=== PATIENT | male | born 1980 | race African-American/Black ===

== ENCOUNTER 2017-11-22 01:35 | Inpatient (IN) | payer MEDICARE, MEDICAID ==
[2017-11-22 02:39] LABS: #Eosinphils 0.1 thou/uL (0.0-0.7); #Lymphocytes 1.6 thou/uL (1.20-3.40); #Monocytes 0.9 thou/uL (0.11-0.59); %Basophils 0.6 % (0.0-1.0); %Eosinophils 1.8 % (0.0-10.0); %Lymphocytes 20.3 % (21.0-51.0); %Monocytes 12.2 % (0.0-10.0); %Neutrophils 65.1 % (42.0-75.0); Hemoglobin 10.1 g/dL (14.0-18.0); Mean Corpuscular HGB CONC 32.7 g/dL (32.0-36.0); Mean Corpuscular Hemoglobin 30.8 pg (27.0-31.0); Mean Corpuscular Volume 94.2 fl (80.0-94.0); Mean Platelet Volume 11.1 fL (7.4-10.4); Platelet Count 127 thou/uL (130-400); RBC Distribution Width 14.6 % (11.5-14.5); Red Blood Cell (RBC) Count 3.29 mill/uL (4.70-6.10); White Blood Cell (WBC) Count 7.7 thou/uL (4.8-10.8)
[2017-11-22] MEDS ORDERED: Calcium Gluc 4.6 MEQ/10 ML (100 MG/ML) ONE (02:39)
[2017-11-22 03:00] LABS: ALT (SGPT) 17 U/L (8-55); AST (SGOT) 19 U/L (5-34); Alkaline Phosphatase 169 U/L (40-150); Anion Gap 19 mmol/L (10-20); BUN (Urea Nitrogen) 108 mg/dL (8.9-20.6); Bilirubin, Total 0.7 mg/dL (0.2-1.2); Calc. Creatinine Clearance 0 mL/min (70-130); Calcium 8.1 mg/dL (7.8-10.44); Carbon Dioxide 21 mmol/L (22-29); Chloride 102 mmol/L (98-107); Estimated GFR-MDRD 5; Globulin 2.9 g/dL (2.4-3.5); Glucose 483 mg/dL (70-105); Protein, Total 6.9 g/dL (6.0-8.3); Sodium 134 mmol/L (136-145)
[2017-11-22 03:03] LABS: CKMB 4.1 ng/mL (0-6.6); Troponin I Less than 0.010 ng/mL (< 0.028)
[2017-11-22 03:04] LABS: Potassium 8.1 mmol/L (3.5-5.1)
[2017-11-22] MEDS ORDERED: Insulin Regular 300 UNITS/3 ML VIAL ONE (03:25)
[2017-11-22] MEDS ORDERED: Dextrose 50% Abboject 50 ML SYRINGE ONE (03:25)
[2017-11-22] MEDS ORDERED: Sodium Bicarb 50 MEQ/50 ML Abboject 8.4% SYRINGE ONE (03:25)
[2017-11-22] MEDS ORDERED: Albuterol Sulfate 2.5 mg/3 ml Neb ONE (03:27)
[2017-11-22] MEDS ORDERED: Acetaminophen 325 MG TAB PO PRN (05:05)
[2017-11-22] MEDS ORDERED: Ondansetron HCl/PF 4 MG/2 ML Vial IVP PRN ×2 (05:05→06:04)
[2017-11-22] MEDS ORDERED: Ondansetron ODT 4 MG TAB SL PRN (05:05)
[2017-11-22] MEDS ORDERED: cloNIDine 0.1 MG TAB PO PRN (06:04)
[2017-11-22] MEDS ORDERED: Acetaminophen 500 MG TAB PO PRN (06:04)
[2017-11-22] MEDS ORDERED: hydrALAZINE 20 MG/ML VIAL SLOW IVP PRN (06:04)
[2017-11-22] MEDS ORDERED: Ondansetron ODT 4 MG TAB PO PRN (06:04)
[2017-11-22] MEDS ORDERED: HumaLOG 300 UNITS/3 ML VIAL SC PRN ×2 (06:04)
[2017-11-22] MEDS ORDERED: Dextrose 5% in Water 1,000 ML IV PRN (06:04)
[2017-11-22] MEDS ORDERED: Dextrose 50% Abboject 50 ML SYRINGE SLOW IVP PRN (06:04)
[2017-11-22 06:23] VITALS: BMI 23.9
--- NOTE | 2017-11-22 07:00 | HP ---
DATE OF ADMISSION: 11/22/2017 PRIMARY CARE PHYSICIAN: Dr. Haydee Guidry. PRIMARY CHIEF SCIENCE OFFICER: Dr. Gonzalez. CHIEF COMPLAINT: High blood sugar. HISTORY OF PRESENT ILLNESS: This is a 37-year-old -Mexican male who presents to [facility] in transport by EMS personnel after patient alerted EMS that he felt dizzy and had high glucose readings. The patient with longstanding history of diabetes mellitus type 1, poorly controlled, on home insulin. The patient states he took his insulin approximately 20 minutes prior to EMS arrival at which point EMS noted an initial glucose at around 600 and 411 in the emergency dep artment. The patient with a longstanding history of noncompliance, missing his regular hemodialysis session in the last 3-5 days. The patient also admits to the use of marijuana and PCP as well as smo des up to a half a pack of cigarettes daily. The patient with longstanding history of multiple admi ssions to [facility] dating back to 2012. The patient does state that he has some abdominal pain and dizziness, but no fever or chills. Some generalized weakness and loose stool s. The patient did not take any specific home remedies or alleviating medications. In the emergency room, the patient underwent general evaluation with metabolic screening showing potassium of 8.1, he moglobin of 13.11 and glucose ranging between 411 to 483. The patient was treated with 10 units of N ovolin R insulin IV push as well as sodium bicarbonate x1 amp, albuterol sulfate 10 mg nebulized and calcium gluconate 1 amp. The patient was also evaluated by the Nephrology Service, undergoing curren t urgent hemodialysis. PAST MEDICAL HISTORY: 1. Diabetes mellitus type 1, insulin requiring, poorly controlled. 2. Noncompliance. 3. Polysubstance abuse. 4. End-stage renal disease on hemodialysis. 5. Hypertension. 6. Peripheral vascular disease. 7. Tobacco abuse. 8. Chronic normocytic anemia secondary to chronic kidney disease. PAST SURGICAL HISTORY: 1. Status post AV fistula placement. 2. 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 CURRENT MEDICATIONS: 1. Amlodipine 10 mg 1 tab p.o. daily. 2. Sensipar 60 mg p.o. daily. 3. Hydralazine 25 mg p.o. t.i.d. 4. Humalog 5 units subcutaneously t.i.d. with meals. 5. Glargine insulin 20 units subcutaneously b.i.d. 6. Sertraline 25 mg p.o. daily. 7. Renvela 800 mg 3 tabs p.o. t.i.d. with meals. ALLERGIES: PENICILLIN. FAMILY HISTORY: Positive for diabetes mellitus. SOCIAL HISTORY: Patient lives with his mother in [facility]. Smokes up to half a pack of cig arettes daily. Current use of marijuana and PCP. REVIEW OF SYSTEMS: The following complete review of systems was negative, unless otherwise mentioned in the HPI or below: Constitutional: Weight loss or gain, ability to conduct usual activities. Skin: Rash, itching. Eyes: Double vision, pain. ENT/Mouth: Nose bleeding, neck stiffness, pain, tenderness. Cardiovascular: Palpitations, dyspnea on exertion, orthopnea. Respiratory: Shortness of breath, wheezing, cough, hemoptysis, fever or night sweats. Gastrointestinal: Poor appetite, abdominal pain, heartburn, nausea, vomiting, constipation, or diarr hea. Genitourinary: Urgency, frequency, dysuria, nocturia. Musculoskeletal: Pain, swelling. Neurologic/Psychiatric: Anxiety, depression. Allergy/Immunologic: Skin rash, bleeding tendency. PHYSICAL EXAMINATION: VITAL SIGNS: On admission, blood pressure 148/73, pulse 87, respiratory rate 18, temperature 97.5 de grees Fahrenheit, O2 saturation 95% on room air. GENERAL APPEARANCE: This is a 37-year-old -Mexican male lying on the hospital bed with a tow el over his face, in no acute distress. HEENT: Pupils are equal, round, and reactive to light and accommodation. Extraocular muscles are in tact. No scleral icterus, no conjunctival injection. Nares patent. OP is clear. NECK: Supple, no cervical adenopathy, no thyromegaly, no carotid bruits, no JVD appreciated. Cervic al spine with full active and passive range of motion. No meningeal signs appreciated. CHEST: Scattered coarse sounds in the bases, otherwise clear. CARDIOVASCULAR: S1, S2 with tachycardia. ABDOMEN: Flat, soft, nontender, nondistended. Bowel sounds are positive in all four quadrants. The re is no hepatosplenomegaly, no abdominal bruits, no rebound or guarding appreciated. EXTREMITIES: Warm and dry with fair turgor. Right zjoxy-azp-jpcf amputation noted. Pulses palpable distally on the left lower extremity at the dorsalis pedis, posterior tibial, and popliteal artery. Left upper extremity with AV fistula in place. NEUROLOGIC: Cranial nerves II through XII are grossly intact. No focal or lateralizing signs apprec iated. PERTINENT LABORATORY DATA AND X-RAY FINDINGS: Sodium 134, potassium 8.1, chloride 102, CO2 of 21, BU N 108, creatinine 13.11. Estimated GFR 5, glucose 483, lactic acid level 0.7. LFTs within normal li mits. Troponin I negative x1. Albumin 4.0. CBC showed a white blood cell count of 7.7, hemoglobin 10, hematocrit 31, MCV 94, platelet count 127 with 65% neutrophils. Beta hydroxybutyrate level 0.07. EKG dated 11/22/2017 by my interpretation shows sinus tachycardia with heart rates in the low 100s. Normal R-wave progression noted in the precordial leads. Left axis deviation. Incomplete right bu ndle miranda block pattern noted. Mild widening of the QRS complex. No acute ST-T wave changes noted . ASSESSMENT AND PLAN: 1. Severe hyperkalemia secondarily to end-stage renal disease and missed hemodialysis. Patient to [facility] urgent hemodialysis at the direction of the Nephrology Service. Continue serial potassium mon itoring. Continue telemetry monitoring in the ICU. The patient initially received insulin, calcium gluconate, and sodium bicarbonate in the emergency room. 2. End-stage renal disease with hemodialysis and noncompliance. The patient will undergo urgent hem odialysis at the direction of Nephrology Service. Case management consult to assist with coordinatio n of outpatient hemodialysis. 3. Diabetes mellitus type 1, insulin requiring, uncontrolled. We will resume home regimen to includ e Levemir 20 units subcutaneously b.i.d. Insulin sliding scale for reflexive coverage. ADA diet. 4. Polysubstance use. We will offer resources for drug abstinence prior to discharge. 5. Chronic anemia secondary to chronic kidney disease. Stable currently. Repeat CBC and monitor tr end. 6. Prophylaxis. Sequential compression devices while in bed. Pepcid 20 mg p.o. b.i.d. 7. Code status is full. Surrogate medical decision maker is the patient's mother.
[2017-11-22 07:08] LABS: HBSAg Index 0.31 S/CO (0-0.99); Hep B Surf Ag Non-Reactive S/CO (NonReactive)
[2017-11-22] MEDS ORDERED: Famotidine 20 MG TAB PO SCH (09:00)
[2017-11-22] MEDS ORDERED: Non-Formulary Item 1 EACH (Insulin Glargine,Hum.Rec.Anlog 20 UNIT) SQ SCH (09:00)
[2017-11-22] MEDS ORDERED: Insulin Detemir 100 UNITS/ML 20 UNITS in Pre-Filled Syringe 1 EACH SC SCH (09:00)
[2017-11-22] MEDS ORDERED: Cinacalcet HCl 30 MG TAB PO SCH (09:00)
[2017-11-22] MEDS: Sevelamer Carbonate 800 MG TAB PO SCH ×2 (10:10→14:05)
[2017-11-22] MEDS: hydrALAZINE 25 MG TAB PO SCH ×3 (10:12→14:36)
[2017-11-22] MEDS: Amlodipine 10 MG TAB PO SCH ×2 (10:12→11:50)
--- NOTE | 2017-11-22 10:15 | CON ---
DATE OF CONSULTATION: 11/22/2017 NEPHROLOGY CONSULTATION REASON FOR CONSULTATION: Hyperkalemia. HISTORY OF PRESENT ILLNESS: A 37-year-old gentleman who presented to the hospital after missing dial ysis for 2 treatments with potassium of 8. The patient denies any nausea, vomiting or chest pain. PAST MEDICAL HISTORY: Significant for hypertension, anemia, end-stage renal disease, history of ampu tation, history of noncompliance, history of drug use, history of psychosocial disorder, history of p eripheral vascular disease, tobacco abuse, history of AV fistula placement, history of tunneled dialy sis catheter. HOME MEDICATIONS: List reviewed. HOSPITAL MEDICATIONS: List reviewed. ALLERGIES: Reviewed. REVIEW OF SYSTEMS: A 15 point review of systems was performed and was negative except for positives noted above. GENERAL: Weakness- HEAD: Headache- NECK: No swelling or lumps. NOSE: No epistaxis or discharge. EYES: No diplopia or pain. RESPIRATORY: Dyspnea- CARDIOVASCULAR: Chest pain- GASTROINTESTINAL: Nausea- /DIRECTOR OF GOLF: Hematuria- MUSCULOSKELETAL: No joint pain. NEUROPSYCHIATIC SYSTEMS: No suicidal ideation. No ideation. SKIN: Denies any rash or ulcer. CONSTITUTIONAL: No fever or chills. FAMILY HISTORY: Negative for ESRD. ALLERGIES: Reviewed. PHYSICAL EXAMINATION: GENERAL: On examination, patient is awake, alert. VITAL SIGNS: Afebrile, pulse 87, breathing at 16, blood pressure 140/73. HEAD/NECK: Normocephalic. Atraumatic. EYES: EOMI. No deformity. EARS: Clear. No ulcers. NOSE: Intact. No lesions. MOUTH: Clear. No discharge. THROAT: Clear. No exudate. LUNGS: Clear. No crackles. CARDIAC: S1, S2. No rub. ABDOMEN: Benign. BS+. GENITALIA/RECTUM: [place] absent. BACK/EXTREMITIES: Edema 0+ Ulcer- NEUROLOGICAL: Alert and motor intact. SKIN: Rash- Bruise- LYMPHATICS: Edema- Ulcer- LABORATORY DATA: Show potassium 8. ASSESSMENT AND PLAN: 1. Stage 6 chronic kidney disease. We will plan hemodialysis. 2. Hypertension, plan ultrafiltration. 3. Anemia, stable. 4. Medications based on glomerular filtration rate are appropriate. Noncompliance is a major issue.
[2017-11-22 10:21] VITALS: TEMP 98.3
--- NOTE | 2017-11-22 11:57 | PDOC.PN ---
- Subjective Encounter Start Date: 11/22/17 Encounter Start Time: 10:45 Subjective: awake, getting HD now -: no sob or palp - Objective Resuscitation Status: Resuscitation Status FULL:Full Resuscitation MAR Reviewed: Yes Vital Signs & Weight: Vital Signs (12 hours) Temp Pulse Resp Pulse Ox 11/22/17 11:50 102 H 11/22/17 10:21 98.3 F 11/22/17 10:12 102 H 11/22/17 08:00 97.8 F 102 H 20 11/22/17 05:00 96.5 F L 100 20 100 Most Recent Monitor Data Heart Rate from ECG 105 NIBP 165/53 NIBP BP-Mean 106 Respiration from ECG 14 SpO2 100 I&O: 11/21/17 11/22/17 11/23/17 06:59 06:59 06:59 Intake Total 0 200 Balance 0 200 Result Diagrams: 11/22/17 02:18 11/22/17 02:18 Additional Labs: Accuchecks 11/22/17 11/22/17 08:17 05:03 POC Glucose 141 H 265 H Phys Exam - Physical Examination HEENT: PERRLA, moist MMs Neck: no JVD, supple Respiratory: no wheezing, no rales Cardiovascular: RRR, no significant murmur Gastrointestinal: soft, non-tender, positive bowel sounds Musculoskeletal: no edema, pulses present Neurological: non-focal, moves all 4 limbs Psychiatric: A&O x 3 Dx/Plan (1) Non-compliance with renal dialysis Code(s): Z91.15 - PATIENT'S NONCOMPLIANCE WITH RENAL DIALYSIS Status: Acute (2) Hyperkalemia Code(s): E87.5 - HYPERKALEMIA Status: Acute (3) Anemia of renal disease Code(s): D63.1 - ANEMIA IN CHRONIC KIDNEY DISEASE Status: Chronic (4) Anxiety and depression Code(s): F41.9 - ANXIETY DISORDER, UNSPECIFIED; F32.9 - MAJOR DEPRESSIVE DISORDER, SINGLE EPISODE, UNSPECIFIED Status: Chronic (5) Diabetes mellitus type 1 Code(s): E10.9 - TYPE 1 DIABETES MELLITUS WITHOUT COMPLICATIONS Status: Chronic (6) Diastolic CHF Code(s): I50.30 - UNSPECIFIED DIASTOLIC (CONGESTIVE) HEART FAILURE Status: Chronic Qualifiers: Congestive heart failure chronicity: chronic (7) Hypertension Code(s): I10 - ESSENTIAL (PRIMARY) HYPERTENSION Status: Chronic Qualifiers: Hypertension type: essential hypertension Qualified Code(s): I10 - Essential (primary) hypertension - Plan is getting emergent HD now -: may tx to telemetry after HD if her bmp is stable -: counselled reg compliance with med and HD -: is on levemir 20u bid, norvasc and hydralazine -: might need repeat HD in am prior to dc * . Review of Systems - Medications/Allergies Allergies/Adverse Reactions: Allergies Allergy/AdvReac Type Severity Reaction Status Date / Time Penicillins Allergy Unknown Verified 03/03/17 13:22 Medications: Current Medications Acetaminophen (Tylenol) 1,000 mg PO Q6H PRN PRN Reason: Headache/Fever or Mild Pain Amlodipine Besylate (Norvasc) 10 mg PO DAILY [facility] Last Admin: 11/22/17 11:50 Dose: 10 mg Cinacalcet (Sensipar) 60 mg PO DAILY [facility] Last Admin: 11/22/17 10:11 Dose: 60 mg Clonidine (Catapres) 0.1 mg PO Q4H PRN PRN Reason: Systolic BP > 180 Dextrose/Water (Dextrose 50%) 25 gm SLOW IVP PRN PRN PRN Reason: Hypoglycemia Famotidine (Pepcid) 20 mg PO DAILY [facility] Last Admin: 11/22/17 10:11 Dose: 20 mg Glucagon (Glucagon) 1 mg IM PRN PRN PRN Reason: Hypoglycemia Hydralazine HCl (Apresoline) 20 mg SLOW IVP Q4H PRN PRN Reason: Systolic BP > 180 Hydralazine HCl (Apresoline) 25 mg PO TID [facility] Last Admin: 11/22/17 11:50 Dose: 25 mg Dextrose/Water (D5w) 1,000 mls @ 0 mls/hr IV .Q0M PRN; As Directed PRN Reason: Hypoglycemia Insulin Detemir 20 units/ (Miscellaneous Medication) 0.2 mls @ 0 mls/hr SC BID [facility] PRN Reason: As Directed Last Admin: 11/22/17 10:10 Dose: 0.2 mls Influenza Virus Vaccine (Fluzone Quad [id number] Syringe) 0.5 ml IM .ONCE ONE Stop: 11/22/17 21:01 Insulin Human Lispro (Humalog) 0 units SC .MODERATE SLIDING SC PRN PRN Reason: Moderate Correctional Scale Insulin Human Lispro (Humalog) 0 units SC .BEDTIME SLIDING SC PRN PRN Reason: Bedtime Correctional Scale Ondansetron HCl (Zofran Odt) 4 mg PO Q6H PRN PRN Reason: Nausea/Vomiting Ondansetron HCl (Zofran) 4 mg IVP Q6H PRN PRN Reason: Nausea/Vomiting Sertraline HCl (Zoloft) 25 mg PO DAILY [facility] Last Admin: 11/22/17 10:11 Dose: 25 mg Sevelamer Carbonate (Renvela) 2,400 mg PO TID-WM [facility] Last Admin: 11/22/17 10:10 Dose: 2,400 mg Sodium Chloride (Flush - Normal Saline) 10 ml IVF Q12HR [facility] Last Admin: 11/22/17 10:12 Dose: 10 ml Sodium Chloride (Flush - Normal Saline) 10 ml IVF PRN PRN PRN Reason: Saline Flush
[2017-11-22 14:27] LABS: Anion Gap 15 mmol/L (10-20); BUN (Urea Nitrogen) 29 mg/dL (8.9-20.6); Calc. Creatinine Clearance 21 mL/min (70-130); Calcium 8.3 mg/dL (7.8-10.44); Carbon Dioxide 28 mmol/L (22-29); Chloride 99 mmol/L (98-107); Estimated GFR-MDRD 15; Glucose 221 mg/dL (70-105); Potassium 5.2 mmol/L (3.5-5.1); Sodium 137 mmol/L (136-145)
--- NOTE | 2017-11-22 14:47 | DIS ---
DATE OF ADMISSION: 11/22/2017 DATE OF DISCHARGE: 11/22/2017 DISCHARGE DISPOSITION: To home. PRIMARY DISCHARGE DIAGNOSES: End-stage renal disease, noncompliant with hemodialysis with hyperkalemia and volume overload, resolved. SECONDARY DISCHARGE DIAGNOSES: Chronic anemia, anxiety, depression, noncompliance with dialysis and medication, diastolic congestive heart failure, diabetes mellitus type 1, hypertension. PROCEDURES DONE DURING HOSPITALIZATION: The patient has had an emergent dialysis done this morning. H&H is 10 and 31. Initial potassium of 8.1 with a BUN of 108 and creatinine of 13. Discharge potassium was 5.2 with a BUN and creatinine of 29 and 5.1. Cardiac enzymes x1 is negative. DISCHARGE MEDICATIONS: Patient to continue all his home medications as before including Norvasc 10 mg daily, Sensipar 60 mg daily, Humalog 5 units subcutaneous 3 times daily based on sliding scale, hydralazine 25 mg 3 times daily, Lantus 20 units subcu twice daily, sertraline 25 mg daily, sevelamer 2400 mg p.o. 3 times daily. ALLERGIES: Allergic to PENICILLIN. DISCHARGE PLAN: Patient to follow up with primary care physician in one week and Dr. Gonzalez as advised. BRIEF COURSE DURING HOSPITALIZATION: Patient initially came to ER with complaints of feeling dizzy and high glucose readings at home. He had also mentioned that he missed his regular dialysis. On arrival, his potassium was 8.1 with a creatinine of nearly 13. The patient was scheduled for emergent hemodialysis. He has had 4-hour session and a repeat potassium level after dialysis is 5.2. His BUN and creatinine at the time of discharge is 29 and 5.1. He needs to have his scheduled HD per prior regimen. He is hemodynamically stable and will be shortly discharged home. He has been cleared by Dr. Gonzalez and Dr. Moreno for critical care. Please see a [id number] documentation on [facility] for the day of discharge. [facility]OSPITALAngelia
[2017-11-22] MEDS ORDERED: FLU VACC QS2017-18 36 mo. & older 0.5 ML SYRINGE IM ONE (21:00)
--- NOTE | 2017-11-23 01:14 | CON ---
DATE OF CONSULTATION: 11/22/2017 HISTORY OF PRESENT ILLNESS: Mr. Swartz is a 37-year-old gentleman I have known him for many yea rs, his mom works with the hospital. Unfortunately, Mr. Swratz is a dialysis patient now. I di d not see him for quite sometime, but his family tell me he was incarcerated for a period of time. Maximo martell missed dialysis early in the week and then yesterday started getting short of breath. He is not co mpliant with fluid restriction or management of his diabetes. He subsequently was admitted and has b een dialyzed and says he feels like he is back to his baseline. He has absolutely no complaints. PAST MEDICAL HISTORY: 1. Remarkable for diabetes. 2. History of substance abuse. 3. End-stage renal disease on dialysis. 4. Hypertension. 5. Peripheral vascular disease. 6. Anemia of chronic disease. 7. History of vascular access procedures. 8. History of right [id number] amputation secondary to infectious process in his foot. MEDICATIONS: He is on amlodipine, Sensipar, hydralazine, insulin, sertraline, and Renvela prior to a dmission. SOCIAL HISTORY: Still smoking. He admits to using marijuana and PCP. He is not a daily drinker. FAMILY HISTORY: Positive for diabetes. Negative for lung disease at an early age. REVIEW OF SYSTEMS: Ten points otherwise completely negative. He says he feels like that he was here just simply because he skipped dialysis. He did not give me a reason why he skipped dialysis. PHYSICAL EXAMINATION: VITAL SIGNS: Blood pressure 167/70, heart rate is 102, respiratory rate was in the teens. No distre ss. HEENT: Pupils are equal. Sclerae is anicteric. NECK: Supple. LUNGS: Clear. HEART: Regular rhythm. ABDOMEN: Soft and nontender. EXTREMITIES: His lower extremities are warm. LABORATORY DATA: White count 7.7, hemoglobin 10.1, platelets 127. Sodium 134, potassium 8.1, chlori de 102, bicarbonate 21, BUN 108, creatinine 13. Today this afternoon, his sodium is 137, potassium 5 .2, chloride 99, bicarbonate 28, BUN 29, creatinine 5.14, glucose 221. Beta hydroxybutyrate was done . Drug screen was done. IMPRESSION: Noncompliance both with medications and dialysis. He appears to be clinically stable, e nough to discharge. He can be seen in dialysis clinic. Fridays is his dialysis day. Dr. Gonzalez will decide on whether or not he needs dialysis tomorrow, but we all agree that he is a cand idate for discharge and is medically stable at this point in time. So 50-minute consult greater than 50% of the time was spent coordinating in the care unit discussing care with physicians. There is no family available.
--- NOTE | 2017-11-25 13:47 | EKG ---
Test Reason : Blood Pressure : / mmHG Vent. Rate : 085 BPM Atrial Rate : 085 BPM P-R Int : 172 ms QRS Dur : 108 ms QT Int : 362 ms P-R-T Axes : 057 -37 066 degrees QTc Int : 430 ms Normal sinus rhythm Left axis deviation Incomplete right bundle branch block Anteroseptal infarct , age undetermined Abnormal ECG Confirmed by PAUL ROJAS ([id number]), assistant film editor ABRIL VAZQUEZ ([id number]) on 11/25/2017 1:47:15 PM Referred By: Confirmed By:PAUL ROJAS
== END 2017-11-22 15:30 | disposition home or self-care (01) | DRG 640 ==
LOC: ERS 01:35 → CCU 04:54
PROVIDERS: ADMIT Family Medicine; ATTEND Family Medicine
PROC: 5A1D70Z Performance of Urinary Filtration, Intermittent, Less than 6 Hours Per Day (ICD-10-PCS; principal; 2017-11-22)
DX: E87.5 Hyperkalemia (principal); N18.6 End stage renal disease; I13.2 Hypertensive heart and chronic kidney disease with heart failure and with stage 5 chronic kidney disease, or end stage renal disease; E10.22 Type 1 diabetes mellitus with diabetic chronic kidney disease; E10.51 Type 1 diabetes mellitus with diabetic peripheral angiopathy without gangrene; I50.32 Chronic diastolic (congestive) heart failure; E10.65 Type 1 diabetes mellitus with hyperglycemia; Z99.2 Dependence on renal dialysis; Z91.15 Patient's noncompliance with renal dialysis; Z79.4 Long term (current) use of insulin; F17.210 Nicotine dependence, cigarettes, uncomplicated; Z83.3 Family history of diabetes mellitus; F19.90 Other psychoactive substance use, unspecified, uncomplicated; D63.1 Anemia in chronic kidney disease; F41.9 Anxiety disorder, unspecified; F32.9 Major depressive disorder, single episode, unspecified; Z89.511 Acquired absence of right leg below knee; Z91.14 Patient's other noncompliance with medication regimen
CPT/HCPCS: 36415; 36416; 80053; 82010; 82553; 83605; 84484; 85025; 87340; 90935; 93005; 94644; 96374; 96375; G0257; J1815; J7611

== ENCOUNTER 2017-12-08 08:05 | Emergency (ER) | payer MEDICARE, MEDICAID ==
--- NOTE | 2017-12-08 09:10 | RAD ---
PA AND LATERAL VIEWS CHEST: HISTORY: Fall, right-sided chest pain, rib pain. FINDINGS/IMPRESSION: Comparison is made with the exam of 06/02/17. The heart size is borderline. Vascular stents in the left upper extremity and subclavian region are again seen. There is mild pulmonary vascular congestion. No lobar consolidation, pneumothoraces, or pleural effusions are seen. POS: [facility]
--- NOTE | 2017-12-08 09:12 | RAD ---
RIGHT RIB SERIES: HISTORY: Right-sided rib pain, fell in the shower 2 days ago. FINDINGS/IMPRESSION: No right-sided rib fracture is seen. POS: [facility]
--- NOTE | 2017-12-16 18:03 | EKG ---
Test Reason : Blood Pressure : / mmHG Vent. Rate : 080 BPM Atrial Rate : 080 BPM P-R Int : 140 ms QRS Dur : 086 ms QT Int : 348 ms P-R-T Axes : 051 025 060 degrees QTc Int : 401 ms Normal sinus rhythm Normal ECG Confirmed by JASSI DUMONT, HEIDY ([id number]), magazine editor VINI DE LA CRUZ ([id number]) on 12/16/2017 6:03:10 PM Referred By: JASSI Confirmed By:HEIDY KEENE MD
== END 2017-12-08 09:29 | disposition home or self-care (01) ==
LOC: ERS 08:05
DX: S23.41XA Sprain of ribs, initial encounter (principal); E78.5 Hyperlipidemia, unspecified; I13.2 Hypertensive heart and chronic kidney disease with heart failure and with stage 5 chronic kidney disease, or end stage renal disease; N18.5 Chronic kidney disease, stage 5; I50.9 Heart failure, unspecified; Z99.2 Dependence on renal dialysis; Z86.73 Personal history of transient ischemic attack (TIA), and cerebral infarction without residual deficits; F17.210 Nicotine dependence, cigarettes, uncomplicated; Z79.899 Other long term (current) drug therapy; Z79.4 Long term (current) use of insulin; W01.0XXA Fall on same level from slipping, tripping and stumbling without subsequent striking against object, initial encounter; Y93.E1 Activity, personal bathing and showering
CPT/HCPCS: 71046; 93005

== ENCOUNTER 2017-12-27 09:00 | Emergency (ER) | payer MEDICARE, MEDICAID ==
--- NOTE | 2017-12-27 09:55 | RAD ---
PORTABLE CHEST: History: Weakness, trauma. Comparison: 12-08-17 FINDINGS: Lungs are clear. No infiltrate. Heart and mediastinum unremarkable. Stent material is seen overlying the region of the left subclavian vein, left axillary vein, and venous structures in the mid to dista l humerus region of the left upper extremity. IMPRESSION: No acute lung process. POS: [facility]
[2017-12-27 10:53] LABS: Band 4 % (5-11); Hemoglobin 12.5 g/dL (14.0-18.0); Lymphocytes 24 % (21-51); MDiff Complete? YES; Mean Corpuscular HGB CONC 32.6 g/dL (32.0-36.0); Mean Corpuscular Volume 92.2 fl (80.0-94.0); Mean Platelet Volume 11.1 fL (7.4-10.4); Monocytes 14 % (0-10); Neutrophil 58 % (42-75); PLT Morphology Comment Appears Decreased; Platelet Count 104 thou/uL (130-400); RBC Distribution Width 14.6 % (11.5-14.5); Red Blood Cell (RBC) Count 4.15 mill/uL (4.70-6.10); White Blood Cell (WBC) Count 5.9 thou/uL (4.8-10.8)
[2017-12-27 11:00] LABS: ALT (SGPT) 8 U/L (8-55); AST (SGOT) 15 U/L (5-34); Alkaline Phosphatase 125 U/L (40-150); Anion Gap 29 mmol/L (10-20); BUN (Urea Nitrogen) 55 mg/dL (8.9-20.6); Bilirubin, Total 0.6 mg/dL (0.2-1.2); Calc. Creatinine Clearance 0 mL/min (70-130); Calcium 8.7 mg/dL (7.8-10.44); Carbon Dioxide 21 mmol/L (22-29); Chloride 89 mmol/L (98-107); Estimated GFR-MDRD 8; Globulin 3.5 g/dL (2.4-3.5); Glucose 483 mg/dL (70-105); Potassium 5.2 mmol/L (3.5-5.1); Protein, Total 7.5 g/dL (6.0-8.3); Sodium 134 mmol/L (136-145)
[2017-12-27 11:10] LABS: CKMB 1.5 ng/mL (0-6.6); Troponin I Less than 0.010 ng/mL (< 0.028)
[2017-12-27] MEDS ORDERED: Insulin Regular 300 UNITS/3 ML VIAL ONE (13:17)
== END 2017-12-27 14:31 | disposition home or self-care (01) ==
LOC: ERS 09:00
DX: R53.1 Weakness (principal); I13.2 Hypertensive heart and chronic kidney disease with heart failure and with stage 5 chronic kidney disease, or end stage renal disease; N18.5 Chronic kidney disease, stage 5; I50.9 Heart failure, unspecified; E11.22 Type 2 diabetes mellitus with diabetic chronic kidney disease; E78.5 Hyperlipidemia, unspecified; F17.210 Nicotine dependence, cigarettes, uncomplicated; Z99.2 Dependence on renal dialysis; Z86.73 Personal history of transient ischemic attack (TIA), and cerebral infarction without residual deficits; Z79.4 Long term (current) use of insulin; Z79.899 Other long term (current) drug therapy
CPT/HCPCS: 36416; 71045; 80053; 82553; 83880; 84484; 85025; 93005; J1815

== ENCOUNTER 2018-01-05 01:38 | Emergency (ER) | payer MEDICARE, MEDICAID | END 2018-01-05 02:06 | disposition left against medical advice (07) | LOC: ERS 01:38 | DX: Z53.21 Procedure and treatment not carried out due to patient leaving prior to being seen by health care provider (principal) ==

== ENCOUNTER 2018-01-09 13:59 | Inpatient (IN) | payer MEDICARE, MEDICAID ==
[2018-01-09 15:31] LABS: Base Excess-Venous -16.4 mmol/L (0 (+/- 2.5)); Bicarbonate (HCO3v) 10.7 mmol/L (1.0-85.0); CO2 Tension (PvCO2) 29.6 mmHg (41.0-51.0); Calcium, Ionized 0.92 mmol/L (1.12-1.32); Hemoglobin - Calc 15.6 g/dL (12.0-18.0); O2 Tension (PvO2) 40.9 mmHg (35.0-45.0); Potassium 7.6 mmol/L (3.4-4.7); T. Carbon Dioxide 11.6 mmol/L (1.0-85.0); pH (Venous) 7.168 (7.35-7.45); vO2 Saturation-calc 63.6 % (94-98)
[2018-01-09 15:39] LABS: Hemoglobin 12.9 g/dL (14.0-18.0); Mean Corpuscular HGB CONC 31.7 g/dL (32.0-36.0); Mean Corpuscular Hemoglobin 29.3 pg (27.0-31.0); Mean Corpuscular Volume 92.6 fl (80.0-94.0); Mean Platelet Volume 11.7 fL (7.4-10.4); Platelet Count 203 thou/uL (130-400); RBC Distribution Width 14.6 % (11.5-14.5); Red Blood Cell (RBC) Count 4.41 mill/uL (4.70-6.10); White Blood Cell (WBC) Count 23.9 thou/uL (4.8-10.8)
[2018-01-09] MEDS ORDERED: Calcium Gluconate 4.6 MEQ in Sodium Chloride 0.9% 100 ML IVPB ONE (15:45)
[2018-01-09 16:07] LABS: Anisocytosis SLIGHT = 6-15 cells (100X) (0-5/hpf); Band 24 % (5-11); Hypochromia SLIGHT = 6-15 cells (100X) (0-5/hpf); Lymphocytes 5 % (21-51); MDiff Complete? YES; Monocytes 7 % (0-10); Neutrophil 64 % (42-75); PLT Morphology Comment Appears Adequate
[2018-01-09 16:09] LABS: ALT (SGPT) Less than 7 U/L (8-55); AST (SGOT) 7 U/L (5-34); Albumin 3.6 g/dL (3.5-5.0); Alkaline Phosphatase 151 U/L (40-150); Anion Gap 44 mmol/L (10-20); BUN (Urea Nitrogen) 115 mg/dL (8.9-20.6); Bilirubin, Total 0.6 mg/dL (0.2-1.2); Calc. Creatinine Clearance 0 mL/min (70-130); Calcium 10.4 mg/dL (7.8-10.44); Carbon Dioxide 10 mmol/L (22-29); Chloride 79 mmol/L (98-107); Estimated GFR-MDRD 3; Globulin 4.8 g/dL (2.4-3.5); Magnesium 2.9 mg/dL (1.6-2.6); Potassium 8.4 mmol/L (3.5-5.1); Protein, Total 8.4 g/dL (6.0-8.3); Sodium 125 mmol/L (136-145)
[2018-01-09 16:10] LABS: Glucose 895 mg/dL (70-105)
[2018-01-09] MEDS ORDERED: Insulin Regular 300 UNITS/3 ML VIAL ONE (16:14)
[2018-01-09] MEDS ORDERED: Albuterol Sulfate 2.5 mg/3 ml Neb ONE (16:19)
[2018-01-09] MEDS ORDERED: Albuterol Sulfate 2.5 mg/0.5 ml Neb ONE (16:19)
[2018-01-09] MEDS ORDERED: Insulin Regular 100 units/100 ml in NS IVPB SCH (17:00)
[2018-01-09 18:04] LABS: HBSAg Index 0.17 S/CO (0-0.99); Hep B Surf Ag Non-Reactive S/CO (NonReactive)
--- NOTE | 2018-01-09 18:33 | RAD ---
RADIOGRAPH CHEST 1 VIEW: Date: 01/09/18 Time: 5:25 p.m. HISTORY: 37-year-old male with cough. COMPARISON: 12/27/17. FINDINGS: There is a new finding of air space density in the right lower lobe. There is a milder new right uppe r lobe infiltrate. There is unilateral diffuse prominence of the right interstitial markings througho ut the right lung zones. The left lung remains clear. The cardiomediastinal silhouette is normal. Lat eral costophrenic angles are sharp. Again noted are the multiple metallic left sided vascular stents. IMPRESSION: 1. Right lower lobe pneumonia. 2. Probable right upper lobe pneumonia also. 3. Left subclavian and left axillary vascular stents. ZEB [] POS: [facility]
--- NOTE | 2018-01-09 19:08 | HP ---
PRIMARY CARE PHYSICIAN: The patient does not have a primary care physician. CHIEF COMPLAINT: Not feeling well. HISTORY OF PRESENT ILLNESS: Mr. Brush is a 37-year-old gentleman who has a history of end-stag e renal disease on hemodialysis. He is well known to the [facility] as he has had [facility] over the past few years. The patient says that he was encouraged to come t o the hospital after he talked with his parents and told him that he was not feeling well. He says paz martell basically has just been giving up, he has not gone to dialysis in over a week and has barely been e ating, and when he arrived to the hospital, he was found to be hyperkalemic with a potassium of 8.4. His blood glucose was 895 and he is acidotic with a carbon dioxide level of 10. He also says that h jayshree has been coughing, it has been relatively nonproductive and as well as feeling a bit short of breat h, but no nausea, no vomiting. The patient appears very depressed. He is tearful and is unable to g fiona me any additional history. When asked if he has sought any care or counseling with regard to his depression as I had recently seen him about 6 months ago and had recommended this, he states no. REVIEW OF SYSTEMS: CONSTITUTIONAL: There has been no fevers, no chills, no night sweats. He has had poor appetite. HEENT: No headache, no dizziness, no visual changes, no sore throat, no rhinorrhea, neck pain, no ad enopathy. PULMONARY: He complains of some cough which has been primarily dry, no hemoptysis. CARDIOVASCULAR: He says he has had some pains in his chest, but no PND, no orthopnea, no palpitation s. GASTROINTESTINAL: No abdominal pain, no nausea, no vomiting, no change in bowels. GENITOURINARY: No hematuria, no dysuria. MUSCULOSKELETAL: He denies any joint pains or rash. SKIN AND INTEGUMENT: No skin changes. No rash. PSYCHIATRIC: The patient has been extremely depressed and does not want to go on, but does not have any active plan to hurt himself other than not going to dialysis. PAST MEDICAL HISTORY: Taken from my previous history and physical and includes a history of end-stag e renal disease on hemodialysis, diabetes mellitus type 1 and hypertension, also history of polysubst ance abuse. PAST SURGICAL HISTORY: He has had a right rekan-prf-gltm amputation and a dialysis catheter placed. ALLERGIES: PENICILLIN. SOCIAL HISTORY: He is a nonsmoker, nondrinker. He lives with his mother. FAMILY HISTORY: Significant for diabetes mellitus. MEDICATIONS: These will need to be reconciled with the patient to determine what he is actually curr ently taking. PHYSICAL EXAMINATION: GENERAL: He is alert and oriented. He appears to be in no acute distress. He is a bit cachectic in appearance. VITAL SIGNS: Blood pressure was 123/79, heart rate 107, respiratory rate of 22, and he is afebrile. HEENT: Pupils are equal, round, and reactive. Extraocular muscles are intact. His sclerae are anic teric. Throat: He has extremely dry mucous membranes, actually cracking of the skin on the lips. NECK: There is no adenopathy, no bruits. LUNGS: He has got bilateral rhonchi as well as some rales. There was no wheezing. CARDIOVASCULAR: Heart rate is tachycardic, it is regular. There are no murmurs, clicks, no rubs. ABDOMEN: Soft, nontender, nondistended. Positive for bowel sounds. No rebound, no guarding. EXTREMITIES: There is no edema. He has a left qxhlw-zkl-anin amputation. The right leg, there is n o edema. His dorsalis pedis pulses are palpable, but diminished. NEUROLOGICALLY: The exam is nonfocal. LABORATORY RESULTS: Sodium was 125, potassium 8.4, chloride 79, CO2 is 10, BUN of 115, creatinine 21 , glucose is 895. Beta hydroxybutyrate is 11. 27. White blood cell count is 23.9, hemoglobin 12.9, hematocrit is 40.8, platelet count is 203. Chest x-ray has been ordered. ASSESSMENT AND PLAN: 1. This is a 37-year-old gentleman that has missed over a week's worth of dialysis. He has been fou nd to be hyperkalemic and acidotic. He also has an elevated blood glucose and an elevated anion gap and elevated beta hydroxybutyrate. He also has a significant leukocytosis as well. Therefore likely , the patient has diabetic ketoacidosis as well as uremia from missed dialysis with hyperkalemia and possibly could have a superimposed sepsis as well. He will be admitted to the ICU. His casting molder , Dr. Hurd has already been contacted and the plan is for emergent dialysis. He has been given ca lcium carbonate in the emergency room and EKG which was reviewed by myself did not show any peaked T waves, only some nonspecific ST wave changes with some sinus tachycardia. 2. With regard to the diabetic ketoacidosis, this will be treated with an IV insulin infusion given his history of end-stage renal disease. We will hold off on maintenance IV fluids. He has been give n a liter of normal saline in the ER. Electrolyte abnormalities will need to be adjusted by his neph rologist. 3. Leukocytosis and cough. I suspect he could possibly have a bronchitis or even an early pneumonia . This will be covered with Levaquin renally dosed. 4. Severe depression. He will be placed on an antidepressant. We will continue Zoloft and consult [facility] prior to discharge to get him hooked up with the mental health system, which will hopefully faci litate him getting treatment for depression.
[2018-01-09 20:04] LABS: Lactic Acid 4.9 mmol/L (0.5-2.2)
[2018-01-09] MEDS ORDERED: D5 1/2 NS w/20 mEq KCL 1,000 ML IV PRN (20:33)
[2018-01-09] MEDS ORDERED: NS 0.9% w/ 20 MEQ KCL 1,000 ML/1,000 ML BAG IV PRN ×2 (20:33)
[2018-01-09] MEDS ORDERED: Sodium Chloride 0.9% 1,000 ML IV PRN ×4 (20:33)
[2018-01-09] MEDS ORDERED: Dextrose 5% in Water 1,000 ML IV PRN (20:33)
[2018-01-09] MEDS ORDERED: Dextrose 5 %-0.45 % NaCl 1,000 ML IV PRN (20:33)
[2018-01-09] MEDS ORDERED: Dextrose 50% Abboject 50 ML SYRINGE SLOW IVP PRN (20:36)
[2018-01-09] MEDS ORDERED: ADD ELECTROLYTE REPLACEMENT SET TO PROFILE FS SCH ×2 (20:45)
[2018-01-09] MEDS: Sodium Chloride 0.9% 1,000 ML IV SCH (21:00)
[2018-01-09] MEDS ORDERED: Sodium Chloride 0.9% 1,000 ML IV SCH (21:15)
[2018-01-09 22:54] LABS: Glucose 875 mg/dL (70-105)
[2018-01-09] MEDS ORDERED: Ziprasidone 20 MG VIAL IM SCH (23:45)
[2018-01-10 00:42] VITALS: BMI 19.1
[2018-01-10] MEDS ORDERED: Lorazepam 1 MG TAB PO PRN (07:36)
[2018-01-10] MEDS ORDERED: Benzonatate 100 MG CAP PO PRN (07:36)
[2018-01-10] MEDS ORDERED: Ondansetron HCl/PF 4 MG/2 ML Vial IVP PRN (07:36)
[2018-01-10] MEDS ORDERED: Acetaminophen 325 MG TAB PO PRN ×2 (07:36)
[2018-01-10] MEDS ORDERED: hydrALAZINE 20 MG/ML VIAL SLOW IVP PRN (07:36)
[2018-01-10] MEDS ORDERED: Ondansetron ODT 4 MG TAB PO PRN (07:36)
[2018-01-10] MEDS ORDERED: Metoclopramide HCl 10 MG/2 ML VIAL IVP PRN (07:36)
[2018-01-10] MEDS ORDERED: Heparin 5,000 UNITS/ML VIAL SC SCH ×2 (07:36→08:30)
[2018-01-10] MEDS: Sodium Chloride 0.9% 1,000 ML IV SCH (08:33)
[2018-01-10 08:58] LABS: Anion Gap 19 mmol/L (10-20); BUN (Urea Nitrogen) 47 mg/dL (8.9-20.6); Calc. Creatinine Clearance 9 mL/min (70-130); Calcium 10.2 mg/dL (7.8-10.44); Carbon Dioxide 26 mmol/L (22-29); Chloride 98 mmol/L (98-107); Estimated GFR-MDRD 7; Glucose 88 mg/dL (70-105); Potassium 4.5 mmol/L (3.5-5.1); Sodium 138 mmol/L (136-145)
[2018-01-10] MEDS ORDERED: FLU VACC QS2017-18 36 mo. & older 0.5 ML SYRINGE IM ONE (09:00)
[2018-01-10] MEDS ORDERED: Famotidine 40 MG/4 ML VIAL SLOW IVP SCH (09:00)
[2018-01-10] MEDS ORDERED: Dextrose 50% Abboject 50 ML SYRINGE SLOW IVP PRN (09:33)
[2018-01-10] MEDS ORDERED: Dextrose 5% in Water 1,000 ML IV PRN (09:33)
--- NOTE | 2018-01-10 09:40 | PDOC.PN ---
- Subjective Encounter Start Date: 01/10/18 Encounter Start Time: 09:37 Mr. Brush was seen today in follow-up. He still appears extremely depressed. He does not have any physical complaints. - Objective Resuscitation Status: Resuscitation Status FULL:Full Resuscitation MAR Reviewed: Yes Vital Signs & Weight: Vital Signs (12 hours) Temp Pulse Ox 01/10/18 07:00 98.1 F 01/10/18 01:40 98.7 F 01/10/18 01:30 95 Weight Weight 144 lb 9.972 oz Most Recent Monitor Data Heart Rate from ECG 108 NIBP 98/55 NIBP BP-Mean 68 Respiration from ECG 23 SpO2 97 I&O: 01/09/18 01/10/18 01/11/18 06:59 06:59 06:59 Intake Total 2438.7 50 Balance 2438.7 50 Result Diagrams: 01/09/18 15:17 01/10/18 07:43 Additional Labs: Accuchecks 01/10/18 01/10/18 01/10/18 07:38 06:30 05:19 POC Glucose 88 101 126 H 01/10/18 01/10/18 01/10/18 04:40 03:14 01:55 POC Glucose 173 H 234 H 293 H Phys Exam - Physical Examination HEENT: PERRLA Respiratory: no rhonchi + rales at the right upper lobe, no wheezing Cardiovascular: RRR, no significant murmur, no rub Gastrointestinal: soft, non-tender, positive bowel sounds Musculoskeletal: no edema Dx/Plan (1) Depression Code(s): F32.9 - MAJOR DEPRESSIVE DISORDER, SINGLE EPISODE, UNSPECIFIED Status : Acute (2) Pneumonia Code(s): J18.9 - PNEUMONIA, UNSPECIFIED ORGANISM Status: Acute (3) ESRD (end stage renal disease) on dialysis Code(s): N18.6 - END STAGE RENAL DISEASE; Z99.2 - DEPENDENCE ON RENAL DIALYSIS Status: Acute (4) Hyperkalemia Code(s): E87.5 - HYPERKALEMIA Status: Acute (5) Non-compliance with renal dialysis Code(s): Z91.15 - PATIENT'S NONCOMPLIANCE WITH RENAL DIALYSIS Status: Acute (6) Hypertension Code(s): I10 - ESSENTIAL (PRIMARY) HYPERTENSION Status: Chronic Qualifiers: (7) DKA (diabetic ketoacidoses) Code(s): E13.10 - [facility] DIABETES MELLITUS WITH KETOACIDOSIS WITHOUT COMA Status : Resolved - Plan * Hyperkalemia- resolved after Emergent dialysis * DKA- resolved- will discontinue insulin drip, and blade changer to scheduled Levemis, and a SSI * Pneumonia- CAP vs. HAP ( recent hospitalization and dialysis)- will continue Levaquin for now * HTN- blood pressure is currently low, will hold on re-starting his antihypertensives until his blood pressure raises * Depression- continue Zoloft, and short brief couseling- MR consult when he is medically stable for discharge * Will transfer him out of the ICU.
--- NOTE | 2018-01-10 09:48 | CON ---
DATE OF CONSULTATION: 01/09/2018 CONSULTING PHYSICIAN: Rudy Marie M.D. REASON FOR CONSULTATION: Evaluation and care. REASON FOR ADMISSION: Not feeling well. HISTORY OF PRESENT ILLNESS: This is a 37-year-old -[place] male with history of end-stage re nal disease, hypertension, type 2 diabetes, who came to the hospital after missing dialysis for a wee k and was not feeling well and was found to have hyperkalemic and acidotic and Nephrology is consulte d for maintenance hemodialysis. No fever or chills reported. No nausea or vomiting. PAST MEDICAL HISTORY: Positive for type 2 diabetes, hypertension, end-stage renal disease. PAST SURGICAL HISTORY: Right rgsjr-kxn-vdrw knee amputation, dialysis catheter placement. HOME MEDICATIONS: List is not available now. ALLERGIES: PENICILLIN. SOCIAL HISTORY: No smoking, alcohol or illicit drugs abuse. History of substance abuse in the past. FAMILY HISTORY: Positive for diabetes. REVIEW OF SYSTEMS: The following complete review of systems was negative, unless otherwise mentioned in the HPI or below: Constitutional: Weight loss or gain, ability to conduct usual activities. Skin: Rash, itching. Eyes: Double vision, pain. ENT/Mouth: Nose bleeding, neck stiffness, pain, tenderness. Cardiovascular: Palpitations, dyspnea on exertion, orthopnea. Respiratory: Shortness of breath, whee zing, cough, hemoptysis, fever or night sweats. Gastrointestinal: Poor appetite, abdominal pain, hea rtburn, nausea, vomiting, constipation, or diarrhea. Genitourinary: Urgency, frequency, dysuria, noc turia. Musculoskeletal: Pain, swelling. Neurologic/Psychiatric: Anxiety, depression. Allergy/Immun ologic: Skin rash, bleeding tendency. PHYSICAL EXAMINATION: GENERAL: Well-built male in no apparent distress. VITAL SIGNS: Temperature afebrile, pulse 107, respiratory rate 22, and blood pressure 123/79. HEENT: Atraumatic, normocephalic. Oral mucosa is very dry. NECK: Supple. CARDIOVASCULAR: S1 and S2 heard. Rate and rhythm regular. RESPIRATORY: Clear. GASTROINTESTINAL: Abdomen is soft. MUSCULOSKELETAL: No tenderness. No edema. DERMATOLOGIC: No skin rash. NEUROLOGIC: Alert and awake. PSYCHIATRIC: Mood and affect normal. LABORATORY AND X-RAY FINDINGS: Sodium 125, potassium 3.4, glucose 895, bicarbonate is 10. AST 7, ALT less than 7. Hemoglobin is 12.9. ASSESSMENT AND PLAN: 1. End-stage renal disease. Plan is to have emergent dialysis. 2. Hyperkalemia, most likely from diabetic ketoacidosis. We will have dialysis. 3. Hyponatremia. 4. Hyperglycemia. 5. Metabolic acidosis. 6. Hypoalbuminemia. 7. Hypertension and noncompliance. 8. Overall, prognosis is poor. Plan is to have emergent dialysis. Dialysis nurse notified.
[2018-01-10] MEDS: Sevelamer Carbonate 800 MG TAB PO SCH ×2 (12:05→17:07)
[2018-01-10] MEDS: HYDROcodone/Acetaminophen 5/325 mg Tablet PO PRN (13:21)
[2018-01-10 13:51] LABS: Anion Gap 20 mmol/L (10-20); BUN (Urea Nitrogen) 50 mg/dL (8.9-20.6); Calc. Creatinine Clearance 9 mL/min (70-130); Carbon Dioxide 23 mmol/L (22-29); Chloride 97 mmol/L (98-107); Estimated GFR-MDRD 7; Glucose 218 mg/dL (70-105); Potassium 4.7 mmol/L (3.5-5.1); Sodium 135 mmol/L (136-145)
--- NOTE | 2018-01-10 14:17 | CON ---
DATE OF CONSULTATION: 01/10/2018 HISTORY OF PRESENT ILLNESS: A 37-year-old gentleman with end-stage renal disease. He sees Dr. Moreno and comes to the hospital with marked weakness, tired, not feeling well, generalized overall letharg y. He has not been on dialysis for over a week at least. Admitting potassium level was 8.4. He underwent emergency dialysis. This morning, he says he is feeling weak. Denies any chest pain, chills or sweats. Extensive histor y, multiple admissions here. He was last here in October. PAST MEDICAL HISTORY: Pertinent for diabetes, end-stage renal disease, hypertension, high cholestero l. PAST SURGICAL HISTORY: Right BKA. SOCIAL HISTORY: Apparently, he is still using marijuana. He continues to smoke half pack a day, unc lear alcohol abuse. ALLERGIES: PENICILLIN. MEDICATIONS: Previous medication from home include hydralazine 25 three times a day, Renvela, Zoloft 25, insulin 20 units twice a day, Humalog 5 units, Sensipar, and amlodipine 10. SOCIAL AND FAMILY HISTORY: Disabled. REVIEW OF SYSTEMS: Otherwise, 10-point negative. Please note, I reviewed all his x-rays and reports personally. PHYSICAL EXAMINATION: GENERAL: In ICU, he is awake, alert, responsive. VITAL SIGNS: Blood pressure of 103/68, pulse 78, sats 94%, respirations 18. CHEST: No wheezing, no crackles. CARDIAC: Normal S1, S2. No gallops. ABDOMEN: Soft. No masses. LABORATORY AND X-RAY FINDINGS: Creatinine is 10.8, BUN is 47. His x-ray shows no acute infiltrates. IMPRESSION: 1. End-stage renal disease with noncompliance with dialysis. 2. Diabetes. 3. Hypertension. 4. Possibly right lower pneumonia. PLAN: Continue dialysis. I may empirically put him on an antibiotic. Neb treatment, supportive care. I will follow while in the ICU. This is a consultation note, 70 minutes of which 50% of time spent in direct patient care at the beds [facility].
[2018-01-10] MEDS: Heparin 5,000 UNITS/ML VIAL SC SCH ×2 (15:24→21:33)
--- NOTE | 2018-01-10 16:49 | PRG ---
NEPHROLOGY PROGRESS NOTE DATE OF SERVICE: 01/10/2018 SUBJECTIVE: Patient was seen and examined at bedside and overnight events noted. Patient denies any shortness of breath or chest pain or palpitation. No history of nausea or vomiting or diarrhea or f ever or chills or cramps. OBJECTIVE: GENERAL: This is a well-built male in no apparent distress. VITAL SIGNS: Temperature 98.3, pulse 96, respiratory rate 22 and blood pressure 146/69. HEENT: Atraumatic, normocephalic. Oral mucosa is moist. NECK: Supple. CARDIOVASCULAR: S1, S2 heard. Rate and rhythm regular. RESPIRATORY: Clear to auscultation. GASTROINTESTINAL: Abdomen is soft. MUSCULOSKELETAL: No tenderness. No edema. DERMATOLOGIC: No skin rash. NEUROLOGIC: Alert and awake and oriented x3. No focal neurologic deficits. Moving all the extremit ies. PSYCHIATRIC: Mood and affect normal. LABORATORY DATA: Potassium is 4.7, BUN is 50 and creatinine is 10.6. ASSESSMENT AND PLAN: 1. End-stage renal disease, on hemodialysis. We will continue on dialysis Monday, Monday and Mon day as tolerated. 2. Hyponatremia, better. 3. Hyperglycemia. 4. Metabolic acidosis. 5. Hypertension. Overall, prognosis is poor. We will continue on dialysis as tolerated.
[2018-01-10] MEDS: HumaLOG 300 UNITS/3 ML VIAL SC PRN ×2 (17:09→21:29)
[2018-01-10 18:00] LABS: Anion Gap 20 mmol/L (10-20); BUN (Urea Nitrogen) 51 mg/dL (8.9-20.6); Calc. Creatinine Clearance 9 mL/min (70-130); Calcium 10.6 mg/dL (7.8-10.44); Carbon Dioxide 24 mmol/L (22-29); Chloride 97 mmol/L (98-107); Estimated GFR-MDRD 7; Glucose 263 mg/dL (70-105); Potassium 4.9 mmol/L (3.5-5.1); Sodium 136 mmol/L (136-145)
[2018-01-10] MEDS ORDERED: Non-Formulary Item 1 EACH (Insulin Glargine,Hum.Rec.Anlog 20 UNIT) SQ SCH (21:00)
[2018-01-10] MEDS: Insulin Detemir 100 UNITS/ML 20 UNITS in Pre-Filled Syringe 1 EACH SC SCH (21:29)
[2018-01-11 04:47] LABS: ALT (SGPT) Less than 7 U/L (8-55); AST (SGOT) 22 U/L (5-34); Albumin 2.7 g/dL (3.5-5.0); Alkaline Phosphatase 120 U/L (40-150); Anion Gap 21 mmol/L (10-20); BUN (Urea Nitrogen) 56 mg/dL (8.9-20.6); Bilirubin, Total 0.4 mg/dL (0.2-1.2); Calc. Creatinine Clearance 8 mL/min (70-130); Calcium 10.9 mg/dL (7.8-10.44); Carbon Dioxide 23 mmol/L (22-29); Chloride 100 mmol/L (98-107); Estimated GFR-MDRD 6; Globulin 3.7 g/dL (2.4-3.5); Phosphorus 5.9 mg/dL (2.3-4.7); Potassium 4.7 mmol/L (3.5-5.1); Protein, Total 6.4 g/dL (6.0-8.3); Sodium 139 mmol/L (136-145)
[2018-01-11 04:52] LABS: Glucose 50 mg/dL (70-105)
[2018-01-11 05:20] LABS: Band 32 % (5-11); Hemoglobin 10.6 g/dL (14.0-18.0); Lymphocytes 1 % (21-51); MDiff Complete? YES; Mean Corpuscular HGB CONC 32.7 g/dL (32.0-36.0); Mean Corpuscular Hemoglobin 29.2 pg (27.0-31.0); Mean Corpuscular Volume 89.3 fl (80.0-94.0); Mean Platelet Volume 11.3 fL (7.4-10.4); Metamyelocyte 9 % (0-0); Monocytes 7 % (0-10); Myelocyte 2 % (0-0); Neutrophil 49 % (42-75); PLT Morphology Comment Appears Adequate; Platelet Count 142 thou/uL (130-400); RBC Distribution Width 14.5 % (11.5-14.5); RBC Morphology Normal; Red Blood Cell (RBC) Count 3.62 mill/uL (4.70-6.10); White Blood Cell (WBC) Count 30.9 thou/uL (4.8-10.8)
[2018-01-11] MEDS ORDERED: Vancomycin HCl 1 GM in Premix Bag 1 BAG IVPB SCH (07:00)
[2018-01-11] MEDS: Sevelamer Carbonate 800 MG TAB PO SCH ×4 (08:46→16:06)
[2018-01-11] MEDS: Cinacalcet HCl 30 MG TAB PO SCH ×2 (08:47→10:08)
[2018-01-11] MEDS: Insulin Detemir 100 UNITS/ML 20 UNITS in Pre-Filled Syringe 1 EACH SC SCH ×2 (08:47→21:23)
--- NOTE | 2018-01-11 09:36 | PQF ---
CLINICAL DOCUMENTATION IMPROVEMENT CLARIFICATION FORM: ICD-10 Updated PLEASE DO AN ADDENDUM TO THE PROGRESS NOTE WITH ANY DOCUMENTATION UPDATES OR ADDITIONS AND CARRY THROUGH TO DC SUMMARY. THANK YOU. DATE: 01/11 & ATTN: DR. Toby DESAI / DR. LEXIE BONILLA Please exercise your independent, professional judgment in responding to the clarification form. Clinical indicators are provided on the bottom of this form for your review. Please check appropriate box(es): [ ] Sepsis due to: (Pna, UTI, gangrenous gall bladder, etc.) [ ] Localized infection without sepsis [ ] Other diagnosis [ ] Unable to determine For continuity of documentation, please document condition throughout progress notes and discharge summary. Thank You. CLINICAL INDICATORS - SIGNS / SYMPTOMS / LABS ER PRESENTATION 01/09: WBC 23.9 HR: 116 RR: 22 LACTIC ACID: 2.4 - 4.9 CXR 01/09: IMPRESSION: 1) RLL PNEUMONIA, 2) PROBABLE RUL PNEUMONIA ALSO ATTENDING H&P DOCUMENTATION 01/09: ASSESSMENT & PLAN: 1). HE ALSO HAS A SIGNIFICANT LEUKOCYTOSIS WELL. THEREFORE LIKELY, THE PATIENT HAS DKA WELL UREMIA & POSSIBLY COULD HAVE A SUPERIMPOSED SEPSIS WELL. PULMONOLOGY CONSULT DOCUMENTATION 01/10: IMPRESSION: 4) POSSIBLE RL PNEUMONIA ATTENDING PN 01/10: DX/PLAN: 2) PNEUMONIA, UNSPECIFIED ORGANISM, ACUTE BLOOD CULTURES 2 OF 2: POSITIVE MSSA RISK FACTORS: PNEUMONIA ESRD ON DIALYSIS TOBACCO ABUSE POSITIVE BLOOD CULTURE TREATMENTS: PULMONOLOGY CONSULT IV ANTIBIOTICS (LEVOFLOXACIN & VANCOMYCIN 01/09 - PRESENT) THANK YOU! Joana (This form is maintained as a part of the permanent medical record) 2014 [employer]. All Rights Reserved Joana Miller RN, BSN [email or web address] Office: [phone] [facility]
[2018-01-11] MEDS: Heparin 5,000 UNITS/ML VIAL SC SCH ×3 (10:09→21:20)
--- NOTE | 2018-01-11 14:20 | PRG ---
DATE OF SERVICE: 01/11/2018 OBJECTIVE: VITAL SIGNS: Blood pressure is 182/97, sats 92% on 2 liters, pulse 102, temperature 97. CHEST: Decreased breath sounds, no wheezing. CARDIAC: Normal S1, S2. No gallops. ABDOMEN: Soft. No masses. LABORATORY DATA AND IMAGING DATA: Blood culture is growing Staph aureus. X-ray shows right-sided in filtrate. IMPRESSION: Renal failure, right-sided pneumonia. Vancomycin was started for positive blood culture . Await results of sensitivities and deescalate. On hemodialysis, continue aggressive PT. We will follow.
--- NOTE | 2018-01-11 15:32 | PDOC.PN ---
- Subjective Encounter Start Date: 01/11/18 Encounter Start Time: 15:30 Subjective: seen and examined no new complaint - Objective Resuscitation Status: Resuscitation Status FULL:Full Resuscitation Vital Signs & Weight: Vital Signs (12 hours) Temp Pulse Resp BP Pulse Ox 01/11/18 11:59 97.5 F L 101 H 20 165/83 H 98 01/11/18 08:11 97.6 F 102 H 18 182/97 H 99 01/11/18 08:00 97.6 F 102 H 18 99 01/11/18 04:00 98.5 F 94 18 166/84 H 93 L Weight Weight 145 lb 2 oz Most Recent Monitor Data Heart Rate from ECG 96 NIBP 167/87 NIBP BP-Mean 116 Respiration from ECG 16 SpO2 91 I&O: 01/10/18 01/11/18 01/12/18 06:59 06:59 06:59 Intake Total 2438.7 2002 360 Output Total 0 Balance 2438.7 2002 360 Result Diagrams: 01/11/18 04:07 01/11/18 04:07 Additional Labs: Accuchecks 01/11/18 01/11/18 01/11/18 12:00 07:53 06:32 POC Glucose 127 H 121 H 77 01/11/18 01/11/18 01/11/18 05:34 05:10 04:52 POC Glucose 113 H 67 L 37 L* 01/11/18 01/10/18 01/10/18 04:35 21:30 17:02 POC Glucose 38 L* 198 H 253 H 01/09/18 20:18 POC Glucose Greater than 550 H* Phys Exam - Physical Examination Constitutional: NAD HEENT: PERRLA, moist MMs, sclera anicteric Neck: no nodes, no JVD, supple, full ROM Respiratory: no wheezing, no rales, no rhonchi, clear to auscultation bilateral Cardiovascular: RRR, no significant murmur, no rub Gastrointestinal: soft, non-tender, no distention, positive bowel sounds Dx/Plan (1) Bacteremia Code(s): R78.81 - BACTEREMIA Status: Acute (2) Depression Code(s): F32.9 - MAJOR DEPRESSIVE DISORDER, SINGLE EPISODE, UNSPECIFIED Status : Acute (3) ESRD (end stage renal disease) on dialysis Code(s): N18.6 - END STAGE RENAL DISEASE; Z99.2 - DEPENDENCE ON RENAL DIALYSIS Status: Acute (4) Hyperkalemia Code(s): E87.5 - HYPERKALEMIA Status: Acute (5) Non-compliance with renal dialysis Code(s): Z91.15 - PATIENT'S NONCOMPLIANCE WITH RENAL DIALYSIS Status: Acute (6) Anemia of renal disease Code(s): D63.1 - ANEMIA IN CHRONIC KIDNEY DISEASE Status: Chronic - Plan continue antibiotics, PT/OT, social work nurse Hopefully the graft is not seeded * .
--- NOTE | 2018-01-11 22:14 | PRG ---
DATE OF SERVICE: 01/11/2018 SUBJECTIVE: Gonsalo says he is feeling better. His events were reviewed. OBJECTIVE: VITAL SIGNS: He is afebrile, heart rate is 96, respiratory 20, oximetry is 100% on 2 liters, and blo od pressure 145/75. LUNGS: Clear. HEART: Regular rhythm. ABDOMEN: Soft. LABORATORY DATA: Blood culture shows 1/2 positive for Staph aureus. White count 30.9, hemoglobin 10 .6, platelets are 142, 000. He has 32% bands on his peripheral smear. IMPRESSION: 1. Bacteremia. I suspect this is a true positive. 2. Pneumonia, clinically stable. His left shift is concern, but clinically he says he is feeling better and he looks to be in no distr ess. His compliance issues have been present as long as I have known him, which dates back many, many year s. He has a family member that works in the hospital. She has kept me updated on how he is doing on ce he was in the, I believe the [place] [employer]. Now, he continues to be noncomplian t. I will continue the antibiotics. I would be concerning that he has a graft issue now that he has Sta ph aureus growing from his blood.
[2018-01-12] MEDS: HumaLOG 300 UNITS/3 ML VIAL SC PRN ×2 (06:20→12:57)
--- NOTE | 2018-01-12 08:45 | PRG ---
DATE OF SERVICE: 01/11/2018 SUBJECTIVE: Patient was seen and examined at bedside and overnight events noted. Patient denies any shortness of breath or chest pain or palpitation. No history of nausea or vomiting or diarrhea or f ever or chills or cramps. OBJECTIVE: GENERAL: This is a well-built male in no apparent distress. VITAL SIGNS: Temperature is 98.3, pulse 93, respiratory rate 18 and blood pressure 145/75. HEENT: Atraumatic, normocephalic. Oral mucosa is moist. NECK: Supple. CARDIOVASCULAR: S1, S2 heard. Rate and rhythm regular. RESPIRATORY: Clear to auscultation. GASTROINTESTINAL: Abdomen is soft. MUSCULOSKELETAL: No tenderness. No edema. DERMATOLOGIC: No skin rash. NEUROLOGIC: Alert and awake and oriented x3. No focal neurologic deficits. Moving all the extremit ies. PSYCHIATRIC: Mood and affect normal. LABORATORY DATA: Today, potassium is 4.7, BUN is 56, creatinine is 11.4 and glucose 140. One out of two blood cultures showing Staphylococcus aureus. Follow up. We will recommend to repeat blood cultures. ASSESSMENT AND PLAN: 1. End-stage renal disease, on hemodialysis. Continue on dialysis as tolerated. 2. Hyponatremia, . 3. Metabolic acidosis. 4. Hypertension 5. Edema, controlled. Plan is to continue on dialysis as tolerated.
[2018-01-12] MEDS: Insulin Detemir 100 UNITS/ML 20 UNITS in Pre-Filled Syringe 1 EACH SC SCH ×2 (10:08→22:16)
[2018-01-12] MEDS: Cinacalcet HCl 30 MG TAB PO SCH (10:08)
[2018-01-12] MEDS: Sevelamer Carbonate 800 MG TAB PO SCH ×3 (10:08→18:44)
[2018-01-12] MEDS: Heparin 5,000 UNITS/ML VIAL SC SCH ×2 (10:08→21:28)
--- NOTE | 2018-01-12 14:30 | PDOC.PN ---
- Subjective Encounter Start Date: 01/12/18 Encounter Start Time: 14:28 Subjective: seen and examined with swollen access arm - Objective Resuscitation Status: Resuscitation Status FULL:Full Resuscitation Vital Signs & Weight: Vital Signs (12 hours) Temp Pulse Resp BP Pulse Ox 01/12/18 08:00 98.6 F 100 16 98 01/12/18 07:20 98.6 F 100 16 117/59 L 98 Weight Weight 154 lb 6 oz Most Recent Monitor Data Heart Rate from ECG 96 NIBP 167/87 NIBP BP-Mean 116 Respiration from ECG 16 SpO2 91 I&O: 01/11/18 01/12/18 01/13/18 06:59 06:59 06:59 Intake Total 2002 360 Output Total 0 Balance 2002 360 Result Diagrams: 01/17/18 10:30 01/17/18 10:30 Additional Labs: Accuchecks 01/12/18 01/12/18 01/11/18 12:56 04:06 16:34 POC Glucose 243 H 347 H 114 H Phys Exam - Physical Examination Constitutional: NAD HEENT: PERRLA, moist MMs, sclera anicteric, TM's clear Dx/Plan (1) Bacteremia Code(s): R78.81 - BACTEREMIA Status: Acute (2) Depression Code(s): F32.9 - MAJOR DEPRESSIVE DISORDER, SINGLE EPISODE, UNSPECIFIED Status : Acute (3) ESRD (end stage renal disease) on dialysis Code(s): N18.6 - END STAGE RENAL DISEASE; Z99.2 - DEPENDENCE ON RENAL DIALYSIS Status: Chronic (4) Hyperkalemia Code(s): E87.5 - HYPERKALEMIA Status: Acute (5) Non-compliance with renal dialysis Code(s): Z91.15 - PATIENT'S NONCOMPLIANCE WITH RENAL DIALYSIS Status: Acute (6) Anemia of renal disease Code(s): D63.1 - ANEMIA IN CHRONIC KIDNEY DISEASE Status: Chronic - Plan continue antibiotics, healthcare social worker Dialysis per renal * .
--- NOTE | 2018-01-12 14:55 | PRG ---
DATE OF SERVICE: 01/12/2018 SUBJECTIVE: Mr. Brush has no new problems. PHYSICAL EXAMINATION: VITAL SIGNS: He remains afebrile, heart rate 100, respiratory rate 16, oximetry is 98% on room air. LUNGS: Unchanged and clear. LABORATORY DATA: He has got 2/2 blood cultures positive now. IMPRESSION: Staphylococcus aureus bacteremia. Consultation with Infectious Disease should be entert ained. We will probably need long-term IV antibiotic therapy depending on sensitivities. This at [facility] early on appears to be an oxacillin-sensitive Staphylococcus aureus. He does have pneumonia, but this is very mild. I suspect that this is the same pathogen. No further intervention is required from pulmonary standpoint. We will sign off.
--- NOTE | 2018-01-12 19:21 | PRG ---
DATE OF SERVICE: 01/12/2018 SUBJECTIVE: Patient was seen and examined at bedside and overnight events noted. Patient denies any shortness of breath or chest pain or palpitation. No history of nausea or vomitin g or diarrhea or fever or chills or cramps. OBJECTIVE: GENERAL: This is a well-built male, in no apparent distress. VITAL SIGNS: Temperature 98.6, pulse 100, respiratory rate 18, blood pressure 117/59. HEENT: Atraumatic, normocephalic. Oral mucosa is moist NECK: Supple. CARDIOVASCULAR: S1 and S2 heard. Rate and rhythm regular. RESPIRATORY: Clear to auscultation. GASTROINTESTINAL: Abdomen is soft. MUSCULOSKELETAL: No tenderness. No edema. DERMATOLOGIC: No skin rash. NEUROLOGIC: Alert and awake and oriented X3, No focal neurologic deficits. Moving all the extremitie s. PSYCHIATRIC: Mood and affect normal. LABORATORY DATA: Not done today. ASSESSMENT AND PLAN: 1. End-stage renal disease, currently on hemodialysis, tolerated. 2. Hyponatremia. 3. Metabolic acidosis. 4. Hypertension. 5. Edema. 6. Anemia. Plan is to continue on dialysis as tolerated.
[2018-01-13] MEDS: HumaLOG 300 UNITS/3 ML VIAL SC PRN (00:42)
[2018-01-13] MEDS: Sevelamer Carbonate 800 MG TAB PO SCH ×4 (08:56→17:59)
[2018-01-13] MEDS: Cinacalcet HCl 30 MG TAB PO SCH (08:56)
[2018-01-13] MEDS: Heparin 5,000 UNITS/ML VIAL SC SCH ×2 (08:57→21:15)
[2018-01-13] MEDS: Insulin Detemir 100 UNITS/ML 20 UNITS in Pre-Filled Syringe 1 EACH SC SCH (08:58)
[2018-01-13 09:48] LABS: Anion Gap 14 mmol/L (10-20); BUN (Urea Nitrogen) 36 mg/dL (8.9-20.6); Calc. Creatinine Clearance 16 mL/min (70-130); Calcium 9.4 mg/dL (7.8-10.44); Carbon Dioxide 28 mmol/L (22-29); Chloride 94 mmol/L (98-107); Estimated GFR-MDRD 12; Glucose 102 mg/dL (70-105); Potassium 4.2 mmol/L (3.5-5.1); Sodium 132 mmol/L (136-145)
[2018-01-13 14:45] LABS: Hemoglobin 9.9 g/dL (14.0-18.0); Mean Corpuscular HGB CONC 31.1 g/dL (32.0-36.0); Mean Corpuscular Hemoglobin 28.7 pg (27.0-31.0); Mean Corpuscular Volume 92.3 fl (80.0-94.0); Platelet Count 120 thou/uL (130-400); RBC Distribution Width 14.7 % (11.5-14.5); Red Blood Cell (RBC) Count 3.44 mill/uL (4.70-6.10); White Blood Cell (WBC) Count 21.9 thou/uL (4.8-10.8)
[2018-01-13 14:56] LABS: Band 16 % (5-11); Lymphocytes 5 % (21-51); MDiff Complete? YES; Metamyelocyte 2 % (0-0); Monocytes 7 % (0-10); Neutrophil 70 % (42-75); PLT Morphology Comment Appears Decreased; Polychromasia SLIGHT = 2-3 cells (100X) (0-2/hpf); Target Cells SLIGHT = 2-5 cells (100X) (0-1/hpf)
--- NOTE | 2018-01-13 16:03 | PDOC.PN ---
- Subjective Encounter Start Date: 01/13/18 Encounter Start Time: 16:00 Mr. Brush was seen today in follow-up. He is feeling a bit weak , and believes his blood sugar is low. He also has a poor appetite. He is still feeling depressed off and on. - Objective Resuscitation Status: Resuscitation Status FULL:Full Resuscitation MAR Reviewed: Yes Vital Signs & Weight: Vital Signs (12 hours) Temp Pulse Resp BP Pulse Ox 01/13/18 08:00 99.6 F 95 18 147/84 H 94 L Weight Weight 154 lb 6 oz Most Recent Monitor Data Heart Rate from ECG 96 NIBP 167/87 NIBP BP-Mean 116 Respiration from ECG 16 SpO2 91 I&O: 01/12/18 01/13/18 01/14/18 06:59 06:59 06:59 Intake Total 360 100 480 Balance 360 100 480 Result Diagrams: 01/13/18 14:35 01/13/18 09:19 Additional Labs: Accuchecks 01/13/18 01/13/18 01/13/18 15:49 11:07 04:18 POC Glucose 39 L* 90 157 H 01/13/18 01/12/18 01/12/18 00:00 21:51 17:41 POC Glucose 425 H 375 H 248 H 01/12/18 15:44 POC Glucose 171 H Phys Exam - Physical Examination HEENT: PERRLA Respiratory: no wheezing, no rales, no rhonchi, clear to auscultation bilateral Cardiovascular: RRR, no significant murmur, no rub Gastrointestinal: soft, non-tender, positive bowel sounds Musculoskeletal: no edema Dx/Plan (1) Depression Code(s): F32.9 - MAJOR DEPRESSIVE DISORDER, SINGLE EPISODE, UNSPECIFIED Status : Acute (2) Pneumonia Code(s): J18.9 - PNEUMONIA, UNSPECIFIED ORGANISM Status: Acute (3) ESRD (end stage renal disease) on dialysis Code(s): N18.6 - END STAGE RENAL DISEASE; Z99.2 - DEPENDENCE ON RENAL DIALYSIS Status: Acute (4) Hyperkalemia Code(s): E87.5 - HYPERKALEMIA Status: Acute (5) Non-compliance with renal dialysis Code(s): Z91.15 - PATIENT'S NONCOMPLIANCE WITH RENAL DIALYSIS Status: Acute (6) Hypertension Code(s): I10 - ESSENTIAL (PRIMARY) HYPERTENSION Status: Chronic Qualifiers: (7) DKA (diabetic ketoacidoses) Code(s): E13.10 - OTH DIABETES MELLITUS WITH KETOACIDOSIS WITHOUT COMA Status : Resolved - Plan * Pneumonia- continue Levaquin * MSSA bacteremia- He has quite a bit of swelling around the A-V graft site- will consult ID for further recommendation * Depression- continue Zoloft * DM- will decrease his insulin dose * HTN- blood pressure is stable
--- NOTE | 2018-01-13 16:39 | PRG ---
DATE OF SERVICE: 01/13/2018 SUBJECTIVE: Patient was seen and examined at bedside and overnight events noted. Patient denies any shortness of breath or chest pain or palpitation. No history of nausea or vomiting or diarrhea or fev er or chills or cramps. OBJECTIVE: General: This is a well-built male in no apparent distress. VITAL SIGNS: Temperature 99.6, pulse 74, respiratory rate 18, and blood pressure 147/84. HEENT: Atraumatic, normocephalic, Oral mucosa is moist. Neck: Supple. Cardiovascular: S1 and S2 heard. Rate and rhythm regular. Respiratory: Clear to auscultation. Gastrointestinal: Abdomen is soft. Musculoskeletal: No tenderness. No edema. Dermatologic: No skin rash. Neurologic: Alert and awake and oriented X3. No focal neurologic deficits. Moving all the extremities . Psychiatric: Mood and affect normal. LABORATORY DATA: Potassium is 4.2, BUN is 36, and creatinine 6.4. ASSESSMENT AND PLAN: 1. End-stage renal disease on hemodialysis, tolerated. 2. Acidosis. 3. Hypertension. 4. Hyperkalemia, better. 5. Edema. 6. Anemia. 7. Continue dialysis on Monday, Monday, and Monday.
[2018-01-13] MEDS: Insulin Detemir 100 UNITS/ML 10 UNITS in Pre-Filled Syringe 1 EACH SC SCH (21:15)
[2018-01-14] MEDS: Insulin Detemir 100 UNITS/ML 10 UNITS in Pre-Filled Syringe 1 EACH SC SCH ×2 (01:39→22:40)
[2018-01-14 05:28] LABS: Anion Gap 14 mmol/L (10-20); BUN (Urea Nitrogen) 45 mg/dL (8.9-20.6); Calc. Creatinine Clearance 14 mL/min (70-130); Calcium 8.8 mg/dL (7.8-10.44); Carbon Dioxide 27 mmol/L (22-29); Chloride 93 mmol/L (98-107); Estimated GFR-MDRD 10; Glucose 262 mg/dL (70-105); Potassium 4.2 mmol/L (3.5-5.1); Sodium 130 mmol/L (136-145)
[2018-01-14 05:49] LABS: Band 3 % (5-11); Hemoglobin 9.6 g/dL (14.0-18.0); Lymphocytes 9 % (21-51); MDiff Complete? YES; Mean Corpuscular HGB CONC 32.1 g/dL (32.0-36.0); Mean Corpuscular Hemoglobin 29.1 pg (27.0-31.0); Mean Corpuscular Volume 90.5 fl (80.0-94.0); Mean Platelet Volume 10.5 fL (7.4-10.4); Microcytosis SLIGHT = 6-15 cells (100X) (0-5/hpf); Monocytes 16 % (0-10); Neutrophil 72 % (42-75); Nucleated RBC 1 % (0); PLT Morphology Comment Appears Decreased; Platelet Count 99 thou/uL (130-400); RBC Distribution Width 14.8 % (11.5-14.5); White Blood Cell (WBC) Count 15.6 thou/uL (4.8-10.8)
[2018-01-14] MEDS: Cinacalcet HCl 30 MG TAB PO SCH (08:02)
[2018-01-14] MEDS: Sevelamer Carbonate 800 MG TAB PO SCH ×4 (08:02→17:36)
[2018-01-14] MEDS: Heparin 5,000 UNITS/ML VIAL SC SCH ×2 (08:05→20:42)
[2018-01-14] MEDS: Insulin Detemir 100 UNITS/ML 15 UNITS in Pre-Filled Syringe 1 EACH SC SCH (09:34)
--- NOTE | 2018-01-14 14:24 | PRG ---
DATE OF SERVICE: 01/14/2018 SUBJECTIVE: Patient was seen and examined at bedside and overnight events noted. Patient denies any shortness of breath or chest pain or palpitation. No history of nausea or vomiting or diarrhea or f ever or chills or cramps. OBJECTIVE: GENERAL: This is a well-built male in no apparent distress. VITAL SIGNS: Temperature 98.7, pulse 94, respiratory rate 18, blood pressure 157/83. HEENT: Atraumatic, normocephalic. Oral mucosa is moist. NECK: Supple. CARDIOVASCULAR: S1, S2 heard. Rate and rhythm regular. RESPIRATORY: Clear to auscultation. GASTROINTESTINAL: Abdomen is soft. MUSCULOSKELETAL: No tenderness, no edema. DERMATOLOGIC: No skin rash. NEUROLOGIC: Alert and awake and oriented x3. No focal neurologic deficits. Moving all the extremit ies. PSYCHIATRIC: Mood and affect normal. LABORATORY DATA: Potassium is 4.2, BUN is 45, creatinine 7.4. ASSESSMENT AND PLAN: 1. End-stage renal disease. Continue on hemodialysis. 2. Edema, controlled. 3. Hypertension. 4. Anemia. 5. Hyperkalemia, better. 6. Continue dialysis as tolerated. Follow up culture results.
--- NOTE | 2018-01-14 14:49 | PDOC.PN ---
- Subjective Encounter Start Date: 01/14/18 Encounter Start Time: 14:48 Mr. Brush was seen today in follow-up. He says he is feeling overall better. He is less tired. With regards to depression, he says the feeling come and go. He is receptive to getting counseling, and would like information from [facility]. - Objective Resuscitation Status: Resuscitation Status FULL:Full Resuscitation MAR Reviewed: Yes Vital Signs & Weight: Vital Signs (12 hours) Temp Pulse Resp BP Pulse Ox 01/14/18 08:00 99.5 F 93 16 157/83 H 93 L Weight Weight 154 lb 6 oz Most Recent Monitor Data Heart Rate from ECG 96 NIBP 167/87 NIBP BP-Mean 116 Respiration from ECG 16 SpO2 91 I&O: 01/13/18 01/14/18 01/15/18 06:59 06:59 06:59 Intake Total 100 1110 360 Balance 100 1110 360 Result Diagrams: 01/14/18 04:56 01/14/18 04:56 Additional Labs: Accuchecks 01/14/18 01/14/18 01/14/18 11:13 09:26 04:46 POC Glucose 139 H 189 H 263 H 01/14/18 01/13/18 01/13/18 01:27 19:41 16:31 POC Glucose 421 H 228 H 210 H 01/13/18 15:49 POC Glucose 39 L* Phys Exam - Physical Examination HEENT: PERRLA Respiratory: wheezing present + occasional wheeze, no rhonchi Cardiovascular: RRR, no significant murmur, no rub Gastrointestinal: soft, non-tender, positive bowel sounds Musculoskeletal: edema present + swelling in the left upper extremity, mild warmth Dx/Plan (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 Code(s): E10.8 - TYPE 1 DIABETES MELLITUS WITH UNSPECIFIED COMPLICATIONS Status: Chronic (2) Depression Code(s): F32.9 - MAJOR DEPRESSIVE DISORDER, SINGLE EPISODE, UNSPECIFIED Status : Acute (3) Pneumonia Code(s): J18.9 - PNEUMONIA, UNSPECIFIED ORGANISM Status: Acute (4) ESRD (end stage renal disease) on dialysis Code(s): N18.6 - END STAGE RENAL DISEASE; Z99.2 - DEPENDENCE ON RENAL DIALYSIS Status: Acute (5) Hyperkalemia Code(s): E87.5 - HYPERKALEMIA Status: Acute (6) Non-compliance with renal dialysis Code(s): Z91.15 - PATIENT'S NONCOMPLIANCE WITH RENAL DIALYSIS Status: Acute (7) Hypertension Code(s): I10 - ESSENTIAL (PRIMARY) HYPERTENSION Status: Chronic Qualifiers: (8) Bacteremia due to Staphylococcus aureus Code(s): R78.81 - BACTEREMIA Status: Acute - Plan * Staph Bacteremia- Continue Levaquin, await further recommendation from ID * DM type I- blood glucose is better * Depression- continue Zoloft, and will consult [facility] in the AM * ESRD- continue dialysis as per Nephrology.
[2018-01-14] MEDS ORDERED: Metoclopramide HCl 10 MG TAB PO PRN (16:21)
--- NOTE | 2018-01-14 17:46 | CT ---
CT THORAX WITHOUT IV CONTRAST: Date: 01/14/18 HISTORY: Fall, right-sided chest pain for 1 week. Bacteremia/pneumonia. Shortness of breath. FINDINGS: There are reticulonodular opacities seen throughout the right lung. There are a few minimal reticulon odular densities within the left lower lobe. There are cavitary lesions seen in the right perihilar l ocation, largest in the right middle lobe measuring 4.2 cm x 4.2 cm. There are several smaller rounde d cavitary lesions seen in the right upper lobe with a few also seen in the right lower lobe. There i s a pleural based mass-like density seen at the medial aspect of the posterolateral right lung base w hich measures 3.6 cm x 2.3 cm. There is no cavitation in this structure. There are a few punctate renata cifications within this mass. The esophagus is distended with gas, and there is particulate matter seen within the distal esophagus . Findings may be related to gastroesophageal reflux. Lack of intravenous contrast limits evaluation of the mediastinal structures. No definite enlarged ly mph nodes are seen by CT size criteria. Vascular stents are seen in the region of the left subclavian vein, as well as in a vein within the medial left arm incompletely imaged. Small varices are seen within the subcutaneous soft tissues left chest. The upper abdomen demonstrates a grossly normal nonenhanced CT appearance. There is mild subcutaneous edema seen. A very tiny pericardial effusion is seen. IMPRESSION: 1. Evidence for atypical infectious process with reticulonodular opacities bilaterally, much greater throughout the right lung, with multiple cavitary lesions seen throughout the right upper, right mid dle, and right lower lobes, with largest cavitary lesion right middle lobe measuring 4.2 cm. 2. Increased density pleural based mass at the posteromedial right lower lobe. The exact etiology fo r this mass is uncertain. There is no cavitation seen within this structure. Neoplastic process could not be entirely excluded. 3. Gaseous distention of the esophagus with particulate matter in the esophagus, which may be relate d to gastroesophageal reflux. 4. Vascular stents on the left in the left subclavian vein and probably in the left axillary vein. V aricosities are seen overlying the left chest anteriorly. 5. No right-sided rib fracture is seen, and there is no evidence of a pneumothorax. POS: [facility]
--- NOTE | 2018-01-14 18:44 | CON ---
DATE OF CONSULTATION: 01/14/2018 REASON FOR CONSULTATION: Bacteremia. HISTORY OF PRESENT ILLNESS: A 37-year-old patient, who has history of end-stage renal disease on hem odialysis through left upper extremity AV graft, who was admitted after having developed recrudescenc e of his depression and then having presented for his weekly hemodialysis treatments, decreased oral intake. He presented to the emergency room eventually with hyperkalemia and hyperglycemia and metabo lic acidosis. He had some cough with no sputum production. The patient was quite tearful on arrival . No headaches. No back pain or neck pain. A little bit of tenderness in the left arm, but not muc h at the site of the AV graft. No abdominal pain or diarrhea. No genitourinary symptoms, no joint s ymptoms. PAST MEDICAL HISTORY: Type 1 diabetes mellitus, hemodialysis, AV graft left upper extremity, hyperte nsion, history of polysubstance use, but not IV drug use. PAST SURGICAL HISTORY: Right BKA, dialysis access catheters placement. ALLERGIES: PENICILLIN. SOCIAL HISTORY: Nonsmoker, lives with mother in [facility]. FAMILY HISTORY: Diabetes type 2. CURRENT MEDICATIONS: Include, Tylenol, [place], DuoNeb, Tessalon, Sensipar, dextrose, heparin, insulin , levofloxacin, and ondansetron. PHYSICAL EXAMINATION: VITAL SIGNS: Includes temperature max 99.6, blood pressure 150/83, pulse 93, respirations 16, and O2 sat 92%. SKIN: Still a little bit tearful but better than before, left arm AV fistula with no inflammatory ch anges or drainage. Little tenderness. No lymphadenopathy. HEENT: Ocular movements conjugate. Oral cavity with numerous missing teeth. NECK: Supple. BACK: No back tenderness. LUNGS: With scattered inspiratory crackles, no wheezing. HEART: S1, S2, without murmurs. ABDOMEN: Soft, not tender or distended. EXTREMITIES: No joint inflammatory activity. The BKA stump site appears normal. Left foot with no edema. Pulses are diminished dorsalis pedis, but he is able to move extremities. NEUROLOGIC: Cognitive function appears to be intact. LABORATORY DATA: White cell count of 23.9 and now is 15.6, hemoglobin 12.9, platelets 203 and now 99 , bands are 24 down to 3% now. Chemistry with a creatinine that is 7.41. Transaminase is normal, al bumin 2.7. Beta hydroxybutyrate 11.27. Microbiology with methicillin-sensitive Staphylococcus aureu s in 2/2 sets of blood cultures. The imaging studies include a chest x-ray from admission with right lower lobe pneumonia, probably right upper lobe pneumonia. ASSESSMENT: 1. End-stage renal disease secondary to type 1 diabetes mellitus. 2. AV graft left upper extremity with a little bit of tenderness. 3. Methicillin-resistant Staphylococcus aureus bacteremia of uncertain primary site. 4. Pneumonia. DISCUSSION: Differential diagnosis includes endocarditis, right or left-sided versus colonization of the vascular structures in the neck associated with stents versus a primary community-acquired Staph ylococcus aureus pneumonia. No evidence of involvement of the spine were all other osteomuscular str uctures. No intraabdominal inflammatory process noted. Check echocardiogram and CT chest without co ntrast. We will follow up blood cultures, switch him to cefazolin at dialysis plus oral quinolone do se adjusted for renal function. We will need treatment at least for 4 weeks if not longer depending on findings, may need LUIS depending on findings.
[2018-01-14] MEDS: HYDROcodone/Acetaminophen 5/325 mg Tablet PO PRN (20:47)
[2018-01-15] MEDS: Sevelamer Carbonate 800 MG TAB PO SCH ×3 (08:00→17:08)
[2018-01-15] MEDS: Heparin 5,000 UNITS/ML VIAL SC SCH ×2 (11:12→20:39)
[2018-01-15] MEDS: Cinacalcet HCl 30 MG TAB PO SCH (12:08)
--- NOTE | 2018-01-15 12:58 | PRG ---
DATE OF SERVICE: 01/15/2018 SUBJECTIVE: A 37-year-old gentleman who was seen for end-stage renal disease. The patient denies any nausea, vomiting, or chest pain. OBJECTIVE: See above. GENERAL: Patient is awake, alert. VITAL SIGNS: Pulse 75, breathing at 16, blood pressure 164/76. GENERAL APPEARANCE AND MENTAL STATUS: Fair. HEAD/NECK: Normocephalic. Atraumatic. EYES: EOMI. No deformity. EARS: Clear. No ulcers. NOSE: Intact. No lesions. MOUTH: Clear. No discharge. THROAT: Clear. No exudate. LUNGS: Clear. No crackles. CARDIAC: S1, S2. No rub. ABDOMEN: Benign. BS+. GENITALIA/RECTUM: [place] absent. BACK/EXTREMITIES: Edema 0+ ulcer. NEUROLOGICAL: Alert and motor intact. SKIN: Rash- Bruise. LYMPHATICS: Edema - ulcer. LABORATORY DATA: Labs show hemoglobin is 9.6. ASSESSMENT AND PLAN: 1. Stage 6 chronic renal disease, on hemodialysis. 2. Hypertension, stable. 3. Anemia, stable. 4. Medications based on glomerular filtration rate are appropriate. MTDD
[2018-01-15] MEDS ORDERED: Cefepime 1 GM, Admixture Fee 1 EACH in Sodium Chloride 0.9% 10 ML SLOW IVP SCH (13:00)
[2018-01-15] MEDS: CEFAZOLIN 1 GM, Syringe 2.5 ML in Sterile Water 7.5 ML SLOW IVP SCH (13:23)
[2018-01-15] MEDS: HYDROcodone/Acetaminophen 5/325 mg Tablet PO PRN ×2 (13:23→23:18)
[2018-01-15] MEDS: Insulin Detemir 100 UNITS/ML 15 UNITS in Pre-Filled Syringe 1 EACH SC SCH (14:03)
--- NOTE | 2018-01-15 14:43 | PRG ---
DATE OF SERVICE: 01/15/2018 Mr. Brush remains afebrile with stable vital signs. CT was done over the weekend. I reviewed this and nodular cavitary lesions seen in both lungs are consistent with Staphylococcal bacteremia. No biopsies or fiberoptic bronchoscopy is indicated in my opinion at this time. We will need to cont inue his antimicrobial therapy. It is unclear whether or not this is right heart. Endocarditis to g raft-induced bacteremia, but either would lead to a CAT scan that looks like this.
--- NOTE | 2018-01-15 16:20 | PDOC.PN ---
- Subjective Encounter Start Date: 01/15/18 Encounter Start Time: 16:18 Mr. Brush was seen today in follow-up. He says he is beginning to feel a little better. His appetite has improved. - Objective Resuscitation Status: Resuscitation Status FULL:Full Resuscitation MAR Reviewed: Yes Vital Signs & Weight: Vital Signs (12 hours) Temp Pulse Resp BP Pulse Ox 01/15/18 14:09 98.2 F 108 H 18 93 L 01/15/18 12:20 98.2 F 108 H 18 129/85 94 L Weight Weight 154 lb 6 oz Most Recent Monitor Data Heart Rate from ECG 96 NIBP 167/87 NIBP BP-Mean 116 Respiration from ECG 16 SpO2 91 I&O: 01/14/18 01/15/18 01/16/18 06:59 06:59 06:59 Intake Total 1110 610 120 Balance 1110 610 120 Result Diagrams: 01/14/18 04:56 01/14/18 04:56 Additional Labs: Accuchecks 01/15/18 01/15/18 01/15/18 13:35 12:05 03:38 POC Glucose 111 H 112 H 256 H 01/15/18 01/14/18 01/14/18 00:30 21:03 16:26 POC Glucose 218 H 179 H 142 H Phys Exam - Physical Examination HEENT: PERRLA Respiratory: wheezing present + rhonchi bilaterally R>L Cardiovascular: RRR, no significant murmur, no rub Gastrointestinal: soft, non-tender, no distention, positive bowel sounds Musculoskeletal: no edema Dx/Plan (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 Code(s): E10.8 - TYPE 1 DIABETES MELLITUS WITH UNSPECIFIED COMPLICATIONS Status: Chronic (2) Depression Code(s): F32.9 - MAJOR DEPRESSIVE DISORDER, SINGLE EPISODE, UNSPECIFIED Status : Acute (3) Pneumonia Code(s): J18.9 - PNEUMONIA, UNSPECIFIED ORGANISM Status: Acute (4) ESRD (end stage renal disease) on dialysis Code(s): N18.6 - END STAGE RENAL DISEASE; Z99.2 - DEPENDENCE ON RENAL DIALYSIS Status: Acute (5) Hyperkalemia Code(s): E87.5 - HYPERKALEMIA Status: Acute (6) Non-compliance with renal dialysis Code(s): Z91.15 - PATIENT'S NONCOMPLIANCE WITH RENAL DIALYSIS Status: Acute (7) Hypertension Code(s): I10 - ESSENTIAL (PRIMARY) HYPERTENSION Status: Chronic Qualifiers: (8) Bacteremia due to Staphylococcus aureus Code(s): R78.81 - BACTEREMIA Status: Acute - Plan * Staph sepsis and Cavitary Pneumonia due to Staph ( MSSA)- ID input appreciated * He has been changed to Cefazolin, and will require at minimum 4 weeks of treatment * DM- blood glucose has been labile- so will continue with the current insulin dose * ESRD- continue Dialysis as per Nephrology. * HTN- blood pressure is stable
[2018-01-15] MEDS: Insulin Detemir 100 UNITS/ML 10 UNITS in Pre-Filled Syringe 1 EACH SC SCH (20:40)
[2018-01-16] MEDS: HumaLOG 300 UNITS/3 ML VIAL SC PRN ×2 (05:58→21:25)
[2018-01-16] MEDS: HYDROcodone/Acetaminophen 5/325 mg Tablet PO PRN ×3 (06:01→21:25)
[2018-01-16] MEDS: Cinacalcet HCl 30 MG TAB PO SCH (08:52)
[2018-01-16] MEDS: Sevelamer Carbonate 800 MG TAB PO SCH ×3 (08:54→17:25)
[2018-01-16] MEDS: Heparin 5,000 UNITS/ML VIAL SC SCH ×2 (08:56→21:26)
[2018-01-16] MEDS ORDERED: CEFAZOLIN 1 GM in Sodium Chloride 0.9% 100 ML IVPB SCH (09:00)
[2018-01-16] MEDS: Insulin Detemir 100 UNITS/ML 15 UNITS in Pre-Filled Syringe 1 EACH SC SCH (09:41)
--- NOTE | 2018-01-16 11:34 | PRG ---
DATE OF SERVICE: 01/16/2018 SUBJECTIVE: A 37-year-old gentleman being seen for end-stage renal disease. The patient denies any nausea, vomiting or chest pain. PHYSICAL EXAMINATION: GENERAL: Patient is awake, alert. VITAL SIGNS: Afebrile, pulse 65, breathing 16, blood pressure 144/84. HEAD/NECK: Normocephalic. Atraumatic. EYES: EOMI. No deformity. EARS: Clear. No ulcers. NOSE: Intact. No lesions. MOUTH: Clear. No discharge. THROAT: Clear. No exudate. LUNGS: Clear. No crackles. CARDIAC: S1, S2. No rub. ABDOMEN: Benign. BS+. GENITALIA/RECTUM: [place] absent. BACK/EXTREMITIES: Edema 0+ Ulcer- NEUROLOGICAL: Alert and motor intact. SKIN: Rash- Bruise- LYMPHATICS: Edema- Ulcer- LABORATORY DATA: Show hemoglobin 9.6. ASSESSMENT AND RECOMMENDATIONS: 1. Stage 6 chronic kidney disease, continue hemodialysis. 2. Hypertension, stable. 3. Anemia, stable. 4. Medications based on glomerular filtration rate are appropriate.
[2018-01-16] MEDS: CEFAZOLIN 1 GM, Syringe 2.5 ML in Sterile Water 7.5 ML SLOW IVP SCH (13:06)
--- NOTE | 2018-01-16 13:45 | PDOC.PN ---
- Subjective Encounter Start Date: 01/16/18 Encounter Start Time: 13:44 Subjective: cough, mild sob - Objective Resuscitation Status: Resuscitation Status FULL:Full Resuscitation MAR Reviewed: Yes Vital Signs & Weight: Vital Signs (12 hours) Temp Pulse Resp BP Pulse Ox 01/16/18 11:00 98.3 F 88 16 138/82 94 L 01/16/18 08:00 98.2 F 85 16 95 01/16/18 07:30 98.2 F 85 16 144/84 H 95 Weight Weight 154 lb 6 oz Most Recent Monitor Data Heart Rate from ECG 96 NIBP 167/87 NIBP BP-Mean 116 Respiration from ECG 16 SpO2 91 I&O: 01/15/18 01/16/18 01/17/18 06:59 06:59 06:59 Intake Total 610 640 Balance 610 640 Result Diagrams: 01/14/18 04:56 01/14/18 04:56 Additional Labs: Accuchecks 01/16/18 01/16/18 01/15/18 05:40 00:28 19:35 POC Glucose 387 H 397 H 361 H 01/15/18 16:41 POC Glucose 204 H Phys Exam - Physical Examination Neck: no JVD clear excpt scattered rhonchi Cardiovascular: RRR, no significant murmur Musculoskeletal: no edema Dx/Plan (1) Bacteremia due to Staphylococcus aureus Code(s): R78.81 - BACTEREMIA Status: Acute (2) Pneumonia Code(s): J18.9 - PNEUMONIA, UNSPECIFIED ORGANISM Status: Acute Qualifiers: Pneumonia type: due to methicillin-sensitive Staphylococcus aureus (MSSA) Laterality: bilateral Lung location: unspecified part of lung Qualified Code (s): J15.211 - Pneumonia due to Methicillin susceptible Staphylococcus aureus (3) Diabetes mellitus type 1 with complications Code(s): E10.8 - TYPE 1 DIABETES MELLITUS WITH UNSPECIFIED COMPLICATIONS Status: Chronic (4) ESRD (end stage renal disease) on dialysis Code(s): N18.6 - END STAGE RENAL DISEASE; Z99.2 - DEPENDENCE ON RENAL DIALYSIS Status: Chronic (5) Hypertension Code(s): I10 - ESSENTIAL (PRIMARY) HYPERTENSION Status: Chronic Qualifiers: Hypertension type: essential hypertension - Plan cont iv ancef, cipro -: HD per renal -: accu/ss/detemir -: discuss LUIS with ID * .
--- NOTE | 2018-01-16 16:27 | PRG ---
DATE OF SERVICE: 01/16/2018 SUBJECTIVE: Mr. Brush is afebrile. OBJECTIVE: VITAL SIGNS: Rates in the 80s, respiratory rate 16, oximetry is 94% to 95% on room air. GENERAL: He is in no distress. LUNGS: Clear. HEART: Regular rhythm. ABDOMEN: Soft. LABORATORY DATA: No lab other than glucoses. His glucose has actually been trending upward today avilez s been managed by the Hospitalist. IMPRESSION AND PLAN: Staph aureus bacteremia, presumably endocarditis versus a graft infection. I t hink he has to be treated as though he has a graft infection. He does continue to be medically stabl e. He remains on Ancef. He is still on Levaquin as well. We will continue to follow intermittently .
[2018-01-16] MEDS: Insulin Detemir 100 UNITS/ML 10 UNITS in Pre-Filled Syringe 1 EACH SC SCH (21:25)
[2018-01-17] MEDS: Sevelamer Carbonate 800 MG TAB PO SCH ×3 (09:20→16:45)
[2018-01-17] MEDS: Cinacalcet HCl 30 MG TAB PO SCH (09:21)
[2018-01-17] MEDS: Heparin 5,000 UNITS/ML VIAL SC SCH ×2 (09:22→20:02)
[2018-01-17] MEDS: Insulin Detemir 100 UNITS/ML 15 UNITS in Pre-Filled Syringe 1 EACH SC SCH (09:22)
--- NOTE | 2018-01-17 09:50 | PDOC.PN ---
- Subjective Encounter Start Date: 01/17/18 Encounter Start Time: 09:49 Subjective: feels well - Objective Resuscitation Status: Resuscitation Status FULL:Full Resuscitation MAR Reviewed: Yes Vital Signs & Weight: Vital Signs (12 hours) Temp Pulse Resp BP Pulse Ox 01/17/18 07:23 98.2 F 92 16 164/79 H 97 01/17/18 06:35 98.5 F 90 16 154/75 H 99 01/17/18 03:05 92 L Weight Weight 154 lb 6 oz Most Recent Monitor Data Heart Rate from ECG 96 NIBP 167/87 NIBP BP-Mean 116 Respiration from ECG 16 SpO2 91 I&O: 01/16/18 01/17/18 01/18/18 06:59 06:59 06:59 Intake Total 640 Balance 640 Result Diagrams: 01/14/18 04:56 01/14/18 04:56 Additional Labs: Accuchecks 01/17/18 01/16/18 01/16/18 05:18 19:16 16:02 POC Glucose 261 H 231 H 137 H 01/16/18 10:56 POC Glucose 163 H Radiology Reviewed by me: No (echo- normal LVEF, no vegetations) Phys Exam - Physical Examination Neck: no JVD Respiratory: clear to auscultation bilateral Cardiovascular: RRR, no significant murmur Gastrointestinal: soft, positive bowel sounds Musculoskeletal: no edema Dx/Plan (1) Bacteremia due to Staphylococcus aureus Code(s): R78.81 - BACTEREMIA Status: Acute (2) Pneumonia Code(s): J18.9 - PNEUMONIA, UNSPECIFIED ORGANISM Status: Acute Qualifiers: Pneumonia type: due to methicillin-sensitive Staphylococcus aureus (MSSA) Laterality: bilateral Lung location: unspecified part of lung Qualified Code (s): J15.211 - Pneumonia due to Methicillin susceptible Staphylococcus aureus (3) Diabetes mellitus type 1 with complications Code(s): E10.8 - TYPE 1 DIABETES MELLITUS WITH UNSPECIFIED COMPLICATIONS Status: Chronic (4) ESRD (end stage renal disease) on dialysis Code(s): N18.6 - END STAGE RENAL DISEASE; Z99.2 - DEPENDENCE ON RENAL DIALYSIS Status: Chronic (5) Hypertension Code(s): I10 - ESSENTIAL (PRIMARY) HYPERTENSION Status: Chronic Qualifiers: Hypertension type: essential hypertension - Plan cont current antibx -: cont HD -: cbc, bmp today -: discuss DC planning with ID, Renal * .
[2018-01-17 11:16] LABS: #Eosinphils 0.1 thou/uL (0.0-0.7); #Lymphocytes 1.2 thou/uL (1.20-3.40); #Monocytes 1.3 thou/uL (0.11-0.59); #Neutrophils 10.5 thou/uL (1.40-6.50); %Basophils 0.2 % (0.0-1.0); %Eosinophils 0.4 % (0.0-10.0); %Neutrophils 80.4 % (42.0-75.0); Hemoglobin 9.6 g/dL (14.0-18.0); Mean Corpuscular HGB CONC 31.5 g/dL (32.0-36.0); Mean Corpuscular Hemoglobin 29.1 pg (27.0-31.0); Mean Corpuscular Volume 92.4 fl (80.0-94.0); Mean Platelet Volume 10.6 fL (7.4-10.4); Platelet Count 151 thou/uL (130-400); RBC Distribution Width 14.7 % (11.5-14.5); Red Blood Cell (RBC) Count 3.28 mill/uL (4.70-6.10); White Blood Cell (WBC) Count 13.1 thou/uL (4.8-10.8)
[2018-01-17 11:53] LABS: Anion Gap 11 mmol/L (10-20); BUN (Urea Nitrogen) 43 mg/dL (8.9-20.6); Calc. Creatinine Clearance 14 mL/min (70-130); Calcium 8.2 mg/dL (7.8-10.44); Carbon Dioxide 29 mmol/L (22-29); Chloride 92 mmol/L (98-107); Estimated GFR-MDRD 11; Glucose 331 mg/dL (70-105); Potassium 4.4 mmol/L (3.5-5.1); Sodium 128 mmol/L (136-145)
--- NOTE | 2018-01-17 13:29 | PRG ---
DATE OF SERVICE: 01/17/2018 SUBJECTIVE: This is a 37-year-old gentleman being seen for end-stage renal disease. The patient den ies any nausea, vomiting or chest pain. PHYSICAL EXAMINATION: GENERAL: Patient is awake, alert. VITAL SIGNS: Afebrile, pulse 72, breathing at 16, blood pressure 154/75. GENERAL APPEARANCE AND MENTAL STATUS: Fair. HEAD/NECK: Normocephalic. Atraumatic. EYES: EOMI. No deformity. EARS: Clear. No ulcers. NOSE: Intact. No lesions. MOUTH: Clear. No discharge. THROAT: Clear. No exudate. LUNGS: Clear. No crackles. CARDIAC: S1, S2. No rub. ABDOMEN: Benign. BS+. GENITALIA/RECTUM: Clifton absent. BACK/EXTREMITIES: Edema 0+ Ulcer-. NEUROLOGICAL: Alert and motor intact. SKIN: Rash- Bruise- LYMPHATICS: Edema- Ulcer- LABORATORY DATA: Show hemoglobin 9.6. ASSESSMENT AND RECOMMENDATIONS: 1. Stage 6 chronic kidney disease. Continue hemodialysis. 2. Hypertension, stable. 3. Anemia, stable. 4. Medication based on glomerular filtration rate are appropriate.
[2018-01-17] MEDS: CEFAZOLIN 1 GM, Syringe 2.5 ML in Sterile Water 7.5 ML SLOW IVP SCH (16:46)
--- NOTE | 2018-01-17 16:52 | PDOC.EVN ---
Event Note - Event Note Event Note: WBC 36692, cont current antibx
[2018-01-17] MEDS: Insulin Detemir 100 UNITS/ML 10 UNITS in Pre-Filled Syringe 1 EACH SC SCH (20:01)
[2018-01-17] MEDS: HYDROcodone/Acetaminophen 5/325 mg Tablet PO PRN (20:02)
[2018-01-18] MEDS: HumaLOG 300 UNITS/3 ML VIAL SC PRN ×3 (05:48→20:02)
[2018-01-18] MEDS: Sevelamer Carbonate 800 MG TAB PO SCH ×3 (08:47→16:33)
[2018-01-18] MEDS: Insulin Detemir 100 UNITS/ML 15 UNITS in Pre-Filled Syringe 1 EACH SC SCH (08:48)
[2018-01-18] MEDS: Heparin 5,000 UNITS/ML VIAL SC SCH ×2 (08:48→20:01)
[2018-01-18] MEDS: Cinacalcet HCl 30 MG TAB PO SCH (08:48)
--- NOTE | 2018-01-18 09:57 | PRG ---
DATE OF SERVICE: 01/18/2018 SUBJECTIVE: This is a 37-year-old gentleman being seen for end-stage renal disease. The patient den ies any nausea, vomiting or chest pain. PHYSICAL EXAMINATION: GENERAL: Patient is awake, alert. VITAL SIGNS: Afebrile, pulse 89, breathing 16, blood pressure 144/77. OBJECTIVE: See above. Awake, alert, in no acute distress. GENERAL APPEARANCE AND MENTAL STATUS: Fair. HEAD/NECK: Normocephalic. Atraumatic. EYES: EOMI. No deformity. EARS: Clear. No ulcers. NOSE: Intact. No lesions. MOUTH: Clear. No discharge. THROAT: Clear. No exudate. LUNGS: Clear. No crackles. CARDIAC: S1, S2. No rub. ABDOMEN: Benign. BS+. GENITALIA/RECTUM: Clifton absent. BACK/EXTREMITIES: Edema 0+ Ulcer- NEUROLOGICAL: Alert and motor intact. SKIN: Rash- Bruise- LYMPHATICS: Edema- Ulcer- LABORATORY: Hemoglobin 9.6. ASSESSMENT AND RECOMMENDATIONS: 1. Stage 6 chronic kidney disease, continue hemodialysis. 2. Hypertension, stable. 3. Anemia, stable. 4. Medication based on glomerular filtration rate are appropriate.
[2018-01-18] MEDS: CEFAZOLIN 1 GM, Syringe 2.5 ML in Sterile Water 7.5 ML SLOW IVP SCH (12:18)
--- NOTE | 2018-01-18 15:47 | PDOC.PN ---
- Subjective Encounter Start Date: 01/18/18 Encounter Start Time: 15:44 Mr. Brush was seen today in follow-up. He does not have any complaints today. - Objective Resuscitation Status: Resuscitation Status FULL:Full Resuscitation MAR Reviewed: Yes Vital Signs & Weight: Vital Signs (12 hours) Temp Pulse Resp BP Pulse Ox 01/18/18 08:00 98.3 F 89 16 144/77 H 97 Weight Weight 154 lb 6 oz Most Recent Monitor Data Heart Rate from ECG 96 NIBP 167/87 NIBP BP-Mean 116 Respiration from ECG 16 SpO2 91 Result Diagrams: 01/17/18 10:30 01/17/18 10:30 Additional Labs: Accuchecks 01/18/18 01/18/18 01/17/18 11:35 05:33 19:58 POC Glucose 304 H 229 H 173 H 01/17/18 16:23 POC Glucose 142 H Phys Exam - Physical Examination HEENT: PERRLA Respiratory: no wheezing, no rales, no rhonchi, clear to auscultation bilateral Cardiovascular: RRR, no significant murmur Gastrointestinal: soft, non-tender, positive bowel sounds Musculoskeletal: no edema Dx/Plan (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 Code(s): E10.8 - TYPE 1 DIABETES MELLITUS WITH UNSPECIFIED COMPLICATIONS Status: Chronic (2) Depression Code(s): F32.9 - MAJOR DEPRESSIVE DISORDER, SINGLE EPISODE, UNSPECIFIED Status : Acute (3) Pneumonia Code(s): J18.9 - PNEUMONIA, UNSPECIFIED ORGANISM Status: Acute Qualifiers: Pneumonia type: due to methicillin-sensitive Staphylococcus aureus (MSSA) Laterality: bilateral Lung location: unspecified part of lung Qualified Code (s): J15.211 - Pneumonia due to Methicillin susceptible Staphylococcus aureus (4) ESRD (end stage renal disease) on dialysis Code(s): N18.6 - END STAGE RENAL DISEASE; Z99.2 - DEPENDENCE ON RENAL DIALYSIS Status: Chronic (5) Hyperkalemia Code(s): E87.5 - HYPERKALEMIA Status: Acute (6) Non-compliance with renal dialysis Code(s): Z91.15 - PATIENT'S NONCOMPLIANCE WITH RENAL DIALYSIS Status: Acute (7) Hypertension Code(s): I10 - ESSENTIAL (PRIMARY) HYPERTENSION Status: Chronic Qualifiers: Hypertension type: essential hypertension (8) Bacteremia due to Staphylococcus aureus Code(s): R78.81 - BACTEREMIA Status: Acute - Plan * MSSA sepsis- recommendations from Dr Lopez include continuing Ancef with Dialysis until 02/12, along with [id number] every other day. * DM- blood glucose is stable * Stable for discharge home.
[2018-01-18] MEDS: HYDROcodone/Acetaminophen 5/325 mg Tablet PO PRN (20:01)
[2018-01-18] MEDS: Insulin Detemir 100 UNITS/ML 10 UNITS in Pre-Filled Syringe 1 EACH SC SCH (20:41)
[2018-01-18] MEDS ORDERED: Loperamide HCl 2 MG CAP PO PRN (23:12)
[2018-01-19] MEDS: HumaLOG 300 UNITS/3 ML VIAL SC PRN (05:13)
--- NOTE | 2018-01-19 08:49 | PDOC.PN ---
- Subjective Encounter Start Date: 01/19/18 Encounter Start Time: 08:48 Mr. Brush was seen today in follow-up. He does not have any complaints. He feel better today. - Objective Resuscitation Status: Resuscitation Status FULL:Full Resuscitation MAR Reviewed: Yes Vital Signs & Weight: Weight Weight 154 lb 6 oz Most Recent Monitor Data Heart Rate from ECG 96 NIBP 167/87 NIBP BP-Mean 116 Respiration from ECG 16 SpO2 91 Result Diagrams: 01/17/18 10:30 01/17/18 10:30 Additional Labs: Accuchecks 01/19/18 01/18/18 01/18/18 04:53 19:56 16:25 POC Glucose 254 H 270 H 193 H 01/18/18 11:35 POC Glucose 304 H Phys Exam - Physical Examination HEENT: PERRLA Respiratory: no wheezing, no rales, no rhonchi, clear to auscultation bilateral Cardiovascular: RRR, no significant murmur, no rub Gastrointestinal: soft, non-tender, positive bowel sounds Musculoskeletal: no edema Dx/Plan (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 Code(s): E10.8 - TYPE 1 DIABETES MELLITUS WITH UNSPECIFIED COMPLICATIONS Status: Chronic (2) Depression Code(s): F32.9 - MAJOR DEPRESSIVE DISORDER, SINGLE EPISODE, UNSPECIFIED Status : Acute (3) Pneumonia Code(s): J18.9 - PNEUMONIA, UNSPECIFIED ORGANISM Status: Acute Qualifiers: Pneumonia type: due to methicillin-sensitive Staphylococcus aureus (MSSA) Laterality: bilateral Lung location: unspecified part of lung Qualified Code (s): J15.211 - Pneumonia due to Methicillin susceptible Staphylococcus aureus (4) ESRD (end stage renal disease) on dialysis Code(s): N18.6 - END STAGE RENAL DISEASE; Z99.2 - DEPENDENCE ON RENAL DIALYSIS Status: Chronic (5) Hyperkalemia Code(s): E87.5 - HYPERKALEMIA Status: Acute (6) Non-compliance with renal dialysis Code(s): Z91.15 - PATIENT'S NONCOMPLIANCE WITH RENAL DIALYSIS Status: Acute (7) Hypertension Code(s): I10 - ESSENTIAL (PRIMARY) HYPERTENSION Status: Chronic Qualifiers: Hypertension type: essential hypertension (8) Bacteremia due to Staphylococcus aureus Code(s): R78.81 - BACTEREMIA Status: Acute - Plan * Staph bacteremia- improved. * Stable for discharge home
[2018-01-19] MEDS: Heparin 5,000 UNITS/ML VIAL SC SCH (09:13)
[2018-01-19] MEDS: Sevelamer Carbonate 800 MG TAB PO SCH ×2 (09:13→12:28)
[2018-01-19] MEDS: Cinacalcet HCl 30 MG TAB PO SCH (09:13)
[2018-01-19] MEDS: Insulin Detemir 100 UNITS/ML 15 UNITS in Pre-Filled Syringe 1 EACH SC SCH (09:13)
[2018-01-19 09:36] VITALS: BP 141/76; TEMP 98.2
--- NOTE | 2018-01-19 10:44 | DIS ---
DATE OF ADMISSION: 01/09/2018 DATE OF DISCHARGE: 01/19/2018 DISCHARGE DISPOSITION: Home. Patient currently does not have a primary care physician. DISCHARGE DIAGNOSES: 1. Diabetic ketoacidosis, type 1, resolved. 2. Methicillin sensitive Staph sepsis. 3. Major depression. 4. End-stage renal disease on hemodialysis. 5. Peripheral vascular disease. 6. Hypertension. 7. Community-acquired pneumonia with sepsis. DISCHARGE MEDICATIONS: Include cefazolin 1 gram IV after dialysis until 02/12/2017, Levaquin 500 mg every other day until 02/12/2017, Renvela 800 mg 3 tabs 3 times a day, Zoloft 20 mg daily, Levemir 15 units subcu q.a.m., Apresoline 25 mg t.i.d., Sensipar 60 mg daily, amlodipine 10 mg daily, and Humal og 5 units t.i.d. with meals. PROCEDURES DONE DURING ADMISSION: The patient had a CT scan of the chest which demonstrated evidence for atypical infectious process which were reticular nodular opacities bilaterally and there is cavi tary lesions seen throughout the right lung. The patient had an echocardiogram showing moderate conc entric left ventricular hypertrophy. The ejection fraction was estimated at 50%-55%. There was no e vidence of mass or vegetation noted. CODE STATUS: FULL CODE. ALLERGIES: PENICILLIN. HOSPITAL COURSE: Mr. Brush is a pleasant 37-year-old gentleman who presented to the emergency room with complaints of not feeling well. He also had not been eating and not taking his medications and had said that he just wanted to "give up." His family urged him and finally convinced him to co me to the hospital where he was found to be in DKA. He was admitted to the ICU and this was treated and working up the DKA he had blood cultures done which grew Staph aureus. He was initially placed o n vancomycin for this. Infectious Disease consultation was obtained and it was found that he had cav itary lesions by CT, likely as a result of hematogenous spread of the Staph bacteria. He was evaluat ed for endocarditis and this was ruled out by echocardiogram. He was also seen by Pulmonology with monalisa davis to that the infectious process in the lungs and it was recommended that he undergo at least 4 weeks of IV vancomycin along with Levaquin with an end date of 02/12/2017. Also, since he was severe ly depressed on admission. He was seen by [facility] at the time of discharge and Referrals were made for him to obtain counseling in the outpatient setting. He would be able to go to [facility] well a [facility] and these phone numbers were given to the patient prior to discharge.
--- NOTE | 2018-01-19 12:00 | PRG ---
DATE OF SERVICE: 01/19/2018 SUBJECTIVE: This 37-year-old gentleman being seen for end-stage renal disease. The patient denies a ny nausea, vomiting or chest pain. PHYSICAL EXAMINATION: GENERAL: Patient is awake, alert. VITAL SIGNS: Afebrile, pulse 75, breathing 16, blood pressure 141/76. OBJECTIVE: See above. Awake, alert, in no acute distress. GENERAL APPEARANCE AND MENTAL STATUS: Fair. HEAD/NECK: Normocephalic. Atraumatic. EYES: EOMI. No deformity. EARS: Clear. No ulcers. NOSE: Intact. No lesions. MOUTH: Clear. No discharge. THROAT: Clear. No exudate. LUNGS: Clear. No crackles. CARDIAC: S1, S2. No rub. ABDOMEN: Benign. BS+. GENITALIA/RECTUM: Clifton absent. BACK/EXTREMITIES: Edema 0+ Ulcer- NEUROLOGICAL: Alert and motor intact. SKIN: Rash- Bruise- LYMPHATICS: Edema- Ulcer- LABORATORY: Hemoglobin 9.6. ASSESSMENT AND RECOMMENDATIONS: 1. Stage 6 chronic kidney disease, continue hemodialysis. 2. Hypertension. 3. Anemia, stable. 4. Medication based on glomerular filtration rate are appropriate. The patient should be discharged to the outpatient clinic.
[2018-01-19] MEDS ORDERED: CEFAZOLIN 1 GM, Syringe 2.5 ML in Sterile Water 7.5 ML SLOW IVP SCH (18:00)
--- NOTE | 2018-01-28 01:26 | EKG ---
Test Reason : Blood Pressure : / mmHG Vent. Rate : 106 BPM Atrial Rate : 106 BPM P-R Int : 158 ms QRS Dur : 122 ms QT Int : 356 ms P-R-T Axes : 069 -61 064 degrees QTc Int : 472 ms Sinus tachycardia Left axis deviation Non-specific intra-ventricular conduction delay Abnormal ECG Confirmed by JASSI DUMONT, HEIDY ([id number]), graphics editor VINI DE LA CRUZ ([id number]) on 01/28/2018 1:25:43 AM Referred By: Confirmed By:HEIDY KEENE MD
== END 2018-01-19 13:29 | disposition home or self-care (01) | DRG 871 ==
LOC: ERS 13:59 → CCU 20:13 → T4-A 01-10 23:00
PROVIDERS: ADMIT Internal Medicine; ATTEND Internal Medicine
PROC: 5A1D70Z Performance of Urinary Filtration, Intermittent, Less than 6 Hours Per Day (ICD-10-PCS; principal; 2018-01-09)
PROC: 5A1D70Z Performance of Urinary Filtration, Intermittent, Less than 6 Hours Per Day (ICD-10-PCS; 2018-01-12)
PROC: 5A1D70Z Performance of Urinary Filtration, Intermittent, Less than 6 Hours Per Day (ICD-10-PCS; 2018-01-15)
PROC: 5A1D70Z Performance of Urinary Filtration, Intermittent, Less than 6 Hours Per Day (ICD-10-PCS; 2018-01-17)
DX: A41.01 Sepsis due to Methicillin susceptible Staphylococcus aureus (principal); J15.211 Pneumonia due to Methicillin susceptible Staphylococcus aureus; E10.10 Type 1 diabetes mellitus with ketoacidosis without coma; R64 Cachexia; I12.0 Hypertensive chronic kidney disease with stage 5 chronic kidney disease or end stage renal disease; E10.22 Type 1 diabetes mellitus with diabetic chronic kidney disease; N18.6 End stage renal disease; E87.1 Hypo-osmolality and hyponatremia; E10.51 Type 1 diabetes mellitus with diabetic peripheral angiopathy without gangrene; E86.0 Dehydration; F32.9 Major depressive disorder, single episode, unspecified; E87.5 Hyperkalemia; Z91.15 Patient's noncompliance with renal dialysis; D63.1 Anemia in chronic kidney disease; Z89.511 Acquired absence of right leg below knee; F17.210 Nicotine dependence, cigarettes, uncomplicated; R60.9 Edema, unspecified; E88.09 Other disorders of plasma-protein metabolism, not elsewhere classified; Z99.2 Dependence on renal dialysis; Z68.21 Body mass index [BMI] 21.0-21.9, adult
CPT/HCPCS: 36415; 36416; 71045; 71250; 80048; 80053; 82010; 82330; 82803; 83605; 83735; 84100; 85007; 85025; 85027; 87040; 87077; 87149; 87186; 87340; 90935; 93005; 93306; 94640; 96361; 96365; 96366; 96375; 96376; 99406; A4216; G0257; J0690; J0692; J1644; J1815; J1956; J2405; J2765; J3370; J3486; J7050; J7611; J7620

== ENCOUNTER 2018-01-29 07:47 | Emergency (ER) | payer MEDICARE, MEDICAID ==
--- NOTE | 2018-01-29 08:17 | RAD ---
SINGLE VIEW CHEST: Date: 01/29/18 COMPARISON: 01/09/18. HISTORY: Aching chest pain. FINDINGS: Single view of the chest shows normal sized cardiomediastinal silhouette. There is an infiltrate in t he mid portion of the right lung. No pleural effusion is seen. Vascular stents are seen in the left a rm. IMPRESSION: Small right lung infiltrate. POS: [facility]
[2018-01-29 08:37] LABS: Hemoglobin 8.5 g/dL (14.0-18.0); Mean Corpuscular HGB CONC 32.3 g/dL (32.0-36.0); Mean Corpuscular Hemoglobin 29.7 pg (27.0-31.0); Mean Corpuscular Volume 91.8 fl (80.0-94.0); Mean Platelet Volume 9.9 fL (7.4-10.4); Platelet Count 216 thou/uL (130-400); RBC Distribution Width 14.8 % (11.5-14.5); Red Blood Cell (RBC) Count 2.86 mill/uL (4.70-6.10); White Blood Cell (WBC) Count 7.2 thou/uL (4.8-10.8)
[2018-01-29 08:55] LABS: Anion Gap 16 mmol/L (10-20); BUN (Urea Nitrogen) 31 mg/dL (8.9-20.6); Calc. Creatinine Clearance 0 mL/min (70-130); Calcium 9.4 mg/dL (7.8-10.44); Carbon Dioxide 26 mmol/L (22-29); Chloride 105 mmol/L (98-107); Estimated GFR-MDRD 11; Glucose 177 mg/dL (70-105); Potassium 3.9 mmol/L (3.5-5.1); Sodium 143 mmol/L (136-145)
[2018-01-29 09:01] LABS: Band 3 % (5-11); Lymphocytes 31 % (21-51); MDiff Complete? YES; Metamyelocyte 2 % (0-0); Monocytes 7 % (0-10); Neutrophil 57 % (42-75); PLT Morphology Comment Appears Adequate; Polychromasia SLIGHT = 2-3 cells (100X) (0-2/hpf)
== END 2018-01-29 08:36 | disposition home or self-care (01) ==
LOC: ERS 07:47
DX: J18.9 Pneumonia, unspecified organism (principal); E11.22 Type 2 diabetes mellitus with diabetic chronic kidney disease; I12.0 Hypertensive chronic kidney disease with stage 5 chronic kidney disease or end stage renal disease; N18.6 End stage renal disease; Z99.2 Dependence on renal dialysis; F17.210 Nicotine dependence, cigarettes, uncomplicated
CPT/HCPCS: 71045; 80048; 85025; J1956

== ENCOUNTER 2018-02-26 05:29 | Emergency (ER) | payer MEDICARE, MEDICAID ==
[2018-02-26] MEDS ORDERED: Acetaminophen 500 MG TAB ONE (05:52)
--- NOTE | 2018-02-26 08:27 | RAD ---
3 VIEWS SACRUM AND COCCYX: Date: 02/26/18 HISTORY: Fall. Trauma. Pain. FINDINGS: Sacral ala are preserved. No obvious fracture. Visualized bony pelvis is also intact. IMPRESSION: No fracture. POS: [facility]
== END 2018-02-26 07:40 | disposition home or self-care (01) ==
LOC: ERS 05:29
DX: S30.0XXA Contusion of lower back and pelvis, initial encounter (principal); E11.22 Type 2 diabetes mellitus with diabetic chronic kidney disease; I12.0 Hypertensive chronic kidney disease with stage 5 chronic kidney disease or end stage renal disease; N18.6 End stage renal disease; E78.00 Pure hypercholesterolemia, unspecified; F17.210 Nicotine dependence, cigarettes, uncomplicated; Z79.899 Other long term (current) drug therapy; Z99.2 Dependence on renal dialysis; Z71.6 Tobacco abuse counseling; Z79.4 Long term (current) use of insulin; V00.811A Fall from moving wheelchair (powered), initial encounter
CPT/HCPCS: 72220; 99406

== ENCOUNTER 2018-03-27 11:25 | Inpatient (IN) | payer MEDICARE, MEDICAID ==
[~2018-03-27 11:25] MED LIST: Heparin 10,000 UNITS/ 10 ML VIAL ONE
[2018-03-27 12:24] LABS: ALT (SGPT) 17 U/L (8-55); AST (SGOT) 27 U/L (5-34); Albumin 3.8 g/dL (3.5-5.0); Alkaline Phosphatase 180 U/L (40-150); Anion Gap 24 mmol/L (10-20); BUN (Urea Nitrogen) 100 mg/dL (8.9-20.6); Bilirubin, Total 0.8 mg/dL (0.2-1.2); Calc. Creatinine Clearance 0 mL/min (70-130); Calcium 8.6 mg/dL (7.8-10.44); Carbon Dioxide 17 mmol/L (22-29); Chloride 87 mmol/L (98-107); Estimated GFR-MDRD 6; Globulin 3.7 g/dL (2.4-3.5); Protein, Total 7.5 g/dL (6.0-8.3); Sodium 120 mmol/L (136-145)
[2018-03-27 12:31] LABS: Glucose 1150 mg/dL (70-105); Potassium 7.6 mmol/L (3.5-5.1)
[2018-03-27] MEDS ORDERED: Insulin Regular 300 UNITS/3 ML VIAL ONE (12:59)
[2018-03-27] MEDS ORDERED: Sodium Bicarb 50 MEQ/50 ML Abboject 8.4% SYRINGE ONE ×2 (13:00→13:13)
[2018-03-27] MEDS ORDERED: Calcium Chloride 1 GM/10 ML Abboject SYRINGE ONE (13:01)
--- NOTE | 2018-03-27 13:13 | CON ---
DATE OF CONSULTATION: 03/27/2018 REASON FOR CONSULTATION: Hyperkalemia. HISTORY OF PRESENT ILLNESS: This is a very pleasant 37-year-old gentleman who missed dialysis yester day, presented to the emergency room with weakness. The patient was noted to have a potassium of mor e than 7, so I was consulted. The patient has a history of noncompliance and has a habit of missing dialysis periodically. The patient did not call the dialysis center to be rescheduled. The patient denies any nausea, vomiting, chest pain or headache, numbness, tingling. The patient does complain o f weakness. PAST MEDICAL HISTORY: Diabetes mellitus, history of peripheral vascular disease, history of multiple amputations, tunneled dialysis catheter, right below knee amputation, history of noncompliance, hist ory of depression. HOME MEDICATIONS: List reviewed. HOSPITAL MEDICATIONS: Reviewed. ALLERGIES: Reviewed. REVIEW OF SYSTEMS: Fifteen point review of systems performed and negative, except all noted. GENERAL: Weakness- HEAD: Headache- NECK: No swelling or lumps. NOSE: No epistaxis or discharge. EYES: No diplopia or pain. 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 NEUROPSYCHIATIC SYSTEMS: No suicidal ideation. No ideation. SKIN: Denies any rash or ulcer. CONSTITUTIONAL: No fever or chills. FAMILY HISTORY: Negative for ESRD. PHYSICAL EXAMINATION: GENERAL: Patient is awake, alert. VITAL SIGNS: Afebrile, pulse 75, breathing 16, blood pressure 160/75. OBJECTIVE: See above. Awake, alert, in no acute distress. GENERAL APPEARANCE AND MENTAL STATUS: Fair. HEAD/NECK: Normocephalic. Atraumatic. EYES: EOMI. No deformity. EARS: Clear. No ulcers. NOSE: Intact. No lesions. MOUTH: Clear. No discharge. THROAT: Clear. No exudate. LUNGS: Clear. No crackles. CARDIAC: S1, S2. No rub. ABDOMEN: Benign. BS+. GENITALIA/RECTUM: Clifton absent. BACK/EXTREMITIES: Edema 0+ Ulcer- NEUROLOGICAL: Alert and motor intact. SKIN: Rash- Bruise- LYMPHATICS: Edema- Ulcer- LABORATORY: Potassium 7.6, creatinine 10.8. ASSESSMENT AND RECOMMENDATIONS: 1. End-stage renal disease. We will plan urgent dialysis. 2. Hyperkalemia, plan dialysis. 3. Metabolic acidosis. Plan dialysis. 4. Anemia, stable. 5. Medication based on glomerular filtration rate are appropriate. 6. Uncontrolled diabetes, management per primary team. Overall, prognosis is extremely poor.
[2018-03-27 13:17] LABS: #Lymphocytes 1.4 thou/uL (1.20-3.40); #Monocytes 0.4 thou/uL (0.11-0.59); #Neutrophils 2.5 thou/uL (1.40-6.50); %Basophils 0.4 % (0.0-1.0); %Lymphocytes 32.2 % (21.0-51.0); %Monocytes 9.2 % (0.0-10.0); %Neutrophils 57.1 % (42.0-75.0); Hemoglobin 13.6 g/dL (14.0-18.0); Mean Corpuscular HGB CONC 32.1 g/dL (32.0-36.0); Mean Corpuscular Hemoglobin 28.8 pg (27.0-31.0); Mean Corpuscular Volume 89.7 fl (80.0-94.0); Mean Platelet Volume 11.2 fL (7.4-10.4); Platelet Count 105 thou/uL (130-400); RBC Distribution Width 15.8 % (11.5-14.5); Red Blood Cell (RBC) Count 4.72 mill/uL (4.70-6.10); White Blood Cell (WBC) Count 4.3 thou/uL (4.8-10.8)
[2018-03-27 13:26] LABS: PLT Morphology Comment Appears Decreased
[2018-03-27 13:39] LABS: Magnesium 2.7 mg/dL (1.6-2.6); Phosphorus 7.8 mg/dL (2.3-4.7)
--- NOTE | 2018-03-27 13:39 | RAD ---
PORTABLE CHEST ONE VIEW: 03/27/2018 12:02 p.m. HISTORY: Weakness. COMPARISON: 01/29/2018 FINDINGS: The heart size is normal. The left lung is clear. There are residual patchy infiltrates in the righ t mid lung. No pneumothoraces or pleural effusions are seen. Vascular stents in the left arm are ag ain noted. IMPRESSION: Interval improvement in right sided lung infiltrates since 01/29/2018 with minimal residual density. Clinical correlation and follow-up chest radiographs are recommended. POS: [facility]
--- NOTE | 2018-03-27 15:11 | PDOC.FPRHP ---
Addendum entered and electronically signed by Facundo Sanderson MD 03/27/18 16:43: Vital sign at ER: 163/98, Pulse 93, Resp 18, Temp 98, O2 98% on RA Social Hx: Endorse tobacco use 1/2 pack a day, PCP and marijuana use Surgery: Right BKA, left AV fistula in arm PMH: Type 1 diabetes, HLD not currently treated with last LDL 106, HTN, ESRD Fhx: Deny heart issues. Original Note: - History of Present Illness Chief Complaint: Dizziness History of Present Illness: 37M presents for dizziness of 1 day. He has PMH of ESRD, DM1 uncontrolled, HTN, and depression. His issue started today. He stated that he missed dialysis yesterday. He endorse taking his insulin appropriately, but does not know how much his dosage is. His mother administer the medication. He says that his glucose read "High" on his glucometer. He states he had been in his usual state of health with exception of using PCP in the past several day and having loose stools. ED Course: In ED, he received 2 amp of bicarb, 100 mg CaCl, 10 U of novolin. Nephro was consulted from ED and agreed to urgent dialysis. - Allergies/Adverse Reactions Allergies Allergy/AdvReac Type Severity Reaction Status Date / Time Penicillins Allergy Unknown Verified 03/03/17 13:22 - Home Medications Medication Instructions Recorded Confirmed Type Sevelamer Carbonate [Renvela] 3 tab PO TID-WM 09/08/15 03/27/18 History HumaLOG [HumaLOG Vial] 5 unit SC TID- PRN 09/25/15 03/27/18 History Amlodipine Besylate [amLODIPine 10 mg PO DAILY 09/02/16 03/27/18 History Besylate] Cinacalcet HCl [Sensipar] 60 mg PO DAILY 09/02/16 03/27/18 History hydrALAZINE [Apresoline] 25 mg PO TID 09/02/16 03/27/18 History Sertraline HCl 25 mg PO DAILY 03/03/17 03/27/18 History Insulin Detemir 100 UNITS/ML 15 units SC QAM #0 vial 01/18/18 03/27/18 Rx [Levemir] Comments: Review of PCP records shows additional medications - Hydralazine HCL 25 mg once daily (Entered 2014, no RX since) - Enalapril 25 mg BID (Entered 2014, no RX since) - Lantus 20 U BID - Amlodipine 10 mg QD - History PMHx: PSHx: FHx: Social: - Review of Systems General: reports: fatigue, other (Dizziness, somnolence). denies: fever/chills , weight/appetite/sleep changes Eyes: denies: vision changes ENT: denies: nasal congestion Respiratory: denies: shortness of breath Cardiovascular: denies: chest pain Gastrointestinal: reports: diarrhea. denies: vomiting, abdominal pain Skin: denies: rashes Musculoskeletal: denies: pain Neurological: reports: other (Somnolence, dizziness) Psychological: reports: depression - Vital signs BP: [] HR: [] RR: [] Tmax: [] Pox: []% on [] Wt: [] - Physical Exam Constitutional: other (Somnolent but arousable, grossl oriented) HEENT: normocephalic and atraumatic, conjunctiva clear, no scleral icterus, grossly normal hearing, MMM Heart: RRR, normal S1/S2, no murmurs/rubs/gallops Lungs: CTAB, no respiratory distress Abdomen: soft, non-tender -Musculoskeletal: Right BKA Neurological: no focal deficit Skin: no jaundice Heme/Lymphatic: no unusual bruising or bleeding Psychiatric: intact recent and remote memory FMR H&P: Results - Labs Result Diagrams: 03/28/18 03:39 03/28/18 06:29 Lab results: WBC 4.3 thou/uL (4.8-10.8) L 03/27/18 13:03 Hgb 13.6 g/dL (14.0-18.0) L 03/27/18 13:03 Hct 42.4 % (42.0-52.0) 03/27/18 13:03 MCV 89.7 fl (80.0-94.0) 03/27/18 13:03 Plt Count 105 thou/uL (130-400) L 03/27/18 13:03 Neutrophils % 57.1 % (42.0-75.0) 03/27/18 13:03 Sodium 120 mmol/L (136-145) L 03/27/18 11:40 Potassium 7.6 mmol/L (3.5-5.1) H* 03/27/18 11:40 Chloride 87 mmol/L (98-107) L 03/27/18 11:40 Carbon Dioxide 17 mmol/L (22-29) L 03/27/18 11:40 BUN 100 mg/dL (8.9-20.6) H 03/27/18 11:40 Creatinine 10.88 mg/dL (0.6-1.3) H 03/27/18 11:40 Glucose 1150 mg/dL (70-105) H* 03/27/18 11:40 Calcium 8.6 mg/dL (7.8-10.44) 03/27/18 11:40 Total Bilirubin 0.8 mg/dL (0.2-1.2) 03/27/18 11:40 AST 27 U/L (5-34) 03/27/18 11:40 ALT 17 U/L (8-55) 03/27/18 11:40 Alkaline Phosphatase 180 U/L (40-150) H 03/27/18 11:40 B-Natriuretic Peptide 477.3 pg/mL (0-100) H 03/27/18 11:40 Serum Total Protein 7.5 g/dL (6.0-8.3) 03/27/18 11:40 Albumin 3.8 g/dL (3.5-5.0) 03/27/18 11:40 Lipase 80 U/L (8-78) H 03/27/18 13:03 Additional comment: Anion gap of 16 - EKG Interpretation EKG: Reviewed by me. Possible peak t wave. No obvious acute ST chagnes. FMR H&P: A/P - Problem List (1) Type 1 diabetes mellitus with hyperosmolarity without nonketotic hyperglycemic hyperosmolar coma Current Visit: Yes Status: Acute Priority: High Code(s): E10.69 - TYPE 1 DIABETES MELLITUS WITH OTHER SPECIFIED COMPLICATION; E10.65 - TYPE 1 DIABETES MELLITUS WITH HYPERGLYCEMIA Assessment and Plan: Lab value and history likely represent HHS with elevated glucose over 1000, no gap and minimally elevated b-hydroxy. Plan, start dialysis, remeasure glucose, and then start patient on insulin drip base on glucose. Will add K+ as needed, though potassium is elevated at this time. Start home lantus. (2) Elevated brain natriuretic peptide (BNP) level Current Visit: Yes Status: Acute Code(s): R79.89 - OTHER SPECIFIED ABNORMAL FINDINGS OF BLOOD CHEMISTRY Assessment and Plan: Hx of CHF in chart, but echo this year showed preserved EF and did not comment on diastolic dysfunction. Did note left sided hypertrophy. BNP likely reflect missed dialysis. Will monitor patient's clinical status for overload. Patient going to dialysis. (3) Pulmonary infiltrate in right lung on chest x-ray Current Visit: Yes Status: Acute Code(s): R91.8 - OTHER NONSPECIFIC ABNORMAL FINDING OF LUNG FIELD Assessment and Plan: This appear to be a stable issue from 2 months prior. Not symptomatic at this time. After dialysis, consider a repeat cxr after patient gets off excess fluid. (4) Diarrhea Current Visit: Yes Status: Acute Code(s): R19.7 - DIARRHEA, UNSPECIFIED Assessment and Plan: Patient goes to dialysis center, higher risk for c. diff. Plan, obtain c. diff culture. (5) Hyperkalemia Current Visit: Yes Status: Acute Priority: High Code(s): E87.5 - HYPERKALEMIA Assessment and Plan: Elevated K+. Patient going for urgent dialysis. Has received CaCL When patient returns, recheck potassium, correct as needed. (6) Diabetes mellitus type 1 with complications Current Visit: Yes Status: Chronic Priority: High Code(s): E10.8 - TYPE 1 DIABETES MELLITUS WITH UNSPECIFIED COMPLICATIONS Assessment and Plan: Will start on home dosage along with insulin drip as needed. (7) ESRD (end stage renal disease) on dialysis Current Visit: Yes Status: Chronic Code(s): N18.6 - END STAGE RENAL DISEASE ; Z99.2 - DEPENDENCE ON RENAL DIALYSIS Assessment and Plan: ESRD patient who missed dialysis. Nephro consulted. Plan for urgent dialysis secondary to elevated K+ (8) Hypertension Current Visit: Yes Status: Chronic Code(s): I10 - ESSENTIAL (PRIMARY) HYPERTENSION Qualifiers: Hypertension type: essential hypertension Qualified Code(s): I10 - Essential (primary) hypertension Assessment and Plan: Hypertensive urgency with dizziness. At this time, elevated BP may be due to missed dialysis. Will recheck after dialysis. Does not appear patient took HTN medication recently. Will likely start patient on chronic HTN meds when condition stable. (9) Normocytic anemia, not due to blood loss Current Visit: Yes Status: Acute Priority: Low Code(s): D64.9 - ANEMIA, UNSPECIFIED Assessment and Plan: Chronic issue and actually above his usual baseline. Will monitor. Etiology likely from ESRD. (10) Polysubstance abuse Current Visit: Yes Status: Suspected Priority: Low Code(s): F19.10 - OTHER PSYCHOACTIVE SUBSTANCE ABUSE, UNCOMPLICATED Assessment and Plan: Patient was somnolent in room. Consider drug use in patient with known hx of polysubstance abuse Obtain drug screen if possible. Due to dialysis, may not be feasible. (11) Depression Current Visit: No Status: Chronic Priority: Low Code(s): F32.9 - MAJOR DEPRESSIVE DISORDER, SINGLE EPISODE, UNSPECIFIED Qualifiers: Depression Type: major depressive disorder Active/Remission status: currently active Psychotic features: without psychotic features Assessment and Plan: Continue patient sertraline. Did not express suicidal ideation. (12) Elevated alkaline phosphatase level Current Visit: Yes Status: Acute Priority: Low Assessment and Plan: Noted to have isolated elevated alk phos. At this time, not having abd pain, or other elevated liver enzyme. Plan, at this time, recommend outpatient follow up, but may consider getting GGT or US to help rule out liver abnormaliteis. FMR H&P: Upper Level - Plan Date/Time: 03/27/18 1501 I, [], have evaluated this patient and agree with findings/plan as outlined by director internal control resident. Pertinent changes/additions are listed here. Attending Addendum - Attending Addendum Date/Time: 03/27/18 1700 I personally evaluated the patient and discussed the management with Dr. Sanderson I agree with the History, Examination, Assessment and Plan documented above with any addition or exceptions noted below. Sent for emergent HD. Patient with evidence of progressive DKA. Sq insulin bolus given with q 2 hour accuchecks. Repeat labs after HD including ketones. Restart home insulin if corrected. Monitor in IMCU overnight. Simone
[2018-03-27 16:03] LABS: HBSAg Index 0.25 S/CO (0-0.99); Hep B Surf Ag Non-Reactive S/CO (NonReactive)
[2018-03-27] MEDS ORDERED: HumaLOG 300 UNITS/3 ML VIAL SC PRN (16:30)
[2018-03-27] MEDS ORDERED: Dextrose 5% in Water 1,000 ML IV PRN ×2 (16:30→21:45)
[2018-03-27] MEDS ORDERED: Dextrose 50% Abboject 50 ML SYRINGE SLOW IVP PRN ×2 (16:30→21:45)
[2018-03-27] MEDS ORDERED: Ondansetron ODT 4 MG TAB PO PRN (16:34)
[2018-03-27] MEDS ORDERED: HumaLOG 300 UNITS/3 ML VIAL SC SCH (17:00)
[2018-03-27] MEDS ORDERED: Sevelamer Carbonate 800 MG TAB PO SCH (17:00)
[2018-03-27] MEDS ORDERED: Acetaminophen 325 MG TAB PO PRN (18:26)
[2018-03-27] MEDS ORDERED: Ondansetron PF 4 MG/2 ML Vial IVP PRN (18:26)
[2018-03-27] MEDS ORDERED: Ondansetron ODT 4 MG TAB SL PRN (18:26)
[2018-03-27 18:54] LABS: HIV (1/2) Antibody/Antigen Non-Reactive (NonReactive); HIV 1/2 INDEX 0.14 S/CO (<1.00); Hep C IgG Ab Non-Reactive (NonReactive); Hep C Index 0.08 S/CO (0-0.79)
[2018-03-27] MEDS ORDERED: Insulin Glargine 20 UNITS in Pre-Filled Syringe 1 EACH SC SCH ×2 (21:00→22:00)
[2018-03-27] MEDS ORDERED: Heparin 5,000 UNITS/ML VIAL SC SCH (21:00)
[2018-03-27 21:30] LABS: ALT (SGPT) 15 U/L (8-55); AST (SGOT) 20 U/L (5-34); Albumin 4.1 g/dL (3.5-5.0); Alkaline Phosphatase 190 U/L (40-150); Anion Gap 15 mmol/L (10-20); BUN (Urea Nitrogen) 22 mg/dL (8.9-20.6); Bilirubin, Total 1.2 mg/dL (0.2-1.2); Calc. Creatinine Clearance 0 mL/min (70-130); Calcium 9.5 mg/dL (7.8-10.44); Carbon Dioxide 27 mmol/L (22-29); Chloride 96 mmol/L (98-107); Estimated GFR-MDRD 22; Globulin 4.2 g/dL (2.4-3.5); Glucose 215 mg/dL (70-105); Potassium 3.4 mmol/L (3.5-5.1); Protein, Total 8.3 g/dL (6.0-8.3); Sodium 135 mmol/L (136-145)
[2018-03-27] MEDS: HumaLOG 300 UNITS/3 ML VIAL SC PRN (22:05)
[2018-03-27 22:29] VITALS: BMI 19.7
[2018-03-28] MEDS: HumaLOG 300 UNITS/3 ML VIAL SC PRN ×2 (00:13→10:21)
[2018-03-28 02:39] LABS: Anion Gap 19 mmol/L (10-20); BUN (Urea Nitrogen) 34 mg/dL (8.9-20.6); Calc. Creatinine Clearance 16 mL/min (70-130); Calcium 9.6 mg/dL (7.8-10.44); Carbon Dioxide 26 mmol/L (22-29); Chloride 96 mmol/L (98-107); Estimated GFR-MDRD 13; Glucose 308 mg/dL (70-105); Potassium 4.4 mmol/L (3.5-5.1); Sodium 137 mmol/L (136-145)
[2018-03-28 03:56] LABS: #Basophils 0.1 thou/uL (0.0-0.2); #Eosinphils 0.2 thou/uL (0.0-0.7); #Lymphocytes 1.5 thou/uL (1.20-3.40); #Monocytes 0.5 thou/uL (0.11-0.59); #Neutrophils 1.8 thou/uL (1.40-6.50); %Basophils 2.6 % (0.0-1.0); %Eosinophils 4.9 % (0.0-10.0); %Lymphocytes 36.2 % (21.0-51.0); %Monocytes 12.7 % (0.0-10.0); %Neutrophils 43.6 % (42.0-75.0); Hemoglobin 13.4 g/dL (14.0-18.0); Mean Corpuscular HGB CONC 34.4 g/dL (32.0-36.0); Mean Corpuscular Hemoglobin 29.3 pg (27.0-31.0); Mean Corpuscular Volume 85.3 fl (80.0-94.0); Mean Platelet Volume 10.5 fL (7.4-10.4); Platelet Count 104 thou/uL (130-400); RBC Distribution Width 15.9 % (11.5-14.5); Red Blood Cell (RBC) Count 4.58 mill/uL (4.70-6.10); White Blood Cell (WBC) Count 4.1 thou/uL (4.8-10.8)
[2018-03-28 04:18] LABS: ALT (SGPT) 12 U/L (8-55); AST (SGOT) 18 U/L (5-34); Albumin 3.5 g/dL (3.5-5.0); Alkaline Phosphatase 145 U/L (40-150); Anion Gap 16 mmol/L (10-20); BUN (Urea Nitrogen) 35 mg/dL (8.9-20.6); Bilirubin, Total 0.9 mg/dL (0.2-1.2); Calc. Creatinine Clearance 15 mL/min (70-130); Calcium 9.4 mg/dL (7.8-10.44); Carbon Dioxide 26 mmol/L (22-29); Chloride 98 mmol/L (98-107); Estimated GFR-MDRD 13; Globulin 3.5 g/dL (2.4-3.5); Glucose 250 mg/dL (70-105); Potassium 4.4 mmol/L (3.5-5.1); Sodium 136 mmol/L (136-145)
[2018-03-28 06:59] LABS: Anion Gap 15 mmol/L (10-20); BUN (Urea Nitrogen) 36 mg/dL (8.9-20.6); Calc. Creatinine Clearance 15 mL/min (70-130); Calcium 9.5 mg/dL (7.8-10.44); Carbon Dioxide 27 mmol/L (22-29); Chloride 100 mmol/L (98-107); Estimated GFR-MDRD 12; Glucose 158 mg/dL (70-105); Potassium 4.3 mmol/L (3.5-5.1); Sodium 138 mmol/L (136-145)
--- NOTE | 2018-03-28 07:56 | RAD ---
PORTABLE CHEST ONE VIEW: 03/28/2018 4:52 a.m. HISTORY: Right lung infiltrate followup. COMPARISON: Exam from the previous day. FINDINGS: Mild residual infiltrate in the right lower lung is again seen since 01/29/2018. Increased density i s noted in the left mid lung, which is new since the previous day's exam. It cannot be said with cer tainty if this is due to an artifact or pathology. Dedicated PA and lateral views of the chest shoul d be obtained. POS: URIAH
[2018-03-28] MEDS ORDERED: HumaLOG 300 UNITS/3 ML VIAL SC SCH ×3 (08:00→17:00)
[2018-03-28] MEDS ORDERED: Cinacalcet HCl 30 MG TAB PO SCH ×2 (09:00→17:00)
[2018-03-28] MEDS ORDERED: Insulin Glargine 20 UNITS in Pre-Filled Syringe 1 EACH SC SCH ×2 (09:00→21:00)
--- NOTE | 2018-03-28 09:52 | CON ---
DATE OF CONSULTATION: 03/28/2018 SERVICE: Pulmonary Medicine REASON FOR CONSULTATION: ICU patient. HISTORY OF PRESENT ILLNESS: The patient is a 37-year-old male with past medical history significant for end-stage renal disease secondary to type 1 diabetes mellitus. He was in his usual state of health until he started having some dizziness. This prompted him to miss some dialysis. He came in with a potassium of 8 and his blood sugars were quite elevated. He did not have a significant anion gap metabolic acidosis. Overnight, he was initiated on insulin. His blood sugar is under better control. His potassium is now much improved. He denies any current chest pain, nausea, vomiting, fevers or chills. PAST MEDICAL HISTORY: 1. Type 1 diabetes mellitus. 2. End-stage renal disease. 3. Hypertension. 4. Major depressive disorder. PAST SURGICAL HISTORY: Left AV fistula in the arm, right below-knee amputation. SOCIAL HISTORY: He uses half pack of cigarettes on a daily basis. He uses PCP and marijuana occasionally. He does endorse a significant alcohol use. He has no exposure to chemicals, dust, asbestos or tuberculosis. FAMILY HISTORY: Noncontributory. ALLERGIES: PENICILLIN. MEDICATIONS: List of his inpatient medications were reviewed and modified. REVIEW OF SYSTEMS: General, head, ears, eyes, nose, throat, cardiovascular, respiratory, musculoskeletal, neurologic, and skin is negative except as mentioned in the HPI. PHYSICAL EXAMINATION: VITAL SIGNS: Afebrile, pulse is 96, blood pressure 146/83, respirations 18, saturation 96% on room air. GENERAL: The patient is awake, alert, in no apparent distress. LUNGS: Excellent air entry. There is no prolonged expiratory phase, wheezing, rhonchi, or crackles present. HEART: Normal rate, regular. ABDOMEN: Soft, nontender, nondistended. Bowel sounds are positive. MUSCULOSKELETAL: No cyanosis or clubbing. There is no pitting in the bilateral lower extremities. NEUROLOGIC: Grossly nonfocal. LABORATORY DATA: WBC 4.1, hemoglobin 13.4, platelets 104,000. Glucose was originally above 1100, creatinine 6.22, improved with dialysis overnight, potassium 4.3, down from 7.6. Liver function studies are essentially unremarkable. Beta hydroxybutyric acid is minimally elevated. HIV, hepatitis C are nonreactive. IMAGING: Chest x-ray demonstrates no acute cardiopulmonary abnormality. ASSESSMENT: 1. Diabetes mellitus, type 1. 2. End-stage renal disease. 3. Hyperkalemia. 4. Pulmonary infiltrate. PLAN: The patient is stable for transition out of the IMCU. He can go to the medical unit. Outside of this area, he has no further requirements for inpatient Pulmonary or Critical Care opinion and I will sign off. Please call with additional questions or concerns moving forward. 70 minutes have been devoted to this patient in various activities. I personally reviewed all imaging studies and laboratory data noted within this document. For fifty percent of this time, I was interacting with the patient at the bedside or coordinating care with the care team. For the remainder of the time I was immediately available to the patient in the hospital unit. CHESTER
[2018-03-28 10:35] LABS: Base Excess-Venous -5.2 mmol/L (0 (+/- 2.5)); Bicarbonate (HCO3v) 22.2 mmol/L (1.0-85.0); CO2 Tension (PvCO2) 49.2 mmHg (41.0-51.0); O2 Tension (PvO2) 53.3 mmHg (35.0-45.0); pH (Venous) 7.263 (7.35-7.45); vO2 Saturation-calc 81.9 % (94-98)
[2018-03-28 10:36] LABS: Calcium, Ionized 1.02 mmol/L (1.12-1.32); Potassium 7.2 mmol/L (3.4-4.7); T. Carbon Dioxide 23.8 mmol/L (1.0-85.0)
--- NOTE | 2018-03-28 11:33 | PDOC.FM ---
- Subjective Subjective: Patient found in bed. He denies dizziness, pain, fever. - Objective MAR Reviewed: Yes Vital Signs & Weight: Vital Signs (12 hours) Temp Pulse Resp BP Pulse Ox 03/28/18 07:55 98.6 F 96 18 98 03/28/18 07:22 98.6 F 96 18 146/83 H 96 03/28/18 06:16 83 18 152/90 H 96 03/28/18 03:56 97.3 F L 79 17 146/85 H 97 03/28/18 02:01 83 18 148/69 H 97 03/28/18 00:03 97.5 F L 87 18 139/81 97 Weight Weight 63.163 kg I&O: 03/27/18 03/28/18 03/29/18 06:59 06:59 06:59 Intake Total 230 Output Total 3000 Balance -2770 Result Diagrams: 03/28/18 03:39 03/28/18 06:29 <Facundo Sanderson M - Last Filed: 03/28/18 11:31> - Objective Vital Signs & Weight: Vital Signs (12 hours) Temp Pulse Resp BP Pulse Ox 03/28/18 07:55 98.6 F 96 18 98 03/28/18 07:22 98.6 F 96 18 146/83 H 96 03/28/18 06:16 83 18 152/90 H 96 03/28/18 03:56 97.3 F L 79 17 146/85 H 97 Weight Weight 63.163 kg I&O: 03/27/18 03/28/18 03/29/18 06:59 06:59 06:59 Intake Total 230 Output Total 3000 Balance -2770 Result Diagrams: 03/28/18 03:39 03/28/18 06:29 <Efraín Mckinley R - Last Filed: 03/28/18 14:34> Phys Exam - Physical Examination Constitutional: NAD HEENT: moist MMs Neck: no nodes, supple, full ROM Respiratory: no wheezing, no rales, no rhonchi Cardiovascular: RRR, no significant murmur Gastrointestinal: soft Musculoskeletal: no edema Neurological: moves all 4 limbs Right BKA Psychiatric: normal affect Skin: no rash <Facundo Sanderson M - Last Filed: 03/28/18 11:31> Dx/Plan (1) Type 1 diabetes mellitus with hyperosmolarity without nonketotic hyperglycemic hyperosmolar coma Code(s): E10.69 - TYPE 1 DIABETES MELLITUS WITH OTHER SPECIFIED COMPLICATION; E10.65 - TYPE 1 DIABETES MELLITUS WITH HYPERGLYCEMIA Status: Acute Plan: Resolved issue, glucose back in appropriate range, plan to continue with home insulin at this time. (2) Elevated brain natriuretic peptide (BNP) level Code(s): R79.89 - OTHER SPECIFIED ABNORMAL FINDINGS OF BLOOD CHEMISTRY Status : Acute Plan: Likely was from missed dialysis. Consider resolved at this time. (3) Pulmonary infiltrate in right lung on chest x-ray Code(s): R91.8 - OTHER NONSPECIFIC ABNORMAL FINDING OF LUNG FIELD Status: Acute (4) Diarrhea Code(s): R19.7 - DIARRHEA, UNSPECIFIED Status: Acute Plan: Diarrhea has resolved. Unable to collect stool sample so far. (5) Hyperkalemia Code(s): E87.5 - HYPERKALEMIA Status: Acute Plan: Resolved issue after dialysis. (6) Diabetes mellitus type 1 with complications Code(s): E10.8 - TYPE 1 DIABETES MELLITUS WITH UNSPECIFIED COMPLICATIONS Status: Chronic Plan: Counseling provided to patient on appropriate dosage of insulin at home and he is to follow up with pcp. (7) ESRD (end stage renal disease) on dialysis Code(s): N18.6 - END STAGE RENAL DISEASE; Z99.2 - DEPENDENCE ON RENAL DIALYSIS Status: Chronic Plan: Follow up with nephro recs on dialysis. Otherwise patient to resume dialysis as outpatient. (8) Hypertension Code(s): I10 - ESSENTIAL (PRIMARY) HYPERTENSION Status: Chronic QualifierTitle: Hypertension type: essential hypertension Qualified Code( s): I10 - Essential (primary) hypertension Plan: No issue with HTN at this time. Patient had HTN med 2 years ago but has not taken it since. Will start those meds if he becomes hypertensive. (9) Normocytic anemia, not due to blood loss Code(s): D64.9 - ANEMIA, UNSPECIFIED Status: Acute Plan: Resolved. Likely dilution due to missed dialysis. (10) Depression Code(s): F32.9 - MAJOR DEPRESSIVE DISORDER, SINGLE EPISODE, UNSPECIFIED Status : Chronic QualifierTitle: Depression Type: major depressive disorder Active/ Remission status: currently active Psychotic features: without psychotic features Plan: Continue with sertraline. (11) Elevated alkaline phosphatase level Status: Acute Plan: Back to normal level. May have been elevated due to stress from HHS and missed dialysis. <Facundo Sanderson - Last Filed: 03/28/18 11:31> Attending Addendum - Attending Addendum Date/Time: 03/28/18 1431 I personally evaluated the patient and discussed the management with Dr. Sanderson. I agree with the History, Examination, Assessment and Plan documented above with any addition or exceptions noted below. Patient condition improved. He denies complaints. Blood sugar and blood pressure more normal today. Will restart home insulin regimen and adjust as necessary. He can be transferred out of [facility] today. Continue HD per Nephro. Anticipate discharge home in next 1-2 days. <Efraín Mckinley - Last Filed: 03/28/18 14:34>
--- NOTE | 2018-03-28 11:40 | PRG ---
DATE OF SERVICE: 03/28/2018 SUBJECTIVE: A 37-year-old gentleman being seen for end-stage renal disease. Patient denies any naus ea, vomiting or chest pain. PHYSICAL EXAMINATION: GENERAL: Patient is awake, alert. VITAL SIGNS: Afebrile, pulse 75, breathing 16, blood pressure was 146/83. HEAD/NECK: Normocephalic. Atraumatic. EYES: EOMI. No deformity. EARS: Clear. No ulcers. NOSE: Intact. No lesions. MOUTH: Clear. No discharge. THROAT: Clear. No exudate. LUNGS: Clear. No crackles. CARDIAC: S1, S2. No rub. ABDOMEN: Benign. BS+. GENITALIA/RECTUM: [place] absent. BACK/EXTREMITIES: Edema 0+ Ulcer- NEUROLOGICAL: Alert and motor intact. SKIN: Rash- Bruise- LYMPHATICS: Edema- Ulcer- LABORATORY DATA: Show potassium is 4.3. ASSESSMENT AND RECOMMENDATIONS: 1. Stage 6 chronic kidney disease. We will plan dialysis. 2. Hypertension, stable. 3. Anemia, stable. 4. Uremia, stable. Noncompliance was discussed with the patient.
[2018-03-28] MEDS: HumaLOG 300 UNITS/3 ML VIAL SC SCH ×2 (12:00→18:01)
[2018-03-28] MEDS: Sevelamer Carbonate 800 MG TAB PO SCH ×2 (12:14→18:01)
[2018-03-28 17:57] VITALS: TEMP 97.6
[2018-03-28 19:40] VITALS: BP 115/76
--- NOTE | 2018-03-28 20:17 | PDOC.EVN ---
Event Note - Event Note Event Note: Patient tells nursing staff he is going to leave AMA MD visits patient to discuss, he says he is just ready to go Discussed staying to check labs in the morning but patient is not willing States he will f/u with Dr. Gonzalez, States he has dialysis setup for Monday and will not miss it
[2018-03-29] MEDS ORDERED: Amlodipine 10 MG TAB PO SCH (09:00)
--- NOTE | 2018-03-29 15:15 | DIS-2 ---
DATE OF ADMISSION: 03/27/2018 DATE OF DISCHARGE: 03/28/2018 RESIDENT: Dr. Fcaundo Sanderson. ADMITTING ATTENDING: Dr. Chela Contreras. DISCHARGE ATTENDING: Dr. Efraín Mckinley. CONSULTATIONS: 1. Dr. Gonzalez, Nephrology. 2. Dr. Carrasquillo, Pulmonology. PROCEDURES: Emergent dialysis for hyperkalemia. PRIMARY DIAGNOSES: 1. Hyperosmolar hyperglycemic state. 2. Type 1 diabetes. 3. End-stage renal dialysis patient, requiring dialysis. 4. Hyperkalemia. SECONDARY DIAGNOSES: 1. Diarrhea. 2. Elevated BNP. 3. Hypertensive urgency. 4. Normocytic anemia. 5. Depression. 6. Elevated alkaline phosphatase. DISCHARGE MEDICATIONS: The patient left AMA and did not receive any discharge instruction on his medications, as he left before this could be done. HISTORY OF PRESENT ILLNESS AND HOSPITAL COURSE: This is a 37-year-old male, who presented for 1 day of dizziness. He has a past medical history of end- stage renal disease; type 1 diabetes, uncontrolled; hypertension; and depression. His issues started on the day of admission after he missed dialysis the day prior. He endorses taking his insulin appropriately, but does not know what his dosage is and admits that his glucometer read high at home. When he came into the ER, he received 2 amps of bicarb, 1100 mg of calcium chloride, 10 units of Novolin and Nephrology was consulted from the ED and who agreed to urgent dialysis. This was secondary to various metabolic derangement that was discovered, which was glucose over 1000 with no anion gap acidosis. He was developing HSS, and receive insulin for this. He was found to have hyperkalemia with potassium 7.4, likely secondary to missed dialysis. For this , patient received calcium chloride for cardiac protection and Nephrology was consulted for emergent dialysis. He was also noted to be complaining about diarrhea, and as the patient goes to health care facility for dialysis is at high risk for C. difficile and had a C. difficile screen done at that time. He was found to be in hypertensive urgency; however, was asymptomatic. This was likely secondary to his missed dialysis. Secondary diagnosis include normocytic anemia that may be somewhat dilutional due to fluid overload from missing dialysis. He was noted to have a pulmonary infiltrate on his right lung on chest x-ray, which is stable from 2 months prior. At this time, he did not have any shortness of breath, coughing, or fever that would suggest an infection. A repeat chest x-ray was done, which still demonstrates it. I will continue x-ray, but as the patient was also fluid overload, it was considered perhaps that was just fluid on the lung, and while patient recently asymptomatic, was to continue monitoring that as an outpatient. As for elevated BNP was elevated over 300, he had a recent echo done, 2 months ago, that was found to be normal, so this elevated BNP is likely due to missed dialysis. After he had dialysis, his blood sugar dropped down into the 300s. He then received his usual home dose of 20 units of Lantus and was started on 5 units of Humalog for his mealtime dosing his blood sugar responded in the previous day his sugars staying between 120-150 on average. It was then felt that his HSS had resolved at that time as well as his hyperkalemia, which went down to below 5 after dialysis. His hypertension resolved as well with blood pressure under 140/90; however, why his primary issue was resolved, it was felt to be in his best medical interest to stay and then this should not no day for titration of his glucose for him to go home with ; however, patient left AMA at 2000 hours on 03/28/2018 against medical advice after the risk of this was discussed with him by the resident physician conveyor tender. The patient acknowledged to risks and signed AMA paperwork and then left. CEHSTER
--- NOTE | 2018-04-14 18:23 | EKG ---
Test Reason : Blood Pressure : / mmHG Vent. Rate : 085 BPM Atrial Rate : 085 BPM P-R Int : 174 ms QRS Dur : 104 ms QT Int : 362 ms P-R-T Axes : 071 193 045 degrees QTc Int : 430 ms Normal sinus rhythm Right superior axis deviation Pulmonary disease pattern Septal infarct , age undetermined Abnormal ECG Confirmed by LANEY DONATO D.O. ([id number]), telegraph editor VINI DE LA CRUZ ([id number]) on 04/14/2018 6:22:35 PM Referred By: Confirmed By:LANEY DONATO D.O.
== END 2018-03-28 20:22 | disposition left against medical advice (07) | DRG 638 ==
LOC: ERS 11:25 → IMCU/EMU 14:00 → ERS 15:41 → T4-B 03-28 11:00
PROVIDERS: ADMIT Family Medicine; ATTEND Family Medicine
DX: E10.69 Type 1 diabetes mellitus with other specified complication (principal); E87.2 Acidosis; I12.0 Hypertensive chronic kidney disease with stage 5 chronic kidney disease or end stage renal disease; N18.6 End stage renal disease; E11.22 Type 2 diabetes mellitus with diabetic chronic kidney disease; E87.5 Hyperkalemia; I16.0 Hypertensive urgency; D64.9 Anemia, unspecified; F32.9 Major depressive disorder, single episode, unspecified; Z99.2 Dependence on renal dialysis; Z89.511 Acquired absence of right leg below knee
CPT/HCPCS: 36415; 36416; 71045; 80053; 82010; 82330; 82803; 83690; 83735; 83880; 84100; 85025; 86803; 87324; 87340; 87350; 87389; 87449; 87493; 90935; 93005; 96374; 96375; 99406; G0257; J1644; J1815

== ENCOUNTER 2018-05-21 11:51 | Inpatient (IN) | payer MEDICARE, MEDICAID ==
[2018-05-21 13:35] LABS: Calc. Creatinine Clearance 0 mL/min (70-130); Calcium 9.5 mg/dL (7.8-10.44); Chloride 101 mmol/L (98-107); Estimated GFR-MDRD 4; Glucose 283 mg/dL (70-105); Sodium 133 mmol/L (136-145)
[2018-05-21 13:41] LABS: Carbon Dioxide Less than 8 mmol/L (22-29); Potassium 8.9 mmol/L (3.5-5.1)
[2018-05-21 13:46] LABS: BUN (Urea Nitrogen) 129 mg/dL (8.9-20.6)
--- NOTE | 2018-05-21 13:50 | CT ---
HEAD CT WITHOUT CONTRAST: Date: 05-21-18 Comparison: 03-04-16 History: Dizziness, malaise, shortness of breath. Technique: Serial axial CT imaging at 5 mm intervals from vertex through the skull base without contr ast. FINDINGS: Imaged paranasal sinuses/mastoid air cells well aerated. No displaced calvarial fracture. No intracranial hemorrhage, midline shift, mass effect, or ventricular enlargement. IMPRESSION: No acute findings. POS: URIAH
--- NOTE | 2018-05-21 14:48 | PDOC.FPRHP ---
Addendum entered and electronically signed by Tuan Hardwick MD 05/21/18 16:20: Spoke to both Dr. Gonzalez and Dr. Moreno. Both agree that because this patient will be ok to go home after completing Dialysis, they would like to d/c him from the ED Long talk was had with patient emphasizing that he will if he keeps skipping dialysis He says he will f/u with both Dr. Gonzalez and at [facility] Original Note: - History of Present Illness Chief Complaint: dizziness History of Present Illness: Mr Brush is a 37 yo male with pmh of insulin dependent DM, ESRD on hemodialysis (MWF), right BKA, HLD, HTN brought in by EMS presents with dizziness and "not feeling well." He reports missing 2 days of dialysis due to diarrhea. Diarrhea 3-4 times per day for the last year. Denies fevers, chills, blood in stools or nausea, vomiting. Does not make urine. Reports living with his mother and she manages most of his healthcare. Unsure of how much insulin he takes, reports taking Lantus and short acting BID. ED Course: calcium gluconate bicarb insulin urgent dialysis - Allergies/Adverse Reactions Allergies Allergy/AdvReac Type Severity Reaction Status Date / Time Penicillins Allergy Unknown Verified 05/21/18 15:11 - Home Medications Medication Instructions Recorded Confirmed Type Sevelamer Carbonate [Renvela] 3 tab PO TID-WM 09/08/15 05/21/18 History HumaLOG [HumaLOG Vial] 5 unit SC TID- PRN 09/25/15 05/21/18 History Amlodipine Besylate [amLODIPine 10 mg PO DAILY 09/02/16 05/21/18 History Besylate] Cinacalcet HCl [Sensipar] 60 mg PO DAILY 09/02/16 05/21/18 History hydrALAZINE [Apresoline] 25 mg PO TID 09/02/16 05/21/18 History Sertraline HCl 25 mg PO DAILY 03/03/17 05/21/18 History Insulin Detemir 100 UNITS/ML 15 units SC QAM #0 vial 01/18/18 05/21/18 Rx [Levemir] - History PMHx: Type 1 DM, ESRD, HTN, 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 denies: fever/chills Eyes: denies: vision changes ENT: denies: rhinorrhea Respiratory: denies: cough, congestion, shortness of breath Cardiovascular: reports: edema (trace leg swelling). denies: chest pain, palpitation Gastrointestinal: reports: diarrhea. denies: nausea, vomiting, abdominal pain, GI bleeding Genitourinary: reports: other (does not make urine) Skin: denies: rashes, lesions Musculoskeletal: denies: pain, arthritis/arthralgias Neurological: denies: numbness, seizure, weakness - Vital signs BP: 156/91 HR: 99 RR: 18 Tmax: 97.6 Pox: 98% on RA Wt: 81.5 - Physical Exam Constitutional: NAD, awake, alert and oriented, well developed HEENT: normocephalic and atraumatic, PERRLA, EOMI Neck: supple Heart: RRR, normal S1/S2, other (2/6 systolic murmur) Lungs: CTAB, no respiratory distress, good air movement Abdomen: soft, non-tender, bowel sounds present Musculoskeletal: other (right BKA) Neurological: no focal deficit, normal sensation Skin: no rash/lesions, capillary refill <2 seconds FMR H&P: Results - Labs Result Diagrams: 05/21/18 14:24 05/21/18 19:00 Lab results: Sodium 133 mmol/L (136-145) L 05/21/18 13:13 Potassium 8.9 mmol/L (3.5-5.1) H* 05/21/18 13:13 Chloride 101 mmol/L (98-107) 05/21/18 13:13 Carbon Dioxide Less than 8 mmol/L (22-29) L* 05/21/18 13:13 BUN 129 mg/dL (8.9-20.6) H 05/21/18 13:13 Creatinine 16.63 mg/dL (0.6-1.3) H 05/21/18 13:13 Glucose 283 mg/dL (70-105) H 05/21/18 13:13 Calcium 9.5 mg/dL (7.8-10.44) 05/21/18 13:13 FMR H&P: A/P - Problem List (1) Hyperkalemia Current Visit: No Status: Acute Priority: High Code(s): E87.5 - HYPERKALEMIA (2) Diarrhea Current Visit: No Status: Acute Code(s): R19.7 - DIARRHEA, UNSPECIFIED (3) Elevated brain natriuretic peptide (BNP) level Current Visit: No Status: Acute Code(s): R79.89 - OTHER SPECIFIED ABNORMAL FINDINGS OF BLOOD CHEMISTRY (4) Non-compliance with renal dialysis Current Visit: No Status: Chronic Code(s): Z91.15 - PATIENT'S NONCOMPLIANCE WITH RENAL DIALYSIS (5) Polysubstance abuse Current Visit: No Status: Chronic Priority: Low Code(s): F19.10 - OTHER PSYCHOACTIVE SUBSTANCE ABUSE, UNCOMPLICATED (6) Anxiety and depression Current Visit: No Status: Chronic Code(s): F41.9 - ANXIETY DISORDER, UNSPECIFIED; F32.9 - MAJOR DEPRESSIVE DISORDER, SINGLE EPISODE, UNSPECIFIED (7) Diabetes mellitus type 1 with complications Current Visit: No Status: Chronic Priority: High Code(s): E10.8 - TYPE 1 DIABETES MELLITUS WITH UNSPECIFIED COMPLICATIONS (8) ESRD (end stage renal disease) on dialysis Current Visit: No Status: Chronic Code(s): N18.6 - END STAGE RENAL DISEASE; Z99.2 - DEPENDENCE ON RENAL DIALYSIS (9) Hypertension Current Visit: No Status: Chronic Code(s): I10 - ESSENTIAL (PRIMARY) HYPERTENSION Qualifiers: Hypertension type: essential hypertension Qualified Code(s): I10 - Essential (primary) hypertension (10) HLD (hyperlipidemia) Current Visit: Yes Status: Chronic Code(s): E78.5 - HYPERLIPIDEMIA, UNSPECIFIED - Plan Disposition/LOS: Mr Brush is a 37 yo male with pmh of insulin dependent DM, ESRD on hemodialysis (MWF), right BKA, HLD, HTN brought in by EMS presents with dizziness and "not feeling well" found to have hyperkalemia 2/2 to missing dialysis 1. Hyperkalemia - K: 7.9 - Urgent dialysis in ED - Missed 2-3 dialysis appointments - Left arm fistula - Consulted Dr. Gonzalez - EKG shows peaked t-waves - Re-check BMP after dialysis 2. ESRD - Dialysis MWF - Urgent dialysis in ED - Manage as above 3. Type 1 DM - Right BKA - Patient unsure of home regimen - Records show 15U levemir q AM, 5U rapid acting with meals - Will start lantus 15U - SSI & Accuchecks - Beta-hydroxybutyrate pending 4. HTN - Continue Amlodipine 10mg - Continue Hydralazine 25mg 5. Polysubstance abuse - last time using PCP & marijuana was a few days ago - Serum drug screen pending 6. Tobacco Abuse - Nicotine patch PRN 7. Elevated BNP in prior admissions - Could be 2/2 to renal failure - Murmur heard on exam - Recheck BNP 8. Depression - Continue Zoloft Code status: FULL DVT PPx: heparin GI ppx: None FMR H&P: Upper Level - Pertinent history 37 yo M w/ PMH including T1DM, ESRD, Rt BKA, HTN comes in complaining of dizziness and SOB, "not feeling himself." He has missed dialysis for a "couple days" because he was having diarrhea. He thinks he missed 2-3 days of dialysis. Diarrhea 3-4 times a day for a year of so. Denies fevers, chills, or sweats. Denies N/V. Does not make urine. Not sure of his home diabetets regimen, says his mother usually manages it for him. - Plan Date/Time: 05/21/18 2888 I, Tuan Hardwick, have evaluated this patient and agree with findings/plan as outlined by regulatory affairs intern resident. Pertinent changes/additions are listed here. # Hyperkalemia - urgent dialysis - consulted Dr. Gonzalez - EKG shows peaked t-waves - missed 2-3 dialysis appointments - re-check BMP after dialysis # ESRD - on Dialysis MWF - has missed # Type 1 DM - patient unsure of home regimen - historic records shows 15U levemir q AM, 5U rapid acting with meals - will start lantus 15U - SSI moderate - check b-hydroxybutyrate # HTN - home meds # Drug abuse - check serum drug screen - last time using PCP was a few days ago # Code status - full code #PPx -heparin Attending Addendum - Attending Addendum Date/Time: 05/21/18 2603 I personally evaluated the patient and discussed the management with Dr. Núñez and Dr. Hardwick I agree with the History, Examination, Assessment and Plan documented above with any addition or exceptions noted below. 37 yo male with multiple medical conditions and difficulty with compliance presents for evaluation of dizziness/not feeling well. He was noted to have significantly elevated K+ and extremely low bicarb. Patient reports missing HD for over a week due to not wanting to go/not feeling well. Denies palpitations, SOB, CP Dr. Gonzalez consulted from ER. Emergent HD in ER in process. Peaked T waves on EMS rhythm strip. Lead V3 peaked T on 12 lead EKG. Will repeat BMP after HD to see if ok to be d/c per Dr. Gonzalez. Simone
[2018-05-21 14:51] LABS: #Lymphocytes 1.6 thou/uL (1.20-3.40); #Monocytes 0.4 thou/uL (0.11-0.59); #Neutrophils 3.5 thou/uL (1.40-6.50); %Basophils 0.1 % (0.0-1.0); %Eosinophils 0.9 % (0.0-10.0); %Lymphocytes 28.9 % (21.0-51.0); %Monocytes 6.5 % (0.0-10.0); %Neutrophils 63.6 % (42.0-75.0); Hemoglobin 13.1 g/dL (14.0-18.0); Mean Corpuscular HGB CONC 31.8 g/dL (32.0-36.0); Mean Corpuscular Hemoglobin 27.9 pg (27.0-31.0); Mean Corpuscular Volume 87.8 fL (78.0-98.0); Mean Platelet Volume 11.7 fL (7.4-10.4); Platelet Count 100 thou/uL (130-400); RBC Distribution Width 15.8 % (11.5-14.5); Red Blood Cell (RBC) Count 4.69 mill/uL (4.70-6.10); White Blood Cell (WBC) Count 5.5 thou/uL (4.8-10.8)
[2018-05-21] MEDS ORDERED: Dextrose 50% Abboject 50 ML SYRINGE SLOW IVP PRN (15:19)
[2018-05-21] MEDS ORDERED: Dextrose 5% in Water 1,000 ML IV PRN (15:19)
[2018-05-21] MEDS ORDERED: HumaLOG 300 UNITS/3 ML VIAL SC PRN (15:19)
[2018-05-21 19:39] LABS: Anion Gap 22 mmol/L (10-20); BUN (Urea Nitrogen) 30 mg/dL (8.9-20.6); Calc. Creatinine Clearance 0 mL/min (70-130); Calcium 9.4 mg/dL (7.8-10.44); Carbon Dioxide 23 mmol/L (22-29); Chloride 97 mmol/L (98-107); Estimated GFR-MDRD 17; Glucose 120 mg/dL (70-105); Potassium 3.5 mmol/L (3.5-5.1); Sodium 138 mmol/L (136-145)
--- NOTE | 2018-05-21 20:37 | PDOC.FM ---
- Subjective Subjective: Pt doing well after HD. - Objective Result Diagrams: 05/21/18 14:24 05/21/18 19:00 <Jagjit Salazar - Last Filed: 05/21/18 20:38> - Objective Result Diagrams: 05/21/18 14:24 05/21/18 19:00 <Chela Contreras - Last Filed: 05/21/18 21:18> Dx/Plan - Plan Plan: Spoke with Dr Gonzalez. Agrees with discharge. AG of 22 noted with improved electrolytes. Recommended f/u BMP tomorrow outpatient. <Jagjit Salazar - Last Filed: 05/21/18 20:38> (1) Hyperkalemia Code(s): E87.5 - HYPERKALEMIA Status: Acute (2) Diarrhea Code(s): R19.7 - DIARRHEA, UNSPECIFIED Status: Acute (3) Elevated brain natriuretic peptide (BNP) level Code(s): R79.89 - OTHER SPECIFIED ABNORMAL FINDINGS OF BLOOD CHEMISTRY Status : Acute (4) Non-compliance with renal dialysis Code(s): Z91.15 - PATIENT'S NONCOMPLIANCE WITH RENAL DIALYSIS Status: Chronic (5) Polysubstance abuse Code(s): F19.10 - OTHER PSYCHOACTIVE SUBSTANCE ABUSE, UNCOMPLICATED Status: Chronic (6) Anxiety and depression Code(s): F41.9 - ANXIETY DISORDER, UNSPECIFIED; F32.9 - MAJOR DEPRESSIVE DISORDER, SINGLE EPISODE, UNSPECIFIED Status: Chronic (7) Diabetes mellitus type 1 with complications Code(s): E10.8 - TYPE 1 DIABETES MELLITUS WITH UNSPECIFIED COMPLICATIONS Status: Chronic (8) ESRD (end stage renal disease) on dialysis Code(s): N18.6 - END STAGE RENAL DISEASE; Z99.2 - DEPENDENCE ON RENAL DIALYSIS Status: Chronic (9) Hypertension Code(s): I10 - ESSENTIAL (PRIMARY) HYPERTENSION Status: Chronic Qualifiers: Hypertension type: essential hypertension Qualified Code(s): I10 - Essential (primary) hypertension (10) HLD (hyperlipidemia) Code(s): E78.5 - HYPERLIPIDEMIA, UNSPECIFIED Status: Chronic <Chela Contreras - Last Filed: 05/21/18 21:18> Attending Addendum - Attending Addendum Date/Time: 05/21/18 5764 I personally evaluated the patient and discussed the management with Dr. Danielson I agree with the History, Examination, Assessment and Plan documented above with any addition or exceptions noted below. Ok with d/c. Dr. Gonzalez notified of repeat labs. Patient to follow up with repeat BMP and HD on Monday. Simone <Chela Contreras - Last Filed: 05/21/18 21:18>
--- NOTE | 2018-05-22 00:25 | CON ---
DATE OF CONSULTATION: 05/21/2018 NEPHROLOGY CONSULTATION REASON FOR CONSULTATION: Hyperkalemia. HISTORY OF PRESENT ILLNESS: This is a very pleasant 37-year-old gentleman who missed dialysis for a whole week who presented to the hospital with a potassium of 8.9. The patient can give no further hi story. Denies any nausea, vomiting or chest pain. PAST MEDICAL HISTORY: Negative for diabetes mellitus, amputation, hypertension, anemia, end-stage re nal disease on dialysis catheter, AV fistula. SOCIAL HISTORY: No alcohol or drug use. Denies tobacco. FAMILY HISTORY: Negative for ESRD. ALLERGIES: Reviewed. HOME MEDICATIONS: List reviewed. PHYSICAL EXAMINATION: GENERAL: The patient was awake, but somnolent. VITAL SIGNS: Afebrile, pulse 75, breathing at 16, blood pressure was 130/74. HEAD/NECK: Normocephalic. Atraumatic. EYES: EOMI. No deformity. EARS: Clear. No ulcers. NOSE: Intact. No lesions. MOUTH: Clear. No discharge. THROAT: Clear. No exudate. LUNGS: Clear. No crackles. CARDIAC: S1, S2. No rub. ABDOMEN: Benign. BS+. GENITALIA/RECTUM: Clifton absent. BACK/EXTREMITIES: Edema 0+ Ulcer- NEUROLOGICAL: Somnolent. SKIN: Rash- Bruise- LYMPHATICS: Edema- Ulcer- REVIEW OF SYSTEMS: Unobtainable. LABORATORY: Hemoglobin 13.1, potassium 8.9, bicarbonate less than 8. ASSESSMENT AND RECOMMENDATIONS: 1. Stage 6 chronic kidney disease. Plan, dialysis. 2. Uremia, plan dialysis. 3. Hyperkalemia, plan dialysis. 4. Metabolic acidosis, plan dialysis. Prognosis is poor. There is a possibility. Risks versus com pliance was discussed with the patient and Adult Protective Services has been ordered multiple times.
--- NOTE | 2018-05-22 06:03 | DIS-2 ---
DATE OF ADMISSION: 05/21/2018 DATE OF DISCHARGE: 05/21/2018 RESIDENT: Dr. Tuan Hardwick. ADMITTING ATTENDING: Dr. Chela Contreras. DISCHARGE ATTENDING: Dr. Chela Contreras. CONSULTATIONS: Nephrology, Dr. Gonzalez. PROCEDURE: Urgent dialysis. PRIMARY DIAGNOSIS: Hyperkalemia. SECONDARY DIAGNOSES: Type 1 diabetes, end-stage renal disease, hypertension, hyperlipidemia, and dep ression. DISCHARGE MEDICATIONS: Lantus, Humalog, sertraline, hydralazine, sevelamer, cinacalcet, amlodipine. DISCONTINUED MEDICATIONS: None. HISTORY OF PRESENT ILLNESS: This is a 37-year-old male who presented to the ED with chief complaint of "dizziness" he states that he had been feeling off for a couple of days or so. He stated that he had missed 2-3 days of dialysis. He did not exactly remember. He states that he did not go to [facility] because he had some diarrhea. He stated this diarrhea had been going on for at least a year, he stated that the diarrhea was 3 or 4 times a day and it was soft, but not full liquid. He denied bloo d in the stool. He denied fevers, chills, or sweats. He was found to have a potassium of 8.9 and a creatinine of 16.8. Dr. Gonzalez was consulted and ordered an urgent dialysis for the patient. After di alysis, the patient's potassium came down to 3.5 and his BMP was acceptable. Patient felt better aft er this and was discharged home. The case was discussed with Dr. Gonzalez and Dr. Moreno, both of who dec ided that it was better for the patient to be discharged to home and follow up with dialysis on . A long discussion was had with the patient, stating that he needs to follow up with his dialys is where he will eventually from these electrolyte abnormalities. The patient was given discharg e information to follow up at [facility]. DISPOSITION: Stable. DISCHARGE INSTRUCTIONS: 1. Location: Home. 2. Diet: Regular. 3. Activity: As tolerated. 4. Followup: Follow up in 1-2 days at [facility], dialysis on Monday, Monday, and ay schedule with Dr. Gonzalze.
[2018-05-22] MEDS ORDERED: Insulin Glargine 15 UNITS in Pre-Filled Syringe 1 EACH SC SCH (09:00)
[2018-05-22] MEDS ORDERED: Dextrose 5 %-0.45 % NaCl 1,000 ML IV PRN (15:27)
[2018-05-22] MEDS ORDERED: CCU Electrolyte Replacement 1 EACH IVPB ONE (15:27)
[2018-05-22] MEDS ORDERED: Sodium Chloride 0.9% 1,000 ML IV PRN ×4 (15:27)
[2018-05-22] MEDS ORDERED: D5 1/2 NS w/20 mEq KCL 1,000 ML IV PRN (15:27)
[2018-05-22] MEDS ORDERED: NS 0.9% w/ 20 MEQ KCL 1,000 ML IV PRN ×2 (15:27)
[2018-05-22] MEDS ORDERED: Potassium Phosphate 9 MMOL in Sodium Chloride 0.9% 100 ML IVPB PRN (17:10)
[2018-05-22] MEDS ORDERED: Magnesium Oxide 400 MG TAB PO PRN ×2 (17:10)
[2018-05-22] MEDS ORDERED: Potassium Chloride 40 MEQ in Sodium Chloride 0.9% 250 ML 250 ML IVPB PRN (17:10)
[2018-05-22] MEDS ORDERED: Potassium Chloride 20 MEQ TAB PO PRN (17:10)
[2018-05-22] MEDS ORDERED: Potassium Phosphate 12 MMOL in Sodium Chloride 0.9% 250 ML 250 ML IV PRN (17:10)
[2018-05-22] MEDS ORDERED: Potassium Phosphate 15 MMOL in Sodium Chloride 0.9% 250 ML 250 ML IV PRN (17:10)
[2018-05-22] MEDS ORDERED: Potassium Chloride 40 MEQ in Premix Bag 1 BAG IVPB PRN (17:10)
[2018-05-22] MEDS ORDERED: Magnesium 2 GM/NS 0.9% 100 ML 2 GM in Premix Bag 1 BAG IVPB PRN (17:10)
[2018-05-22] MEDS ORDERED: CCU ELECTROLYTE REPLACEMENT PROTOCOL FS PRN (17:10)
[2018-05-22 17:51] LABS: Anion Gap 26 mmol/L (10-20); BUN (Urea Nitrogen) 50 mg/dL (8.9-20.6); Calc. Creatinine Clearance 0 mL/min (70-130); Carbon Dioxide 15 mmol/L (22-29); Chloride 102 mmol/L (98-107); Estimated GFR-MDRD 8; Glucose 206 mg/dL (70-105); Potassium 4.8 mmol/L (3.5-5.1); Sodium 138 mmol/L (136-145)
[2018-05-22] MEDS ORDERED: Heparin 5,000 UNITS/ML VIAL SC SCH (21:00)
== END 2018-05-21 22:27 | disposition home or self-care (01) | DRG 640 ==
LOC: ERS 11:51 → ERHOLD 15:25
PROVIDERS: ADMIT Family Medicine; ATTEND Family Medicine
PROC: 5A1D70Z Performance of Urinary Filtration, Intermittent, Less than 6 Hours Per Day (ICD-10-PCS; principal; 2018-05-21)
DX: E87.5 Hyperkalemia (principal); N18.6 End stage renal disease; I12.0 Hypertensive chronic kidney disease with stage 5 chronic kidney disease or end stage renal disease; E10.22 Type 1 diabetes mellitus with diabetic chronic kidney disease; Z99.2 Dependence on renal dialysis; Z91.15 Patient's noncompliance with renal dialysis; Z79.4 Long term (current) use of insulin; E78.5 Hyperlipidemia, unspecified; F32.9 Major depressive disorder, single episode, unspecified; F19.10 Other psychoactive substance abuse, uncomplicated; F41.9 Anxiety disorder, unspecified; E87.2 Acidosis
CPT/HCPCS: 36415; 36416; 70450; 80048; 82010; 85025; 93005; J1815; J7050

== ENCOUNTER 2018-05-22 10:58 | Inpatient (IN) | payer MEDICARE, MEDICAID ==
[2018-05-22 11:34] LABS: #Lymphocytes 1.3 thou/uL (1.20-3.40); #Monocytes 0.5 thou/uL (0.11-0.59); %Basophils 0.4 % (0.0-1.0); %Eosinophils 0.8 % (0.0-10.0); %Lymphocytes 26.3 % (21.0-51.0); %Monocytes 10.4 % (0.0-10.0); %Neutrophils 62.1 % (42.0-75.0); Hemoglobin 13.9 g/dL (14.0-18.0); Mean Corpuscular HGB CONC 33.6 g/dL (32.0-36.0); Mean Corpuscular Hemoglobin 29.1 pg (27.0-31.0); Mean Corpuscular Volume 86.6 fL (78.0-98.0); Mean Platelet Volume 11.4 fL (7.4-10.4); Platelet Count 85 thou/uL (130-400); RBC Distribution Width 15.7 % (11.5-14.5); Red Blood Cell (RBC) Count 4.76 mill/uL (4.70-6.10); White Blood Cell (WBC) Count 4.9 thou/uL (4.8-10.8)
[2018-05-22 12:04] LABS: ALT (SGPT) 12 U/L (8-55); AST (SGOT) 14 U/L (5-34); Albumin 3.9 g/dL (3.5-5.0); Alkaline Phosphatase 130 U/L (40-150); Anion Gap 24 mmol/L (10-20); BUN (Urea Nitrogen) 48 mg/dL (8.9-20.6); Bilirubin, Total 0.7 mg/dL (0.2-1.2); Calc. Creatinine Clearance 0 mL/min (70-130); Calcium 9.2 mg/dL (7.8-10.44); Carbon Dioxide 18 mmol/L (22-29); Chloride 99 mmol/L (98-107); Estimated GFR-MDRD 8; Globulin 3.7 g/dL (2.4-3.5); Glucose 304 mg/dL (70-105); Potassium 5.2 mmol/L (3.5-5.1); Protein, Total 7.6 g/dL (6.0-8.3); Sodium 136 mmol/L (136-145)
--- NOTE | 2018-05-22 12:20 | CT ---
CT BRAIN NONCONTRAST: HISTORY: 37-year-old male with headache and dizziness. FINDINGS: There is no midline shift or any other mass effect. There is no evidence of acute intracranial hemor rhage, large cortical infarct, obstructive hydrocephalus, or extraaxial fluid collection. The calvar ium is intact. IMPRESSION: No acute intracranial findings. roberto carlos [] POS: [facility]
[2018-05-22 13:37] LABS: CKMB 5.6 ng/mL (0-6.6); Troponin I Less than 0.010 ng/mL (< 0.028)
[2018-05-22 13:41] LABS: Magnesium 2.4 mg/dL (1.6-2.6); Phosphorus 6.5 mg/dL (2.3-4.7)
[2018-05-22 13:59] LABS: Base Excess-Venous -3.8 mmol/L (0 (+/- 2.5)); Bicarbonate (HCO3v) 22.1 mmol/L (1.0-85.0); CO2 Tension (PvCO2) 41.8 mmHg (41.0-51.0); Calcium, Ionized 1.07 mmol/L (1.12-1.32); Hemoglobin - Calc 15.2 g/dL (12.0-18.0); T. Carbon Dioxide 23.3 mmol/L (1.0-85.0); pH (Venous) 7.331 (7.35-7.45); vO2 Saturation-calc 95.8 % (94-98)
--- NOTE | 2018-05-22 14:12 | RAD ---
PORTABLE CHEST: Comparison: 03-28-18 History: Dizziness. FINDINGS: Mild pulmonary vascular prominence. No pneumothorax, pleural fluid, lobar consolidation or alveolar e brittney. Heart and mediastinal contours are stable. Vascular stent material overlies the left axillary r egion and left lung apex, stable. IMPRESSION: No focal consolidation or evidence of pulmonary edema. POS: [facility]
[2018-05-22 14:44] LABS: Anion Gap 28 mmol/L (10-20); BUN (Urea Nitrogen) 50 mg/dL (8.9-20.6); Calc. Creatinine Clearance 0 mL/min (70-130); Calcium 9.3 mg/dL (7.8-10.44); Carbon Dioxide 15 mmol/L (22-29); Chloride 98 mmol/L (98-107); Estimated GFR-MDRD 8; Glucose 301 mg/dL (70-105); Potassium 5.6 mmol/L (3.5-5.1); Sodium 135 mmol/L (136-145)
--- NOTE | 2018-05-22 15:38 | PDOC.FPRHP ---
- History of Present Illness Chief Complaint: "not feeling right" History of Present Illness: 37 yo M with history of drug abuse on uncontrolled diabetes comes in after having emergency dialysis last night. He states that he is "not feeling right." Has a hard time describing what he means. He states he is feeling dizzy at times saying the room is spinning and it comes and goes. There is nothing that makes it better or worse. After having emergent dialysis in the ER yesterday he had david nunes on the way home. He denies N/V/D or pain at this time. He states he is feeling hungry. He did not take any of his insulin since going home. ED Course: Started on insulin drip NS 1L Consulted Dr. Gonzalez - Allergies/Adverse Reactions Allergies Allergy/AdvReac Type Severity Reaction Status Date / Time Penicillins Allergy Unknown Verified 05/21/18 15:11 - Home Medications Medication Instructions Recorded Confirmed Type Sevelamer Carbonate [Renvela] 3 tab PO TID-WM 09/08/15 05/21/18 History HumaLOG [HumaLOG Vial] 5 unit SC TID-WM PRN 09/25/15 05/21/18 History Amlodipine Besylate [amLODIPine 10 mg PO DAILY 09/02/16 05/21/18 History Besylate] Cinacalcet HCl [Sensipar] 60 mg PO DAILY 09/02/16 05/21/18 History hydrALAZINE [Apresoline] 25 mg PO TID 09/02/16 05/21/18 History Sertraline HCl 25 mg PO DAILY 03/03/17 05/21/18 History Insulin Detemir 100 UNITS/ML 15 units SC QAM #0 vial 01/18/18 05/21/18 Rx [Levemir] - History PMHx: PSHx: FHx: Social: - Review of Systems General: denies: fever/chills, fatigue Eyes: denies: eye pain, vision changes ENT: denies: nasal congestion Respiratory: denies: cough, shortness of breath Cardiovascular: denies: chest pain, palpitation, edema Gastrointestinal: denies: nausea, vomiting, diarrhea, GI bleeding Genitourinary: denies: incontinence Skin: denies: rashes, itching Musculoskeletal: denies: pain, arthritis/arthralgias Neurological: denies: numbness, weakness - Vital signs BP: 163/103 HR: 100 RR: 20 Tmax: 98.3 Pox: 95% on RA Wt: 58.97kg - Physical Exam Constitutional: NAD, awake, alert and oriented HEENT: normocephalic and atraumatic, PERRLA, EOMI Neck: supple Heart: RRR, normal S1/S2, no murmurs/rubs/gallops, pulses present Lungs: CTAB, no respiratory distress, good air movement Abdomen: soft, non-tender, bowel sounds present Musculoskeletal: ROM grossly normal -Musculoskeletal: Right BKA Neurological: no focal deficit, CN II-XII intact Skin: no rash/lesions, capillary refill <2 seconds FMR H&P: Results - Labs Result Diagrams: 05/22/18 11:23 05/22/18 14:21 Lab results: WBC 5.5 thou/uL (4.8-10.8) 05/21/18 14:24 Hgb 13.1 g/dL (14.0-18.0) L 05/21/18 14:24 Hct 41.2 % (42.0-52.0) L 05/21/18 14:24 MCV 87.8 fL (78.0-98.0) 05/21/18 14:24 Plt Count 100 thou/uL (130-400) L 05/21/18 14:24 Neutrophils % 63.6 % (42.0-75.0) 05/21/18 14:24 Sodium 138 mmol/L (136-145) 05/21/18 19:00 Potassium 3.5 mmol/L (3.5-5.1) 05/21/18 19:00 Chloride 97 mmol/L (98-107) L 05/21/18 19:00 Carbon Dioxide 23 mmol/L (22-29) 05/21/18 19:00 BUN 30 mg/dL (8.9-20.6) H 05/21/18 19:00 Creatinine 4.83 mg/dL (0.6-1.3) H 05/21/18 19:00 Glucose 120 mg/dL (70-105) H 05/21/18 19:00 Calcium 9.4 mg/dL (7.8-10.44) 05/21/18 19:00 FMR H&P: A/P - Problem List (1) DKA (diabetic ketoacidoses) Current Visit: No Status: Resolved Code(s): E13.10 - OTH DIABETES MELLITUS WITH KETOACIDOSIS WITHOUT COMA (2) Hyperkalemia Current Visit: No Status: Acute Priority: High Code(s): E87.5 - HYPERKALEMIA (3) Polysubstance abuse Current Visit: No Status: Chronic Priority: Low Code(s): F19.10 - OTHER PSYCHOACTIVE SUBSTANCE ABUSE, UNCOMPLICATED (4) Diarrhea Current Visit: No Status: Acute Code(s): R19.7 - DIARRHEA, UNSPECIFIED (5) Diabetes mellitus type 1 Current Visit: No Status: Chronic Code(s): E10.9 - TYPE 1 DIABETES MELLITUS WITHOUT COMPLICATIONS - Plan # DKA - b-hydroybutyrate 4.8, Gap 19 - insulin drip, check BMP q1 hr - pH 7.33 - mag 2.4, phos 6.5 - anticipate switching to IM insulin soon Hyperkalemia - urgent dialysis last night - 5 today - will monitor with frequent BMPs # ESRD - on Dialysis MWF - has missed frequently - Dr. Gonzalez consulted # Type 1 DM - historic records shows 15U levemir q AM, 5U rapid acting with meals - will start lantus 15U # HTN - home meds # Drug abuse - check serum drug screen - last time using PCP was a few days ago # Code status - full code #PPx -heparin FMR H&P: Upper Level - Plan Date/Time: 05/22/18 1536 I, [], have evaluated this patient and agree with findings/plan as outlined by international recruiter resident. Pertinent changes/additions are listed here. Attending Addendum - Attending Addendum Date/Time: 05/22/18 9882 I personally evaluated the patient and discussed the management with Dr. Hardwick I agree with the History, Examination, Assessment and Plan documented above with any addition or exceptions noted below. 37 yo male with multiple medical conditions presents with mild DKA due to medication noncompliance. Will admit ON. Start insulin drip. Convert once gap closed. AG = 22. Elevated ketones with borderline pH on VBG. Trend labs. Give Calciumbicarb. HD in AM. Simone
[2018-05-22] MEDS ORDERED: Ondansetron ODT 4 MG TAB PO PRN (18:29)
[2018-05-22] MEDS ORDERED: HumaLOG 300 UNITS/3 ML VIAL SC PRN (18:29)
[2018-05-22] MEDS ORDERED: Dextrose 5% in Water 1,000 ML IV PRN (18:29)
[2018-05-22] MEDS ORDERED: Sodium Chloride 0.9% 1,000 ML IV PRN ×4 (18:29)
[2018-05-22] MEDS ORDERED: NS 0.9% w/ 20 MEQ KCL 1,000 ML IV PRN ×2 (18:29)
[2018-05-22] MEDS ORDERED: hydrALAZINE 20 MG/ML VIAL SLOW IVP PRN (18:29)
[2018-05-22] MEDS ORDERED: CCU Electrolyte Replacement 1 EACH IVPB SCH (18:29)
[2018-05-22] MEDS ORDERED: Dextrose 50% Abboject 50 ML SYRINGE SLOW IVP PRN ×2 (18:29)
[2018-05-22] MEDS ORDERED: CCU ELECTROLYTE REPLACEMENT PROTOCOL FS PRN (18:32)
[2018-05-22] MEDS ORDERED: Potassium Chloride 20 MEQ TAB PO PRN (18:32)
[2018-05-22] MEDS ORDERED: Magnesium 2 GM/NS 0.9% 100 ML 2 GM in Premix Bag 1 BAG IVPB PRN (18:32)
[2018-05-22] MEDS ORDERED: Potassium Phosphate 15 MMOL in Sodium Chloride 0.9% 250 ML 250 ML IV PRN (18:32)
[2018-05-22] MEDS ORDERED: Potassium Phosphate 9 MMOL in Sodium Chloride 0.9% 100 ML IVPB PRN (18:32)
[2018-05-22] MEDS ORDERED: Potassium Phosphate 12 MMOL in Sodium Chloride 0.9% 250 ML 250 ML IV PRN (18:32)
[2018-05-22] MEDS ORDERED: Potassium Chloride 40 MEQ in Sodium Chloride 0.9% 250 ML 250 ML IVPB PRN (18:32)
[2018-05-22] MEDS ORDERED: Magnesium Oxide 400 MG TAB PO PRN ×2 (18:32)
[2018-05-22] MEDS ORDERED: Potassium Chloride 40 MEQ in Premix Bag 1 BAG IVPB PRN (18:32)
[2018-05-22 21:12] LABS: Anion Gap 27 mmol/L (10-20); BUN (Urea Nitrogen) 50 mg/dL (8.9-20.6); Calc. Creatinine Clearance 0 mL/min (70-130); Calcium 9.3 mg/dL (7.8-10.44); Carbon Dioxide 15 mmol/L (22-29); Chloride 101 mmol/L (98-107); Estimated GFR-MDRD 8; Glucose 181 mg/dL (70-105); Sodium 138 mmol/L (136-145)
[2018-05-22 23:40] LABS: Anion Gap 24 mmol/L (10-20); BUN (Urea Nitrogen) 19 mg/dL (8.9-20.6); Calc. Creatinine Clearance 0 mL/min (70-130); Calcium 9.2 mg/dL (7.8-10.44); Carbon Dioxide 20 mmol/L (22-29); Chloride 99 mmol/L (98-107); Estimated GFR-MDRD 17; Glucose 136 mg/dL (70-105); Potassium 3.8 mmol/L (3.5-5.1); Sodium 139 mmol/L (136-145)
[2018-05-23] MEDS: Heparin 5,000 UNITS/ML VIAL SC SCH ×4 (01:21→21:00)
[2018-05-23] MEDS: hydrALAZINE 25 MG TAB PO SCH ×4 (01:24→23:27)
[2018-05-23 01:44] LABS: Anion Gap 24 mmol/L (10-20); BUN (Urea Nitrogen) 22 mg/dL (8.9-20.6); Calc. Creatinine Clearance 0 mL/min (70-130); Calcium 9.3 mg/dL (7.8-10.44); Carbon Dioxide 20 mmol/L (22-29); Chloride 100 mmol/L (98-107); Estimated GFR-MDRD 15; Glucose 199 mg/dL (70-105); Potassium 4.3 mmol/L (3.5-5.1); Sodium 140 mmol/L (136-145)
[2018-05-23] MEDS ORDERED: D5 1/2 NS w/20 mEq KCL 1,000 ML IV PRN (05:40)
[2018-05-23] MEDS ORDERED: CCU Electrolyte Replacement 1 EACH IVPB ONE (05:40)
[2018-05-23] MEDS ORDERED: Dextrose 5 %-0.45 % NaCl 1,000 ML IV PRN (05:40)
[2018-05-23] MEDS ORDERED: NS 0.9% w/ 20 MEQ KCL 1,000 ML IV PRN ×2 (05:40)
[2018-05-23] MEDS ORDERED: Sodium Chloride 0.9% 1,000 ML IV PRN ×4 (05:40)
[2018-05-23 05:52] LABS: ALT (SGPT) 11 U/L (8-55); AST (SGOT) 15 U/L (5-34); Albumin 3.7 g/dL (3.5-5.0); Alkaline Phosphatase 117 U/L (40-150); Bilirubin, Total 0.8 mg/dL (0.2-1.2); Globulin 3.4 g/dL (2.4-3.5); Protein, Total 7.1 g/dL (6.0-8.3)
[2018-05-23 06:08] LABS: Anion Gap 28 mmol/L (10-20); BUN (Urea Nitrogen) 23 mg/dL (8.9-20.6); Calc. Creatinine Clearance 14 mL/min (70-130); Calcium 9.8 mg/dL (7.8-10.44); Carbon Dioxide 16 mmol/L (22-29); Chloride 100 mmol/L (98-107); Estimated GFR-MDRD 14; Glucose 227 mg/dL (70-105); Potassium 4.8 mmol/L (3.5-5.1); Sodium 139 mmol/L (136-145)
--- NOTE | 2018-05-23 06:43 | PDOC.FM ---
- Subjective Subjective: This morning the patient states he slept well overnight. He did eat a sandwich last night without issues. He denies any pain at time of exam. He was experiencing a slight amount of nausea but no vomiting. He states he will be compliant staying another day. - Objective MAR Reviewed: Yes Vital Signs & Weight: Vital Signs (12 hours) Temp Pulse Resp BP BP Pulse Ox 05/23/18 04:00 98.9 F 86 16 130/70 96 05/23/18 01:24 91 153/75 H 05/23/18 00:00 98.5 F 91 16 153/75 H 97 05/22/18 23:15 98.5 F 91 16 05/22/18 23:00 98.8 F 78 16 135/77 98 Weight Weight 57 kg I&O: 05/21/18 05/22/18 05/23/18 06:59 06:59 06:59 Intake Total 400 Balance 400 Result Diagrams: 05/22/18 11:23 05/23/18 05:35 <Tuan Hardwick - Last Filed: 05/23/18 06:42> - Objective Vital Signs & Weight: Vital Signs (12 hours) Temp Pulse Resp BP BP Pulse Ox 05/23/18 11:06 98.5 F 97 16 162/85 H 100 05/23/18 09:05 96 134/78 05/23/18 07:52 98.0 F 96 16 100 05/23/18 07:00 98.0 F 96 16 172/71 H 100 05/23/18 04:00 98.9 F 86 16 130/70 96 05/23/18 01:24 91 153/75 H 05/23/18 00:00 98.5 F 91 16 153/75 H 97 Weight Weight 62.1 kg I&O: 05/22/18 05/23/18 05/24/18 06:59 06:59 06:59 Intake Total 400 398.2 Balance 400 398.2 Result Diagrams: 05/22/18 11:23 05/23/18 10:32 <Saji Rao - Last Filed: 05/23/18 11:54> Phys Exam - Physical Examination Constitutional: NAD HEENT: PERRLA, moist MMs Neck: no nodes, full ROM Respiratory: no wheezing, no rales, clear to auscultation bilateral Cardiovascular: RRR, no significant murmur Gastrointestinal: soft, non-tender, no distention, positive bowel sounds Musculoskeletal: no edema, pulses present r bka Neurological: non-focal Psychiatric: normal affect, A&O x 3 Skin: no rash, cap refill <2 seconds <Tuan Hardwick - Last Filed: 05/23/18 06:42> Dx/Plan (1) Diarrhea Code(s): R19.7 - DIARRHEA, UNSPECIFIED Status: Acute (2) Diabetes mellitus type 1 Code(s): E10.9 - TYPE 1 DIABETES MELLITUS WITHOUT COMPLICATIONS Status: Chronic (3) Polysubstance abuse Code(s): F19.10 - OTHER PSYCHOACTIVE SUBSTANCE ABUSE, UNCOMPLICATED Status: Chronic (4) DKA (diabetic ketoacidoses) Code(s): E13.10 - OTH DIABETES MELLITUS WITH KETOACIDOSIS WITHOUT COMA Status : Resolved (5) ESRD (end stage renal disease) on dialysis Code(s): N18.6 - END STAGE RENAL DISEASE; Z99.2 - DEPENDENCE ON RENAL DIALYSIS Status: Chronic (6) Hypertension Code(s): I10 - ESSENTIAL (PRIMARY) HYPERTENSION Status: Chronic QualifierTitle: Hypertension type: essential hypertension Qualified Code( s): I10 - Essential (primary) hypertension (7) Non-compliance with renal dialysis Code(s): Z91.15 - PATIENT'S NONCOMPLIANCE WITH RENAL DIALYSIS Status: Chronic - Plan Plan: # DKA - b-hydroybutyrate 4.8-> 4.0-> 4.7, Gap 23 this AM after dialysis - put in transfer orders to [facility] for insulin drip - insulin drip, check BMP q2 hr - pH 7.33 - mag 2.4, phos 6.5 Hyperkalemia- resolved - urgent dialysis last night - K 4.8 this AM - will monitor with frequent BMPs # ESRD - on Dialysis MWF, had urgernt dialysis last night - has missed frequently - Dr. Gonzalez consulted # Type 1 DM - historic records shows 15U levemir q AM, 5U rapid acting with meals - will start lantus 15U once gap is closed # HTN - home meds # Drug abuse - last time using PCP was a few days ago # Code status - full code #PPx -heparin <Tuan Hardwick - Last Filed: 05/23/18 06:42> Attending Addendum - Attending Addendum Date/Time: 05/23/18 1150 I personally evaluated the patient and discussed the management with Dr. Hardwick I agree with the History, Examination, Assessment and Plan documented above with any addition or exceptions noted below.Candid discussion with patient regard any obstacles to care financial,transport etc. Patient unable to identify any barriers to his care other than self endorsed non-compliance with rec treatment. Would advocate for counter caser for patient as outpatient. Patient DKA and fluid overload related to non-compliance, continue observation in controlled environment given this re-admission. <Saji Rao - Last Filed: 05/23/18 11:54>
[2018-05-23 07:32] VITALS: BMI 18.6
[2018-05-23] MEDS: Amlodipine 10 MG TAB PO SCH (09:05)
[2018-05-23] MEDS: Insulin Glargine 15 UNITS in Pre-Filled Syringe 1 EACH SC SCH (10:44)
[2018-05-23 11:04] LABS: Anion Gap 25 mmol/L (10-20); BUN (Urea Nitrogen) 27 mg/dL (8.9-20.6); Calc. Creatinine Clearance 14 mL/min (70-130); Calcium 9.4 mg/dL (7.8-10.44); Carbon Dioxide 18 mmol/L (22-29); Chloride 102 mmol/L (98-107); Estimated GFR-MDRD 12; Glucose 92 mg/dL (70-105); Potassium 3.8 mmol/L (3.5-5.1); Sodium 141 mmol/L (136-145)
--- NOTE | 2018-05-23 11:06 | PDOC.EVN ---
Event Note - Event Note Event Note: Spoke to Dr. Gonzalez who plans to dialyze patient this AM Dr. Gonzalez explained that the increased anion gap is likely from diluting the bicarb b/c the patient does not make urine will stop insulin drip and dialyze the patient this AM -give lantus 15U - regular insulin 5U TID - check glucose q4 hrs, ACHS - mild sliding scale insulin check BMP q6 hrs <Tuan Hardwick - Last Filed: 05/23/18 11:03> Attending Addendum - Attending Addendum Date/Time: 05/23/18 1212 I personally evaluated the patient and discussed the management with Dr. Hardwick. <Saji Rao - Last Filed: 05/23/18 12:12>
[2018-05-23] MEDS ORDERED: Dextrose 5% in Water 1,000 ML IV PRN (11:12)
[2018-05-23] MEDS ORDERED: Dextrose 50% Abboject 50 ML SYRINGE SLOW IVP PRN (11:12)
--- NOTE | 2018-05-23 11:17 | CON ---
DATE OF CONSULTATION: 05/22/2018 REASON FOR CONSULTATION: Hyperkalemia. HISTORY OF PRESENT ILLNESS: This is a very pleasant 37-year-old noncompliant patient who presented t o the [facility] with DKA and hyperkalemia. The patient was dialyzed yesterday in the emergency room. The patient denies headache, numbness, tingling or weakness. Denies any nausea, vomiting, or chest pain. PAST MEDICAL HISTORY: Type 1 diabetes mellitus, hypertension, anemia, amputation, secondary hyperpar athyroidism. FAMILY HISTORY: Negative for ESRD. ALLERGIES: Reviewed. HOME MEDICATIONS: List reviewed. REVIEW OF SYSTEMS: Fifteen point review of systems was performed and negative except as above. GENERAL: Weakness- HEAD: Headache- NECK: No swelling or lumps. NOSE: No epistaxis or discharge. EYES: No diplopia or pain. RESPIRATORY: Dyspnea- CARDIOVASCULAR: Chest pain- GASTROINTESTINAL: Nausea- /TOWBOAT ENGINEER: Hematuria- MUSCULOSKELETAL: No joint pain. NEUROPSYCHIATIC SYSTEMS: No suicidal ideation. No ideation. SKIN: Denies any rash or ulcer. CONSTITUTIONAL: No fever or chills. PHYSICAL EXAMINATION: GENERAL: Patient is awake, alert. VITAL SIGNS: Afebrile, pulse 70, breathing at 16, blood pressure 163/100. OBJECTIVE: See above. Awake, alert, in no acute distress. GENERAL APPEARANCE AND MENTAL STATUS: Fair. HEAD/NECK: Normocephalic. Atraumatic. EYES: EOMI. No deformity. EARS: Clear. No ulcers. NOSE: Intact. No lesions. MOUTH: Clear. No discharge. THROAT: Clear. No exudate. LUNGS: Clear. No crackles. CARDIAC: S1, S2. No rub. ABDOMEN: Benign. BS+. GENITALIA/RECTUM: Clif[place] absent. BACK/EXTREMITIES: Edema 0+ Ulcer- NEUROLOGICAL: Alert and motor intact. SKIN: Rash- Bruise- LYMPHATICS: Edema- Ulcer- LABORATORY: Potassium was 5.6. ASSESSMENT AND RECOMMENDATIONS: 1. Stage 6 chronic kidney disease with hyperkalemia, plan dialysis. 2. Hyperkalemia. Plan dialysis. 3. Metabolic acidosis. Plan dialysis. Overall, prognosis is extremely poor.
--- NOTE | 2018-05-23 11:24 | PRG ---
DATE OF SERVICE: 05/23/2018 SUBJECTIVE: A 37-year-old male being seen for end-stage renal disease. The patient denies any nause a, vomiting or chest pain. PHYSICAL EXAMINATION: GENERAL: Patient is awake, alert. VITAL SIGNS: Afebrile, pulse 97, breathing at 16, blood pressure 134/70. HEAD/NECK: Normocephalic. Atraumatic. EYES: EOMI. No deformity. EARS: Clear. No ulcers. NOSE: Intact. No lesions. MOUTH: Clear. No discharge. THROAT: Clear. No exudate. LUNGS: Clear. No crackles. CARDIAC: S1, S2. No rub. ABDOMEN: Benign. BS+. GENITALIA/RECTUM: Clif[place] absent. BACK/EXTREMITIES: Edema 0+ Ulcer-. NEUROLOGICAL: Alert and motor intact. SKIN: Rash- Bruise- LYMPHATICS: Edema- Ulcer-. LABORATORY DATA: Show potassium 3.8. ASSESSMENT AND RECOMMENDATIONS: 1. Stage 6 chronic kidney disease. We will plan dialysis. 2. Hyperkalemia, improved. 3. Metabolic acidosis. We will plan dialysis. 4. Volume overload. We will plan dialysis. Prognosis is very poor.
[2018-05-23] MEDS: Insulin Regular 300 UNITS/3 ML VIAL SC SCH (12:45)
[2018-05-23] MEDS ORDERED: Insulin Regular 300 UNITS/3 ML VIAL SC SCH (16:30)
[2018-05-23 17:04] LABS: Anion Gap 22 mmol/L (10-20); BUN (Urea Nitrogen) 30 mg/dL (8.9-20.6); Calc. Creatinine Clearance 12 mL/min (70-130); Calcium 9.4 mg/dL (7.8-10.44); Carbon Dioxide 19 mmol/L (22-29); Chloride 102 mmol/L (98-107); Estimated GFR-MDRD 11; Glucose 211 mg/dL (70-105); Potassium 4.9 mmol/L (3.5-5.1); Sodium 138 mmol/L (136-145)
[2018-05-23 23:56] LABS: Anion Gap 16 mmol/L (10-20); BUN (Urea Nitrogen) 11 mg/dL (8.9-20.6); Calc. Creatinine Clearance 25 mL/min (70-130); Calcium 9.5 mg/dL (7.8-10.44); Carbon Dioxide 28 mmol/L (22-29); Chloride 100 mmol/L (98-107); Estimated GFR-MDRD 24; Glucose 66 mg/dL (70-105); Potassium 3.5 mmol/L (3.5-5.1); Sodium 140 mmol/L (136-145)
[2018-05-24 04:49] LABS: Anion Gap 18 mmol/L (10-20); BUN (Urea Nitrogen) 13 mg/dL (8.9-20.6); Calc. Creatinine Clearance 22 mL/min (70-130); Calcium 9.6 mg/dL (7.8-10.44); Carbon Dioxide 24 mmol/L (22-29); Chloride 99 mmol/L (98-107); Estimated GFR-MDRD 20; Glucose 241 mg/dL (70-105); Potassium 4.1 mmol/L (3.5-5.1); Sodium 137 mmol/L (136-145)
[2018-05-24] MEDS ORDERED: Insulin Regular 300 UNITS/3 ML VIAL SC SCH (07:30)
--- NOTE | 2018-05-24 07:54 | PDOC.FM ---
- Subjective Subjective: This morning patient is feeling well. His mother brought him [employer] for breakfast and he had a large orange juice, was advised that this is not helpful for his diabetes. Discussed diabetes management at length with patient and mother present. He denies pain, N/V/D this Am. - Objective MAR Reviewed: Yes Vital Signs & Weight: Vital Signs (12 hours) Temp Pulse Resp BP BP Pulse Ox 05/24/18 04:17 124/82 05/24/18 03:52 97.7 F 88 16 85/53 L 96 05/23/18 23:27 93 05/23/18 23:07 97.6 F 93 16 128/82 98 05/23/18 23:00 97.6 F 93 18 98 Weight Admit Weight 57 kg Weight 62.1 kg I&O: 05/23/18 05/24/18 05/25/18 06:59 06:59 06:59 Intake Total 400 1048.2 Balance 400 1048.2 Result Diagrams: 05/22/18 11:23 05/24/18 03:30 <Tuan Hardwick - Last Filed: 05/24/18 07:52> - Objective Vital Signs & Weight: Vital Signs (12 hours) Temp Pulse Resp BP BP Pulse Ox 05/24/18 08:00 98.0 F 91 18 135/84 98 05/24/18 07:55 88 05/24/18 04:17 124/82 05/24/18 03:52 97.7 F 88 16 85/53 L 96 05/23/18 23:27 93 Weight Admit Weight 57 kg Weight 62.1 kg I&O: 05/23/18 05/24/18 05/25/18 06:59 06:59 06:59 Intake Total 400 1048.2 360 Balance 400 1048.2 360 Result Diagrams: 05/22/18 11:23 05/24/18 03:30 <Saji Rao - Last Filed: 05/24/18 11:17> Phys Exam - Physical Examination Constitutional: NAD HEENT: PERRLA, moist MMs Neck: no nodes, full ROM Respiratory: no wheezing, clear to auscultation bilateral Cardiovascular: RRR, no significant murmur Gastrointestinal: soft, non-tender, no distention, positive bowel sounds Musculoskeletal: no edema, pulses present Neurological: non-focal r bka Psychiatric: normal affect, A&O x 3 Skin: no rash <Tuan Hardwick - Last Filed: 05/24/18 07:52> Dx/Plan (1) Diarrhea Code(s): R19.7 - DIARRHEA, UNSPECIFIED Status: Acute (2) Diabetes mellitus type 1 Code(s): E10.9 - TYPE 1 DIABETES MELLITUS WITHOUT COMPLICATIONS Status: Chronic (3) Polysubstance abuse Code(s): F19.10 - OTHER PSYCHOACTIVE SUBSTANCE ABUSE, UNCOMPLICATED Status: Chronic (4) DKA (diabetic ketoacidoses) Code(s): E13.10 - OTH DIABETES MELLITUS WITH KETOACIDOSIS WITHOUT COMA Status : Resolved (5) ESRD (end stage renal disease) on dialysis Code(s): N18.6 - END STAGE RENAL DISEASE; Z99.2 - DEPENDENCE ON RENAL DIALYSIS Status: Chronic (6) Hypertension Code(s): I10 - ESSENTIAL (PRIMARY) HYPERTENSION Status: Chronic QualifierTitle: Hypertension type: essential hypertension Qualified Code( s): I10 - Essential (primary) hypertension (7) Non-compliance with renal dialysis Code(s): Z91.15 - PATIENT'S NONCOMPLIANCE WITH RENAL DIALYSIS Status: Chronic - Plan Plan: # DKA- resolved - gap 18 - discussed diet and insulin management Hyperkalemia- resolved - urgent dialysis last night - K 4.8 this AM - will monitor with frequent BMPs # ESRD - on Dialysis MWF, had urgernt dialysis last night - has missed frequently - Dr. Gonzalez consulted # Type 1 DM -patient had lows when given insulin - proceed with 10 U lantus, 3 at each meal # HTN - home meds # Drug abuse - last time using PCP was a few days ago # Code status - full code #PPx -heparin Dispo: f/u with Dr. Hardwick at [facility] in 1-3 days <Tuan Hardwick - Last Filed: 05/24/18 07:52> Attending Addendum - Attending Addendum Date/Time: 05/24/18 1111 I personally evaluated the patient and discussed the management with Dr. Hardwick I agree with the History, Examination, Assessment and Plan documented above with any addition or exceptions noted below.Patient has reached maximum hospital benefit stable for dismissal hopefully will have closer f/u as outpatient with PCP. <Saji Rao - Last Filed: 05/24/18 11:17>
[2018-05-24] MEDS: Heparin 5,000 UNITS/ML VIAL SC SCH (07:55)
[2018-05-24] MEDS: Amlodipine 10 MG TAB PO SCH (07:55)
[2018-05-24] MEDS: hydrALAZINE 25 MG TAB PO SCH (07:55)
[2018-05-24] MEDS: Insulin Glargine 15 UNITS in Pre-Filled Syringe 1 EACH SC SCH (07:56)
[2018-05-24 08:08] VITALS: BP 135/84; TEMP 98
[2018-05-24] MEDS: Insulin Regular 300 UNITS/3 ML VIAL SC SCH (11:15)
--- NOTE | 2018-05-24 11:40 | PRG ---
DATE OF SERVICE: 05/24/2018 SUBJECTIVE: A 37-year-old male being seen for end-stage renal disease. The patient denies any nause a, vomiting or chest pain. PHYSICAL EXAMINATION: GENERAL: Patient is awake, alert. VITAL SIGNS: Afebrile, pulse 91, breathing 16, blood pressure 135/40. OBJECTIVE: See above. Awake, alert, in no acute distress. GENERAL APPEARANCE AND MENTAL STATUS: Fair. HEAD/NECK: Normocephalic. Atraumatic. EYES: EOMI. No deformity. EARS: Clear. No ulcers. NOSE: Intact. No lesions. MOUTH: Clear. No discharge. THROAT: Clear. No exudate. LUNGS: Clear. No crackles. CARDIAC: S1, S2. No rub. ABDOMEN: Benign. BS+. GENITALIA/RECTUM: [place] absent. BACK/EXTREMITIES: Edema 0+ Ulcer- NEUROLOGICAL: Alert and motor intact. SKIN: Rash- Bruise- LYMPHATICS: Edema- Ulcer- LABORATORY: Hemoglobin is 13.9, bicarbonate is 20. ASSESSMENT: 1. Stage 4 chronic kidney disease, plan hemodialysis. 2. Hypertension, stable. 3. Anemia, stable. 4. Medication based on GFR. The patient will have dialysis tomorrow at his dialysis center.
--- NOTE | 2018-05-24 20:52 | DIS-2 ---
DATE OF ADMISSION: 05/22/2018 DATE OF DISCHARGE: 05/24/2018 RESIDENT: Tuan Hardwick MD ADMITTING ATTENDING: Chela Contreras MD DISCHARGE ATTENDING: Saji Rao MD CONSULTATION: Nephrology, Dr. Gonzalez. PROCEDURES: Dialysis x3. PRIMARY DIAGNOSIS: Diabetic ketoacidosis. SECONDARY DIAGNOSES: Medical noncompliance, type 1 diabetes, polysubstance abuse, end-stage renal disease, hypertension. DISCHARGE MEDICATIONS: Lantus 10 units daily, Humalog 3 units with meals, mild sliding scale, cinacalcet 30 mg daily, amlodipine 10 mg daily, hydralazine 25 mg 3 times daily, sertraline 25 mg daily, sevelamer 800 mg t.i.d. DISCONTINUED MEDICATIONS: None. HISTORY OF PRESENT ILLNESS AND HOSPITAL COURSE: This is a 37-year-old male who presented to the ER after receiving emergent dialysis the night before for hyperkalemia of 8.8. He presented the following afternoon stating he "did not feel quite right." He could not characterize any specific pain. He stated that he had a nonspecific dizziness. He said that the room was spinning at times for a few seconds, but then he would feel better. He was having persistent soft diarrhea 3 or 4 times a day. No blood in the stool. The patient stated that when he went home from the ER the night before, he ate [employer] on the way home. The patient was found to be in diabetic ketoacidosis. Dr. Gonzalez was consulted and opted for urgent dialysis rather than using an insulin drip to close the gap. The patient had another round of dialysis the following morning. It was clear that the patient was not taking his insulin at home, did not understand his regimen. The regimen was simplified. So, he is to take 10 units of Lantus every morning and 3 units of Humalog at each meal, and there is sliding scale for highs, which he and his mother understand. The patient states that he understands that if he keeps skipping dialysis, he will soon. The patient is instructed to follow up at [facility] and quit using illicit drugs. DISPOSITION: Stable, guarded long-term outlook. DISCHARGE INSTRUCTIONS: 1. Location: Home. 2. Diet: Diabetic, renal. 3. Activity: As tolerated. 4. Follow up Dr. Tuan Hardwick at [facility]. The patient is instructed to bring glucose log. I suspect he may need to titrate up insulin. The patient had many lows in the hospital when the nurses were giving insulin, he obviously was not taking it at home, so this was titrated down in the hospital. Check UDS and A1c to establish new baseline in a few weeks, as the patient has not been using his insulin consistently. Referral for diabetic education and resources. [place]
== END 2018-05-24 12:44 | disposition home or self-care (01) | DRG 637 ==
LOC: ERS 10:58 → T4-A 18:29 → IMCU/EMU 18:32 → T4-A 22:48 → IMCU/EMU 05-23 07:08 → T4-A 05-23 14:35
PROVIDERS: ADMIT Student in an Organized Health Care Education/Training Program; ATTEND Student in an Organized Health Care Education/Training Program
DX: E10.10 Type 1 diabetes mellitus with ketoacidosis without coma (principal); N18.6 End stage renal disease; N25.81 Secondary hyperparathyroidism of renal origin; I12.0 Hypertensive chronic kidney disease with stage 5 chronic kidney disease or end stage renal disease; E10.22 Type 1 diabetes mellitus with diabetic chronic kidney disease; Z99.2 Dependence on renal dialysis; E87.5 Hyperkalemia; Z91.15 Patient's noncompliance with renal dialysis; F19.10 Other psychoactive substance abuse, uncomplicated
CPT/HCPCS: 36415; 36416; 70450; 71045; 80048; 80053; 82010; 82330; 82553; 82803; 83735; 84100; 84484; 85025; 90935; 93005; 96361; 96365; 96366; A4216; G0257; J0360; J1644; J1815; J7050

== ENCOUNTER 2018-05-28 21:01 | Emergency (ER) | payer MEDICARE, OTHER ==
[2018-05-28 23:07] LABS: Hemoglobin 12.6 g/dL (14.0-18.0); Mean Corpuscular HGB CONC 35.3 g/dL (32.0-36.0); Mean Corpuscular Hemoglobin 29.8 pg (27.0-31.0); Mean Corpuscular Volume 84.6 fL (78.0-98.0); RBC Distribution Width 15.5 % (11.5-14.5); Red Blood Cell (RBC) Count 4.24 mill/uL (4.70-6.10); White Blood Cell (WBC) Count 5.4 thou/uL (4.8-10.8)
[2018-05-28 23:21] LABS: #Basophils 0.1 thou/uL (0.0-0.2); #Eosinphils 0.2 thou/uL (0.0-0.7); #Lymphocytes 1.8 thou/uL (1.20-3.40); #Monocytes 0.5 thou/uL (0.11-0.59); #Neutrophils 2.9 thou/uL (1.40-6.50); %Eosinophils 3.1 % (0.0-10.0); %Lymphocytes 33.9 % (21.0-51.0); %Monocytes 8.5 % (0.0-10.0); %Neutrophils 53.6 % (42.0-75.0); Mean Platelet Volume 10.9 fL (7.4-10.4); PLT Morphology Comment Appears Decreased; Platelet Count 106 thou/uL (130-400); RBC Morphology Normal
[2018-05-28 23:24] LABS: ALT (SGPT) 18 U/L (8-55); AST (SGOT) 21 U/L (5-34); Albumin 3.9 g/dL (3.5-5.0); Alkaline Phosphatase 125 U/L (40-150); Anion Gap 21 mmol/L (10-20); BUN (Urea Nitrogen) 37 mg/dL (8.9-20.6); Bilirubin, Total 0.5 mg/dL (0.2-1.2); Calc. Creatinine Clearance 0 mL/min (70-130); Carbon Dioxide 22 mmol/L (22-29); Chloride 102 mmol/L (98-107); Estimated GFR-MDRD 10; Globulin 3.6 g/dL (2.4-3.5); Glucose 156 mg/dL (70-105); Potassium 4.5 mmol/L (3.5-5.1); Protein, Total 7.5 g/dL (6.0-8.3); Sodium 140 mmol/L (136-145)
[2018-05-28 23:27] LABS: Troponin I Less than 0.010 ng/mL (< 0.028)
--- NOTE | 2018-06-09 11:14 | EKG ---
Test Reason : Blood Pressure : / mmHG Vent. Rate : 086 BPM Atrial Rate : 086 BPM P-R Int : 124 ms QRS Dur : 080 ms QT Int : 362 ms P-R-T Axes : 071 047 093 degrees QTc Int : 433 ms Normal sinus rhythm Possible Left atrial enlargement Nonspecific T wave abnormality Abnormal ECG Confirmed by TOMI SANDRA DO ([id number]), assistant film editor ABRIL VAZQUEZ ([id number]) on 06/09/2018 11:14:12 AM Referred By: Confirmed By:TOMI SANDRA DO
== END 2018-05-29 00:19 | disposition home or self-care (01) ==
LOC: ERS 21:01
DX: R53.1 Weakness (principal); E78.5 Hyperlipidemia, unspecified; I12.0 Hypertensive chronic kidney disease with stage 5 chronic kidney disease or end stage renal disease; E11.22 Type 2 diabetes mellitus with diabetic chronic kidney disease; N18.6 End stage renal disease; F17.210 Nicotine dependence, cigarettes, uncomplicated; Z99.2 Dependence on renal dialysis; Z86.73 Personal history of transient ischemic attack (TIA), and cerebral infarction without residual deficits; Z79.899 Other long term (current) drug therapy
CPT/HCPCS: 36415; 80053; 82553; 84484; 85025; 93005

== ENCOUNTER 2018-05-29 05:55 | Emergency (ER) | payer MEDICARE, MEDICAID ==
[2018-05-29 07:01] LABS: Base Excess-Venous 2.1 mmol/L (0 (+/- 2.5)); Bicarbonate (HCO3v) 28.3 mmol/L (1.0-85.0); CO2 Tension (PvCO2) 49.3 mmHg (41.0-51.0); Calcium, Ionized 1.03 mmol/L (1.12-1.32); O2 Tension (PvO2) 83.7 mmHg (35.0-45.0); Potassium 4.7 mmol/L (3.4-4.7); T. Carbon Dioxide 29.8 mmol/L (1.0-85.0); pH (Venous) 7.367 (7.35-7.45); vO2 Saturation-calc 95.7 % (94-98)
[2018-05-29 07:02] LABS: #Eosinphils 0.2 thou/uL (0.0-0.7); #Lymphocytes 1.7 thou/uL (1.20-3.40); #Monocytes 0.4 thou/uL (0.11-0.59); #Neutrophils 2.5 thou/uL (1.40-6.50); %Basophils 0.6 % (0.0-1.0); %Eosinophils 3.7 % (0.0-10.0); %Lymphocytes 35.2 % (21.0-51.0); %Monocytes 8.7 % (0.0-10.0); Mean Corpuscular HGB CONC 34.4 g/dL (32.0-36.0); Mean Corpuscular Hemoglobin 29.3 pg (27.0-31.0); Mean Corpuscular Volume 85.4 fL (78.0-98.0); Mean Platelet Volume 11.6 fL (7.4-10.4); Platelet Count 113 thou/uL (130-400); RBC Distribution Width 15.6 % (11.5-14.5); Red Blood Cell (RBC) Count 4.43 mill/uL (4.70-6.10); White Blood Cell (WBC) Count 4.7 thou/uL (4.8-10.8)
[2018-05-29 08:38] LABS: Calcium 9.3 mg/dL (7.8-10.44); Chloride 100 mmol/L (98-107); Magnesium 2.4 mg/dL (1.6-2.6); Potassium 4.2 mmol/L (3.5-5.1); Sodium 139 mmol/L (136-145)
[2018-05-29 08:39] LABS: Glucose 484 mg/dL (70-105)
[2018-05-29 08:40] LABS: Globulin 3.5 g/dL (2.4-3.5); Protein, Total 7.5 g/dL (6.0-8.3)
[2018-05-29 08:41] LABS: Anion Gap 21 mmol/L (10-20); Bilirubin, Total 0.6 mg/dL (0.2-1.2); Carbon Dioxide 22 mmol/L (22-29)
[2018-05-29 08:42] LABS: Alkaline Phosphatase 144 U/L (40-150); Phosphorus 3.8 mg/dL (2.3-4.7)
[2018-05-29 08:43] LABS: Calc. Creatinine Clearance 0 mL/min (70-130); Estimated GFR-MDRD 9
[2018-05-29 08:44] LABS: AST (SGOT) 17 U/L (5-34); BUN (Urea Nitrogen) 42 mg/dL (8.9-20.6)
[2018-05-29 08:45] LABS: ALT (SGPT) 19 U/L (8-55)
== END 2018-05-29 10:06 | disposition home or self-care (01) ==
LOC: ERS 05:55
DX: E11.65 Type 2 diabetes mellitus with hyperglycemia (principal); I12.0 Hypertensive chronic kidney disease with stage 5 chronic kidney disease or end stage renal disease; E11.22 Type 2 diabetes mellitus with diabetic chronic kidney disease; N18.6 End stage renal disease; F17.210 Nicotine dependence, cigarettes, uncomplicated; E78.5 Hyperlipidemia, unspecified; Z99.2 Dependence on renal dialysis; Z86.73 Personal history of transient ischemic attack (TIA), and cerebral infarction without residual deficits; Z79.4 Long term (current) use of insulin; Z79.899 Other long term (current) drug therapy; Z71.6 Tobacco abuse counseling
CPT/HCPCS: 36415; 36416; 80053; 82010; 82330; 82553; 82803; 83735; 84100; 84484; 85025; 93005; 96374; 96376; 99406

== ENCOUNTER 2018-06-02 14:54 | Inpatient (IN) | payer MEDICARE, MEDICAID ==
[2018-06-02 15:53] LABS: #Basophils 0.1 thou/uL (0.0-0.2); #Eosinphils 0.1 thou/uL (0.0-0.7); #Lymphocytes 1.1 thou/uL (1.20-3.40); #Monocytes 0.5 thou/uL (0.11-0.59); #Neutrophils 2.5 thou/uL (1.40-6.50); %Basophils 1.2 % (0.0-1.0); %Eosinophils 2.2 % (0.0-10.0); %Monocytes 11.6 % (0.0-10.0); Hemoglobin 13.3 g/dL (14.0-18.0); Mean Corpuscular HGB CONC 32.7 g/dL (32.0-36.0); Mean Corpuscular Hemoglobin 29.1 pg (27.0-31.0); Mean Corpuscular Volume 88.9 fL (78.0-98.0); Mean Platelet Volume 11.2 fL (7.4-10.4); Platelet Count 93 thou/uL (130-400); RBC Distribution Width 15.3 % (11.5-14.5); Red Blood Cell (RBC) Count 4.59 mill/uL (4.70-6.10); White Blood Cell (WBC) Count 4.2 thou/uL (4.8-10.8)
[2018-06-02 15:56] LABS: Bicarbonate (HCO3v) 27.7 mmol/L (1.0-85.0); CO2 Tension (PvCO2) 41.6 mmHg (41.0-51.0); Calcium, Ionized 0.87 mmol/L (1.12-1.32); Hemoglobin - Calc 14.6 g/dL (12.0-18.0); O2 Tension (PvO2) 50.4 mmHg (35.0-45.0); Potassium 4.5 mmol/L (3.4-4.7); T. Carbon Dioxide 28.9 mmol/L (1.0-85.0); pH (Venous) 7.431 (7.35-7.45); vO2 Saturation-calc 86.2 % (94-98)
[2018-06-02 16:09] LABS: ALT (SGPT) 15 U/L (8-55); AST (SGOT) 14 U/L (5-34); Albumin 4.1 g/dL (3.5-5.0); Alkaline Phosphatase 172 U/L (40-150); Anion Gap 15 mmol/L (10-20); BUN (Urea Nitrogen) 32 mg/dL (8.9-20.6); Bilirubin, Total 0.7 mg/dL (0.2-1.2); Calc. Creatinine Clearance 0 mL/min (70-130); Calcium 8.8 mg/dL (7.8-10.44); Carbon Dioxide 29 mmol/L (22-29); Chloride 87 mmol/L (98-107); Estimated GFR-MDRD 12; Globulin 3.5 g/dL (2.4-3.5); Magnesium 2.1 mg/dL (1.6-2.6); Phosphorus 4.4 mg/dL (2.3-4.7); Potassium 4.7 mmol/L (3.5-5.1); Protein, Total 7.6 g/dL (6.0-8.3); Sodium 126 mmol/L (136-145)
[2018-06-02] MEDS ORDERED: Insulin Regular 300 UNITS/3 ML VIAL ONE (16:26)
[2018-06-02 16:39] LABS: Glucose 895 mg/dL (70-105)
--- NOTE | 2018-06-02 19:09 | PDOC.FPRHP ---
- History of Present Illness Chief Complaint: dizziness History of Present Illness: Patient is a 37YO AAM with a h/o poorly controlled DMI, ESRD on MWF dialysis, & a h/o CVA x 2 who was brought to the ED today by his mother due to seizures that she reports have been ongoing for the past week. The patient is a poor historian who could not report much of what lead to his hospitalization other than the fast that he had a seizure earlier today during which he fell out of his wheelchair and lost consciousness and control of his bowels. Per mom, today , Monday, and a couple of days ago the patient had 3 episodes of what she reports to be seizures. She reports that during these "seizures" the patient had jerking, tonic-clonic like movements in of all four of his extremities causing him to fall out of his wheelchair. The mother says they each lasted only about 10 seconds and afterwards the patient was fully lucid with no postictal confusion. She also did not report any loss of bowel control during these episodes as the patient reported. The mother denies any history of a previously diagnosed seizure disorder and reports that the patient has had only one seizure prior to these episodes several years ago 2/2 hypoglycemia. Regarding the patient's diabetes. The patient in unable to recall his home insulin regimen as his mother takes care of all of his medicines for him. He states that his last home BG level read as HIGH on the glucometer ad was taken after his last seizure today which was also reported by his mother. He states that he normally checks his BG 2-3x/day at home and states he is compliant with his medications. However, he was just recently discharged after being admitted and treated for DKA. The patient admits to using PCP and marijuana and states he last used PCP 3 days ago and used marijuana today. He denies any N/V or abdominal pain. Does endorse some confusion and dizziness that he says had improved since getting to the hospital. ED Course: Patient was given 15 units of insulin in the ED. - Allergies/Adverse Reactions Allergies Allergy/AdvReac Type Severity Reaction Status Date / Time Penicillins Allergy Unknown Verified 06/02/18 19:42 - Home Medications Medication Instructions Recorded Confirmed Type Sevelamer Carbonate [Renvela] 3 tab PO TID-WM 09/08/15 06/02/18 History Amlodipine Besylate [amLODIPine 10 mg PO DAILY 09/02/16 06/02/18 History Besylate] Cinacalcet HCl [Sensipar] 60 mg PO DAILY 09/02/16 06/02/18 History hydrALAZINE [Apresoline] 25 mg PO TID 09/02/16 06/02/18 History Sertraline HCl 25 mg PO DAILY 03/03/17 06/02/18 History HumaLOG [HumaLOG Vial] 3 unit SC TID-WM PRN #0 05/24/18 06/02/18 Rx Insulin Glargine [Lantus Vial] 10 units SC QAM 30 Days #1 vial 05/24/18 Rx - History PMHx: poorly controlled DMI, HTN, HLD, chronic diarrhea, h/o CVA x 2, ESRD on MWF hemodialysis, normocytic anemia, CHF w/ preserved EF PSHx: R bka FHx: none. Social: Drinks liquor once every few months. Uses marijuana & last smoked yesterday. Smoke 5-10 cigarettes/day since he was 13. Uses PCP a few times a month. Last used 2 days ago. - Review of Systems General: denies: fever/chills Eyes: denies: eye pain, vision changes ENT: denies: nasal congestion Respiratory: denies: cough, shortness of breath Cardiovascular: denies: chest pain Gastrointestinal: reports: diarrhea. denies: nausea, vomiting, constipation, abdominal pain Genitourinary: reports: other (Patient is unable to make urine.). denies: incontinence Skin: denies: rashes, lesions Musculoskeletal: denies: pain, swelling Neurological: reports: seizure. denies: numbness, weakness - Vital signs BP: 164/77 HR: 91 RR: 22 Tmax: 97.4 Pox: 98% on RA Wt: 65.062kg - Physical Exam Constitutional: NAD, awake, alert and oriented HEENT: normocephalic and atraumatic, grossly normal vision (Pupils fixed and constricted bilaterally. Horizontal nystagmus present.), oropharynx clear Neck: supple, no LAD Heart: RRR, normal S1/S2, other (nonpitting edema in LLE. Pulses present.) Lungs: CTAB, no respiratory distress, good air movement Abdomen: soft, non-tender, bowel sounds present Musculoskeletal: ROM grossly normal -Musculoskeletal: right sided BKA Neurological: no focal deficit, CN II-XII intact, normal sensation Skin: no rash/lesions, good turgor Heme/Lymphatic: no unusual bruising or bleeding Psychiatric: normal mood and affect (Poor recent and remote memory. Oriented to person and place. Not day or time.) FMR H&P: Results - Labs Result Diagrams: 06/03/18 02:16 06/03/18 05:27 Lab results: WBC 4.2 thou/uL (4.8-10.8) L 06/02/18 15:40 Hgb 13.3 g/dL (14.0-18.0) L 06/02/18 15:40 Hct 40.8 % (42.0-52.0) L 06/02/18 15:40 MCV 88.9 fL (78.0-98.0) 06/02/18 15:40 Plt Count 93 thou/uL (130-400) L 06/02/18 15:40 Neutrophils % 59.0 % (42.0-75.0) 06/02/18 15:40 VBG pCO2 41.6 mmHg (41.0-51.0) 06/02/18 15:51 VBG pO2 50.4 mmHg (35.0-45.0) H 06/02/18 15:51 Sodium 126 mmol/L (136-145) L 06/02/18 15:40 Potassium 4.7 mmol/L (3.5-5.1) 06/02/18 15:40 Chloride 87 mmol/L (98-107) L 06/02/18 15:40 Carbon Dioxide 29 mmol/L (22-29) 06/02/18 15:40 BUN 32 mg/dL (8.9-20.6) H 06/02/18 15:40 Creatinine 6.31 mg/dL (0.6-1.3) H 06/02/18 15:40 Glucose 895 mg/dL (70-105) H* 06/02/18 15:40 Calcium 8.8 mg/dL (7.8-10.44) 06/02/18 15:40 Total Bilirubin 0.7 mg/dL (0.2-1.2) 06/02/18 15:40 AST 14 U/L (5-34) 06/02/18 15:40 ALT 15 U/L (8-55) 06/02/18 15:40 Alkaline Phosphatase 172 U/L (40-150) H 06/02/18 15:40 B-Natriuretic Peptide 143.1 pg/mL (0-100) H 06/02/18 15:40 Serum Total Protein 7.6 g/dL (6.0-8.3) 06/02/18 15:40 Albumin 4.1 g/dL (3.5-5.0) 06/02/18 15:40 FMR H&P: A/P - Problem List (1) Hyperglycemia due to type 1 diabetes mellitus Current Visit: Yes Status: Acute Code(s): E10.65 - TYPE 1 DIABETES MELLITUS WITH HYPERGLYCEMIA (2) ESRD (end stage renal disease) on dialysis Current Visit: Yes Status: Chronic Code(s): N18.6 - END STAGE RENAL DISEASE ; Z99.2 - DEPENDENCE ON RENAL DIALYSIS (3) Hypertension Current Visit: Yes Status: Chronic Code(s): I10 - ESSENTIAL (PRIMARY) HYPERTENSION Qualifiers: Hypertension type: essential hypertension Qualified Code(s): I10 - Essential (primary) hypertension (4) HLD (hyperlipidemia) Current Visit: Yes Status: Chronic Code(s): E78.5 - HYPERLIPIDEMIA, UNSPECIFIED (5) Diastolic CHF Current Visit: Yes Status: Chronic Code(s): I50.30 - UNSPECIFIED DIASTOLIC ( CONGESTIVE) HEART FAILURE Qualifiers: (6) Polysubstance abuse Current Visit: Yes Status: Chronic Priority: Low Code(s): F19.10 - OTHER PSYCHOACTIVE SUBSTANCE ABUSE, UNCOMPLICATED (7) Normocytic anemia, not due to blood loss Current Visit: Yes Status: Acute Priority: Low Code(s): D64.9 - ANEMIA, UNSPECIFIED (8) Diarrhea Current Visit: Yes Status: Acute Code(s): R19.7 - DIARRHEA, UNSPECIFIED (9) Tobacco abuse Current Visit: Yes Status: Acute Code(s): Z72.0 - TOBACCO USE - Plan Disposition/LOS: 37 YO AAM w/ PMH of poorly controlled DMI, ESRD on hemodialysis, and polysubstance abuse who presents to the ED complaining of seizures. 1. HHS vs. DKA: - Patient is not acidotic with presenting pH of 7.4 with a BG level of 895. Ketones are elevated at 1.73 & AG is elevated at 23 when Na level is corrected. - Repeat BMP shows persistent AG and BG level of 762. - Will start on insulin drip and recheck BMP every 4 hours to monitor AG & BG levels. - Also restarting home lantus dose of 10 units. 2. h/o reported seizures: - Could be 2/ polysubstance abuse vs. hypoglycemia vs. undiagnosed seizure disorder. - Treating hyperglycemia as described above. Will order an EEG. UDS & serum drug screen pending. 3. DMI - Will resume home lantus but will hold other meds until BG levels are under control and patient is off insulin drip. 4. ESRD on hemodialysis: - Patient was last dialyzed yesterday. - Will consult nephro in the AM. - Will resume home meds. 5. Normocytic anemia: - Aware. Likely 2/2 ESRD. 6. HTN: - Aware. - Will resume home meds. 7. HLD: - Aware. Will resume home meds. 8. h/o CVA x 2: - Aware. - Will start on heparin for VTE Ppx. - Will resume home meds. 9. CHF with preserved EF. - Aware. - Will resume home meds. 10. h/o tobacco use. - Aware. - Will counselor/art therapist on need to quit. 11. h/o polysubstance abuse: - UDS & SDS pending. - Will counselor/art therapist on need to quit. FMR H&P: Upper Level - Pertinent history Mr Brush is a 37 year old male with a history of diabetes mellitus type 1 , PVD with R. BKA, ESRD on HD, and polysubstance abuse who presented to the ED due to seizure activity. Pt is a poor historian, and most of the history was obtained from his Mom. Per pt's Mom, patient was sitting in his powerchair when he began to complain of not feeling well and feeling dizzy and weak. He suddenly fell to the floor and started to seize. She described the activity as jerking of his arms and legs with his eyes closed. She states that after a period of 10 seconds he "woke up as if nothing happened." He had an additional 2 seizures today. When she checked his blood sugar it read "high." Per patient' s Mom, Pt has has been having seizures for the past 1 week. She sates that he had 3 seizures on 05/29/18. He has had a seizure several years ago related to hypoglycemia. He has not had treatment or evaluation for seizures otherwise. Pt states that his mother helps him with his medications. He denies noncompliance. He admits to use of marijuana and PCP. - Pertinent findings Initial blood sugar: 895 VBG pH: 7.4 B-OHB: 1.73 - Plan Date/Time: 06/02/18 1907 I, Jaylene Paz, have evaluated this patient and agree with findings/plan as outlined by test engineering intern resident. Pertinent changes/additions are listed here. 1. Hyperosmolar hyperglycemic state - we will transfer pt to [facility] as an inpatient - insulin drip - q4H BMP - q1H accuchecks. - electrolyte replacement as needed. 2. Seizure activity - seizure precautions. - Pt will need EEG to determine epileptic activity vs. hyperglycemia, vs drug abuse 3. Peripheral vascular disease - continue home meds - s/p R. BKA 4. ESRD on HD - consult nephro in AM - HD MWF - renal diet - home meds 5. Polysubstance Abuse - counseling 6. Tobacco abuse - counseling 7. Hypertension - resume home meds DVT prophylaxis: Heparin Attending Addendum - Attending Addendum Date/Time: 06/03/18 1246 I personally evaluated the patient and discussed the management with Dr. Chang last night at time of admission, 06/02/18. I agree with the History, Examination, Assessment and Plan documented above with any addition or exceptions noted below.
[2018-06-02] MEDS ORDERED: Dextrose 5% in Water 1,000 ML IV PRN ×2 (19:11→21:50)
[2018-06-02] MEDS ORDERED: Dextrose 50% Abboject 50 ML SYRINGE IVP PRN ×2 (19:11→21:50)
[2018-06-02] MEDS ORDERED: Insulin Regular 300 UNITS/3 ML VIAL SC PRN (19:11)
[2018-06-02 19:53] LABS: Anion Gap 18 mmol/L (10-20); BUN (Urea Nitrogen) 34 mg/dL (8.9-20.6); Calc. Creatinine Clearance 14 mL/min (70-130); Calcium 8.6 mg/dL (7.8-10.44); Carbon Dioxide 23 mmol/L (22-29); Chloride 90 mmol/L (98-107); Estimated GFR-MDRD 12; Potassium 4.4 mmol/L (3.5-5.1); Sodium 127 mmol/L (136-145)
[2018-06-02 19:55] LABS: Glucose 762 mg/dL (70-105)
[2018-06-02] MEDS ORDERED: Insulin Glargine 10 UNITS in Pre-Filled Syringe 1 EACH SC SCH (21:15)
--- NOTE | 2018-06-02 22:09 | PDOC.EVN ---
Event Note - Event Note Event Note: Date/Time: 06/02/182203 I personally evaluated the patient and discussed the management with Dr. Chang I agree with the History, Examination, Assessment and Plan as discussed. H&P is pending. I will review and sign when available. Silvestre has Hyperglycemia with a gap acidosis superimposed on a chronic metabolic alkolosis. overall he is not acidotic. He has some ketosis. He requires fluid replacement adn insulin therapy. He is very pleasant but a poor historian. He reports compliance with insulin but alos that he has been using PCP and Marajuana. His glucose and response to insulin in the ER would suggest noncompliance. IV access is being established by [facility] nurse. Insulin drip planned. restart basal long acting insulin therapy. Electrolyte replacement as needed.
[2018-06-02 23:04] LABS: Anion Gap 16 mmol/L (10-20); BUN (Urea Nitrogen) 36 mg/dL (8.9-20.6); Calc. Creatinine Clearance 14 mL/min (70-130); Calcium 8.8 mg/dL (7.8-10.44); Carbon Dioxide 29 mmol/L (22-29); Chloride 90 mmol/L (98-107); Estimated GFR-MDRD 11; Glucose 537 mg/dL (70-105); Potassium 4.1 mmol/L (3.5-5.1); Sodium 131 mmol/L (136-145)
[2018-06-02 23:06] LABS: Acetaminophen Less than 6.0 mcg/mL (10.0-30.0); Alcohol Less than 10 mg/dL (Less than 10); Salicylate Less than 8.0 mg/dL (15.0-30.0)
[2018-06-03 01:40] LABS: Anion Gap 19 mmol/L (10-20); BUN (Urea Nitrogen) 36 mg/dL (8.9-20.6); Calc. Creatinine Clearance 14 mL/min (70-130); Calcium 8.9 mg/dL (7.8-10.44); Carbon Dioxide 23 mmol/L (22-29); Chloride 92 mmol/L (98-107); Estimated GFR-MDRD 11; Glucose 450 mg/dL (70-105); Potassium 4.2 mmol/L (3.5-5.1); Sodium 130 mmol/L (136-145)
[2018-06-03] MEDS ORDERED: Dextrose 5% in Water 1,000 ML IV PRN (02:46)
[2018-06-03] MEDS ORDERED: Dextrose 50% Abboject 50 ML SYRINGE SLOW IVP PRN (02:46)
[2018-06-03 02:49] LABS: #Eosinphils 0.1 thou/uL (0.0-0.7); #Lymphocytes 1.5 thou/uL (1.20-3.40); #Monocytes 0.6 thou/uL (0.11-0.59); #Neutrophils 3.7 thou/uL (1.40-6.50); %Basophils 0.3 % (0.0-1.0); %Eosinophils 1.9 % (0.0-10.0); %Lymphocytes 25.1 % (21.0-51.0); %Monocytes 9.5 % (0.0-10.0); %Neutrophils 63.2 % (42.0-75.0); Hemoglobin 12.3 g/dL (14.0-18.0); Mean Corpuscular HGB CONC 34.7 g/dL (32.0-36.0); Mean Corpuscular Hemoglobin 29.3 pg (27.0-31.0); Mean Corpuscular Volume 84.3 fL (78.0-98.0); Platelet Count 98 thou/uL (130-400); RBC Distribution Width 15.2 % (11.5-14.5); Red Blood Cell (RBC) Count 4.19 mill/uL (4.70-6.10); White Blood Cell (WBC) Count 5.8 thou/uL (4.8-10.8)
[2018-06-03 03:00] LABS: Anion Gap 17 mmol/L (10-20); BUN (Urea Nitrogen) 36 mg/dL (8.9-20.6); Calc. Creatinine Clearance 14 mL/min (70-130); Calcium 9.1 mg/dL (7.8-10.44); Carbon Dioxide 26 mmol/L (22-29); Chloride 93 mmol/L (98-107); Estimated GFR-MDRD 11; Glucose 336 mg/dL (70-105); Sodium 132 mmol/L (136-145)
[2018-06-03 05:52] LABS: Anion Gap 16 mmol/L (10-20); BUN (Urea Nitrogen) 37 mg/dL (8.9-20.6); Calc. Creatinine Clearance 13 mL/min (70-130); Calcium 9.1 mg/dL (7.8-10.44); Carbon Dioxide 26 mmol/L (22-29); Chloride 96 mmol/L (98-107); Estimated GFR-MDRD 11; Glucose 80 mg/dL (70-105); Potassium 3.6 mmol/L (3.5-5.1); Sodium 134 mmol/L (136-145)
[2018-06-03] MEDS ORDERED: HumaLOG 300 UNITS/3 ML VIAL SC SCH (08:00)
[2018-06-03] MEDS ORDERED: Insulin Glargine 10 UNITS in Pre-Filled Syringe 1 EACH SC SCH (09:00)
[2018-06-03] MEDS ORDERED: Heparin 10,000 UNITS/ 10 ML VIAL ONE (09:00)
[2018-06-03] MEDS: Sevelamer Carbonate 800 MG TAB PO SCH ×3 (09:23→18:20)
[2018-06-03] MEDS: Amlodipine 10 MG TAB PO SCH (09:24)
[2018-06-03] MEDS: hydrALAZINE 25 MG TAB PO SCH ×3 (09:24→20:30)
[2018-06-03] MEDS: Cinacalcet HCl 30 MG TAB PO SCH (09:24)
[2018-06-03] MEDS: Heparin 5,000 UNITS/ML VIAL SC SCH ×3 (09:25→20:30)
[2018-06-03] MEDS: HumaLOG 300 UNITS/3 ML VIAL SC SCH ×3 (09:25→18:24)
[2018-06-03 09:43] LABS: Acetaminophen Less than 6.0 mcg/mL (10.0-30.0); Alcohol Less than 10 mg/dL (Less than 10); Salicylate Less than 8.0 mg/dL (15.0-30.0)
[2018-06-03] MEDS: HumaLOG 300 UNITS/3 ML VIAL SC PRN (11:50)
--- NOTE | 2018-06-03 15:30 | CON ---
DATE OF CONSULTATION: 06/03/2018 CONSULTING PHYSICIAN: Family practice. IMPRESSION: 1. Convulsions. 2. End-stage renal disease. 3. Hypertension. 3. Diabetes. 4. Peripheral vascular disease. PLAN: 1. Keppra 500 mg twice a day. 2. Office followup. HISTORY OF PRESENT ILLNESS: Mr. Brush is a 37-year-old man with multiple medical problems. He reports, over the last few days, he has had episodes where he loses consciousness and finds that he has fallen from his wheelchair. He reportedly has had some convulsive movements associated with thes e. He does not report any headache, nausea, vomiting, chest pain, or shortness of breath associated with them. He does feel somewhat tired afterward. He had a CT scan of the brain done last month, wh ich was unremarkable. He admits to doing PCP as well as marijuana. PAST MEDICAL HISTORY: As listed above. ALLERGIES: None reported. SOCIAL HISTORY: Positive for drug use. FAMILY HISTORY: Noncontributory. REVIEW OF SYSTEMS: No complaint of headache, nausea, vomiting, vertigo, double vision, lateralized w eakness, or numbness. PHYSICAL EXAMINATION: GENERAL: He is a well-nourished, middle-aged man sitting up in the bed. HEENT: Pupils equal and reactive. Conjunctivae are clear. Oropharynx clear. NECK: Supple. EXTREMITIES: Bilateral lower extremity amputations. NEUROLOGIC EXAM: He is alert and appropriate. His speech is fluent and clear. His exam is, otherwi se, nonfocal. LABORATORY STUDIES: Reviewed. SUMMARY: This is a 37-year-old man with multiple medical issues, who reportedly has had some convuls ions for the last few days, maybe related to his PCP, so I have stressed to him that he needs to disc ontinue this. I would go ahead and start him on Keppra given his multiple risk factors for seizures. I will be happy to follow up with him in the office if needed.
--- NOTE | 2018-06-03 15:35 | PDOC.FM ---
- Subjective Subjective: Today patient states he is feeling well. He was hungry this AM and ready to eat. Discussed barriers to dialysis. Patient states he missed "1 or 2" this week. Denies issues with transportation. States "he just does not make it." Patient continues to use drugs, asked where he gets them from, states "o you know, around." Patient states he is not afraid to but he does not want to . Discussed his prognosis if he continues to use drugs and skip dialysis, he is in understanding. - Objective MAR Reviewed: Yes Vital Signs & Weight: Vital Signs (12 hours) Temp Pulse Resp BP Pulse Ox 06/03/18 11:55 96.4 F L 99 24 H 127/67 100 06/03/18 09:24 112 H 06/03/18 08:17 98.0 F 112 H 24 H 06/03/18 07:35 98.0 F 112 H 24 H 167/84 H 91 L 06/03/18 04:18 99.4 F 81 18 132/65 97 Weight Weight 65.062 kg I&O: 06/02/18 06/03/18 06/04/18 06:59 06:59 06:59 Intake Total 39 Balance 39 Result Diagrams: 06/03/18 02:16 06/03/18 05:27 <Tuan Hardwick - Last Filed: 06/03/18 15:32> - Objective Vital Signs & Weight: Vital Signs (12 hours) Temp Pulse Resp BP Pulse Ox 06/04/18 11:50 99.1 F 97 16 122/66 100 06/04/18 08:20 95 06/04/18 08:00 97.9 F 95 18 104/59 L 99 06/04/18 04:00 99.5 F 95 16 125/68 95 Weight Weight 65.062 kg I&O: 06/03/18 06/04/18 06/05/18 06:59 06:59 06:59 Intake Total 39 Balance 39 Result Diagrams: 06/04/18 04:00 06/04/18 04:00 <Chito Novak - Last Filed: 06/04/18 14:02> Phys Exam - Physical Examination Constitutional: NAD HEENT: PERRLA, moist MMs Respiratory: no wheezing, clear to auscultation bilateral Cardiovascular: RRR 2/6 systolic murmur Gastrointestinal: soft, non-tender, no distention, positive bowel sounds Musculoskeletal: no edema Neurological: non-focal Psychiatric: A&O x 3 Skin: no rash, cap refill <2 seconds <Tuan Hardwick - Last Filed: 06/03/18 15:32> Dx/Plan (1) Tobacco abuse Code(s): Z72.0 - TOBACCO USE Status: Acute (2) Diastolic CHF Code(s): I50.30 - UNSPECIFIED DIASTOLIC (CONGESTIVE) HEART FAILURE Status: Chronic (3) ESRD (end stage renal disease) on dialysis Code(s): N18.6 - END STAGE RENAL DISEASE; Z99.2 - DEPENDENCE ON RENAL DIALYSIS Status: Chronic (4) Hypertension Code(s): I10 - ESSENTIAL (PRIMARY) HYPERTENSION Status: Chronic Qualifiers: Hypertension type: essential hypertension Qualified Code(s): I10 - Essential (primary) hypertension (5) Polysubstance abuse Code(s): F19.10 - OTHER PSYCHOACTIVE SUBSTANCE ABUSE, UNCOMPLICATED Status: Chronic (6) Type 1 diabetes mellitus with hyperosmolarity without nonketotic hyperglycemic hyperosmolar coma Code(s): E10.69 - TYPE 1 DIABETES MELLITUS WITH OTHER SPECIFIED COMPLICATION; E10.65 - TYPE 1 DIABETES MELLITUS WITH HYPERGLYCEMIA Status: Acute (7) Non-compliance with renal dialysis Code(s): Z91.15 - PATIENT'S NONCOMPLIANCE WITH RENAL DIALYSIS Status: Chronic - Plan Plan: 37 YO AAM w/ PMH of poorly controlled DMI, ESRD on hemodialysis, CVA x2, and polysubstance abuse who presented to the ED complaining of seizures. # HHS- resolved - gap closed this AM, started long-acting insulin and d/c'd insulin drip - had a low glucose of 26 2 hours after stopping drip - after d50 and eating glucose spiked to over >200 - will continue with lantus 10U BID and humalog 5U with meals SSI to cover # h/o reported seizures: - differential: substance abuse, hypoglycemia, pseudoseizures, seizure disorder - History not consistent with seizure disorder, tonic-clonic, 10s, no postictal or urination - EEG and neuro consult ordered, spoke to nursing EEG unlikely until 06/04 # DMI - see above # ESRD on hemodialysis: - Spoke to Dr. Vasudev, will dialyze today - usually on a MWF schedule - follows with Dr. 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 # HTN - home meds # CHF with preserved EF. - home meds, no signs of volume overload today # h/o polysubstance abuse: - last used PCP 4 days ago - used marijuana one day before coming in - not interested in quitting at this time Code: full Diet: diabetic, renal Fluids: none Dispo: d/c pending EEG and neuro eval <Tuan Hardwick - Last Filed: 06/03/18 15:32> (1) Hyperglycemia due to type 1 diabetes mellitus Code(s): E10.65 - TYPE 1 DIABETES MELLITUS WITH HYPERGLYCEMIA Status: Acute (2) ESRD (end stage renal disease) on dialysis Code(s): N18.6 - END STAGE RENAL DISEASE; Z99.2 - DEPENDENCE ON RENAL DIALYSIS Status: Chronic (3) Hypertension Code(s): I10 - ESSENTIAL (PRIMARY) HYPERTENSION Status: Chronic Qualifiers: Hypertension type: essential hypertension Qualified Code(s): I10 - Essential (primary) hypertension (4) HLD (hyperlipidemia) Code(s): E78.5 - HYPERLIPIDEMIA, UNSPECIFIED Status: Chronic (5) Diastolic CHF Code(s): I50.30 - UNSPECIFIED DIASTOLIC (CONGESTIVE) HEART FAILURE Status: Chronic Qualifiers: (6) Polysubstance abuse Code(s): F19.10 - OTHER PSYCHOACTIVE SUBSTANCE ABUSE, UNCOMPLICATED Status: Chronic (7) Normocytic anemia, not due to blood loss Code(s): D64.9 - ANEMIA, UNSPECIFIED Status: Acute (8) Diarrhea Code(s): R19.7 - DIARRHEA, UNSPECIFIED Status: Acute (9) Tobacco abuse Code(s): Z72.0 - TOBACCO USE Status: Acute <Chito Novak - Last Filed: 06/04/18 14:02> Attending Addendum - Attending Addendum Date/Time: 06/04/18 1401 I personally evaluated the patient and discussed the management with Dr. Hardwick on 06/03/18. I agree with the History, Examination, Assessment and Plan documented above with any addition or exceptions noted below. <Chito Novak - Last Filed: 06/04/18 14:02>
[2018-06-03 15:54] LABS: HBSAg Index 0.13 S/CO (0-0.99); Hep B Surf Ag Non-Reactive S/CO (NonReactive)
[2018-06-03 16:52] LABS: HBSAB Concentration 934.07 mIU/mL; Hep B Surf AB Reactive (NonReactive)
[2018-06-03] MEDS: Insulin Glargine 10 UNITS in Pre-Filled Syringe 1 EACH SC SCH ×2 (20:31→22:34)
[2018-06-04 04:26] LABS: #Eosinphils 0.1 thou/uL (0.0-0.7); #Lymphocytes 1.7 thou/uL (1.20-3.40); #Monocytes 0.6 thou/uL (0.11-0.59); %Basophils 0.2 % (0.0-1.0); %Eosinophils 1.3 % (0.0-10.0); %Lymphocytes 26.7 % (21.0-51.0); %Monocytes 9.3 % (0.0-10.0); %Neutrophils 62.5 % (42.0-75.0); Hemoglobin 12.3 g/dL (14.0-18.0); Mean Corpuscular HGB CONC 34.3 g/dL (32.0-36.0); Mean Corpuscular Hemoglobin 29.3 pg (27.0-31.0); Mean Corpuscular Volume 85.4 fL (78.0-98.0); Mean Platelet Volume 11.6 fL (7.4-10.4); Platelet Count 96 thou/uL (130-400); RBC Distribution Width 15.4 % (11.5-14.5); Red Blood Cell (RBC) Count 4.19 mill/uL (4.70-6.10); White Blood Cell (WBC) Count 6.3 thou/uL (4.8-10.8)
[2018-06-04 04:36] LABS: Anion Gap 15 mmol/L (10-20); BUN (Urea Nitrogen) 25 mg/dL (8.9-20.6); Calc. Creatinine Clearance 16 mL/min (70-130); Calcium 8.9 mg/dL (7.8-10.44); Carbon Dioxide 25 mmol/L (22-29); Chloride 98 mmol/L (98-107); Estimated GFR-MDRD 13; Glucose 340 mg/dL (70-105); Potassium 4.4 mmol/L (3.5-5.1); Sodium 134 mmol/L (136-145)
[2018-06-04] MEDS: HumaLOG 300 UNITS/3 ML VIAL SC PRN (05:11)
--- NOTE | 2018-06-04 06:16 | PDOC.FM ---
- Subjective Subjective: No complaints this morning. He was getting his EEG this am. States he would like to try to stop using PCP and marijuana. He also is going to try to take his insulin as prescribed. Neurology recommended keppra 500mg BID and outpatient follow-up. - Objective MAR Reviewed: Yes Vital Signs & Weight: Vital Signs (12 hours) Temp Pulse Resp BP BP Pulse Ox 06/04/18 04:00 99.5 F 95 16 125/68 95 06/04/18 00:24 98 06/03/18 20:30 91 144/76 H 06/03/18 20:00 97.2 F L 91 20 98 06/03/18 19:30 97.2 F L 91 20 142/68 H 98 Weight Weight 65.062 kg I&O: 06/02/18 06/03/18 06/04/18 06:59 06:59 06:59 Intake Total 39 Balance 39 Result Diagrams: 06/04/18 04:00 06/04/18 04:00 Phys Exam - Physical Examination Constitutional: NAD HEENT: PERRLA, moist MMs Respiratory: no wheezing, no rales, clear to auscultation bilateral Cardiovascular: RRR, no significant murmur Gastrointestinal: soft, non-tender, no distention Musculoskeletal: no edema Psychiatric: normal affect Dx/Plan (1) Hyperglycemia due to type 1 diabetes mellitus Code(s): E10.65 - TYPE 1 DIABETES MELLITUS WITH HYPERGLYCEMIA Status: Acute (2) Diabetes mellitus type 1 with complications Code(s): E10.8 - TYPE 1 DIABETES MELLITUS WITH UNSPECIFIED COMPLICATIONS Status: Chronic (3) ESRD (end stage renal disease) on dialysis Code(s): N18.6 - END STAGE RENAL DISEASE; Z99.2 - DEPENDENCE ON RENAL DIALYSIS Status: Chronic (4) HLD (hyperlipidemia) Code(s): E78.5 - HYPERLIPIDEMIA, UNSPECIFIED Status: Chronic (5) Hypertension Code(s): I10 - ESSENTIAL (PRIMARY) HYPERTENSION Status: Chronic Qualifiers: Hypertension type: essential hypertension Qualified Code(s): I10 - Essential (primary) hypertension (6) Polysubstance abuse Code(s): F19.10 - OTHER PSYCHOACTIVE SUBSTANCE ABUSE, UNCOMPLICATED Status: Chronic (7) Seizure Code(s): R56.9 - UNSPECIFIED CONVULSIONS Status: Acute - Plan Plan: 37 yo man with a pmhx of uncontrolled type 1 diabetes on with ESRD on hemodialysis MWF, CVA x2, and polysubstance abuse who presented to the ED complaining of seizures admitted for HHS and new seizure activity # HHS- resolved - gap closed - will increase Lantus to 12U BID and decrease humalog to 4U before meals - Will check blood glucose ACHS and 2 hour post prandial # h/o reported seizures: - differential: substance abuse vs hypoglycemia vs new onset seizure disorder ( less likely) - no postictal or urination - EEG pending today - Neuro consulted, recommend keppra with outpatient follow-up # DMI, uncontrolled - see above # ESRD on hemodialysis: - MWF schedule - follows with Dr. Gonzalez as primary personnel administrator # Normocytic anemia: - Likely 2/2 ESRD. # HTN - Continue amlodipine 10mg daily # h/o polysubstance abuse: - PCP and marijuana Code: full Diet: diabetic, renal Fluids: none Dispo: d/c pending EEG and neuro eval
[2018-06-04 07:04] LABS: Hemoglobin A1c 12.6 % (4.0-6.0)
[2018-06-04] MEDS: HumaLOG 300 UNITS/3 ML VIAL SC SCH ×3 (08:18→17:58)
[2018-06-04] MEDS: Heparin 5,000 UNITS/ML VIAL SC SCH ×2 (08:19→16:36)
[2018-06-04] MEDS: Cinacalcet HCl 30 MG TAB PO SCH (08:20)
[2018-06-04] MEDS: hydrALAZINE 25 MG TAB PO SCH ×2 (08:20→16:36)
[2018-06-04] MEDS: Amlodipine 10 MG TAB PO SCH (08:20)
[2018-06-04] MEDS: Sevelamer Carbonate 800 MG TAB PO SCH ×3 (08:21→17:59)
[2018-06-04] MEDS ORDERED: levETIRAcetam 500 MG TAB PO SCH (09:00)
--- NOTE | 2018-06-04 10:30 | CON ---
DATE OF CONSULTATION: 06/03/2018 CONSULTING PHYSICIAN: Dr. Novak. REASON FOR CONSULTATION: End-stage renal disease evaluation and care. REASON FOR ADMISSION: Altered mentation and seizure. HISTORY OF PRESENT ILLNESS: This is a 37-year-old male with history of end-stage renal disea se, type 2 diabetes, hypertension, hyperlipidemia, anemia, came to the hospital with altered mentatio n and seizure and Nephrology is consulted for maintenance hemodialysis. He gets dialysis Monday, Mon, and Monday. The patient admits positive use of PCP and marijuana and Nephrology is consulted for dialysis to see any improvement in mental status. The patient is slowly getting better. No fev er or chills. No nausea or vomiting. PAST MEDICAL HISTORY: Positive for end-stage renal disease, type 2 diabetes, hypertension, diarrhea, anemia. PAST SURGICAL HISTORY: Right BKA. HOME MEDICATIONS: Lantus, hydralazine, Renvela, Humalog, Sensipar, and amlodipine. ALLERGIES: PENICILLIN. SOCIAL HISTORY: He drinks liquor every few days and uses marijuana and tobacco. REVIEW OF SYSTEMS: The following complete review of systems was negative, unless otherwise mentioned in the HPI or below: Constitutional: Weight loss or gain, ability to conduct usual activities. Sk in: Rash, itching. Eyes: Double vision, pain. ENT/Mouth: Nose bleeding, neck stiffness, pain, te nderness. Cardiovascular: Palpitations, dyspnea on exertion, orthopnea. Respiratory: Shortness of breath, wheezing, cough, hemoptysis, fever or night sweats. Gastrointestinal: Poor appetite, abdom inal pain, heartburn, nausea, vomiting, constipation, or diarrhea. Genitourinary: Urgency, frequenc y, dysuria, nocturia. Musculoskeletal: Pain, swelling. Neurologic/Psychiatric: Anxiety, depressio n. Allergy/Immunologic: Skin rash, bleeding tendency. PHYSICAL EXAMINATION: GENERAL: This is a well-built male, in no apparent distress. VITAL SIGNS: Temperature 96.4, pulse , respiratory rate , blood pressure . LABORATORY DATA: Potassium is 3.6, BUN is 37, creatinine is 6.9. ASSESSMENT AND PLAN: 1. End-stage renal disease. Plan is to have dialysis today. 2. Edema, controlled. 3. Hypertension. 4. Hyponatremia. 5. Anemia. We will have dialysis for few hours, then continue dialysis Monday, Monday, and Monday, starting t omorrow. We will follow. Thank you for the consult.
--- NOTE | 2018-06-04 12:32 | PRG ---
DATE OF SERVICE: 06/04/2018 SUBJECTIVE: A 37-year-old gentleman being seen for end-stage renal disease. Patient denies any naus ea, vomiting or chest pain. PHYSICAL EXAMINATION: GENERAL: Patient is awake, alert. VITAL SIGNS: Afebrile, pulse 95, breathing 16, blood pressure 104/59. HEAD/NECK: Normocephalic. Atraumatic. EYES: EOMI. No deformity. EARS: Clear. No ulcers. NOSE: Intact. No lesions. MOUTH: Clear. No discharge. THROAT: Clear. No exudate. LUNGS: Clear. No crackles. CARDIAC: S1, S2. No rub. ABDOMEN: Benign. BS+. GENITALIA/RECTUM: Clifton absent. BACK/EXTREMITIES: Edema 0+ Ulcer- NEUROLOGICAL: Alert and motor intact. SKIN: Rash- Bruise- LYMPHATICS: Edema- Ulcer- LABORATORY DATA: Show hemoglobin 12.5, potassium 4.5. ASSESSMENT: 1. Stage 6 chronic kidney disease, plan hemodialysis. 2. Hypertension, stable. 3. Anemia, stable. 4. Medications based on glomerular filtration rate are appropriate.
[2018-06-04 13:09] VITALS: BP 122/66; TEMP 99.1
--- NOTE | 2018-06-05 10:14 | EEG ---
Referring Physician: CHRISTOPHER FINE EEG # [id number] TEST TYPE: ROUTINE PORTABLE INPATIENT REPORT: AN EEG USING THE INTERNATIONAL TEN-TWENTY SYSTEM OF ELECTRODE PLACEMENT WAS PERFORMED. The waking background is a 9 hertz alpha frequency. The patient became drowsy during the study, but no sleep was seem. Hyperventilation and photic stimulation were unremarkable. No epileptiform features seen. IMPRESSION: THIS IS A NORMAL AWAKE AND DROWSY EEG. Home Economics Expert: SHAILA Pressure Washer: EEG.ARETHA BRIGGS
== END 2018-06-04 18:23 | disposition home or self-care (01) | DRG 682 ==
LOC: ERS 14:54 → OBSVTOIN 18:50 → 2SW 18:50 → IMCU/EMU 21:21 → ONC 06-03 17:15
PROVIDERS: ADMIT Family Medicine; ATTEND Family Medicine
DX: I12.0 Hypertensive chronic kidney disease with stage 5 chronic kidney disease or end stage renal disease (principal); N18.6 End stage renal disease; E87.1 Hypo-osmolality and hyponatremia; I50.30 Unspecified diastolic (congestive) heart failure; D64.9 Anemia, unspecified; E11.22 Type 2 diabetes mellitus with diabetic chronic kidney disease; E78.5 Hyperlipidemia, unspecified; Z88.0 Allergy status to penicillin; E11.51 Type 2 diabetes mellitus with diabetic peripheral angiopathy without gangrene; Z86.73 Personal history of transient ischemic attack (TIA), and cerebral infarction without residual deficits; Z99.2 Dependence on renal dialysis; I13.2 Hypertensive heart and chronic kidney disease with heart failure and with stage 5 chronic kidney disease, or end stage renal disease
CPT/HCPCS: 36415; 36416; 80048; 80053; 80307; 82010; 82330; 82803; 83036; 83630; 83735; 83880; 84100; 85025; 86706; 87045; 87046; 87324; 87340; 87449; 87493; 87899; 90935; 95816; 95819; 96374; 96376; A4216; G0257; J1644; J1815; J7050

== ENCOUNTER 2018-06-05 20:26 | Emergency (ER) | payer MEDICARE, MEDICAID ==
[2018-06-05] MEDS ORDERED: levETIRAcetam 500 MG/100 ML PREMIX BAG ONE (21:11)
[2018-06-05 21:14] LABS: #Eosinphils 0.1 thou/uL (0.0-0.7); #Lymphocytes 1.5 thou/uL (1.20-3.40); #Monocytes 0.4 thou/uL (0.11-0.59); #Neutrophils 2.1 thou/uL (1.40-6.50); %Eosinophils 3.4 % (0.0-10.0); %Lymphocytes 35.5 % (21.0-51.0); %Monocytes 10.3 % (0.0-10.0); %Neutrophils 49.8 % (42.0-75.0); Hemoglobin 12.3 g/dL (14.0-18.0); Mean Corpuscular HGB CONC 33.9 g/dL (32.0-36.0); Mean Corpuscular Hemoglobin 29.5 pg (27.0-31.0); Mean Platelet Volume 11.1 fL (7.4-10.4); Platelet Count 87 thou/uL (130-400); RBC Distribution Width 15.6 % (11.5-14.5); Red Blood Cell (RBC) Count 4.16 mill/uL (4.70-6.10); White Blood Cell (WBC) Count 4.3 thou/uL (4.8-10.8)
[2018-06-05 21:29] LABS: ALT (SGPT) 13 U/L (8-55); AST (SGOT) 17 U/L (5-34); Albumin 3.9 g/dL (3.5-5.0); Alkaline Phosphatase 150 U/L (40-150); Anion Gap 13 mmol/L (10-20); BUN (Urea Nitrogen) 26 mg/dL (8.9-20.6); Bilirubin, Total 0.6 mg/dL (0.2-1.2); Calc. Creatinine Clearance 0 mL/min (70-130); Calcium 9.1 mg/dL (7.8-10.44); Carbon Dioxide 27 mmol/L (22-29); Chloride 97 mmol/L (98-107); Estimated GFR-MDRD 11; Globulin 3.6 g/dL (2.4-3.5); Potassium 4.3 mmol/L (3.5-5.1); Protein, Total 7.5 g/dL (6.0-8.3); Sodium 133 mmol/L (136-145)
[2018-06-05 21:32] LABS: Glucose 606 mg/dL (70-105)
[2018-06-05] MEDS ORDERED: Insulin Regular 300 UNITS/3 ML VIAL ONE (21:39)
[2018-06-05] MEDS ORDERED: levETIRAcetam 500 MG TAB PO SCH (23:45)
== END 2018-06-06 00:12 | disposition home or self-care (01) ==
LOC: ERS 20:26
DX: E10.65 Type 1 diabetes mellitus with hyperglycemia (principal); R56.9 Unspecified convulsions; Z86.73 Personal history of transient ischemic attack (TIA), and cerebral infarction without residual deficits; E78.5 Hyperlipidemia, unspecified; Z99.2 Dependence on renal dialysis; I12.0 Hypertensive chronic kidney disease with stage 5 chronic kidney disease or end stage renal disease; N18.6 End stage renal disease; F17.210 Nicotine dependence, cigarettes, uncomplicated
CPT/HCPCS: 36416; 80053; 82010; 85025; J1815; J1953

== ENCOUNTER 2018-06-06 19:51 | Emergency (ER) | payer MEDICARE, MEDICAID ==
[2018-06-06 21:43] LABS: Hemoglobin 12.4 g/dL (14.0-18.0); Mean Corpuscular HGB CONC 34.4 g/dL (32.0-36.0); Mean Corpuscular Hemoglobin 29.5 pg (27.0-31.0); Mean Corpuscular Volume 85.8 fL (78.0-98.0); RBC Distribution Width 15.6 % (11.5-14.5); White Blood Cell (WBC) Count 5.8 thou/uL (4.8-10.8)
[2018-06-06 21:55] LABS: #Basophils 0.1 thou/uL (0.0-0.2); #Eosinphils 0.1 thou/uL (0.0-0.7); #Lymphocytes 2.5 thou/uL (1.20-3.40); #Monocytes 0.5 thou/uL (0.11-0.59); #Neutrophils 2.7 thou/uL (1.40-6.50); %Basophils 1.1 % (0.0-1.0); %Eosinophils 2.2 % (0.0-10.0); %Lymphocytes 42.1 % (21.0-51.0); %Monocytes 8.9 % (0.0-10.0); %Neutrophils 45.7 % (42.0-75.0); Mean Platelet Volume 10.7 fL (7.4-10.4); PLT Morphology Comment Appears Decreased; Platelet Count 91 thou/uL (130-400)
[2018-06-06 22:03] LABS: ALT (SGPT) 13 U/L (8-55); AST (SGOT) 15 U/L (5-34); Alkaline Phosphatase 141 U/L (40-150); Anion Gap 15 mmol/L (10-20); BUN (Urea Nitrogen) 32 mg/dL (8.9-20.6); Bilirubin, Total 0.6 mg/dL (0.2-1.2); Calc. Creatinine Clearance 0 mL/min (70-130); Calcium 9.5 mg/dL (7.8-10.44); Carbon Dioxide 23 mmol/L (22-29); Chloride 101 mmol/L (98-107); Estimated GFR-MDRD 10; Globulin 3.4 g/dL (2.4-3.5); Glucose 97 mg/dL (70-105); Potassium 4.4 mmol/L (3.5-5.1); Protein, Total 7.4 g/dL (6.0-8.3); Sodium 135 mmol/L (136-145)
== END 2018-06-06 23:21 | disposition home or self-care (01) ==
LOC: ERS 19:51
DX: R55 Syncope and collapse (principal); E78.5 Hyperlipidemia, unspecified; E10.22 Type 1 diabetes mellitus with diabetic chronic kidney disease; I12.0 Hypertensive chronic kidney disease with stage 5 chronic kidney disease or end stage renal disease; N18.6 End stage renal disease; F17.210 Nicotine dependence, cigarettes, uncomplicated; Z99.2 Dependence on renal dialysis; Z89.511 Acquired absence of right leg below knee
CPT/HCPCS: 36415; 36416; 80053; 82010; 84146; 85025; 93005; 96361; 96365; 96375; J1815; J1953

== ENCOUNTER 2018-06-08 11:13 | Emergency (ER) | payer MEDICARE, MEDICAID ==
[2018-06-08 12:00] LABS: ALT (SGPT) 12 U/L (8-55); AST (SGOT) 11 U/L (5-34); Acetaminophen Less than 6.0 mcg/mL (10.0-30.0); Alcohol Less than 10 mg/dL (Less than 10); Alkaline Phosphatase 152 U/L (40-150); Anion Gap 18 mmol/L (10-20); BUN (Urea Nitrogen) 52 mg/dL (8.9-20.6); Bilirubin, Total 0.6 mg/dL (0.2-1.2); CK (CPK) 54 U/L (30-200); Calc. Creatinine Clearance 0 mL/min (70-130); Calcium 9.3 mg/dL (7.8-10.44); Carbon Dioxide 18 mmol/L (22-29); Chloride 105 mmol/L (98-107); Estimated GFR-MDRD 7; Globulin 3.4 g/dL (2.4-3.5); Glucose 200 mg/dL (70-105); Lipase 65 U/L (8-78); Magnesium 2.7 mg/dL (1.6-2.6); Phosphorus 3.8 mg/dL (2.3-4.7); Potassium 5.5 mmol/L (3.5-5.1); Protein, Total 7.4 g/dL (6.0-8.3); Salicylate Less than 8.0 mg/dL (15.0-30.0); Sodium 135 mmol/L (136-145)
[2018-06-08 12:03] LABS: CKMB 2.5 ng/mL (0-6.6); Troponin I Less than 0.010 ng/mL (< 0.028)
[2018-06-08 12:13] LABS: #Eosinphils 0.2 thou/uL (0.0-0.7); #Lymphocytes 2.1 thou/uL (1.20-3.40); #Monocytes 0.6 thou/uL (0.11-0.59); #Neutrophils 3.1 thou/uL (1.40-6.50); %Basophils 0.8 % (0.0-1.0); %Eosinophils 2.7 % (0.0-10.0); %Lymphocytes 34.6 % (21.0-51.0); %Monocytes 10.2 % (0.0-10.0); %Neutrophils 51.7 % (42.0-75.0); Hemoglobin 12.3 g/dL (14.0-18.0); Mean Corpuscular HGB CONC 34.1 g/dL (32.0-36.0); Mean Corpuscular Hemoglobin 29.7 pg (27.0-31.0); Mean Corpuscular Volume 87.1 fL (78.0-98.0); Mean Platelet Volume 11.4 fL (7.4-10.4); Platelet Count 108 thou/uL (130-400); RBC Distribution Width 15.7 % (11.5-14.5); Red Blood Cell (RBC) Count 4.13 mill/uL (4.70-6.10); White Blood Cell (WBC) Count 6.1 thou/uL (4.8-10.8)
--- NOTE | 2018-06-08 12:35 | RAD ---
CHEST ONE VIEW: HISTORY: Altered mental status. COMPARISON: Radiograph from 05/22/2018. FINDINGS: Mildly increased linear opacities in the right middle lobe. There is opacity of stents, left arm, pr ojecting over the subclavian vasculature. No focal air space consolidation, pneumothorax, or effusio n. IMPRESSION: No acute intrathoracic abnormality. POS: [facility]
--- NOTE | 2018-06-08 13:22 | CT ---
CT OF HEAD NONCOTNRAST: INDICATION: Altered mental status. COMPARISON: 05/22/18. FINDINGS: There is no acute intracranial hemorrhage, mass effect, midline shift, or ventriculomegaly. Imaged s inuses are clear. The calvarium is intact. IMPRESSION: No acute intracranial abnormalities. POS: [facility]
== END 2018-06-08 14:12 | disposition home or self-care (01) ==
LOC: ERS 11:13
DX: R41.82 Altered mental status, unspecified (principal); I12.0 Hypertensive chronic kidney disease with stage 5 chronic kidney disease or end stage renal disease; N18.6 End stage renal disease; E10.22 Type 1 diabetes mellitus with diabetic chronic kidney disease; F19.10 Other psychoactive substance abuse, uncomplicated; E78.5 Hyperlipidemia, unspecified; F17.210 Nicotine dependence, cigarettes, uncomplicated; Z86.73 Personal history of transient ischemic attack (TIA), and cerebral infarction without residual deficits
CPT/HCPCS: 36416; 70450; 71045; 80053; 80307; 82553; 83690; 83735; 84100; 84484; 85025; 93005

== ENCOUNTER 2018-06-12 13:00 | Emergency (ER) | payer MEDICARE, MEDICAID ==
[2018-06-12 14:29] LABS: #Eosinphils 0.1 thou/uL (0.0-0.7); #Lymphocytes 1.5 thou/uL (1.20-3.40); #Monocytes 0.6 thou/uL (0.11-0.59); #Neutrophils 2.2 thou/uL (1.40-6.50); %Eosinophils 2.3 % (0.0-10.0); %Lymphocytes 33.9 % (21.0-51.0); %Monocytes 12.9 % (0.0-10.0); Hemoglobin 11.8 g/dL (14.0-18.0); Mean Corpuscular HGB CONC 32.6 g/dL (32.0-36.0); Mean Corpuscular Hemoglobin 28.7 pg (27.0-31.0); Mean Corpuscular Volume 88.1 fL (78.0-98.0); Mean Platelet Volume 9.9 fL (7.4-10.4); Platelet Count 151 thou/uL (130-400); RBC Distribution Width 16.1 % (11.5-14.5); White Blood Cell (WBC) Count 4.4 thou/uL (4.8-10.8)
[2018-06-12 14:51] LABS: ALT (SGPT) 14 U/L (8-55); AST (SGOT) 11 U/L (5-34); Alkaline Phosphatase 199 U/L (40-150); Anion Gap 17 mmol/L (10-20); BUN (Urea Nitrogen) 41 mg/dL (8.9-20.6); Bilirubin, Total 0.7 mg/dL (0.2-1.2); Calc. Creatinine Clearance 0 mL/min (70-130); Calcium 9.7 mg/dL (7.8-10.44); Carbon Dioxide 32 mmol/L (22-29); Chloride 96 mmol/L (98-107); Estimated GFR-MDRD 11; Globulin 3.6 g/dL (2.4-3.5); Glucose 190 mg/dL (70-105); Protein, Total 7.6 g/dL (6.0-8.3); Sodium 140 mmol/L (136-145)
[2018-06-12] MEDS ORDERED: levETIRAcetam 500 MG TAB PO SCH (15:45)
== END 2018-06-12 16:28 | disposition home or self-care (01) ==
LOC: ERS 13:00
DX: R56.9 Unspecified convulsions (principal); E10.9 Type 1 diabetes mellitus without complications; E78.5 Hyperlipidemia, unspecified; I12.0 Hypertensive chronic kidney disease with stage 5 chronic kidney disease or end stage renal disease; F17.210 Nicotine dependence, cigarettes, uncomplicated; Z86.73 Personal history of transient ischemic attack (TIA), and cerebral infarction without residual deficits; Z79.899 Other long term (current) drug therapy
CPT/HCPCS: 36416; 80053; 84146; 85025; 93005; 96360; 96361

== ENCOUNTER 2018-06-26 07:57 | Emergency (ER) | payer MEDICARE, MEDICAID ==
[2018-06-26 08:56] LABS: ALT (SGPT) 18 U/L (8-55); AST (SGOT) 15 U/L (5-34); Albumin 3.8 g/dL (3.5-5.0); Alkaline Phosphatase 177 U/L (40-150); Anion Gap 15 mmol/L (10-20); BUN (Urea Nitrogen) 75 mg/dL (8.9-20.6); Bilirubin, Total 0.6 mg/dL (0.2-1.2); CK (CPK) 39 U/L (30-200); Calc. Creatinine Clearance 0 mL/min (70-130); Carbon Dioxide 27 mmol/L (22-29); Chloride 104 mmol/L (98-107); Estimated GFR-MDRD 7; Globulin 3.3 g/dL (2.4-3.5); Glucose 312 mg/dL (70-105); Protein, Total 7.1 g/dL (6.0-8.3); Sodium 140 mmol/L (136-145)
[2018-06-26 08:58] LABS: Troponin I Less than 0.010 ng/mL (< 0.028)
[2018-06-26 09:01] LABS: Base Excess-Venous 3.8 mmol/L (0 (+/- 2.5)); Bicarbonate (HCO3v) 31.3 mmol/L (1.0-85.0); CO2 Tension (PvCO2) 59.2 mmHg (41.0-51.0); Calcium, Ionized 1.06 mmol/L (1.12-1.32); O2 Tension (PvO2) 64.1 mmHg (35.0-45.0); Potassium 6.5 mmol/L (3.4-4.7); T. Carbon Dioxide 33.1 mmol/L (1.0-85.0); pH (Venous) 7.331 (7.35-7.45); vO2 Saturation-calc 89.8 % (94-98)
--- NOTE | 2018-06-26 09:07 | RAD ---
SINGLE VIEW OF THE CHEST: Comparison: 06-08-18 History: Difficulty breathing with shortness of breath. FINDINGS: Single view of the chest shows a normal sized cardiomediastinal silhouette. There is no evidence of c onsolidation, mass, or pleural effusions. Multiple vascular stents are seen in the left upper extremi ty. IMPRESSION: No evidence of acute cardiopulmonary disease. POS: [facility]
[2018-06-26 09:12] LABS: #Basophils 0.1 thou/uL (0.0-0.2); #Eosinphils 0.1 thou/uL (0.0-0.7); #Lymphocytes 1.2 thou/uL (1.20-3.40); #Monocytes 0.5 thou/uL (0.11-0.59); #Neutrophils 2.4 thou/uL (1.40-6.50); %Basophils 1.2 % (0.0-1.0); %Lymphocytes 28.2 % (21.0-51.0); %Monocytes 11.7 % (0.0-10.0); %Neutrophils 55.8 % (42.0-75.0); Hemoglobin 11.7 g/dL (14.0-18.0); Mean Corpuscular HGB CONC 32.7 g/dL (32.0-36.0); Mean Corpuscular Hemoglobin 29.6 pg (27.0-31.0); Mean Corpuscular Volume 90.6 fL (78.0-98.0); Red Blood Cell (RBC) Count 3.96 mill/uL (4.70-6.10); White Blood Cell (WBC) Count 4.4 thou/uL (4.8-10.8)
[2018-06-26 09:26] LABS: MDiff Complete? YES; Mean Platelet Volume 10.5 fL (7.4-10.4); PLT Morphology Comment Appears Decreased; Platelet Count 108 thou/uL (130-400); Polychromasia SLIGHT = 2-3 cells (100X) (0-2/hpf); RBC Distribution Width 16.8 % (11.5-14.5)
[2018-06-26] MEDS ORDERED: HumaLOG 300 UNITS/3 ML VIAL ONE (09:35)
--- NOTE | 2018-06-26 13:04 | CON ---
DATE OF CONSULTATION: 06/26/2018 REASON FOR CONSULTATION: End-stage renal disease and hyperkalemia. HISTORY OF PRESENT ILLNESS: This is a 37-year-old gentleman who presented to the hospital after miss ing dialysis. Potassium was noted to be 6.5. The patient was offered dialysis and after discussion the patient declined. PAST MEDICAL HISTORY: Diabetes mellitus, hypertension, anemia, CKD, history of amputation. The lito ent was taken to the dialysis room, but refused dialysis. Past medical history is significant for CVA, type 1 diabetes mellitus, DKA. PAST SURGICAL HISTORY: Significant for a tunneled dialysis catheter. SOCIAL HISTORY: History of drug use. FAMILY HISTORY: Negative for ESRD. ALLERGIES: Reviewed. HOME MEDICATIONS: List reviewed. REVIEW OF SYSTEMS: Fifteen point review of systems was performed and negative except for positives n oted above. GENERAL: Weakness- HEAD: Headache- NECK: No swelling or lumps. NOSE: No epistaxis or discharge. EYES: No diplopia or pain. RESPIRATORY: Dyspnea- CARDIOVASCULAR: Chest pain- GASTROINTESTINAL: Nausea- /INSTALLER: Hematuria- MUSCULOSKELETAL: No joint pain. NEUROPSYCHIATIC SYSTEMS: No suicidal ideation. No ideation. SKIN: Denies any rash or ulcer. CONSTITUTIONAL: No fever or chills. PHYSICAL EXAMINATION: GENERAL: Patient is awake, alert. VITAL SIGNS: Pulse 71, breathing 16, blood pressure 147/85. OBJECTIVE: See above. Awake, alert, in no acute distress. GENERAL APPEARANCE AND MENTAL STATUS: Fair. HEAD/NECK: Normocephalic. Atraumatic. EYES: EOMI. No deformity. EARS: Clear. No ulcers. NOSE: Intact. No lesions. MOUTH: Clear. No discharge. THROAT: Clear. No exudate. LUNGS: Clear. No crackles. CARDIAC: S1, S2. No rub. ABDOMEN: Benign. BS+. GENITALIA/RECTUM: Clifton absent. BACK/EXTREMITIES: Edema 0+ Ulcer- NEUROLOGICAL: Alert and motor intact. SKIN: Rash- Bruise- LYMPHATICS: Edema- Ulcer- LABORATORY: Potassium 6.5. 1. Stage 6 chronic kidney disease. We will plan dialysis. The patient refused. He understands all risks and benefits including . No family member was available. The patient signed out against medical advice. 2. Anemia, stable. 3. Hypertension, stable. 4. Medications based on glomerular filtration rate are appropriate.
== END 2018-06-26 11:13 | disposition left against medical advice (07) ==
LOC: ERS 07:57
DX: R42 Dizziness and giddiness (principal); Z86.73 Personal history of transient ischemic attack (TIA), and cerebral infarction without residual deficits; E10.9 Type 1 diabetes mellitus without complications; E78.5 Hyperlipidemia, unspecified; I12.0 Hypertensive chronic kidney disease with stage 5 chronic kidney disease or end stage renal disease; N18.6 End stage renal disease; Z99.2 Dependence on renal dialysis; F17.210 Nicotine dependence, cigarettes, uncomplicated
CPT/HCPCS: 36415; 71045; 80053; 82330; 82550; 82803; 84484; 85025; 93005

== ENCOUNTER 2018-06-27 11:38 | Emergency (ER) | payer MEDICARE, MEDICAID ==
[2018-06-27 14:16] LABS: #Eosinphils 0.1 thou/uL (0.0-0.7); #Lymphocytes 1.2 thou/uL (1.20-3.40); #Monocytes 0.5 thou/uL (0.11-0.59); #Neutrophils 3.4 thou/uL (1.40-6.50); %Basophils 0.4 % (0.0-1.0); %Eosinophils 2.3 % (0.0-10.0); %Lymphocytes 23.8 % (21.0-51.0); %Monocytes 8.7 % (0.0-10.0); %Neutrophils 64.9 % (42.0-75.0); Hemoglobin 11.7 g/dL (14.0-18.0); Mean Corpuscular HGB CONC 33.1 g/dL (32.0-36.0); Mean Corpuscular Hemoglobin 29.7 pg (27.0-31.0); Mean Corpuscular Volume 89.7 fL (78.0-98.0); Mean Platelet Volume 11.4 fL (7.4-10.4); Platelet Count 116 thou/uL (130-400); RBC Distribution Width 16.3 % (11.5-14.5); Red Blood Cell (RBC) Count 3.92 mill/uL (4.70-6.10); White Blood Cell (WBC) Count 5.2 thou/uL (4.8-10.8)
[2018-06-27 14:41] LABS: ALT (SGPT) 18 U/L (8-55); AST (SGOT) 13 U/L (5-34); Albumin 3.7 g/dL (3.5-5.0); Alkaline Phosphatase 180 U/L (40-150); Anion Gap 20 mmol/L (10-20); BUN (Urea Nitrogen) 98 mg/dL (8.9-20.6); Bilirubin, Total 0.8 mg/dL (0.2-1.2); Calc. Creatinine Clearance 0 mL/min (70-130); Calcium 8.8 mg/dL (7.8-10.44); Carbon Dioxide 23 mmol/L (22-29); Chloride 100 mmol/L (98-107); Estimated GFR-MDRD 6; Globulin 3.2 g/dL (2.4-3.5); Glucose 523 mg/dL (70-105); Protein, Total 6.9 g/dL (6.0-8.3); Sodium 136 mmol/L (136-145)
[2018-06-27 14:50] LABS: Potassium 6.7 mmol/L (3.5-5.1)
--- NOTE | 2018-06-30 21:56 | EKG ---
Test Reason : Blood Pressure : / mmHG Vent. Rate : 080 BPM Atrial Rate : 080 BPM P-R Int : 160 ms QRS Dur : 088 ms QT Int : 332 ms P-R-T Axes : 076 128 058 degrees QTc Int : 382 ms Normal sinus rhythm Right axis deviation Low voltage QRS Cannot rule out Anteroseptal infarct , age undetermined No STEMI Abnormal ECG Confirmed by VISHNU Avalos, BRUCE ([id number]), sports editor VINI DE LA CRUZ ([id number]) on 06/30/2018 9:55:53 PM Referred By: Confirmed By:BRUCE MARES M.D.
== END 2018-06-27 19:10 | disposition home or self-care (01) ==
LOC: ERS 11:38
DX: E10.65 Type 1 diabetes mellitus with hyperglycemia (principal); E10.22 Type 1 diabetes mellitus with diabetic chronic kidney disease; I12.0 Hypertensive chronic kidney disease with stage 5 chronic kidney disease or end stage renal disease; N18.6 End stage renal disease; Z99.2 Dependence on renal dialysis; E87.5 Hyperkalemia; E78.5 Hyperlipidemia, unspecified; F17.210 Nicotine dependence, cigarettes, uncomplicated; Z86.73 Personal history of transient ischemic attack (TIA), and cerebral infarction without residual deficits
CPT/HCPCS: 36416; 80053; 85025; 90935; 93005; 99406; G0257

== ENCOUNTER 2018-06-28 10:37 | Observation (INO) | payer MEDICARE, MEDICAID ==
[2018-06-28 12:09] LABS: #Eosinphils 0.1 thou/uL (0.0-0.7); #Lymphocytes 1.9 thou/uL (1.20-3.40); #Monocytes 0.7 thou/uL (0.11-0.59); #Neutrophils 2.9 thou/uL (1.40-6.50); %Basophils 0.2 % (0.0-1.0); %Eosinophils 2.3 % (0.0-10.0); %Lymphocytes 33.5 % (21.0-51.0); %Monocytes 12.2 % (0.0-10.0); %Neutrophils 51.8 % (42.0-75.0); Mean Corpuscular HGB CONC 32.7 g/dL (32.0-36.0); Mean Corpuscular Hemoglobin 29.3 pg (27.0-31.0); Mean Corpuscular Volume 89.5 fL (78.0-98.0); Mean Platelet Volume 10.9 fL (7.4-10.4); PLT Morphology Comment Appears Decreased; Platelet Count 55 thou/uL (130-400); RBC Distribution Width 16.3 % (11.5-14.5); RBC Morphology Normal; White Blood Cell (WBC) Count 5.6 thou/uL (4.8-10.8)
[2018-06-28 13:27] LABS: ALT (SGPT) 16 U/L (8-55); AST (SGOT) 13 U/L (5-34); Albumin 3.9 g/dL (3.5-5.0); Alkaline Phosphatase 158 U/L (40-150); Anion Gap 19 mmol/L (10-20); BUN (Urea Nitrogen) 46 mg/dL (8.9-20.6); Bilirubin, Total 0.9 mg/dL (0.2-1.2); Calc. Creatinine Clearance 0 mL/min (70-130); Carbon Dioxide 23 mmol/L (22-29); Chloride 102 mmol/L (98-107); Estimated GFR-MDRD 9; Globulin 3.1 g/dL (2.4-3.5); Glucose 238 mg/dL (70-105); Potassium 5.2 mmol/L (3.5-5.1); Sodium 139 mmol/L (136-145)
[2018-06-28 13:31] LABS: Troponin I Less than 0.010 ng/mL (< 0.028)
--- NOTE | 2018-06-28 14:02 | RAD ---
2 VIEWS CHEST: Date: 06/28/18 COMPARISON: 06/26/18. HISTORY: Syncope. FINDINGS: Two views of the chest show normal sized cardiomediastinal silhouette. There is no evidence of consol idation, mass, or pleural effusion. Vascular stents are seen in the proximal aspect of the left upper extremity. IMPRESSION: No evidence of acute cardiopulmonary disease. POS: [facility]
--- NOTE | 2018-06-28 14:41 | PDOC.FPRHP ---
- History of Present Illness Chief Complaint: syncope History of Present Illness: 37 yo M with pmh of DM1, BKA, and ESRD on dialysis MWF presents for syncopal episode. pt reports that syncopal episodes with associated seizures onset was 1 month ago. pt would have 10 episodes per week of syncope followed by convulsions with a 10 second post ictal state of confusion. reports several trips to ER/hospital and was eventually given Keppra. EEG was done on 06/09 which came back as normal awake and drowsy. Since starting Keppra pt has not had any convulsions but continues to have syncopal episodes 3-4/week with prodrome and 10second post ictal state. Denies any trauma to head but does not remember passing out. Today pt went to doctors office today and had an episode in the car. Dr. Vides went out to [place] and told family to go to ER and BP and glucose check were normal. Pt reports this episode was just like the others- prodrome with dizziness, syncope lasting 60 seconds, no convulsions and 10 second post ictal. Pt has never checked blood sugars after episodes. - Allergies/Adverse Reactions Allergies Allergy/AdvReac Type Severity Reaction Status Date / Time Penicillins Allergy Unknown Verified 06/02/18 19:42 - Home Medications Medication Instructions Recorded Confirmed Type Sevelamer Carbonate [Renvela] 3 tab PO TID-WM 09/08/15 06/02/18 History Amlodipine Besylate [amLODIPine 10 mg PO DAILY 09/02/16 06/02/18 History Besylate] Cinacalcet HCl [Sensipar] 60 mg PO DAILY 09/02/16 06/02/18 History hydrALAZINE [Apresoline] 25 mg PO TID 09/02/16 06/02/18 History Sertraline HCl 25 mg PO DAILY 03/03/17 06/02/18 History HumaLOG [HumaLOG Vial] 3 unit SC TID-WM PRN #0 05/24/18 06/02/18 Rx HumaLOG [HumaLOG Vial] 3 units SC TID-WM vial 06/04/18 Rx Insulin Glargine [Lantus Vial] 12 units SC QAM 30 Days #1 vial 06/04/18 Rx Pre-Filled Syringe 12 unit SC HS #1 pen 06/04/18 Rx levETIRAcetam [Keppra] 500 mg PO BID #60 tab 06/04/18 Rx - History PMHx: DM1, ESRD on dialysis MWF, HTN, CHF PSHx: R BKA FHx: DM, HTN, lymphoma, breast cancer Social: active smoker 10 pack hx, social drinker (once/2 months), marijuana use daily, PCP (last use 1 week) - Review of Systems General: denies: fever/chills, fatigue ENT: denies: nasal congestion, rhinorrhea Respiratory: denies: cough, shortness of breath Cardiovascular: denies: chest pain, palpitation Gastrointestinal: reports: diarrhea (chronic). denies: nausea, vomiting Skin: denies: jaundice, itching Neurological: reports: syncope. denies: seizure - Vital signs BP: [187/86] HR: [89] RR: [14] Tmax: [97.6] Pox: [95]% on [ra] Wt: [67] - Physical Exam Constitutional: NAD, awake, alert and oriented HEENT: normocephalic and atraumatic, EOMI, MMM Chest: no-tender to palpation Heart: RRR, normal S1/S2 Lungs: CTAB, no respiratory distress Abdomen: soft, non-tender, bowel sounds present Musculoskeletal: other (R BKA) Neurological: no focal deficit, CN II-XII intact, normal sensation, DTRs 2+ Psychiatric: normal mood and affect, good judgment and insight FMR H&P: Results - Labs Result Diagrams: 06/28/18 11:33 06/28/18 12:55 Lab results: WBC 5.6 thou/uL (4.8-10.8) 06/28/18 11:33 Hgb 12.0 g/dL (14.0-18.0) L 06/28/18 11:33 Hct 36.7 % (42.0-52.0) L 06/28/18 11:33 MCV 89.5 fL (78.0-98.0) 06/28/18 11:33 Plt Count 55 thou/uL (130-400) L 06/28/18 11:33 Neutrophils % 51.8 % (42.0-75.0) 06/28/18 11:33 Sodium 139 mmol/L (136-145) 06/28/18 12:55 Potassium 5.2 mmol/L (3.5-5.1) H 06/28/18 12:55 Chloride 102 mmol/L (98-107) 06/28/18 12:55 Carbon Dioxide 23 mmol/L (22-29) 06/28/18 12:55 BUN 46 mg/dL (8.9-20.6) H 06/28/18 12:55 Creatinine 8.09 mg/dL (0.6-1.3) H 06/28/18 12:55 Glucose 238 mg/dL (70-105) H 06/28/18 12:55 Calcium 9.0 mg/dL (7.8-10.44) 06/28/18 12:55 Total Bilirubin 0.9 mg/dL (0.2-1.2) 06/28/18 12:55 AST 13 U/L (5-34) 06/28/18 12:55 ALT 16 U/L (8-55) 06/28/18 12:55 Alkaline Phosphatase 158 U/L (40-150) H 06/28/18 12:55 CK-MB (CK-2) 2.0 ng/mL (0-6.6) 06/28/18 12:58 Serum Total Protein 7.0 g/dL (6.0-8.3) 06/28/18 12:55 Albumin 3.9 g/dL (3.5-5.0) 06/28/18 12:55 FMR H&P: A/P - Problem List (1) Syncope and collapse Status: Acute Code(s): R55 - SYNCOPE AND COLLAPSE (2) ESRD (end stage renal disease) on dialysis Status: Chronic Code(s): N18.6 - END STAGE RENAL DISEASE; Z99.2 - DEPENDENCE ON RENAL DIALYSIS (3) Hypertension Status: Chronic Code(s): I10 - ESSENTIAL (PRIMARY) HYPERTENSION Qualifiers: Hypertension type: essential hypertension Qualified Code(s): I10 - Essential (primary) hypertension (4) Polysubstance abuse Status: Chronic Priority: Low Code(s): F19.10 - OTHER PSYCHOACTIVE SUBSTANCE ABUSE, UNCOMPLICATED (5) Thrombocytopenia Status: Acute Code(s): D69.6 - THROMBOCYTOPENIA, UNSPECIFIED - Plan 37yo M with pmh of DM1 and ESRD on dialysis MWF presents for syncope Syncope/seizure like symptoms possibly secondary cardiac causes vs. drug use A- 1 month hx of syncope with acute onset, and short duration. normal EEG last month, on Keppra. EKG negative. No hx of head trauma and no signs of trauma on exam. No focal neurological deficits. electrolytes wnl. Echo 12/2017 normal with EF 50-55%. P- admit to tele for cardiac monitoring -CTA of neck -CBC, CMP -orthostatics -consult cardiology in AM -continue home keppra -TSH -adolescent counselor against drugs ESRD on dialysis MWF A- Pt had dialysis yesterday P- maintain normal schedule DM1 -home meds -ACHS accuchecks HTN -home meds Polysubstance abuse -MD aware, pt reports marijuana and PCP use thrombocytopenia -chronic in nature however significant decrease in last 24 hours -cont to monitor FMR H&P: Upper Level - Pertinent history 37 yr old male with a PMH of DM I, ESRD on HD, hx of CVA x 2 presents to ER after being sent over by his PCP for a syncope episode in the doctor office parking lot this morning. He is not very in tune to most of these episodes and his mom is able to offer more of the information. Some of the HPI is also taken from the PCP who saw him this AM. Patient reports episodes of feeling dizzy and then he passes out. He is nevre very aware of what occured when he wakes. SOme of the episodes have been wqitnessed and reportedly he has LOC for about a min. He is confused for only a matter of seconds after the episode. This started occuring 1-2 months ago and he was most recently seen in the hsopital for this in middle of May and thought to have seizures bc the passing out episodes were accompanied by convulsions of his arms. He says this is no longer occurring since starting keppra. Now just having LOC. He had a normal EEG in 05/2018 that showed normal, drowsy EEG. - Pertinent findings Gen: NAD, stutters when speaking. Heart: RRR, no M/R/G Lungs: CTAB, no wheezes, rhales, rhonchi EXT: right BKA, left LE strength 5/5, normal sensation. Neuro: CN 2-12 intact, sensation intact EKG: NSR, no ST changes. nml ID interval. QTc 411 MS, QRS 74 ms platelets: 55 - Plan Date/Time: 06/28/18 1441 I, [Tuyet Benitez], have evaluated this patient and agree with findings/plan as outlined by product managent intern resident. Pertinent changes/additions are listed here. syncope and collapse possibly 2/2 cardiac vs drug use -essentially nml electrolytes, will check mag and phos additionally -check TSH -hold off on ECHO since he had a nml LVEF of 50-55% with normal diastolic function in , mild MR, TR -essentially normal neuro exam today -check CTA neck -certainly his drug use could be contributory and he has been counseled against this -check orthostatics -cards consult DM type I, uncontrolled -cont home insulin regimen -qACHS accuchekcs thrombocytopenia -chronic in nature however significant decrease in last 24 hours -cont to monitor ESRD on HD M//F -notify nephro HTN -cont home meds HLD -cont home meds Polysubstance abuse -counseled extensively on need to stop drug use depression tobacco abuse -counseled on cessation hx of CVA x 2 hx of seizure like activity -on keppra, cont Attending Addendum - Attending Addendum Date/Time: 06/28/182027 I personally evaluated the patient and discussed the management with Dr. Lazar I agree with the History, Examination, Assessment and Plan documented above with any addition or exceptions noted below- Briefly this is a 37 yo male with h /o type 1DM, ESRD on HD, s/p right BKA who presented with c/o recurrent syncopal episodes/ Patinet states that these episodes have been going on for last 1-2 months. Diagnosed with seizures and started on keppra. Seizures resolved but continues to have syncopal episodes. Upon evaluation of patient he stated that he did not want to stay in the hospital for further evaluation. Discussed risks including possibility of if these episodes are related to cardiac arrythmias orm other significant disease. States that he understands and still wants to leave. AMA papers signed.
[2018-06-28 16:42] LABS: Troponin I Less than 0.010 ng/mL (< 0.028)
[2018-06-28] MEDS ORDERED: Nicotine 14 MG PATCH TD SCH (18:59)
[2018-06-28 19:17] VITALS: BP 187/86; TEMP 97.6; BMI 20.7
[2018-06-28] MEDS ORDERED: hydrALAZINE 25 MG TAB PO SCH (21:00)
[2018-06-28] MEDS ORDERED: levETIRAcetam 500 MG TAB PO SCH (21:00)
[2018-06-29] MEDS ORDERED: Sevelamer Carbonate 800 MG TAB PO SCH (08:00)
[2018-06-29] MEDS ORDERED: HumaLOG 300 UNITS/3 ML VIAL SC SCH (08:00)
[2018-06-29] MEDS ORDERED: Amlodipine 10 MG TAB PO SCH (09:00)
--- NOTE | 2018-06-30 20:52 | EKG ---
Test Reason : Blood Pressure : / mmHG Vent. Rate : 083 BPM Atrial Rate : 083 BPM P-R Int : 138 ms QRS Dur : 074 ms QT Int : 350 ms P-R-T Axes : 074 068 071 degrees QTc Int : 411 ms Normal sinus rhythm Low voltage QRS Septal infarct , age undetermined Abnormal ECG Confirmed by JAMEE SAMUEL ([id number]), greeting card editor VINI DE LA CRUZ ([id number]) on 06/30/2018 8:51:44 PM Referred By: Confirmed By:JAMEE SAMUEL
== END 2018-06-28 19:25 | disposition left against medical advice (07) ==
LOC: ERS 10:37 → 2SW 14:21
PROVIDERS: ADMIT Family Medicine; ATTEND Family Medicine
DX: R55 Syncope and collapse (principal); I13.2 Hypertensive heart and chronic kidney disease with heart failure and with stage 5 chronic kidney disease, or end stage renal disease; E10.22 Type 1 diabetes mellitus with diabetic chronic kidney disease; I50.9 Heart failure, unspecified; N18.6 End stage renal disease; F19.10 Other psychoactive substance abuse, uncomplicated; D69.6 Thrombocytopenia, unspecified; Z99.2 Dependence on renal dialysis; Z88.0 Allergy status to penicillin; Z79.4 Long term (current) use of insulin; Z79.899 Other long term (current) drug therapy
CPT/HCPCS: 71045; 80053; 80177; 80307; 82553; 84484 ×2; 85025; 93005; 99285; G0378; 36415

== ENCOUNTER 2018-07-31 14:49 | Emergency (ER) | payer MEDICARE, MEDICAID ==
[2018-07-31 15:34] LABS: #Basophils 0.1 thou/uL (0.0-0.2); #Eosinphils 0.1 thou/uL (0.0-0.7); #Lymphocytes 1.4 thou/uL (1.20-3.40); #Monocytes 0.5 thou/uL (0.11-0.59); #Neutrophils 4.9 thou/uL (1.40-6.50); %Basophils 0.8 % (0.0-1.0); %Eosinophils 2.1 % (0.0-10.0); %Lymphocytes 20.1 % (21.0-51.0); %Monocytes 7.7 % (0.0-10.0); %Neutrophils 69.2 % (42.0-75.0); Hemoglobin 11.6 g/dL (14.0-18.0); Mean Corpuscular HGB CONC 32.4 g/dL (32.0-36.0); Mean Corpuscular Hemoglobin 29.9 pg (27.0-31.0); Mean Corpuscular Volume 92.4 fL (78.0-98.0); Mean Platelet Volume 11.2 fL (7.4-10.4); Platelet Count 104 thou/uL (130-400); RBC Distribution Width 14.1 % (11.5-14.5); Red Blood Cell (RBC) Count 3.88 mill/uL (4.70-6.10)
[2018-07-31 15:54] LABS: ALT (SGPT) 9 U/L (8-55); AST (SGOT) 10 U/L (5-34); Albumin 3.9 g/dL (3.5-5.0); Alkaline Phosphatase 121 U/L (40-150); Anion Gap 23 mmol/L (10-20); BUN (Urea Nitrogen) 66 mg/dL (8.9-20.6); Bilirubin, Total 0.6 mg/dL (0.2-1.2); Calc. Creatinine Clearance 0 mL/min (70-130); Calcium 9.1 mg/dL (7.8-10.44); Carbon Dioxide 24 mmol/L (22-29); Chloride 96 mmol/L (98-107); Estimated GFR-MDRD 6; Globulin 3.7 g/dL (2.4-3.5); Glucose 492 mg/dL (70-105); Magnesium 2.4 mg/dL (1.6-2.6); Phosphorus 7.4 mg/dL (2.3-4.7); Potassium 6.2 mmol/L (3.5-5.1); Protein, Total 7.6 g/dL (6.0-8.3); Sodium 137 mmol/L (136-145)
[2018-07-31] MEDS ORDERED: Sodium Bicarbonate 2.5 MEQ/5 ML VIAL ONE (17:02)
[2018-07-31] MEDS ORDERED: Insulin Regular 300 UNITS/3 ML VIAL ONE (17:02)
[2018-07-31] MEDS ORDERED: Calcium Gluc 4.6 MEQ/10 ML (100 MG/ML) ONE ×2 (17:04→17:07)
[2018-07-31] MEDS ORDERED: Sodium Bicarb 50 MEQ/50 ML Abboject 8.4% SYRINGE ONE (17:04)
--- NOTE | 2018-08-01 02:56 | CON ---
DATE OF CONSULTATION: 07/31/2018 CONSULTING PHYSICIAN: Camila Rico MD REASON FOR CONSULTATION: End-stage renal disease evaluation and care and hyperkalemia. REASON FOR ER VISIT: Weakness. HISTORY OF PRESENT ILLNESS: This is a 37-year-old male with history of end-stage renal disea se, hypertension, type diabetes, and CHF, who came to the hospital with weakness. Nephrology i s consulted for end-stage renal disease and hyperkalemia. The patient is slightly confused. No nausea or vomiting. No chest pain. PAST MEDICAL HISTORY: Positive for end-stage renal disease, type 1 diabetes, hypertension, and CHF. PAST SURGICAL HISTORY: Right BKA surgery and dialysis access placement. HOME MEDICATIONS: Include Keppra, Lantus, Humalog, Sensipar, and amlodipine. ALLERGIES: To PENICILLIN. SOCIAL HISTORY: Active smoker, social drinker and marijuana use. FAMILY HISTORY: Positive for diabetes and hypertension. REVIEW OF SYSTEMS: The following complete review of systems was negative, unless otherwise mentioned in the HPI or below: CONSTITUTIONAL: Weight loss or gain, ability to conduct usual activities. SKIN: Rash, itching. EYES: Double vision, pain. ENT/MOUTH: Nose bleeding, neck stiffness, pain, tenderness. CARDIOVASCULAR: Palpitations, dyspnea on exertion, orthopnea. RESPIRATORY: Shortness of breath, wheezing, cough, hemoptysis, fever or night sweats. GASTROINTESTINAL: Poor appetite, abdominal pain, heartburn, nausea, vomiting, constipation, or diarr hea. GENITOURINARY: Urgency, frequency, dysuria, nocturia. MUSCULOSKELETAL: Pain, swelling. NEUROLOGIC/PSYCHIATRIC: Anxiety, depression. ALLERGY/IMMUNOLOGIC: Skin rash, bleeding tendency. PHYSICAL EXAMINATION: GENERAL: This is a well-built male, in no apparent distress. VITAL SIGNS: Temperature 98.6, pulse 70, respiratory rate 18, blood pressure 154/84. HEENT: Atraumatic, normocephalic. Oral mucosa is moist. NECK: Supple. No masses. CARDIOVASCULAR: S1 and S2 heard. Rate and rhythm regular. RESPIRATORY: Clear. GASTROINTESTINAL: Abdomen is soft. MUSCULOSKELETAL: 1+ edema. DERMATOLOGIC: No skin rash. NEUROLOGIC: Slightly confused. PSYCHIATRIC: Not assessed. LABORATORY DATA: Potassium 6.2. Hemoglobin 11.6. Creatinine 12.05 and BUN 66. ASSESSMENT AND PLAN: 1. End-stage renal disease. Will have dialysis as tolerated. 2. Hyperkalemia. Limit potassium intake. 3. Edema. 4. Hypertension. 5. Anemia. Plan is to continue on dialysis as tolerated. Thank you for the consult.
== END 2018-07-31 22:43 | disposition home or self-care (01) ==
LOC: ERS 14:49
DX: E10.65 Type 1 diabetes mellitus with hyperglycemia (principal); E87.5 Hyperkalemia; I12.0 Hypertensive chronic kidney disease with stage 5 chronic kidney disease or end stage renal disease; N18.6 End stage renal disease; F17.210 Nicotine dependence, cigarettes, uncomplicated; Z86.73 Personal history of transient ischemic attack (TIA), and cerebral infarction without residual deficits; Z79.899 Other long term (current) drug therapy
CPT/HCPCS: 36415; 36416; 80053; 82010; 83735; 84100; 85025; 93005; 96361; 96374; 96375; J1815

== ENCOUNTER 2018-08-25 22:16 | Emergency (ER) | payer MEDICARE, OTHER ==
[2018-08-25] MEDS ORDERED: Insulin Regular 300 UNITS/3 ML VIAL ONE (23:39)
[2018-08-26 00:06] LABS: #Basophils 0.1 thou/uL (0.0-0.2); #Eosinphils 0.1 thou/uL (0.0-0.7); #Lymphocytes 1.6 thou/uL (1.20-3.40); #Monocytes 0.7 thou/uL (0.11-0.59); #Neutrophils 3.1 thou/uL (1.40-6.50); %Basophils 1.1 % (0.0-1.0); %Eosinophils 1.5 % (0.0-10.0); %Lymphocytes 28.4 % (21.0-51.0); %Monocytes 13.4 % (0.0-10.0); %Neutrophils 55.6 % (42.0-75.0); Hemoglobin 11.8 g/dL (14.0-18.0); Mean Corpuscular HGB CONC 31.6 g/dL (32.0-36.0); Mean Corpuscular Volume 94.9 fL (78.0-98.0); Mean Platelet Volume 10.9 fL (7.4-10.4); Platelet Count 144 thou/uL (130-400); Red Blood Cell (RBC) Count 3.94 mill/uL (4.70-6.10); White Blood Cell (WBC) Count 5.5 thou/uL (4.8-10.8)
[2018-08-26 00:19] LABS: ALT (SGPT) 9 U/L (8-55); AST (SGOT) 12 U/L (5-34); Albumin 4.1 g/dL (3.5-5.0); Alkaline Phosphatase 122 U/L (40-150); Anion Gap 22 mmol/L (10-20); BUN (Urea Nitrogen) 37 mg/dL (8.9-20.6); Bilirubin, Total 0.4 mg/dL (0.2-1.2); Calc. Creatinine Clearance 0 mL/min (70-130); Calcium 9.3 mg/dL (7.8-10.44); Carbon Dioxide 27 mmol/L (22-29); Chloride 92 mmol/L (98-107); Estimated GFR-MDRD 13; Globulin 3.8 g/dL (2.4-3.5); Glucose 428 mg/dL (70-105); Potassium 4.2 mmol/L (3.5-5.1); Protein, Total 7.9 g/dL (6.0-8.3); Sodium 137 mmol/L (136-145)
== END 2018-08-26 00:45 | disposition home or self-care (01) ==
LOC: ERS 22:16
DX: F16.129 Hallucinogen abuse with intoxication, unspecified (principal); E10.65 Type 1 diabetes mellitus with hyperglycemia; E78.5 Hyperlipidemia, unspecified; I12.0 Hypertensive chronic kidney disease with stage 5 chronic kidney disease or end stage renal disease; E10.22 Type 1 diabetes mellitus with diabetic chronic kidney disease; N18.6 End stage renal disease; F17.210 Nicotine dependence, cigarettes, uncomplicated; Z99.2 Dependence on renal dialysis; Z86.73 Personal history of transient ischemic attack (TIA), and cerebral infarction without residual deficits; Z79.899 Other long term (current) drug therapy
CPT/HCPCS: 36416; 80053; 85025; 96374; J1815

== ENCOUNTER 2018-09-07 07:57 | Inpatient (IN) | payer MEDICARE, MEDICAID ==
[2018-09-07] MEDS ORDERED: Acetaminophen 500 MG TAB ONE ×2 (08:38→23:34)
[2018-09-07 08:58] LABS: Hemoglobin 10.4 g/dL (14.0-18.0); Mean Corpuscular HGB CONC 32.4 g/dL (32.0-36.0); Mean Corpuscular Hemoglobin 29.4 pg (27.0-31.0); Mean Corpuscular Volume 90.6 fL (78.0-98.0); RBC Distribution Width 13.9 % (11.5-14.5); Red Blood Cell (RBC) Count 3.55 mill/uL (4.70-6.10); White Blood Cell (WBC) Count 14.2 thou/uL (4.8-10.8)
[2018-09-07 09:23] LABS: ALT (SGPT) 11 U/L (8-55); AST (SGOT) 22 U/L (5-34); Albumin 3.8 g/dL (3.5-5.0); Alkaline Phosphatase 97 U/L (40-150); Anion Gap 26 mmol/L (10-20); BUN (Urea Nitrogen) 76 mg/dL (8.9-20.6); Bilirubin, Total 0.6 mg/dL (0.2-1.2); CK (CPK) 236 U/L (30-200); Calc. Creatinine Clearance 0 mL/min (70-130); Calcium 9.5 mg/dL (7.8-10.44); Carbon Dioxide 23 mmol/L (22-29); Chloride 88 mmol/L (98-107); Estimated GFR-MDRD 5; Globulin 3.9 g/dL (2.4-3.5); Glucose 431 mg/dL (70-105); Lipase 7 U/L (8-78); Protein, Total 7.7 g/dL (6.0-8.3); Sodium 130 mmol/L (136-145)
[2018-09-07 09:26] LABS: Band 23 % (5-11); Lymphocytes 4 % (21-51); MDiff Complete? YES; Mean Platelet Volume 11.9 fL (7.4-10.4); Monocytes 2 % (0-10); Neutrophil 71 % (42-75); PLT Morphology Comment Appears Decreased; Platelet Count 114 thou/uL (130-400)
[2018-09-07 09:27] LABS: Potassium 7.4 mmol/L (3.5-5.1)
[2018-09-07 09:28] LABS: CKMB 1.8 ng/mL (0-6.6); Troponin I 0.015 ng/mL (< 0.028)
[2018-09-07] MEDS ORDERED: Calcium Gluc 4.6 MEQ/10 ML (100 MG/ML) ONE (09:32)
[2018-09-07] MEDS ORDERED: Sodium Bicarb 50 MEQ/50 ML Abboject 8.4% SYRINGE ONE (09:39)
[2018-09-07] MEDS ORDERED: Insulin Regular 300 UNITS/3 ML VIAL ONE (09:39)
--- NOTE | 2018-09-07 10:05 | RAD ---
CHEST 1 VIEW: COMPARISON: 06/28/2018. HISTORY: Chest pain. Two days of weakness. The patient is not feeling well. FINDINGS: Normal cardiac silhouette. The pulmonary vessels are within normal limits. There are hazy opacities in the lung bases along with interstitial opacification suggesting a combination of pleural and pare nchymal changes. There is no pneumothorax or osseous abnormality. Multiple stents project over the left upper extremity and left hemithorax. IMPRESSION: Pleural and parenchymal changes of the lung bases. POS: [facility]
--- NOTE | 2018-09-07 10:30 | PDOC.FPRHP ---
- History of Present Illness Chief Complaint: "feeling bad" History of Present Illness: Pt presents to ED with several complaints but not one chief complaint. Pt reports missing dialysis appointment on Monday due to having some diarrhea that has since resolved. Pt has felt more SOB since missing dialysis, exacerbated by exertion and by laying flat though he reports a baseline SOB at all times. No fever/chills, no sick contacts. He also complains of L sided rib pain after recently falling on to his ribs from his wheelchair. Pt reports he has recently been losing his balance more often and falling out of chair. He did not lose consciousness after fall. ED Course: Levaquin and cefepime, Calcium gluconate, novolin, CXR - Allergies/Adverse Reactions Allergies Allergy/AdvReac Type Severity Reaction Status Date / Time Penicillins Allergy Unknown Verified 06/02/18 19:42 - Home Medications Medication Instructions Recorded Confirmed Type Sevelamer Carbonate [Renvela] 3 tab PO TID-WM 09/08/15 06/02/18 History Amlodipine Besylate [amLODIPine 10 mg PO DAILY 09/02/16 09/07/18 History Besylate] Cinacalcet HCl [Sensipar] 60 mg PO DAILY 09/02/16 06/02/18 History hydrALAZINE [Apresoline] 25 mg PO TID 09/02/16 09/07/18 History Sertraline HCl 25 mg PO DAILY 03/03/17 06/02/18 History HumaLOG [HumaLOG Vial] 3 unit SC TID-WM PRN #0 05/24/18 06/02/18 Rx HumaLOG [HumaLOG Vial] 3 units SC TID-WM vial 06/04/18 09/07/18 Rx Insulin Glargine [Lantus Vial] 12 units SC QAM 30 Days #1 vial 06/04/18 Rx Pre-Filled Syringe 12 unit SC HS #1 pen 06/04/18 Rx levETIRAcetam [Keppra] 500 mg PO BID #60 tab 06/04/18 09/07/18 Rx - History PMHx: DM1, ESRD on dialysis MWF, HTN, CHF PSHx: R BKA FHx: DM, HTN, lymphoma, breast cancer Social: 10pack year smoking hx, active smoker. Drinks EtOH infrequently, smokes marijuana regularly and uses PCP - Review of Systems General: denies: fever/chills, fatigue Eyes: denies: eye pain, vision changes ENT: denies: nasal congestion, rhinorrhea Respiratory: reports: shortness of breath, exercise intolerance Cardiovascular: denies: chest pain, palpitation Gastrointestinal: denies: nausea, vomiting Skin: denies: rashes, lesions Musculoskeletal: reports: pain, tenderness (L ribs) Neurological: denies: syncope, seizure Psychological: denies: anxiety, depression - Vital signs BP: [114/72] HR: [108] RR: [18] Tmax: [101.1] Pox: [95]% on [2L O2] Wt: [65kg ] - Physical Exam Constitutional: awake, alert and oriented, well developed HEENT: normocephalic and atraumatic, EOMI, grossly normal vision, grossly normal hearing, MMM Neck: trachea midline, no JVD Chest: no-tender to palpation Heart: RRR, normal S1/S2 Lungs: CTAB, no respiratory distress Abdomen: soft, non-tender Musculoskeletal: normal tone, other (R BKA) Neurological: no focal deficit, normal sensation Skin: no rash/lesions, good turgor Heme/Lymphatic: no purpura, no petechia Psychiatric: normal mood and affect, intact recent and remote memory FMR H&P: Results - Labs Result Diagrams: 09/07/18 08:29 09/07/18 08:29 Lab results: WBC 14.2 thou/uL (4.8-10.8) H 09/07/18 08:29 Hgb 10.4 g/dL (14.0-18.0) L 09/07/18 08:29 Hct 32.1 % (42.0-52.0) L 09/07/18 08:29 MCV 90.6 fL (78.0-98.0) 09/07/18 08:29 Plt Count 114 thou/uL (130-400) L 09/07/18 08:29 Band Neuts % (Manual) 23 % (5-11) H 09/07/18 08:29 Sodium 130 mmol/L (136-145) L 09/07/18 08:29 Potassium 7.4 mmol/L (3.5-5.1) H* 09/07/18 08:29 Chloride 88 mmol/L (98-107) L 09/07/18 08:29 Carbon Dioxide 23 mmol/L (22-29) 09/07/18 08:29 BUN 76 mg/dL (8.9-20.6) H 09/07/18 08:29 Creatinine 13.68 mg/dL (0.6-1.3) H 09/07/18 08:29 Glucose 431 mg/dL (70-105) H 09/07/18 08:29 Lactic Acid 1.3 mmol/L (0.5-2.2) 09/07/18 08:29 Calcium 9.5 mg/dL (7.8-10.44) 09/07/18 08:29 Total Bilirubin 0.6 mg/dL (0.2-1.2) 09/07/18 08:29 AST 22 U/L (5-34) 09/07/18 08:29 ALT 11 U/L (8-55) 09/07/18 08:29 Alkaline Phosphatase 97 U/L (40-150) 09/07/18 08:29 Creatine Kinase 236 U/L (30-200) H 09/07/18 08:29 CK-MB (CK-2) 1.8 ng/mL (0-6.6) 09/07/18 08:29 B-Natriuretic Peptide 1278.8 pg/mL (0-100) H 09/07/18 08:29 Serum Total Protein 7.7 g/dL (6.0-8.3) 09/07/18 08:29 Albumin 3.8 g/dL (3.5-5.0) 09/07/18 08:29 Lipase 7 U/L (8-78) L 09/07/18 08:29 FMR H&P: A/P - Problem List (1) Sepsis due to pneumonia Current Visit: Yes Status: Acute Code(s): J18.9 - PNEUMONIA, UNSPECIFIED ORGANISM; A41.9 - SEPSIS, UNSPECIFIED ORGANISM (2) Hyperkalemia Current Visit: No Status: Acute Priority: High Code(s): E87.5 - HYPERKALEMIA (3) Diabetes mellitus type 1 Current Visit: No Status: Chronic Code(s): E10.9 - TYPE 1 DIABETES MELLITUS WITHOUT COMPLICATIONS (4) ESRD (end stage renal disease) on dialysis Current Visit: No Status: Chronic Code(s): N18.6 - END STAGE RENAL DISEASE; Z99.2 - DEPENDENCE ON RENAL DIALYSIS (5) Hypertension Current Visit: No Status: Chronic Code(s): I10 - ESSENTIAL (PRIMARY) HYPERTENSION Qualifiers: Hypertension type: essential hypertension Qualified Code(s): I10 - Essential (primary) hypertension (6) Non-compliance with renal dialysis Current Visit: No Status: Chronic Code(s): Z91.15 - PATIENT'S NONCOMPLIANCE WITH RENAL DIALYSIS (7) Polysubstance abuse Current Visit: No Status: Chronic Priority: Low Code(s): F19.10 - OTHER PSYCHOACTIVE SUBSTANCE ABUSE, UNCOMPLICATED - Plan Sepsis 2/2 Presumed PNA A- Infiltrate vs fluid on CXR, pt was febrile with Tmax 101.1 w/ elevated WBC P- continue levaquin and cefepime - Check Procal - BCx obtained in ER - PRN duonebs - Supplemental O2 prn Hyperkalemia 2/2 non-compliance w/ hemodialysis in the setting of ESRD A- Nephro consulted from the ER for emergent Dialysis. No evidence of EKG changes noted from ER P- Cont. w/ MWF dialysis per nephro - AM BMP Rib Contusion A- Pt complains of pain but has no evidence of fracture on CXR P- tylenol prn T1DM - Cont. w/ home dose of insulin w/ moderate SSI and ACH/HS accuchecks - Goal BG 140-180 - Check A1c HLD - Pt unable to provide any home medications - med reconciliation - home meds HTN - med reconciliation - home meds Drug Abuse - MD aware, housing counselor for cessation CHF - med reconciliation - home meds CODE STATUS: Full Code PPx: Heparin Diet: Renal/CC FMR H&P: Upper Level - Pertinent history 37 y/o M well known to this service w/ PMHx of ESRD on MWF dialysis who missed his W and F dialysis presents for evaluation of weakness and feeling bad with increased SOB which started after he missed his Monday dialysis. Also reports a few day hx of cough as well and fall a few days ago onto his left side now w/ left sided chest wall pain. Reports he missed dialysis 2/2 diarrhea. - Pertinent findings GEN: Laying in bed on left side in NAD CARDS: Tachycardic, Reg rhythm, no murmur, rub, or gallop PULM: CTA-B/L, no rhonci, rales, or wheezes. Tenderness to palpation L-Ant Chest GI: Soft, NTTP, no rigidity, rebound, or guarding, BSx4 EXT: R-LE BKA - Plan Date/Time: 09/07/18 1030 I, [], have evaluated this patient and agree with findings/plan as outlined by paid intern resident. Pertinent changes/additions are listed here. WBC 14.2 Hgb 10.2 Hct 32.1 Plt 114 BNP 1278.8 CK 236 Na 130 K 7.4 Chl 88 BUN 76 Cr 13.68 Glu 431 LA 1.3 EKG Sinus tachycardia, No peaked T-waves Trop-I 0.015 CXR Pleural and parenchymal changes bases b/l 37 y/o F w/: 1. Sepsis 2/2 Presumed PNA - Infiltrate vs fluid on CXR - However, in the setting of elevated WBC and bandemia and fever to 101.1 F will cont. w/ broad spectrum abx - Check Procal - BCx obtained in ER - GALEN and PRN Nebs - Supplemental O2 to maintain sats >92% 2. Hyperkalemia 2/2 non-compliance w/ hemodialysis in the setting of ESRD - Nephro consulted from the ER for emergent Dialysis - Cont. w/ MWF dialysis per nephro - No evidence of EKG changes noted from ER - Repeat BMP s/p dialysis to monitor resolution of electrolyte abnormalities 3. Rib Contusion - No evidence of fracture on CXR - Will treat w/ PO tylenol in setting of ESRD 4. T1DM - Cont. w/ home dose of insulin w/ moderate SSI and ACH/HS accuchecks - Goal BG 140-180 in setting of #1 - Check A1c 5. HLD - Cont. w/ statin 6. HTN - Cont. w/ home BP meds 7. Drug Abuse - Counseling - ASE protocol 8. Other Chronic Problems - As described above in paid intern note CODE STATUS: Full Code PPx: Heparin Diet: Renal/CC/HH Assessment and Plan Discussed w/ Dr. Stroud who is in agreement Attending Addendum - Attending Addendum Date/Time: 09/07/18 1005 I personally evaluated the patient and discussed the management with Dr. Lazar. I agree with the History, Examination, Assessment and Plan documented above with any addition or exceptions noted below. The patient presented to the ER with rib pain after falling a few times this week. He also described a general malaise. He missed dialysis on 09/05 and would be due again today. He noted shortness of breath that began after missing dialysis. In the ER he was found to be hyperkalemic. He had a fever, tachycardia and elevated wbc and possible pneumonia on chest xr. Nephrology has been consulted for emergent dialysis. He will continue on IV antibiotics. Check procalcitonin. Counseled on compliance with dialysis. Trend electrolytes. Admit to IMCU.
[2018-09-07] MEDS ORDERED: Cefepime 2 GM VIAL ONE (10:38)
[2018-09-07] MEDS ORDERED: Dextrose 5% in Water 1,000 ML IV PRN (15:43)
[2018-09-07] MEDS ORDERED: Dextrose 50% Abboject 50 ML SYRINGE SLOW IVP PRN (15:43)
[2018-09-07] MEDS ORDERED: Acetaminophen 325 MG TAB PO PRN (15:43)
[2018-09-07] MEDS ORDERED: Guaifenesin DM 100-10/5 ML UDCUP PO PRN (15:43)
[2018-09-07] MEDS ORDERED: Ondansetron PF 4 MG/2 ML Vial IVP PRN (15:43)
[2018-09-07] MEDS ORDERED: Insulin Regular 300 UNITS/3 ML VIAL SC PRN (15:43)
[2018-09-07] MEDS ORDERED: hydrALAZINE 25 MG TAB PO SCH (16:00)
[2018-09-07] MEDS ORDERED: Heparin 5,000 UNITS/ML VIAL SC SCH (16:00)
[2018-09-07] MEDS ORDERED: Cefepime 1 GM in Sodium Chloride 0.9% 100 ML IVPB SCH (16:30)
[2018-09-07] MEDS: Nicotine 14 MG PATCH TD SCH (17:18)
[2018-09-07 17:28] LABS: Anion Gap 24 mmol/L (10-20); BUN (Urea Nitrogen) 32 mg/dL (8.9-20.6); Calc. Creatinine Clearance 13 mL/min (70-130); Calcium 9.9 mg/dL (7.8-10.44); Carbon Dioxide 26 mmol/L (22-29); Chloride 92 mmol/L (98-107); Estimated GFR-MDRD 11; Glucose 175 mg/dL (70-105); Potassium 4.9 mmol/L (3.5-5.1); Sodium 137 mmol/L (136-145)
[2018-09-07] MEDS: HumaLOG 300 UNITS/3 ML VIAL SC SCH (17:54)
[2018-09-07] MEDS: Lactated Ringer's 1,000 ML IV SCH (17:57)
[2018-09-07] MEDS ORDERED: Cefepime 2 GM in Sodium Chloride 0.9% 100 ML IVPB SCH (18:00)
[2018-09-07] MEDS: levETIRAcetam 500 MG TAB PO SCH (20:40)
[2018-09-07] MEDS: Heparin 5,000 UNITS/ML VIAL SC SCH (20:40)
[2018-09-07] MEDS: hydrALAZINE 25 MG TAB PO SCH (20:41)
[2018-09-07] MEDS ORDERED: traMADol HCl 50 MG TAB PO PRN (22:26)
[2018-09-07] MEDS ORDERED: Vancomycin HCl 1.25 GM in Sodium Chloride 0.9% 250 ML 250 ML IVPB SCH (23:00)
[2018-09-07] MEDS ORDERED: traMADol HCl 50 MG TAB ONE (23:50)
[2018-09-07] MEDS ORDERED: Acetaminophen 325 MG TAB PO SCH (23:59)
--- NOTE | 2018-09-08 00:01 | CON ---
DATE OF CONSULTATION: 09/07/2018 NEPHROLOGY CONSULTATION NOTE CONSULTING PHYSICIAN: Dr. Lazar. REASON FOR CONSULT: Hyperkalemia. REASON FOR ADMISSION: Feeling weak. HISTORY OF PRESENT ILLNESS: This is a 37-year-old male with history of end-stage renal disease, nonc ompliance, hypertension, and type 2 diabetes who came to the hospital with weakness. He missed dialy sis also and was found to have hyperkalemia. Nephrology consulted for maintenance hemodialysis. The patient also having diarrhea. PAST MEDICAL HISTORY: Positive for type 1 diabetes, end-stage renal disease, hypertension, CHF. PSHH: Right BKA, dialysis access placement. HOME MEDICATIONS: Include Humalog, hydralazine, Keppra, amlodipine, Renvela, sertraline, Lantus, Hum alog, Sensipar. ALLERGIES: PENICILLIN. SOCIAL HISTORY: History of drug abuse and smoking history present and frequent alcohol use. FAMILY HISTORY: Positive for breast cancer and diabetes. REVIEW OF SYSTEMS: The following complete review of systems was negative, unless otherwise mentioned in the HPI or below: Constitutional: Weight loss or gain, ability to conduct usual activities. Skin: Rash, itching. Eyes: Double vision, pain. ENT/Mouth: Nose bleeding, neck stiffness, pain, tenderness. Cardiovascular: Palpitations, dyspnea on exertion, orthopnea. Respiratory: Shortness of breath, wheezing, cough, hemoptysis, fever or night sweats. Gastrointestinal: Poor appetite, abdominal pain, heartburn, nausea, vomiting, constipation, or diarr hea. Genitourinary: Urgency, frequency, dysuria, nocturia. Musculoskeletal: Pain, swelling. Neurologic/Psychiatric: Anxiety, depression. Allergy/Immunologic: Skin rash, bleeding tendency. PHYSICAL EXAMINATION: GENERAL: Reveals a well-built male in no apparent distress. VITAL SIGNS: Temperature 99.7, pulse 127, respiratory rate 18, blood pressure 144/71. HEENT: Atraumatic, normocephalic. Oral mucosa is moist. NECK: Supple, no masses. CARDIOVASCULAR: S1 and S2 heard. Rate and rhythm regular. RESPIRATORY: Clear to auscultation. MUSCULOSKELETAL: 1+ edema. DERMATOLOGIC: No skin rash. NEUROLOGIC: Alert, awake. PSYCHIATRIC: . LABORATORY DATA: White blood cell count 10.4, potassium 7.4, BUN 76, creatinine 13.368. BNP is 1230. ASSESSMENT AND PLAN: 1. End-stage renal disease on dialysis. 2. Hyperkalemia. We will have emergent dialysis. 3. Metabolic acidosis. 4. Anemia . 5. We will continue on dialysis as tolerated.
[2018-09-08] MEDS ORDERED: Vancomycin HCl 750 MG in Sodium Chloride 0.9% 250 ML 250 ML IVPB PRN (00:04)
[2018-09-08] MEDS ORDERED: Vancomycin HCl 1 GM in Premix Bag 1 BAG IVPB PRN (00:04)
[2018-09-08] MEDS ORDERED: Vancomycin HCl 250 MG in Sodium Chloride 0.9% 100 ML IVPB PRN (00:05)
[2018-09-08] MEDS ORDERED: HOLD VANCOMYCIN FOR LEVEL >20 FS PRN (00:05)
[2018-09-08] MEDS ORDERED: Vancomycin HCl 500 MG in Sodium Chloride 0.9% 100 ML IVPB PRN (00:05)
[2018-09-08] MEDS: Lactated Ringer's 1,000 ML IV SCH ×3 (04:13→23:40)
[2018-09-08 05:15] LABS: Anion Gap 21 mmol/L (10-20); BUN (Urea Nitrogen) 40 mg/dL (8.9-20.6); Calc. Creatinine Clearance 12 mL/min (70-130); Calcium 9.4 mg/dL (7.8-10.44); Carbon Dioxide 23 mmol/L (22-29); Chloride 94 mmol/L (98-107); Estimated GFR-MDRD 10; Glucose 176 mg/dL (70-105); Potassium 5.2 mmol/L (3.5-5.1); Sodium 133 mmol/L (136-145)
--- NOTE | 2018-09-08 05:31 | PDOC.FM ---
Addendum entered and electronically signed by Mela Hardwick MD 09/08/18 10:04: Append: Sepsis 2/2 to Staph Aureus Bacteremia (not MRSA) Original Note: - Subjective Subjective: Feeling well today, no SOB or chest pain. L arm swollen. Patient states that this has happened to him before. - Objective Vital Signs & Weight: Vital Signs (12 hours) Temp Pulse Resp BP BP Pulse Ox 09/08/18 04:00 98.4 F 96 14 132/68 100 09/07/18 23:00 99.5 F 113 H 14 127/89 99 09/07/18 20:41 108 H 103/60 09/07/18 20:00 100 09/07/18 19:43 98.9 F 103 H 12 93/59 L 100 09/07/18 17:58 118 H Weight Weight 65.7 kg Result Diagrams: 09/08/18 04:30 09/08/18 04:30 <Mela Hardwick - Last Filed: 09/08/18 07:51> - Objective Vital Signs & Weight: Vital Signs (12 hours) Temp Pulse Resp BP Pulse Ox 09/08/18 07:43 98.7 F 99 12 137/80 100 09/08/18 04:00 98.4 F 96 14 132/68 100 Weight Weight 65.7 kg I&O: 09/07/18 09/08/18 09/09/18 06:59 06:59 06:59 Intake Total 1900 Output Total 2 Balance 1898 Result Diagrams: 09/08/18 04:30 09/08/18 04:30 <Juliet Stroud - Last Filed: 09/08/18 11:07> Phys Exam - Physical Examination Constitutional: NAD Neck: no nodes, supple Respiratory: no wheezing, no rales, clear to auscultation bilateral Cardiovascular: RRR, no significant murmur Gastrointestinal: soft, non-tender, positive bowel sounds Large Edema and swelling of left arm Psychiatric: normal affect, A&O x 3 <Mela Hardwick - Last Filed: 09/08/18 07:51> Dx/Plan (1) Sepsis due to pneumonia Code(s): J18.9 - PNEUMONIA, UNSPECIFIED ORGANISM; A41.9 - SEPSIS, UNSPECIFIED ORGANISM Status: Acute (2) Hyperglycemia due to type 1 diabetes mellitus Code(s): E10.65 - TYPE 1 DIABETES MELLITUS WITH HYPERGLYCEMIA Status: Chronic (3) Hyperkalemia Code(s): E87.5 - HYPERKALEMIA Status: Acute (4) ESRD (end stage renal disease) on dialysis Code(s): N18.6 - END STAGE RENAL DISEASE; Z99.2 - DEPENDENCE ON RENAL DIALYSIS Status: Chronic (5) Hypertension Code(s): I10 - ESSENTIAL (PRIMARY) HYPERTENSION Status: Chronic Qualifiers: Hypertension type: essential hypertension Qualified Code(s): I10 - Essential (primary) hypertension (6) Non-compliance with renal dialysis Code(s): Z91.15 - PATIENT'S NONCOMPLIANCE WITH RENAL DIALYSIS Status: Chronic (7) Polysubstance abuse Code(s): F19.10 - OTHER PSYCHOACTIVE SUBSTANCE ABUSE, UNCOMPLICATED Status: Chronic - Plan Plan: Sepsis 2/2 to MRSA - Infiltrate vs fluid on CXR on admission, pt was febrile with Tmax 101.1 w/ elevated WBC - L arm swollen today, possibly a cellulitis - continue levaquin and cefepime, vancomycin added overnight for MRSA coverage; consider stopping levaquin today - Procal of 42.43 - BCx + for MRSA - PRN duonebs - Supplemental O2 prn Metabolic Acidosis 2/2 sepsis - Continue monitoring BMPs Hyperkalemia 2/2 non-compliance w/ hemodialysis in the setting of ESRD - Nephro consulted from the ER for emergent Dialysis. No evidence of EKG changes noted from ER - Cont. w/ MWF dialysis per nephro, appreciate nephrology recs - K of 5.2 this AM Rib Contusion - Pt complains of pain but has no evidence of fracture on CXR - tylenol prn T1DM - Cont. w/ home dose of insulin w/ moderate SSI and ACH/HS accuchecks - Goal BG 140-180 - A1c pending HLD - Pt unable to provide any home medications - med reconciliation - home meds HTN - med reconciliation - home meds Drug Abuse - aware, debt and budget counselor for cessation CHF - med reconciliation - home meds Anemia of Chronic Disease 2/2 ESRD Thrombocytopenia 2/2 ESRD CODE STATUS: Full Code PPx: Heparin Diet: Renal/CC <Mela Hardwick - Last Filed: 09/08/18 07:51> (1) Sepsis due to pneumonia Code(s): J18.9 - PNEUMONIA, UNSPECIFIED ORGANISM; A41.9 - SEPSIS, UNSPECIFIED ORGANISM Status: Acute (2) Hyperkalemia Code(s): E87.5 - HYPERKALEMIA Status: Acute (3) Diabetes mellitus type 1 Code(s): E10.9 - TYPE 1 DIABETES MELLITUS WITHOUT COMPLICATIONS Status: Chronic (4) ESRD (end stage renal disease) on dialysis Code(s): N18.6 - END STAGE RENAL DISEASE; Z99.2 - DEPENDENCE ON RENAL DIALYSIS Status: Chronic (5) Hypertension Code(s): I10 - ESSENTIAL (PRIMARY) HYPERTENSION Status: Chronic Qualifiers: Hypertension type: essential hypertension Qualified Code(s): I10 - Essential (primary) hypertension (6) Non-compliance with renal dialysis Code(s): Z91.15 - PATIENT'S NONCOMPLIANCE WITH RENAL DIALYSIS Status: Chronic (7) Polysubstance abuse Code(s): F19.10 - OTHER PSYCHOACTIVE SUBSTANCE ABUSE, UNCOMPLICATED Status: Chronic <Juliet Stroud - Last Filed: 09/08/18 11:07> Attending Addendum - Attending Addendum Date/Time: 09/08/18 1106 I personally evaluated the patient and discussed the management with Dr. Hardwick. I agree with the History, Examination, Assessment and Plan documented above with any addition or exceptions noted below. This morning pt's left upper extremity is swollen, will get u/s. 2/2 blood cultures positive for staph aureus. He is now on vanc and cefepime for bacteremia and pneumonia. Await sensitivities. Repeat CXR after dialysis today. <Juliet Stroud - Last Filed: 09/08/18 11:07>
[2018-09-08] MEDS: Acetaminophen 500 MG TAB PO SCH ×5 (05:33→23:40)
[2018-09-08 05:41] LABS: Band 31 % (5-11); Hemoglobin 8.9 g/dL (14.0-18.0); Lymphocytes 4 % (21-51); MDiff Complete? YES; Mean Corpuscular Hemoglobin 28.6 pg (27.0-31.0); Mean Corpuscular Volume 92.4 fL (78.0-98.0); Metamyelocyte 1 % (0-0); Monocytes 9 % (0-10); Neutrophil 55 % (42-75); PLT Morphology Comment Appears Decreased; Platelet Count 78 thou/uL (130-400); RBC Distribution Width 13.9 % (11.5-14.5); RBC Morphology Normal; Red Blood Cell (RBC) Count 3.11 mill/uL (4.70-6.10); White Blood Cell (WBC) Count 12.4 thou/uL (4.8-10.8)
[2018-09-08 07:00] LABS: Hemoglobin A1c 10.7 % (4.0-6.0)
[2018-09-08] MEDS ORDERED: Vancomycin Sliding Scale 1 EACH FS SCH (09:00)
--- NOTE | 2018-09-08 12:37 | PRG ---
DATE OF SERVICE: 09/08/2018 SUBJECTIVE: Patient was seen and examined at bedside and overnight events noted. Patient denies any shortness of breath or chest pain or palpitation. No history of nausea or vomiting or diarrhea or f ever or chills or cramps. OBJECTIVE: GENERAL: This is a well-built male, in no apparent distress. VITAL SIGNS: Temperature 98.7, pulse 90, respiratory rate 12, blood pressure 137/80. HEENT: Atraumatic, normocephalic. Oral mucosa is moist. NECK: Supple. CARDIOVASCULAR: S1, S2 heard. Rate and rhythm regular. RESPIRATORY: Clear to auscultation. GASTROINTESTINAL: Abdomen is soft. MUSCULOSKELETAL: No tenderness. No edema. DERMATOLOGIC: No skin rash. NEUROLOGIC: Alert and awake and oriented x3. No focal neurologic deficits. Moving all the extremit ies. PSYCHIATRIC: Mood and affect normal. LABORATORY DATA: Potassium is 5.2, BUN is 40, creatinine 7.7. ASSESSMENT AND PLAN: 1. End-stage renal disease. Continue dialysis Monday, Monday and Monday. 2. Hyperkalemia. Limit potassium. 3. Metabolic acidosis. 4. Anemia. 5. Hypertension, stable. 6. We will continue on dialysis as tolerated.
[2018-09-08] MEDS: HumaLOG 300 UNITS/3 ML VIAL SC SCH ×3 (13:28→17:50)
[2018-09-08 13:29] LABS: Vancomycin, Random 17.5 ug/mL (See Comment)
[2018-09-08] MEDS: levETIRAcetam 500 MG TAB PO SCH ×2 (13:29→20:44)
[2018-09-08] MEDS: Amlodipine 10 MG TAB PO SCH (13:30)
[2018-09-08] MEDS: hydrALAZINE 25 MG TAB PO SCH ×3 (13:30→20:46)
[2018-09-08] MEDS: Nicotine 14 MG PATCH TD SCH (13:39)
[2018-09-08] MEDS: Heparin 5,000 UNITS/ML VIAL SC SCH (13:39)
[2018-09-08] MEDS ORDERED: Vancomycin HCl 250 MG in Sodium Chloride 0.9% 100 ML IVPB SCH (14:00)
[2018-09-08] MEDS ORDERED: Cefepime 0.5 GM in Sodium Chloride 0.9% 100 ML IVPB SCH (16:00)
--- NOTE | 2018-09-08 16:01 | ULT ---
LEFT UPPER EXTREMITY VENOUS DOPPLER ULTRASOUND: 09/08/18 COMPARISON: None. HISTORY: Left upper extremity swelling/edema, assess for DVT. TECHNIQUE: Multiplanar finn scale sonographic imaging of the venous structures of the left upper extremity obtai tee with color flow and spectral analysis. FINDINGS: Left internal jugular vein, left subclavian vein, and left axillary vein are patent. There is a paten t dialysis graft in the left upper extremity. Left basilic vein, cephalic vein, radial vein, ulnar ve in, and brachial vein are patent. IMPRESSION: Patent venous structures of the left upper extremity. No evidence for DVT. POS: [facility]
--- NOTE | 2018-09-08 17:39 | RAD ---
PORTABLE UPRIGHT FRONTAL CHEST RADIOGRAPH 09/08/18 COMPARISON: 09/07/18 HISTORY: Re-evaluate pulmonary parenchymal abnormalities on recent radiograph, history of chest pain. FINDINGS: There is stent material overlying the left axillary region and left lung apex. Heart and mediastinal contours are stable. There is no pneumothorax or large volume pleural effusion. There is mild pulmona ry vascular congestion and mild perihilar interstitial prominence. Interstitial opacity in perihilar regions and both lung bases seen on the prior examination are improved. IMPRESSION: Findings suggesting improving interstitial edema. POS: [facility]
--- NOTE | 2018-09-09 05:27 | PDOC.FM ---
Addendum entered and electronically signed by Mela Hardwick MD 09/09/18 07:27: Patient has previously documented 2/6 systolic murmur on 06/04/18. Original Note: - Subjective Subjective: Pt has a small headache which he took tylenol for this morning, still has rib pain on back left side. Otherwise he states he is feeling well. He had 2-3 episodes of diarrhea yesterday, states he has had loose stools for months. L arm still edematous, states that this happens about once a month. - Objective Vital Signs & Weight: Vital Signs (12 hours) Temp Pulse Resp BP BP Pulse Ox 09/09/18 04:00 98.7 F 89 17 91/49 L 94 L 09/09/18 00:00 98.7 F 93 18 99/57 L 95 09/08/18 20:46 98 119/58 L 09/08/18 20:00 100 09/08/18 19:32 98.4 F 95 17 96/43 L 100 09/08/18 18:48 96 18 93/52 L 92 L Weight Weight 65.7 kg I&O: 09/07/18 09/08/18 09/09/18 06:59 06:59 06:59 Intake Total 1900 1137 Output Total 2 0 Balance 1898 1137 Result Diagrams: 09/08/18 04:30 09/08/18 04:30 <Mela Hardwick - Last Filed: 09/09/18 07:11> - Objective Vital Signs & Weight: Vital Signs (12 hours) Temp Pulse Pulse Resp BP BP BP 09/09/18 11:44 98.0 F 95 15 09/09/18 10:07 93 09/09/18 10:06 93 09/09/18 09:39 86 115/63 118/58 L 09/09/18 07:32 09/09/18 07:19 98.8 F 93 19 93/53 L 09/09/18 04:00 98.7 F 89 17 BP BP Pulse Ox Pulse Ox 09/09/18 11:44 103/56 L 09/09/18 10:07 09/09/18 10:06 09/09/18 09:39 96 09/09/18 07:32 94 L 09/09/18 07:19 09/09/18 04:00 91/49 L 94 L Weight Weight 64.7 kg I&O: 09/08/18 09/09/18 09/10/18 06:59 06:59 06:59 Intake Total 3500 2697 Output Total 2 0 Balance 8998 2697 Result Diagrams: 09/09/18 11:10 09/09/18 11:10 <MaximusJuliet - Last Filed: 09/09/18 14:41> Phys Exam - Physical Examination Constitutional: NAD HEENT: moist MMs Respiratory: no wheezing, clear to auscultation bilateral Cardiovascular: RRR 1/6 systolic murmur Gastrointestinal: soft, non-tender, positive bowel sounds Musculoskeletal: pulses present L arm edematous, no erythema Moves all limbs Psychiatric: normal affect <WestleyjayshreeRadhaMela - Last Filed: 09/09/18 07:11> Dx/Plan (1) Sepsis due to pneumonia Code(s): J18.9 - PNEUMONIA, UNSPECIFIED ORGANISM; A41.9 - SEPSIS, UNSPECIFIED ORGANISM Status: Acute (2) Hyperglycemia due to type 1 diabetes mellitus Code(s): E10.65 - TYPE 1 DIABETES MELLITUS WITH HYPERGLYCEMIA Status: Chronic (3) Hyperkalemia Code(s): E87.5 - HYPERKALEMIA Status: Acute (4) ESRD (end stage renal disease) on dialysis Code(s): N18.6 - END STAGE RENAL DISEASE; Z99.2 - DEPENDENCE ON RENAL DIALYSIS Status: Chronic (5) Hypertension Code(s): I10 - ESSENTIAL (PRIMARY) HYPERTENSION Status: Chronic Qualifiers: Hypertension type: essential hypertension Qualified Code(s): I10 - Essential (primary) hypertension (6) Non-compliance with renal dialysis Code(s): Z91.15 - PATIENT'S NONCOMPLIANCE WITH RENAL DIALYSIS Status: Chronic (7) Polysubstance abuse Code(s): F19.10 - OTHER PSYCHOACTIVE SUBSTANCE ABUSE, UNCOMPLICATED Status: Chronic - Plan Plan: Sepsis 2/2 to bacteremia from Staph Aureus, 2/2 to presumed pneumonia vs cellulitis vs other - Infiltrate vs fluid on CXR on admission, pt was febrile with Tmax 101.1 w/ elevated WBC; L arm swollen, US negative for LUE DVT - Procal of 42.43 - BCx + for MRSA - continue cefepime, vancomycin; levaquin discontinued - PRN duonebs - Supplemental O2 prn - CXR 09/08 showed improving interstitial edema - Systolic 1/6 murmur, consider echo today Metabolic Acidosis 2/2 sepsis - Continue monitoring BMPs Hyperkalemia 2/2 non-compliance w/ hemodialysis in the setting of ESRD - Nephro consulted from the ER for emergent Dialysis. No evidence of EKG changes noted from ER - Cont. w/ MWF dialysis per nephro, appreciate nephrology recs - K of 5.2 yesterday Rib Contusion - Pt complains of pain but has no evidence of fracture on CXR - tylenol prn Uncontrolled T1DM - Cont. w/ home dose of insulin w/ moderate SSI and ACH/HS accuchecks - Goal BG 140-180 - A1c 10.7 HLD - home meds HTN - home meds Drug Abuse - MD aware, career counselor for cessation CHF - home meds Anemia of Chronic Disease 2/2 ESRD Thrombocytopenia 2/2 ESRD -Discontinued heparin as platelets dropped Diarrhea -C dif toxin negative CODE STATUS: Full Code PPx: none Diet: Renal/CC <Mela Hardwick - Last Filed: 09/09/18 07:11> (1) Sepsis due to pneumonia Code(s): J18.9 - PNEUMONIA, UNSPECIFIED ORGANISM; A41.9 - SEPSIS, UNSPECIFIED ORGANISM Status: Acute (2) Hyperkalemia Code(s): E87.5 - HYPERKALEMIA Status: Acute (3) Diabetes mellitus type 1 Code(s): E10.9 - TYPE 1 DIABETES MELLITUS WITHOUT COMPLICATIONS Status: Chronic (4) ESRD (end stage renal disease) on dialysis Code(s): N18.6 - END STAGE RENAL DISEASE; Z99.2 - DEPENDENCE ON RENAL DIALYSIS Status: Chronic (5) Hypertension Code(s): I10 - ESSENTIAL (PRIMARY) HYPERTENSION Status: Chronic Qualifiers: Hypertension type: essential hypertension Qualified Code(s): I10 - Essential (primary) hypertension (6) Non-compliance with renal dialysis Code(s): Z91.15 - PATIENT'S NONCOMPLIANCE WITH RENAL DIALYSIS Status: Chronic (7) Polysubstance abuse Code(s): F19.10 - OTHER PSYCHOACTIVE SUBSTANCE ABUSE, UNCOMPLICATED Status: Chronic <Juliet Stroud - Last Filed: 09/09/18 14:41> Attending Addendum - Attending Addendum Date/Time: 09/09/18 0839 I personally evaluated the patient and discussed the management with Dr. Hardwick. I agree with the History, Examination, Assessment and Plan documented above with any addition or exceptions noted below. The patient has staph bacteremia. Sensitivities are back today. Will transition to IV rocephin. Pt also has a murmur today, we will get an echo to better evaluate for endocarditis. The patient will continue dialysis per nephro. Will consider transferring to medical floor. <Juliet Stroud - Last Filed: 09/09/18 14:41>
[2018-09-09] MEDS: Acetaminophen 500 MG TAB PO SCH ×4 (06:25→23:48)
[2018-09-09] MEDS: Sevelamer Carbonate 800 MG TAB PO SCH ×3 (10:06→17:04)
[2018-09-09] MEDS: Amlodipine 10 MG TAB PO SCH (10:06)
[2018-09-09] MEDS: HumaLOG 300 UNITS/3 ML VIAL SC SCH ×3 (10:06→17:04)
[2018-09-09] MEDS: Cinacalcet HCl 30 MG TAB PO SCH (10:07)
[2018-09-09] MEDS: hydrALAZINE 25 MG TAB PO SCH ×3 (10:07→20:08)
[2018-09-09] MEDS: levETIRAcetam 500 MG TAB PO SCH ×2 (10:08→20:06)
[2018-09-09] MEDS: Lactated Ringer's 1,000 ML IV SCH ×2 (10:37→20:05)
[2018-09-09] MEDS: cefTRIAXone\\ROCEPHIN 2 GM in Sodium Chloride 0.9% 100 ML IVPB SCH (10:38)
[2018-09-09 11:37] LABS: ALT (SGPT) 12 U/L (8-55); AST (SGOT) 18 U/L (5-34); Alkaline Phosphatase 103 U/L (40-150); Anion Gap 23 mmol/L (10-20); BUN (Urea Nitrogen) 30 mg/dL (8.9-20.6); Bilirubin, Total 0.5 mg/dL (0.2-1.2); Calc. Creatinine Clearance 15 mL/min (70-130); Calcium 8.8 mg/dL (7.8-10.44); Carbon Dioxide 19 mmol/L (22-29); Chloride 91 mmol/L (98-107); Estimated GFR-MDRD 12; Globulin 3.6 g/dL (2.4-3.5); Glucose 252 mg/dL (70-105); Hemoglobin 9.4 g/dL (14.0-18.0); Mean Corpuscular HGB CONC 31.1 g/dL (32.0-36.0); Mean Corpuscular Hemoglobin 29.1 pg (27.0-31.0); Mean Corpuscular Volume 93.7 fL (78.0-98.0); Mean Platelet Volume 11.4 fL (7.4-10.4); Platelet Count 102 thou/uL (130-400); Potassium 4.2 mmol/L (3.5-5.1); Protein, Total 6.6 g/dL (6.0-8.3); RBC Distribution Width 14.1 % (11.5-14.5); Red Blood Cell (RBC) Count 3.22 mill/uL (4.70-6.10); Sodium 129 mmol/L (136-145); White Blood Cell (WBC) Count 11.3 thou/uL (4.8-10.8)
[2018-09-09 12:17] LABS: Band 7 % (5-11); Burr Cells SLIGHT = 2-5 cells (100X) (0-1/hpf); Hypochromia SLIGHT = 6-15 cells (100X) (0-5/hpf); Lymphocytes 12 % (21-51); MDiff Complete? YES; Monocytes 12 % (0-10); Neutrophil 69 % (42-75); PLT Morphology Comment Appears Decreased; Polychromasia SLIGHT = 2-3 cells (100X) (0-2/hpf)
--- NOTE | 2018-09-09 12:24 | CON ---
DATE OF CONSULTATION: 09/09/2018 HISTORY: He is a 37-year-old gentleman who has been seen several times by our service. He sees Dr. 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 He said he felt weak. He has been here many times with similar problems. He was dialyzed on his day of admission, he is still on the MICU. He is still complaining of vague left-sided chest pain, but he is denying any fever, chills, or sweat s. He smokes a pack a day. His chest x-ray shows a small left-sided pleural effusion. Admission chest x-ray showed similar find ings. He said he was found down several times. I do not see an obvious broken rib. PAST MEDICAL HISTORY: Pertinent for end-stage renal disease, tobacco abuse, COPD, peripheral vascula r disease. PAST SURGICAL HISTORY: Right BKA access. HOME MEDICATIONS: Keppra 500 twice a day, hydralazine 25 three times a day, Zoloft 25, insulin, amlo dipine 10. REVIEW OF SYSTEMS: Ten-point negative. His all cultures are positive for Staph aureus, not MRSA. PHYSICAL EXAMINATION: GENERAL: He is awake, alert, responsive, in no distress. VITAL SIGNS: Blood pressure is 93/53, sats are 100% on room air, respirations 19, temperature 98. CHEST: Decreased breath sounds, no wheezing. CARDIAC: Normal S1, S2, no gallops or rubs. ABDOMEN: Soft, no masses. LABORATORY DATA: His white count is 12,000, H and H 8 and 26. His lytes are normal. Creatinine 7.7 . IMPRESSION: 1. Recurrent Staphylococcus sepsis, endocarditis. 2. Renal failure. 3. Tobacco abuse. PLAN: I agree with echocardiogram to rule out endocarditis. I would deescalate his antibiotics. He is probably sensitive to pretty much all antibiotics, not MRSA. IV Rocephin should be more than adequate. We will follow.
[2018-09-09] MEDS: Nicotine 14 MG PATCH TD SCH (17:04)
--- NOTE | 2018-09-09 19:42 | PRG ---
Date of service: 09/09/2018. Subjective: Patient was seen and examined at bedside and overnight events noted. Patient denies any shortness of breath or chest pain or palpitation. No history of nausea or vomiting or diarrhea or fever or chills or cramps. Objective: General: This is a well-built male in no apparent distress. Vital signs : Temperature 98.0. Pulse 90. Respiratory rate 18. Blood pressure 114/58. HEENT: Atraumatic, normocephalic, Oral mucosa is moist Neck: Supple Cardiovascular: S1S2 heard, Rate and rhythm regular Respiratory: Clear to auscultation Gastrointestinal: Abdomen is soft Musculoskeletal : No tenderness, No edema Dermatologic : No skin rash Neurologic: Alert and awake and oriented X3, No focal neurologic deficits. Moving all the extremities . Psychiatric: Mood and affect normal Laboratory data: Potassium is 4.2, sodium is 129, BUN is 30, creatinine 6.2. Assessment and Plan: 1. End-stage renal disease on hemodialysis, not getting his dialysis. 2. Hyponatremia. Limit fluid intake, should partially correct for hyperglycemia. 3. Hyperglycemia. 4. Acidosis. 5. Anemia, stable. 6. Hypertension. The patient is feeling better. We will continue dialysis Monday, Monday, and Monday.
[2018-09-10 04:25] LABS: ALT (SGPT) 8 U/L (8-55); AST (SGOT) 11 U/L (5-34); Albumin 2.8 g/dL (3.5-5.0); Alkaline Phosphatase 92 U/L (40-150); Anion Gap 27 mmol/L (10-20); BUN (Urea Nitrogen) 36 mg/dL (8.9-20.6); Bilirubin, Total 0.4 mg/dL (0.2-1.2); Calc. Creatinine Clearance 13 mL/min (70-130); Calcium 8.5 mg/dL (7.8-10.44); Carbon Dioxide 16 mmol/L (22-29); Chloride 91 mmol/L (98-107); Estimated GFR-MDRD 10; Globulin 3.4 g/dL (2.4-3.5); Glucose 322 mg/dL (70-105); Potassium 4.3 mmol/L (3.5-5.1); Protein, Total 6.2 g/dL (6.0-8.3); Sodium 130 mmol/L (136-145)
[2018-09-10 04:31] LABS: Band 7 % (5-11); Hemoglobin 8.7 g/dL (14.0-18.0); Hypochromia SLIGHT = 6-15 cells (100X) (0-5/hpf); Lymphocytes 4 % (21-51); MDiff Complete? YES; Mean Corpuscular HGB CONC 30.8 g/dL (32.0-36.0); Mean Corpuscular Hemoglobin 28.9 pg (27.0-31.0); Mean Corpuscular Volume 93.7 fL (78.0-98.0); Mean Platelet Volume 12.6 fL (7.4-10.4); Monocytes 6 % (0-10); Neutrophil 83 % (42-75); PLT Morphology Comment Appears Decreased; Platelet Count 84 thou/uL (130-400); RBC Distribution Width 14.1 % (11.5-14.5); Red Blood Cell (RBC) Count 3.01 mill/uL (4.70-6.10)
[2018-09-10] MEDS ORDERED: Dextrose 5% in Water 1,000 ML IV PRN (05:22)
[2018-09-10] MEDS ORDERED: Dextrose 50% Abboject 50 ML SYRINGE SLOW IVP PRN (05:22)
--- NOTE | 2018-09-10 05:42 | PDOC.FM ---
- Subjective Subjective: Pt still having non-bloody watery diarrhea >3 BMs yesterday. Still also having vague left sided rib pain from fall with mild improvement.Also has nausea but no emesis. Feeling weak. Denies fevers, chills, chest pain. - Objective MAR Reviewed: Yes Vital Signs & Weight: Vital Signs (12 hours) Temp Pulse Resp BP BP Pulse Ox 09/10/18 04:00 99.2 F 99 20 99/54 L 100 09/09/18 23:53 99.0 F 93 20 111/55 L 100 09/09/18 20:08 90 110/29 L 09/09/18 20:00 98.8 F 90 18 110/29 L 98 Weight Weight 64.7 kg I&O: 09/08/18 09/09/18 09/10/18 06:59 06:59 06:59 Intake Total 1900 2697 1800 Output Total 2 0 Balance 1898 2697 1800 Result Diagrams: 09/10/18 03:54 09/10/18 03:54 <Viv Dalton - Last Filed: 09/10/18 08:02> - Objective Vital Signs & Weight: Vital Signs (12 hours) Temp Pulse Resp BP Pulse Ox 09/10/18 08:00 98 09/10/18 07:31 99.7 F H 92 18 104/59 L 100 09/10/18 04:00 99.2 F 99 20 99/54 L 100 09/09/18 23:53 99.0 F 93 20 111/55 L 100 Weight Weight 63.3 kg I&O: 09/09/18 09/10/18 09/11/18 06:59 06:59 06:59 Intake Total 2697 3200 Output Total 0 Balance 2697 3200 Result Diagrams: 09/10/18 03:54 09/10/18 03:54 <Efraín Mckinley - Last Filed: 09/10/18 11:05> Phys Exam - Physical Examination Constitutional: NAD HEENT: PERRLA dry oral mucosa Neck: full ROM Respiratory: no wheezing, no rales, no rhonchi, clear to auscultation bilateral Cardiovascular: RRR, no significant murmur Gastrointestinal: soft, positive bowel sounds mildly TTP diffusely R AKA, L arm dialysis fistula with wound, draining, LUE swelling, neuro & vascularly intact Neurological: non-focal, moves all 4 limbs Psychiatric: normal affect, A&O x 3 Skin: no rash Deviation from normal: mildly dec. skin turgor <Dalton,Viv - Last Filed: 09/10/18 08:02> Dx/Plan (1) Sepsis due to pneumonia Code(s): J18.9 - PNEUMONIA, UNSPECIFIED ORGANISM; A41.9 - SEPSIS, UNSPECIFIED ORGANISM Status: Acute (2) Anemia of renal disease Code(s): D63.1 - ANEMIA IN CHRONIC KIDNEY DISEASE Status: Chronic (3) Diabetes mellitus type 1 Code(s): E10.9 - TYPE 1 DIABETES MELLITUS WITHOUT COMPLICATIONS Status: Chronic (4) ESRD (end stage renal disease) on dialysis Code(s): N18.6 - END STAGE RENAL DISEASE; Z99.2 - DEPENDENCE ON RENAL DIALYSIS Status: Chronic (5) HLD (hyperlipidemia) Code(s): E78.5 - HYPERLIPIDEMIA, UNSPECIFIED Status: Chronic (6) Hyperglycemia due to type 1 diabetes mellitus Code(s): E10.65 - TYPE 1 DIABETES MELLITUS WITH HYPERGLYCEMIA Status: Chronic (7) Hypertension Code(s): I10 - ESSENTIAL (PRIMARY) HYPERTENSION Status: Chronic Qualifiers: Hypertension type: essential hypertension Qualified Code(s): I10 - Essential (primary) hypertension (8) Non-compliance with renal dialysis Code(s): Z91.15 - PATIENT'S NONCOMPLIANCE WITH RENAL DIALYSIS Status: Chronic - Plan Plan: 37 yo M with DM1 and ESRD on MWF HD with staph aureus bacteremia. Sepsis 2/2 staph aureus bacteremia -possible sources include suspected PNA vs. infective endocarditis -afebrile >24 hrs, other vital signs stable -still has neutrophilic luekocytosis at 12, mildly worsened from 11 yesterday, stress rxn vs. persistence of infectious source -procalcitonin trending up from 45 (42), will continue to trend -LUE US negative for DVT -echo to assess for infective endocarditis -strain sensitive to ceftriaxone, will continue current regimen -will continue to monitor vital signs, infection could be taking time to resolve given poor glycemic control Anion Gap Met. Acidosis -Inc in AG from 23 to 27 -will check beta hydroxybutyrate to assess for DKA Hyperkalemia 2/2 non-compliance of HD for ESRD -resolved with HD -continue MWF HD per Dr. Hurd's rx LUE wound with arm swelling -skin color change difficult to appreciate, no fluctuting mass -consider abscess formation at wound site -topical abx -will consider U/S assessment ESRD -continue MWF HD -continue sevelamer Mild hyponatremia -Correct for hyperglycemia to 134 -Continue to monitor, expect to improve with tighter glycemic cntrl Uncontrolled T1DM -POC glucoses have been 170-mid 200s on sliding scale -Will add basal insulin, short acting for meals on board -A1c 10.7 -Will change to aggressive SS to attain better glycemic control Rib Contusion -from fall prior to admission -Rib xray negative for fx Anemia of ESRD -Hb stable at 8.7, continue to monitor Thrombocytopenia -Heparin still held due to dec. in plts Diarrhea, resolved -C diff toxin & ribozyme negative HLD -continue home meds HTN -continue home meds Multi-substance abuse -MD aware, sweet to scholarship counselor for cessation DVT ppx: none Diet: renal/CC <Viv Dalton - Last Filed: 09/10/18 08:02> Attending Addendum - Attending Addendum Date/Time: 09/10/18 1102 I personally evaluated the patient and discussed the management with Dr. Dalton. I agree with the History, Examination, Assessment and Plan documented above with any addition or exceptions noted below. Patient here with MSSA bacteremia and concern for endocarditis. Echo pending. He has subacute presentation of nodule near his HD fistula site with some drainage. After HD today, will obtain U/S to see if fluid collection as that will need surgical intervention due to proximity to his fistula. Continue Rocephin and will repeat cx. PCT continues to be elevated. He has metabolic derangements suggestive of his need for HD this morning, will repeat labs after HD to ensure his acidosis is not worsening. Palliative care consult as this patient does not take care of himself or really allow others to care for him as evidenced by his refusal of HH services in outpatient setting arranged by myself. Restarting basal insulin to help get better control of blood sugars. <Efraín Mckinley - Last Filed: 09/10/18 11:05>
[2018-09-10] MEDS: Lactated Ringer's 1,000 ML IV SCH (06:14)
[2018-09-10] MEDS: Acetaminophen 500 MG TAB PO SCH ×5 (06:15→23:59)
[2018-09-10] MEDS: Insulin Regular 300 UNITS/3 ML VIAL SC PRN (06:18)
[2018-09-10] MEDS ORDERED: Insulin Glargine 12 UNITS in Pre-Filled Syringe 1 EACH SC SCH (09:00)
[2018-09-10] MEDS ORDERED: Triple Antibiotic Ointment 30 GM TUBE TOP SCH ×2 (09:00→21:00)
[2018-09-10] MEDS: HumaLOG 300 UNITS/3 ML VIAL SC SCH ×3 (11:28→18:18)
[2018-09-10] MEDS: Sevelamer Carbonate 800 MG TAB PO SCH ×3 (12:05→18:20)
--- NOTE | 2018-09-10 12:08 | PRG ---
DATE OF SERVICE: 09/10/2018 SUBJECTIVE: A 37-year-old male being seen for end-stage renal disease. The patient denies nausea, v omiting, or chest pain. OBJECTIVE: GENERAL: The patient is awake and alert. VITAL SIGNS: Afebrile, pulse 75, breathing at 16, blood pressure 115/63. GENERAL APPEARANCE AND MENTAL STATUS: Fair. HEAD/NECK: Normocephalic. Atraumatic. EYES: EOMI. No deformity. EARS: Clear. No ulcers. NOSE: Intact. No lesions. MOUTH: Clear. No discharge. THROAT: Clear. No exudate. LUNGS: Clear. No crackles. CARDIAC: S1, S2. No rub. ABDOMEN: Benign. BS+. GENITALIA/RECTUM: [place] absent. BACK/EXTREMITIES: Edema 0+ Ulcer-. NEUROLOGICAL: Alert and motor intact. SKIN: Rash- Bruise- LYMPHATICS: Edema- Ulcer-. LABORATORY DATA: Show hemoglobin 8.7. ASSESSMENT AND RECOMMENDATIONS: 1. Stage 6 chronic kidney disease, we will plan dialysis. 2. Hypertension, stable. 3. Anemia, stable. 4. Metabolic acidosis, stable.
[2018-09-10] MEDS: levETIRAcetam 500 MG TAB PO SCH ×2 (12:22→20:02)
[2018-09-10] MEDS: cefTRIAXone\\ROCEPHIN 2 GM in Sodium Chloride 0.9% 100 ML IVPB SCH (12:22)
[2018-09-10] MEDS: Cinacalcet HCl 30 MG TAB PO SCH (12:22)
[2018-09-10] MEDS: Amlodipine 10 MG TAB PO SCH (12:33)
[2018-09-10] MEDS: hydrALAZINE 25 MG TAB PO SCH ×3 (12:34→20:02)
[2018-09-10] MEDS: Triple Antibiotic Oint 1 GM Packet TOP SCH ×2 (12:34→20:02)
[2018-09-10] MEDS ORDERED: Ondansetron PF 4 MG/2 ML Vial ONE (14:55)
[2018-09-10] MEDS ORDERED: Succinylcholine Chloride 20 MG/ML 10 ml SYRINGE FS ONE (14:55)
[2018-09-10] MEDS ORDERED: PHENYLEPHRINE-NS 100 MCG/ML 10 ML SYRINGE ONE (14:55)
[2018-09-10] MEDS ORDERED: Lidocaine 1% PF 5 ML VIAL ONE (14:55)
[2018-09-10] MEDS ORDERED: PROPOFOL 200 MG/20 ML VIAL ONE (14:55)
[2018-09-10] MEDS ORDERED: ePHEDrine/0.9% NaCl/PF SYRINGE 50 mg/10 ml ONE (14:55)
[2018-09-10] MEDS ORDERED: Protamine Sulfate 50 MG/5 ML VIAL ONE (15:43)
[2018-09-10] MEDS ORDERED: Heparin 5,000 UNITS/ML VIAL ONE (15:43)
[2018-09-10] MEDS ORDERED: Heparin 10,000 UNITS/1 ML VIAL ONE (15:43)
[2018-09-10] MEDS ORDERED: Bupivacaine HCl 0.5%/Epinephrine 1:200,000/PF 30 ml Vial ONE (15:43)
[2018-09-10] MEDS ORDERED: Sodium Chloride 0.9% 40 ML ONE (15:43)
[2018-09-10] MEDS ORDERED: Fentanyl 100 MCG/2 ML VIAL ONE (15:43)
[2018-09-10] MEDS ORDERED: Lidocaine 2% PF 5 ML VIAL ONE (15:43)
[2018-09-10 16:59] LABS: Anion Gap 13 mmol/L (10-20); BUN (Urea Nitrogen) 14 mg/dL (8.9-20.6); Calc. Creatinine Clearance 24 mL/min (70-130); Calcium 8.3 mg/dL (7.8-10.44); Carbon Dioxide 29 mmol/L (22-29); Chloride 97 mmol/L (98-107); Estimated GFR-MDRD 22; Glucose 184 mg/dL (70-105); Potassium 3.4 mmol/L (3.5-5.1); Sodium 136 mmol/L (136-145)
[2018-09-10] MEDS: Nicotine 14 MG PATCH TD SCH (18:18)
--- NOTE | 2018-09-10 18:26 | HP ---
Silvestre Brush is a 37-year-old black male with end-stage renal disease, on maintenance dialysis, admitted to [facility]. I was called to IMCU stating that he had a bleeding episo de this afternoon when they completed his dialysis. He had hemorrhage from his graft. On arrival, I am told this occurred earlier this morning. The patient had a left arm dialysis graft that was plac ed in 2011. He has stents in his left axilla, subclavian vein, and innominate vein. On further revi ew, in 2016, he had another intervention revealing stent placed in the distal graft above the antecub ital fossa. This is the area where it is bleeding. On arrival, Ultrasound was present to do a vascu lar ultrasound. I removed the dressing. He hemorrhaged blood all over the room. I canceled the vas cular access. His hemoglobin is 8.7. We will admit him emergently, order a type and cross 4 units, take him to the operating room for control of this bleeding. We will need to ligate the graft and pl sunita a hemodialysis catheter. We will arrange a more permanent access at a later time.
[2018-09-10] MEDS ORDERED: Promethazine HCl 25 MG/ML VIAL SLOW IVP PRN (18:37)
[2018-09-10] MEDS ORDERED: Promethazine HCl 25 MG/ML VIAL IM PRN (18:37)
[2018-09-10] MEDS ORDERED: Ondansetron HCl/PF 4 MG/2 ML Vial IVP PRN (18:37)
--- NOTE | 2018-09-10 19:49 | RAD ---
PORTABLE CHEST: History: Follow up. Access central line placement ICU. Comparison: 09-08-18 FINDINGS: Central line has been placed in the right jugular. Line overlies the SVC. Stents overlying the left s ubclavian and axillary vein again noted. Lungs appear clear. No acute lung process. IMPRESSION: No acute finding. POS: [facility]
[2018-09-10] MEDS ORDERED: Pre-Filled Syringe 1 EACH SC SCH (21:00)
--- NOTE | 2018-09-11 00:23 | OP ---
DATE OF PROCEDURE: 09/10/2018 PREOPERATIVE DIAGNOSES: End-stage renal disease, left subclavian vein stent, left axillary vein sten t, left upper arm dialysis graft stent (placed in 2011), hemorrhage in left arm graft with chronic ul ceration, poor IV access. POSTOPERATIVE DIAGNOSES: End-stage renal disease, left subclavian vein stent, left axillary vein mendel nt, left upper arm dialysis graft stent (placed in 2011), hemorrhage in left arm graft with chronic u lceration, poor IV access. PROCEDURES: Right IJ cuffed tunnel hemodialysis catheter, ultrasound fluoroscopy used. Left femoral vein triple lumen catheter. Ligation of left upper arm graft with removal of exposed hemorrhaging s egment, central portion left open where the graft was removed. SURGEON: Dr. Milad Isabel ANESTHESIA: General. Local 0.5% Marcaine with epinephrine 30 mL with Xylocaine 10 mL. PLAN: We will obtain ultrasound vein mapping right arm for future dialysis access. Consider future right arm dialysis fistula or graft, pending vein mapping. Local wound care in left arm. Home 24-48 hours pending medical stability. DESCRIPTION OF PROCEDURE: The patient is taken to the operating room where under general anesthesia, IV access in the right antecubital was lost and it was infiltrated. Under local anesthetic, the lef t femoral vein triple lumen catheter was placed, a 1% Xylocaine infiltrated with skin and subcutaneou s tissue after area was prepped with ChloraPrep and draped in routine fashion. Seldinger technique u sed to place a left femoral vein triple lumen catheter. Once this was accomplished, patient was plac ed under general anesthesia. Neck and chest prepared with ChloraPrep and draped in routine fashion. Ultrasound used to cannulate the right internal jugular vein. J-wire threaded. Trocar catheter ___ __ sharply. Stab incision made over the right chest. Using the tunneling device, precurved angiodyn amics cuffed tunnel hemodialysis catheter tunneled between the two incisions, placing the fabric cuff beneath the skin exit site and catheter secured with 2 interrupted sutures of 3-[address] essing applied. Smaller medium size dilators placed over the J-wire into the internal jugular vein r emoved. Dilator and pull-away sheath placed over the J-wire into the superior vena cava and dilator and J-wire removed. Catheter placed with pull-away sheath. Pull-away sheath removed. Platysma appr oximated with 4-0 Monocryl, skin with subdermal 4-0 Monocryl and DermaGlue applied. Each port aspira abran with blood and flushed with saline solution with heparinized saline solution 1000 units heparin p er mL indicated volume of the port. Fluoroscopic images revealed good line placement. Attention turned to the left arm where pressure held in hemorrhaging area and arm prepared with Chlor aPrep and draped in routine fashion. Incision was made proximal distal to the open wound that had be en hemorrhaged. Arterial inflow gained above the cubital fossa. Again skin and subcutaneous tissue and graft dissected free, clamped with a hemostat, dissected free towards the arterial inflow of [facility] hial artery, and the stump of the graft ligated with 4-0 Prolene suture divided and then the graft di ssected free towards the open wound in the mid upper arm. A similar incision made transversely over the graft in the upper arm above the open wound carried down through skin and subcutaneous tissue and graft dissected free and the venous end of the graft near on the axillary side of this open wound wa s then dissected free, divided and closed with continuous suture of 4-0 Prolene. Graft dissected carlos e down to the open end of the wound. Open wound in the left upper arm was then debrided, old hemorrh agic thrombus and graft and stent removed. Hemostasis gained with cautery. Wound packed open. The patient tolerated the procedure well.
[2018-09-11 05:05] LABS: Mean Corpuscular HGB CONC 31.9 g/dL (32.0-36.0); Mean Corpuscular Hemoglobin 29.8 pg (27.0-31.0); Mean Corpuscular Volume 93.4 fL (78.0-98.0); Platelet Count 88 thou/uL (130-400); RBC Distribution Width 14.1 % (11.5-14.5); Red Blood Cell (RBC) Count 2.67 mill/uL (4.70-6.10); White Blood Cell (WBC) Count 11.9 thou/uL (4.8-10.8)
[2018-09-11 05:09] LABS: ALT (SGPT) 7 U/L (8-55); AST (SGOT) 8 U/L (5-34); Albumin 2.8 g/dL (3.5-5.0); Alkaline Phosphatase 84 U/L (40-150); Anion Gap 19 mmol/L (10-20); BUN (Urea Nitrogen) 17 mg/dL (8.9-20.6); Bilirubin, Total 0.3 mg/dL (0.2-1.2); Calc. Creatinine Clearance 20 mL/min (70-130); Calcium 7.8 mg/dL (7.8-10.44); Carbon Dioxide 24 mmol/L (22-29); Chloride 96 mmol/L (98-107); Estimated GFR-MDRD 18; Globulin 3.1 g/dL (2.4-3.5); Glucose 327 mg/dL (70-105); Potassium 3.7 mmol/L (3.5-5.1); Protein, Total 5.9 g/dL (6.0-8.3); Sodium 135 mmol/L (136-145)
[2018-09-11 05:30] LABS: Band 10 % (5-11); Lymphocytes 10 % (21-51); MDiff Complete? YES; Monocytes 7 % (0-10); Neutrophil 73 % (42-75); PLT Morphology Comment Appears Decreased
[2018-09-11] MEDS: Acetaminophen 500 MG TAB PO SCH ×4 (06:06→18:24)
[2018-09-11] MEDS: Insulin Regular 300 UNITS/3 ML VIAL SC PRN (06:08)
--- NOTE | 2018-09-11 06:11 | PDOC.FM ---
- Subjective Subjective: Patient reports improvement in weakness. Also less pain at left rib. Denies nausea, blurry vision, polydipsia. No other concerns at this time. - Objective MAR Reviewed: Yes Vital Signs & Weight: Vital Signs (12 hours) Temp Pulse Resp BP BP BP Pulse Ox 09/11/18 04:00 98.3 F 98 18 104/57 L 95 09/11/18 00:00 97.5 F L 97 18 100/57 L 98 09/10/18 20:02 91 106/54 L 09/10/18 20:00 97.3 F L 90 18 98/51 L 100 09/10/18 18:18 97 Weight Weight 63.3 kg I&O: 09/09/18 09/10/18 09/11/18 06:59 06:59 06:59 Intake Total 2697 3200 1650 Output Total 1999 Balance 2697 3200 -350 Result Diagrams: 09/11/18 04:43 09/11/18 04:43 <Viv Dalton - Last Filed: 09/11/18 07:54> - Objective Vital Signs & Weight: Vital Signs (12 hours) Temp Pulse Resp BP BP Pulse Ox 09/11/18 09:55 103 H 09/11/18 08:00 96 09/11/18 07:29 98.3 F 103 H 15 103/52 L 96 09/11/18 04:00 98.3 F 98 18 104/57 L 95 09/11/18 00:00 97.5 F L 97 18 100/57 L 98 Weight Weight 63.3 kg I&O: 09/10/18 09/11/18 09/12/18 06:59 06:59 06:59 Intake Total 3200 1650 Output Total 2000 Balance 3200 -350 Result Diagrams: 09/11/18 04:43 09/11/18 04:43 <Efraín Mckinley - Last Filed: 09/11/18 10:44> Phys Exam - Physical Examination Constitutional: NAD HEENT: PERRLA Neck: no nodes Respiratory: no wheezing, no rales, clear to auscultation bilateral Cardiovascular: RRR, no significant murmur Gastrointestinal: soft, non-tender, positive bowel sounds Musculoskeletal: no edema Neurological: moves all 4 limbs Psychiatric: A&O x 3 Skin: normal turgor <Viv Dalton - Last Filed: 09/11/18 07:54> Dx/Plan (1) MSSA bacteremia Code(s): R78.81 - BACTEREMIA Status: Acute (2) Hyperglycemia due to type 1 diabetes mellitus Code(s): E10.65 - TYPE 1 DIABETES MELLITUS WITH HYPERGLYCEMIA Status: Chronic (3) Complication of arteriovenous dialysis fistula Code(s): T82.9XXA - UNSP COMP OF CARDIAC AND VASCULAR PROSTH DEV/GRFT, INIT Status: Acute (4) Anemia of renal disease Code(s): D63.1 - ANEMIA IN CHRONIC KIDNEY DISEASE Status: Chronic (5) ESRD (end stage renal disease) on dialysis Code(s): N18.6 - END STAGE RENAL DISEASE; Z99.2 - DEPENDENCE ON RENAL DIALYSIS Status: Chronic (6) HLD (hyperlipidemia) Code(s): E78.5 - HYPERLIPIDEMIA, UNSPECIFIED Status: Chronic (7) Hypertension Code(s): I10 - ESSENTIAL (PRIMARY) HYPERTENSION Status: Chronic Qualifiers: Hypertension type: essential hypertension Qualified Code(s): I10 - Essential (primary) hypertension (8) Non-compliance with renal dialysis Code(s): Z91.15 - PATIENT'S NONCOMPLIANCE WITH RENAL DIALYSIS Status: Chronic - Plan Plan: 37 yo M with DM1 and ESRD on MWF HD with staph aureus bacteremia. MSSA Bacteremia -possible sources include left arm fistula infection/abscess -afebrile >48 hrs, other vital signs stable -still has neutrophilic luekocytosis at 11.9, unchanged from yesterday -Echo with mild mitral regurg, no other signs c/w infective endocarditis -continue ceftriaxone, pending blood cx -will continue to monitor vital signs, infection could be taking time to resolve given poor glycemic control Uncontrolled T1DM with ESRD on HD -POC glucoses have been 200s-low 300s -Will inc Lantus, cover with SS -Continue diabetic diet -Creatinine at 4.46 today, up from yesterday. Baseline anywhere from 3-12 in past few months -No fluids at this time, continue MWF HD Left arm AV fistula hemorrage & removal -s/p surgery with Dr. Isabel, AV fistula removed, hemostasis achieved -PRBC x1 transfused -R IJ tunnel cath placed -Left fem. central line placed -Will need eventual R arm AV fistula -On Ciprofloxacin -Continue to monitor H/H, stable at 8, if drops consider transfusion JUAN J -Inc. in creatinine, likely due to hemorrage -Will talk with Dr. Hurd on restarting gentle fluids Anion Gap Met. Acidosis, RESOLVED -AG at 19 today Hyperkalemia 2/2 non-compliance of HD for ESRD, RESOLVED -resolved with HD -continue MWF HD per Dr. Hurd's rx Rib Contusion -from fall prior to admission -Rib xray negative for fx Anemia of ESRD -Hb stable at 8, s/p hemorrhage -See above Thrombocytopenia -anticoagulation still held due to dec. in plts, recent bleeding episode Diarrhea, resolved -C diff toxin & ribozyme negative HLD -continue home meds HTN -continue home meds Multi-substance abuse -MD kevin, sweet to agency legal counsel for cessation DVT ppx: hold Diet: renal/CC <Viv Dalton - Last Filed: 09/11/18 07:54> Attending Addendum - Attending Addendum Date/Time: 09/11/18 1042 I personally evaluated the patient and discussed the management with Dr. Dalton. I agree with the History, Examination, Assessment and Plan documented above with any addition or exceptions noted below. Patient feeling well this morning. Has had a change of heart and desires to continue treatment for his conditions. Had large hemorrhage yesterday that required surgical intervention but now doing well and H/H stable. Will transfuse again this morning. Continue on abx for bacteremia though source of this is currently unknown. Consulting ID regarding recommendations for further workup and/or need for penitentiary abx. Will check PCT tomorrow. Continue to work on his extremely labile blood sugars. Echo did not show major evidence for valve vegetations. <Efraín Mckinley - Last Filed: 09/11/18 10:44>
[2018-09-11] MEDS: Sevelamer Carbonate 800 MG TAB PO SCH ×4 (08:08→18:24)
--- NOTE | 2018-09-11 08:49 | PRG ---
DATE OF SERVICE: 09/11/2018 SUBJECTIVE: Silvestre Brush is doing well today. He is awake and alert. PHYSICAL EXAMINATION: VITAL SIGNS: His blood pressure is slightly low at times. Orthostatic when he sits up and he feels dizzy. Temperature 98.3 degrees, heart rate 103, 103/52. Yesterday, he was given 2 units of blood and his hemoglobin is 8 this morning. He dialyzed yesterday . I have spoken with his nurse and we will plan transfusion of 1 unit of blood today. LUNGS: Clear to auscultation. CARDIAC: Regular rate and rhythm without murmur or gallop. ABDOMEN: Soft. EXTREMITIES: Left arm wound, stable. ASSESSMENT AND PLAN: Left subclavian vein stents, axillary vein stents, status post hemorrhage from his left arm graft, status post ligation, resection of a segment. He has an open wound. He will nee d open wound care daily. Director Of Music Therapy consult for home health attention and preparation of discharge. This wound should be changed daily or every other day with saline wet to dry dressings. The patient should follow up in my office in 2-3 weeks. We will ask my office to schedule a right arm dialysis graft or fistula. Avoid IV access right arm. Pending vein mapping, the patient may need to be consi dered for a thigh graft. From a surgical standpoint, the patient is stable for discharge today and w e will plan outpatient dialysis access right arm. He does dialyze on Monday, Monday, and Monday. We will plan a surgery on a Monday, possibly next week.
[2018-09-11] MEDS ORDERED: Insulin Glargine 14 UNITS in Pre-Filled Syringe 1 EACH SC SCH (09:00)
[2018-09-11] MEDS: Cinacalcet HCl 30 MG TAB PO SCH (09:52)
[2018-09-11] MEDS: Triple Antibiotic Oint 1 GM Packet TOP SCH ×2 (09:54→21:09)
[2018-09-11] MEDS: levETIRAcetam 500 MG TAB PO SCH ×2 (09:54→21:08)
[2018-09-11] MEDS: cefTRIAXone\\ROCEPHIN 2 GM in Sodium Chloride 0.9% 100 ML IVPB SCH (09:54)
[2018-09-11] MEDS: Amlodipine 10 MG TAB PO SCH (09:55)
[2018-09-11] MEDS: hydrALAZINE 25 MG TAB PO SCH ×3 (09:55→21:08)
[2018-09-11] MEDS: HumaLOG 300 UNITS/3 ML VIAL SC SCH ×3 (10:11→18:24)
--- NOTE | 2018-09-11 13:28 | ULT ---
VASCULAR DUPLEX ULTRASOUND FOR VESSEL MAPPING FOR DIALYSIS ACCESS: HISTORY: ESRD. This is for evaluation of the right arm only. FINDINGS: Vein sizes from proximal to distal are: CEPHALIC BASILIC RIGHT SHOULDER 1.6 mm 2.7 mm RIGHT UPPER ARM 1.7 mm 1.9 mm RIGHT MID UPPER ARM 1.4 mm 2.3 mm RIGHT JUST PROXIMAL TO ELBOW 2.7 mm 1.3 mm RIGHT JUST DISTAL TO ELBOW 1.3 mm 1.1 mm RIGHT MID FOREARM 1.2 mm 1.0 mm RIGHT WRIST 1.2 mm 0.6 mm RIGHT BRACHIAL ARTERY: 4.0 mm (somewhat duplicated appearance). RADIAL ARTERY: 1.3 mm. ULNAR ARTERY: 2.2 mm. No left-sided evaluation was performed. POS: URIAH
[2018-09-11 13:39] VITALS: BMI 19.4
--- NOTE | 2018-09-11 13:55 | PRG ---
DATE OF SERVICE: 09/11/2018 Mr. Brush is doing fairly well, although he is not cooperating with physical therapy or wound c are and refusing his medications and refusing dialysis. Ultrasound vein mapping right arm reveals cephalic to be 1.6, 1.7, 1.4, 2.7 mm. Basilic 2.7, 1.9, 2. 3, 1.3 mm. Unfortunately, he has had antecubital IV during this hospitalization which dialysis patie nts, chronic kidney disease patients, end-stage renal disease patients should not have. The plan is next week Monday, nondialysis day, 09/18/2018, afternoon to report at noon n.p.o. except f or meds with a sip of water for surgery Monday for a right arm fistula, most likely dialys is graft. We will need to establish new dialysis access to minimize duration of his catheter and pre vent line sepsis. My office is arranging this as an outpatient. Communication director of parks and recreation for prereg istration and nurses to inform patient has been performed. I will see the patient as needed.
[2018-09-11] MEDS: Nicotine 14 MG PATCH TD SCH (17:42)
--- NOTE | 2018-09-11 19:15 | PRG ---
DATE OF SERVICE: 09/11/2018 SUBJECTIVE: A 37-year-old gentleman being seen for end-stage renal disease. Patient denies any naus ea, vomiting, or chest pain. PHYSICAL EXAMINATION: GENERAL: Patient is awake, alert. VITAL SIGNS: Afebrile, pulse 75, breathing 16, blood pressure was 129/68. HEAD/NECK: Normocephalic. Atraumatic. EYES: EOMI. No deformity. EARS: Clear. No ulcers. NOSE: Intact. No lesions. MOUTH: Clear. No discharge. THROAT: Clear. No exudate. LUNGS: Clear. No crackles. CARDIAC: S1, S2. No rub. ABDOMEN: Benign. BS+. GENITALIA/RECTUM: Clifton absent. BACK/EXTREMITIES: Edema 0+ Ulcer- NEUROLOGICAL: Alert and motor intact. SKIN: Rash- Bruise- LYMPHATICS: Edema- Ulcer- LABORATORY DATA: Show hemoglobin 8.0. ASSESSMENT AND PLAN: 1. Stage 6 chronic kidney disease, continue hemodialysis. 2. Anemia, would recommend checking hemoglobin in the morning. Anemia, stable. 3. Medications based on glomerular filtration rate are appropriate.
--- NOTE | 2018-09-11 22:21 | CON ---
DATE OF CONSULTATION: 09/11/2018 REASON FOR CONSULTATION: Bacteremia. HISTORY OF PRESENT ILLNESS: A 37-year-old patient whom I had seen in 12/2017, who has a history of end-stage renal disease associated with type 1 diabetes mellitus who in December presented with exacerbation of depression and lack of adherence to dialytic therapy. Patient was admitted now with hyperkalemia and hyperglycemia and metabolic acidosis, and he was noticed to have methicillin- sensitive Staphylococcus aureus bacteremia. The differential diagnosis is then included the endocarditis or colonization of the graft. Patient had a transthoracic echocardiogram then which showed an EF of 50%-55%, but no valvular abnormalities. Patient was discharged on cefazolin until January for about 4 weeks as well as oral Levaquin. In March, he was readmitted and he came with hyperkalemia and he left the hospital against medical advice. In April, patient was admitted with hyperkalemia again and had an urgent dialysis in May, he was admitted twice for diabetic ketoacidosis. At the end of May, he was admitted with hyperosmolar hyperglycemic state. Patient had no blood cultures are drawn during those admissions after December. At this time, he is brought to the hospital because of recurrent episodes of falls, some diarrhea, missing dialytic treatments. Patient had no reported fever or chills. No headaches. He has chronic severe visual impairment. He had pain in the left rib cage area after fall and little bit of back pain in the mid thoracic area. No pelvic pain. He does not have urinary output continues to have diarrhea. No other joint symptoms at this time. MEDICAL HISTORY: Type 1 diabetes, end-stage renal disease on hemodialysis through an AV graft in the left upper extremity, previous episode of MSSA bacteremia in December this year, which was treated for a month of IV Ancef and oral levofloxacin at dialysis. It is unclear or at least, it is not known if he was able to adhere to this recommended treatment in December. 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 FAMILY HISTORY: Diabetes mellitus, hypertension, lymphoma, breast cancer. SOCIAL HISTORY: Current smoker. Drinks infrequently. Lives in town, uses PCP from [id number]. CURRENT MEDICATION LIST: Tylenol, DuoNeb, Norvasc, ceftriaxone, cinacalcet, glucagon, guaifenesin, hydralazine, insulin, Keppra, levofloxacin, ondansetron, and tramadol. PHYSICAL EXAMINATION: VITAL SIGNS: Temperature max 99, blood pressure 120/60, pulse 104, respirations 15, and O2 sat 96% on room air. SKIN: Patient has wound in the left arm at the site of the previous AV graft that had been bleeding from the area. Dr. Isabel did an I&D of the site. This was a ligation of left upper extremity graft removal of exposed hemorrhaging segments. The area is packed, now with gauze. Patient has a new tunneled catheter in the right IJ position. HEENT: His ocular movements are conjugate. Sclerae are white. Pupils are reactive on the right side. Oral cavity is moist. Numerous teeth in place with some decay and gum disease. NECK: Supple, no jugular vein distention. LUNGS: With symmetric clear breath sounds. Tenderness left anterior rib cage region. HEART: S1, S2, regular rate without murmurs. The left arm has some swelling with it and some erythema around the packed wound. ABDOMEN: Soft, not distended or tender. No ascites. No bladder distention. GENITAL: Normal. EXTREMITIES: There is no joint inflammatory activity noted. Pulses are 1+ in the left foot, dorsalis pedis. He has weakness in the left lower extremity. He can barely move his toes. NEUROLOGIC: Plantar responses are indifferent. No clonus. He is able to move the upper extremities with some limitations. His cognitive function appears to be intact. LABORATORY DATA: White cell count was 14.2 and now 11.9, hemoglobin 8, platelets 88,000. Sodium 135, creatinine 4.46, calcium 7.8, potassium 3.7, alkaline phosphatase 84, albumin 2.8, and glucose 319. Microbiology with 2/2 sets of blood cultures with methicillin-sensitive Staphylococcus aureus. The same susceptibility as the one that isolate from December of this year. C. diff antigen was positive, but toxin negative. ASSESSMENT: 1. Type 1 diabetes with end-stage renal disease on hemodialysis through an AV graft until recently. Complications of the AV graft with possible infection by methicillin-sensitive Staphylococcus aureus. 2. Methicillin-sensitive Staphylococcus aureus bacteremia recurrence from December , likely the same organism. Possibilities of complication of the graft with infection of the lumen versus endocarditis, septic pulmonary involvement are considered. Other sites of involvement including spine and long bones and joints are not apparent at this time but need to continue to be watched for. Patient is at the risk for colonization of the subclavian tunneled catheter with Staphylococcus aureus, he still has pieces of graft remaining in situ in the left arm and those may still be colonized. We will recommend continuation of therapy at dialysis this time with vancomycin sliding scale for 6 weeks and repeat cultures at the end of therapy. The patient has had a repeat echocardiogram, which did not show any major abnormalities and I would not recommend a LUIS at this point in time. We will order CT of chest to make sure he does not have septic involvement of lung parenchyma. If the residual foreign body in his L arm is colonized, there is the possibility of recurrence of the bacteremia after completion of the upcoming Vancomycin treatment. MTDD
[2018-09-12] MEDS: Acetaminophen 500 MG TAB PO SCH ×3 (00:42→14:32)
[2018-09-12 05:47] LABS: Band 1 % (5-11); Hemoglobin 7.1 g/dL (14.0-18.0); Hypochromia SLIGHT = 6-15 cells (100X) (0-5/hpf); Lymphocytes 6 % (21-51); MDiff Complete? YES; Mean Corpuscular HGB CONC 31.8 g/dL (32.0-36.0); Mean Corpuscular Hemoglobin 29.7 pg (27.0-31.0); Mean Corpuscular Volume 93.6 fL (78.0-98.0); Mean Platelet Volume 12.1 fL (7.4-10.4); Monocytes 8 % (0-10); Neutrophil 85 % (42-75); PLT Morphology Comment Appears Adequate; Platelet Count 121 thou/uL (130-400); Red Blood Cell (RBC) Count 2.39 mill/uL (4.70-6.10); White Blood Cell (WBC) Count 11.8 thou/uL (4.8-10.8)
[2018-09-12 05:48] LABS: ALT (SGPT) 7 U/L (8-55); AST (SGOT) 8 U/L (5-34); Albumin 2.6 g/dL (3.5-5.0); Alkaline Phosphatase 85 U/L (40-150); Anion Gap 14 mmol/L (10-20); BUN (Urea Nitrogen) 20 mg/dL (8.9-20.6); Bilirubin, Total 0.2 mg/dL (0.2-1.2); Calc. Creatinine Clearance 16 mL/min (70-130); Calcium 7.1 mg/dL (7.8-10.44); Carbon Dioxide 28 mmol/L (22-29); Chloride 95 mmol/L (98-107); Estimated GFR-MDRD 13; Glucose 177 mg/dL (70-105); Potassium 3.4 mmol/L (3.5-5.1); Protein, Total 5.6 g/dL (6.0-8.3); Sodium 134 mmol/L (136-145)
--- NOTE | 2018-09-12 06:59 | PDOC.FM ---
- Subjective Subjective: Yesterday patient refused PRBC transfusion and all insulin. Reported he was "feeling fine" and "wanted to be left alone". I went and discussed >15 minutes the consequences of not taking insulin and why we were working to control his glucoses in the setting of an infection. He indicated he understood. - Objective MAR Reviewed: Yes Vital Signs & Weight: Vital Signs (12 hours) Temp Pulse Resp BP Pulse Ox 09/12/18 04:00 98.7 F 105 H 18 125/70 92 L 09/11/18 23:55 99.0 F 104 H 18 114/74 97 09/11/18 21:08 101 H 09/11/18 20:00 97 09/11/18 19:48 100.4 F H 101 H 18 109/66 97 Weight Admit Weight 65.7 kg Weight 67.4 kg I&O: 09/10/18 09/11/18 09/12/18 06:59 06:59 06:59 Intake Total 3200 1650 1820 Output Total 2000 0 Balance 3200 -350 1820 Result Diagrams: 09/12/18 04:45 09/12/18 04:45 <Viv Dalton - Last Filed: 09/12/18 10:50> - Objective Vital Signs & Weight: Vital Signs (12 hours) Temp Pulse Resp BP BP BP Pulse Ox 09/12/18 10:23 99 142/90 H 09/12/18 10:22 99 142/90 H 09/12/18 08:47 108/60 09/12/18 08:00 99 09/12/18 07:40 98.6 F 99 12 119/57 L 09/12/18 04:00 98.7 F 105 H 18 125/70 96 Weight Admit Weight 65.7 kg Weight 67.4 kg I&O: 09/11/18 09/12/18 09/13/18 06:59 06:59 06:59 Intake Total 1650 1820 Output Total 2000 0 Balance -350 1820 Result Diagrams: 09/12/18 04:45 09/12/18 04:45 <Efraín Mckinley - Last Filed: 09/12/18 11:57> Phys Exam - Physical Examination Constitutional: NAD Respiratory: no wheezing, no rales, clear to auscultation bilateral Gastrointestinal: soft, positive bowel sounds Neurological: moves all 4 limbs Psychiatric: A&O x 3 Deviation from normal: sad affect <Viv Dalton - Last Filed: 09/12/18 10:50> Dx/Plan (1) MSSA bacteremia Code(s): R78.81 - BACTEREMIA Status: Acute (2) Hyperglycemia due to type 1 diabetes mellitus Code(s): E10.65 - TYPE 1 DIABETES MELLITUS WITH HYPERGLYCEMIA Status: Chronic (3) Complication of arteriovenous dialysis fistula Code(s): T82.9XXA - UNSP COMP OF CARDIAC AND VASCULAR PROSTH DEV/GRFT, INIT Status: Acute (4) Anemia of renal disease Code(s): D63.1 - ANEMIA IN CHRONIC KIDNEY DISEASE Status: Chronic (5) ESRD (end stage renal disease) on dialysis Code(s): N18.6 - END STAGE RENAL DISEASE; Z99.2 - DEPENDENCE ON RENAL DIALYSIS Status: Chronic (6) HLD (hyperlipidemia) Code(s): E78.5 - HYPERLIPIDEMIA, UNSPECIFIED Status: Chronic (7) Hypertension Code(s): I10 - ESSENTIAL (PRIMARY) HYPERTENSION Status: Chronic Qualifiers: Hypertension type: essential hypertension Qualified Code(s): I10 - Essential (primary) hypertension (8) Non-compliance with renal dialysis Code(s): Z91.15 - PATIENT'S NONCOMPLIANCE WITH RENAL DIALYSIS Status: Chronic - Plan Plan: 37 yo M with DM1 and ESRD on MWF HD with staph aureus bacteremia. MSSA Bacteremia -possible sources include left arm AV fistula graft -spiked 100.4 fever yesterday -Procal trending down -Echo with mild mitral regurg, no other signs c/w infective endocarditis -continue ceftriaxone, will continue with Vanco per Dr. Jessica zhao -Pending CT chest for evaluation of septic emboli Uncontrolled T1DM with ESRD on HD -POC glucoses have been 200s-low 300s -Will inc Lantus, cover with SS -Continue diabetic diet -Creatinine at 4.46 today, up from yesterday. Baseline anywhere from 3-12 in past few months -No fluids at this time, HD today Left arm AV fistula hemorrage & s/p graft removal -s/p surgery with Dr. Isabel, AV fistula removed, hemostasis achieved -PRBC x1 transfused -R IJ tunnel cath placed -Left fem. central line placed -Will need eventual R arm AV fistula -On Ciprofloxacin -Will get PRBC x1 in HD Hypokalemia -Will correct during HD Anion Gap Met. Acidosis, RESOLVED -resolved Hyperkalemia 2/2 non-compliance of HD for ESRD, RESOLVED -resolved with HD -continue MWF HD per Dr. Hurd's rx Rib Contusion -from fall prior to admission -Rib xray negative for fx Anemia of ESRD -Hb stable at 8, s/p hemorrhage -See above Thrombocytopenia -anticoagulation still held due to dec. in plts, recent bleeding episode Diarrhea, resolved -C diff toxin & ribozyme negative HLD -continue home meds HTN -continue home meds Multi-substance abuse -MD kevin, sweet to service counselor for cessation DVT ppx: hold Diet: renal/CC <Viv Dalton - Last Filed: 09/12/18 10:50> Attending Addendum - Attending Addendum Date/Time: 09/12/18 6728 I personally evaluated the patient and discussed the management with Dr. Dalton. I agree with the History, Examination, Assessment and Plan documented above with any addition or exceptions noted below. Patient continues to make decisions that affect the successful treatment of his conditions. He is refusing much of his insulin, despite him being a type 1 diabetic. Blood sugars labile. He had CT this morning and result pending. ID on board for need for ad terminal makeup operator antibiotic therapy that can be given with his HD sessions assuming he shows up for them. Will be transfused again today due to low H/H in setting of acute hemorrhage a few days ago. Awaiting final recs from ID but likely nearing stability for discharge in the next 1-2 days. <Efraín Mckinley - Last Filed: 09/12/18 11:57>
[2018-09-12] MEDS: Sevelamer Carbonate 800 MG TAB PO SCH ×2 (07:45→14:32)
[2018-09-12] MEDS: HumaLOG 300 UNITS/3 ML VIAL SC SCH ×2 (07:47→11:50)
--- NOTE | 2018-09-12 08:17 | EKG ---
Test Reason : Blood Pressure : / mmHG Vent. Rate : 104 BPM Atrial Rate : 104 BPM P-R Int : 124 ms QRS Dur : 088 ms QT Int : 316 ms P-R-T Axes : 054 056 073 degrees QTc Int : 415 ms Sinus tachycardia Nonspecific T wave abnormality Abnormal ECG When compared with ECG of 31-JUL-2018 15:12, No significant change was found Confirmed by DR. Harry NICHOLAS ([id number]) on 09/12/2018 8:16:25 AM Referred By: BABATUNDE mireles Confirmed By:DR. Harry NICHOLAS
[2018-09-12] MEDS ORDERED: Insulin Glargine 16 UNITS in Pre-Filled Syringe 1 EACH SC SCH (09:00)
--- NOTE | 2018-09-12 09:39 | CT ---
CT THORAX NONCONTRAST: DATE: 09-12-18 COMPARISON: 01-14-18 HISTORY: 37-year-old male with chronic renal failure presents with dyspnea and chest pain. Rule out pneumonia. FINDINGS: Diffuse edema throughout the subcutaneous fat circumferentially around the chest wall. Small bilatera l pleural effusions. The volume of the right pleural effusion is approximately 5% of the right hemith oracic volume. The volume of the left pleural effusion is approximately 10% of the left hemithoracic volume. There are mildly displaced fractures, with early callus, at the posteromedial and posterolate ral aspects of the left 7th and 8th ribs, and the posteromedial aspect of the left 9th rib. There is a subpulmonic component of the left pleural effusion. There is an airspace opacity abutting the left pleural effusion in the left lower lobe. This is probably atelectasis. There are interstitial densit ies in the remaining portions of the left lower lobe. There is mild subsegmental atelectasis abutting the small right pleural effusion. There is cardiomegaly. No thoracic aortic aneurysm. Left subclavia n vein metallic stents. Stents are also present in the left arm and in the region of the left axillar y vein. No pneumothorax. There is a right internal jugular double lumen dialysis catheter with distal tip at the SVC/right atrial junction. There is an approximately 4 x 4 x 2 cm soft tissue attenuation , circumscribed mass at the inferior, posteromedial aspect of the right hemithoracic cavity, abutting the right prevertebral space. This has not changed since 01-14-18. The previously demonstrated extensive right sided pneumonitis, including cavitary components, has res olved. IMPRESSION: 1. Subacute, traumatic, mildly displaced fractures of left posterior ribs. 2. Small bilateral pleural effusions, left greater than right. 3. Airspace opacity in the left lower lobe, favored to represent atelectasis rather than pneumonia. 4. Multiple left sided vascular stents. 5. Right sided central hemodialysis vascular catheter. 6. Pleural based mass at the posterior, inferior medial right hemithoracic cavity, is unchanged since 01-14-18. Etiology is uncertain. ZEB Nova POS: URIAH
[2018-09-12] MEDS: Cinacalcet HCl 30 MG TAB PO SCH (10:22)
[2018-09-12] MEDS: levETIRAcetam 500 MG TAB PO SCH (10:22)
[2018-09-12] MEDS: Amlodipine 10 MG TAB PO SCH (10:22)
[2018-09-12] MEDS: hydrALAZINE 25 MG TAB PO SCH (10:23)
[2018-09-12] MEDS: cefTRIAXone\\ROCEPHIN 2 GM in Sodium Chloride 0.9% 100 ML IVPB SCH (10:23)
[2018-09-12] MEDS: Triple Antibiotic Oint 1 GM Packet TOP SCH (10:32)
--- NOTE | 2018-09-12 12:34 | PRG ---
DATE OF SERVICE: 09/12/2018 SUBJECTIVE: This is a 37-year-old gentleman, being seen for end-stage renal disease. The patient de nies any nausea, vomiting, or chest pain. OBJECTIVE: See above. GENERAL: Patient was awake and alert. VITAL SIGNS: Afebrile, pulse 92, breathing 16, blood pressure 141/79. GENERAL APPEARANCE AND MENTAL STATUS: Fair. HEAD/NECK: Normocephalic. Atraumatic. EYES: EOMI. No deformity. EARS: Clear. No ulcers. NOSE: Intact. No lesions. MOUTH: Clear. No discharge. THROAT: Clear. No exudate. LUNGS: Clear. No crackles. CARDIAC: S1, S2. No rub. ABDOMEN: Benign. BS+. GENITALIA/RECTUM: Clif[place] absent. BACK/EXTREMITIES: Edema 0+, ulcer. NEUROLOGICAL: Alert and motor intact. SKIN: Rash - bruise. LYMPHATICS: Edema - ulcer. LABORATORY DATA: Labs show hemoglobin 7.1. ASSESSMENT AND RECOMMENDATIONS: 1. Stage 6 chronic kidney disease, continue hemodialysis. 2. Hypertension, stable. 3. Anemia, stable. 4. Medication based on glomerular filtration rate are appropriate. We will plan transfusion.
--- NOTE | 2018-09-12 18:46 | PRG ---
DATE OF SERVICE: 09/12/2018 SUBJECTIVE: He is feeling better, being dialyzed at this time. He denies any back pain, no shortnes s of breath, no abdominal pain. OBJECTIVE: VITALS: T-max 100.4 yesterday, currently 97.5. Other vital signs are normal. GENERAL: Awake, alert, appears chronically ill, no acute distress. LUNGS: Symmetric air entry. HEART: S1, S2, regular rate. ABDOMEN: Soft, not distended. Pain in the right anterior chest wall area. NEUROLOGIC: Unchanged. LABORATORY DATA: White cell count 11.8, hemoglobin 7.1, platelets 121,000. Chemistries are not juanjose rkable. Chest CT showed subacute traumatic mild displaced fractures, left posterior ribs, small bila teral pleural effusions, left greater than right, airspace opacity in left lower lobe. 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 ASSESSMENT AND DISCUSSION: Type 1 diabetes with end-stage renal disease on hemodialysis through an A V graft until recently. Complications with AV graft with possible infection by MSSA bacteremia recurrence from December, likely the same organism. The main concern here is the graft colonization. Endocarditis is another conside ration. There is no evidence of spinal infection or other bone and joint sites involvement at this t leticia. We will plan vancomycin for protected period of time with end date of therapy around October d. This should be given at dialysis through a sliding scale. Because of his history of adherence pr oblems, the vancomycin will give us a little bit more compared with cefazolin. The patient is at risk for recrudescence of the bacteremia if the residual graft in place is actually colonized nicole edwards
[2018-09-12 18:49] VITALS: TEMP 97.4
[2018-09-12 18:50] VITALS: BP 104/59
--- NOTE | 2018-09-12 18:58 | PDOC.EVN ---
Event Note - Event Note Event Note: Stopped by patient's room at ~18:00 after being paged that the patient wanted to leave AMA. Was told his last BG check was 47 and he was refusing a recheck. Advised patient that staying in the hospital was what we recommended, especially since his last BG check was so low. Told him that if he left it would be against medical advice and that he could/would likely end up right back in the hospital if he were to leave too soon. Patient endorsed understanding and said he was willing to take the risk of leaving and wanted his paperwork so he could go home. I informed the nurse and she stated she would remove his central line and give him the paperwork to leave.
== END 2018-09-12 18:40 | disposition left against medical advice (07) | DRG 853 ==
LOC: ERS 07:57 → IMCU/EMU 09:45
PROVIDERS: ADMIT Family Medicine; ATTEND Family Medicine
PROC: 5A1D70Z Performance of Urinary Filtration, Intermittent, Less than 6 Hours Per Day (ICD-10-PCS; principal; 2018-09-07)
PROC: 03L80ZZ Occlusion of Left Brachial Artery, Open Approach (ICD-10-PCS; 2018-09-10)
PROC: 06HN33Z Insertion of Infusion Device into Left Femoral Vein, Percutaneous Approach (ICD-10-PCS; 2018-09-10)
PROC: 0JH63XZ Insertion of Tunneled Vascular Access Device into Chest Subcutaneous Tissue and Fascia, Percutaneous Approach (ICD-10-PCS; 2018-09-10)
PROC: 02HV33Z Insertion of Infusion Device into Superior Vena Cava, Percutaneous Approach (ICD-10-PCS; 2018-09-10)
PROC: 30233N1 Transfusion of Nonautologous Red Blood Cells into Peripheral Vein, Percutaneous Approach (ICD-10-PCS; 2018-09-10)
DX: A41.01 Sepsis due to Methicillin susceptible Staphylococcus aureus (principal); J18.9 Pneumonia, unspecified organism; N18.6 End stage renal disease; I13.2 Hypertensive heart and chronic kidney disease with heart failure and with stage 5 chronic kidney disease, or end stage renal disease; E87.1 Hypo-osmolality and hyponatremia; T82.838A Hemorrhage due to vascular prosthetic devices, implants and grafts, initial encounter; T82.898A Other specified complication of vascular prosthetic devices, implants and grafts, initial encounter; N17.9 Acute kidney failure, unspecified; Z53.21 Procedure and treatment not carried out due to patient leaving prior to being seen by health care provider; I50.9 Heart failure, unspecified; L98.499 Non-pressure chronic ulcer of skin of other sites with unspecified severity; E10.22 Type 1 diabetes mellitus with diabetic chronic kidney disease; Z99.2 Dependence on renal dialysis; Z91.15 Patient's noncompliance with renal dialysis; E87.5 Hyperkalemia; E10.65 Type 1 diabetes mellitus with hyperglycemia; D63.1 Anemia in chronic kidney disease; E78.5 Hyperlipidemia, unspecified; D69.59 Other secondary thrombocytopenia; F17.210 Nicotine dependence, cigarettes, uncomplicated; S20.212A Contusion of left front wall of thorax, initial encounter; E10.51 Type 1 diabetes mellitus with diabetic peripheral angiopathy without gangrene; R19.7 Diarrhea, unspecified; H54.7 Unspecified visual loss; F32.9 Major depressive disorder, single episode, unspecified; Z89.511 Acquired absence of right leg below knee; Z95.820 Peripheral vascular angioplasty status with implants and grafts; Z79.4 Long term (current) use of insulin; Z88.0 Allergy status to penicillin; W05.0XXA Fall from non-moving wheelchair, initial encounter
CPT/HCPCS: 36415; 36416; 36430; 71045; 71250; 76000; 80048; 80053; 80202; 82010; 82550; 82553; 83036; 83605; 83690; 83735; 83880; 84145; 84484; 85025; 86850; 86900; 86901; 87040; 87077; 87149; 87186; 87324; 87449; 87493; 87804; 90935; 93005; 93010; 93306; 93970; 96361; 96365; 96375; C1752; C1769; G0257; G0365; G8978-GP-CJ; G8979-GP-CI; G8987-GO-CL; G8988-GO-CJ; J0670; J0692; J0696; J1644; J1815; J1956; J2001; J2405; J2704; J2720; J3010; J3370; J7050; P9016

== ENCOUNTER 2018-09-18 13:27 | Day surgery (SDC) | payer MEDICARE, MEDICAID ==
[2018-09-17 17:03] VITALS: BMI 22.3
[2018-09-18] MEDS ORDERED: Insulin Regular 300 UNITS/3 ML VIAL ONE (14:56)
[2018-09-18] MEDS ORDERED: Midazolam HCl 2 mg/2 ml Vial ONE (15:14)
[2018-09-18] MEDS ORDERED: Levofloxacin 500 mg/D5W 100 ml Premix Bag ONE (15:16)
[2018-09-18] MEDS ORDERED: Bupivacaine HCl 0.5%/Epinephrine 1:200,000/PF 30 ml Vial ONE ×2 (15:54→18:58)
[2018-09-18] MEDS ORDERED: Heparin 10,000 UNITS/ 10 ML VIAL ONE ×2 (16:39→21:38)
[2018-09-18] MEDS ORDERED: PROPOFOL 200 MG/20 ML VIAL ONE (16:39)
[2018-09-18] MEDS ORDERED: PHENYLEPHRINE-NS 100 MCG/ML 10 ML SYRINGE ONE ×2 (16:39)
[2018-09-18] MEDS ORDERED: Protamine Sulfate 50 MG/5 ML VIAL ONE (18:58)
[2018-09-18] MEDS ORDERED: Heparin 5,000 UNITS/ML VIAL ONE (18:58)
[2018-09-18] MEDS ORDERED: Lidocaine 2% w/Epinephrine 1:200K 20 ML VIAL ONE (18:58)
[2018-09-18] MEDS ORDERED: Lidocaine 2% PF 5 ML VIAL ONE (18:59)
[2018-09-18] MEDS ORDERED: Fentanyl 100 MCG/2 ML VIAL ONE (19:09)
[2018-09-18] MEDS ORDERED: Propofol 500 MG/50 ML VIAL ONE (19:16)
--- NOTE | 2018-09-18 20:34 | HP ---
HISTORY OF PRESENT ILLNESS: A 37-year-old white male who is an hour late reporting for surgery today. The patient had a left upper arm dialysis graft that was placed in 2011. He has had multiple interventions with stents placed in his subclavian vein and axillary vein along the graft. He suffered bleeding required an emergency operation on 09/10/2018 with removal of the extruded graft and segment of stent home health was arranged for him, but he declined visits. He has not had a dressing change since leaving the hospital. The patient presents today for a right arm fistula graft. Arm block has been established. Previous vein mapping has been performed, cephalic right 1.6, 1.7, 1.4 mm; antecubital area 2.7 mm; basilic 2.7, 1.9, 2.3, and 1.3 mm. Plan is to place a right arm fistula or graft. Risks and benefits were explained and he consents. HOME MEDICATIONS: 1. Keppra. 2. Apresoline. 3. Renvela. 4. Sertraline. 5. Lantus insulin. 6. Humalog insulin. 7. Sensipar. 8. Amlodipine. He uses [facility]. ALLERGIES: PENICILLIN. PAST SURGICAL HISTORY: 1. Previous right [id number] amputation. 2. Left arm graft, 2011, multiple interventions. SOCIAL HISTORY: Tobacco, none; alcohol, none. The patient lives with his family. He has a history of noncompliance. PAST MEDICAL HISTORY: 1. ESRD, on maintenance dialysis, Monday, Monday, and Monday. 2. Diabetes mellitus, type 1. 3. Hypertension. 4. Polysubstance abuse. PHYSICAL EXAMINATION: HEAD, EYES, EARS, NOSE, AND THROAT: Unremarkable. LUNGS: Clear to auscultation. CARDIAC: Regular rhythm without murmur or gallop. ABDOMEN: Soft and nontender. SKIN: Left upper arm wound packing removed. Wound is clean. There is no infection. dialysis catheter. ASSESSMENT: End-stage renal disease. Needs dialysis access. Left arm is exhausted due to multiple stentings. PLAN: Placement of fistula or graft, right arm. Unfortunately, he had an antecubital IV during the last hospitalization and hopefully this will not result in thrombose and predispose to an arm graft. Job ID: [id number]
--- NOTE | 2018-09-21 10:07 | OP ---
DATE OF PROCEDURE: 09/18/2018 PREOPERATIVE DIAGNOSES: 1. End-stage renal disease. 2. Exhausted access, left upper extremity with hemorrhage and open wound in the left arm for removal of segment of the PTFE graft placed in 2011 and stent placed. 3. Left subclavian and left axillary vein stenting in the past. POSTOPERATIVE DIAGNOSES: 1. End-stage renal disease. 2. Exhausted access, left upper extremity with hemorrhage and open wound in the left arm for removal of segment of the PTFE graft placed in 2011 and stent placed. 3. Left subclavian and left axillary vein stenting in the past. PROCEDURES PERFORMED: Right arm primary fistula, perforatoring branch antecubital vein to the proximal radial artery, outflow with cephalic vein only, upper arm calibrated to 3.5 mm coronary dilator. ANESTHESIA: Regional, TIVA. RESERVATION AGENT: CARMEN Bullard. DESCRIPTION OF PROCEDURE: The patient was taken to the operating room, underwent regional anesthesia and intravenous sedation. The right upper extremity was prepared with ChloraPrep and draped in routine fashion. An incision was made in the proximal forearm below the antecubital fossa, continued to the skin and subcutaneous tissue identifying the acceptable antecubital vein. This was dissected free, dissected the perforating branches, divided between 4-0 silk ties and clips. A good vein was identified, spatulated over branch-point and flushed with heparinized saline solution, interrogated with coronary dilators, placing coronary dilators from 2 mm to 3.5 mm coronary dilator out the cephalic vein outflow tract. This was then flushed again with heparinized saline solution. The patient was given 5000 units of heparin intravenously and brachial, radial, and ulnar artery dissected free. Clamped with vascular clamps. After adequate heparin circulation time, a longitudinal arteriotomy was made in the proximal artery and elongated with the Ness scissors, end vein to side proximal artery anastomosis was created with continuous sutures of 6-0 Prolene, releasing vascular clamps following good flow in the fistula with good Doppler signal interrogation at the cephalic vein upper arm. Hemostasis was ensured with Surgicel. The patient received 25 mg of protamine intravensously by Anesthesia. Subcutaneous tissues were reapproximated with 3-0 Monocryl, skin with subdermal 4-0 Monocryl and dermabond applied. Job ID: [id number]
== END 2018-09-18 21:55 | disposition home or self-care (01) ==
LOC: SDC 13:27
PROVIDERS: ATTEND Specialist
PROC: 031B0ZF Bypass Right Radial Artery to Lower Arm Vein, Open Approach (ICD-10-PCS; principal; 2018-09-18)
DX: I12.0 Hypertensive chronic kidney disease with stage 5 chronic kidney disease or end stage renal disease (principal); E10.22 Type 1 diabetes mellitus with diabetic chronic kidney disease; N18.6 End stage renal disease; F19.11 Other psychoactive substance abuse, in remission; Z88.0 Allergy status to penicillin; Z91.19 Patient's noncompliance with other medical treatment and regimen; Z79.899 Other long term (current) drug therapy; Z99.2 Dependence on renal dialysis; Z98.890 Other specified postprocedural states
CPT/HCPCS: 36416; 96374; J0670; J1642; J1644; J1815; J1956; J2001; J2250; J2704; J2720; J3010

== ENCOUNTER 2018-09-26 08:53 | Observation (INO) | payer MEDICARE, MEDICAID ==
[2018-09-26 09:42] LABS: #Basophils 0.1 thou/uL (0.0-0.2); #Lymphocytes 1.4 thou/uL (1.20-3.40); #Monocytes 1.4 thou/uL (0.11-0.59); #Neutrophils 12.8 thou/uL (1.40-6.50); %Basophils 0.3 % (0.0-1.0); %Eosinophils 0.3 % (0.0-10.0); %Lymphocytes 8.7 % (21.0-51.0); %Monocytes 9.1 % (0.0-10.0); %Neutrophils 81.5 % (42.0-75.0); Hemoglobin 10.3 g/dL (14.0-18.0); Mean Corpuscular HGB CONC 31.3 g/dL (32.0-36.0); Mean Corpuscular Hemoglobin 29.3 pg (27.0-31.0); Mean Corpuscular Volume 93.7 fL (78.0-98.0); Mean Platelet Volume 10.8 fL (7.4-10.4); Platelet Count 261 thou/uL (130-400); RBC Distribution Width 13.9 % (11.5-14.5); Red Blood Cell (RBC) Count 3.51 mill/uL (4.70-6.10); White Blood Cell (WBC) Count 15.7 thou/uL (4.8-10.8)
--- NOTE | 2018-09-26 09:58 | RAD ---
FRONTAL VIEW CHEST: Date: 09/26/18 COMPARISON: 09/10/18. INDICATION: Weakness. FINDINGS: There is a stable tunneled vascular catheter of the right chest. The lungs are clear. Vascular stent again seen at the left upper chest and left axilla. No significant interval change. IMPRESSION: Stable chest. POS: TPC
[2018-09-26 10:04] LABS: ALT (SGPT) Less than 7 U/L (8-55); AST (SGOT) 7 U/L (5-34); Albumin 3.1 g/dL (3.5-5.0); Alkaline Phosphatase 127 U/L (40-150); Anion Gap 19 mmol/L (10-20); BUN (Urea Nitrogen) 76 mg/dL (8.9-20.6); Bilirubin, Total 0.2 mg/dL (0.2-1.2); CK (CPK) 27 U/L (30-200); Calc. Creatinine Clearance 0 mL/min (70-130); Calcium 9.9 mg/dL (7.8-10.44); Carbon Dioxide 16 mmol/L (22-29); Chloride 100 mmol/L (98-107); Estimated GFR-MDRD 7; Globulin 4.4 g/dL (2.4-3.5); Glucose 506 mg/dL (70-105); Lipase 27 U/L (8-78); Potassium 5.6 mmol/L (3.5-5.1); Protein, Total 7.5 g/dL (6.0-8.3); Sodium 129 mmol/L (136-145)
[2018-09-26 10:09] LABS: CKMB 1.9 ng/mL (0-6.6)
[2018-09-26 11:33] LABS: Base Excess-Venous -5.7 mmol/L (0 (+/- 2.5)); Bicarbonate (HCO3v) 20.3 mmol/L (22.0-29.0); CO2 Tension (PvCO2) 40.6 mmHg (41.0-51.0); Calcium, Ionized 1.23 mmol/L (1.12-1.32); O2 Tension (PvO2) 89.7 mmHg (35.0-45.0); Potassium 5.6 mmol/L (3.4-4.7); T. Carbon Dioxide 21.5 mmol/L (1.0-85.0); pH (Venous) 7.306 (7.35-7.45)
[2018-09-26] MEDS ORDERED: Sodium Bicarb 50 MEQ/50 ML Abboject 8.4% SYRINGE ONE (11:59)
[2018-09-26] MEDS ORDERED: Insulin Regular 300 UNITS/3 ML VIAL ONE (11:59)
[2018-09-26] MEDS ORDERED: Calcium Chloride 1 GM/10 ML Abboject SYRINGE ONE (11:59)
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
[2018-09-26] MEDS ORDERED: Ondansetron ODT 4 MG TAB PO PRN (12:29)
[2018-09-26] MEDS ORDERED: Dextrose 50% Abboject 50 ML SYRINGE SLOW IVP PRN ×2 (12:29→13:01)
[2018-09-26] MEDS ORDERED: HumaLOG 300 UNITS/3 ML VIAL SC PRN (12:29)
[2018-09-26] MEDS ORDERED: Dextrose 5% in Water 1,000 ML IV PRN ×2 (12:29→13:01)
[2018-09-26] MEDS ORDERED: Acetaminophen 325 MG TAB PO PRN (12:29)
[2018-09-26] MEDS ORDERED: Ondansetron PF 4 MG/2 ML Vial IVP PRN (12:29)
--- NOTE | 2018-09-26 14:31 | HP ---
HISTORY OF PRESENT ILLNESS: I have reviewed the H and P of Dr. Joy and agreed with her assessment and plan. Mr. Brush is a 37-year-old black male with end-stage renal disease, on dialysis, and type 1 diabetes, noncompliant, who presented to the emergency room with a 1-day history of "weakness." He denied any fever or chills. His review of systems are negative for sore throat, ear pain, productive cough, abdominal pain or vomiting, or any evidence of skin infections. He also states he had diarrhea, but he has had this chronically for quite some time and this is not a new symptom. As stated, he did deny any fever or chills. He was hospitalized a few weeks ago with a graft infection/contamination with MSSA. He has been on vancomycin intravenously administered during dialysis in the interim. He had a new graft placed last week in the right antecubital fossa. PHYSICAL EXAMINATION: VITAL SIGNS: He is currently afebrile with a blood pressure of 146/80. His pulse rate is 105 and regular. EAR, NOSE, AND THROAT: No erythema or exudate. NECK: Supple. CARDIAC: Heart rhythm is regular without gallop or murmur noted. LUNGS: Clear with no rales, rhonchi, or wheezes. No respiratory distress. ABDOMEN: Flat and soft without guarding, rebound, or rigidity. Skin: Close inspection of his skin shows no signs of any soft tissue infection. LABORATORY DATA: White count is 15,700, hemoglobin is 10.3, hematocrit is 32.9. Venous blood gas shows a pH of 7.31, pCO2 of 40.6, and O2 of 89.7. Chemistries; sodium was 129, potassium 5.6, chloride 100, bicarbonate is 16, BUN is 76, creatinine is 10.2, glucose is 506. His procalcitonin was elevated at 6.06. ASSESSMENT: 1. End-stage renal disease, on dialysis. 2. History of Methicillin-susceptible Staphylococcus aureus bacteremia, ongoing since last December. 3. Noncompliance. DISPOSITION: He will be admitted and undergo dialysis later today. He is back on his vancomycin and this will be continued according to Dr. Lopez until around October 24. We will continue to monitor for any other signs of infection. Job ID: [id number]
[2018-09-26] MEDS: Heparin 5,000 UNITS/ML VIAL SC SCH ×2 (15:44→22:00)
[2018-09-26] MEDS ORDERED: Vancomycin HCl 250 MG in Sodium Chloride 0.9% 100 ML IVPB SCH (16:00)
[2018-09-26] MEDS ORDERED: Vancomycin HCl 500 MG in Sodium Chloride 0.9% 100 ML IVPB SCH (16:00)
[2018-09-26] MEDS ORDERED: Vancomycin Sliding Scale 1 EACH FS ONE (16:00)
[2018-09-26] MEDS ORDERED: Vancomycin HCl 1 GM in Premix Bag 1 BAG IVPB SCH (16:00)
[2018-09-26] MEDS ORDERED: Vancomycin HCl 750 MG in Sodium Chloride 0.9% 250 ML 250 ML IVPB SCH (16:00)
[2018-09-26] MEDS ORDERED: HOLD VANCOMYCIN FOR LEVEL >20 FS SCH (16:00)
[2018-09-26 16:19] LABS: Anion Gap 15 mmol/L (10-20); BUN (Urea Nitrogen) 81 mg/dL (8.9-20.6); Calc. Creatinine Clearance 9 mL/min (70-130); Calcium 10.5 mg/dL (7.8-10.44); Carbon Dioxide 22 mmol/L (22-29); Chloride 103 mmol/L (98-107); Estimated GFR-MDRD 7; Glucose 222 mg/dL (70-105); Potassium 5.1 mmol/L (3.5-5.1); Sodium 135 mmol/L (136-145)
[2018-09-26] MEDS ORDERED: Nicotine 21 MG PATCH TD SCH (21:00)
[2018-09-27 02:39] LABS: Band 6 % (5-11); Hemoglobin 8.5 g/dL (14.0-18.0); Lymphocytes 14 % (21-51); MDiff Complete? YES; Mean Corpuscular HGB CONC 33.3 g/dL (32.0-36.0); Mean Corpuscular Hemoglobin 30.6 pg (27.0-31.0); Mean Corpuscular Volume 91.8 fL (78.0-98.0); Mean Platelet Volume 10.5 fL (7.4-10.4); Monocytes 8 % (0-10); Neutrophil 72 % (42-75); Platelet Count 198 thou/uL (130-400); RBC Distribution Width 13.7 % (11.5-14.5); Red Blood Cell (RBC) Count 2.77 mill/uL (4.70-6.10); White Blood Cell (WBC) Count 10.8 thou/uL (4.8-10.8)
[2018-09-27 03:13] LABS: Anion Gap 12 mmol/L (10-20); BUN (Urea Nitrogen) 26 mg/dL (8.9-20.6); Calc. Creatinine Clearance 19 mL/min (70-130); Calcium 9.1 mg/dL (7.8-10.44); Carbon Dioxide 28 mmol/L (22-29); Chloride 98 mmol/L (98-107); Estimated GFR-MDRD 18; Glucose 364 mg/dL (70-105); Potassium 3.6 mmol/L (3.5-5.1); Sodium 134 mmol/L (136-145)
--- NOTE | 2018-09-27 06:03 | PDOC.FM ---
- Subjective Subjective: Patient resting in bed. Patient received HD yesterday. States he feels better today, but not quite back to baseline. Patient denies pain, but states that he has a generalized weakness till. No events overnight. - Objective Vital Signs & Weight: Vital Signs (12 hours) Temp Pulse Resp BP Pulse Ox 09/27/18 04:00 99.4 F 102 H 122/58 L 98 09/27/18 00:00 98.2 F 103 H 18 116/58 L 97 09/26/18 21:15 97.9 F 99 18 122/65 98 Weight Weight 65.346 kg I&O: 09/25/18 09/26/18 09/27/18 06:59 06:59 06:59 Output Total 0 Balance 0 Result Diagrams: 09/27/18 02:09 09/27/18 02:09 <Dipika Joy - Last Filed: 09/27/18 08:37> - Objective Vital Signs & Weight: Vital Signs (12 hours) Temp Pulse Resp BP BP Pulse Ox 09/27/18 09:46 101 H 138/61 09/27/18 08:00 99.3 F 101 H 16 138/61 97 09/27/18 04:00 99.4 F 102 H 122/58 L 98 09/27/18 00:00 98.2 F 103 H 18 116/58 L 97 Weight Weight 65.346 kg I&O: 09/26/18 09/27/18 09/28/18 06:59 06:59 06:59 Intake Total 340 300 Output Total 0 Balance 340 300 Result Diagrams: 09/27/18 02:09 09/27/18 02:09 <Tj Heredia - Last Filed: 09/27/18 10:19> Phys Exam - Physical Examination Constitutional: NAD HEENT: PERRLA, moist MMs, sclera anicteric Neck: full ROM Respiratory: clear to auscultation bilateral Cardiovascular: RRR, no significant murmur, no rub Gastrointestinal: soft, non-tender, positive bowel sounds Musculoskeletal: no edema Neurological: non-focal Psychiatric: normal affect, A&O x 3 Skin: no rash <Dipika Joy - Last Filed: 09/27/18 08:37> Dx/Plan (1) Diarrhea Code(s): R19.7 - DIARRHEA, UNSPECIFIED Status: Acute (2) Tobacco abuse Code(s): Z72.0 - TOBACCO USE Status: Acute (3) Anemia of renal disease Code(s): D63.1 - ANEMIA IN CHRONIC KIDNEY DISEASE Status: Chronic (4) Anxiety and depression Code(s): F41.9 - ANXIETY DISORDER, UNSPECIFIED; F32.9 - MAJOR DEPRESSIVE DISORDER, SINGLE EPISODE, UNSPECIFIED Status: Chronic (5) Diabetes mellitus type 1 with complications Code(s): E10.8 - TYPE 1 DIABETES MELLITUS WITH UNSPECIFIED COMPLICATIONS Status: Chronic (6) Diastolic CHF Code(s): I50.30 - UNSPECIFIED DIASTOLIC (CONGESTIVE) HEART FAILURE Status: Chronic (7) ESRD (end stage renal disease) on dialysis Code(s): N18.6 - END STAGE RENAL DISEASE; Z99.2 - DEPENDENCE ON RENAL DIALYSIS Status: Chronic (8) HLD (hyperlipidemia) Code(s): E78.5 - HYPERLIPIDEMIA, UNSPECIFIED Status: Chronic (9) Hyperglycemia due to type 1 diabetes mellitus Code(s): E10.65 - TYPE 1 DIABETES MELLITUS WITH HYPERGLYCEMIA Status: Chronic (10) Hypertension Code(s): I10 - ESSENTIAL (PRIMARY) HYPERTENSION Status: Chronic Qualifiers: Hypertension type: essential hypertension Qualified Code(s): I10 - Essential (primary) hypertension (11) Polysubstance abuse Code(s): F19.10 - OTHER PSYCHOACTIVE SUBSTANCE ABUSE, UNCOMPLICATED Status: Chronic - Plan Plan: Hyperglycemia 2/2 to noncompliance - Glucose 506 on arrival; improved to 200-300s and now back in 400s - patient given insulin in ED; Will increase insulin, aggressive SS, ACHS accuchecks - pt acidosis, no anion gap, ketones present - not criteria for DKA; will continue to monitor; no drip at this time - Elevated WBC - pt recently treated for MSSA - will continue Vanc per nikki until Oct 24 JUAN J on CKD - Cr 10.19 -> 4.57 after dialysis - Will trend with daily BMPs - consulting Dr. Gonzalez ESRD on HD - see above DM type 1 - see above Leukocytosis - WBC 15.7->10.8 - Will continue to trend - afebrile Hyperkalemia - K 5.6->3.6 - Will monitor with BMPs Hyponatremia - sodium is wnl when corrected for hyperglycemia. - patient getting HD - Will monitor with BMPs Normocytic anemia - chronic due to ESRD - Will continue to monitor - Hgb 10.3->8.5 Polysubstance abuse - aware, will group therapy counselor cessation - pt admitted to marijuana and PCP use Tobacco use - aware, will group therapy counselor cessation - nicotine patch HTN - aware, will restart home meds Depression and Anxiety - aware, will restart home meds DISPO: admit to tele, inpatient. Will give HD today and contact Dr. Gonzalez. CODE: FULL VTE ppx: heparin Case discussed with Dr. Moore <Dpiika Joy - Last Filed: 09/27/18 08:37> Attending Addendum - Attending Addendum Date/Time: 09/27/18 1017 I personally evaluated the patient and discussed the management with Dr. Joy I agree with the History, Examination, Assessment and Plan documented above with any addition or exceptions noted below. Patient much better this morning. He feels back to his baseline. Electrolyte abnormalities have corrected after dialysis and he has been evaluated by nephrology who feel he can be discharged. F/u outpatient for possible titration of home insulin regimen. <Tj Heredia - Last Filed: 09/27/18 10:19>
[2018-09-27] MEDS: Insulin Regular 300 UNITS/3 ML VIAL SC PRN ×2 (07:22→10:17)
[2018-09-27] MEDS: Heparin 5,000 UNITS/ML VIAL SC SCH (08:56)
[2018-09-27] MEDS ORDERED: Insulin Glargine 12 UNITS in Pre-Filled Syringe 1 EACH SC SCH (09:00)
[2018-09-27] MEDS ORDERED: Amlodipine 10 MG TAB PO SCH (09:00)
[2018-09-27] MEDS ORDERED: Cinacalcet HCl 30 MG TAB PO SCH (09:00)
[2018-09-27] MEDS ORDERED: levETIRAcetam 500 MG TAB PO SCH (09:00)
[2018-09-27] MEDS ORDERED: hydrALAZINE 25 MG TAB PO SCH (09:00)
[2018-09-27 11:58] VITALS: BP 135/58; TEMP 99.5
[2018-09-27] MEDS ORDERED: HumaLOG 300 UNITS/3 ML VIAL SC SCH (12:00)
[2018-09-27] MEDS ORDERED: Sevelamer Carbonate 800 MG TAB PO SCH (12:00)
--- NOTE | 2018-09-27 12:00 | CON ---
DATE OF CONSULTATION: NEPHROLOGY CONSULT REASON FOR CONSULTATION: Hyperkalemia. HISTORY OF PRESENT ILLNESS: This is a very pleasant 37-year-old gentleman with a history of noncompliance, presented to the hospital. After missing dialysis, the patient's potassium was more than 5.6. The patient's main complaint was weakness. The patient denies headache, numbness, tingling or . Denied any nausea, vomiting or chest pain. The patient had had elevated sugar. PAST MEDICAL HISTORY: Significant for, 1. Endstage renal disease. 2. CVA. 3. Congestive heart failure. 4. Right BKA. 5. Left AV fistula. 6. Diabetes mellitus. 7. Multiple episodes of BKA. . FAMILY HISTORY: Negative for ESRD. ALLERGIES: REVIEWED. MEDICATIONS: Home medications: Reviewed. REVIEW OF SYSTEMS: A 15-point review of system was performed and negative except for what is noted above. NECK: No swelling or lumps. NOSE: No epistaxis or discharge. EYES: No diplopia or pain. MUSCULOSKELETAL: No joint pain. NEUROPSYCHIATRIC SYSTEMS: No suicidal ideation. No ideation. SKIN: Denies any rash or ulcer. CONSTITUTIONAL: No fever or chills. PHYSICAL EXAMINATION: See above. GENERAL APPEARANCE AND MENTAL STATUS: The patient is awake and alert. VITAL SIGNS: Afebrile, pulse 75, breathing is 16, and blood pressure 150/82. HEAD/NECK: Normocephalic. Atraumatic. EYES: EOMI. No deformity. EARS: Clear. No ulcers. NOSE: Intact. No lesions. MOUTH: Clear. No discharge. THROAT: Clear. No exudate. LUNGS: Clear. No crackles. CARDIAC: S1, S2. No rub. ABDOMEN: Benign. Bowel sounds positive. GENITALIA/RECTUM: Clifton absent. BACK/EXTREMITIES: Edema 0+. NEUROLOGICAL: Alert and motor intact. LABORATORY DATA: Showed potassium 5.6, bicarbonate 16. ASSESSMENT AND PLAN: 1. End-stage renal disease, planned dialysis. 2. Hyperkalemia, planned dialysis. 3. planned dialysis. 4. Anemia, stable. 5. Medications based on glomerular filtration rate are appropriate. Risks as well as benefits of dialysis were discussed. Job ID: [id number]
--- NOTE | 2018-09-27 12:09 | PRG ---
DATE OF SERVICE: 09/27/2018 SUBJECTIVE: A 37-year-old male, being seen for end-stage renal disease. The patient denies any nausea, vomiting, or chest pain. OBJECTIVE: The patient is awake and alert. VITAL SIGNS: Pulse 72, breathing 16, blood pressure GENERAL APPEARANCE AND MENTAL STATUS: Fair. HEAD/NECK: Normocephalic. Atraumatic. EYES: EOMI. No deformity. EARS: Clear. No ulcers. NOSE: Intact. No lesions. MOUTH: Clear. No discharge. THROAT: Clear. No exudate. LUNGS: Clear. No crackles. CARDIAC: S1, S2. No rub. ABDOMEN: Benign. Bowel sounds positive. GENITALIA/RECTUM: Clifton absent. BACK/EXTREMITIES: Edema 0+. NEUROLOGICAL: Alert and motor intact. SKIN: LYMPHATICS: LABORATORY DATA: Labs show hemoglobin 8.5. ASSESSMENT: 1. chronic kidney disease, continue hemodialysis. 2. Hypertension, stable. 3. Anemia, stable. 4. Medications based on glomerular filtration rate are appropriate. Job ID: [id number]
[2018-09-27] MEDS ORDERED: Vancomycin HCl 1 GM in Sodium Chloride 0.9% 250 ML 300 ML IVPB SCH (15:30)
--- NOTE | 2018-09-29 11:58 | EKG ---
Test Reason : Blood Pressure : / mmHG Vent. Rate : 102 BPM Atrial Rate : 102 BPM P-R Int : 134 ms QRS Dur : 078 ms QT Int : 330 ms P-R-T Axes : 058 054 084 degrees QTc Int : 430 ms Sinus tachycardia Septal infarct , age undetermined Abnormal ECG Confirmed by MERLIN DUMONT, WICHO ([id number]), acquisition editor ABRIL VAZQUEZ ([id number]) on 09/29/2018 11:57:34 AM Referred By: Confirmed By:WICHO BOYER MD
--- NOTE | 2018-09-30 22:28 | DIS ---
DATE OF ADMISSION: 09/26/2018 DATE OF DISCHARGE: 09/27/2018 RESIDENT: Dipika Joy MD ADMITTING ATTENDING: Medardo Shah MD DISCHARGE ATTENDING: Tj Heredia MD CONSULTS: Dr. Gonzalez. PROCEDURE: Hemodialysis. DISCHARGE MEDICATIONS: 1. Tylenol 650 mg oral every 4 hours as needed. 2. Vancomycin to be given during hemodialysis. 3. Sevelamer carbonate 3 tablets oral three times daily with meals. 4. Sensipar 60 mg oral daily. 5. Hydralazine 25 mg oral three times daily. 6. Amlodipine besylate 10 mg oral daily. 7. Sertraline 25 mg oral daily. 8. Humalog 3 units subcutaneous three times daily with meals. 9. Keppra 500 mg oral twice daily. 10. Lantus 12 units subcutaneous every morning. Discontinued medications: None. HISTORY OF PRESENT ILLNESS/HOSPITAL COURSE: This is a 37-year-old male, who presented with weakness in the ED that is generalized. The patient has a past medical history significant for CHF, diabetes, and end-stage renal disease, on hemodialysis and was recently hospitalized with MSSA secondary to graft infection and has been on vancomycin with hemodialysis. The patient reports that he gets dialysis Monday, Monday, and Monday and does not think that he had missed any recently. The patient states that he has had this feeling when he has previously missed dialysis or is about to be due for dialysis. The patient reports that he is typically ambulatory at home despite right BKA, but has been to unable to move on his own lately. The patient reports diarrhea that is chronic for him. The patient denies headache, dizziness, nausea, vomiting, chest or abdominal pain. Of note , the patient left AMA last admission and had been refusing his insulin. In the ED, the patient was given calcium chloride, sodium bicarbonate, insulin, Levaquin, and vancomycin. The patient was initially tachycardic. The patient had a white count of 15.7, creatinine of 10.38, and sugars in the 500s on arrival. Dr. Gonzalez of Nephrology was consulted and the patient was scheduled for dialysis on 09/27/2018. The patient's sugars improved and creatinine decreased after dialysis. The patient stated that he felt much better on the day of discharge. The patient also had potassium corrected during his stay. The patient admitted to marijuana and PCP use. The patient counseled on cessation. The patient also smokes cigarettes and was counseled on cessation of this as well. The patient states that he understands the need to be compliant with his medication and with hemodialysis in order to prevent re-admissions to the hospital. DISPOSITION: Stable. DISCHARGE INSTRUCTIONS: 1. Location: Home. 2. Diet: Consistent carbohydrate 2000 kilocalories. 3. Activity: Ad-arturo. 4. Followup: Follow up with PCP within 1 week and with tent worker within 3 days. Job ID: [id number] [facility]
== END 2018-09-27 13:00 | disposition home or self-care (01) ==
LOC: ERS 08:53 → 2SE 14:19
PROVIDERS: ADMIT Family Medicine; ATTEND Family Medicine
DX: I13.2 Hypertensive heart and chronic kidney disease with heart failure and with stage 5 chronic kidney disease, or end stage renal disease (principal); E10.22 Type 1 diabetes mellitus with diabetic chronic kidney disease; N18.6 End stage renal disease; I50.32 Chronic diastolic (congestive) heart failure; N17.9 Acute kidney failure, unspecified; Z99.2 Dependence on renal dialysis; Z89.511 Acquired absence of right leg below knee; E10.65 Type 1 diabetes mellitus with hyperglycemia; E87.5 Hyperkalemia; E87.1 Hypo-osmolality and hyponatremia; E78.5 Hyperlipidemia, unspecified; F17.210 Nicotine dependence, cigarettes, uncomplicated; D63.1 Anemia in chronic kidney disease; F41.9 Anxiety disorder, unspecified; F32.9 Major depressive disorder, single episode, unspecified; A49.01 Methicillin susceptible Staphylococcus aureus infection, unspecified site; D72.829 Elevated white blood cell count, unspecified; Z88.0 Allergy status to penicillin; Z86.73 Personal history of transient ischemic attack (TIA), and cerebral infarction without residual deficits; Z91.14 Patient's other noncompliance with medication regimen; Z79.4 Long term (current) use of insulin; Z79.899 Other long term (current) drug therapy; Z79.2 Long term (current) use of antibiotics; Z98.890 Other specified postprocedural states
CPT/HCPCS: 71045; 80048 ×2; 80053; 82010; 82330; 82435; 82550; 82553; 82803; 82947 ×2; 82962 ×2; 83605; 83690; 83880; 84132; 84145; 84295; 84484; 85007; 85014; 85025; 85027; 87040; 93005; 96365; 96368; 96374; 96375; 97139; 99285; G0378 ×2; 36415; 36416; 90935; G0257; J1644; J1815; J1956; J3370

== ENCOUNTER 2018-10-09 15:33 | Observation (INO) | payer MEDICARE, MEDICAID ==
[2018-10-09 16:12] LABS: #Eosinphils 0.2 thou/uL (0.0-0.7); #Lymphocytes 2.1 thou/uL (1.20-3.40); #Monocytes 0.9 thou/uL (0.11-0.59); #Neutrophils 13.2 thou/uL (1.40-6.50); %Basophils 0.3 % (0.0-1.0); %Eosinophils 1.4 % (0.0-10.0); %Lymphocytes 12.5 % (21.0-51.0); %Monocytes 5.6 % (0.0-10.0); %Neutrophils 80.3 % (42.0-75.0); Hemoglobin 9.9 g/dL (14.0-18.0); Mean Corpuscular HGB CONC 31.9 g/dL (32.0-36.0); Mean Corpuscular Hemoglobin 29.2 pg (27.0-31.0); Mean Corpuscular Volume 91.6 fL (78.0-98.0); Mean Platelet Volume 10.5 fL (7.4-10.4); Platelet Count 196 thou/uL (130-400); RBC Distribution Width 16.4 % (11.5-14.5); Red Blood Cell (RBC) Count 3.37 mill/uL (4.70-6.10); White Blood Cell (WBC) Count 16.4 thou/uL (4.8-10.8)
[2018-10-09 16:35] LABS: ALT (SGPT) Less than 7 U/L (8-55); AST (SGOT) 11 U/L (5-34); Albumin 3.3 g/dL (3.5-5.0); Alkaline Phosphatase 165 U/L (40-150); Anion Gap 19 mmol/L (10-20); BUN (Urea Nitrogen) 71 mg/dL (8.9-20.6); Bilirubin, Total 0.3 mg/dL (0.2-1.2); Calc. Creatinine Clearance 0 mL/min (70-130); Calcium 9.8 mg/dL (7.8-10.44); Carbon Dioxide 24 mmol/L (22-29); Chloride 96 mmol/L (98-107); Estimated GFR-MDRD 8; Globulin 4.3 g/dL (2.4-3.5); Glucose 191 mg/dL (70-105); Potassium 6.5 mmol/L (3.5-5.1); Protein, Total 7.6 g/dL (6.0-8.3); Sodium 132 mmol/L (136-145)
--- NOTE | 2018-10-09 17:26 | RAD ---
CHEST ONE VIEW: HISTORY: Evaluate port catheter dislodgement. COMPARISON: Radiograph from 09/26/2018. FINDINGS: The right-sided dialysis catheter tip now projects over the junction of the subclavian and internal j ugular veins. Multiple stents project over the left axilla. IMPRESSION: Partial dislodgement of the dialysis catheter tip, projecting over the junction of the internal jugul ar and subclavian veins. CODE T POS: URIAH
--- NOTE | 2018-10-09 17:55 | CON ---
DATE OF CONSULTATION: NEPHROLOGY CONSULTATION REASON FOR CONSULTATION: Stage 6 chronic kidney disease, on maintenance hemodialysis. HISTORY OF PRESENT ILLNESS: This is a 37-year-old gentleman with a history of noncompliance, presented to the hospital with elevated potassium of 6.5 and he pulled out his catheter. The patient denies headache, numbness, tingling, or weakness. The patient has initially refused dialysis catheter offered by the emergency room services, but later changed the mind. PAST MEDICAL HISTORY: Significant for hypertension, end-stage renal disease, anemia, noncompliance, history of right BKA, AV fistula, diabetes mellitus, multiple episodes of BKA, history of diabetic ketoacidosis. FAMILY HISTORY: Negative for ESRD. ALLERGIES: REVIEWED. MEDICATIONS: Home medications reviewed. REVIEW OF SYSTEMS: Fifteen-point review of systems was performed and negative except for positives noted above. NECK: No swelling or lumps. NOSE: No epistaxis or discharge. EYES: No diplopia or pain. MUSCULOSKELETAL: No joint pain. NEUROPSYCHIATRIC SYSTEMS: No suicidal ideation. No ideation. SKIN: Denies any rash or ulcer. CONSTITUTIONAL: No fever or chills. PHYSICAL EXAMINATION: GENERAL: The patient is awake and alert. VITAL SIGNS: Afebrile, pulse 90, breathing 16, and blood pressure 170/100. GENERAL APPEARANCE AND MENTAL STATUS: Fair. HEAD/NECK: Normocephalic. Atraumatic. EYES: EOMI. No deformity. EARS: Clear. No ulcers. NOSE: Intact. No lesions. MOUTH: Clear. No discharge. THROAT: Clear. No exudate. LUNGS: Clear. No crackles. CARDIAC: S1, S2. No rub. ABDOMEN: Benign. Bowel sounds positive. GENITALIA/RECTUM: Clifton absent. BACK/EXTREMITIES: Edema 0+. NEUROLOGICAL: Alert and motor intact. LABORATORY DATA: Labs showed potassium of 6.5. ASSESSMENT AND PLAN: 1. Stage 6 chronic kidney disease, planned dialysis. 2. Hyperkalemia, planned dialysis. 3. Anemia, stable. 4. Medications based on glomerular filtration rate are appropriate. Failed catheter. Consult Dr. Isabel for new catheter in the morning. Job ID: [id number]
--- NOTE | 2018-10-09 18:31 | PDOC.FPRHP ---
- History of Present Illness Chief Complaint: Dialysis catheter dislodged History of Present Illness: 37 yo M with frequent trips to the ER with ESRD on MWF dialysis. He recently had dialysis catheter placed in his Rt subclavian, after fistula in his left arm was removed 2/2 infection and a right fistula was placed that is not yet mature. Pt stated that today he was changing clothes, blood started running down his chest from his dialysis catheter so he called EMS. He states he missed dialysis yesterday (Monday). In the ED, his dialysis catheter was dislodged. K was elevated at 6.5. Rt femoral vasc cath was placed and he was sent for dialysis. - Allergies/Adverse Reactions Allergies Allergy/AdvReac Type Severity Reaction Status Date / Time Penicillins Allergy Unknown Verified 09/17/18 17:04 - Home Medications Medication Instructions Recorded Confirmed Type Sevelamer Carbonate [Renvela] 3 tab PO TID-WM 09/08/15 09/26/18 History Amlodipine Besylate [amLODIPine 10 mg PO DAILY 09/02/16 09/26/18 History Besylate] Cinacalcet HCl [Sensipar] 60 mg PO DAILY 09/02/16 09/26/18 History hydrALAZINE [Apresoline] 25 mg PO TID 09/02/16 09/26/18 History Sertraline HCl 25 mg PO DAILY 03/03/17 09/26/18 History HumaLOG [HumaLOG Vial] 3 units SC TID-WM vial 06/04/18 09/26/18 Rx Insulin Glargine [Lantus Vial] 12 units SC QAM 30 Days #1 vial 06/04/18 Rx levETIRAcetam [Keppra] 500 mg PO BID #60 tab 06/04/18 09/26/18 Rx HumaLOG [HumaLOG Vial] 0 unit SC TID-WM PRN 09/17/18 09/26/18 History Acetaminophen [Tylenol Regular 650 mg PO Q4H PRN tab 09/27/18 Rx Strength] Vancomycin HCl 1 gm IVPB WILLCALL bag 09/27/18 Rx Vancomycin HCl 250 mg IVPB WILLCALL vial 09/27/18 Rx Vancomycin HCl 750 mg IVPB WILLCALL vial 09/27/18 Rx - History PMHx: CHF, DM1, ESRD on MWF dialysis, right BKA, CVAx2 (2 years ago), HLD, HTN, depression PSHx: Rt BKA, L fistula (removed), Right fistula recently placed, Right vasc cath (subclavian) FHx: noncontributory Social: 1/2 pack for 20 years, occasional marijuana and PCP use, drinks alcohol 1/month - Review of Systems General: reports: fever/chills (Reports no fevers, but he has cold intolerance.) . denies: weight/appetite/sleep changes (Good appetite) Eyes: denies: eye pain, vision changes, other (No ear pain/vision changes) ENT: denies: nasal congestion, rhinorrhea Respiratory: denies: cough, congestion, shortness of breath Cardiovascular: reports: edema (edema in left arm and legs bilat). denies: chest pain, palpitation Gastrointestinal: reports: diarrhea. denies: nausea, vomiting, constipation, abdominal pain, GI bleeding Genitourinary: denies: dysuria, other (hematuria) Skin: reports: lesions (sore on left leg). denies: rashes Musculoskeletal: reports: swelling (left arm and leg). denies: arthritis/ arthralgias Neurological: denies: numbness, weakness Psychological: reports: anxiety, depression - Vital signs BP: [182/98] HR: [100] RR: [18] Tmax: [97.6] Pox: [96]% on [RA] Wt: [84 kg] - Physical Exam Constitutional: NAD, awake, alert and oriented HEENT: normocephalic and atraumatic, PERRLA, EOMI, grossly normal hearing, MMM, oropharynx clear Neck: supple, no LAD Chest: other (Right subclavian vasc cath present) Heart: RRR, normal S1/S2, other (1/6 systolic murmur) Lungs: CTAB, no respiratory distress, good air movement, no rales/rhonchi, no wheezing Abdomen: soft, non-tender, bowel sounds present, no masses/distention Musculoskeletal: normal tone, other (Right BKA) FMR H&P: Results - Labs Result Diagrams: 10/09/18 16:02 10/09/18 16:02 Lab results: WBC 16.4 thou/uL (4.8-10.8) H 10/09/18 16:02 Hgb 9.9 g/dL (14.0-18.0) L 10/09/18 16:02 Hct 30.9 % (42.0-52.0) L 10/09/18 16:02 MCV 91.6 fL (78.0-98.0) 10/09/18 16:02 Plt Count 196 thou/uL (130-400) 10/09/18 16:02 Neutrophils % 80.3 % (42.0-75.0) H 10/09/18 16:02 Sodium 132 mmol/L (136-145) L 10/09/18 16:02 Potassium 6.5 mmol/L (3.5-5.1) H 10/09/18 16:02 Chloride 96 mmol/L (98-107) L 10/09/18 16:02 Carbon Dioxide 24 mmol/L (22-29) 10/09/18 16:02 BUN 71 mg/dL (8.9-20.6) H 10/09/18 16:02 Creatinine 8.66 mg/dL (0.7-1.3) H 10/09/18 16:02 Glucose 191 mg/dL (70-105) H 10/09/18 16:02 Calcium 9.8 mg/dL (7.8-10.44) 10/09/18 16:02 Total Bilirubin 0.3 mg/dL (0.2-1.2) 10/09/18 16:02 AST 11 U/L (5-34) 10/09/18 16:02 ALT Less than 7 U/L (8-55) L 10/09/18 16:02 Alkaline Phosphatase 165 U/L (40-150) H 10/09/18 16:02 Serum Total Protein 7.6 g/dL (6.0-8.3) 10/09/18 16:02 Albumin 3.3 g/dL (3.5-5.0) L 10/09/18 16:02 - EKG Interpretation EKG: WNL - Radiology Interpretation Chest x-ray Status: image reviewed by me, report reviewed by me Additional comment: dislodged catheter FMR H&P: A/P - Problem List (1) Hemodialysis catheter dysfunction Current Visit: Yes Status: Acute Code(s): T82.41XA - BREAKDOWN (MECHANICAL) OF VASCULAR DIALYSIS CATHETER, INIT (2) Anxiety and depression Current Visit: No Status: Chronic Code(s): F41.9 - ANXIETY DISORDER, UNSPECIFIED; F32.9 - MAJOR DEPRESSIVE DISORDER, SINGLE EPISODE, UNSPECIFIED (3) Diabetes mellitus type 1 Current Visit: No Status: Chronic Code(s): E10.9 - TYPE 1 DIABETES MELLITUS WITHOUT COMPLICATIONS (4) Diastolic CHF Current Visit: No Status: Chronic Code(s): I50.30 - UNSPECIFIED DIASTOLIC ( CONGESTIVE) HEART FAILURE Qualifiers: (5) ESRD (end stage renal disease) on dialysis Current Visit: No Status: Chronic Code(s): N18.6 - END STAGE RENAL DISEASE; Z99.2 - DEPENDENCE ON RENAL DIALYSIS (6) HLD (hyperlipidemia) Current Visit: No Status: Chronic Code(s): E78.5 - HYPERLIPIDEMIA, UNSPECIFIED (7) Hypertension Current Visit: No Status: Chronic Code(s): I10 - ESSENTIAL (PRIMARY) HYPERTENSION Qualifiers: Hypertension type: essential hypertension Qualified Code(s): I10 - Essential (primary) hypertension (8) Polysubstance abuse Current Visit: No Status: Chronic Priority: Low Code(s): F19.10 - OTHER PSYCHOACTIVE SUBSTANCE ABUSE, UNCOMPLICATED - Plan 37 yo M with ESRD with dislodged catheter and hyperkalemia #ESRD on MWF dialysis -Dialysis tonight, patient missed Monday dialysis -Hyperkalemic, EKG WNL -Dr. Gonzalez, nephrology consulted -Dr. Isabel consulted from the ED for catheter management #Hyperkalemia -EKG WNL -Receiving dialysis now -AM BMP #Wounds -Wound on left leg, wound on L arm -Patient on antibiotics outpatient -Wound care consulted #CHF #DM1 -12 units insulin daily -SSI -Humalog TID WM #Chronic Diarrhea -Last few visits antigen positive, toxin neg -Contact precautions #HLD #HTN -Home med restarted #Depression -Home meds restarted #Seizures -Home keppra DVT PPX: heparin Code Status: full code FMR H&P: Upper Level - Pertinent history 37 yo AAM with PMH of ESRD on MWF HD, IDDM1, CHF, hx CVA, PVD, medication noncompliance, and polysubstance abuse presenting due to problems with his HD catheter. Pt notes that he missed HD on Monday and started feeling weak and unwell. He inadvertently pulled on his R IJ tunneled cath while changing his shirt. Pt presented to the ER and was initially refusing vascular access to pursue urgent HD. Pt ultimately consented to having R femoral HD catheter placed. Nephrology consulted by STEPHANIE and recommended urgent HD tonight for hyperkalemia with a general surgey consult in AM for new temporary access. Of note, pt recently had RUE fistula placed which has yet to mature. Pt received no medications or interventions in ER. - Pertinent findings VSS Gen: watching TV in NAD CV: RRR Resp: CTAB Ext: R BKA - Plan Date/Time: 10/09/18 183 I, Ben Pierre MD PGY3, have evaluated this patient and agree with findings/ plan as outlined by agriculture internship resident. Pertinent changes/additions are listed here. 1. Hyperkalemia 2/2 noncompliance with ESRD on MWF HD -Pt presents with K of 6.5 without EKG changes. No Calcium given in ER. Nephrology consulted who recommended urgent dialysis. Pt now has temporary R femoral HD catheter. -General surgery consulted for further access until fistula matures. -Trend AM BMP. -Specialist recommendations greatly appreciated. Other medications will be continued for chronic medical conditions. Disposition: Admit to telemetry observation for anticipated length of stay less than two midnights, pending clinical course. Addendum - Attending - Attending Attestation Date/Time: 10/09/18 2100 I personally evaluated the patient and discussed the management with Dr. Maryse Hardwick /Ignacio. I agree with the History, Examination, Assessment and Plan documented above with any addition or exceptions noted below.
[2018-10-09] MEDS ORDERED: Dextrose 5% in Water 1,000 ML IV PRN (20:47)
[2018-10-09] MEDS ORDERED: HumaLOG 300 UNITS/3 ML VIAL SC PRN (20:47)
[2018-10-09] MEDS ORDERED: Dextrose 50% Abboject 50 ML SYRINGE SLOW IVP PRN (20:47)
[2018-10-09] MEDS ORDERED: Activase 2 MG VIAL CATH SCH (21:46)
[2018-10-09] MEDS ORDERED: Sterile Water 10 ML VIAL IVP SCH (21:46)
[2018-10-10 00:01] LABS: HBSAg Index 0.26 S/CO (0-0.99); Hep B Surf Ag Non-Reactive S/CO (NonReactive)
[2018-10-10] MEDS ORDERED: Ondansetron ODT 4 MG TAB PO PRN (00:58)
[2018-10-10] MEDS ORDERED: Acetaminophen 325 MG TAB PO PRN (00:58)
[2018-10-10] MEDS ORDERED: Calcium Carbonate 500 MG ChewTAB PO PRN (00:58)
[2018-10-10] MEDS ORDERED: Ondansetron PF 4 MG/2 ML Vial IVP PRN (00:58)
[2018-10-10] MEDS: levETIRAcetam 500 MG TAB PO SCH ×3 (02:36→10:54)
[2018-10-10 03:16] VITALS: BMI 20.7
[2018-10-10] MEDS ORDERED: Nicotine 14 MG PATCH TD SCH (06:00)
[2018-10-10 06:26] LABS: Anion Gap 16 mmol/L (10-20); BUN (Urea Nitrogen) 32 mg/dL (8.9-20.6); Calc. Creatinine Clearance 20 mL/min (70-130); Carbon Dioxide 26 mmol/L (22-29); Chloride 100 mmol/L (98-107); Estimated GFR-MDRD 17; Glucose 132 mg/dL (70-105); Potassium 4.9 mmol/L (3.5-5.1); Sodium 137 mmol/L (136-145)
[2018-10-10 06:39] LABS: Band 1 % (5-11); Hemoglobin 8.9 g/dL (14.0-18.0); Hypochromia SLIGHT = 6-15 cells (100X) (0-5/hpf); Lymphocytes 10 % (21-51); MDiff Complete? YES; Mean Corpuscular HGB CONC 31.4 g/dL (32.0-36.0); Mean Corpuscular Volume 92.4 fL (78.0-98.0); Mean Platelet Volume 12.3 fL (7.4-10.4); Monocytes 4 % (0-10); Neutrophil 85 % (42-75); PLT Morphology Comment Appears Adequate; Platelet Count 199 thou/uL (130-400); RBC Distribution Width 16.5 % (11.5-14.5); Red Blood Cell (RBC) Count 3.08 mill/uL (4.70-6.10)
[2018-10-10 06:58] LABS: Syphilis Antibody Nonreactive (Nonreactive); Syphilis Antibody Index 0.04 S/CO (<1.00 Non-Reactive)
--- NOTE | 2018-10-10 08:01 | PDOC.FM ---
- Subjective Subjective: Patient seen at bedside this morning resting comfortably. He had HD last night and is feeling better today. He denies any new symptoms or complaints. No acute events over night. - Objective MAR Reviewed: Yes Vital Signs & Weight: Vital Signs (12 hours) Temp Pulse Resp BP BP Pulse Ox 10/10/18 04:00 98.0 F 96 20 119/65 96 10/10/18 00:30 97.2 F L 102 H 16 146/88 H 146/88 H 96 Weight Weight 67.449 kg I&O: 10/09/18 10/10/18 10/11/18 06:59 06:59 06:59 Intake Total 237 Balance 237 Result Diagrams: 10/10/18 01:42 10/10/18 01:42 Phys Exam - Physical Examination Constitutional: NAD HEENT: moist MMs Neck: no JVD Respiratory: clear to auscultation bilateral Cardiovascular: RRR, no significant murmur Gastrointestinal: non-tender, no distention Musculoskeletal: no edema R BKA Neurological: non-focal, normal sensation Psychiatric: A&O x 3 Skin: normal turgor Deviation from normal: Multiple ulcerations on arms and legs Dx/Plan (1) Dialysis catheter clot or failure Code(s): [id number] - Status: Acute (2) Hyperkalemia Code(s): E87.5 - HYPERKALEMIA Status: Resolved (3) Diabetes mellitus type 1 with complications Code(s): E10.8 - TYPE 1 DIABETES MELLITUS WITH UNSPECIFIED COMPLICATIONS Status: Chronic (4) Diastolic CHF Code(s): I50.30 - UNSPECIFIED DIASTOLIC (CONGESTIVE) HEART FAILURE Status: Chronic Qualifiers: (5) ESRD (end stage renal disease) on dialysis Code(s): N18.6 - END STAGE RENAL DISEASE; Z99.2 - DEPENDENCE ON RENAL DIALYSIS Status: Chronic (6) HLD (hyperlipidemia) Code(s): E78.5 - HYPERLIPIDEMIA, UNSPECIFIED Status: Chronic (7) Hypertension Code(s): I10 - ESSENTIAL (PRIMARY) HYPERTENSION Status: Chronic Qualifiers: Hypertension type: essential hypertension Qualified Code(s): I10 - Essential (primary) hypertension (8) Non-compliance with renal dialysis Code(s): Z91.15 - PATIENT'S NONCOMPLIANCE WITH RENAL DIALYSIS Status: Chronic - Plan Plan: 1. Dislodged HD catheter - plan to go back with gen surg today and have new access placed - HD was done last night with temp R femoral trialysis cath 2. ESRD - patient missed HD on Monday and got emergent HD last night - BMP has normalized - Plan for HD again today - Dr Gonzalez has been consulted 3. Hyperkalemia - resolved 4. DM1 - home meds - Low carb diet - accucheck ACHS - SSI 5. HTN - home meds, controlled or mild elevation here 6. dCHF - asymptomatic at this time. Work to avoid overload 7. Multiple DM associated ulcers - wound care has been consulted. Dispo: patient is currently stable. Would expect discharge today or tomorrow pending HD access placement. Addendum - Attending - Attending Attestation Date/Time: 10/10/18 4107 I personally evaluated the patient and discussed the management with Dr. Mclean. I agree with the History, Examination, Assessment and Plan documented above with any addition or exceptions noted below. Patient improved this morning after HD overnight. Receiving HD again today. Going later today for more permanent HD access and further mgmt per surgery recs but consider discharge after procedure if stable.
--- NOTE | 2018-10-10 08:37 | HP ---
HISTORY OF PRESENT ILLNESS: Silvestre Brush is a 37-year-old black male with a maturing right upper arm cephalic vein fistula and right IJ hemodialysis catheter. The patient states that when removing his shirt yesterday, the catheter mostly came out. He was seen in the emergency room and he is noncompliant in his dialysis attendance, and his potassium was noted to be 6.5. A temporary dialysis line was placed last night and he was dialyzed urgently. He has been dialyzed again this morning. Plan is to replace his hemodialysis catheter until his fistula matures. ALLERGIES: PENICILLIN. HOME MEDICATIONS: Keppra, Renvela, sertraline, amlodipine, apresoline, vancomycin, Humalog, Sensipar. PAST MEDICAL HISTORY: The patient is C. diff positive, toxin negative. End-stage renal disease on maintenance dialysis, followed by Dr. Gonzalez. Left subclavian vein stent, multiple stents in the left arm graft that hemorrhaged and required emergent debridement of wound and ligation a few months ago. Subsequently, the wound care has been delivered to the left upper arm, and subsequently, a right upper arm fistula placed. Previous right below-knee amputation. Left arm graft in 2011. Multiple interventions noted above. He has history of noncompliance, end-stage renal disease on maintenance dialysis, diabetes mellitus, hypertension, history of drug abuse, polysubstance use. SOCIAL HISTORY: Tobacco, none. Alcohol, none. The patient lives with his family. PHYSICAL EXAMINATION: VITAL SIGNS: Height 5 feet 11 inches, weight 148 pounds, 20 BMI, temperature 98 degrees, pulse rate 96, blood pressure 119/65. EARS, EYES, NOSE AND THROAT: Unremarkable. LUNGS: Clear to auscultation. CARDIAC: Regular rate and rhythm. No murmur or gallop. ABDOMEN: Soft and nontender. EXTREMITIES: Right upper arm fistula, good thrill and bruit, not mature enough to begin accessing. Right IJ cuffed tunneled dialysis catheter sutured in place. The very tip of the catheter is in the tunnel, it was removed. Nurses will remove the sutures, remove the catheter. ASSESSMENT AND PLAN: 1. Dislodged hemodialysis catheter. We will plan placement of new hemodialysis catheter and he could probably be discharged home later today. He had his right arm cephalic vein fistula formed on 09/18/2018. 2. History of noncompliance. 3. Clostridium difficile issues as above. No diarrhea. Asymptomatic. Job ID: [id number]
[2018-10-10] MEDS ORDERED: Insulin Glargine 12 UNITS in Pre-Filled Syringe 1 EACH SC SCH (09:00)
[2018-10-10] MEDS ORDERED: Amlodipine 10 MG TAB PO SCH (09:00)
[2018-10-10] MEDS ORDERED: PROPOFOL 200 MG/20 ML VIAL ONE (10:00)
[2018-10-10] MEDS: Heparin 5,000 UNITS/ML VIAL SC SCH ×2 (10:57→15:00)
--- NOTE | 2018-10-10 10:57 | PRG ---
DATE OF SERVICE: 10/10/2018 SUBJECTIVE: This is a 37-year-old gentleman, being seen for end-stage renal disease. The patient denies any nausea, vomiting, or chest pain. OBJECTIVE: CONSTITUTIONAL: The patient is awake and alert. VITAL SIGNS: Afebrile, pulse 96, breathing 16, and blood pressure GENERAL APPEARANCE AND MENTAL STATUS: Fair. HEAD/NECK: Normocephalic. Atraumatic. EYES: EOMI. No deformity. EARS: Clear. No ulcers. NOSE: Intact. No lesions. MOUTH: Clear. No discharge. THROAT: Clear. No exudate. LUNGS: Clear. No crackles. CARDIAC: S1, S2. No rub. ABDOMEN: Benign. Bowel sounds positive. GENITALIA/RECTUM: Clifton absent. BACK/EXTREMITIES: Edema 0+. NEUROLOGICAL: Alert and motor intact. SKIN: LYMPHATICS: LABORATORY DATA: Labs show hemoglobin 8.9 and creatinine is 4.8. ASSESSMENT: 1. Stage 6 chronic kidney disease, stable. 2. Hypertension, stable. 3. Anemia, stable. 4. Hyperkalemia, resolved. 5. Dr. Isabel. Job ID: [id number]
[2018-10-10] MEDS: HumaLOG 300 UNITS/3 ML VIAL SC SCH ×3 (11:00→18:34)
[2018-10-10] MEDS: Sevelamer Carbonate 800 MG TAB PO SCH ×3 (11:04→18:33)
--- NOTE | 2018-10-10 12:54 | EKG ---
Test Reason : Blood Pressure : / mmHG Vent. Rate : 097 BPM Atrial Rate : 097 BPM P-R Int : 140 ms QRS Dur : 076 ms QT Int : 312 ms P-R-T Axes : 054 016 069 degrees QTc Int : 396 ms Normal sinus rhythm Confirmed by PAUL ROJAS ([id number]), clinical editor VINI DE LA CRUZ ([id number] on 10/10/2018 12:54:11 PM Referred By: Confirmed By:PAUL ROJAS
[2018-10-10] MEDS ORDERED: Levofloxacin 500 mg/D5W 100 ml Premix Bag ONE (14:01)
[2018-10-10] MEDS ORDERED: Bupivacaine HCl 0.5%/Epinephrine 1:200,000/PF 30 ml Vial ONE (15:18)
[2018-10-10] MEDS ORDERED: Heparin 10,000 UNITS/1 ML VIAL ONE (15:18)
[2018-10-10] MEDS ORDERED: Lidocaine 2% PF 5 ML VIAL ONE (15:18)
[2018-10-10] MEDS ORDERED: Sodium Chloride 0.9% 0 ML ONE (15:18)
[2018-10-10] MEDS ORDERED: Fentanyl 100 MCG/2 ML VIAL ONE (15:25)
[2018-10-10] MEDS ORDERED: Sodium Chloride 0.9% 10 ML ONE (15:26)
[2018-10-10] MEDS ORDERED: Dextrose 50% Abboject 50 ML SYRINGE ONE (15:50)
[2018-10-10] MEDS ORDERED: Ondansetron HCl/PF 4 MG/2 ML Vial IVP PRN (16:29)
--- NOTE | 2018-10-10 17:55 | RAD ---
SINGLE VIEW OF THE CHEST: 10/10/18 COMPARISON: 10/09/18 HISTORY: Central line placement. FINDINGS: Single view of the chest shows a normal sized cardiomediastinal silhouette. There is a dialysis cath eter with its tip in the superior vena cava. No pneumothorax is seen. There is no evidence of consoli dation, mass or pleural effusion. Stents are seen in the left subclavian region. IMPRESSION: 1. No evidence of acute cardiopulmonary disease. 2. Status post central line placement without evidence of complication. POS: [facility]
[2018-10-10 19:36] VITALS: BP 163/82; TEMP 96.1
--- NOTE | 2018-10-11 00:27 | OP ---
DATE OF PROCEDURE: 10/10/2018 PREOPERATIVE DIAGNOSES: End-stage renal disease, dislodged right IJ hemodialysis catheter, immature fistula cephalic vein, right arm. ANESTHESIA: TIVA, local of 0.5% Marcaine with epinephrine 30 mL mixed with 2%Xylocaine 10 mL. Fluoroscopy and ultrasound used to place a right IJ cuffed-tunneled hemodialysis catheters. DESCRIPTION OF PROCEDURE: The patient was taken to the operating room, where under intravenous sedation, his neck and chest were prepared with ChloraPrep and draped in routine fashion. Local anesthetic was infiltrated in the skin and subcutaneous tissue about the operative site. Using ultrasound guidance, the right internal jugular vein was cannulated with a trocar catheter and J-wire threaded. Trocar catheter removed. Skin was incised and enlarged sharply. A stab incision was made over the right chest. Using a tunneling device, pre-curved [employer] cuffed-tunneled hemodialysis catheter was tunneled between the two incisions, placed in the fabric cuff beneath the skin access site and catheter was secured with 2 sutures of 3-0 nylon. Dermabond, CHG and sterile dressing applied. Smaller and medium size dilators were placed over the J-wire in the internal jugular vein, dilator and Peel-Away sheath placed over the J-wire into the superior vena cava, and dilator and J-wire removed. Catheter was placed through the Peel-Away sheath. Peel-Away sheath was removed. Fluoroscopic images revealed good placement of a hemodialysis catheter in the superior vena cava. Platysma was approximated with 4-0 Monocryl and skin with subdermal 4-0 Monocryl, and [place] glue applied. Each port aspirated off blood, flushed with saline solution and heparinized saline solution of 1000 units of heparin per mL indicating volume of the port. Job ID: [id number]
[2018-10-11] MEDS ORDERED: Heparin 10,000 UNITS/ 10 ML VIAL ONE (10:59)
--- NOTE | 2018-10-12 07:28 | EKG ---
Test Reason : Blood Pressure : / mmHG Vent. Rate : 100 BPM Atrial Rate : 100 BPM P-R Int : 142 ms QRS Dur : 066 ms QT Int : 326 ms P-R-T Axes : 077 041 066 degrees QTc Int : 420 ms Normal sinus rhythm Possible Left atrial enlargement Low voltage QRS Septal infarct (cited on or before 10-OCT-2018) Abnormal ECG When compared with ECG of 09-OCT-2018 15:40, No significant change was found Confirmed by HILARY TORRES ([id number]) on 10/12/2018 7:27:34 AM Referred By: SWEETIE Confirmed By:HILARY TORRES
== END 2018-10-10 20:33 | disposition home or self-care (01) ==
LOC: ERS 15:33 → 2SW 20:51 → 2NO 23:22
PROVIDERS: ADMIT Student in an Organized Health Care Education/Training Program; ATTEND Student in an Organized Health Care Education/Training Program
PROC: 0JH63XZ Insertion of Tunneled Vascular Access Device into Chest Subcutaneous Tissue and Fascia, Percutaneous Approach (ICD-10-PCS; principal; 2018-10-10)
DX: T82.42XA Displacement of vascular dialysis catheter, initial encounter (principal); I13.2 Hypertensive heart and chronic kidney disease with heart failure and with stage 5 chronic kidney disease, or end stage renal disease; E10.22 Type 1 diabetes mellitus with diabetic chronic kidney disease; N18.6 End stage renal disease; I50.30 Unspecified diastolic (congestive) heart failure; D63.1 Anemia in chronic kidney disease; F32.9 Major depressive disorder, single episode, unspecified; E78.5 Hyperlipidemia, unspecified; F17.210 Nicotine dependence, cigarettes, uncomplicated; F41.9 Anxiety disorder, unspecified; F19.10 Other psychoactive substance abuse, uncomplicated; E87.5 Hyperkalemia; Z86.73 Personal history of transient ischemic attack (TIA), and cerebral infarction without residual deficits; Z79.899 Other long term (current) drug therapy; Z88.0 Allergy status to penicillin; Z91.14 Patient's other noncompliance with medication regimen; Z91.15 Patient's noncompliance with renal dialysis; Z99.2 Dependence on renal dialysis; Z98.890 Other specified postprocedural states
CPT/HCPCS: 36556; 36558; 71045 ×2; 76001; 80048; 80053; 82962; 84484; 85025 ×2; 86780; 87340; 93005 ×2; 97139; 99285; C1752 ×2; C1769; G0378 ×2; J2997; 36415; 36416; 93010; A4216; J0670; J1644; J1956; J2001; J2704; J3010

== ENCOUNTER 2018-10-22 03:24 | Observation (INO) | payer MEDICARE, MEDICAID ==
[2018-10-22 05:07] LABS: #Basophils 0.1 thou/uL (0.0-0.2); #Eosinphils 0.2 thou/uL (0.0-0.7); #Lymphocytes 1.3 thou/uL (1.20-3.40); #Monocytes 0.7 thou/uL (0.11-0.59); #Neutrophils 4.2 thou/uL (1.40-6.50); %Basophils 1.1 % (0.0-1.0); %Lymphocytes 19.9 % (21.0-51.0); Hemoglobin 9.8 g/dL (14.0-18.0); Mean Corpuscular HGB CONC 31.5 g/dL (32.0-36.0); Mean Corpuscular Hemoglobin 29.2 pg (27.0-31.0); Mean Corpuscular Volume 92.8 fL (78.0-98.0); Mean Platelet Volume 9.8 fL (7.4-10.4); Platelet Count 206 thou/uL (130-400); RBC Distribution Width 16.6 % (11.5-14.5); Red Blood Cell (RBC) Count 3.34 mill/uL (4.70-6.10); White Blood Cell (WBC) Count 6.4 thou/uL (4.8-10.8)
[2018-10-22 05:30] LABS: ALT (SGPT) 10 U/L (8-55); AST (SGOT) 12 U/L (5-34); Albumin 3.1 g/dL (3.5-5.0); Alkaline Phosphatase 158 U/L (40-150); Anion Gap 19 mmol/L (10-20); BUN (Urea Nitrogen) 89 mg/dL (8.9-20.6); Bilirubin, Total 0.3 mg/dL (0.2-1.2); Calc. Creatinine Clearance 0 mL/min (70-130); Calcium 8.8 mg/dL (7.8-10.44); Carbon Dioxide 21 mmol/L (22-29); Chloride 101 mmol/L (98-107); Estimated GFR-MDRD 8; Globulin 3.9 g/dL (2.4-3.5); Glucose 449 mg/dL (70-105); Lipase 41 U/L (8-78); Sodium 132 mmol/L (136-145)
[2018-10-22 05:34] LABS: Potassium 8.6 mmol/L (3.5-5.1)
[2018-10-22] MEDS ORDERED: Insulin Regular 300 UNITS/3 ML VIAL ONE (06:11)
[2018-10-22] MEDS ORDERED: Dextrose 50% Abboject 50 ML SYRINGE ONE (06:11)
[2018-10-22] MEDS ORDERED: Calcium Chloride 1 GM/10 ML Abboject SYRINGE ONE (06:11)
[2018-10-22] MEDS ORDERED: Albuterol Sulfate 2.5 mg/0.5 ml Neb ONE ×2 (06:14)
--- NOTE | 2018-10-22 06:14 | PDOC.FPRHP ---
- History of Present Illness Chief Complaint: Not feeling well History of Present Illness: 37 yo M with frequent trips to the ER with ESRD on MWF dialysis. Patient reports "not feeling well" for the past couple days, with chills, headache, but no fever. Patient missed dialysis on Monday due to his chronic diarrhea. Patient states he also fell two days ago while trying to go to the bathroom and lost his balance, reports he did not hit his head or hurt himself. He reports his house is always cold, and he was outside with the ambulance for a few minutes today. On admission to ED, K was 8.6. He received amp d50 and 10 units insulin, and calcium chloride. His rectal temperature was 96F. Also received albuterol. - Allergies/Adverse Reactions Allergies Allergy/AdvReac Type Severity Reaction Status Date / Time Penicillins Allergy Unknown Verified 09/17/18 17:04 - Home Medications Medication Instructions Recorded Confirmed Type Sevelamer Carbonate [Renvela] 3 tab PO TID-WM 09/08/15 10/10/18 History Amlodipine Besylate [amLODIPine 10 mg PO DAILY 09/02/16 10/10/18 History Besylate] Cinacalcet HCl [Sensipar] 60 mg PO DAILY 09/02/16 10/10/18 History hydrALAZINE [Apresoline] 25 mg PO TID 09/02/16 10/10/18 History Sertraline HCl 25 mg PO DAILY 03/03/17 10/10/18 History HumaLOG [HumaLOG Vial] 3 units SC TID-WM vial 06/04/18 10/10/18 Rx Insulin Glargine [Lantus Vial] 12 units SC QAM 30 Days #1 vial 06/04/18 Rx levETIRAcetam [Keppra] 500 mg PO BID #60 tab 06/04/18 10/10/18 Rx HumaLOG [HumaLOG Vial] 0 unit SC TID-WM PRN 09/17/18 10/10/18 History Acetaminophen [Tylenol Regular 650 mg PO Q4H PRN tab 09/27/18 10/10/18 Rx Strength] Vancomycin HCl 1 gm IVPB WILLCALL bag 09/27/18 10/10/18 Rx Vancomycin HCl 250 mg IVPB WILLCALL vial 09/27/18 10/10/18 Rx Vancomycin HCl 750 mg IVPB WILLCALL vial 09/27/18 10/10/18 Rx - History PMHx: CHF, DM1, ESRD on MWF dialysis, right BKA, CVAx2 (2 years ago), HLD, HTN, depression PSHx: Rt BKA, L fistula (removed), Right fistula recently placed, Right vasc cath (subclavian) FHx: noncontributory Social: 1/2 pack cig for 20 years, marijuana (last used today) and PCP use ( last used 1 wk ago), drinks alcohol 1/month - Review of Systems General: reports: fever/chills, fatigue, other (Not feeling well) Eyes: denies: eye pain, vision changes ENT: denies: nasal congestion, rhinorrhea Respiratory: denies: cough, congestion, shortness of breath Cardiovascular: denies: chest pain, palpitation Gastrointestinal: reports: diarrhea. denies: nausea, vomiting, constipation, abdominal pain, GI bleeding Genitourinary: denies: dysuria Skin: denies: rashes, lesions Musculoskeletal: denies: pain, tenderness, stiffness Neurological: denies: numbness, weakness Psychological: reports: anxiety, depression - Vital signs BP: [152/93] HR: [86] RR: [18] Tmax: [96] Pox: [97]% on [RA] Wt: [81] - Physical Exam Constitutional: NAD -Constitutional: appears sleepy, keeps eyes closed during questioning HEENT: normocephalic and atraumatic, PERRLA, EOMI, MMM, oropharynx clear Neck: supple, trachea midline, no LAD Heart: RRR, normal S1/S2, no murmurs/rubs/gallops, pulses present, other (3+ pitting edema in left leg) Lungs: CTAB, no respiratory distress, good air movement, no wheezing Abdomen: soft, bowel sounds present, other (mildly tender to palpation) Musculoskeletal: other (Missing right leg, BKA) Skin: good turgor, capillary refill <2 seconds Heme/Lymphatic: no unusual bruising or bleeding, no purpura Psychiatric: normal mood and affect, intact recent and remote memory FMR H&P: Results - Labs Result Diagrams: 10/22/18 05:03 10/22/18 05:03 Lab results: WBC 6.4 thou/uL (4.8-10.8) 10/22/18 05:03 Hgb 9.8 g/dL (14.0-18.0) L 10/22/18 05:03 Hct 31.0 % (42.0-52.0) L 10/22/18 05:03 MCV 92.8 fL (78.0-98.0) 10/22/18 05:03 Plt Count 206 thou/uL (130-400) 10/22/18 05:03 Neutrophils % 65.0 % (42.0-75.0) 10/22/18 05:03 Sodium 132 mmol/L (136-145) L 10/22/18 05:03 Potassium 8.6 mmol/L (3.5-5.1) H* 10/22/18 05:03 Chloride 101 mmol/L (98-107) 10/22/18 05:03 Carbon Dioxide 21 mmol/L (22-29) L 10/22/18 05:03 BUN 89 mg/dL (8.9-20.6) H 10/22/18 05:03 Creatinine 9.31 mg/dL (0.7-1.3) H 10/22/18 05:03 Glucose 449 mg/dL (70-105) H 10/22/18 05:03 Lactic Acid 1.2 mmol/L (0.5-2.2) 10/22/18 05:03 Calcium 8.8 mg/dL (7.8-10.44) 10/22/18 05:03 Total Bilirubin 0.3 mg/dL (0.2-1.2) 10/22/18 05:03 AST 12 U/L (5-34) 10/22/18 05:03 ALT 10 U/L (8-55) 10/22/18 05:03 Alkaline Phosphatase 158 U/L (40-150) H 10/22/18 05:03 Serum Total Protein 7.0 g/dL (6.0-8.3) 10/22/18 05:03 Albumin 3.1 g/dL (3.5-5.0) L 10/22/18 05:03 Lipase 41 U/L (8-78) 10/22/18 05:03 - EKG Interpretation EKG: peaked t waves sinus rhythm with 1st degree AV block Left axis deviation FMR H&P: A/P - Problem List (1) Hyperkalemia Current Visit: No Status: Acute Priority: High Code(s): E87.5 - HYPERKALEMIA (2) Hypothermia Current Visit: Yes Status: Acute Code(s): T68.XXXA - HYPOTHERMIA, INITIAL ENCOUNTER (3) Diarrhea Current Visit: No Status: Chronic Code(s): R19.7 - DIARRHEA, UNSPECIFIED (4) Seizure Current Visit: No Status: Chronic Code(s): R56.9 - UNSPECIFIED CONVULSIONS (5) Tobacco abuse Current Visit: No Status: Chronic Code(s): Z72.0 - TOBACCO USE (6) Anemia of renal disease Current Visit: No Status: Chronic Code(s): D63.1 - ANEMIA IN CHRONIC KIDNEY DISEASE (7) Depression Current Visit: No Status: Chronic Priority: Low Code(s): F32.9 - MAJOR DEPRESSIVE DISORDER, SINGLE EPISODE, UNSPECIFIED Qualifiers: Depression Type: major depressive disorder Active/Remission status: currently active Psychotic features: without psychotic features (8) Diabetes mellitus type 1 with complications Current Visit: No Status: Chronic Priority: High Code(s): E10.8 - TYPE 1 DIABETES MELLITUS WITH UNSPECIFIED COMPLICATIONS (9) Diastolic CHF Current Visit: No Status: Chronic Code(s): I50.30 - UNSPECIFIED DIASTOLIC ( CONGESTIVE) HEART FAILURE Qualifiers: (10) ESRD (end stage renal disease) on dialysis Current Visit: No Status: Chronic Code(s): N18.6 - END STAGE RENAL DISEASE; Z99.2 - DEPENDENCE ON RENAL DIALYSIS (11) HLD (hyperlipidemia) Current Visit: No Status: Chronic Code(s): E78.5 - HYPERLIPIDEMIA, UNSPECIFIED (12) Hypertension Current Visit: No Status: Chronic Code(s): I10 - ESSENTIAL (PRIMARY) HYPERTENSION Qualifiers: Hypertension type: essential hypertension Qualified Code(s): I10 - Essential (primary) hypertension (13) Drug abuse, phencyclidine Current Visit: Yes Status: Chronic Code(s): F16.10 - HALLUCINOGEN ABUSE, UNCOMPLICATED (14) Marijuana abuse, continuous Current Visit: Yes Status: Chronic Code(s): F12.10 - CANNABIS ABUSE, UNCOMPLICATED (15) First degree heart block by electrocardiogram Current Visit: Yes Status: Acute Code(s): I44.0 - ATRIOVENTRICULAR BLOCK, FIRST DEGREE - Plan 37 yo M with ESRD who missed dialysis here for hyperkalemia and hypothermia #Hyperkalemia -K of 8.6 -EKG showed peaked t waves, 1st degree heart block -Receiving dialysis -Dr. Gonzalez consulted from ED -Repeat BMP @ 1400 -After dialysis, admit to tele obs #Hypothermia -Temp of 96F on admission, possibly 2/2 to exposure -CXR- pending -Procal pending -Did not receive vanc and zosyn, consider if procal high -Does not make urine -Continue to monitor temperature -Does not meet sepsis criteria at this time #ESRD on MWF dialysis -Dialysis today, patient missed Monday dialysis 2/2 diarrhea -Hyperkalemic, EKG shows peaked T waves -Dr. Gonzalez, nephrology consulted #CHF #DM1 -15 units insulin QAM -SSI -Humalog TID WM #Chronic Diarrhea -Last few visits antigen positive, toxin neg -Contact precautions #Hyponatremia -Na 132 -Continue to monitor, repeat BMP @ 1400 after dialysis #HLD #HTN -Home med restarted #Depression -Home meds restarted #Seizures -Home keppra #Anemia of chronic disease -Hgb 8.6 #Multi drug abuse -Marijuana, PCP, tobacco, occasional alcohol -aware DVT PPX: heparin Code Status: full code Diet: CC, fluid restrict to 1800ml/day Dispo: possibly home tomorrow after dialysis, pending clinical picture FMR H&P: Upper Level - Pertinent history 37 yo AAM PMH ESRD on MWF HD. Presents with CC of fall 2 days ago and generalized weakness. Missed HD on Monday due to diarrhea. Denies SOB/CP. ER course: Labs, EKG CXR, Vanc, Cefepime, duoneb, calcium chlroide, IV insulin, D50, nephro consulted. - Pertinent findings Vitals: Temp 96F, BP 152/93, otherwise WNL GEN: NAD A&Ox4. CV: RRR, no murmur Pulm: CTA-B Extremities: right BKA, 2+pitting edema to knee. Pertinent labs: potassium 8.6, glucose 449, CXR: possible left sided infiltrate vs pulmonary edema. EKG: rate 85, NSR, mild peaked T-waves in anterior leads. - Plan Date/Time: 10/22/18 0610 I, Doron Fisher MD, have evaluated this patient and agree with findings/plan as outlined by recruitment internship resident. Pertinent changes/additions are listed here. - Hyperkalemia 2/2 HD no-compliance- emergent HD scheduled by nephro. given temporizing measures in ER. - ESRD- management per nephro - Hypothermia- infection vs autonomic dysfunction. Warmed in ER. Receive Vanc and Cefepime, Will check procalcitonin and proceed with abx from there. - Non-compliance - DM2- home meds, SSI, hypoglycemic protocol - PPx: SCD - Diet: Renal - CODE: FULL - DISPO: Obs, medical, <2 midnights. Addendum - Attending - Attending Attestation Date/Time: 10/22/18 1309 I personally evaluated the patient and discussed the management with Dr. Fisher. I agree with the History, Examination, Assessment and Plan documented above with any addition or exceptions noted below. The patient is admitted with volume overload and hyperkalemia due to missing dialysis on Monday. Pt was seen while getting dialysis and stated he is already feeling better. Will discuss with nephrology and pt could possible go home later today. Counseled on substance abuse cessation.
[2018-10-22] MEDS ORDERED: Cefepime 2 GM VIAL ONE (06:40)
[2018-10-22] MEDS ORDERED: Acetaminophen 650 MG Suppository PR PRN (07:56)
[2018-10-22] MEDS ORDERED: Acetaminophen 325 MG TAB PO PRN (07:56)
[2018-10-22] MEDS ORDERED: Dextrose 5% in Water 1,000 ML IV PRN (07:56)
[2018-10-22] MEDS ORDERED: Dextrose 50% Abboject 50 ML SYRINGE SLOW IVP PRN (07:56)
[2018-10-22] MEDS ORDERED: Sevelamer Carbonate 800 MG TAB PO SCH (08:00)
--- NOTE | 2018-10-22 10:05 | CON ---
DATE OF CONSULTATION: NEPHROLOGY CONSULTATION REASON FOR CONSULTATION: Hyperkalemia. HISTORY OF PRESENT ILLNESS: This is a very pleasant 37-year-old male, who misses dialysis frequently, presented to the hospital with potassium of 8.2. The patient denies any complaints like nausea, vomiting, or chest pain. PAST MEDICAL HISTORY: Significant for hypertension, anemia, noncompliance, below-knee amputation, history of secondary hyperparathyroidism, history of multiple episodes of sepsis, pneumonia, drug use, and congestive heart failure. SOCIAL HISTORY: History of drug use. MEDICATIONS: Home medications list, reviewed. Hospital medications list, reviewed. ALLERGIES: REVIEWED. FAMILY HISTORY: Negative for ESRD. REVIEW OF SYSTEMS: A 15-point review of systems was performed and was negative except for positives noted above. GENERAL: HEAD: NECK: No swelling or lumps. NOSE: No epistaxis or discharge. EYES: No diplopia or pain. 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 NEUROPSYCHIATRIC SYSTEMS: No suicidal ideation. No ideation. SKIN: Denies any rash or ulcer. CONSTITUTIONAL: No fever or chills. PHYSICAL EXAMINATION: CONSTITUTIONAL: The patient is awake, alert, in no acute distress. VITAL SIGNS: Afebrile, pulse 75, breathing 16, blood pressure 130/70. GENERAL APPEARANCE AND MENTAL STATUS: Fair. HEAD/NECK: Normocephalic. Atraumatic. EYES: EOMI. No deformity. EARS: Clear. No ulcers. NOSE: Intact. No lesions. MOUTH: Clear. No discharge. THROAT: Clear. No exudate. LUNGS: Clear. No crackles. CARDIAC: S1, S2. No rub. ABDOMEN: Benign. Bowel sounds positive. GENITALIA/RECTUM: [place] absent. BACK/EXTREMITIES: Edema 0+. NEUROLOGICAL: Alert and motor intact. SKIN: LYMPHATICS: LABORATORY DATA: Labs show hemoglobin 9.8. Potassium 8.6. ASSESSMENT AND PLAN: 1. Stage 6 chronic kidney disease. Plan dialysis. 2. Hyperkalemia. Plan dialysis. 3. Medications based on GFR, appropriate. Job ID: [id number]
--- NOTE | 2018-10-22 10:26 | RAD ---
CHEST 1 VIEW: HISTORY: Nausea. Vomiting. The patient missed dialysis on Monday. COMPARISON: 10/10/2018. FINDINGS: Redemonstration of multiple stents projecting over the left axilla and left hemithorax. Stable right -sided HemoSplit dialysis catheter. Heart size is normal. Pulmonary vessels are prominent. Patchy interstitial and alveolar opacities suggesting edema. No pleural effusion or pneumothorax. IMPRESSION: Volume overload. Edema. POS: [facility]
[2018-10-22 13:06] VITALS: BMI 22.3
[2018-10-22] MEDS: Sevelamer Carbonate 800 MG TAB PO SCH ×2 (13:09→17:44)
[2018-10-22] MEDS: Amlodipine 10 MG TAB PO SCH (13:10)
[2018-10-22] MEDS: Cinacalcet HCl 30 MG TAB PO SCH (13:10)
[2018-10-22] MEDS: hydrALAZINE 25 MG TAB PO SCH ×2 (13:10→17:44)
[2018-10-22] MEDS: levETIRAcetam 500 MG TAB PO SCH (13:10)
[2018-10-22] MEDS: Insulin Glargine 15 UNITS in Pre-Filled Syringe 1 EACH SC SCH (13:11)
[2018-10-22] MEDS: Heparin 5,000 UNITS/ML VIAL SC SCH ×2 (13:11→17:44)
[2018-10-22] MEDS: Nicotine 14 MG PATCH TD SCH (13:19)
[2018-10-22 15:12] LABS: Anion Gap 18 mmol/L (10-20); BUN (Urea Nitrogen) 29 mg/dL (8.9-20.6); Calc. Creatinine Clearance 26 mL/min (70-130); Carbon Dioxide 23 mmol/L (22-29); Chloride 103 mmol/L (98-107); Estimated GFR-MDRD 21; Glucose 104 mg/dL (70-105); Potassium 5.8 mmol/L (3.5-5.1); Sodium 138 mmol/L (136-145)
[2018-10-22 17:38] LABS: Anion Gap 17 mmol/L (10-20); BUN (Urea Nitrogen) 27 mg/dL (8.9-20.6); Calc. Creatinine Clearance 24 mL/min (70-130); Calcium 8.6 mg/dL (7.8-10.44); Carbon Dioxide 25 mmol/L (22-29); Chloride 100 mmol/L (98-107); Estimated GFR-MDRD 19; Glucose 141 mg/dL (70-105); Potassium 5.7 mmol/L (3.5-5.1); Sodium 136 mmol/L (136-145)
[2018-10-22 19:15] LABS: Actual Bicarbonate (HCO3a) 30.7 mEq/L (22-28); Analyzer IN Cardio OR; CO2 Tension 50.3 mmHg (35.0-45.0); Calcium, Ionized 1.06 mmol/L (1.12-1.30); Carboxyhemoglobin (COHb) 0.2 gm% (0.0-3.0); Hemoglobin (Hb) 11.3 g/dL (14.0-18.0); Potassium - ABG Lab 5.86 mmol/L (3.70-5.30)
[2018-10-22 19:16] LABS: O2 Tension (PaO2) 47.3 mmHg (80.0-100.0)
[2018-10-22 19:17] LABS: ALV-art Gradient 39.555 (0-20); Puncture Site LRA
[2018-10-23] MEDS: levETIRAcetam 500 MG TAB PO SCH ×3 (00:10→20:30)
[2018-10-23] MEDS: hydrALAZINE 25 MG TAB PO SCH ×4 (00:10→20:30)
[2018-10-23] MEDS: Heparin 5,000 UNITS/ML VIAL SC SCH ×4 (00:10→20:32)
[2018-10-23] MEDS: HumaLOG 300 UNITS/3 ML VIAL SC PRN (06:20)
--- NOTE | 2018-10-23 08:21 | PDOC.FM ---
- Subjective Subjective: This morning patient states he is feeling well. Tolerated supper and breakfast well. Denies n/v. Patient states he had a firm BM yesterday, which he has not had in sometime. Patient denies any pain and states he feels ready to go home. - Objective Vital Signs & Weight: Vital Signs (12 hours) Temp Pulse Resp BP BP Pulse Ox 10/23/18 07:18 98.0 F 102 H 20 170/85 H 100 10/23/18 03:00 97.5 F L 100 15 114/53 L 97 10/23/18 00:10 97 127/57 L 10/22/18 23:58 98.0 F 98 14 127/57 L 96 Weight Weight 71.532 kg I&O: 10/22/18 10/23/18 10/24/18 06:59 06:59 06:59 Intake Total 240 Output Total 0 Balance 240 Result Diagrams: 10/22/18 05:03 10/23/18 09:28 Phys Exam - Physical Examination Constitutional: NAD HEENT: PERRLA, moist MMs Neck: no nodes, full ROM Respiratory: no wheezing, clear to auscultation bilateral Cardiovascular: RRR, no significant murmur Gastrointestinal: soft, non-tender, no distention, positive bowel sounds Musculoskeletal: no edema, pulses present Right BKA Neurological: non-focal, moves all 4 limbs Psychiatric: normal affect, A&O x 3 Skin: cap refill <2 seconds Dx/Plan (1) Drug abuse, phencyclidine Code(s): F16.10 - HALLUCINOGEN ABUSE, UNCOMPLICATED Status: Chronic (2) Hyperkalemia Code(s): E87.5 - HYPERKALEMIA Status: Acute (3) Normocytic anemia, not due to blood loss Code(s): D64.9 - ANEMIA, UNSPECIFIED Status: Acute (4) Diabetes mellitus type 1 Code(s): E10.9 - TYPE 1 DIABETES MELLITUS WITHOUT COMPLICATIONS Status: Chronic (5) Diarrhea Code(s): R19.7 - DIARRHEA, UNSPECIFIED Status: Chronic (6) Diastolic CHF Code(s): I50.30 - UNSPECIFIED DIASTOLIC (CONGESTIVE) HEART FAILURE Status: Chronic Qualifiers: (7) ESRD (end stage renal disease) on dialysis Code(s): N18.6 - END STAGE RENAL DISEASE; Z99.2 - DEPENDENCE ON RENAL DIALYSIS Status: Chronic (8) Hypertension Code(s): I10 - ESSENTIAL (PRIMARY) HYPERTENSION Status: Chronic Qualifiers: Hypertension type: essential hypertension Qualified Code(s): I10 - Essential (primary) hypertension (9) Polysubstance abuse Code(s): F19.10 - OTHER PSYCHOACTIVE SUBSTANCE ABUSE, UNCOMPLICATED Status: Chronic - Plan Plan: 37 yo M with ESRD who missed dialysis here for hyperkalemia #Hyperkalemia -K of 8.6-> dialysis-> 5.8 -> 2nd round of dialysis-> pending AM K - kayexelate #ESRD on MWF dialysis -Dialysis today, patient missed Monday dialysis 2/2 diarrhea -Dr. Gonzalez, nephrology consulted #CHF -home meds #DM1 -15 units insulin QAM -SSI -Humalog TID WM #Chronic Diarrhea -Last few visits antigen positive, toxin neg -ordered TTG, and discussed trial of gluten avoidance with patient #Hyponatremia #HLD - home meds #HTN -Home med restarted #Depression -Home meds restarted #Seizures -Home keppra #Anemia of chronic disease -Hgb 8.6 #Multi drug abuse -Marijuana, PCP, tobacco, occasional alcohol DVT PPX: heparin Code Status: full code Diet: CC, fluid restrict to 1800ml/day Dispo: home today pending potassium Addendum - Attending - Attending Attestation Date/Time: 10/23/18 1051 I personally evaluated the patient and discussed the management with Dr. Hardwick. I agree with the History, Examination, Assessment and Plan documented above with any addition or exceptions noted below. Pt is feeling better. Potassium is back up this morning. Will discuss with nephrology regarding possible dialysis.
[2018-10-23] MEDS: Sevelamer Carbonate 800 MG TAB PO SCH ×3 (08:35→18:42)
[2018-10-23] MEDS: Cinacalcet HCl 30 MG TAB PO SCH (08:35)
[2018-10-23] MEDS: Amlodipine 10 MG TAB PO SCH (08:35)
[2018-10-23] MEDS: Insulin Glargine 15 UNITS in Pre-Filled Syringe 1 EACH SC SCH (08:36)
[2018-10-23 10:28] LABS: Anion Gap 18 mmol/L (10-20); BUN (Urea Nitrogen) 25 mg/dL (8.9-20.6); Calc. Creatinine Clearance 26 mL/min (70-130); Calcium 8.7 mg/dL (7.8-10.44); Carbon Dioxide 23 mmol/L (22-29); Chloride 108 mmol/L (98-107); Estimated GFR-MDRD 21; Glucose 112 mg/dL (70-105); Potassium 6.3 mmol/L (3.5-5.1); Sodium 143 mmol/L (136-145)
--- NOTE | 2018-10-23 11:24 | PDOC.EVN ---
Event Note - Event Note Event Note: patient to have another round of dialysis today, re-check K fater dialysis
[2018-10-23 11:32] LABS: Potassium 5.7 mmol/L (3.5-5.1)
[2018-10-23] MEDS: Nicotine 14 MG PATCH TD SCH (11:54)
--- NOTE | 2018-10-23 12:41 | PRG ---
DATE OF SERVICE: 10/23/2018 SUBJECTIVE: A 37-year-old gentleman, being seen for end-stage renal disease. The patient has had recurrent hyperkalemia, is on high potassium diet after education. OBJECTIVE: CONSTITUTIONAL: The patient is awake and alert. VITAL SIGNS: Afebrile, pulse 77, breathing 16, and blood pressure 121/67. GENERAL APPEARANCE AND MENTAL STATUS: Fair. HEAD/NECK: Normocephalic. Atraumatic. EYES: EOMI. No deformity. EARS: Clear. No ulcers. NOSE: Intact. No lesions. MOUTH: Clear. No discharge. THROAT: Clear. No exudate. LUNGS: Clear. No crackles. CARDIAC: S1, S2. No rub. ABDOMEN: Benign. Bowel sounds positive. GENITALIA/RECTUM: [place] absent. BACK/EXTREMITIES: Edema 0+. NEUROLOGICAL: Alert and motor intact. SKIN: LYMPHATICS: LABORATORY DATA: Labs show hemoglobin 9.8. Potassium 5.8. ASSESSMENT AND PLAN: 1. Stage 6 chronic kidney disease, plan dialysis. 2. Hypertension, stable. 3. Anemia, stable. 4. Medication based on GFR as appropriate. Job ID: [id number]
[2018-10-23] MEDS ORDERED: Heparin 10,000 UNITS/ 10 ML VIAL ONE (15:00)
[2018-10-24 05:32] LABS: Anion Gap 13 mmol/L (10-20); BUN (Urea Nitrogen) 11 mg/dL (8.9-20.6); Calc. Creatinine Clearance 35 mL/min (70-130); Calcium 8.2 mg/dL (7.8-10.44); Carbon Dioxide 30 mmol/L (22-29); Chloride 98 mmol/L (98-107); Estimated GFR-MDRD 32; Glucose 380 mg/dL (70-105); Potassium 4.5 mmol/L (3.5-5.1); Sodium 136 mmol/L (136-145)
[2018-10-24] MEDS: HumaLOG 300 UNITS/3 ML VIAL SC PRN ×2 (07:27→11:20)
[2018-10-24] MEDS: Insulin Glargine 15 UNITS in Pre-Filled Syringe 1 EACH SC SCH (08:29)
[2018-10-24] MEDS: Heparin 5,000 UNITS/ML VIAL SC SCH (08:29)
[2018-10-24] MEDS: Sevelamer Carbonate 800 MG TAB PO SCH ×2 (08:29→12:31)
--- NOTE | 2018-10-24 08:48 | PDOC.FM ---
- Subjective Subjective: This morning patient states he is feeling well overall. Denies diarrhea overnight. Denies fevers, chills, sweat, or N/V. Patients states that he understands he needs to avoid high potassium content foods like bananas or OJ. States he is ok w/ dialysis today if desired by Dr. Gonzalez. - Objective Vital Signs & Weight: Vital Signs (12 hours) Temp Pulse Resp BP Pulse Ox 10/24/18 07:19 98 F 96 16 129/70 100 10/24/18 03:10 98.7 F 105 H 16 129/64 100 10/23/18 23:18 97.9 F 104 H 12 128/62 100 Weight Weight 67.676 kg I&O: 10/23/18 10/24/18 10/25/18 06:59 06:59 06:59 Intake Total 240 960 Output Total 0 4000 Balance 240 -3040 Result Diagrams: 10/22/18 05:03 10/24/18 04:39 Phys Exam - Physical Examination Constitutional: NAD HEENT: PERRLA, moist MMs Neck: no nodes, full ROM Respiratory: no wheezing, no rales, clear to auscultation bilateral Cardiovascular: RRR, no significant murmur Gastrointestinal: soft, non-tender, no distention, positive bowel sounds right bka Neurological: non-focal, moves all 4 limbs Psychiatric: normal affect, A&O x 3 Skin: no rash, cap refill <2 seconds Dx/Plan (1) Drug abuse, phencyclidine Code(s): F16.10 - HALLUCINOGEN ABUSE, UNCOMPLICATED Status: Chronic (2) Hyperkalemia Code(s): E87.5 - HYPERKALEMIA Status: Acute (3) Normocytic anemia, not due to blood loss Code(s): D64.9 - ANEMIA, UNSPECIFIED Status: Acute (4) Diabetes mellitus type 1 Code(s): E10.9 - TYPE 1 DIABETES MELLITUS WITHOUT COMPLICATIONS Status: Chronic (5) Diarrhea Code(s): R19.7 - DIARRHEA, UNSPECIFIED Status: Chronic (6) Diastolic CHF Code(s): I50.30 - UNSPECIFIED DIASTOLIC (CONGESTIVE) HEART FAILURE Status: Chronic Qualifiers: (7) ESRD (end stage renal disease) on dialysis Code(s): N18.6 - END STAGE RENAL DISEASE; Z99.2 - DEPENDENCE ON RENAL DIALYSIS Status: Chronic (8) Hypertension Code(s): I10 - ESSENTIAL (PRIMARY) HYPERTENSION Status: Chronic Qualifiers: Hypertension type: essential hypertension Qualified Code(s): I10 - Essential (primary) hypertension (9) Polysubstance abuse Code(s): F19.10 - OTHER PSYCHOACTIVE SUBSTANCE ABUSE, UNCOMPLICATED Status: Chronic - Plan Plan: 37 yo M with ESRD who missed dialysis here for hyperkalemia #Hyperkalemia -K of 8.6-> dialysis-> 5.8 -> 2nd round of dialysis-> 6.3 -> 3rd dialysis -> 4.5 this AM - kayexelate #ESRD on MWF dialysis -Dialysis today, then d/c -Dr. Gonzalez, nephrology consulted, appreciate assistance #CHF -home meds #DM1 -15 units insulin QAM -SSI -Humalog TID WM #Chronic Diarrhea -Last few visits antigen positive, toxin neg -ordered TTG, still pending, discussed trial of gluten avoidance with patient - patient will try avoiding gluten for a few weeks and f/u in clinic #Hyponatremia-resolved #HLD - home meds #HTN -Home med restarted #Depression -Home meds restarted #Seizures -Home keppra #Anemia of chronic disease -Hgb 8.6 #Multi drug abuse -Marijuana, PCP, tobacco, occasional alcohol DVT PPX: heparin Code Status: full code Diet: CC, fluid restrict to 1800ml/day Dispo: home today after dialysis Addendum - Attending - Attending Attestation Date/Time: 10/24/18 1069 I personally evaluated the patient and discussed the management with Dr. Hardwick. I agree with the History, Examination, Assessment and Plan documented above with any addition or exceptions noted below. Pt is doing well. Getting dialysis and will discharge.
[2018-10-24] MEDS: Nicotine 14 MG PATCH TD SCH (11:11)
--- NOTE | 2018-10-24 11:25 | PRG ---
DATE OF SERVICE: 10/24/2018 SUBJECTIVE: A 37-year-old gentleman, being seen for end-stage renal disease. The patient denies any nausea, vomiting, or chest pain. OBJECTIVE: GENERAL: The patient is awake and alert. VITAL SIGNS: Afebrile, pulse 96, breathing 16, blood pressure 129/70. GENERAL APPEARANCE AND MENTAL STATUS: Fair. HEAD/NECK: Normocephalic. Atraumatic. EYES: EOMI. No deformity. EARS: Clear. No ulcers. NOSE: Intact. No lesions. MOUTH: Clear. No discharge. THROAT: Clear. No exudate. LUNGS: Clear. No crackles. CARDIAC: S1, S2. No rub. ABDOMEN: Benign. Bowel sounds positive. GENITALIA/RECTUM: [place] absent. BACK/EXTREMITIES: Edema 0+. NEUROLOGICAL: Alert and motor intact. SKIN: LYMPHATICS: LABORATORY DATA: Hemoglobin 9.8. Potassium ASSESSMENT AND PLAN: 1. Stage 6 chronic kidney disease. Continue hemodialysis. 2. Hypertension, stable. 3. Anemia, stable. 4. Medications based on GFR appropriate. Job ID: [id number]
[2018-10-24] MEDS ORDERED: Heparin 10,000 UNITS/ 10 ML VIAL ONE (12:00)
[2018-10-24 12:07] VITALS: BP 150/65; TEMP 98.5
[2018-10-24] MEDS: Cinacalcet HCl 30 MG TAB PO SCH (12:31)
[2018-10-24] MEDS: Amlodipine 10 MG TAB PO SCH (12:31)
[2018-10-24] MEDS: levETIRAcetam 500 MG TAB PO SCH (12:31)
[2018-10-24] MEDS: hydrALAZINE 25 MG TAB PO SCH (12:32)
[2018-10-24 15:15] LABS: EliA Celiac New Method **** NEW METHOD ****; t-Transglutaminase (tTG) IgA 4.1 EliAU/mL (<7 Negative); t-Transglutaminase (tTG) IgG Less than 0.6 EliAU/mL (<7 Negative)
--- NOTE | 2018-10-25 23:07 | DIS ---
DATE OF ADMISSION: 10/22/2018 DATE OF DISCHARGE: 10/24/2018 RESIDENT: Tuan Hardwick MD DISCHARGE ATTENDING: Juliet Stroud MD CONSULT: Mike Gonzalez MD PROCEDURES: Dialysis x4. PRIMARY DIAGNOSIS: Hyperkalemia. SECONDARY DIAGNOSES: Drug abuse, normocytic anemia, diabetes mellitus type 1, diarrhea, diastolic congestive heart failure, end-stage renal disease, and hypertension. DISCHARGE MEDICATIONS: 1. Renvela. 2. Celecoxib. 3. Hydralazine. 4. Amlodipine. 5. Sertraline. 6. Humalog. 7. Keppra. 8. Lantus. 9. Tylenol. DISCONTINUED MEDICATIONS: None. HISTORY OF PRESENT ILLNESS/HOSPITAL COURSE: This is a 37-year-old male, who presented to the ED after missing dialysis. He complained of general malaise. He was on Monday, Monday and Monday dialysis. He denied fever, chills or sweats. The patient states he missed dialysis because of chronic diarrhea. He was found to have a potassium of 8.6, was treated with D50 and insulin in the ED. Ultimately had dialysis x2 on day #1 of admission. On day #2, he was found to have persistent hyperkalemia and had a third round of dialysis. Then on the 4th day of admission, he had dialysis per his Monday, Monday and Monday schedule and was ultimately discharged. As far his chronic diarrhea, it did resolve throughout the stay as his electrolytes were normalized on the next two dialysis. Tissue trans glutamic acid was tested in order to evaluate for celiac disease. I advised the patient to avoid gluten for 2 weeks in order to see if this will help resolve his chronic diarrhea. DISPOSITION: Stable. DISCHARGE LOCATION: Home. DIET: Regular, renal. ACTIVITY: As tolerated. FOLLOWUP: Follow up with Dr. Mela Hardwick in 1 week. Please follow up on possibly celiacs for chronic diarrhea. If this is negative, consider a trial of metronidazole for treatment of amoebiasis. Job ID: [id number]
--- NOTE | 2018-11-01 18:36 | EKG ---
Test Reason : Blood Pressure : / mmHG Vent. Rate : 101 BPM Atrial Rate : 101 BPM P-R Int : 132 ms QRS Dur : 076 ms QT Int : 322 ms P-R-T Axes : 062 065 060 degrees QTc Int : 417 ms Sinus tachycardia Septal infarct , age undetermined cannot be excluded Abnormal ECG Confirmed by CRAIG MARCANO ([id number]) on 11/01/2018 6:36:04 PM Referred By: BABATUNDE Confirmed By:CRAIG MARCANO
--- NOTE | 2018-11-02 14:05 | EKG ---
Test Reason : Blood Pressure : / mmHG Vent. Rate : 085 BPM Atrial Rate : 085 BPM P-R Int : 224 ms QRS Dur : 116 ms QT Int : 368 ms P-R-T Axes : 049 -66 080 degrees QTc Int : 437 ms Sinus rhythm with 1st degree A-V block Left axis deviation Low voltage QRS Cannot rule out Anteroseptal infarct , age undetermined Abnormal ECG Confirmed by LANEY MABRY MD ([id number]), development editor VINI DE LA CRUZ ([id number]) on 11/02/2018 2:04:30 PM Referred By: Confirmed By:LANEY MABRY MD
== END 2018-10-24 14:20 | disposition home or self-care (01) ==
LOC: ERS 03:24 → 2SW 07:50
PROVIDERS: ADMIT Family Medicine; ATTEND Family Medicine
DX: E87.5 Hyperkalemia (principal); I13.2 Hypertensive heart and chronic kidney disease with heart failure and with stage 5 chronic kidney disease, or end stage renal disease; E11.22 Type 2 diabetes mellitus with diabetic chronic kidney disease; N18.6 End stage renal disease; I50.32 Chronic diastolic (congestive) heart failure; Z99.2 Dependence on renal dialysis; D63.1 Anemia in chronic kidney disease; E78.5 Hyperlipidemia, unspecified; F32.9 Major depressive disorder, single episode, unspecified; F17.210 Nicotine dependence, cigarettes, uncomplicated; F16.10 Hallucinogen abuse, uncomplicated; F12.10 Cannabis abuse, uncomplicated; I44.0 Atrioventricular block, first degree; G40.909 Epilepsy, unspecified, not intractable, without status epilepticus; Z89.511 Acquired absence of right leg below knee; Z86.73 Personal history of transient ischemic attack (TIA), and cerebral infarction without residual deficits; Z88.0 Allergy status to penicillin; Z79.4 Long term (current) use of insulin; Z79.899 Other long term (current) drug therapy; Z98.890 Other specified postprocedural states
CPT/HCPCS: 71045; 80048 ×3; 80053; 82805; 82962 ×3; 83516; 83605; 83690; 84132; 84145; 85025; 87040; 93005; 94760; 96365; 96375; 99285; 99406; G0378 ×2; 36415; 36416; 90935; 93010; G0257; J0692; J1644; J1815; J3370; J7611

== ENCOUNTER 2018-11-28 12:08 | Emergency (ER) | payer MEDICARE, MEDICAID ==
[2018-11-28 13:17] LABS: Base Excess-Venous -6.3 mmol/L (0 (+/- 2.5)); Bicarbonate (HCO3v) 19.9 mmol/L (22.0-29.0); CO2 Tension (PvCO2) 40.9 mmHg (41.0-51.0); Calcium, Ionized 0.95 mmol/L (1.12-1.32); Hemoglobin - Calc 13.6 g/dL (12.0-18.0); O2 Tension (PvO2) 105.8 mmHg (35.0-45.0); Potassium 8.7 mmol/L (3.4-4.7); T. Carbon Dioxide 21.2 mmol/L (1.0-85.0); pH (Venous) 7.295 (7.35-7.45); vO2 Saturation-calc 97.4 % (94-98)
[2018-11-28] MEDS ORDERED: Insulin Regular 300 UNITS/3 ML VIAL ONE (13:21)
[2018-11-28 13:34] LABS: #Eosinphils 0.1 thou/uL (0.0-0.7); #Lymphocytes 0.9 thou/uL (1.20-3.40); #Monocytes 0.5 thou/uL (0.11-0.59); #Neutrophils 3.2 thou/uL (1.40-6.50); %Eosinophils 2.1 % (0.0-10.0); %Lymphocytes 18.6 % (21.0-51.0); %Monocytes 9.8 % (0.0-10.0); %Neutrophils 68.6 % (42.0-75.0); Hemoglobin 12.2 g/dL (14.0-18.0); Mean Corpuscular HGB CONC 31.3 g/dL (32.0-36.0); Mean Corpuscular Hemoglobin 28.3 pg (27.0-31.0); Mean Corpuscular Volume 90.3 fL (78.0-98.0); Mean Platelet Volume 12.4 fL (7.4-10.4); Platelet Count 154 thou/uL (130-400); RBC Distribution Width 16.7 % (11.5-14.5); White Blood Cell (WBC) Count 4.6 thou/uL (4.8-10.8)
== END 2018-11-28 14:15 | disposition home or self-care (01) ==
LOC: ERS 12:08
DX: E10.65 Type 1 diabetes mellitus with hyperglycemia (principal); E78.5 Hyperlipidemia, unspecified; I13.2 Hypertensive heart and chronic kidney disease with heart failure and with stage 5 chronic kidney disease, or end stage renal disease; I50.9 Heart failure, unspecified; N18.6 End stage renal disease; F17.210 Nicotine dependence, cigarettes, uncomplicated; E10.22 Type 1 diabetes mellitus with diabetic chronic kidney disease; Z79.899 Other long term (current) drug therapy
CPT/HCPCS: 36416; 82010; 82330; 82803; 85025; 87804; 96374; J1815

== ENCOUNTER 2018-12-04 06:42 | Day surgery (SDC) | payer MEDICARE, MEDICAID ==
[2018-12-03 09:00] VITALS: BMI 22.3
[2018-12-04] MEDS ORDERED: Iopamidol 300 61% 100 ML VIAL FS ONE (09:35)
--- NOTE | 2018-12-04 11:43 | SPC ---
RIGHT UPPER EXTREMITY ARTERIOVENOUS DIALYSIS FISTULOGRAM AND VENOGRAM TO THE SVC: PERCUTANEOUS TRANSLUMINAL ANGIOPLASTY OF FOCAL STENOSIS IN THE PROXIMAL VENOUS OUTFLOW: FLUOROSCOPY: Total fluoroscopy time is 3.2 minutes. Total dose is 12,730 mGy per cm2. TECHNIQUE: The procedure, including the risks and complications, were explained to the patient and informed cons ent was obtained. The patient was placed on the angiography table in the supine position. The right upper extremity was meticulously prepped and draped in the usual sterile fashion. The skin and subc utaneous tissues overlying the proximal right upper extremity arteriovenous dialysis fistula were inf iltrated with buffered 1% Lidocaine for local anesthesia, at the intended puncture site. The fistula was accessed in the venous direction, utilizing a micropuncture technique, and a 5 German introducer sheath was placed. A fistulogram and venogram to the SVC were performed. Due to focal severe steno sis in the proximal venous outflow, contrast was injected, which refluxed into the arteriovenous anas tomosis, which was patent. Due to the access near one of the focal areas of severe narrowing, the introducer sheath was removed, and hemostasis was achieved with direct pressure. Utilizing concurrent real-time ultrasound guidanc e, a more proximal access site was obtained within the proximal inflow of the right upper extremity a rteriovenous dialysis fistula. A short, 6-German vascular sheath was placed. A 0.035 inch Bentson g uidewire was placed and manipulated distal to the focal areas of severe tandem stenosis within the pr oximal venous inflow. Venous inflow measured approximately 4 mm, with tapering of the cephalic vein outflow to 3 mm. As a result, a 4 mm x 4 cm angioplasty balloon was placed over the guidewire and an gioplasty was performed of the focal areas of severe narrowing within the proximal venous outflow. P ost angioplasty fistulogram demonstrates improvement in luminal diameter, although the prominent low ateral veins did persist. However, given the very small caliber of the venous outflow, a larger tarun ayana angioplasty balloon was not placed at this time, and there was otherwise good flow throughout the fistula, without evidence of reflux into the region of the arterial anastomosis on final injection, suggesting improved flow. The SVC is not well evaluated, primarily due to decreased venous flow due to the small caliber of the cephalic vein and multiple collaterals. A right internal jugular vein he modialysis catheter is noted in place at this time. IMPRESSION: Focal severe tandem stenosis in the proximal venous inflow of the right upper extremity arteriovenous dialysis fistula. Percutaneous transluminal angioplasty to 4 mm diameter was performed, as this was the diameter of the normal and largest caliber portion of the cephalic vein outflow. Post percutane ous transluminal angioplasty fistulogram demonstrates improvement in luminal diameter and flow. Foll ow-up fistulogram can be performed as indicated. POS: [facility]
== END 2018-12-04 10:30 | disposition home or self-care (01) ==
LOC: SPEC 06:42
PROVIDERS: ATTEND Radiology Vascular & Interventional Radiology
PROC: 057D3ZZ Dilation of Right Cephalic Vein, Percutaneous Approach (ICD-10-PCS; principal; 2018-12-04)
DX: T82.858A Stenosis of other vascular prosthetic devices, implants and grafts, initial encounter (principal); N18.6 End stage renal disease; Z88.0 Allergy status to penicillin; Z79.4 Long term (current) use of insulin; Z79.899 Other long term (current) drug therapy
CPT/HCPCS: 36901; 36902; C1725; Q9967

== ENCOUNTER 2018-12-20 06:55 | Day surgery (SDC) | payer MEDICARE, MEDICAID ==
[2018-12-19 08:34] VITALS: BMI 20.7
[2018-12-20 08:20] VITALS: BP 172/87; TEMP 97.4
--- NOTE | 2018-12-20 12:26 | SPC ---
DIALYSIS FISTULOGRAM: HISTORY: Question of suboptimally functioning dialysis fistula. RADIATION DOSIMETRY: 1.2 minutes of fluoroscopy and DaP of 11.8 uGy*^cm2. TECHNIQUE: Informed consent was obtained. The right upper extremity dialysis fistula was palpated. The overlyi ng skin was prepped and draped in the usual sterile manner. A 1% Lidocaine solution was used to anes thetize the overlying soft tissues. A small dermatotomy was made. A 4 Malaysian micropuncture set was used to gain access into the right upper extremity fistula. A fistulogram was performed. There is a small pseudoaneurysm at the arterial anastomosis. Contrast flows from the arterial anastomosis into the fistula without evidence of significant stenosis seen into the right cephalic vein as well as vi a some collaterals into the right basilic vein and axillary vein. The right subclavian vein and righ t brachiocephalic veins are opacified. IMPRESSION: No definite evidence of right upper extremity dialysis fistula stenosis. Previously angioplastied ar ea appears to be patent at this time. POS: [facility]
== END 2018-12-20 09:00 | disposition home or self-care (01) ==
LOC: SPEC 06:55
PROVIDERS: ATTEND Specialist
PROC: B51W1ZZ Fluoroscopy of Dialysis Shunt/Fistula using Low Osmolar Contrast (ICD-10-PCS; principal; 2018-12-20)
DX: T82.590A Other mechanical complication of surgically created arteriovenous fistula, initial encounter (principal); I13.2 Hypertensive heart and chronic kidney disease with heart failure and with stage 5 chronic kidney disease, or end stage renal disease; E10.22 Type 1 diabetes mellitus with diabetic chronic kidney disease; N18.6 End stage renal disease; I50.9 Heart failure, unspecified; E78.5 Hyperlipidemia, unspecified; F17.210 Nicotine dependence, cigarettes, uncomplicated; F41.9 Anxiety disorder, unspecified; F32.9 Major depressive disorder, single episode, unspecified; Z86.73 Personal history of transient ischemic attack (TIA), and cerebral infarction without residual deficits; Z79.899 Other long term (current) drug therapy; Z88.0 Allergy status to penicillin; Z99.2 Dependence on renal dialysis
CPT/HCPCS: 36901

== ENCOUNTER 2018-12-23 07:56 | Inpatient (IN) | payer MEDICARE, MEDICAID ==
[2018-12-23 09:09] LABS: Actual Bicarbonate (HCO3a) 22.8 mEq/L (22-28); Analyzer IN Cardio ER; Base Excess (BEa) -4.8 mEq/L (-2.0 to +3.0); CO2 Tension 52.8 mmHg (35.0-45.0); Calcium, Ionized 1.17 mmol/L (1.12-1.30); Carboxyhemoglobin (COHb) 1.9 gm% (0.0-3.0); Hemoglobin (Hb) 13.4 g/dL (14.0-18.0); O2 Tension (PaO2) 105.1 mmHg (80.0-100.0); Potassium - ABG Lab 5.76 mmol/L (3.70-5.30)
[2018-12-23 09:19] LABS: Puncture Site RRA; pH, Arterial 7.25 (7.35-7.45)
[2018-12-23 09:50] LABS: Band 1 % (5-11); Eosinophils 2 % (0-10); Hemoglobin 13.6 g/dL (14.0-18.0); Lymphocytes 43 % (21-51); MDiff Complete? YES; Mean Corpuscular HGB CONC 31.5 g/dL (32.0-36.0); Mean Corpuscular Hemoglobin 27.9 pg (27.0-31.0); Mean Corpuscular Volume 88.5 fL (78.0-98.0); Mean Platelet Volume 9.1 fL (7.4-10.4); Monocytes 8 % (0-10); Neutrophil 45 % (42-75); Platelet Count 119 thou/uL (130-400); RBC Distribution Width 17.2 % (11.5-14.5); Red Blood Cell (RBC) Count 4.87 mill/uL (4.70-6.10); White Blood Cell (WBC) Count 4.9 thou/uL (4.8-10.8)
[2018-12-23 09:55] LABS: Acetaminophen Less than 6.0 mcg/mL (10.0-30.0); Alcohol Less than 10 mg/dL (Less than 10); Salicylate Less than 8.0 mg/dL (15.0-30.0)
[2018-12-23 10:12] LABS: ALT (SGPT) 17 U/L (8-55); AST (SGOT) 13 U/L (5-34); Albumin 4.2 g/dL (3.5-5.0); Alkaline Phosphatase 173 U/L (40-150); Anion Gap 24 mmol/L (10-20); BUN (Urea Nitrogen) 64 mg/dL (8.9-20.6); Bilirubin, Total 0.3 mg/dL (0.2-1.2); CK (CPK) 73 U/L (30-200); Calc. Creatinine Clearance 0 mL/min (70-130); Calcium 9.8 mg/dL (7.8-10.44); Carbon Dioxide 20 mmol/L (22-29); Chloride 99 mmol/L (98-107); Estimated GFR-MDRD 12; Globulin 3.9 g/dL (2.4-3.5); Glucose 332 mg/dL (70-105); Protein, Total 8.1 g/dL (6.0-8.3); Sodium 137 mmol/L (136-145)
--- NOTE | 2018-12-23 10:28 | RAD ---
CHEST 1 VIEW: Date: 12/23/18 HISTORY: Altered mental status. Dyspnea. COMPARISON: 10/22/18. FINDINGS: Cardiac silhouette is magnified by projection. Pulmonary vasculature is unremarkable. Mediastinum is midline. Left subclavian and axillary stents are apparent, stable compared to the prior exam. Right internal jugular catheter has been removed since the most recent exam. No evidence of pneumotho rax. IMPRESSION: No active cardiopulmonary abnormalities are demonstrated. POS: [facility]
--- NOTE | 2018-12-23 10:29 | CT ---
CT HEAD NONCONTRAST DATE: 12/23/18 HISTORY: Altered mental status. COMPARISON: 06/08/18. FINDINGS: There is no evidence of acute intracranial hemorrhage or infarct. The ventricles appear normal in siz e, shape, and position. There is no mass effect or shift of midline structures. Visualized paranasal sinuses remain well aerated. IMPRESSION: No acute intracranial abnormalities are demonstrated. POS: [facility]
--- NOTE | 2018-12-23 10:59 | PDOC.FPRHP ---
- History of Present Illness Chief Complaint: Lethargy History of Present Illness: This is a 37 yo M well known to our service with a pmh of ESRD on MWF dialysis, who presents to the ED with a cc of lethargy. EMs reports they were called after a caregiver notice pt's dialysis catheter had come out and pt was more lethargic than usual. EMS had a temp of 91.2 degrees Fahrenheit on site. Pt believes that he had dialysis on Monday but he is unsure. He currently denies fever, nausea, vomiting, chest pain, SOB, or abdominal pain. He denies recent sick contact. In regards to his DM1, pt reports his mother managing his insulin but that he usually takes his long acting insulin based on how his blood sugar is in the morning. ED Course: Calcium chloride IV 100 mg Sodium bicarb 1 amp Novalin R 6units/hr NS bolus 500mg NS 125 ml/hr maintenance - Allergies/Adverse Reactions Allergies Allergy/AdvReac Type Severity Reaction Status Date / Time Penicillins Allergy Unknown Verified 12/23/18 12:13 - Home Medications Medication Instructions Recorded Confirmed Type Sevelamer Carbonate [Renvela] 3 tab PO TID-WM 09/08/15 12/23/18 History Amlodipine Besylate [amLODIPine 10 mg PO DAILY 09/02/16 12/23/18 History Besylate] Cinacalcet HCl [Sensipar] 60 mg PO DAILY 09/02/16 12/23/18 History hydrALAZINE [Apresoline] 25 mg PO TID 09/02/16 12/23/18 History Sertraline HCl 25 mg PO DAILY 03/03/17 12/23/18 History HumaLOG [HumaLOG Vial] 3 units SC TID-WM vial 06/04/18 12/23/18 Rx Insulin Glargine [Lantus Vial] 12 units SC QAM 30 Days #1 vial 06/04/18 Rx levETIRAcetam [Keppra] 500 mg PO BID #60 tab 06/04/18 12/23/18 Rx HumaLOG [HumaLOG Vial] 0 unit SC TID-WM PRN 09/17/18 12/23/18 History Acetaminophen [Tylenol Regular 650 mg PO Q4H PRN tab 09/27/18 12/23/18 Rx Strength] - History PMHx: CHF, DM1, ESRD on MWF dialysis, Right BKA, CVAx2, HLD, HTN, Depression PSHx: Rt BKA, L fistula reomved, Right fisual recently placed, right vasc cath ( subclavian, Pt pulled prior to this hospitalization) FHx: noncontributory Social: 10 year smoking history, hx of marijuana use, denies current alcohol use - Review of Systems ROS unobtainable: other (Pt was lethartic and may have effected ROS) General: denies: fever/chills, weight/appetite/sleep changes, night sweats, fatigue Eyes: denies: eye pain, vision changes ENT: denies: nasal congestion, rhinorrhea Respiratory: denies: cough, congestion, shortness of breath Cardiovascular: denies: chest pain, palpitation Gastrointestinal: denies: nausea, vomiting, diarrhea, constipation, abdominal pain Skin: denies: rashes, lesions Musculoskeletal: denies: pain, tenderness, stiffness Neurological: denies: numbness, syncope Psychological: denies: anxiety, depression - Vital signs BP: 179/97 HR: 81 RR: 12 Tmax: 98.3 Pox: 100% on RA Wt: 63 kg - Physical Exam Constitutional: NAD, well developed -Constitutional: Pt oriented x4, pt lethargic but easily arousable HEENT: normocephalic and atraumatic, EOMI, conjunctiva clear, grossly normal hearing, MMM, other (small, nonreactive pupils) Neck: supple, FROM, trachea midline, no JVD -Neck: multiple scars on left and right, presumptively from previous line placement Chest: no-tender to palpation, no lesions Heart: RRR, normal S1/S2, no murmurs/rubs/gallops, pulses present, other (Pt had 2+ pitting edema to his knee on the left) Lungs: CTAB, no respiratory distress, good air movement, no wheezing, no retractions Abdomen: soft, non-tender, bowel sounds present, no masses/distention -Musculoskeletal: Right BKA Neurological: CN II-XII intact Skin: capillary refill <2 seconds, other (Pt has ulcer on right hand, and a fistual on right AC region.) Heme/Lymphatic: no purpura, no petechia Psychiatric: other (Poor memory, lethargic) FMR H&P: Results - Labs Result Diagrams: 12/23/18 08:28 12/23/18 15:47 Lab results: WBC 4.9 thou/uL (4.8-10.8) 12/23/18 08:28 Hgb 13.6 g/dL (14.0-18.0) L 12/23/18 08:28 Hct 43.1 % (42.0-52.0) 12/23/18 08:28 MCV 88.5 fL (78.0-98.0) 12/23/18 08:28 Plt Count 119 thou/uL (130-400) L 12/23/18 08:28 Band Neuts % (Manual) 1 % (5-11) L 12/23/18 08:28 ABG pH 7.25 (7.35-7.45) L* 12/23/18 09:00 ABG pCO2 52.8 mmHg (35.0-45.0) H 12/23/18 09:00 ABG pO2 105.1 mmHg (80.0-100.0) H 12/23/18 09:00 Sodium 137 mmol/L (136-145) 12/23/18 08:28 Potassium 6.0 mmol/L (3.5-5.1) H 12/23/18 08:28 Chloride 99 mmol/L (98-107) 12/23/18 08:28 Carbon Dioxide 20 mmol/L (22-29) L 12/23/18 08:28 BUN 64 mg/dL (8.9-20.6) H 12/23/18 08:28 Creatinine 6.57 mg/dL (0.7-1.3) H 12/23/18 08:28 Glucose 332 mg/dL (70-105) H 12/23/18 08:28 Lactic Acid 0.7 mmol/L (0.5-2.2) 12/23/18 08:28 Calcium 9.8 mg/dL (7.8-10.44) 12/23/18 08:28 Total Bilirubin 0.3 mg/dL (0.2-1.2) 12/23/18 08:28 AST 13 U/L (5-34) 12/23/18 08:28 ALT 17 U/L (8-55) 12/23/18 08:28 Alkaline Phosphatase 173 U/L (40-150) H 12/23/18 08:28 Creatine Kinase 73 U/L (30-200) 12/23/18 08:28 Serum Total Protein 8.1 g/dL (6.0-8.3) 12/23/18 08:28 Albumin 4.2 g/dL (3.5-5.0) 12/23/18 08:28 - EKG Interpretation EKG: NSR, 75 bpm, borderline peaked T waves in V2, V3, V4 - Radiology Interpretation CT scan - head Status: report reviewed by me (No acute intracranial abnormalities) Chest x-ray Status: report reviewed by me (No acute cardio pulmonary abnormalities) FMR H&P: A/P - Problem List (1) DKA (diabetic ketoacidoses) Current Visit: No Status: Resolved Code(s): E13.10 - OTH DIABETES MELLITUS WITH KETOACIDOSIS WITHOUT COMA (2) Hemodialysis catheter dysfunction Current Visit: No Status: Acute Code(s): T82.41XA - BREAKDOWN (MECHANICAL) OF VASCULAR DIALYSIS CATHETER, INIT (3) Hyperkalemia Current Visit: No Status: Acute Priority: High Code(s): E87.5 - HYPERKALEMIA (4) Hypothermia Current Visit: No Status: Acute Code(s): T68.XXXA - HYPOTHERMIA, INITIAL ENCOUNTER (5) Anxiety and depression Current Visit: No Status: Chronic Code(s): F41.9 - ANXIETY DISORDER, UNSPECIFIED; F32.9 - MAJOR DEPRESSIVE DISORDER, SINGLE EPISODE, UNSPECIFIED (6) Diabetes mellitus type 1 Current Visit: No Status: Chronic Code(s): E10.9 - TYPE 1 DIABETES MELLITUS WITHOUT COMPLICATIONS (7) Diastolic CHF Current Visit: No Status: Chronic Code(s): I50.30 - UNSPECIFIED DIASTOLIC ( CONGESTIVE) HEART FAILURE Qualifiers: (8) ESRD (end stage renal disease) on dialysis Current Visit: No Status: Chronic Code(s): N18.6 - END STAGE RENAL DISEASE; Z99.2 - DEPENDENCE ON RENAL DIALYSIS (9) Hypertension Current Visit: No Status: Chronic Code(s): I10 - ESSENTIAL (PRIMARY) HYPERTENSION Qualifiers: Hypertension type: essential hypertension Qualified Code(s): I10 - Essential (primary) hypertension (10) Tobacco abuse Current Visit: No Status: Chronic Code(s): Z72.0 - TOBACCO USE - Plan This is a 38 yo male with poor compliance with a PMH of ESRD on HD, HTH, HLD, DM1, Tobacco abuse DKA -Admit to CCU -ABG: pH 7.25, CO2 52.8, O2 105, Bicarb 22.8 -Glucose 287, Beta-hydroxybutyrate 0.9, LA 0.7 -Anion Gap of 15 -Initiating DKA protocol. Pt will likely respond quickly to therapy as it appears pt is in mild DKA if any. Pt will require dialysis, however not urgently. Dr. Gonzalez has been consulted and will do dialysis later today. Dr. Chamberlain has been consulted for vasc cath placement as pt's dialysis fistula is not mature. -NPO for now, pending closed gap -Will down grade care when possible Hypothermia -91.2 at home, 98.3 with bear hugger -Will monitor, likely a sequela of DKA -Pending Blood cultures -No apparent need for abx at this time ESRD on MWF dialysis -Dr. Gonzalez has been consulted, we will appreciate his recommendations -Hyperkalemia, borderline peaked T waves, s/p calcium gluconate and sodium bicarb DM1 - Will continue home medication regimen once anion gap and DKA are resolved -Will discuss with pt and caregiver how they give insulin, appears non- compliant vs. uneducated on importance of insulin HLD -Continue home meds HTN -Continue home meds Depression Seizures Multi drug abuse -Marijuana, hx of PCP, tobacco -Encourage cessation FMR H&P: Upper Level - Pertinent history Silvestre Brush is a 38 year old M with a PMH of Type 1 DM, ESRD on MWF HD, HTN, HLD, CHF, and CVA X2 who was brought into the ED by EMS after his caregiver found him lying on the cough with his dialysis catheter pulled out. EMS was called and found that he had slowed speech, appeared lethargic and had a TM temp of 91.2. His first documented temp in the ED was 95.8. Patient is a poor historian and kept falling asleep during the H&P. He was easily arousable and did answer questions. He denies any recent changes in insulin regimen. States that his mother manages his insulin. He doesnt know what type of insulin he takes but says he gets it as a sliding scale once a day. He denies any recent fever, chills, chest pain, dyspnea, n/v, abdominal pain. Denies polyuria, polydipsia, polyphagia. Caregiver reported to the EMS that patient has been slower to respond today and she had noticed slightly increased LE edema in patient. Patient states that he is unaware of how the catheter came out. Finger Cobbler is Dr. Gonzalez. Pt was unsure if he went to dialysis on Monday or if he missed it. Upon review of clinic chart, patient takes Lantus 20 U daily and Humalog 3 U after meals. In the ED, Dr. Gonzalez and Dr. Chamberlain were consulted. Patient was given Calcium chloride 100 mg IV, Sodium Bicarbonate 1 amp, Novolin R 6 U/hr, NS 500 mL bolus , NS 125 ml/hr maintenance. ROS: 12 point ROS negative unless otherwise stated in HPI PE: HEENT: AT/NC, MMMs, EOMI, PERRLA Neck: No JVD, FROM CV: RRR no murmurs, rubs, gallops Resp: Lungs CTAB no wheezes, rales, rhonchi Abd: Soft, NT/ND, +BS Ext: No cyanosis or edema. Right BKA Neuro: non focal, CN II-XII intact, slowed speech, A&O X3 - Pertinent findings Laboratory Tests 12/23/18 12/23/18 12/23/18 08:28 08:28 08:28 WBC 4.9 Hgb 13.6 L Hct 43.1 Plt Count 119 L ABG pH ABG pCO2 ABG pO2 Sodium 137 Potassium 6.0 H Chloride 99 Carbon Dioxide 20 L Anion Gap 24 H BUN 64 H Creatinine 6.57 H Glucose 332 H Lactic Acid Calcium 9.8 Total Bilirubin 0.3 AST 13 ALT 17 Alkaline Phosphatase 173 H Creatine Kinase 73 Troponin I Less than 0.010 Serum Total Protein 8.1 Albumin 4.2 Globulin 3.9 H Albumin/Globulin Ratio 1.1 L Salicylates Acetaminophen Plasma Alcohol B-Hydroxybutyrate 12/23/18 12/23/18 12/23/18 08:28 08:28 08:28 WBC Hgb Hct Plt Count ABG pH ABG pCO2 ABG pO2 Sodium Potassium Chloride Carbon Dioxide Anion Gap BUN Creatinine Glucose Lactic Acid 0.7 Calcium Total Bilirubin AST ALT Alkaline Phosphatase Creatine Kinase Troponin I Serum Total Protein Albumin Globulin Albumin/Globulin Ratio Salicylates Less than 8.0 L Acetaminophen Less than 6.0 L Plasma Alcohol Less than 10 B-Hydroxybutyrate 0.90 H 12/23/18 09:00 WBC Hgb Hct Plt Count ABG pH 7.25 L* ABG pCO2 52.8 H ABG pO2 105.1 H Sodium Potassium Chloride Carbon Dioxide Anion Gap BUN Creatinine Glucose Lactic Acid Calcium Total Bilirubin AST ALT Alkaline Phosphatase Creatine Kinase Troponin I Serum Total Protein Albumin Globulin Albumin/Globulin Ratio Salicylates Acetaminophen Plasma Alcohol B-Hydroxybutyrate - Plan Date/Time: 12/23/18 1059 I, Trent Medina MD, have evaluated this patient and agree with findings/plan as outlined by program management intern resident. Pertinent changes/additions are listed here. 1) Mild Diabetic Ketoacidosis: - Bicarb of 20, Anion gap of 14, pH on ABG 7.25, and beta hydroxybutarate of 0.9. - Mostly likely cause of DKA is noncompliance in insulin regimen. No evidence of infection at this time, blood cultures were drawn. - Started on DKA protocol. Monitoring closely for hypokalemia and hypoglycemia , especially because patient has ESRD. - Dr. Chamberlain consulted for placement of dialysis catheter. Dr. Gonzalez consulted for HD. - Dr. Gonzalez recommended dialysis after placement of new dialysis catheter. 2) ESRD on HD: - Currently going to OR for re-placement of dialysis catheter with Dr. Chamberlain - Will get HD after procedure - Will follow Dr. Gonzalez recs - EKG showed mild peaked T waves, s/p 1 amp Calcium and 1 amp HCO3 in ED 3) Type I DM: - Holding home insulin regimen until DKA resolved - Continue DKA protocol at this time. 3) Hypothermia - 91.2 degrees measured in the field by EMS - First documented temp in ED was 95.8, improved to 98.3 with bearhugger - Blood cultures drawn, negative WBC count, no other signs of infection - Likely 2/2 DKA 4) HTN - Monitor BPs closely - Will continue home meds 5) HLD - Continue home meds 6) CHF - Last Echo in 09/09 showed LVEF of 60-65%. - Monitor for fluid overload 7) Multisubstance abuse: marijuana, hx of PCP - encourage cessation CODE STATUS: FULL CODE Dispo: Admit to CCU, anticipate >48 hr hospital stay Addendum - Attending - Attending Attestation Date/Time: 12/23/18 4943 I personally evaluated the patient and discussed the management with Dr. Hdz. I agree with the History, Examination, Assessment and Plan documented above with any addition or exceptions noted below. The patient was hypothermic with temp 91.2 on ems arrival. Bearhugger has improved temperature. Pt has been very lethargic in past few days. He wakes to sternal rub for me and is alert and oriented x 4 but falls asleep easily. He has an anion gap and and elevated betahydroxybutyrate. Pt was started on dka protocol. He is also hyperkalemic and in need of dialysis but his dialysis catheter has been removed. Consulting nephrology for dialysis and gen surg for temporary dilysis catheter placement. Pt will be admitted to the ICU. Blood cultres have been drawn but there are no obvious signs of infection at this time.
[2018-12-23] MEDS ORDERED: Insulin Regular 100 UNITS in Sodium Chloride 0.9% 100 ML IVPB SCH (11:00)
[2018-12-23] MEDS ORDERED: Heparin 1,000 UNITS/ML VIAL ONE (11:11)
[2018-12-23] MEDS ORDERED: NS 0.9% w/ 20 MEQ KCL 1,000 ML IV PRN ×2 (11:54)
[2018-12-23] MEDS ORDERED: HUMULIN R 100 UNITS in Sodium Chloride 0.9% 100 ML IVPB SCH (11:54)
[2018-12-23] MEDS ORDERED: CCU Electrolyte Replacement 1 EACH IVPB ONE (11:54)
[2018-12-23] MEDS ORDERED: Sodium Chloride 0.9% 1,000 ML IV PRN ×4 (11:54)
[2018-12-23] MEDS ORDERED: Acetaminophen 325 MG TAB PO PRN (11:54)
[2018-12-23] MEDS ORDERED: Ondansetron PF 4 MG/2 ML Vial IVP PRN (11:54)
[2018-12-23] MEDS ORDERED: D5 1/2 NS w/20 mEq KCL 1,000 ML IV PRN (11:54)
[2018-12-23] MEDS ORDERED: Dextrose 5 %-0.45 % NaCl 1,000 ML IV PRN (11:54)
[2018-12-23] MEDS ORDERED: Ondansetron ODT 4 MG TAB PO PRN (11:54)
[2018-12-23] MEDS ORDERED: Potassium Chloride 40 MEQ in Premix Bag 1 BAG IVPB PRN (12:04)
[2018-12-23] MEDS ORDERED: Potassium Phosphate 9 MMOL in Sodium Chloride 0.9% 100 ML IVPB PRN (12:04)
[2018-12-23] MEDS ORDERED: Potassium Phosphate 12 MMOL in Sodium Chloride 0.9% 250 ML 250 ML IV PRN (12:04)
[2018-12-23] MEDS ORDERED: Magnesium 2 GM/50 ML 2 GM in Premix Bag 1 BAG IVPB PRN (12:04)
[2018-12-23] MEDS ORDERED: CCU ELECTROLYTE REPLACEMENT PROTOCOL FS PRN (12:04)
[2018-12-23] MEDS ORDERED: Potassium Chloride 40 MEQ in Sodium Chloride 0.9% 250 ML 250 ML IVPB PRN (12:04)
[2018-12-23] MEDS ORDERED: Potassium Chloride 20 MEQ TAB PO PRN (12:04)
[2018-12-23] MEDS ORDERED: Potassium Phosphate 15 MMOL in Sodium Chloride 0.9% 250 ML 250 ML IV PRN (12:04)
[2018-12-23] MEDS ORDERED: Magnesium Oxide 400 MG TAB PO PRN ×2 (12:04)
[2018-12-23] MEDS ORDERED: Sodium Bicarb 50 MEQ/50 ML Abboject 8.4% SYRINGE ONE ×2 (12:11→12:14)
[2018-12-23 12:37] LABS: Anion Gap 20 mmol/L (10-20); BUN (Urea Nitrogen) 60 mg/dL (8.9-20.6); Calc. Creatinine Clearance 0 mL/min (70-130); Calcium 8.1 mg/dL (7.8-10.44); Carbon Dioxide 17 mmol/L (22-29); Chloride 106 mmol/L (98-107); Estimated GFR-MDRD 13; Glucose 278 mg/dL (70-105); Potassium 5.6 mmol/L (3.5-5.1); Sodium 137 mmol/L (136-145)
[2018-12-23] MEDS ORDERED: Midazolam HCl 2 mg/2 ml Vial ONE (13:00)
[2018-12-23] MEDS ORDERED: Fentanyl 100 MCG/2 ML VIAL ONE (13:00)
[2018-12-23] MEDS ORDERED: PROPOFOL 20 ML ONE (13:01)
[2018-12-23] MEDS ORDERED: Ketamine 50 MG/ML (10ML VIAL) ONE (13:01)
[2018-12-23] MEDS ORDERED: Bupivacaine/Epinephrine 0.25% 30 ML VIAL ONE (13:05)
[2018-12-23] MEDS ORDERED: Lidocaine 2% PF 5 ML VIAL ONE (13:05)
[2018-12-23] MEDS ORDERED: Sodium Chloride 0.9% 20 ML ONE (13:05)
[2018-12-23] MEDS ORDERED: Heparin 10,000 UNITS/1 ML VIAL ONE (13:05)
[2018-12-23] MEDS ORDERED: Levofloxacin 500 mg/D5W 100 ml Premix Bag ONE (13:09)
[2018-12-23] MEDS ORDERED: Vancomycin HCl 1.5 GM in Sodium Chloride 0.9% 250 ML 300 ML IVPB SCH (13:15)
--- NOTE | 2018-12-23 13:44 | CON ---
DATE OF CONSULTATION: REASON FOR CONSULTATION: Hyperkalemia. HISTORY OF PRESENTING ILLNESS: This is a very noncompliant 38-year-old gentleman, who had dialysis on [place], presented to the hospital for altered mental status and pulling out his catheter. His potassium was noted to be 6. The patient denies any nausea, vomiting, or chest pain. PAST MEDICAL HISTORY: Significant for hypertension, ESRD, hyperkalemia, noncompliance, diabetes mellitus, AV fistula and tunneled dialysis catheter on multiple occasions, history of drug abuse, history of pneumonia, history of congestive heart failure, and history of [id number] amputation. SOCIOECONOMIC HISTORY: History of drug use. MEDICATIONS: Home medications list, reviewed. Hospital medications list, reviewed. ALLERGIES: REVIEWED. REVIEW OF SYSTEMS: A 15-point review of systems was performed, negative except for positives noted above. NECK: No swelling or lumps. NOSE: No epistaxis or discharge. EYES: No diplopia or pain. MUSCULOSKELETAL: No joint pain. NEUROPSYCHIATIC SYSTEMS: No suicidal ideation. No ideation. SKIN: Denies any rash or ulcer. CONSTITUTIONAL: No fever or chills. FAMILY HISTORY: Negative for ESRD. PHYSICAL EXAMINATION: GENERAL: The patient is awake and alert. VITAL SIGNS: Afebrile, pulse 70, breathing 16, blood pressure was 167/80. GENERAL APPEARANCE AND MENTAL STATUS: Fair. HEAD/NECK: Normocephalic. Atraumatic. EYES: EOMI. No deformity. EARS: Clear. No ulcers. NOSE: Intact. No lesions. MOUTH: Clear. No discharge. THROAT: Clear. No exudate. LUNGS: Clear. No crackles. CARDIAC: S1, S2. No rub. ABDOMEN: Benign. Bowel sounds positive. GENITALIA/RECTUM: Clifton absent. BACK/EXTREMITIES: Edema 0+. NEUROLOGICAL: Alert and motor intact. LABORATORY DATA: Labs show hemoglobin is 13.6. Potassium is 6. Bicarb 20. ASSESSMENT AND PLAN: 1. End-stage kidney disease with hyperkalemia. Plan dialysis. 2. Hyperkalemia. Plan dialysis. 3. Anemia, stable. 4. Medication based on GFR, appropriate. 5. The dialysis nurse was aware of the patient's condition. Job ID: [id number]
[2018-12-23] MEDS ORDERED: PROPOFOL 200 MG/20 ML VIAL ONE (14:36)
[2018-12-23 14:55] VITALS: BMI 21.9
--- NOTE | 2018-12-23 14:55 | CON ---
DATE OF CONSULTATION: REASON FOR CONSULT: Need for dialysis access. HISTORY: Mr. Brush is a 38-year-old man, seen by Dr. Isabel for end-stage renal failure. He has a right upper arm cephalic fistula, which has not been developing as expected. Recent fistulogram did not show any problems with stenosis in the fistula itself. The patient denies any problems with his hand. He presented to the ER today after pulling out his dialysis catheter at home. He was not actively bleeding, but he was noted to have decreased level of consciousness and lab work showed a significant combined metabolic and respiratory acidosis as well as an elevated potassium of 6. The patient states that he did go to dialysis on Monday as scheduled and did a full course of dialysis. PAST MEDICAL HISTORY: End-stage renal failure; diabetes; hypertension; end-stage renal failure on dialysis Monday, Monday, and Monday; peripheral vascular disease; cerebral artery disease; congestive heart failure; and hyperlipidemia. PAST SURGICAL HISTORY: Right upper arm cephalic AV fistula placed a couple months ago, but not yet ready to access, right IJ tunneled dialysis catheter, and multiple dialysis access procedures on the left arm, which have since been ligated. FAMILY HISTORY: Noncontributory. SOCIAL HISTORY: By report, the patient does smoke and use marijuana, but does not drink or use other drugs. REVIEW OF SYSTEMS: Difficult to obtain due to lethargy. The patient will answer short questions, but not complex ones. He denies any chest pain, shortness of breath, nausea, vomiting, abdominal pain, fevers, or chills. He denies any lightheadedness or dizziness. Denies significant blood loss from his catheter removal. PHYSICAL EXAMINATION: VITAL SIGNS: The patient was afebrile in the emergency room. Heart rate was elevated. Respiratory rate normal and 100% saturated on room air with heart rate in the 80s. GENERAL: Reveals a lethargic, but cooperative man in no acute distress. He is not flushed or toxic in appearance. He is not jaundiced or icteric. HEENT: Unremarkable. NECK: Supple without lymphadenopathy or thyroid nodules. Right IJ tunnel dialysis catheter site is clean without active bleeding. He has a palpable right upper arm fistula, which is not yet arterialized, although there is an audible bruit to the shoulder and a faint palpable thrill at the forearm or at the antecubital fossa. He has healed graft and fistula incisions on the left arm, but none with continued flow. ABDOMEN: Soft, nontender, and nondistended. EXTREMITIES: Warm and well perfused. NEURO: No focal deficits. PSYCHIATRIC: Alert, oriented, and appropriate. LABORATORY DATA: White count is normal, hematocrit 43, and platelets 119. A pH of 7.25 with a pCO2 of 52 and a base deficit of 4.8. On BMP, his initial potassium was 6 with a bicarb of 20, glucose is 332, alkaline phosphatase of 173, but other LFTs normal. Repeat BMP at noon showed a pH of 5.6, and bicarb of 17. Toxicology showed a high B-hydroxybutyrate level of 0.9 with negative salicylate, acetaminophen, or alcohol. Brain CT did not show any acute abnormalities. ASSESSMENT AND PLAN: End-stage renal failure on dialysis. He is being admitted to the [facility] and placement of a dialysis catheter was requested for dialysis today. He has not eaten anything today by report, so I would plan to place a tunneled dialysis catheter with local anesthesia and minimal sedation, since the patient has very limited sites for access. Inherent risks of the procedure include, but are not limited to, bleeding, infection, risks of anesthesia, hemothorax, pneumothorax, and need for other procedures. The patient has had this procedure done multiple times in the past, but was not really in the mental state to give informed consent at this time. However, this is an emergency situation and the ER and [facility] doctors and I are in agreement that he needs access for ongoing dialysis. He has been posted for the operating room, will be taken for tunnel catheter as soon as a OR room is available. He has a penicillin allergy, so I have ordered levofloxacin and vancomycin on-call to the OR. Job ID: [id number]
[2018-12-23] MEDS ORDERED: Dextrose 5% in Water 1,000 ML IV PRN (15:21)
[2018-12-23] MEDS ORDERED: Dextrose 50% Abboject 50 ML SYRINGE SLOW IVP PRN (15:21)
[2018-12-23] MEDS ORDERED: Insulin Glargine 12 UNITS in Pre-Filled Syringe 1 EACH SC SCH (15:30)
[2018-12-23] MEDS ORDERED: Dextrose 5 %-0.45 % NaCl 1,000 ML IV SCH (15:30)
[2018-12-23 16:29] LABS: Anion Gap 14 mmol/L (10-20); BUN (Urea Nitrogen) 40 mg/dL (8.9-20.6); Calc. Creatinine Clearance 23 mL/min (70-130); Carbon Dioxide 26 mmol/L (22-29); Chloride 104 mmol/L (98-107); Estimated GFR-MDRD 19; Sodium 140 mmol/L (136-145)
[2018-12-23 16:31] LABS: Glucose 51 mg/dL (70-105)
--- NOTE | 2018-12-23 16:39 | CON ---
DATE OF CONSULTATION: 12/23/2018 SERVICE: Pulmonary Medicine. REASON FOR CONSULT: ICU patient. HISTORY OF PRESENT ILLNESS: The patient is a 38-year-old male with past medical history significant for type 1 diabetes mellitus. He has a fistula, it has been placed. It has yet to mature. Either way, he is on dialysis 3 days per week. It is not clear when his last episode of dialysis was. That being said, he had increasing lethargy on presentation. As a result, EMS services were dispatched to his house. He had a temperature of 91.2 and had altered mentation. As such, he was brought to the emergency department. There are no reports of recent focalizing infectious symptoms. Currently, he is wide awake and talking to me. He denies any current fevers, chills, nausea, vomiting, chest pain, shortness of breath, cough, sputum production, nausea. He has no hot, red, swollen joints, arthralgias that are new. His dialysis catheter was completely out. As such, he went to the operating room to have one replaced. He is currently on dialysis. Because of hyperkalemia, he was given some chloride, bicarb, and insulin. PAST MEDICAL HISTORY: 1. Congestive heart failure. 2. Diabetes mellitus, type 1. 3. End-stage renal disease. 4. History of right BKA. 5. CVA x2. 6. Dyslipidemia. 7. Hypertension. 8. Major depressive disorder. PAST SURGICAL HISTORY: 1. Right below-knee amputation. 2. Left fistula placement and subsequent removal. 3. Right fistula access, recent. 4. Right Vas-Cath with subsequent removal and replacement. FAMILY HISTORY: Noncontributory. SOCIAL HISTORY: He had a 10-pack year history of smoking. He uses marijuana frequently. Denies any excess alcohol use. He has no exposure to chemicals, dust, asbestos, or tuberculosis. ALLERGIES: PENICILLIN. MEDICATIONS: List of his inpatient medications was reviewed and heavily modified. REVIEW OF SYSTEMS: General, head, ears, eyes, nose, throat, cardiovascular, respiratory, GI, , musculoskeletal, neurologic, and skin is negative except as mentioned in the HPI. PHYSICAL EXAMINATION: VITAL SIGNS: Afebrile, pulse 85, blood pressure 133/75, respirations 16, saturation 99% on room air. GENERAL: The patient is awake and alert, in no apparent distress. LUNGS: Excellent air entry. There is no prolonged expiratory phase or wheezing present. HEART: Normal rate. Regular. ABDOMEN: Soft, nontender, nondistended. Bowel sounds are positive. MUSCULOSKELETAL: No cyanosis or clubbing. There is 2+ pitting in the bilateral lower extremities. NEUROLOGIC: Grossly nonfocal. LABORATORY DATA: Sodium 137, potassium 5.6, bicarb 17, anion gap 20 and downtrending, creatinine 6.07, BUN 60. Calcium 8.1. Liver function studies are otherwise unremarkable. Lactate is negative. Beta-hydroxybutyrate is barely positive at 0.9. Plasma alcohol level, acetaminophen, and salicylates are all unremarkable. IMAGIN. CT of the brain demonstrates no acute intracranial abnormality. 2. Chest x-ray demonstrates no acute cardiopulmonary abnormality. There has been subsequent removal of the right internal jugular tunneled Vas-Cath. ASSESSMENT: 1. Metabolic encephalopathy, resolved. 2. Starvation ketosis. 3. Anion gap metabolic acidosis. 4. Type 1 diabetes mellitus. 5. Hyperkalemia, likely resolved. DISCUSSION AND PLAN: The patient is undergoing dialysis. He is planned for 4 hours. After this, he can be transitioned out of the ICU to the floor, particularly if his hemodynamics and mentation are stable. Pulmonary/Critical Care will continue to follow for 24 hours, but truth be told, he will likely be stable for transition home today. We will give him his subcu dose of Lantus. After this is in, his insulin drip will be interrupted. He has a very good appetite and so I will feed him. Pulmonary/Critical Care will continue to follow for now. Job ID: [id number]
[2018-12-23] MEDS: hydrALAZINE 25 MG TAB PO SCH ×2 (16:49→20:46)
--- NOTE | 2018-12-23 17:25 | RAD ---
AP VIEW CHEST: 12/23/2018 HISTORY: Newly placed dialysis catheter. COMPARISON: Exam from earlier in the day on 12/23/2018. FINDINGS: AP view chest demonstrates multiple stents seen in the left upper extremity veins, compatible with th e patient's history of dialysis. There has been placement of a right jugular dialysis catheter, distal tip overlying the SVC. The lungs are well aerated. No evidence of active intrathoracic disease is seen. No evidence of eff usions, pneumonia, or pneumothorax is seen. IMPRESSION: 1. No evidence of pneumonia. 2. Newly placed dialysis catheter is in good position. POS: [facility]
[2018-12-23] MEDS: Sevelamer Carbonate 800 MG TAB PO SCH ×2 (19:39→19:43)
[2018-12-23] MEDS: HumaLOG 300 UNITS/3 ML VIAL SC SCH (20:47)
[2018-12-23] MEDS: Dextrose 10% in Water 1,000 ML IV SCH (20:47)
[2018-12-23] MEDS: levETIRAcetam 500 MG TAB PO SCH (20:47)
--- NOTE | 2018-12-23 23:32 | PDOC.OP ---
Operative Note - Operative Note Operative Note: PROCEDURE: Placement of right internal jugular tunneled hemodialysis catheter with ultrasound and fluoroscopic guidance. SURGEON: Nicole Chamberlain M.D. DATE OF PROCEDURE: 12/23/2018 PREOPERATIVE DIAGNOSIS: End-stage renal failure. POSTOPERATIVE DIAGNOSIS: End-stage renal failure. HISTORY: Patient of Dr. Isabel'asuncion with right upper arm cephalic fistula which has not yet matured. He had a tunneled catheter in place but pulled this out at home. A tunneled hemodialysis catheter for ongoing dialysis has been requested by the patients [employer]. PROCEDURE: After informed consent was obtained and appropriate preoperative antibiotics were administered, the patient was taken to the Operating Room, placed in the supine position and monitored anesthesia care was administered. The neck and chest were prepped and draped in a standard sterile fashion and the patient placed in Trendelenburg position. A sterile ultrasound probe was used to identify the patent compressible right IJ vein which was accessed under direct ultrasound guidance. A wire was threaded through the needle and confirmed by ultrasound to be within the patent compressible vessel with the tip in the vena cava by fluoroscopy. Local anesthesia was infused to the skin and subcutaneous tissues of the right neck and chest. An infraclavicular incision was made and a catheter tunneled from the infraclavicular to the right IJ access site. The right IJ was sequentially dilated over the wire following which a dilator and sheath were placed over the wire and the dilator and wire removed leaving the sheath in place. The catheter was tunneled through the sheath which was then split and removed leaving the catheter in place. This was confirmed by fluoroscopy to be in good position in the superior vena cava with no kinking of the course of the catheter. Both ports easily aspirated dark venous nonpulsatile blood and easily flushed without resistance. Heparin was instilled to the quantity specified on the hub, and the hub was secured to the skin with 3-0 nylon sutures. The skin incision at the neck was closed in two layers with 4-0 Monocryl suture and Dermabond dressings were placed. The skin at the exit site was snugged up around the catheter with 4-0 Monocryl suture and Dermabond was placed there as well. Once the Dermabond was dry, a Biopatch and Tegaderm dressing was placed at the exit site. The patient was taken to Recovery in good condition. Estimated blood loss was minimal. There were no complications. There were no specimens.
--- NOTE | 2018-12-24 05:38 | PDOC.FM ---
- Subjective Subjective: Mr. Brush is currently receiving dialysis treatment. Has no complaints. Unsure of what his home insulin dosing was. Says he is tolerating meals well. - Objective Vital Signs & Weight: Vital Signs (12 hours) Temp Pulse Resp BP BP Pulse Ox 12/23/18 23:30 97.6 F 89 16 126/67 96 12/23/18 20:46 97 147/73 H 12/23/18 20:28 97.4 F L 97 16 147/73 H 98 Weight Weight 71.4 kg Most Recent Monitor Data Heart Rate from ECG 93 NIBP 166/90 NIBP BP-Mean 115 Respiration from ECG 9 SpO2 99 I&O: 12/22/18 12/23/18 12/24/18 06:59 06:59 06:59 Intake Total 1350.1 Output Total 0 Balance 1350.1 Result Diagrams: 12/23/18 08:28 12/23/18 15:47 Phys Exam - Physical Examination Constitutional: NAD R IJ HD catheter Respiratory: clear to auscultation bilateral Cardiovascular: RRR Gastrointestinal: soft, non-tender Neurological: non-focal, moves all 4 limbs Psychiatric: normal affect Skin: normal turgor Dx/Plan (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 Code(s): E10.8 - TYPE 1 DIABETES MELLITUS WITH UNSPECIFIED COMPLICATIONS Status: Chronic (2) ESRD (end stage renal disease) on dialysis Code(s): N18.6 - END STAGE RENAL DISEASE; Z99.2 - DEPENDENCE ON RENAL DIALYSIS Status: Chronic (3) HLD (hyperlipidemia) Code(s): E78.5 - HYPERLIPIDEMIA, UNSPECIFIED Status: Chronic (4) Hypertension Code(s): I10 - ESSENTIAL (PRIMARY) HYPERTENSION Status: Chronic Qualifiers: Hypertension type: essential hypertension Qualified Code(s): I10 - Essential (primary) hypertension (5) Seizure Code(s): R56.9 - UNSPECIFIED CONVULSIONS Status: Chronic - Plan Plan: DKA, improving -ABG: pH 7.25, CO2 52.8, O2 105, Bicarb 22.8 -Glucose 287, Beta-hydroxybutyrate 0.9, LA 0.7 -Anion Gap of 15->14. Labs will not be drawn for today until after HD. Off insulin drip. Plan to continue current insulin orders and monitor BG throughout today. If anion gap is closed and patient doing well, could possibly d/c home today. Hypothermia, resolved -91.2 at home, 98.3 with bear hugger, likely a sequela of DKA -No apparent need for abx at this time ESRD on MWF dialysis -Dr. Gonzalez has been consulted, we will appreciate his recommendations -Hyperkalemia, borderline peaked T waves, s/p calcium gluconate and sodium bicarb - getting HD today DM1 - Will continue transition back to home insulin regimen. Currently on decreased glargine dose. - Will discuss with pt and caregiver how they give insulin, appears non- compliant vs. uneducated on importance of insulin HLD -Continue home meds HTN -Continue home meds Depression Seizures Multi drug abuse -Marijuana, hx of PCP, tobacco -Encourage cessation Addendum - Attending - Attending Attestation Date/Time: 12/24/18 3520 I personally evaluated the patient and discussed the management with Dr. Edwards. I agree with the History, Examination, Assessment and Plan documented above with any addition or exceptions noted below. Patient is seen in dialysis this morning. Yesterday he had hypoglycemia and required D10 for a period of time. Sugars are better today. Will monitor po intake and sugars. Will see how pt is feeling this afternoon and he may be able to discharge.
[2018-12-24] MEDS: HumaLOG 300 UNITS/3 ML VIAL SC PRN ×2 (05:49→21:21)
[2018-12-24] MEDS: HumaLOG 300 UNITS/3 ML VIAL SC SCH ×3 (08:40→17:35)
--- NOTE | 2018-12-24 09:39 | PRG ---
DATE OF SERVICE: 12/24/2018 SUBJECTIVE: A 38-year-old gentleman, being seen for end-stage renal disease. The patient denied nausea, vomiting, or chest pain. OBJECTIVE: CONSTITUTIONAL: On examination, the patient is awake, alert. VITAL SIGNS: Afebrile, pulse 75, breathing 16, blood pressure 126/67. GENERAL APPEARANCE AND MENTAL STATUS: Fair. HEAD/NECK: Normocephalic. Atraumatic. EYES: EOMI. No deformity. EARS: Clear. No ulcers. NOSE: Intact. No lesions. MOUTH: Clear. No discharge. THROAT: Clear. No exudate. LUNGS: Clear. No crackles. CARDIAC: S1, S2. No rub. ABDOMEN: Benign. Bowel sounds positive. GENITALIA/RECTUM: Clifton absent. BACK/EXTREMITIES: Edema 0+. NEUROLOGICAL: Alert and motor intact. SKIN: LYMPHATICS: LABORATORY DATA: Labs reviewed. ASSESSMENT AND PLAN: 1. Stage 6 chronic kidney disease, continue hemodialysis. 2. Hypertension, stable. 3. Anemia, stable. 4. Medication based on GFR as appropriate. Job ID: [id number]
[2018-12-24] MEDS: hydrALAZINE 25 MG TAB PO SCH ×3 (14:25→21:20)
[2018-12-24] MEDS: Amlodipine 10 MG TAB PO SCH (14:27)
[2018-12-24] MEDS: Insulin Glargine 12 UNITS in Pre-Filled Syringe 1 EACH SC SCH (15:00)
[2018-12-24] MEDS: Sevelamer Carbonate 800 MG TAB PO SCH ×2 (15:01→17:36)
[2018-12-24] MEDS: Cinacalcet HCl 30 MG TAB PO SCH (15:07)
[2018-12-24] MEDS: levETIRAcetam 500 MG TAB PO SCH ×2 (15:08→21:22)
--- NOTE | 2018-12-24 17:17 | PRG ---
DATE OF SERVICE: 12/24/2018 SERVICE: Pulmonary Medicine. INTERVAL HISTORY: The patient is doing outstanding from respiratory standpoint. Some low blood sugars last night, but he was asymptomatic to them. He has a good appetite. He actually feels like he is back to his usual state of health and is actually in very good spirits. PHYSICAL EXAMINATION: VITAL SIGNS: Afebrile. Pulse 89, blood pressure 126/67, respirations 16, saturation 96% on room air. GENERAL: The patient is awake and alert, in no apparent distress. LUNGS: Excellent air entry. There is no prolonged expiratory phase or wheezing appreciated. HEART: Normal rate, regular. ABDOMEN: Soft, nontender, nondistended. Bowel sounds are positive. MUSCULOSKELETAL: No cyanosis or clubbing. There is no pitting in the bilateral lower extremities. NEUROLOGIC: Grossly nonfocal. LABORATORY DATA: Blood sugar ranges from 45 to 288. Blood cultures x2 are unremarkable. IMAGING DATA: Chest x-ray demonstrates no evidence of pneumonia. Newly-placed dialysis catheter is in very good position. ASSESSMENT: 1. Type-1 diabetes mellitus. 2. Metabolic encephalopathy, resolved. 3. Starvation ketosis. 4. Anion gap metabolic acidosis, resolved. 5. Hyperkalemia, resolved. DISCUSSION AND PLAN: The patient is doing absolutely fantastic. At this point, I think that he has returned to his usual state of health. His blood sugars are little bit labile. As such, the small adjustments are being made. At this point, he has no further requirements for inpatient Pulmonary Critical Care opinion, and I will sign off. Please call with additional questions or concerns through time. Job ID: [id number]
[2018-12-24 17:31] LABS: Anion Gap 16 mmol/L (10-20); BUN (Urea Nitrogen) 11 mg/dL (8.9-20.6); Calc. Creatinine Clearance 37 mL/min (70-130); Calcium 9.3 mg/dL (7.8-10.44); Carbon Dioxide 27 mmol/L (22-29); Chloride 100 mmol/L (98-107); Estimated GFR-MDRD 32; Glucose 309 mg/dL (70-105); Potassium 4.6 mmol/L (3.5-5.1); Sodium 138 mmol/L (136-145)
[2018-12-24] MEDS: Dextrose 10% in Water 1,000 ML IV SCH (20:50)
[2018-12-25 05:27] LABS: Anion Gap 18 mmol/L (10-20); BUN (Urea Nitrogen) 21 mg/dL (8.9-20.6); Calc. Creatinine Clearance 27 mL/min (70-130); Calcium 9.3 mg/dL (7.8-10.44); Carbon Dioxide 21 mmol/L (22-29); Chloride 104 mmol/L (98-107); Estimated GFR-MDRD 22; Glucose 183 mg/dL (70-105); Potassium 4.9 mmol/L (3.5-5.1); Sodium 138 mmol/L (136-145)
--- NOTE | 2018-12-25 06:09 | PDOC.FM ---
- Subjective Subjective: Mr. Brush has had watery diarrhea. Otherwise he says he is feeling great with no complaints. Awaiting dialysis today. - Objective MAR Reviewed: Yes Vital Signs & Weight: Vital Signs (12 hours) Temp Pulse Resp BP BP Pulse Ox 12/25/18 04:26 97.8 F 85 18 136/67 97 12/25/18 00:30 97.4 F L 87 18 121/74 97 12/24/18 21:20 88 151/75 H 98 12/24/18 20:43 97.8 F 88 18 151/75 H 98 Weight Admit Weight 71.4 kg Weight 71.4 kg Most Recent Monitor Data Heart Rate from ECG 93 NIBP 166/90 NIBP BP-Mean 115 Respiration from ECG 9 SpO2 99 I&O: 12/23/18 12/24/18 12/25/18 06:59 06:59 06:59 Intake Total 1350.1 600 Output Total 0 2000 Balance 1350.1 -1400 Result Diagrams: 12/23/18 08:28 12/25/18 04:31 Phys Exam - Physical Examination Constitutional: NAD Respiratory: no wheezing, clear to auscultation bilateral Cardiovascular: RRR, no significant murmur Gastrointestinal: soft, no distention, positive bowel sounds Neurological: moves all 4 limbs Skin: cap refill <2 seconds Dx/Plan (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 Code(s): E10.8 - TYPE 1 DIABETES MELLITUS WITH UNSPECIFIED COMPLICATIONS Status: Chronic (2) ESRD (end stage renal disease) on dialysis Code(s): N18.6 - END STAGE RENAL DISEASE; Z99.2 - DEPENDENCE ON RENAL DIALYSIS Status: Chronic (3) HLD (hyperlipidemia) Code(s): E78.5 - HYPERLIPIDEMIA, UNSPECIFIED Status: Chronic (4) Hypertension Code(s): I10 - ESSENTIAL (PRIMARY) HYPERTENSION Status: Chronic Qualifiers: Hypertension type: essential hypertension Qualified Code(s): I10 - Essential (primary) hypertension (5) Seizure Code(s): R56.9 - UNSPECIFIED CONVULSIONS Status: Chronic - Plan Plan: DKA, improved -Anion Gap of 15->14->13 - BG 106-309 over past 24 hrs. Did not get glargine yesterday but got 10 u short acting - pt says mother does his insulin for him at home. ESRD on MWF dialysis -Dr. Gonzalez has been consulted, to get dialysis today -Hyperkalemia, borderline peaked T waves, s/p calcium gluconate and sodium bicarb on admission. DM1 - Will continue transition back to home insulin regimen - appears non-compliant vs. uneducated on importance of insulin Diarrhea - c diff negative - imodium ordered, says he takes this at home Hypothermia, resolved -91.2 at home, 98.3 with bear hugger, likely a sequela of DKA -No apparent need for abx at this time HLD -Continue home meds HTN -Continue home meds Depression Seizures Multi drug abuse -Marijuana, hx of PCP, tobacco -Encourage cessation Dispo: d/c home today after dialysis Addendum - Attending - Attending Attestation Date/Time: 12/25/18 7903 I personally evaluated the patient and discussed the management with Dr. Edwards. I agree with the History, Examination, Assessment and Plan documented above with any addition or exceptions noted below. The patient is feeling much better. He was sitting up eating a banana and is wanting to go home.
[2018-12-25] MEDS: HumaLOG 300 UNITS/3 ML VIAL SC SCH ×3 (08:29→18:43)
[2018-12-25] MEDS: Insulin Glargine 12 UNITS in Pre-Filled Syringe 1 EACH SC SCH (08:29)
[2018-12-25] MEDS: Sevelamer Carbonate 800 MG TAB PO SCH ×2 (08:31→12:05)
[2018-12-25] MEDS: hydrALAZINE 25 MG TAB PO SCH ×2 (08:33→15:12)
[2018-12-25] MEDS: levETIRAcetam 500 MG TAB PO SCH (08:33)
[2018-12-25] MEDS: Amlodipine 10 MG TAB PO SCH (08:33)
[2018-12-25] MEDS: Cinacalcet HCl 30 MG TAB PO SCH (08:33)
[2018-12-25] MEDS: Loperamide HCl 2 MG CAP PO PRN ×2 (10:29→12:05)
--- NOTE | 2018-12-25 11:28 | PRG ---
DATE OF SERVICE: 12/25/2018 SUBJECTIVE: This is a 38-year-old gentleman, being seen for end-stage renal disease. The patient denied nausea, vomiting, or chest pain. OBJECTIVE: CONSTITUTIONAL: On examination, the patient is awake, alert. VITAL SIGNS: Afebrile, pulse 89, breathing 16, blood pressure 170/61. GENERAL APPEARANCE AND MENTAL STATUS: Fair. HEAD/NECK: Normocephalic. Atraumatic. EYES: EOMI. No deformity. EARS: Clear. No ulcers. NOSE: Intact. No lesions. MOUTH: Clear. No discharge. THROAT: Clear. No exudate. LUNGS: Clear. No crackles. CARDIAC: S1, S2. No rub. ABDOMEN: Benign. Bowel sounds positive. GENITALIA/RECTUM: Clifton absent. BACK/EXTREMITIES: Edema 0+. NEUROLOGICAL: Alert and motor intact. SKIN: LYMPHATICS: LABORATORY DATA: Labs showed potassium 4.9. ASSESSMENT AND PLAN: 1. Stage 6 chronic kidney disease, plan dialysis due to edema. 2. Hypertension, stable. 3. Anemia, stable. 4. Medication based on GFR as appropriate. 5. Noncompliance with diet was discussed with the patient. Job ID: [id number]
[2018-12-25 17:10] VITALS: BP 99/58; TEMP 97.4
[2018-12-25] MEDS: HumaLOG 300 UNITS/3 ML VIAL SC PRN (18:43)
--- NOTE | 2018-12-26 13:48 | DIS ---
DATE OF ADMISSION: 12/23/2018 DATE OF DISCHARGE: 12/25/2018 RESIDENT: Terra Edwards DO ADMITTING ATTENDING: Juliet Stroud MD DISCHARGE ATTENDING: Juliet Stroud MD CONSULTS: 1. General Surgery, Dr. Chamberlain. 2. Nephrology, Dr. Gonzalez. 3. Pulmonology, Dr. Carrasquillo. PROCEDURES: On 12/23/2018, the patient underwent placement of right internal jugular tunneled hemodialysis catheter with ultrasound and fluoroscopic guidance by Dr. Chamberlain. PRIMARY DIAGNOSES: 1. Diabetic ketoacidosis. 2. Hypothermia. 3. Hyperkalemia. SECONDARY DIAGNOSES: 1. End-stage renal disease, on Monday, Monday, and Monday dialysis. 2. Type 1 diabetes. 3. Diarrhea. 4. Hypertension. 5. Hyperlipidemia. 6. Depression. 7. Seizures. 8. Multi-drug abuse. DISCHARGE MEDICATIONS: 1. Renvela 800 mg three tablets p.o. t.i.d. with meals. 2. Cinacalcet 60 mg p.o. daily. 3. Hydralazine 25 mg p.o. t.i.d. 4. Amlodipine 10 mg p.o. daily. 5. Sertraline 25 mg p.o. daily. 6. Humalog 3 units subcu t.i.d. with meals. 7. Keppra 500 mg p.o. b.i.d. 8. Insulin glargine 12 units subcu q.a.m. 9. Tylenol 650 mg p.o. q.4 hours p.r.n. Discontinued medications, none. HISTORY OF PRESENT ILLNESS: A 38-year-old male presented to the ED for lethargy as well as the patient dialysis catheter had come out. He denied fever, nausea, vomiting, chest pain, shortness of breath, or abdominal pain. He reports that his mother manages his insulin and is unsure of his current dosing. The patient was admitted with DKA, beta-hydroxybutyrate of 0.9, glucose 287. DKA protocol was initiated with expectation of quick response as it appeared to be mild DKA. Hypothermia was noted in the ED with temperature of 91.2, which improved with Grabiel Hugger in the ED. This was likely a sequelae of the DKA. The patient was found to be hyperkalemic with borderline peaked T-waves. He received calcium gluconate and sodium bicarb in the ED for this. The patient got a new dialysis catheter placed by Dr. Chamberlain. His blood glucose control improved and was weaned off the DKA protocol after his anion gap closed. His blood glucoses were a little bit labile throughout hospitalization, and slow adjustments were made. The patient was discharged on home insulin regimen with no changes. Additionally, he did receive dialysis treatments while in the inpatient setting. DISPOSITION: Stable. DISCHARGE INSTRUCTIONS: 1. Location: Home. 2. Diet: Renal and consistent carb. 3. Activity: As tolerated. 4. Followup: Follow up with PCP, Mela Hardwick at [facility] in 1 week. Job ID: [id number]
== END 2018-12-25 19:04 | disposition home or self-care (01) | DRG 637 ==
LOC: ERS 07:56 → CCU 11:08 → ONC 20:22 → UNDODISIN 12-25 14:51
PROVIDERS: ADMIT Family Medicine; ATTEND Family Medicine
PROC: 0JH63XZ Insertion of Tunneled Vascular Access Device into Chest Subcutaneous Tissue and Fascia, Percutaneous Approach (ICD-10-PCS; principal; 2018-12-23)
PROC: 02HV33Z Insertion of Infusion Device into Superior Vena Cava, Percutaneous Approach (ICD-10-PCS; 2018-12-23)
PROC: B518ZZA Fluoroscopy of Superior Vena Cava, Guidance (ICD-10-PCS; 2018-12-23)
PROC: B548ZZA Ultrasonography of Superior Vena Cava, Guidance (ICD-10-PCS; 2018-12-23)
DX: E10.10 Type 1 diabetes mellitus with ketoacidosis without coma (principal); N18.6 End stage renal disease; G93.41 Metabolic encephalopathy; T82.41XA Breakdown (mechanical) of vascular dialysis catheter, initial encounter; I13.0 Hypertensive heart and chronic kidney disease with heart failure and stage 1 through stage 4 chronic kidney disease, or unspecified chronic kidney disease; I50.32 Chronic diastolic (congestive) heart failure; E10.22 Type 1 diabetes mellitus with diabetic chronic kidney disease; F32.9 Major depressive disorder, single episode, unspecified; E87.5 Hyperkalemia; T68.XXXA Hypothermia, initial encounter; F41.9 Anxiety disorder, unspecified; E78.5 Hyperlipidemia, unspecified; R56.9 Unspecified convulsions; D64.9 Anemia, unspecified; Z88.0 Allergy status to penicillin; Z89.511 Acquired absence of right leg below knee; Z99.2 Dependence on renal dialysis; Z87.891 Personal history of nicotine dependence; Z86.73 Personal history of transient ischemic attack (TIA), and cerebral infarction without residual deficits; Z91.11 Patient's noncompliance with dietary regimen; Y84.1 Kidney dialysis as the cause of abnormal reaction of the patient, or of later complication, without mention of misadventure at the time of the procedure
CPT/HCPCS: 36415; 36416; 36901; 70450; 71045; 80048; 80053; 80307; 82010; 82550; 82805; 83605; 84484; 85025; 87040; 87045; 87046; 87077; 87324; 87449; 87493; 87899; 90935; 93005; 94760; C1752; G0257; J1644; J1815; J1825; J1956; J2001; J2250; J2704; J3010; J7050

== ENCOUNTER 2019-02-06 11:04 | Emergency (ER) | payer MEDICARE, MEDICAID ==
[2019-02-06 11:59] LABS: #Eosinphils 0.2 thou/uL (0.0-0.7); #Lymphocytes 1.9 thou/uL (1.20-3.40); #Neutrophils 5.4 thou/uL (1.40-6.50); %Basophils 0.5 % (0.0-1.0); %Eosinophils 1.8 % (0.0-10.0); %Monocytes 11.6 % (0.0-10.0); Hemoglobin 11.8 g/dL (14.0-18.0); Mean Corpuscular HGB CONC 32.4 g/dL (32.0-36.0); Mean Corpuscular Hemoglobin 28.5 pg (27.0-31.0); Mean Corpuscular Volume 87.9 fL (78.0-98.0); Platelet Count 182 thou/uL (130-400); RBC Distribution Width 15.3 % (11.5-14.5); Red Blood Cell (RBC) Count 4.13 mill/uL (4.70-6.10); White Blood Cell (WBC) Count 8.4 thou/uL (4.8-10.8)
[2019-02-06 12:18] LABS: ALT (SGPT) 8 U/L (8-55); AST (SGOT) 9 U/L (5-34); Albumin 3.5 g/dL (3.5-5.0); Alkaline Phosphatase 150 U/L (40-150); Anion Gap 25 mmol/L (10-20); BUN (Urea Nitrogen) 116 mg/dL (8.9-20.6); Bilirubin, Total 0.4 mg/dL (0.2-1.2); Calc. Creatinine Clearance 0 mL/min (70-130); Calcium 8.9 mg/dL (7.8-10.44); Carbon Dioxide 17 mmol/L (22-29); Chloride 95 mmol/L (98-107); Estimated GFR-MDRD 5; Globulin 3.5 g/dL (2.4-3.5); Glucose 141 mg/dL (70-105); Phosphorus 8.6 mg/dL (2.3-4.7); Sodium 129 mmol/L (136-145)
[2019-02-06 12:24] LABS: Potassium 7.7 mmol/L (3.5-5.1)
== END 2019-02-06 19:55 | disposition home or self-care (01) ==
LOC: ERS 11:04
DX: E87.5 Hyperkalemia (principal); I13.2 Hypertensive heart and chronic kidney disease with heart failure and with stage 5 chronic kidney disease, or end stage renal disease; I50.9 Heart failure, unspecified; N18.6 End stage renal disease; E10.22 Type 1 diabetes mellitus with diabetic chronic kidney disease; E78.5 Hyperlipidemia, unspecified; F17.210 Nicotine dependence, cigarettes, uncomplicated; Z79.899 Other long term (current) drug therapy
CPT/HCPCS: 36416; 80053; 83735; 84100; 84484; 85025; 93005; J1644

== ENCOUNTER 2019-02-23 07:56 | Inpatient (IN) | payer MEDICARE, MEDICAID ==
[2019-02-23] MEDS ORDERED: Insulin Regular 300 UNITS/3 ML VIAL ONE (08:45)
[2019-02-23] MEDS ORDERED: Sodium Bicarb 50 MEQ/50 ML VIAL ONE (08:45)
[2019-02-23] MEDS ORDERED: HUMULIN R 100 UNITS in Sodium Chloride 0.9% 99 ML IVPB SCH (09:00)
--- NOTE | 2019-02-23 09:01 | RAD ---
AP view chest. HISTORY: Altered mental status. AP view chest demonstrates multiple left subclavian endovascular stents. A right jugular dialysis catheter is seen. The lungs are well aerated. No evidence of active intrathoracic disease seen. No evidence of effusions, pneumonia or pneumothorax seen IMPRESSION: Unremarkable AP view chest.
[2019-02-23 09:29] LABS: #Eosinphils 0.1 thou/uL (0.0-0.7); #Lymphocytes 1.1 thou/uL (1.20-3.40); #Monocytes 0.4 thou/uL (0.11-0.59); #Neutrophils 6.1 thou/uL (1.40-6.50); %Basophils 0.4 % (0.0-1.0); %Eosinophils 0.8 % (0.0-10.0); %Lymphocytes 14.7 % (21.0-51.0); %Monocytes 5.2 % (0.0-10.0); %Neutrophils 78.9 % (42.0-75.0); Hemoglobin 11.5 g/dL (14.0-18.0); Mean Corpuscular Hemoglobin 29.4 pg (27.0-31.0); Mean Corpuscular Volume 91.9 fL (78.0-98.0); Mean Platelet Volume 11.6 fL (7.4-10.4); Platelet Count 133 thou/uL (130-400); RBC Distribution Width 15.6 % (11.5-14.5); Red Blood Cell (RBC) Count 3.89 mill/uL (4.70-6.10); White Blood Cell (WBC) Count 7.8 thou/uL (4.8-10.8)
[2019-02-23 09:34] LABS: Base Excess-Venous -11.2 mmol/L (-2.0 to 3.0); Bicarbonate (HCO3v) 14.8 mmol/L (22.0-28.0); CO2 Tension (PvCO2) 33.1 mmHg (40.0-50.0); Calcium, Ionized 1.02 mmol/L (See Comments:); Chloride 108 mmol/L (98-107); Hemoglobin - Calc 11.9 g/dL (14.0-18.0); O2 Tension (PvO2) 156.8 mmHg (35.0-45.0); Potassium 8.9 mmol/L (3.5-5.1); Sodium 136 mmol/L (138-145); T. Carbon Dioxide 15.8 mmol/L (22.0-28.0); pH (Venous) 7.259 (7.320-7.430); vO2 Saturation-calc 99.1 % (60.0-85.0)
--- NOTE | 2019-02-23 09:42 | CT ---
Exam: CT brain PROVIDED CLINICAL HISTORY: Altered mental status COMPARISON: 12/23/2018 FINDINGS: The ventricular system is normal in size and morphology. No evidence for intracranial hemorrhage or mass effect. The extracranial soft tissues and osseous structures demonstrate an unremarkable CT appearance. IMPRESSION: No evidence for intracranial hemorrhage or mass effect.
[2019-02-23 09:43] LABS: ALT (SGPT) 12 U/L (8-55); AST (SGOT) 12 U/L (5-34); Alkaline Phosphatase 161 U/L (40-150); Anion Gap 32 mmol/L (10-20); Bilirubin, Total 0.4 mg/dL (0.2-1.2); Calc. Creatinine Clearance 0 mL/min (70-130); Calcium 9.7 mg/dL (7.8-10.44); Carbon Dioxide 11 mmol/L (22-29); Chloride 99 mmol/L (98-107); Estimated GFR-MDRD 5; Globulin 3.9 g/dL (2.4-3.5); Lipase 48 U/L (8-78); Magnesium 2.9 mg/dL (1.6-2.6); Protein, Total 7.9 g/dL (6.0-8.3); Sodium 133 mmol/L (136-145)
--- NOTE | 2019-02-23 09:43 | CT ---
CT cervical spine. HISTORY: Fall. No evidence of acute cervical spine fractures, subluxations or bony lesions seen. Calcifications seen in the right and left carotid bulbs. IMPRESSION: no evidence of acute cervical spine fractures.
[2019-02-23 09:48] LABS: Glucose 557 mg/dL (70-105); Potassium 9.1 mmol/L (3.5-5.1)
[2019-02-23 09:51] LABS: Acetaminophen Less than 6.0 mcg/mL (10.0-30.0); Alcohol Less than 10 mg/dL (Less than 10); Salicylate Less than 8.0 mg/dL (15.0-30.0)
[2019-02-23 10:01] LABS: BUN (Urea Nitrogen) 147 mg/dL (8.9-20.6)
[2019-02-23 10:02] LABS: Phosphorus 10.5 mg/dL (2.3-4.7)
--- NOTE | 2019-02-23 10:34 | PDOC.FPRHP ---
- History of Present Illness Chief Complaint: found down History of Present Illness: Mr. Brush is a 38 yo M with ESRD on MWF HD, type 1 DM found down by family in his bathroom. He is well known to our service for noncompliance with insulin and hemoialysis appointments. He is not a great historian is unable to recall events of this morning. Reported missing dialysis session yesterday due to diarrhea. No nausea or vomiting. No abd pain. Endorses taking his insulin this morning. In the ED CT head and neck were neg for trauma/fractures. He was hyperglycemic in the 500s with acidosis and hyperkalemia at 9.[address] Gonzalez was consulted who plans for urgent hemodialysis. - Allergies/Adverse Reactions Allergies Allergy/AdvReac Type Severity Reaction Status Date / Time Penicillins Allergy Unknown Verified 12/23/18 12:13 - Home Medications Medication Instructions Recorded Confirmed Type Sevelamer Carbonate [Renvela] 2,400 mg PO TID-WM 09/08/15 02/23/19 History Amlodipine Besylate [amLODIPine 10 mg PO DAILY 09/02/16 02/23/19 History Besylate] Cinacalcet HCl [Sensipar] 60 mg PO DAILY 09/02/16 12/23/18 History hydrALAZINE [Apresoline] 25 mg PO TID 09/02/16 02/23/19 History Sertraline HCl 25 mg PO DAILY 03/03/17 02/23/19 History HumaLOG [HumaLOG Vial] 3 units SC TID-WM vial 06/04/18 12/23/18 Rx Insulin Glargine [Lantus Vial] 12 units SC QAM 30 Days #1 vial 06/04/18 Rx levETIRAcetam [Keppra] 500 mg PO BID #60 tab 06/04/18 02/23/19 Rx HumaLOG [HumaLOG Vial] 0 unit SC TID-WM PRN 09/17/18 12/23/18 History Acetaminophen [Tylenol Regular 650 mg PO Q4H PRN tab 09/27/18 02/23/19 Rx Strength] Aspirin [Aspirin EC] 81 mg PO DAILY 02/23/19 02/23/19 History - History PMHx: CHF, DM1, ESRD on MWF dialysis, Right BKA, CVAx2, HLD, HTN, Depression PSHx: Rt BKA, L fistula reomved, Right fisual recently placed, right vasc cath ( subclavian) FHx: n/c Social:10 year smoking history, endorses marijuana and PCP use - Review of Systems ROS unobtainable: due to mental status General: denies: fever/chills, weight/appetite/sleep changes Cardiovascular: denies: chest pain Gastrointestinal: reports: diarrhea. denies: nausea, vomiting, abdominal pain Musculoskeletal: denies: pain, tenderness - Vital signs BP: [164/91] HR: [83] RR: [18] Tmax: [unable to obtain] Pox: [100]% on [room air] Wt: [77kg] - Physical Exam Constitutional: NAD -Constitutional: lethargic HEENT: normocephalic and atraumatic, PERRLA, EOMI, conjunctiva clear -HEENT: frosted facies Neck: supple, FROM, trachea midline Heart: RRR, normal S1/S2 Lungs: CTAB, no respiratory distress Abdomen: soft, non-tender -Musculoskeletal: right lower extremity amputation Neurological: CN II-XII intact Skin: no rash/lesions Heme/Lymphatic: no unusual bruising or bleeding, no petechia -Psychiatric: poor recent/remote memory FMR H&P: Results - Labs Result Diagrams: 02/23/19 08:52 02/23/19 20:05 Lab results: WBC 7.8 thou/uL (4.8-10.8) 02/23/19 08:52 Hgb 11.5 g/dL (14.0-18.0) L 02/23/19 08:52 Hct 35.8 % (42.0-52.0) L 02/23/19 08:52 MCV 91.9 fL (78.0-98.0) 02/23/19 08:52 Plt Count 133 thou/uL (130-400) 02/23/19 08:52 Neutrophils % 78.9 % (42.0-75.0) H 02/23/19 08:52 VBG pCO2 33.1 mmHg (40.0-50.0) L 02/23/19 09:28 VBG pO2 156.8 mmHg (35.0-45.0) H 02/23/19 09:28 Sodium 133 mmol/L (136-145) L 02/23/19 08:52 Potassium 9.1 mmol/L (3.5-5.1) H* 02/23/19 08:52 Chloride 99 mmol/L (98-107) 02/23/19 08:52 Carbon Dioxide 11 mmol/L (22-29) L 02/23/19 08:52 BUN 147 mg/dL (8.9-20.6) H 02/23/19 08:52 Creatinine 14.41 mg/dL (0.7-1.3) H 02/23/19 08:52 Glucose 557 mg/dL (70-105) H* 02/23/19 08:52 Calcium 9.7 mg/dL (7.8-10.44) 02/23/19 08:52 Total Bilirubin 0.4 mg/dL (0.2-1.2) 02/23/19 08:52 AST 12 U/L (5-34) 02/23/19 08:52 ALT 12 U/L (8-55) 02/23/19 08:52 Alkaline Phosphatase 161 U/L (40-150) H 02/23/19 08:52 Serum Total Protein 7.9 g/dL (6.0-8.3) 02/23/19 08:52 Albumin 4.0 g/dL (3.5-5.0) 02/23/19 08:52 Lipase 48 U/L (8-78) 02/23/19 08:52 - EKG Interpretation EKG: peaked T waves - Radiology Interpretation Chest x-ray Status: report reviewed by me Additional comment: unrmk CT scan - head Additional comment: no intracranial hemorrhage Other Status: report reviewed by me Additional comment: c spine- no fx FMR H&P: A/P - Problem List (1) Hyperkalemia Current Visit: Yes Status: Acute Code(s): E87.5 - HYPERKALEMIA (2) DKA (diabetic ketoacidoses) Current Visit: No Status: Resolved Code(s): E13.10 - OTH DIABETES MELLITUS WITH KETOACIDOSIS WITHOUT COMA (3) Metabolic encephalopathy Current Visit: Yes Status: Acute Code(s): G93.41 - METABOLIC ENCEPHALOPATHY (4) Uremia Current Visit: Yes Status: Acute Code(s): N19 - UNSPECIFIED KIDNEY FAILURE (5) Diabetes mellitus type 1 Current Visit: No Status: Chronic Code(s): E10.9 - TYPE 1 DIABETES MELLITUS WITHOUT COMPLICATIONS (6) Drug abuse, phencyclidine Current Visit: No Status: Chronic Code(s): F16.10 - HALLUCINOGEN ABUSE, UNCOMPLICATED (7) ESRD (end stage renal disease) on dialysis Current Visit: No Status: Chronic Code(s): N18.6 - END STAGE RENAL DISEASE; Z99.2 - DEPENDENCE ON RENAL DIALYSIS (8) HLD (hyperlipidemia) Current Visit: No Status: Chronic Code(s): E78.5 - HYPERLIPIDEMIA, UNSPECIFIED (9) Non-compliance with renal dialysis Current Visit: No Status: Chronic Code(s): Z91.15 - PATIENT'S NONCOMPLIANCE WITH RENAL DIALYSIS (10) Polysubstance abuse Current Visit: No Status: Chronic Priority: Low Code(s): F19.10 - OTHER PSYCHOACTIVE SUBSTANCE ABUSE, UNCOMPLICATED (11) Tobacco abuse Current Visit: No Status: Chronic Code(s): Z72.0 - TOBACCO USE - Plan Acute metabolic encephalopathy -likely 2/2 uremia, DKA -expect to resolve with resolution of DKA and dialysis Diabetic ketoacidosis -glucose 500s, pH 7.2, serum ketones, AG 32 -likely 2/2 noncompliance -will start on insulin drip, NPO, BMP q4hrs -no insulin protocol since patient is ESRD, do not want to fluid overload -accuchecks q1hr -when gap closes and glucose <200, can start bridging to subQ insulin, plan to give tonight -insulin protocol for electrolyte replacement -will admit to IMCU Acute hyperkalemia w/ cardiac changes -K 9.1, peaked T waves on EKG -s/p insulin, CaCl, bicarb in ED -Dr. Gonzalez consulted, urgent dialysis -continue tele monitoring AG Met acidosis -AG 32 -likley 2/2 DKA and uremia -rpt BMPs -see plan above ESRD on MWF HD -Cr 14 -Kr. Gonzalez on board, continue with HD -continue sevelamer Polysubstance abuse -PCP and marijuana -will apprise counselor on cessation Anemia of ESRD -stable, continue monitoring Anxiety/Depression -continue home sertraline HTN -continue home amlodipine and hydralzine dvt ppx: lovenox lines: Right femoral central line dispo: >2 midnights code: full PCP: Arlen Discussed with Dr. Stroud FMR H&P: Upper Level - Pertinent history 38 y/o M w/ PMHx of IDDM, ESRD, polysubstance abuse, and non-compliance presents to the ER via EMS s/p being found down on the floor after a fall from the toilet earlier this morning by his family. Reportedly was at baseline mentation then became unresponsive. Pt did not get dialysis yesterday 2/2 having diarrhea. Does report recent marijuana and PCP use last night. BG en route was found to be 560. Pt back to baseline mentation A&Ox4 en route to ER. In the ER was found to have elevated K to 9.1 and was given 1 gram of calcium gluconate. ABG obtained showing pH 7.259/33.1/156/14.8/-11.2 and was given an amp of bicarb. BUN/Cr found to be 147/14.41. Dr. Gonzalez of nephrology was consulted from the ER for urgent dialysis. - Pertinent findings Vitals per Post Production Assistant Note WBC - 7.8 Hgb - 11.5 Hct - 35.8 Plt - 133 Na - 133 K - 9.1 CO2 - 11 Chl - 99 BUN - 147 Cr - 14.41 Gluc - 557 Mg - 2.9 Phos - 10.5 B-hb - 2.77 VBG pH - 7.259 CO2 - 33.1 O2 - 156 HCO3 - 14.8 Base Excess - -11.2 CT-Brain - NAD CXR - NAD Trop - <0.01 EKG - NSR rate 93 BPM, Peaked T-waved noted PE: GEN: Laying in bed NAD, in C-collar CARD: RRR, no mumur noted PULM: CTA-b/l - Plan Date/Time: 02/23/19 1015 I, B. Logan Jiang MD, have evaluated this patient and agree with findings/plan as outlined by qa intern resident. Pertinent changes/additions are listed here. 38 y/o M w/: 1) Metabolic Encephalopathy likely 2/2 Uremia - Pt w/ transient episode of altered mental status now back to baseline. Likely 2/2 significant uremia from missing dialysis and subsequent electrolyte abnormalities noted on labs - Nephrology consulted from the ER for urgent dialysis to correct his metabolic derrangements - Will continue to monitor electrolytes w/ repeat BMP later on this afternoon s/ p dialysis to ensure lytes have been corrected 2) Diabetic Ketoacidosis - Overall appears to be fairly mild w/ beta-hydroxybutyrate only at 2.77 - Pt states he has been taking his insulin. Unsure if this is true non- compliance as pt is usually relatively forthcoming when he does not take his medications from prior admissions - Could all be secondary to #1 and not true DKA but at this time cannot definitively rule out - Will keep pt NPO and start DKA protocol w/ insulin gtt in the ICU. Pt will likely not need to be on this very long as dialysis will likely resolve his acidemia and his DKA otherwise appears to be relatively mild. 3) Hyperkalemia - Likely 2/2 #1 - Pt w/ peaked T-waves on EKG, given calcium gluconate down in the ER for stabilization of the myocardium and will be getting insulin in setting of #2 - Going for urgent dialysis per nephro - Will cont. to monitor on telemetry - Repeat BMP s/p dialysis to ensure resolution 4) Other chronic medical problems per qa intern note Addendum - Attending - Attending Attestation Date/Time: 02/23/19 4283 I personally evaluated the patient and discussed the management with Dr. Dalton. I agree with the History, Examination, Assessment and Plan documented above with any addition or exceptions noted below. The patient was brought in by ems after being found down in the bathroom. He has missed dialysis and his insulin. Pt is in DKA and has metabolic encephalopathy. Dr. Gonzalez has been consulted and will do emergent dialysis. Pt is being admitted to the ICU. Will continue DKA protocol but anticipate this will resolve with dialysis.
[2019-02-23] MEDS ORDERED: Calcium Gluc 4.6 MEQ/10 ML (100 MG/ML) ONE (12:09)
[2019-02-23] MEDS ORDERED: CCU Electrolyte Replacement 1 EACH IVPB SCH (12:38)
[2019-02-23] MEDS ORDERED: D5 1/2 NS w/20 mEq KCL 1,000 ML IV PRN (12:38)
[2019-02-23] MEDS ORDERED: NS 0.9% w/ 20 MEQ KCL 1,000 ML IV PRN ×2 (12:38)
[2019-02-23] MEDS ORDERED: Dextrose 5 %-0.45 % NaCl 1,000 ML IV PRN (12:38)
[2019-02-23] MEDS ORDERED: Sodium Chloride 0.9% 1,000 ML IV PRN ×4 (12:38)
[2019-02-23] MEDS ORDERED: Magnesium Oxide 400 MG TAB PO PRN ×2 (12:43)
[2019-02-23] MEDS ORDERED: Potassium Phosphate 15 MMOL in Sodium Chloride 0.9% 250 ML 250 ML IV PRN (12:43)
[2019-02-23] MEDS ORDERED: Magnesium 2 GM/50 ML 2 GM in Premix Bag 1 BAG IVPB PRN (12:43)
[2019-02-23] MEDS ORDERED: Potassium Phosphate 9 MMOL in Sodium Chloride 0.9% 100 ML IVPB PRN (12:43)
[2019-02-23] MEDS ORDERED: Potassium Chloride 40 MEQ in Premix Bag 1 BAG IVPB PRN (12:43)
[2019-02-23] MEDS ORDERED: Potassium Chloride 40 MEQ in Sodium Chloride 0.9% 250 ML 250 ML IVPB PRN (12:43)
[2019-02-23] MEDS ORDERED: Potassium Chloride 20 MEQ TAB PO PRN (12:43)
[2019-02-23] MEDS ORDERED: PHOS-NAK 1 PKT PACK PO PRN ×2 (12:43)
[2019-02-23] MEDS ORDERED: Potassium Phosphate 12 MMOL in Sodium Chloride 0.9% 250 ML 250 ML IV PRN (12:43)
[2019-02-23] MEDS ORDERED: HUMULIN R 100 UNITS in Sodium Chloride 0.9% 100 ML IVPB SCH (12:45)
[2019-02-23 13:21] LABS: Anion Gap 31 mmol/L (10-20); Calc. Creatinine Clearance 0 mL/min (70-130); Calcium 9.4 mg/dL (7.8-10.44); Carbon Dioxide 14 mmol/L (22-29); Chloride 99 mmol/L (98-107); Estimated GFR-MDRD 5; Glucose 507 mg/dL (70-105); Sodium 136 mmol/L (136-145)
[2019-02-23 13:26] LABS: Troponin I Less than 0.010 ng/mL (< 0.028)
[2019-02-23 13:33] LABS: BUN (Urea Nitrogen) 140 mg/dL (8.9-20.6)
[2019-02-23 13:39] LABS: Potassium 8.2 mmol/L (3.5-5.1)
[2019-02-23] MEDS: Heparin 5,000 UNITS/ML VIAL SC SCH ×2 (15:57→20:44)
[2019-02-23 16:51] LABS: Anion Gap 20 mmol/L (10-20); BUN (Urea Nitrogen) 42 mg/dL (8.9-20.6); Calc. Creatinine Clearance 0 mL/min (70-130); Calcium 9.2 mg/dL (7.8-10.44); Carbon Dioxide 26 mmol/L (22-29); Chloride 98 mmol/L (98-107); Estimated GFR-MDRD 15; Glucose 112 mg/dL (70-105); Potassium 4.2 mmol/L (3.5-5.1); Sodium 140 mmol/L (136-145)
[2019-02-23 16:56] LABS: Troponin I Less than 0.010 ng/mL (< 0.028)
[2019-02-23] MEDS ORDERED: Dextrose 5% in Water 1,000 ML IV PRN (18:04)
[2019-02-23] MEDS ORDERED: Dextrose 50% Abboject 50 ML SYRINGE SLOW IVP PRN (18:04)
[2019-02-23 18:30] LABS: Anion Gap 21 mmol/L (10-20); BUN (Urea Nitrogen) 48 mg/dL (8.9-20.6); Calc. Creatinine Clearance 18 mL/min (70-130); Calcium 9.4 mg/dL (7.8-10.44); Carbon Dioxide 25 mmol/L (22-29); Chloride 98 mmol/L (98-107); Estimated GFR-MDRD 12; Glucose 123 mg/dL (70-105); Potassium 4.7 mmol/L (3.5-5.1); Sodium 139 mmol/L (136-145)
--- NOTE | 2019-02-23 19:45 | CON ---
DATE OF CONSULTATION: REASON FOR CONSULTATION: Hyperkalemia. HISTORY OF PRESENT ILLNESS: This is a 38-year-old noncompliant gentleman, presented to the hospital with potassium of 9. The patient admits dialysis and is noncompliant with fluid as well as dialysis treatment. The patient denies chest pain, orthopnea, or PND. PAST MEDICAL HISTORY: Hypertension, anemia, ESRD, history of anemia, history of secondary hyperparathyroidism, history of amputation, history of BKA, history of AV fistula tunneled dialysis catheter. SOCIOECONOMIC HISTORY: No alcohol or tobacco use. History of drug use. FAMILY HISTORY: Negative for ESRD. ALLERGIES: REVIEWED. REVIEW OF SYSTEMS: A 15-point review of system was performed, negative except what was noted above. GENERAL: HEAD: NECK: No swelling or lumps. NOSE: No epistaxis or discharge. EYES: No diplopia or pain. RESPIRATORY: CARDIOVASCULAR: GASTROINTESTINAL: /RN PAIN MANAGEMENT: MUSCULOSKELETAL: No joint pain. NEUROPSYCHIATRIC SYSTEMS: No suicidal ideation. No ideation. SKIN: Denies any rash or ulcer. CONSTITUTIONAL: No fever or chills. PHYSICAL EXAMINATION: GENERAL: The patient is awake and alert. VITAL SIGNS: Afebrile, pulse 70, breathing 16, and blood pressure 130/80. GENERAL APPEARANCE AND MENTAL STATUS: Fair. HEAD/NECK: Normocephalic. Atraumatic. EYES: EOMI. No deformity. EARS: Clear. No ulcers. NOSE: Intact. No lesions. MOUTH: Clear. No discharge. THROAT: Clear. No exudate. LUNGS: Clear. No crackles. CARDIAC: S1, S2. No rub. ABDOMEN: Benign. Bowel sounds positive. GENITALIA/RECTUM: Clifton absent. BACK/EXTREMITIES: Edema 0+. NEUROLOGICAL: Alert and motor intact. SKIN: LYMPHATICS: LABORATORY DATA: Reviewed. ASSESSMENT AND PLAN: 1. Stage 6 chronic kidney disease with hyperkalemia. Plan dialysis. 2. Hyperkalemia. Plan dialysis. 3. Uremia. Plan dialysis. Overall prognosis is poor. DKA management per primary team. Job ID: [id number]
[2019-02-23] MEDS: hydrALAZINE 25 MG TAB PO SCH (20:45)
[2019-02-23] MEDS: levETIRAcetam 500 MG TAB PO SCH (20:47)
[2019-02-23 20:59] LABS: Anion Gap 18 mmol/L (10-20); BUN (Urea Nitrogen) 51 mg/dL (8.9-20.6); Calc. Creatinine Clearance 16 mL/min (70-130); Calcium 8.8 mg/dL (7.8-10.44); Carbon Dioxide 28 mmol/L (22-29); Chloride 97 mmol/L (98-107); Estimated GFR-MDRD 11; Glucose 184 mg/dL (70-105)
[2019-02-23 21:01] LABS: Sodium 138 mmol/L (136-145)
[2019-02-23 22:45] LABS: Anion Gap 16 mmol/L (10-20); BUN (Urea Nitrogen) 53 mg/dL (8.9-20.6); Calc. Creatinine Clearance 16 mL/min (70-130); Calcium 8.8 mg/dL (7.8-10.44); Carbon Dioxide 28 mmol/L (22-29); Chloride 97 mmol/L (98-107); Estimated GFR-MDRD 11; Glucose 262 mg/dL (70-105); Potassium 5.4 mmol/L (3.5-5.1); Sodium 136 mmol/L (136-145)
[2019-02-23] MEDS: HumaLOG 300 UNITS/3 ML VIAL SC PRN (23:15)
[2019-02-24 04:46] LABS: #Eosinphils 0.2 thou/uL (0.0-0.7); #Lymphocytes 1.5 thou/uL (1.20-3.40); #Monocytes 0.7 thou/uL (0.11-0.59); #Neutrophils 4.1 thou/uL (1.40-6.50); %Basophils 0.6 % (0.0-1.0); %Eosinophils 2.5 % (0.0-10.0); %Monocytes 10.4 % (0.0-10.0); %Neutrophils 63.5 % (42.0-75.0); Hemoglobin 10.1 g/dL (14.0-18.0); Mean Corpuscular HGB CONC 33.2 g/dL (32.0-36.0); Mean Corpuscular Hemoglobin 29.3 pg (27.0-31.0); Mean Corpuscular Volume 88.1 fL (78.0-98.0); Mean Platelet Volume 10.6 fL (7.4-10.4); Platelet Count 115 thou/uL (130-400); RBC Distribution Width 15.5 % (11.5-14.5); Red Blood Cell (RBC) Count 3.46 mill/uL (4.70-6.10); White Blood Cell (WBC) Count 6.4 thou/uL (4.8-10.8)
[2019-02-24 04:53] LABS: ALT (SGPT) 10 U/L (8-55); AST (SGOT) 10 U/L (5-34); Albumin 3.5 g/dL (3.5-5.0); Alkaline Phosphatase 116 U/L (40-150); Anion Gap 18 mmol/L (10-20); BUN (Urea Nitrogen) 55 mg/dL (8.9-20.6); Bilirubin, Total 0.5 mg/dL (0.2-1.2); Calc. Creatinine Clearance 15 mL/min (70-130); Calcium 8.7 mg/dL (7.8-10.44); Carbon Dioxide 27 mmol/L (22-29); Chloride 99 mmol/L (98-107); Estimated GFR-MDRD 10; Globulin 3.3 g/dL (2.4-3.5); Glucose 174 mg/dL (70-105); Potassium 5.3 mmol/L (3.5-5.1); Protein, Total 6.8 g/dL (6.0-8.3); Sodium 139 mmol/L (136-145)
--- NOTE | 2019-02-24 05:51 | PDOC.FM ---
- Subjective Subjective: Patient reports feeling much better this AM. Denies any nausea or vomiting but reports persistent diarrhea. Says he has had only 1 BM since admission that was diarrhea. Denies any chest pain, fever, or chills but does endorse persistent slight SOB that is worse with laying down & improves with sitting up. - Objective MAR Reviewed: Yes Vital Signs & Weight: Vital Signs (12 hours) Temp Pulse BP Pulse Ox 02/24/19 04:00 98.4 F 02/24/19 00:00 98.3 F 02/23/19 20:45 102 H 186/73 H 02/23/19 20:00 97.7 F 100 Weight Weight 77.8 kg Most Recent Monitor Data Heart Rate from ECG 93 NIBP 108/53 NIBP BP-Mean 71 Respiration from ECG 13 SpO2 97 I&O: 02/22/19 02/23/19 02/24/19 06:59 06:59 06:59 Intake Total 187 Output Total 0 Balance 187 Result Diagrams: 02/24/19 04:15 02/24/19 04:15 Phys Exam - Physical Examination Constitutional: NAD HEENT: moist MMs, sclera anicteric Neck: supple, full ROM Respiratory: no wheezing, no rales, no rhonchi, clear to auscultation bilateral Cardiovascular: RRR, no significant murmur Gastrointestinal: soft, non-tender Musculoskeletal: no edema Neurological: non-focal Psychiatric: normal affect, A&O x 3 Skin: no rash, normal turgor Dx/Plan (1) Hyperkalemia Code(s): E87.5 - HYPERKALEMIA Status: Acute (2) Metabolic encephalopathy Code(s): G93.41 - METABOLIC ENCEPHALOPATHY Status: Acute (3) Normocytic anemia, not due to blood loss Code(s): D64.9 - ANEMIA, UNSPECIFIED Status: Acute (4) Anemia of renal disease Code(s): D63.1 - ANEMIA IN CHRONIC KIDNEY DISEASE Status: Chronic (5) Anxiety and depression Code(s): F41.9 - ANXIETY DISORDER, UNSPECIFIED; F32.9 - MAJOR DEPRESSIVE DISORDER, SINGLE EPISODE, UNSPECIFIED Status: Chronic (6) Diabetes mellitus type 1 Code(s): E10.9 - TYPE 1 DIABETES MELLITUS WITHOUT COMPLICATIONS Status: Chronic (7) Diastolic CHF Code(s): I50.30 - UNSPECIFIED DIASTOLIC (CONGESTIVE) HEART FAILURE Status: Chronic Qualifiers: (8) ESRD (end stage renal disease) on dialysis Code(s): N18.6 - END STAGE RENAL DISEASE; Z99.2 - DEPENDENCE ON RENAL DIALYSIS Status: Chronic (9) HLD (hyperlipidemia) Code(s): E78.5 - HYPERLIPIDEMIA, UNSPECIFIED Status: Chronic (10) Hypertension Code(s): I10 - ESSENTIAL (PRIMARY) HYPERTENSION Status: Chronic Qualifiers: Hypertension type: essential hypertension Qualified Code(s): I10 - Essential (primary) hypertension (11) Marijuana abuse, continuous Code(s): F12.10 - CANNABIS ABUSE, UNCOMPLICATED Status: Chronic (12) Non-compliance with renal dialysis Code(s): Z91.15 - PATIENT'S NONCOMPLIANCE WITH RENAL DIALYSIS Status: Chronic (13) Polysubstance abuse Code(s): F19.10 - OTHER PSYCHOACTIVE SUBSTANCE ABUSE, UNCOMPLICATED Status: Chronic (14) Secondary hyperparathyroidism of renal origin Code(s): N25.81 - SECONDARY HYPERPARATHYROIDISM OF RENAL ORIGIN Status: Chronic (15) Tobacco abuse Code(s): Z72.0 - TOBACCO USE Status: Chronic - Plan Plan: Acute metabolic encephalopathy, resolved -likely 2/2 uremia & DKA Diabetic ketoacidosis, improved -glucose 500s, pH 7.2, serum ketones, & AG 32 on admission -likely 2/2 noncompliance -Insulin drip d/c @ ~14:30 yesterday & glucose down to 174 this AM with a mild gap of 13 -accuchecks ACHS & will resume GALEN SQ insulin regimen today -insulin protocol for electrolyte replacement -Will move to telemetry floor today since off insulin gtt Acute hyperkalemia w/ cardiac changes, improving -K 9.1 with peaked T waves on EKG on admission. Received insulin, CaCl, bicarb in ED & was urgently dialyzed. K down to 5.3 this AM -Dr. Gonzalez, nephrology, on board, appreciate recs -Will continue tele monitoring AG Met acidosis, improved -AG 32 on admission but down to 13 this AM. -likley 2/2 DKA and uremia -Will continue to monitor with QD BMPs ESRD on MWF HD -Cr 14 -Kr. Gonzalez on board. S/p urgent HD yesterday. Will continue HD PRN per nephro. Appreciate recs. -continue sevelamer Polysubstance abuse -PCP and marijuana -will vocational counselor on cessation Anemia of ESRD -stable, will continue monitoring Anxiety/Depression -continue home sertraline HTN -continue home amlodipine and hydralazine dvt ppx: lovenox lines: Right femoral central line dispo: >2 midnights code: full PCP: Arlen Discussed with Dr. Stroud. Addendum - Attending - Attending Attestation Date/Time: 02/24/19 8352 I personally evaluated the patient and discussed the management with Dr. Chang. I agree with the History, Examination, Assessment and Plan documented above with any addition or exceptions noted below. The patient is awake, alert and very pleasant this morning. He states he feels a lot better. The pt notes he will get dialysis again today. DKA is resolved. Restarting home insulin dose. Counseled on importance of compliance with treatment. Can transfer to telemetry.
[2019-02-24] MEDS: HumaLOG 300 UNITS/3 ML VIAL SC PRN ×2 (05:52→20:19)
[2019-02-24] MEDS: levETIRAcetam 500 MG TAB PO SCH ×2 (08:51→20:20)
[2019-02-24] MEDS: Aspirin 81 mg Enteric Coated Tablet PO SCH (08:51)
[2019-02-24] MEDS: Sevelamer Carbonate 800 MG TAB PO SCH ×3 (08:51→17:18)
[2019-02-24] MEDS: Amlodipine 10 MG TAB PO SCH (08:54)
[2019-02-24] MEDS: Insulin Glargine 20 UNITS in Pre-Filled Syringe 1 EACH SC SCH (08:54)
[2019-02-24] MEDS: hydrALAZINE 25 MG TAB PO SCH ×3 (09:00→20:20)
[2019-02-24] MEDS: Heparin 5,000 UNITS/ML VIAL SC SCH ×3 (09:33→20:21)
--- NOTE | 2019-02-24 13:07 | PRG ---
DATE OF SERVICE: 02/24/2019 SUBJECTIVE: A 38-year-old gentleman, being seen for end-stage kidney disease. The patient denies any nausea, vomiting, or chest pain. OBJECTIVE: CONSTITUTIONAL: The patient is awake and alert. VITAL SIGNS: Afebrile, pulse 75, breathing 16, and blood pressure 148/79. GENERAL APPEARANCE AND MENTAL STATUS: Fair. HEAD/NECK: Normocephalic. Atraumatic. EYES: EOMI. No deformity. EARS: Clear. No ulcers. NOSE: Intact. No lesions. MOUTH: Clear. No discharge. THROAT: Clear. No exudate. LUNGS: Clear. No crackles. CARDIAC: S1, S2. No rub. ABDOMEN: Benign. Bowel sounds positive. GENITALIA/RECTUM: Clifton absent. BACK/EXTREMITIES: Edema 0+. NEUROLOGICAL: Alert and motor intact. SKIN: LYMPHATICS: LABORATORY DATA: Reviewed. ASSESSMENT AND PLAN: 1. Stage 6 chronic kidney disease. Continue hemodialysis. 2. Hyperkalemia. Plan dialysis. 3. Hypertension, stable. 4. Anemia, stable. 5. Medication based on GFR appropriate. Job ID: [id number]
[2019-02-25 05:51] LABS: Anion Gap 15 mmol/L (10-20); BUN (Urea Nitrogen) 35 mg/dL (8.9-20.6); Calc. Creatinine Clearance 19 mL/min (70-130); Calcium 8.9 mg/dL (7.8-10.44); Carbon Dioxide 31 mmol/L (22-29); Chloride 98 mmol/L (98-107); Estimated GFR-MDRD 14; Glucose 80 mg/dL (70-105); Potassium 4.7 mmol/L (3.5-5.1); Sodium 139 mmol/L (136-145)
[2019-02-25] MEDS: Insulin Glargine 20 UNITS in Pre-Filled Syringe 1 EACH SC SCH (08:30)
[2019-02-25] MEDS: Amlodipine 10 MG TAB PO SCH (08:32)
[2019-02-25] MEDS: Aspirin 81 mg Enteric Coated Tablet PO SCH (08:32)
[2019-02-25] MEDS: Sevelamer Carbonate 800 MG TAB PO SCH ×3 (08:32→17:49)
[2019-02-25] MEDS: levETIRAcetam 500 MG TAB PO SCH ×2 (08:32→20:47)
[2019-02-25] MEDS: Heparin 5,000 UNITS/ML VIAL SC SCH ×3 (08:34→20:47)
[2019-02-25] MEDS: hydrALAZINE 25 MG TAB PO SCH ×3 (08:40→20:47)
--- NOTE | 2019-02-25 09:35 | PDOC.FM ---
- Subjective Subjective: SUMMER overnight. Pt rpeorts he feels "much better." He states he did not go to dialysis because he had "diarrhea" on Monday. Discussed goals of care briefly with pt. He is open to speaking with palliative care. - Objective Vital Signs & Weight: Vital Signs (12 hours) Temp Pulse BP 02/25/19 08:40 96 166/81 H 02/25/19 08:32 96 166/81 H 02/25/19 04:00 98.3 F 02/25/19 00:00 97.9 F Weight Weight 72.7 kg Most Recent Monitor Data Heart Rate from ECG 95 NIBP 134/76 NIBP BP-Mean 95 Respiration from ECG 13 SpO2 98 I&O: 02/24/19 02/25/19 02/26/19 06:59 06:59 06:59 Intake Total 187 470 Output Total 0 Balance 187 470 Result Diagrams: 02/24/19 04:15 02/25/19 05:00 Phys Exam - Physical Examination Constitutional: NAD HEENT: PERRLA, sclera anicteric Neck: no JVD Respiratory: no wheezing, no rales, no rhonchi, clear to auscultation bilateral Cardiovascular: RRR, no significant murmur, no rub Gastrointestinal: soft, non-tender, no distention, positive bowel sounds Musculoskeletal: no edema Neurological: non-focal, moves all 4 limbs Skin: cap refill <2 seconds Dx/Plan (1) Hyperkalemia Code(s): E87.5 - HYPERKALEMIA Status: Acute (2) Metabolic encephalopathy Code(s): G93.41 - METABOLIC ENCEPHALOPATHY Status: Acute (3) Uremia Code(s): N19 - UNSPECIFIED KIDNEY FAILURE Status: Acute (4) Anxiety and depression Code(s): F41.9 - ANXIETY DISORDER, UNSPECIFIED; F32.9 - MAJOR DEPRESSIVE DISORDER, SINGLE EPISODE, UNSPECIFIED Status: Chronic (5) Diabetes mellitus type 1 with complications Code(s): E10.8 - TYPE 1 DIABETES MELLITUS WITH UNSPECIFIED COMPLICATIONS Status: Chronic (6) ESRD (end stage renal disease) on dialysis Code(s): N18.6 - END STAGE RENAL DISEASE; Z99.2 - DEPENDENCE ON RENAL DIALYSIS Status: Chronic (7) HLD (hyperlipidemia) Code(s): E78.5 - HYPERLIPIDEMIA, UNSPECIFIED Status: Chronic (8) Hypertension Code(s): I10 - ESSENTIAL (PRIMARY) HYPERTENSION Status: Chronic Qualifiers: Hypertension type: essential hypertension Qualified Code(s): I10 - Essential (primary) hypertension (9) Non-compliance with renal dialysis Code(s): Z91.15 - PATIENT'S NONCOMPLIANCE WITH RENAL DIALYSIS Status: Chronic (10) Polysubstance abuse Code(s): F19.10 - OTHER PSYCHOACTIVE SUBSTANCE ABUSE, UNCOMPLICATED Status: Chronic (11) DKA (diabetic ketoacidoses) Code(s): E13.10 - OTH DIABETES MELLITUS WITH KETOACIDOSIS WITHOUT COMA Status : Resolved - Plan Plan: Acute metabolic encephalopathy, resolved -likely 2/2 uremia & DKA Diabetic ketoacidosis, improved -resolved, gap closed - transfer out of ICU - restart home insulin and watch closely, suspect non compliance with home meds - frequent hospitalizations for same problem - consult palliative/hospice Acute hyperkalemia w/ cardiac changes, improving -dialyzed and K= WNL - daily BMP - manage per nephro recs - transfer to tele AG Met acidosis, improved -resolved, gap closed - daily BMPS ESRD on MWF HD -skipped Monday for "diarrhea" - continuously noncompliant - will place palliative hospice consult to discuss goals of care and hopefully there will be some congruence in pts expectations and actions Polysubstance abuse -PCP + marijuana use Anemia of ESRD -stable, will continue monitoring Anxiety/Depression -continue home sertraline HTN -continue home amlodipine and hydralazine 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 He continues to be noncompliant with DM medications and HD.
[2019-02-25] MEDS: HumaLOG 300 UNITS/3 ML VIAL SC PRN ×2 (12:30→20:47)
--- NOTE | 2019-02-25 12:53 | PRG ---
DATE OF SERVICE: 02/25/2019 Mr. Brush is a 38-year-old black man, who was admitted with DKA after missing a session of dialysis. After one treatment of dialysis his metabolic abnormalities seem to reverse. This morning, he is awake, alert, and feels much better. We will transfer him to a regular bed in anticipation of a discharge later today or tomorrow. As of this morning, his sodium is 139, potassium 4.7, chloride 98, bicarb is 31, anion gap 15, BUN 35, and creatinine 5.49. Job ID: [id number]
--- NOTE | 2019-02-25 12:55 | PRG ---
DATE OF SERVICE: 02/25/2019 SUBJECTIVE: A 38-year-old gentleman is being seen for end-stage kidney disease. The patient denies any nausea, vomiting, or chest pain. OBJECTIVE: GENERAL: The patient is awake and alert. VITAL SIGNS: Afebrile, pulse 75, breathing 16, blood pressure 166/81. GENERAL APPEARANCE AND MENTAL STATUS: Fair. HEAD/NECK: Normocephalic. Atraumatic. EYES: EOMI. No deformity. EARS: Clear. No ulcers. NOSE: Intact. No lesions. MOUTH: Clear. No discharge. THROAT: Clear. No exudate. LUNGS: Clear. No crackles. CARDIAC: S1, S2. No rub. ABDOMEN: Benign. Bowel sounds positive. GENITALIA/RECTUM: Clif[place] absent. BACK/EXTREMITIES: Edema 0+. NEUROLOGICAL: Alert and motor intact. LABORATORY DATA: Labs reviewed. ASSESSMENT AND PLAN: 1. Stage 6 chronic kidney disease. Continue hemodialysis. 2. Hypertension, stable. 3. Anemia, stable. 4. Hyperkalemia, stable. Job ID: [id number]
[2019-02-25 13:50] VITALS: BMI 22.3
[2019-02-26 06:52] LABS: Anion Gap 17 mmol/L (10-20); BUN (Urea Nitrogen) 30 mg/dL (8.9-20.6); Calc. Creatinine Clearance 22 mL/min (70-130); Calcium 9.2 mg/dL (7.8-10.44); Carbon Dioxide 25 mmol/L (22-29); Chloride 100 mmol/L (98-107); Estimated GFR-MDRD 18; Glucose 201 mg/dL (70-105); Potassium 4.5 mmol/L (3.5-5.1); Sodium 137 mmol/L (136-145)
[2019-02-26] MEDS: Sevelamer Carbonate 800 MG TAB PO SCH ×2 (08:31→12:13)
[2019-02-26] MEDS: Amlodipine 10 MG TAB PO SCH (08:31)
[2019-02-26] MEDS: hydrALAZINE 25 MG TAB PO SCH (08:32)
[2019-02-26] MEDS: Insulin Glargine 20 UNITS in Pre-Filled Syringe 1 EACH SC SCH (08:32)
[2019-02-26] MEDS: Heparin 5,000 UNITS/ML VIAL SC SCH (08:32)
[2019-02-26] MEDS: Aspirin 81 mg Enteric Coated Tablet PO SCH (08:32)
[2019-02-26] MEDS: levETIRAcetam 500 MG TAB PO SCH (08:32)
[2019-02-26 08:37] VITALS: BP 121/64
[2019-02-26] MEDS: Loperamide HCl 2 MG CAP PO PRN ×2 (08:38→13:03)
--- NOTE | 2019-02-26 09:50 | PDOC.FM ---
- Subjective Subjective: SUMMER overnight. Pt reports he is feeling well and is ready to go home. - Objective MAR Reviewed: Yes Vital Signs & Weight: Vital Signs (12 hours) Temp Pulse BP Pulse Ox 02/26/19 08:32 98 121/64 02/26/19 08:31 98 121/64 02/26/19 07:55 100 02/26/19 04:00 98.0 F 02/26/19 00:00 97.9 F Weight Admit Weight 72.575 kg Weight 71.2 kg Most Recent Monitor Data Heart Rate from ECG 91 NIBP 121/64 NIBP BP-Mean 83 Respiration from ECG 15 SpO2 98 I&O: 02/25/19 02/26/19 02/27/19 06:59 06:59 06:59 Intake Total 470 940 Output Total 0 Balance 470 940 Result Diagrams: 02/24/19 04:15 02/26/19 04:33 Phys Exam - Physical Examination Constitutional: NAD HEENT: PERRLA, sclera anicteric Neck: no nodes, no JVD Respiratory: no wheezing, no rales, no rhonchi, clear to auscultation bilateral Cardiovascular: RRR, no significant murmur, no rub Gastrointestinal: soft, non-tender, no distention, positive bowel sounds bka Neurological: non-focal, moves all 4 limbs Skin: no rash Dx/Plan (1) Hyperkalemia Code(s): E87.5 - HYPERKALEMIA Status: Resolved (2) Metabolic encephalopathy Code(s): G93.41 - METABOLIC ENCEPHALOPATHY Status: Resolved (3) Uremia Code(s): N19 - UNSPECIFIED KIDNEY FAILURE Status: Resolved (4) Anxiety and depression Code(s): F41.9 - ANXIETY DISORDER, UNSPECIFIED; F32.9 - MAJOR DEPRESSIVE DISORDER, SINGLE EPISODE, UNSPECIFIED Status: Chronic (5) Diabetes mellitus type 1 with complications Code(s): E10.8 - TYPE 1 DIABETES MELLITUS WITH UNSPECIFIED COMPLICATIONS Status: Chronic (6) ESRD (end stage renal disease) on dialysis Code(s): N18.6 - END STAGE RENAL DISEASE; Z99.2 - DEPENDENCE ON RENAL DIALYSIS Status: Chronic (7) HLD (hyperlipidemia) Code(s): E78.5 - HYPERLIPIDEMIA, UNSPECIFIED Status: Chronic (8) Hypertension Code(s): I10 - ESSENTIAL (PRIMARY) HYPERTENSION Status: Chronic Qualifiers: Hypertension type: essential hypertension Qualified Code(s): I10 - Essential (primary) hypertension (9) Non-compliance with renal dialysis Code(s): Z91.15 - PATIENT'S NONCOMPLIANCE WITH RENAL DIALYSIS Status: Chronic (10) Polysubstance abuse Code(s): F19.10 - OTHER PSYCHOACTIVE SUBSTANCE ABUSE, UNCOMPLICATED Status: Chronic - Plan Plan: Acute metabolic encephalopathy, resolved -this is related to his continued noncompliance Diabetic ketoacidosis, improved -resolved - ok to return home - counseled extensively on compliance - ok to DC to home Acute hyperkalemia w/ cardiac changes, resolved -dialyzed and K= WNL - stable and K= WNL - Ok to transfer to home - pt counseled on importance of dialysis AG Met acidosis, resolved -resolved, gap closed - daily BMPS - DC to home ESRD on MWF HD -skipped Monday for "diarrhea" - continuously noncompliant - will place palliative hospice consult to discuss goals of care and hopefully there will be some congruence in pts expectations and actions - DC to home today Polysubstance abuse -PCP + marijuana use Anemia of ESRD -stable, will continue monitoring Anxiety/Depression -continue home sertraline HTN -continue home amlodipine and hydralazine 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 He continues to be noncompliant with DM medications and HD. Acutely, he is stable to DC to home until her returns for continued noncompliance.
[2019-02-26 12:44] VITALS: TEMP 98
--- NOTE | 2019-02-26 12:49 | PRG ---
DATE OF SERVICE: 02/26/2019 SUBJECTIVE: A 38-year-old gentleman being seen for end-stage kidney disease. The patient denied nausea, vomiting, or chest pain. OBJECTIVE: CONSTITUTIONAL: The patient is awake and alert. VITAL SIGNS: Afebrile. Pulse 77, breathing 16, blood pressure 125/64. GENERAL APPEARANCE AND MENTAL STATUS: Fair. HEAD/NECK: Normocephalic. Atraumatic. EYES: EOMI. No deformity. EARS: Clear. No ulcers. NOSE: Intact. No lesions. MOUTH: Clear. No discharge. THROAT: Clear. No exudate. LUNGS: Clear. No crackles. CARDIAC: S1, S2. No rub. ABDOMEN: Benign. Bowel sounds positive. GENITALIA/RECTUM: Clif[place] absent. BACK/EXTREMITIES: Edema 0+. NEUROLOGICAL: Alert and motor intact. SKIN: LYMPHATICS: LABORATORY DATA: Labs reviewed. ASSESSMENT AND PLAN: 1. Stage 6 chronic kidney disease. Continue hemodialysis. 2. Hypertension, stable. 3. Anemia, stable. 4. Medication based on GFR appropriate. The patient is okay to discharge. Job ID: [id number]
--- NOTE | 2019-02-26 12:55 | PRG ---
DATE OF SERVICE: 02/26/2019 Mr. Brush continues to look and feel well. His BMP this morning shows a sodium of 137, potassium 4.5, chloride 100, bicarb is 25, BUN is 30, creatinine is 4.51, and random glucose is 201. We have again admonished Mr. Brush to please be compliant with medications and with dialysis visits. He is ready for discharge and will be discharged later this afternoon. Job ID: [id number]
[2019-02-26] MEDS: HumaLOG 300 UNITS/3 ML VIAL SC PRN (13:02)
== END 2019-02-26 15:00 | disposition home or self-care (01) | DRG 637 ==
LOC: ERS 07:56 → CCU 10:35
PROVIDERS: ADMIT Family Medicine; ATTEND Family Medicine
PROC: 5A1D70Z Performance of Urinary Filtration, Intermittent, Less than 6 Hours Per Day (ICD-10-PCS; principal; 2019-02-24)
DX: E10.10 Type 1 diabetes mellitus with ketoacidosis without coma (principal); G93.41 Metabolic encephalopathy; N18.6 End stage renal disease; I13.0 Hypertensive heart and chronic kidney disease with heart failure and stage 1 through stage 4 chronic kidney disease, or unspecified chronic kidney disease; I50.32 Chronic diastolic (congestive) heart failure; N25.81 Secondary hyperparathyroidism of renal origin; Z51.5 Encounter for palliative care; E87.5 Hyperkalemia; F16.10 Hallucinogen abuse, uncomplicated; E10.22 Type 1 diabetes mellitus with diabetic chronic kidney disease; F19.10 Other psychoactive substance abuse, uncomplicated; F41.9 Anxiety disorder, unspecified; F32.9 Major depressive disorder, single episode, unspecified; D63.1 Anemia in chronic kidney disease; F17.210 Nicotine dependence, cigarettes, uncomplicated; E78.5 Hyperlipidemia, unspecified; Z99.2 Dependence on renal dialysis; Z91.15 Patient's noncompliance with renal dialysis; Z89.511 Acquired absence of right leg below knee; Z86.73 Personal history of transient ischemic attack (TIA), and cerebral infarction without residual deficits
CPT/HCPCS: 36415; 36416; 36556; 70450; 71045; 72125; 80048; 80053; 80307; 82010; 82330; 82803; 83690; 83735; 84100; 84484; 85025; 87040; 90935; 93005; 96361; 96374; 96375; 96376; G0257; J1644; J1815; J1825; J3490

== ENCOUNTER 2019-03-22 10:59 | Inpatient (IN) | payer MEDICARE, MEDICAID ==
[2019-03-22 11:35] LABS: #Eosinphils 0.1 thou/uL (0.0-0.7); #Lymphocytes 1.7 thou/uL (1.20-3.40); #Monocytes 0.7 thou/uL (0.11-0.59); #Neutrophils 4.1 thou/uL (1.40-6.50); %Basophils 0.3 % (0.0-1.0); %Eosinophils 1.1 % (0.0-10.0); %Lymphocytes 25.3 % (21.0-51.0); %Monocytes 10.1 % (0.0-10.0); %Neutrophils 63.2 % (42.0-75.0); Hemoglobin 10.7 g/dL (14.0-18.0); Mean Corpuscular HGB CONC 33.7 g/dL (32.0-36.0); Mean Corpuscular Hemoglobin 29.6 pg (27.0-31.0); Mean Corpuscular Volume 88.1 fL (78.0-98.0); Mean Platelet Volume 10.3 fL (7.4-10.4); Platelet Count 177 thou/uL (130-400); RBC Distribution Width 14.8 % (11.5-14.5); Red Blood Cell (RBC) Count 3.61 mill/uL (4.70-6.10); White Blood Cell (WBC) Count 6.5 thou/uL (4.8-10.8)
[2019-03-22 12:05] LABS: ALT (SGPT) 25 U/L (8-55); AST (SGOT) 28 U/L (5-34); Albumin 3.8 g/dL (3.5-5.0); Alkaline Phosphatase 135 U/L (40-150); Anion Gap 28 mmol/L (10-20); Bilirubin, Total 0.5 mg/dL (0.2-1.2); Calc. Creatinine Clearance 0 mL/min (70-130); Calcium 8.8 mg/dL (7.8-10.44); Carbon Dioxide 19 mmol/L (22-29); Estimated GFR-MDRD 4; Globulin 3.4 g/dL (2.4-3.5); Glucose 167 mg/dL (70-105); Protein, Total 7.2 g/dL (6.0-8.3)
[2019-03-22 12:14] LABS: Chloride 88 mmol/L (98-107); Potassium 5.8 mmol/L (3.5-5.1); Sodium 129 mmol/L (136-145)
[2019-03-22 12:17] LABS: BUN (Urea Nitrogen) 127 mg/dL (8.9-20.6)
--- NOTE | 2019-03-22 12:50 | RAD ---
PORTABLE CHEST ONE VIEW: 03/22/19 at 11:31 a.m. HISTORY: Renal failure. Patient missed dialysis twice this week. FINDINGS/IMPRESSION: Comparison with the exam of 02/23/19. A right sided pleural effusion is seen with adjacent infiltrate/atelectatic change of the right lung base. Left sided vascular stents and right sided dialysis catheter remain in place. The heart size i s stable. The left lung is clear. POS: TPC
--- NOTE | 2019-03-22 14:50 | PDOC.FPRHP ---
- History of Present Illness Chief Complaint: "feeling bad" History of Present Illness: Mr. Brush is a 38 yo M with ESRD on MWF HD, type 1 DM presenting to ED for "not feeling good". He is well known to our service for noncompliance with insulin and hemo-dialysis appointments. He is not a great historian. Reported missing dialysis session x2 due to just not feeling good. He gives no specific complaint. ED Course: transported for dialysis - Allergies/Adverse Reactions Allergies Allergy/AdvReac Type Severity Reaction Status Date / Time Penicillins Allergy Unknown Verified 12/23/18 12:13 - Home Medications Medication Instructions Recorded Confirmed Type Sevelamer Carbonate [Renvela] 2,400 mg PO TID-WM 09/08/15 03/22/19 History Amlodipine Besylate [amLODIPine 10 mg PO DAILY 09/02/16 03/22/19 History Besylate] Cinacalcet HCl [Sensipar] 60 mg PO DAILY 09/02/16 03/22/19 History hydrALAZINE [Apresoline] 25 mg PO TID 09/02/16 03/22/19 History Sertraline HCl 25 mg PO DAILY 03/03/17 03/22/19 History HumaLOG [HumaLOG Vial] 3 units SC TID-WM vial 06/04/18 03/22/19 Rx Insulin Glargine [Lantus Vial] 12 units SC QAM 30 Days #1 vial 06/04/18 Rx levETIRAcetam [Keppra] 500 mg PO BID #60 tab 06/04/18 03/22/19 Rx HumaLOG [HumaLOG Vial] 0 unit SC TID-WM PRN 09/17/18 12/23/18 History Acetaminophen [Tylenol Regular 650 mg PO Q4H PRN tab 09/27/18 03/22/19 Rx Strength] Aspirin [Aspirin EC] 81 mg PO DAILY 02/23/19 03/22/19 History - History PMHx: CHF, DM1, ESRD on MWF dialysis, Right BKA, CVAx2, HLD, HTN, Depression PSHx: Rt BKA, L fistula reomved, Right fisual recently placed, right vasc cath ( subclavian) FHx: n/c Social:10 year smoking history, endorses marijuana and PCP use - Review of Systems General: denies: fever/chills, fatigue Eyes: denies: eye pain, vision changes ENT: denies: nasal congestion, rhinorrhea Respiratory: denies: cough, congestion Cardiovascular: denies: chest pain, palpitation Gastrointestinal: denies: nausea, vomiting Genitourinary: denies: incontinence, dysuria Skin: denies: lesions, jaundice Musculoskeletal: denies: pain, tenderness Neurological: denies: numbness, syncope, seizure Psychological: denies: anxiety, depression - Vital signs BP: 147/70, Pulse: 93, Resp: 16, Temp: 98.0 (Oral), Pain: 7, O2 sat: 97 on Room Air, Time: 03/22/2019 weight 73kg - Physical Exam Constitutional: awake, alert and oriented, well developed HEENT: EOMI, grossly normal vision, grossly normal hearing, other (periorbital edema bilaterally) Neck: supple, trachea midline Chest: no-tender to palpation Heart: RRR, normal S1/S2 Lungs: CTAB, good air movement, no wheezing Abdomen: soft, non-tender Musculoskeletal: normal tone, ROM grossly normal Neurological: no focal deficit, normal sensation Skin: no rash/lesions, good turgor Heme/Lymphatic: no purpura, no petechia Psychiatric: normal mood and affect, other (poor judgement) FMR H&P: Results - Labs Result Diagrams: 03/22/19 11:24 03/22/19 11:24 Lab results: WBC 6.5 thou/uL (4.8-10.8) 03/22/19 11:24 Hgb 10.7 g/dL (14.0-18.0) L 03/22/19 11:24 Hct 31.8 % (42.0-52.0) L 03/22/19 11:24 MCV 88.1 fL (78.0-98.0) 03/22/19 11:24 Plt Count 177 thou/uL (130-400) 03/22/19 11:24 Neutrophils % 63.2 % (42.0-75.0) 03/22/19 11:24 Sodium 129 mmol/L (136-145) L 03/22/19 11:24 Potassium 5.8 mmol/L (3.5-5.1) H 03/22/19 11:24 Chloride 88 mmol/L (98-107) L 03/22/19 11:24 Carbon Dioxide 19 mmol/L (22-29) L 03/22/19 11:24 BUN 127 mg/dL (8.9-20.6) H 03/22/19 11:24 Creatinine 15.46 mg/dL (0.7-1.3) H 03/22/19 11:24 Glucose 167 mg/dL (70-105) H 03/22/19 11:24 Calcium 8.8 mg/dL (7.8-10.44) 03/22/19 11:24 Total Bilirubin 0.5 mg/dL (0.2-1.2) 03/22/19 11:24 AST 28 U/L (5-34) 03/22/19 11:24 ALT 25 U/L (8-55) 03/22/19 11:24 Alkaline Phosphatase 135 U/L (40-150) 03/22/19 11:24 Serum Total Protein 7.2 g/dL (6.0-8.3) 03/22/19 11:24 Albumin 3.8 g/dL (3.5-5.0) 03/22/19 11:24 FMR H&P: A/P - Problem List (1) Hyperkalemia Current Visit: No Status: Acute Priority: High Code(s): E87.5 - HYPERKALEMIA (2) Type 1 diabetes mellitus with hyperosmolarity without nonketotic hyperglycemic hyperosmolar coma Current Visit: No Status: Acute Priority: High Code(s): E10.69 - TYPE 1 DIABETES MELLITUS WITH OTHER SPECIFIED COMPLICATION; E10.65 - TYPE 1 DIABETES MELLITUS WITH HYPERGLYCEMIA (3) Anemia of renal disease Current Visit: No Status: Chronic Code(s): D63.1 - ANEMIA IN CHRONIC KIDNEY DISEASE (4) Anxiety and depression Current Visit: No Status: Chronic Code(s): F41.9 - ANXIETY DISORDER, UNSPECIFIED; F32.9 - MAJOR DEPRESSIVE DISORDER, SINGLE EPISODE, UNSPECIFIED (5) Depression Current Visit: No Status: Chronic Priority: Low Code(s): F32.9 - MAJOR DEPRESSIVE DISORDER, SINGLE EPISODE, UNSPECIFIED Qualifiers: Depression Type: major depressive disorder Active/Remission status: currently active Psychotic features: without psychotic features (6) Diabetes mellitus type 1 Current Visit: No Status: Chronic Code(s): E10.9 - TYPE 1 DIABETES MELLITUS WITHOUT COMPLICATIONS (7) Drug abuse, phencyclidine Current Visit: No Status: Chronic Code(s): F16.10 - HALLUCINOGEN ABUSE, UNCOMPLICATED (8) ESRD (end stage renal disease) on dialysis Current Visit: No Status: Chronic Code(s): N18.6 - END STAGE RENAL DISEASE; Z99.2 - DEPENDENCE ON RENAL DIALYSIS (9) HLD (hyperlipidemia) Current Visit: No Status: Chronic Code(s): E78.5 - HYPERLIPIDEMIA, UNSPECIFIED (10) Hypertension Current Visit: No Status: Chronic Code(s): I10 - ESSENTIAL (PRIMARY) HYPERTENSION Qualifiers: Hypertension type: essential hypertension Qualified Code(s): I10 - Essential (primary) hypertension (11) Non-compliance with renal dialysis Current Visit: No Status: Chronic Code(s): Z91.15 - PATIENT'S NONCOMPLIANCE WITH RENAL DIALYSIS (12) Polysubstance abuse Current Visit: No Status: Chronic Priority: Low Code(s): F19.10 - OTHER PSYCHOACTIVE SUBSTANCE ABUSE, UNCOMPLICATED - Plan Hyperkalemia 2/2 ESRD with noncompliance to dialysis A- pt asymptomatic with reassuring EKG, pt getting dialysis now. Nephro on board , recs much appreciated, advised to admit pt for another round of dialysis tomorrow P- Dialysis today and tomorrow -BMP in AM volume overload 2/2 above A- CXR shows pleural effusion and pt mildy edemetous on exam, no respiratory distress P- dialysis as listed above DM 1 -home insulin Normocytic anemia -2/2 renal disease depression -home meds Polysubstance use -advise cessation CODE: Full FMR H&P: Upper Level - Pertinent history 38M here with one day of "not feeling good". He has known history of noncompliance with medical care and this time missed two session of dialysis. On arrival, he was noted to have hyperkalemia at 5.8 without EKG changes. Bicarb was depressed at 19 but not having SOB and rapid breathing. BUN elevated at 127 but he denied changes in his mentation. He had other electrolyte abnormalities expected from dialysis. He denied edema,or increased O2 demand. - Pertinent findings Gen: Alert, oriented, at baseline or better compared to previous admissions, comfortable appearing HEENT: Normocephalic, hearing and vision grossly intact, midline trachea CV: No edema noted in lower extremeties, normal skin tone without cyanosis, RRR without obvious cardiac rub. There is a dialysis catheter in right arm and chest wall Resp: Non labored breathing, no wheezing heard Ext: Right BKA - Plan Date/Time: 03/22/19 0605 1. Hyperkalemia - Will resume dialysis. Will reeevaluate K level after treatment with dialysis. 2. ESRD - Nephrology request taht patient stay overnight for repeat dialysis tomorrow. He no longer needs tunnel cath in his chest and nephrology also request that surg be contact about that for removal of the catheter. See Lead Section Supervisor note for chronic issues. I, [Facundo Sanderson], have evaluated this patient and agree with findings/plan as outlined by international editorial producer resident. Pertinent changes/additions are listed here. Addendum - Attending - Attending Attestation Date/Time: 03/22/19 8800 I personally evaluated the patient and discussed the management with Dr. Lazar /Maria E. I agree with the History, Examination, Assessment and Plan documented above with any addition or exceptions noted below. Patient very fsmiliar to us here for fluid overload and complications with non compliance with HD. Will admit, dialyze per Nephro recs. Continue home meds for his host of chronic and uncontrolled conditions secondary to medical noncompliance.
--- NOTE | 2019-03-22 22:55 | CON ---
DATE OF CONSULTATION: 03/22/2019 CONSULTING PHYSICIAN: ER doctor. REASON FOR CONSULT: End-stage renal disease evaluation. REASON FOR ADMISSION: Found down. HISTORY OF PRESENT ILLNESS: This is a 38-year-old male with history of end-stage renal disease, hypertension, type 2 diabetes, came to the hospital with above complaints and was found down. He was recently discharged from the hospital, he missed dialysis for 2 days. No fever, chills. No nausea or vomiting reported. PAST MEDICAL HISTORY: Positive for CHF, type 1 diabetes, end-stage renal disease, CVA, hypertension, hyperlipidemia. PAST SURGICAL HISTORY: Right BKA, fistula surgery. HOME MEDICATIONS: Reviewed. ALLERGIES: PENICILLIN. SOCIAL HISTORY: History of smoking and marijuana use in the past. FAMILY HISTORY: No history of kidney disease. REVIEW OF SYSTEMS: CONSTITUTIONAL: Negative for weight loss or gain, ability to conduct usual activities. SKIN: Negative for rash, itching. EYES: Negative for double vision, pain. ENT/MOUTH: Negative for nose bleeding, neck stiffness, pain, tenderness. CARDIOVASCULAR: Negative for palpitations, dyspnea on exertion, orthopnea. RESPIRATORY: Negative for shortness of breath, wheezing, cough, hemoptysis, fever or night sweats. GASTROINTESTINAL: Negative for poor appetite, abdominal pain, heartburn, nausea, vomiting, constipation, or diarrhea. GENITOURINARY: Negative for urgency, frequency, dysuria, nocturia. MUSCULOSKELETAL: Negative for pain, swelling. NEUROLOGIC/PSYCHIATRIC: Negative for anxiety, depression. ALLERGY/IMMUNOLOGIC: Negative for skin rash, bleeding tendency. Rest all negative. PHYSICAL EXAMINATION: GENERAL: This is a well-built male in no apparent distress. VITAL SIGNS: Temperature 96, pulse 78, respiratory rate 18, and blood pressure 177/78. HEENT: Atraumatic, normocephalic. Oral mucosa is moist NECK: Supple. CARDIOVASCULAR: S1, S2 heard. Rate and rhythm regular. RESPIRATORY: Clear to auscultation. GASTROINTESTINAL: Abdomen is soft. MUSCULOSKELETAL: No tenderness. No edema. DERMATOLOGIC: No skin rash. NEUROLOGIC: Alert and awake. PSYCHIATRIC: Mood and affect normal. LABORATORY DATA: Hemoglobin is 10.7, potassium is 5.8, BUN is 127, creatinine is 14.5. ASSESSMENT AND PLAN: 1. End-stage renal disease. Plan is to do emergent dialysis. 2. Hyperkalemia. We will have emergent dialysis. 3. Metabolic acidosis. 4. Uremia. 5. Plan to do emergent dialysis. The patient is to undergo dialysis. Thank you for the consult. Job ID: [id number]
== END 2019-03-22 22:00 | disposition left against medical advice (07) | DRG 640 ==
LOC: ERS 10:59 → ERHOLD 19:02 → ERS 19:02 → 2NO 19:36 → ERHOLD 20:31
PROVIDERS: ADMIT Student in an Organized Health Care Education/Training Program; ATTEND Student in an Organized Health Care Education/Training Program
DX: E87.70 Fluid overload, unspecified (principal); N18.6 End stage renal disease; I13.2 Hypertensive heart and chronic kidney disease with heart failure and with stage 5 chronic kidney disease, or end stage renal disease; I50.32 Chronic diastolic (congestive) heart failure; E87.5 Hyperkalemia; E10.22 Type 1 diabetes mellitus with diabetic chronic kidney disease; F32.9 Major depressive disorder, single episode, unspecified; D63.1 Anemia in chronic kidney disease; F41.9 Anxiety disorder, unspecified; F16.10 Hallucinogen abuse, uncomplicated; E78.5 Hyperlipidemia, unspecified; Z89.511 Acquired absence of right leg below knee; Z79.4 Long term (current) use of insulin; Z88.0 Allergy status to penicillin; Z91.14 Patient's other noncompliance with medication regimen; Z99.2 Dependence on renal dialysis; Z91.15 Patient's noncompliance with renal dialysis; Z79.899 Other long term (current) drug therapy; Z79.82 Long term (current) use of aspirin; Z86.73 Personal history of transient ischemic attack (TIA), and cerebral infarction without residual deficits; E78.00 Pure hypercholesterolemia, unspecified; F17.210 Nicotine dependence, cigarettes, uncomplicated
CPT/HCPCS: 36415; 71045; 80053; 85025; 93005

== ENCOUNTER 2019-04-03 23:09 | Emergency (ER) | payer MEDICARE, MEDICAID ==
--- NOTE | 2019-04-03 23:56 | RAD ---
EXAM: Single view of the chest HISTORY: Weakness; dialysis patient with renal failure COMPARISON: 03/22/2019 FINDINGS: Single view of the chest shows an enlarged but stable cardiomediastinal silhouette. There is a moderate right pleural effusion. Vascular stents project in the left subclavian region. The previously seen dialysis catheter has been removed. IMPRESSION: Moderate right pleural effusion
[2019-04-04 00:08] LABS: ALT (SGPT) Less than 7 U/L (8-55); AST (SGOT) 7 U/L (5-34); Albumin 3.7 g/dL (3.5-5.0); Alkaline Phosphatase 107 U/L (40-150); Anion Gap 24 mmol/L (10-20); BUN (Urea Nitrogen) 56 mg/dL (8.9-20.6); Bilirubin, Total 0.5 mg/dL (0.2-1.2); Calc. Creatinine Clearance 0 mL/min (70-130); Calcium 9.3 mg/dL (7.8-10.44); Carbon Dioxide 25 mmol/L (22-29); Chloride 92 mmol/L (98-107); Estimated GFR-MDRD 6; Globulin 3.9 g/dL (2.4-3.5); Glucose 260 mg/dL (70-105); Lipase 12 U/L (8-78); Potassium 4.4 mmol/L (3.5-5.1); Protein, Total 7.6 g/dL (6.0-8.3); Sodium 137 mmol/L (136-145)
[2019-04-04 00:17] LABS: Base Excess-Venous 1.7 mmol/L (-2.0 to 3.0); Bicarbonate (HCO3v) 27.9 mmol/L (22.0-28.0); CO2 Tension (PvCO2) 50.4 mmHg (40.0-50.0); Calcium, Ionized 1.01 mmol/L (See Comments:); Chloride 98 mmol/L (98-107); Hemoglobin - Calc 11.1 g/dL (14.0-18.0); O2 Tension (PvO2) 113.8 mmHg (35.0-45.0); Potassium 4.2 mmol/L (3.5-5.1); Sodium 135 mmol/L (138-145); T. Carbon Dioxide 29.5 mmol/L (22.0-28.0); pH (Venous) 7.352 (7.320-7.430); vO2 Saturation-calc 98.1 % (60.0-85.0)
[2019-04-04 00:17] LABS: Anisocytosis SLIGHT = 6-15 cells (100X) (0-5/hpf); Band 4 % (5-11); Eosinophils 2 % (0-10); Hemoglobin 10.1 g/dL (14.0-18.0); Lymphocytes 22 % (21-51); MDiff Complete? YES; Mean Corpuscular HGB CONC 32.9 g/dL (32.0-36.0); Mean Corpuscular Hemoglobin 29.7 pg (27.0-31.0); Mean Corpuscular Volume 90.1 fL (78.0-98.0); Mean Platelet Volume 10.1 fL (7.4-10.4); Monocytes 22 % (0-10); Neutrophil 50 % (42-75); Platelet Count 238 thou/uL (130-400); RBC Distribution Width 14.8 % (11.5-14.5); Red Blood Cell (RBC) Count 3.41 mill/uL (4.70-6.10); White Blood Cell (WBC) Count 10.5 thou/uL (4.8-10.8)
== END 2019-04-04 02:19 | disposition home or self-care (01) ==
LOC: ERS 23:09
DX: E10.65 Type 1 diabetes mellitus with hyperglycemia (principal); E78.5 Hyperlipidemia, unspecified; I13.2 Hypertensive heart and chronic kidney disease with heart failure and with stage 5 chronic kidney disease, or end stage renal disease; N18.6 End stage renal disease; E10.22 Type 1 diabetes mellitus with diabetic chronic kidney disease; I50.9 Heart failure, unspecified; F17.210 Nicotine dependence, cigarettes, uncomplicated; Z99.2 Dependence on renal dialysis; Z86.73 Personal history of transient ischemic attack (TIA), and cerebral infarction without residual deficits; Z79.899 Other long term (current) drug therapy; Z79.82 Long term (current) use of aspirin
CPT/HCPCS: 36415; 36416; 71045; 80053; 82010; 82330; 82435; 82803; 83605; 83690; 84132; 84295; 85014; 85025

== ENCOUNTER 2019-07-11 08:41 | Emergency (ER) | payer MEDICARE, MEDICAID ==
--- NOTE | 2019-07-11 09:43 | RAD ---
XR Chest 1 View Portable HISTORY: Patient missed his dialysis treatment COMPARISON: 04/03/2019 FINDINGS: The heart is enlarged but stable. Moderate sized right pleural effusion is again seen. The left lung is clear. Vascular stents in the left subclavian and axillary region are again seen. No pneumothoraces are identified. IMPRESSION: Moderate right-sided pleural effusion.
[2019-07-11 09:55] LABS: #Eosinphils 0.2 thou/uL (0.0-0.7); #Lymphocytes 1.2 thou/uL (1.20-3.40); #Monocytes 0.6 thou/uL (0.11-0.59); #Neutrophils 2.2 thou/uL (1.40-6.50); %Basophils 0.7 % (0.0-1.0); %Lymphocytes 29.2 % (21.0-51.0); %Monocytes 13.9 % (0.0-10.0); %Neutrophils 51.2 % (42.0-75.0); Hemoglobin 11.9 g/dL (14.0-18.0); Mean Corpuscular HGB CONC 34.3 g/dL (32.0-36.0); Mean Corpuscular Hemoglobin 29.6 pg (27.0-31.0); Mean Corpuscular Volume 86.3 fL (78.0-98.0); Mean Platelet Volume 10.9 fL (7.4-10.4); Platelet Count 148 thou/uL (130-400); RBC Distribution Width 14.6 % (11.5-14.5); Red Blood Cell (RBC) Count 4.01 mill/uL (4.70-6.10); White Blood Cell (WBC) Count 4.3 thou/uL (4.8-10.8)
[2019-07-11 10:16] LABS: ALT (SGPT) Less than 7 U/L (8-55); AST (SGOT) 8 U/L (5-34); Albumin 3.9 g/dL (3.5-5.0); Alkaline Phosphatase 136 U/L (40-150); Anion Gap 25 mmol/L (10-20); BUN (Urea Nitrogen) 122 mg/dL (8.9-20.6); Bilirubin, Total 0.5 mg/dL (0.2-1.2); Calc. Creatinine Clearance 0 mL/min (70-130); Calcium 7.8 mg/dL (7.8-10.44); Carbon Dioxide 19 mmol/L (22-29); Chloride 97 mmol/L (98-107); Estimated GFR-MDRD 3; Globulin 3.3 g/dL (2.4-3.5); Glucose 326 mg/dL (70-105); Magnesium 2.9 mg/dL (1.6-2.6); Protein, Total 7.2 g/dL (6.0-8.3); Sodium 134 mmol/L (136-145)
[2019-07-11 10:22] LABS: Potassium 7.4 mmol/L (3.5-5.1)
[2019-07-11 13:21] LABS: HBSAg Index 0.14 S/CO (0-0.99); Hep B Surf Ag Non-Reactive S/CO (NonReactive)
== END 2019-07-11 18:12 | disposition home or self-care (01) ==
LOC: ERS 08:41
DX: I13.2 Hypertensive heart and chronic kidney disease with heart failure and with stage 5 chronic kidney disease, or end stage renal disease (principal); E10.22 Type 1 diabetes mellitus with diabetic chronic kidney disease; N18.6 End stage renal disease; E87.5 Hyperkalemia; E78.00 Pure hypercholesterolemia, unspecified; Z86.73 Personal history of transient ischemic attack (TIA), and cerebral infarction without residual deficits; Z99.2 Dependence on renal dialysis; F17.210 Nicotine dependence, cigarettes, uncomplicated; Z79.899 Other long term (current) drug therapy; Z79.82 Long term (current) use of aspirin
CPT/HCPCS: 36415; 71045; 80053; 83605; 83735; 85025; 87340; 90935; 93005; 94760; G0257

== ENCOUNTER 2019-10-15 15:58 | Inpatient (IN) | payer MEDICARE, MEDICAID ==
--- NOTE | 2019-10-15 16:24 | RAD ---
Chest one view HISTORY: Dyspnea. Renal failure. COMPARISON: 07/11/2019. FINDINGS: Cardiac silhouette is magnified, enlarged, and remains predominantly obscured by large amou nt right pleural fluid. Pulmonary vasculature is more engorged than on the prior study. Atelectasis at the right lung base and patchy infiltrate at the left base have progressed slightly. Mediastinum r emains midline. Left axillary and subclavian stents partially visualized. No evidence of pneumothorax. IMPRESSION: Worsening pulmonary vascular congestion and right pleural fluid.
[2019-10-15 16:48] LABS: Hemoglobin 11.4 g/dL (14.0-18.0); Mean Corpuscular HGB CONC 33.5 g/dL (32.0-36.0); Mean Corpuscular Hemoglobin 30.8 pg (27.0-31.0); Mean Corpuscular Volume 91.8 fL (78.0-98.0); Mean Platelet Volume 11.7 fL (7.4-10.4); Platelet Count 102 thou/uL (130-400); Red Blood Cell (RBC) Count 3.71 mill/uL (4.70-6.10); White Blood Cell (WBC) Count 7.8 thou/uL (4.8-10.8)
[2019-10-15 17:01] LABS: Base Excess-Venous -3.9 mmol/L (-2.0 to 3.0); Bicarbonate (HCO3v) 22.7 mmol/L (22.0-28.0); CO2 Tension (PvCO2) 46.6 mmHg (40.0-50.0); Calcium, Ionized 0.99 mmol/L (See Comments:); Chloride 105 mmol/L (98-107); Hemoglobin - Calc 11.8 g/dL (14.0-18.0); Potassium 8.5 mmol/L (3.5-5.1); Sodium 132 mmol/L (138-145); T. Carbon Dioxide 24.2 mmol/L (22.0-28.0); vO2 Saturation-calc 89.1 % (60.0-85.0)
[2019-10-15 17:09] LABS: ALT (SGPT) 11 U/L (8-55); AST (SGOT) 12 U/L (5-34); Albumin 3.8 g/dL (3.5-5.0); Alkaline Phosphatase 151 U/L (40-110); Anion Gap 26 mmol/L (10-20); Bilirubin, Total 0.5 mg/dL (0.2-1.2); Calc. Creatinine Clearance 0 mL/min (70-130); Calcium 9.1 mg/dL (7.8-10.44); Carbon Dioxide 20 mmol/L (22-29); Chloride 97 mmol/L (98-107); Estimated GFR-MDRD 5; Globulin 3.4 g/dL (2.4-3.5); Glucose 171 mg/dL (70-105); Magnesium 2.9 mg/dL (1.6-2.6); Protein, Total 7.2 g/dL (6.0-8.3); Sodium 134 mmol/L (136-145)
[2019-10-15 17:11] LABS: #Eosinphils 0.2 thou/uL (0.0-0.7); #Lymphocytes 1.2 thou/uL (1.20-3.40); #Monocytes 0.7 thou/uL (0.11-0.59); #Neutrophils 5.8 thou/uL (1.40-6.50); %Eosinophils 2.4 % (0.0-10.0); %Lymphocytes 14.9 % (21.0-51.0); %Monocytes 8.4 % (0.0-10.0); %Neutrophils 74.4 % (42.0-75.0); Platelet Morphology Comment Appears Decreased; RBC Morphology Normal
[2019-10-15 17:19] LABS: Potassium 8.8 mmol/L (3.5-5.1)
[2019-10-15 17:22] LABS: BUN (Urea Nitrogen) 121 mg/dL (8.9-20.6)
[2019-10-15] MEDS ORDERED: Insulin Regular 300 UNITS/3 ML VIAL ONE (17:33)
[2019-10-15] MEDS ORDERED: Calcium Chloride 1 GM/10 ML Abboject SYRINGE ONE (17:33)
[2019-10-15] MEDS ORDERED: Sodium Bicarb 50 MEQ/50 ML VIAL ONE ×2 (17:33→18:03)
[2019-10-15] MEDS ORDERED: Dextrose 50% Abboject 50 ML SYRINGE ONE (17:33)
--- NOTE | 2019-10-15 18:01 | PDOC.FPRHP ---
- History of Present Illness Chief Complaint: Not Feeling Well History of Present Illness: Mr. Brush is a 38 y/o male with a PMH significant for ESRD requiring x3 weekly dialysis who presents to the ED because he did not feel well. Per the patient, he missed 2 dialysis treatments in a row because he could not find transportation. Since that time his general condition deteriorated and he "just felt bad" and thought that he might be fluid overloaded. He decided to present to the ED when he fell out of his wheelchair due to weakness, but denies trauma to his head or loss of consciousness. He admits to subjective swelling of his hands and left leg (Note: right leg is amputated) as well as infrequent loose stools. He denies sick contacts, daily headaches, changes in vision, chest pain, shortness of breath, ABD pain, blood or tarry stools as well as N/V. He states that received his flu vaccine this year but is otherwise noncompliant with his medication regimen. ED Course: While in the ED, Mr. Brush was found to have a K of 8.8 and Cr of 14.51, as well as an Anion Gap of 26. EKG showed a widened QRS complex with peaked T-Waves. He received Calcium Gluconate, Bicarbonate, Insulin and D50. Nephrology was consulted by the ED Attending Physician who placed orders for emergent dialysis. - Allergies/Adverse Reactions Allergies Allergy/AdvReac Type Severity Reaction Status Date / Time Penicillins Allergy Unknown Verified 10/15/19 20:06 - Home Medications Medication Instructions Recorded Confirmed Type Sevelamer Carbonate [Renvela] 2,400 mg PO TID- 09/08/15 10/16/19 History Amlodipine Besylate [amLODIPine 10 mg PO DAILY 09/02/16 10/16/19 History Besylate] Cinacalcet HCl [Sensipar] 60 mg PO DAILY 09/02/16 10/16/19 History hydrALAZINE [Apresoline] 25 mg PO TID 09/02/16 10/16/19 History Sertraline HCl 25 mg PO DAILY 03/03/17 10/16/19 History HumaLOG [HumaLOG Vial] 3 units SC TID-WM vial 06/04/18 03/22/19 Rx Insulin Glargine [Lantus Vial] 12 units SC QAM 30 Days #1 vial 06/04/18 Rx levETIRAcetam [Keppra] 500 mg PO BID #60 tab 06/04/18 10/16/19 Rx HumaLOG [HumaLOG Vial] 0 unit SC TID-WM PRN 09/17/18 12/23/18 History Acetaminophen [Tylenol Regular 650 mg PO Q4H PRN tab 09/27/18 03/22/19 Rx Strength] Aspirin [Aspirin EC] 81 mg PO DAILY 02/23/19 10/16/19 History Comments: Obtained from ED staff - patient was unsure of current medication regimen. - History PMHx: Hyperkalemia, ESRD, HTN, DM1 (Poorly Controlled), Polysubstance Abuse PSHx: RLE Amputation FHx: Mother (DM2, CAD, HTN) Social: Patient admits to smoking 0.5 packs of cigarettes per day, as well as MJ and PCP abuse - last used on 10/13. Minimal EtOH. Code Status: Full - Review of Systems General: reports: fatigue. denies: fever/chills, weight/appetite/sleep changes Eyes: denies: vision changes ENT: denies: nasal congestion, rhinorrhea Respiratory: denies: cough, congestion, shortness of breath Cardiovascular: reports: edema. denies: chest pain, palpitation Gastrointestinal: reports: diarrhea. denies: nausea, vomiting, abdominal pain, GI bleeding Genitourinary: reports: other (Patient no longer makes urine) Skin: denies: rashes, lesions Musculoskeletal: denies: pain, tenderness Neurological: reports: weakness. denies: syncope - Vital signs BP: [170/91] HR: [90] RR: [18] Tmax: [97.5] Pox: [97]% on [Room] Wt: [85 kg] - Physical Exam Constitutional: NAD, awake, alert and oriented HEENT: normocephalic and atraumatic, PERRLA, conjunctiva clear, no scleral icterus, grossly normal vision, grossly normal hearing, normal nasal mucosa, MMM , oropharynx clear Neck: supple, FROM, trachea midline, no LAD Chest: no-tender to palpation, no lesions Heart: RRR, normal S1/S2, no murmurs/rubs/gallops, pulses present, other (+1 pitting edema to mid-tibia) Lungs: CTAB, no respiratory distress, good air movement, no rales/rhonchi, no wheezing, no retractions Abdomen: soft, non-tender, bowel sounds present, no masses/distention, no hernias Musculoskeletal: ROM grossly normal, other (Right BKA) Neurological: no focal deficit Skin: good turgor, no jaundice, other (Multiple scaling patches of dry skin, several sores noted on lower extremities) Heme/Lymphatic: no unusual bruising or bleeding, no purpura, no petechia, no LAD Psychiatric: intact recent and remote memory (Poor health insight) FMR H&P: Results - Labs Result Diagrams: 10/16/19 03:39 10/16/19 03:39 Lab results: WBC 7.8 thou/uL (4.8-10.8) 10/15/19 16:34 Hgb 11.4 g/dL (14.0-18.0) L 10/15/19 16:34 Hct 34.0 % (42.0-52.0) L 10/15/19 16:34 MCV 91.8 fL (78.0-98.0) 10/15/19 16:34 Plt Count 102 thou/uL (130-400) L 10/15/19 16:34 Neutrophils % 74.4 % (42.0-75.0) 10/15/19 16:34 VBG pCO2 46.6 mmHg (40.0-50.0) 10/15/19 16:56 VBG pO2 63.1 mmHg (35.0-45.0) H 10/15/19 16:56 Sodium 134 mmol/L (136-145) L 10/15/19 16:34 Potassium 8.8 mmol/L (3.5-5.1) H* 10/15/19 16:34 Chloride 97 mmol/L (98-107) L 10/15/19 16:34 Carbon Dioxide 20 mmol/L (22-29) L 10/15/19 16:34 BUN 121 mg/dL (8.9-20.6) H 10/15/19 16:34 Creatinine 14.51 mg/dL (0.7-1.3) H 10/15/19 16:34 Glucose 171 mg/dL (70-105) H 10/15/19 16:34 Lactic Acid 0.5 mmol/L (0.5-2.2) 10/15/19 16:34 Calcium 9.1 mg/dL (7.8-10.44) 10/15/19 16:34 Total Bilirubin 0.5 mg/dL (0.2-1.2) 10/15/19 16:34 AST 12 U/L (5-34) 10/15/19 16:34 ALT 11 U/L (8-55) 10/15/19 16:34 Alkaline Phosphatase 151 U/L (40-110) H 10/15/19 16:34 B-Natriuretic Peptide 271.9 pg/mL (0-100) H 10/15/19 16:34 Serum Total Protein 7.2 g/dL (6.0-8.3) 10/15/19 16:34 Albumin 3.8 g/dL (3.5-5.0) 10/15/19 16:34 FMR H&P: A/P - Problem List (1) Increased anion gap metabolic acidosis Current Visit: Yes Status: Acute Code(s): E87.2 - ACIDOSIS (2) Hyperkalemia Current Visit: No Status: Acute Priority: High Code(s): E87.5 - HYPERKALEMIA (3) Diabetes mellitus type 1 with complications Current Visit: No Status: Chronic Priority: High Code(s): E10.8 - TYPE 1 DIABETES MELLITUS WITH UNSPECIFIED COMPLICATIONS (4) ESRD (end stage renal disease) on dialysis Current Visit: No Status: Chronic Code(s): N18.6 - END STAGE RENAL DISEASE; Z99.2 - DEPENDENCE ON RENAL DIALYSIS (5) HLD (hyperlipidemia) Current Visit: No Status: Chronic Code(s): E78.5 - HYPERLIPIDEMIA, UNSPECIFIED (6) Hypertension Current Visit: No Status: Chronic Code(s): I10 - ESSENTIAL (PRIMARY) HYPERTENSION Qualifiers: Hypertension type: essential hypertension Qualified Code(s): I10 - Essential (primary) hypertension (7) Polysubstance abuse Current Visit: No Status: Chronic Priority: Low Code(s): F19.10 - OTHER PSYCHOACTIVE SUBSTANCE ABUSE, UNCOMPLICATED (8) Tobacco abuse Current Visit: No Status: Chronic Code(s): Z72.0 - TOBACCO USE (9) Seizure Current Visit: No Status: Chronic Code(s): R56.9 - UNSPECIFIED CONVULSIONS - Plan Patient is a 38 y/o male admitted to the [facility] after missing 2 hemodialysis treatments and not feeling well. 1. Hyperkalemia -K: 8.8 on 10/15 -EKG: Widened QRS w/ peaked T Waves -s/p Calcium Gluconate, Bicarb, Insulin and D50 in ED -Plan for urgent hemodialysis -Repeat BMP: Pending -Repeat EKG: Pending -Trend K and monitor for resolution of abnormal EKG findings 2. Anion Gap Metabolic Acidosis -A on 10/15/19 -Multiple electrolyte abnormalities noted - likely 2/2 #3 -Will plan for urgent hemodialysis and trend electrolytes with AM labs 3. ESRD, Dialysis Dependent -Recently missed 2 consecutive hemodialysis appointments -Planning for urgent hemodialysis on 10/15/19 -Multiple electrolyte abnormalities noted -Ca: 9.1 on 10/16 - will hold home dose of Renelva and Cincalcet -Nephrology: Consulted, recs appreciated 4. DM1, Poorly Controlled -Patient unsure of current medication regimen -Will initiate Lantus 12U daily w/ Humalog 3U SC ACHS -Aggressive Sliding Scale Insulin -Accuchecks Q4H 5. Hx of Seizure Disorder -No recent seizure-like activity -Will begin home regimen of Keppra 500 mg PO BID 6. HTN -Patient unsure of current medication regimen -Will begin home regimen of Hydralazine 25 mg PO TID, Amlodipine 10 mg PO daily 7. Polysubstance Abuse -Patient admits to recent MJ and PCP abuse -No signs of acute intoxication or withdrawal at this time -Continue to monitor - initiate ASE Protocol if cognition deteriorates 8. Tobacco Abuse -Nicotine Patch 14 mg daily -Continue to bereavement counselor on importance of tobacco abuse cessation Code: Full Diet: Renal, High Protein w/ Fluid Restriction (1500 ml) Activity: Strict Bed Rest VTE PPx: Heparin 5000U SC BID Dispo: Patient is currently stable and admitted to the [facility]. Nephrology consulted with recommendation for urgent hemodialysis. Manage chronic comorbidities and monitor for resolution of Hyperkalemia. Expected LOS > 48H. FMR H&P: Upper Level - Pertinent history 38 y/o M PMHx ESRD on HD MWF, DM1, HTN presents to the ED due to SOB and feeling heavy. He reports he missed dialysis Monday and Monday. His wellness specialist is Dr. Gonzalez. He reports he has been feeling more and more heavy and it has been difficult for him to breathe. This has happened before when he misses dialysis. - Pertinent findings Vitals: BP 179/96, HR 85, RR 18, Temp 97.5, O2 sat 92% on RA, Weight 83kg PE: Gen - alert, oriented, resting comfortably in bed CV - RRR Lungs - CTAB Abd - soft, NTTP Ext - R BKA, L leg with 2+ pitting edema in foot Labs: Na 134, K 8.8, BUN 121, Cr 14.51, Mag 2.9 CXR: worsening pulmonary vascular congestion, R pleural fluid EKG: peaked T waves, 1st degree AV block - Plan Date/Time: 10/15/191800 I, Tuyet Pruitt MD, PGY-3, have evaluated this patient and agree with findings/ plan as outlined by internet programmer resident. Pertinent changes/additions are listed here. Hyperkalemia 2/2 missed dialysis. Given calcium, sodium bicarb, Insulin and D50 in the ED. -Dr. Hurd has been consulted, appreciate recs. Plan for emergent dialysis -Monitor BMP after dialysis Volume Overload 2/2 missed dialysis -Monitor in IMCU -Emergent dialysis as above ESRD on HD Pt gets dialysis MWF -Dr. Hurd has been consulted, appreciate recs -Continue dialysis per his recs DM1 -Accuchecks -Resume home meds -SSI -Hypoglycemia protocol Polysubstance abuse Pt with h/o marijuana, PCP, and tobacco abuse. Smokes 1/2 ppd and reports last Marijuana use was 2 days ago -Ad Operations Associate on cessation Dispo: Admit to IMCU LOS: likely greater than 2 days VTE ppx: Heparin Addendum - Attending - Attending Attestation Date/Time: 10/16/192049 I personally evaluated the patient and discussed the management with Dr. Ruiz and Sonal at the time of admission. I agree with the History, Examination, Assessment and Plan documented above with any addition or exceptions noted below.
[2019-10-15] MEDS ORDERED: Calcium Carbonate 500 MG ChewTAB PO PRN (19:14)
[2019-10-15] MEDS ORDERED: Dextrose 50% Abboject 50 ML SYRINGE SLOW IVP PRN (19:25)
[2019-10-15] MEDS ORDERED: Dextrose 5% in Water 1,000 ML IV PRN (19:25)
[2019-10-15] MEDS ORDERED: Acetaminophen 325 MG TAB PO PRN (20:01)
[2019-10-15 20:10] VITALS: BMI 27.6
[2019-10-15 20:47] LABS: Troponin I Less than 0.010 ng/mL (< 0.028)
--- NOTE | 2019-10-15 20:55 | PDOC.BPN ---
- Brief Progress Note Date/Time: 10/15/192052 I personally evaluated the patient and discussed the management with Dr. Ruiz and Sonal at time of admission. I agree with the History, Examination, Assessment and Plan documented above with any addition or exceptions noted below. While he is a complex patient, his admission is for hyperkalemia due to missed HD. He is stable and HD has been arranged for tonight by Nephro team.
--- NOTE | 2019-10-15 21:41 | CON ---
DATE OF CONSULTATION: 10/15/2019 CONSULTING PHYSICIAN: Pascual Crouch MD REASON FOR CONSULTATION: End-stage renal disease evaluation and care. REASON FOR ADMISSION: Not feeling well. HISTORY OF PRESENT ILLNESS: A 38-year-old male with history of end-stage renal disease, hypertension, hyperlipidemia, type 2 diabetes, came to the hospital with above complaints. The patient missed at least two sessions of dialysis and remains fluid overloaded and was found to have hyperkalemia. In the ER, Nephrology was consulted. The patient was due for dialysis yesterday. No fever or chills. No nausea or vomiting. He is short of breath. PAST MEDICAL HISTORY: Positive for end-stage renal disease, on hemodialysis on Monday, Monday, and Monday, hyperparathyroidism, hypertension, seizure disorder, hyperlipidemia. PAST SURGICAL HISTORY: Dialysis access surgery. HOME MEDICATIONS: Reviewed include; 1. Renvela. 2. Amlodipine. 3. Sensipar. 4. Hydralazine. 5. Humalog. 6. Lantus. 7. Keppra. SOCIAL HISTORY: History of smoking and illicit drug abuse. Alcohol abuse reported. FAMILY HISTORY: No history of kidney disease. REVIEW OF SYSTEMS: CONSTITUTIONAL: Negative for weight loss or gain, ability to conduct usual activities. SKIN: Negative for rash, itching. EYES: Negative for double vision, pain. ENT/MOUTH: Negative for nose bleeding, neck stiffness, pain, tenderness. CARDIOVASCULAR: Negative for palpitations, dyspnea on exertion, orthopnea. RESPIRATORY: Negative for shortness of breath, wheezing, cough, hemoptysis, fever or night sweats. GASTROINTESTINAL: Negative for poor appetite, abdominal pain, heartburn, nausea, vomiting, constipation, or diarrhea. GENITOURINARY: Negative for urgency, frequency, dysuria, nocturia. MUSCULOSKELETAL: Negative for pain, swelling. NEUROLOGIC/PSYCHIATRIC: Negative for anxiety, depression. ALLERGY/IMMUNOLOGIC: Negative for skin rash, bleeding tendency. PHYSICAL EXAMINATION: GENERAL: This is a well-built male, in no apparent distress. VITAL SIGNS: Temperature 96, pulse 78, respiratory rate 18, blood pressure 178/84. HEENT: Atraumatic, normocephalic. Oral mucosa moist. NECK: Supple. CV: S1, S2 heard. Rate and rhythm regular. RESPIRATORY: Clear. GI: Abdomen is soft. MUSCULOSKELETAL: 2 to 3+ facial edema present. NEUROLOGIC: Alert and awake. PSYCHIATRIC: Mood and affect normal. LABORATORY DATA: Hemoglobin 11.4, potassium 8.5; 8.8 on arrival, bicarb is 20, BUN is 121, creatinine is 14.5. ASSESSMENT AND PLAN: 1. End-stage renal disease with severe uremia and fluid overload and severe life-threatening hyperkalemia. Plan is to do emergent dialysis. Dialysis nurse notified and is aware. 2. Severe life-threatening hyperkalemia. We will have emergent dialysis. 3. Acidosis. We will have dialysis. 4. Uremia. 5. Fluid overload. Plan is to remove fluid as tolerated. 6. Elevated BNP. 7. Anemia of chronic disease, noncompliance, consult. 8. History of seizure. 9. History of type 2 diabetes. 10. Prognosis guarded. The patient is high risk for complications. Plan is to do emergent dialysis as soon as we can and dialysis nurse notified for emergent dialysis. Thank you for the consult. I will follow. Job ID: [id number]
[2019-10-15 23:07] LABS: Troponin I 0.013 ng/mL (< 0.028)
[2019-10-16] MEDS: Nicotine 14 MG PATCH TD SCH ×2 (00:22→21:35)
[2019-10-16] MEDS: Heparin 5,000 UNITS/ML VIAL SC SCH ×3 (00:22→21:34)
[2019-10-16 04:27] LABS: Anion Gap 19 mmol/L (10-20); BUN (Urea Nitrogen) 50 mg/dL (8.9-20.6); Calc. Creatinine Clearance 15 mL/min (70-130); Calcium 8.9 mg/dL (7.8-10.44); Carbon Dioxide 26 mmol/L (22-29); Chloride 99 mmol/L (98-107); Estimated GFR-MDRD 9; Glucose 146 mg/dL (70-105); Potassium 5.6 mmol/L (3.5-5.1); Sodium 138 mmol/L (136-145)
[2019-10-16 04:52] LABS: #Eosinphils 0.2 thou/uL (0.0-0.7); #Monocytes 0.6 thou/uL (0.11-0.59); #Neutrophils 3.6 thou/uL (1.40-6.50); %Basophils 0.2 % (0.0-1.0); %Eosinophils 3.2 % (0.0-10.0); %Lymphocytes 18.3 % (21.0-51.0); %Monocytes 11.4 % (0.0-10.0); Hemoglobin 10.8 g/dL (14.0-18.0); Mean Corpuscular HGB CONC 33.3 g/dL (32.0-36.0); Mean Corpuscular Hemoglobin 30.4 pg (27.0-31.0); Mean Corpuscular Volume 91.1 fL (78.0-98.0); Mean Platelet Volume 12.1 fL (7.4-10.4); Platelet Count 95 thou/uL (130-400); Platelet Morphology Comment Appears Decreased; RBC Distribution Width 15.9 % (11.5-14.5); Red Blood Cell (RBC) Count 3.57 mill/uL (4.70-6.10); White Blood Cell (WBC) Count 5.4 thou/uL (4.8-10.8)
--- NOTE | 2019-10-16 06:00 | PDOC.FM ---
- Subjective Subjective: Pt reports he is feeling better this morning. He states that he missed dialysis because of diarrhea the first day and because he was in the bathroom when transportation came the second day. He states he did not call anyone to try an arrange dialysis. He denies SOB, chest pain, abdominal pain, or fever. - Objective MAR Reviewed: Yes Vital Signs & Weight: Vital Signs (12 hours) Temp Pulse Ox 10/16/19 04:00 95 10/16/19 03:36 98.7 F 10/15/19 23:45 98.1 F 10/15/19 23:30 97 Weight Weight 84.776 kg Most Recent Monitor Data Heart Rate from ECG 98 NIBP 160/83 NIBP BP-Mean 108 Respiration from ECG 13 SpO2 90 I&O: 10/14/19 10/15/19 10/16/19 06:59 06:59 06:59 Intake Total 240 Balance 240 Result Diagrams: 10/16/19 03:39 10/16/19 03:39 Phys Exam - Physical Examination Constitutional: NAD HEENT: PERRLA, moist MMs, sclera anicteric Neck: no JVD Respiratory: no wheezing, clear to auscultation bilateral Cardiovascular: RRR 2/6 systolic murmur at right sternal border Gastrointestinal: soft, non-tender, no distention, positive bowel sounds Musculoskeletal: pulses present, edema present (2+ pitting edema to mid calf on left, BKA on right) Neurological: moves all 4 limbs Psychiatric: A&O x 3 Skin: cap refill <2 seconds Dx/Plan (1) Increased anion gap metabolic acidosis Code(s): E87.2 - ACIDOSIS Status: Acute (2) Hyperkalemia Code(s): E87.5 - HYPERKALEMIA Status: Acute (3) Anxiety and depression Code(s): F41.9 - ANXIETY DISORDER, UNSPECIFIED; F32.9 - MAJOR DEPRESSIVE DISORDER, SINGLE EPISODE, UNSPECIFIED Status: Chronic (4) Diabetes mellitus type 1 Code(s): E10.9 - TYPE 1 DIABETES MELLITUS WITHOUT COMPLICATIONS Status: Chronic (5) Diarrhea Code(s): R19.7 - DIARRHEA, UNSPECIFIED Status: Chronic (6) ESRD (end stage renal disease) on dialysis Code(s): N18.6 - END STAGE RENAL DISEASE; Z99.2 - DEPENDENCE ON RENAL DIALYSIS Status: Chronic - Plan Plan: This is a 38 yo male with a pmh of ESRD on HD, DM1, polysubstance abuse Hyperkalemia -S/P emergent dialysis, currently 5.6, down from 8.8 -Associated wide QRS and peaked T waves on admission, resolved on repeat EKG early this AM -Continue dialysis per nephrology Anion Gap Betaoboic acidosis, improving -Gap at 19 this AM, bicarb 26 -Likely a process of ESRD ESRD -Nephro consulted -s/p dialysis DM1 -Continue lanuts 12u daily w/ humalog 3u SC ACHS -Aggressive SSI, Q4 accuchecks Anemia of chronic diseases -Will monitor, currently stable Hx of seizures -Continue home keppra HTN -Hydralazine 25mg PO TID, amlodipine 10 mg daily -Will monitor and adjust Polysubstance abuse -Will monitor for withdraw Tobacco abuse -Nicotine patch Addendum - Attending - Attending Attestation Date/Time: 10/16/19 8801 I personally evaluated the patient and discussed the management with Dr. Hdz I agree with the History, Examination, Assessment and Plan documented above with any addition or exceptions noted below. Improved with 1 round HD. Awaiting nephro recs. Dispo pending nephro. transfer out of [facility] to [facility].
[2019-10-16] MEDS ORDERED: Insulin Glargine 20 UNITS in Pre-Filled Syringe SC SCH (09:00)
[2019-10-16] MEDS: Amlodipine 10 MG TAB PO SCH (10:29)
[2019-10-16] MEDS: HumaLOG 300 UNITS/3 ML VIAL SC SCH ×4 (10:29→22:14)
[2019-10-16] MEDS: Aspirin 81 mg Enteric Coated Tablet PO SCH (10:29)
[2019-10-16] MEDS: Insulin Glargine 12 UNITS in Pre-Filled Syringe 1 EACH SC SCH (10:30)
[2019-10-16] MEDS: levETIRAcetam 500 MG TAB PO SCH ×2 (10:30→21:35)
[2019-10-16] MEDS: hydrALAZINE 25 MG TAB PO SCH ×3 (10:30→21:35)
[2019-10-16] MEDS: HumaLOG 300 UNITS/3 ML VIAL SC PRN (12:14)
--- NOTE | 2019-10-16 13:09 | PRG ---
DATE OF SERVICE: 10/16/2019 SUBJECTIVE: Patient was seen and examined at bedside and overnight events noted. Patient denies any shortness of breath or chest pain or palpitation. No history of nausea or vomiting or diarrhea or fever or chills or cramps. OBJECTIVE: GENERAL: This is a well-built male, in no apparent distress. VITAL SIGNS: Temperature 99.6. Heart rate 90. Respiratory rate 18. Blood pressure 152/70. HEENT: Atraumatic, normocephalic. Oral mucosa is moist NECK: Supple. CARDIOVASCULAR: S1, S2 heard. Rate and rhythm regular. RESPIRATORY: Clear to auscultation. GASTROINTESTINAL: Abdomen is soft. MUSCULOSKELETAL: No tenderness. No edema. DERMATOLOGIC: No skin rash. NEUROLOGIC: Alert and awake and oriented X3. No focal neurologic deficits. Moving all the extremities. PSYCHIATRIC: Mood and affect normal. LABORATORY DATA: Potassium 5.6, BUN is 50, creatinine is 7.8. ASSESSMENT AND PLAN: 1. End-stage renal disease. Continue dialysis as tolerated. 2. Uremia, better. 3. Hyperkalemia, better. 4. Acidosis. 5. Fluid overload. 6. History of seizure. 7. History of type 2 diabetes. Labs are better, but we will continue on dialysis. Plan to have dialysis today, then continue dialysis Monday, Monday, and Monday as tolerated. Job ID: [id number]
--- NOTE | 2019-10-17 06:19 | PDOC.FM ---
- Subjective Subjective: Pt states he is feeling much better this morning. He denies SOB, chest pain, or abdominal pain. He states his legs look better this AM - Objective MAR Reviewed: Yes Vital Signs & Weight: Vital Signs (12 hours) Temp Pulse Ox 10/17/19 03:43 97.8 F 10/16/19 23:49 98.2 F 10/16/19 20:00 97 10/16/19 19:38 98.4 F Weight Weight 81.2 kg Most Recent Monitor Data Heart Rate from ECG 98 NIBP 110/85 NIBP BP-Mean 93 Respiration from ECG 15 SpO2 94 I&O: 10/15/19 10/16/19 10/17/19 06:59 06:59 06:59 Intake Total 240 1000 Balance 240 1000 Result Diagrams: 10/16/19 03:39 10/17/19 06:53 Phys Exam - Physical Examination Constitutional: NAD GCS [id number] HEENT: moist MMs Neck: no JVD Cardiovascular: RRR Gastrointestinal: soft, non-tender, no distention, positive bowel sounds Musculoskeletal: pulses present, edema present (trace edema, improved from yesterday) Neurological: moves all 4 limbs Psychiatric: A&O x 3 Skin: cap refill <2 seconds Dx/Plan (1) Increased anion gap metabolic acidosis Code(s): E87.2 - ACIDOSIS Status: Acute (2) Hyperkalemia Code(s): E87.5 - HYPERKALEMIA Status: Acute (3) Anxiety and depression Code(s): F41.9 - ANXIETY DISORDER, UNSPECIFIED; F32.9 - MAJOR DEPRESSIVE DISORDER, SINGLE EPISODE, UNSPECIFIED Status: Chronic (4) Diabetes mellitus type 1 Code(s): E10.9 - TYPE 1 DIABETES MELLITUS WITHOUT COMPLICATIONS Status: Chronic (5) Diarrhea Code(s): R19.7 - DIARRHEA, UNSPECIFIED Status: Chronic (6) ESRD (end stage renal disease) on dialysis Code(s): N18.6 - END STAGE RENAL DISEASE; Z99.2 - DEPENDENCE ON RENAL DIALYSIS Status: Chronic - Plan Plan: This is a 38 yo male with a pmh of ESRD on HD, DM1, polysubstance abuse Hyperkalemia -S/P emergent dialysis, currently 5.6, down from 8.8 -Continue dialysis per nephrology Anion Gap Betaoboic acidosis, improving -Gap at 19 this AM, bicarb 26 -Likely a process of ESRD ESRD -Nephro consulted -s/p dialysis DM1 -Continue lanuts 12u daily w/ humalog 3u SC ACHS -Aggressive SSI, Q4 accuchecks Anemia of chronic diseases -Will monitor, currently stable Hx of seizures -Continue home keppra HTN -Hydralazine 25mg PO TID, amlodipine 10 mg daily -Will monitor and adjust Polysubstance abuse -Will monitor for withdraw Tobacco abuse -Nicotine patch Addendum - Attending - Attending Attestation Date/Time: 10/17/19 1107 I personally evaluated the patient and discussed the management with Dr. Hdz I agree with the History, Examination, Assessment and Plan documented above with any addition or exceptions noted below. Significantly improved today. potassium trended up today. Will verify with nephro need for repeat HD before discharging home.
[2019-10-17 07:22] LABS: Anion Gap 18 mmol/L (10-20); BUN (Urea Nitrogen) 40 mg/dL (8.9-20.6); Calc. Creatinine Clearance 17 mL/min (70-130); Calcium 9.1 mg/dL (7.8-10.44); Carbon Dioxide 28 mmol/L (22-29); Chloride 99 mmol/L (98-107); Estimated GFR-MDRD 11; Glucose 235 mg/dL (70-105); Potassium 5.9 mmol/L (3.5-5.1); Sodium 139 mmol/L (136-145)
[2019-10-17] MEDS: HumaLOG 300 UNITS/3 ML VIAL SC SCH ×2 (07:24→12:11)
[2019-10-17] MEDS: HumaLOG 300 UNITS/3 ML VIAL SC PRN (07:25)
[2019-10-17] MEDS: Insulin Glargine 12 UNITS in Pre-Filled Syringe 1 EACH SC SCH (09:51)
[2019-10-17] MEDS: Aspirin 81 mg Enteric Coated Tablet PO SCH (09:51)
[2019-10-17] MEDS: Amlodipine 10 MG TAB PO SCH (09:52)
[2019-10-17] MEDS: hydrALAZINE 25 MG TAB PO SCH ×2 (09:53→16:32)
[2019-10-17] MEDS: levETIRAcetam 500 MG TAB PO SCH (09:53)
[2019-10-17 09:58] VITALS: BP 130/77
[2019-10-17] MEDS: Heparin 5,000 UNITS/ML VIAL SC SCH (10:06)
[2019-10-17 10:25] VITALS: TEMP 97.8
--- NOTE | 2019-10-17 13:16 | EKG ---
Test Reason : ROUTINE Blood Pressure : / mmHG Vent. Rate : 095 BPM Atrial Rate : 095 BPM P-R Int : 132 ms QRS Dur : 080 ms QT Int : 338 ms P-R-T Axes : 078 109 058 degrees QTc Int : 424 ms Normal sinus rhythm Rightward axis Low voltage QRS Cannot rule out Anteroseptal infarct , age undetermined Abnormal ECG Confirmed by CRAIG MARCANO ([id number]) on 10/17/2019 1:15:58 PM Referred By: [email or web address] Confirmed By:CRAIG MARCANO
--- NOTE | 2019-10-17 13:18 | PRG ---
DATE OF SERVICE: 10/17/2019 SUBJECTIVE: Patient was seen and examined at bedside and overnight events noted. Patient denies any shortness of breath or chest pain or palpitation. No history of nausea or vomiting or diarrhea or fever or chills or cramps. OBJECTIVE: GENERAL: This is a well-built male, in no acute distress. VITAL SIGNS: Temperature 97.8. Heart rate 80. Respiratory rate 18. Blood pressure 180/96. HEENT: Atraumatic, normocephalic. Oral mucosa is moist NECK: Supple. CARDIOVASCULAR: S1, S2 heard. Rate and rhythm regular. RESPIRATORY: Clear to auscultation. GASTROINTESTINAL: Abdomen is soft. MUSCULOSKELETAL: No tenderness. No edema. DERMATOLOGIC: No skin rash. NEUROLOGIC: Alert and awake and oriented X3. No focal neurologic deficits. Moving all the extremities. PSYCHIATRIC: Mood and affect normal. LABORATORY DATA: Potassium 5.9, BUN is 40, and creatinine is 6.7. ASSESSMENT AND PLAN: 1. End-stage renal disease. We will have dialysis today and then continue dialysis as tolerated. 2. Uremia, better. 3. Hyperkalemia, limit potassium. 4. Acidosis. 5. Fluid overload. 6. History of type 2 diabetes. 7. History of seizure. We will continue on dialysis as tolerated. Plan to have dialysis today for hyperkalemia. Job ID: [id number]
== END 2019-10-17 17:05 | disposition home or self-care (01) | DRG 640 ==
LOC: ERS 15:58 → IMCU/EMU 17:46
PROVIDERS: ADMIT Family Medicine; ATTEND Family Medicine
PROC: 5A1D70Z Performance of Urinary Filtration, Intermittent, Less than 6 Hours Per Day (ICD-10-PCS; principal; 2019-10-15)
DX: E87.5 Hyperkalemia (principal); N18.6 End stage renal disease; I12.0 Hypertensive chronic kidney disease with stage 5 chronic kidney disease or end stage renal disease; E87.2 Acidosis; Z99.2 Dependence on renal dialysis; Z88.0 Allergy status to penicillin; Z79.4 Long term (current) use of insulin; Z79.82 Long term (current) use of aspirin; F17.210 Nicotine dependence, cigarettes, uncomplicated; F19.10 Other psychoactive substance abuse, uncomplicated; G40.909 Epilepsy, unspecified, not intractable, without status epilepticus; E11.22 Type 2 diabetes mellitus with diabetic chronic kidney disease; E87.70 Fluid overload, unspecified; Z91.15 Patient's noncompliance with renal dialysis
CPT/HCPCS: 36415; 36416; 71045; 80048; 80053; 82330; 82803; 83605; 83735; 83880; 84484; 85025; 87804; 93005; 93010; 94760; 96374; 96375; J1644; J1815

== ENCOUNTER 2019-10-30 10:30 | Emergency (ER) | payer MEDICARE, MEDICAID ==
[2019-10-30 12:23] LABS: #Eosinphils 0.1 thou/uL (0.0-0.7); #Lymphocytes 1.4 thou/uL (1.20-3.40); #Monocytes 0.6 thou/uL (0.11-0.59); #Neutrophils 3.5 thou/uL (1.40-6.50); %Basophils 0.5 % (0.0-1.0); %Eosinophils 1.6 % (0.0-10.0); %Lymphocytes 24.4 % (21.0-51.0); %Monocytes 10.8 % (0.0-10.0); %Neutrophils 62.7 % (42.0-75.0); Hemoglobin 11.4 g/dL (14.0-18.0); Mean Corpuscular HGB CONC 32.6 g/dL (32.0-36.0); Mean Corpuscular Hemoglobin 29.5 pg (27.0-31.0); Mean Corpuscular Volume 90.2 fL (78.0-98.0); Mean Platelet Volume 11.5 fL (7.4-10.4); Platelet Count 112 thou/uL (130-400); RBC Distribution Width 14.8 % (11.5-14.5); Red Blood Cell (RBC) Count 3.87 mill/uL (4.70-6.10); White Blood Cell (WBC) Count 5.6 thou/uL (4.8-10.8)
[2019-10-30 12:45] LABS: ALT (SGPT) 21 U/L (8-55); AST (SGOT) 13 U/L (5-34); Albumin 4.1 g/dL (3.5-5.0); Alkaline Phosphatase 130 U/L (40-110); Anion Gap 21 mmol/L (10-20); BUN (Urea Nitrogen) 65 mg/dL (8.9-20.6); Bilirubin, Total 0.4 mg/dL (0.2-1.2); Calc. Creatinine Clearance 0 mL/min (70-130); Calcium 9.5 mg/dL (7.8-10.44); Carbon Dioxide 29 mmol/L (22-29); Chloride 95 mmol/L (98-107); Estimated GFR-MDRD 8; Globulin 3.6 g/dL (2.4-3.5); Glucose 376 mg/dL (70-105); Protein, Total 7.7 g/dL (6.0-8.3); Sodium 140 mmol/L (136-145)
[2019-10-30 13:22] LABS: Base Excess-Venous 1.2 mmol/L (-2.0 to 3.0); Bicarbonate (HCO3v) 29.3 mmol/L (22.0-28.0); CO2 Tension (PvCO2) 61.9 mmHg (40.0-50.0); Calcium, Ionized 1.09 mmol/L (See Comments:); Chloride 98 mmol/L (98-107); Hemoglobin - Calc 12.4 g/dL (14.0-18.0); Potassium 4.7 mmol/L (3.5-5.1); Sodium 138 mmol/L (138-145); T. Carbon Dioxide 31.2 mmol/L (22.0-28.0); vO2 Saturation-calc 83.3 % (60.0-85.0)
[2019-10-30] MEDS ORDERED: Insulin Regular 300 UNITS/3 ML VIAL ONE (14:06)
== END 2019-10-30 14:35 | disposition home or self-care (01) ==
LOC: ERS 10:30
DX: E10.65 Type 1 diabetes mellitus with hyperglycemia (principal); E78.5 Hyperlipidemia, unspecified; I13.2 Hypertensive heart and chronic kidney disease with heart failure and with stage 5 chronic kidney disease, or end stage renal disease; I50.9 Heart failure, unspecified; N18.6 End stage renal disease; E78.00 Pure hypercholesterolemia, unspecified; F17.210 Nicotine dependence, cigarettes, uncomplicated; Z79.82 Long term (current) use of aspirin; Z79.899 Other long term (current) drug therapy; Z86.73 Personal history of transient ischemic attack (TIA), and cerebral infarction without residual deficits
CPT/HCPCS: 36416; 80053; 82330; 82803; 85025; 99285; J1815

== ENCOUNTER 2019-11-24 13:21 | Inpatient (IN) | payer MEDICARE, MEDICAID ==
[2019-11-24 14:10] LABS: Hemoglobin 11.1 g/dL (14.0-18.0); Mean Corpuscular HGB CONC 31.7 g/dL (32.0-36.0); Mean Corpuscular Hemoglobin 29.3 pg (27.0-31.0); Mean Corpuscular Volume 92.5 fL (78.0-98.0); Mean Platelet Volume 13.4 fL (7.4-10.4); Platelet Count 107 thou/uL (130-400); RBC Distribution Width 14.6 % (11.5-14.5); Red Blood Cell (RBC) Count 3.79 mill/uL (4.70-6.10); White Blood Cell (WBC) Count 7.8 thou/uL (4.8-10.8)
[2019-11-24 14:28] LABS: ALT (SGPT) 13 U/L (8-55); AST (SGOT) 13 U/L (5-34); Alkaline Phosphatase 139 U/L (40-110); Bilirubin, Total 0.6 mg/dL (0.2-1.2); Calc. Creatinine Clearance 0 mL/min (70-130); Calcium 8.4 mg/dL (7.8-10.44); Chloride 95 mmol/L (98-107); Estimated GFR-MDRD 3; Globulin 3.1 g/dL (2.4-3.5); Glucose 446 mg/dL (70-105); Protein, Total 7.1 g/dL (6.0-8.3); Sodium 131 mmol/L (136-145)
[2019-11-24 14:29] LABS: Base Excess-Venous -24.3 mmol/L (-2.0 to 3.0); Bicarbonate (HCO3v) 8.1 mmol/L (22.0-28.0); CO2 Tension (PvCO2) 42.2 mmHg (40.0-50.0); Calcium, Ionized 0.95 mmol/L (See Comments:); Chloride 108 mmol/L (98-107); Hemoglobin - Calc 11.3 g/dL (14.0-18.0); Potassium 7.8 mmol/L (3.5-5.1); Sodium 125 mmol/L (138-145); T. Carbon Dioxide 9.4 mmol/L (22.0-28.0)
[2019-11-24 14:30] LABS: Carbon Dioxide Less than 8 mmol/L (22-29); Potassium 8.2 mmol/L (3.5-5.1)
[2019-11-24 14:34] LABS: Anisocytosis SLIGHT = 6-15 cells (100X) (0-5/hpf); Band 8 % (5-11); Hypochromia SLIGHT = 6-15 cells (100X) (0-5/hpf); Large Platelets SLIGHT; Lymphocytes 11 % (21-51); MDiff Complete? YES; Monocytes 9 % (0-10); Neutrophil 72 % (42-75); Platelet Morphology Comment Appears Decreased; Polychromasia SLIGHT = 2-3 cells (100X) (0-2/hpf)
[2019-11-24 14:41] LABS: BUN (Urea Nitrogen) 165 mg/dL (8.9-20.6)
[2019-11-24] MEDS ORDERED: Calcium Chloride 1 GM/10 ML Abboject SYRINGE ONE ×2 (14:47→14:49)
[2019-11-24] MEDS ORDERED: Sodium Bicarb 50 MEQ/50 ML VIAL ONE (14:47)
[2019-11-24] MEDS ORDERED: Albuterol Sulfate 2.5 mg/3 ml Neb ONE (14:48)
[2019-11-24] MEDS ORDERED: Albuterol Sulfate 2.5 mg/0.5 ml Neb ONE (14:48)
[2019-11-24] MEDS ORDERED: Insulin Regular 300 UNITS/3 ML VIAL ONE (14:53)
--- NOTE | 2019-11-24 15:38 | RAD ---
Exam: Chest one view: HISTORY: Hyperglycemia COMPARISON: 10/15/2019 Bilateral vascular congestion. Large right pleural effusion somewhat larger than on the prior study. Heart size is within normal limits. IMPRESSION: Larger right pleural effusion with bilateral vascular congestion
--- NOTE | 2019-11-24 15:39 | PDOC.FPRHP ---
- History of Present Illness Chief Complaint: Weakness, Cold Intolerance History of Present Illness: Pt is a 39 yo AAM with a history of CHF, DM1, ESRD, Right BKA, CVAx2, HLD, HTN, and Depression who presents for weakness and cold intolerance. He has not been sick recently. He has Dialysis on MWF, but he did not get it this past Monday. He says he has not been sick recently. No changes in diet or meds. ED Course: He was given 10 U of Novolin, Albuterol, CaCl, 2 Amps of Bicarb, NS 250 cc. - Allergies/Adverse Reactions Allergies Allergy/AdvReac Type Severity Reaction Status Date / Time Penicillins Allergy Unknown Verified 10/15/19 20:06 - Home Medications Medication Instructions Recorded Confirmed Type Sevelamer Carbonate [Renvela] 2,400 mg PO TID-WM 09/08/15 10/16/19 History Amlodipine Besylate [amLODIPine 10 mg PO DAILY 09/02/16 10/16/19 History Besylate] Cinacalcet HCl [Sensipar] 60 mg PO DAILY 09/02/16 10/16/19 History hydrALAZINE [Apresoline] 25 mg PO TID 09/02/16 10/16/19 History Sertraline HCl 25 mg PO DAILY 03/03/17 10/16/19 History HumaLOG [HumaLOG Vial] 3 units SC TID-WM vial 06/04/18 03/22/19 Rx Insulin Glargine [Lantus Vial] 12 units SC QAM 30 Days #1 vial 06/04/18 Rx levETIRAcetam [Keppra] 500 mg PO BID #60 tab 06/04/18 10/16/19 Rx HumaLOG [HumaLOG Vial] 0 unit SC TID-WM PRN 09/17/18 12/23/18 History Acetaminophen [Tylenol Regular 650 mg PO Q4H PRN tab 09/27/18 03/22/19 Rx Strength] Aspirin [Aspirin EC] 81 mg PO DAILY 02/23/19 10/16/19 History - History PMHx: CHF, DM1, ESRD on MWF dialysis, Right BKA, CVAx2, HLD, HTN, Depression PSHx: Rt BKA, L fistula reomved, Right fisual recently placed, right vasc cath ( subclavian) FHx: n/c Social:10 year smoking history, endorses marijuana and PCP use - Review of Systems General: denies: fever/chills Eyes: denies: vision changes ENT: denies: nasal congestion, rhinorrhea Respiratory: reports: shortness of breath. denies: cough, congestion Cardiovascular: reports: edema. denies: chest pain Gastrointestinal: reports: diarrhea. denies: nausea, vomiting Skin: denies: rashes Musculoskeletal: reports: pain (back) Neurological: reports: numbness - Vital signs BP: 108/56 HR: 67 RR: 20 Pox: 96% on RA Wt: 79.2 kg - Physical Exam Constitutional: NAD HEENT: normal nasal mucosa, MMM, oropharynx clear Neck: supple, trachea midline Lungs: CTAB, no respiratory distress, good air movement, no wheezing Abdomen: soft, non-tender, bowel sounds present Musculoskeletal: normal structure, normal tone Neurological: no focal deficit Skin: no rash/lesions Heme/Lymphatic: no unusual bruising or bleeding Psychiatric: normal mood and affect FMR H&P: Results - Labs Result Diagrams: 11/24/19 13:59 11/24/19 16:32 Lab results: WBC 7.8 thou/uL (4.8-10.8) 11/24/19 13:59 Hgb 11.1 g/dL (14.0-18.0) L 11/24/19 13:59 Hct 35.1 % (42.0-52.0) L 11/24/19 13:59 MCV 92.5 fL (78.0-98.0) 11/24/19 13:59 Plt Count 107 thou/uL (130-400) L 11/24/19 13:59 Band Neuts % (Manual) 8 % (5-11) 11/24/19 13:59 VBG pCO2 42.2 mmHg (40.0-50.0) 11/24/19 14:29 VBG pO2 222.8 mmHg (35.0-45.0) H 11/24/19 14:29 Sodium 131 mmol/L (136-145) L 11/24/19 13:59 Potassium 8.2 mmol/L (3.5-5.1) H* 11/24/19 13:59 Chloride 95 mmol/L (98-107) L 11/24/19 13:59 Carbon Dioxide Less than 8 mmol/L (22-29) L* 11/24/19 13:59 BUN 165 mg/dL (8.9-20.6) H 11/24/19 13:59 Creatinine 18.94 mg/dL (0.7-1.3) H 11/24/19 13:59 Glucose 446 mg/dL (70-105) H 11/24/19 13:59 Calcium 8.4 mg/dL (7.8-10.44) 11/24/19 13:59 Total Bilirubin 0.6 mg/dL (0.2-1.2) 11/24/19 13:59 AST 13 U/L (5-34) 11/24/19 13:59 ALT 13 U/L (8-55) 11/24/19 13:59 Alkaline Phosphatase 139 U/L (40-110) H 11/24/19 13:59 Serum Total Protein 7.1 g/dL (6.0-8.3) 11/24/19 13:59 Albumin 4.0 g/dL (3.5-5.0) 11/24/19 13:59 FMR H&P: A/P - Problem List (1) Hyperkalemia Current Visit: No Status: Acute Priority: High Code(s): E87.5 - HYPERKALEMIA (2) Increased anion gap metabolic acidosis Current Visit: No Status: Acute Code(s): E87.2 - ACIDOSIS (3) Diabetes mellitus type 1 Current Visit: No Status: Chronic Code(s): E10.9 - TYPE 1 DIABETES MELLITUS WITHOUT COMPLICATIONS (4) ESRD (end stage renal disease) on dialysis Current Visit: No Status: Chronic Code(s): N18.6 - END STAGE RENAL DISEASE; Z99.2 - DEPENDENCE ON RENAL DIALYSIS (5) Hypertension Current Visit: No Status: Chronic Code(s): I10 - ESSENTIAL (PRIMARY) HYPERTENSION Qualifiers: Hypertension type: essential hypertension Qualified Code(s): I10 - Essential (primary) hypertension (6) Polysubstance abuse Current Visit: No Status: Chronic Priority: Low Code(s): F19.10 - OTHER PSYCHOACTIVE SUBSTANCE ABUSE, UNCOMPLICATED (7) Seizure Current Visit: No Status: Chronic Code(s): R56.9 - UNSPECIFIED CONVULSIONS (8) DKA (diabetic ketoacidoses) Current Visit: No Status: Resolved Code(s): E13.10 - OTH DIABETES MELLITUS WITH KETOACIDOSIS WITHOUT COMA - Plan Patient is a 39 y/o AAM admitted to the [facility] after missing hemodialysis treatment and fatigue. 1. Hyperkalemia -K: 8.2 -EKG: Widened QRS w/ peaked T Waves -s/p 10 U of Novolin, Albuterol Neb, 100 mg CaCl, 2 Amps of Bicarb, 250 cc NS -Plan for urgent hemodialysis. Dr. Gonzalez has been consulted -Repeat BMP: Pending -Trend K and monitor for resolution of abnormal EKG findings 2. Anion Gap Metabolic Acidosis -A -Multiple electrolyte abnormalities noted - likely 2/2 #3 & 4 -Will plan for urgent hemodialysis and trend electrolytes with AM labs 3. ESRD, Dialysis Dependent -Recently missed hemodialysis appointment -Planning for urgent hemodialysis today -Multiple electrolyte abnormalities noted -Nephrology: Consulted, recs appreciated 4. DKA 2/2 DM1, Poorly Controlled -Currently on DKA protocol -Will follow with Q4H BMP until Anion Gap closes -Accuchecks Q1H -Currently NPO 5. Hx of Seizure Disorder -No recent seizure-like activity -Will begin home regimen of Keppra 500 mg PO BID based on last admission 6. HTN -Patient unsure of current medication regimen -Currently hypotensive -Will get a liter of fluids and reassess -May need Central venous access 7. Polysubstance Abuse -Patient admits to recent MJ Code Status: Full Diet: NPO Activity: Ambulate with Assist, Fall precautions VTE PPx: SCDs due to low platelet count Dispo: CCU inpt, LOS > 48H. FMR H&P: Upper Level - Pertinent history 39 yo male with hyperkalemia and DKA, admitted for emergent dialysis and DKA protocol. Pt has type 1 diabetes, has trouble with compliance, and has ESRD on HD MWF. He missed dialysis Monday. Dr. Gonzalez notified in the ED. VSS. BP low normal. Pt to be emergently dialyzed in the CCU. DKA protocol ordered as well. Serial, q4h BMPs until GAP closed. WIll transition from insulin drip to IM at that time. NPO currently until gap closes. Will monitor closely. - Plan Date/Time: 11/24/19 9033 I, [], have evaluated this patient and agree with findings/plan as outlined by newsroom intern resident. Pertinent changes/additions are listed here. Addendum - Attending - Attending Attestation Date/Time: 11/24/19 1793 I personally evaluated the patient and discussed the management with Dr. Pittman. I agree with the History, Examination, Assessment and Plan documented above with any addition or exceptions noted below. The patient presented to the ER not feeling well and complaining of being cold. He has esrd and missed dialysis this past week. He is not oriented and changes the day that he says he missed. He is severely hyperkalemic with potassium of 8.1. He is also a noncompliant diabetic with a ph of 6.89. He is in dka. Nephrology has been consulted and will emergently dialyze pt. He has received albuterol nebs insulin and fluids. Will continue to check labs after dialysis and follow dka protocol. Pt is admitted to the ccu.
[2019-11-24] MEDS ORDERED: Bisacodyl 5 MG TAB PO PRN (16:04)
[2019-11-24] MEDS ORDERED: Acetaminophen 325 MG Suppository PR PRN (16:04)
[2019-11-24] MEDS ORDERED: NS 0.9% w/ 20 MEQ KCL 1,000 ML IV PRN ×2 (16:04)
[2019-11-24] MEDS ORDERED: Senokot S 8.6-50 MG TAB PO PRN (16:04)
[2019-11-24] MEDS ORDERED: Sodium Chloride 0.9% 1,000 ML IV PRN ×3 (16:04)
[2019-11-24] MEDS ORDERED: Dextrose 5 %-0.45 % NaCl 1,000 ML IV PRN (16:04)
[2019-11-24] MEDS ORDERED: CCU Electrolyte Replacement 1 EACH IVPB SCH ×2 (16:04)
[2019-11-24] MEDS ORDERED: Acetaminophen 325 MG/10.15 ML UDCUP PO PRN (16:04)
[2019-11-24] MEDS ORDERED: HUMULIN R 100 UNITS in Sodium Chloride 0.9% 100 ML IVPB SCH (16:15)
[2019-11-24] MEDS ORDERED: Potassium Phosphate 12 MMOL in Sodium Chloride 0.9% 250 ML 250 ML IV PRN (16:42)
[2019-11-24] MEDS ORDERED: Potassium Phosphate 9 MMOL in Sodium Chloride 0.9% 100 ML IVPB PRN (16:42)
[2019-11-24] MEDS ORDERED: Magnesium 2 GM/50 ML 2 GM in Premix Bag 1 BAG IVPB PRN (16:42)
[2019-11-24] MEDS ORDERED: PHOS-NAK 1 PKT PACK PO PRN ×2 (16:42)
[2019-11-24] MEDS ORDERED: Potassium Chloride 40 MEQ in Sodium Chloride 0.9% 250 ML 250 ML IVPB PRN (16:42)
[2019-11-24] MEDS ORDERED: Magnesium Oxide 400 MG TAB PO PRN ×2 (16:42)
[2019-11-24] MEDS ORDERED: Potassium Phosphate 15 MMOL in Sodium Chloride 0.9% 250 ML 250 ML IV PRN (16:42)
[2019-11-24] MEDS ORDERED: Potassium Chloride 20 MEQ TAB PO PRN (16:42)
[2019-11-24] MEDS ORDERED: Potassium Chloride 40 MEQ in Premix Bag 1 BAG IVPB PRN (16:42)
[2019-11-24 17:01] LABS: Anion Gap 40 mmol/L (10-20); Calc. Creatinine Clearance 0 mL/min (70-130); Calcium 8.6 mg/dL (7.8-10.44); Chloride 96 mmol/L (98-107); Estimated GFR-MDRD 3; Glucose 427 mg/dL (70-105); Magnesium 3.2 mg/dL (1.6-2.6); Sodium 137 mmol/L (136-145)
[2019-11-24 17:04] LABS: Carbon Dioxide 8 mmol/L (22-29); Phosphorus 10.8 mg/dL (2.3-4.7); Potassium 6.9 mmol/L (3.5-5.1)
[2019-11-24 17:12] LABS: BUN (Urea Nitrogen) 156 mg/dL (8.9-20.6)
[2019-11-24 17:18] LABS: Hep B Core Total Ab Non-Reactive (NonReactive); Hep B Core Total Index 0.05 S/CO (0-0.79)
[2019-11-24 17:19] LABS: HBSAg Index 0.16 S/CO (0-0.99); Hep B Surf Ag Non-Reactive S/CO (NonReactive)
[2019-11-24 17:20] LABS: Hep C IgG Ab Non-Reactive (NonReactive); Hep C Index 0.05 S/CO (0-0.79)
[2019-11-24 17:22] LABS: Hep B Surf AB Reactive (NonReactive)
[2019-11-24 18:50] VITALS: BMI 23.8
[2019-11-24 21:00] LABS: Anion Gap 37 mmol/L (10-20); Calc. Creatinine Clearance 6 mL/min (70-130); Calcium 8.5 mg/dL (7.8-10.44); Chloride 98 mmol/L (98-107); Estimated GFR-MDRD 3; Glucose 372 mg/dL (70-105); Potassium 6.4 mmol/L (3.5-5.1); Sodium 138 mmol/L (136-145)
[2019-11-24] MEDS ORDERED: Famotidine 20 MG TAB PO SCH (21:00)
[2019-11-24 21:03] LABS: Carbon Dioxide 9 mmol/L (22-29)
[2019-11-24 21:11] LABS: BUN (Urea Nitrogen) 152 mg/dL (8.9-20.6)
--- NOTE | 2019-11-24 23:02 | PDOC.OP ---
Operative Note - Operative Note Operative Note: INDICATION: Need for centrally acting medications PROCEDURE MEAT CUTTING BLOCK REPAIRER: Dr. Neeru Mane and Dr. Ben Mclean ATTENDING PHYSICIAN: Dr. Chito Novak assisted with and supervised. Ultrasound Used: Y CONSENT: Two physician consent was obtained prior to the procedure. Silvestre capacity for informed consent is limited. Our opinion is that he was at significant risk of without central line access. Patient has complex medical conditions, and was hypotensive in spite of fluids and interventions since admission. PROCEDURE SUMMARY: A time out was performed. My hands were washed immediately prior to the procedure. I wore a surgical cap, mask with protective eyewear, sterile gown and sterile gloves throughout the procedure. The RIGHT inguinal region was prepped using chlorhexidine scrub and draped in sterile fashion using a full drape and sterile probe cover employed. The femoral pulse was identified. Anesthesia was achieved using 1% lidocaine. Identifying the femoral vein with ultrasound throughout the procedure, the introducer needle was inserted medial to the femoral artery, inferior to the inguinal crease and into the femoral vein. Venous blood was withdrawn. The syringe was removed and a guidewire was advanced into the introducer needle. A small incision was made at the skin surface with a scalpel and the introducer needle was exchanged for a dilator over the guidewire. After appropriate dilation was obtained, the dilator was exchanged over the wire for a triple lumen central venous catheter. The wire was removed and the catheter was sutured in place. A sterile sorbaview shield was placed over the catheter at the insertion site. The patient tolerated the procedure without any hemodynamic compromise. At time of procedure completion, all ports aspirated and flushed properly. Estimated blood loss is 10ml.
[2019-11-24] MEDS ORDERED: Norepinephrine 8 MG/0.9% NS 250 ML ONE (23:07)
[2019-11-24] MEDS ORDERED: Norepinephrine 8 MG/0.9% NS 250 ML IVPB SCH (23:15)
[2019-11-24] MEDS: Sodium Chloride 0.9% 1,000 ML IV PRN (23:19)
[2019-11-24] MEDS: levETIRAcetam 500 MG TAB PO SCH (23:21)
[2019-11-24] MEDS ORDERED: Vancomycin HCl 750 MG in Sodium Chloride 0.9% 250 ML 250 ML IVPB SCH (23:30)
[2019-11-24] MEDS ORDERED: Vancomycin HCl 500 MG in Sodium Chloride 0.9% 100 ML IVPB SCH (23:30)
[2019-11-24] MEDS ORDERED: Vancomycin HCl 1 GM in Premix Bag 1 BAG IVPB SCH (23:30)
[2019-11-24] MEDS ORDERED: Vancomycin 1.5 GRAM/300 ML BAG 1.5 GM in Premix Bag 1 BAG IVPB SCH (23:30)
[2019-11-24] MEDS ORDERED: Vancomycin HCl 1.25 GM in Sodium Chloride 0.9% 250 ML 250 ML IVPB SCH (23:30)
[2019-11-24] MEDS ORDERED: HOLD VANCOMYCIN FOR LEVEL >20 FS SCH (23:30)
[2019-11-25 00:47] LABS: CKMB 15.4 ng/mL (0-6.6)
[2019-11-25 01:06] LABS: Anion Gap 31 mmol/L (10-20); BUN (Urea Nitrogen) 93 mg/dL (8.9-20.6); Calc. Creatinine Clearance 10 mL/min (70-130); Calcium 8.7 mg/dL (7.8-10.44); Carbon Dioxide 15 mmol/L (22-29); Chloride 97 mmol/L (98-107); Estimated GFR-MDRD 6; Glucose 159 mg/dL (70-105); Potassium 4.5 mmol/L (3.5-5.1); Sodium 138 mmol/L (136-145)
--- NOTE | 2019-11-25 01:18 | CON ---
DATE OF CONSULTATION: 11/24/2019 REASON FOR CONSULTATION: Hyperkalemia. HISTORY OF PRESENT ILLNESS: This is a 39-year-old noncompliant patient, who presented in the hospital with a potassium of 8.2. The patient can give no further history. Has altered mental status. The patient was hypertensive. PAST MEDICAL HISTORY: End-stage renal disease, hypertension, amputation, anemia, CKD, hyperphosphatemia, secondary hyperparathyroidism, diabetes mellitus, CVA, AV fistula, tunneled dialysis catheter, and multiple surgeries. SOCIOECONOMIC HISTORY: He has drug use. ALLERGIES: REVIEWED. MEDICATIONS: Home medications list, reviewed. Hospital medications list, reviewed. REVIEW OF SYSTEMS: Unobtainable. PHYSICAL EXAMINATION: GENERAL: The patient is resting. VITAL SIGNS: Afebrile, pulse 75, breathing 16, and blood pressure 122/70. HEAD/NECK: Normocephalic. Atraumatic. EYES: EOMI. No deformity. EARS: Clear. No ulcers. NOSE: Intact. No lesions. MOUTH: Clear. No discharge. THROAT: Clear. No exudate. LUNGS: Clear. No crackles. CARDIAC: S1, S2. No rub. ABDOMEN: Benign. Bowel sounds positive. GENITALIA/RECTUM: [place] absent. BACK/EXTREMITIES: Edema 0+. NEUROLOGICAL: The patient is confused. SKIN: LYMPHATICS: LABORATORY DATA: Labs show potassium 8.2, bicarb 8. ASSESSMENT AND PLAN: 1. Stage 6 chronic kidney disease. Plan, urgent hemodialysis. 2. Hyperkalemia. Plan, dialysis. 3. Acidosis. Plan, dialysis. Overall prognosis is poor. Compliance. civil service worker will be consulted. Job ID: [id number]
[2019-11-25] MEDS: Sodium Chloride 0.9% 1,000 ML IV PRN (01:53)
[2019-11-25] MEDS ORDERED: Cefepime 1 GM in Sodium Chloride 0.9% 100 ML IVPB SCH (02:00)
[2019-11-25] MEDS: Ondansetron PF 4 MG/2 ML Vial IVP PRN ×2 (02:01→18:26)
[2019-11-25] MEDS: D5 1/2 NS w/20 mEq KCL 1,000 ML IV PRN ×2 (02:12→05:23)
[2019-11-25 04:41] LABS: ALT (SGPT) 11 U/L (8-55); AST (SGOT) 12 U/L (5-34); Albumin 3.6 g/dL (3.5-5.0); Alkaline Phosphatase 121 U/L (40-110); Anion Gap 21 mmol/L (10-20); BUN (Urea Nitrogen) 70 mg/dL (8.9-20.6); Bilirubin, Total 0.5 mg/dL (0.2-1.2); Calc. Creatinine Clearance 11 mL/min (70-130); Calcium 7.8 mg/dL (7.8-10.44); Carbon Dioxide 22 mmol/L (22-29); Chloride 98 mmol/L (98-107); Estimated GFR-MDRD 7; Globulin 2.8 g/dL (2.4-3.5); Glucose 139 mg/dL (70-105); Potassium 4.9 mmol/L (3.5-5.1); Protein, Total 6.4 g/dL (6.0-8.3); Sodium 136 mmol/L (136-145)
[2019-11-25 05:09] LABS: Band 16 % (5-11); Hemoglobin 9.5 g/dL (14.0-18.0); Lymphocytes 4 % (21-51); MDiff Complete? YES; Mean Corpuscular HGB CONC 33.1 g/dL (32.0-36.0); Mean Corpuscular Hemoglobin 28.8 pg (27.0-31.0); Mean Corpuscular Volume 87.1 fL (78.0-98.0); Mean Platelet Volume 12.3 fL (7.4-10.4); Monocytes 3 % (0-10); Neutrophil 77 % (42-75); Platelet Count 83 thou/uL (130-400); Platelet Morphology Comment Appears Decreased; RBC Distribution Width 14.5 % (11.5-14.5); Red Blood Cell (RBC) Count 3.28 mill/uL (4.70-6.10); White Blood Cell (WBC) Count 11.2 thou/uL (4.8-10.8)
[2019-11-25 07:05] LABS: CKMB 12.1 ng/mL (0-6.6)
--- NOTE | 2019-11-25 07:51 | PDOC.FM ---
- Subjective Subjective: Pt reports feeling better, no acute complaints. Nurse reports improved mental status overnight. - Objective Vital Signs & Weight: Vital Signs (12 hours) Temp Pulse Ox 11/25/19 06:20 98 11/25/19 04:00 97.8 F 11/25/19 03:00 94 L 11/25/19 01:00 98.1 F 11/25/19 00:15 97.6 F 11/24/19 21:37 97.4 F L 11/24/19 20:00 97 Weight Weight 77.5 kg Most Recent Monitor Data Heart Rate from ECG 100 NIBP 135/67 NIBP BP-Mean 89 Respiration from ECG 18 SpO2 95 I&O: 11/24/19 11/25/19 11/26/19 06:59 06:59 06:59 Intake Total 4406.1 Output Total 0 Balance 4406.1 Result Diagrams: 11/25/19 03:55 11/25/19 03:55 Phys Exam - Physical Examination Constitutional: NAD HEENT: moist MMs, sclera anicteric Neck: full ROM Respiratory: no wheezing, clear to auscultation bilateral Cardiovascular: RRR, no significant murmur Gastrointestinal: soft, non-tender Musculoskeletal: no edema, pulses present Neurological: normal sensation Psychiatric: normal affect Deviation from normal: a and o to person and place Skin: no rash, normal turgor Dx/Plan (1) Thrombocytopenia Code(s): D69.6 - THROMBOCYTOPENIA, UNSPECIFIED Status: Acute (2) Anxiety and depression Code(s): F41.9 - ANXIETY DISORDER, UNSPECIFIED; F32.9 - MAJOR DEPRESSIVE DISORDER, SINGLE EPISODE, UNSPECIFIED Status: Chronic (3) Diabetes mellitus type 1 with complications Code(s): E10.8 - TYPE 1 DIABETES MELLITUS WITH UNSPECIFIED COMPLICATIONS Status: Chronic (4) ESRD (end stage renal disease) on dialysis Code(s): N18.6 - END STAGE RENAL DISEASE; Z99.2 - DEPENDENCE ON RENAL DIALYSIS Status: Chronic (5) HLD (hyperlipidemia) Code(s): E78.5 - HYPERLIPIDEMIA, UNSPECIFIED Status: Chronic (6) Hypertension Code(s): I10 - ESSENTIAL (PRIMARY) HYPERTENSION Status: Chronic Qualifiers: Hypertension type: essential hypertension Qualified Code(s): I10 - Essential (primary) hypertension (7) Marijuana abuse, continuous Code(s): F12.10 - CANNABIS ABUSE, UNCOMPLICATED Status: Chronic (8) Polysubstance abuse Code(s): F19.10 - OTHER PSYCHOACTIVE SUBSTANCE ABUSE, UNCOMPLICATED Status: Chronic (9) DKA (diabetic ketoacidoses) Code(s): E13.10 - OTH DIABETES MELLITUS WITH KETOACIDOSIS WITHOUT COMA Status : Resolved (10) Hyperkalemia Code(s): E87.5 - HYPERKALEMIA Status: Resolved - Plan Plan: Patient is a 39 y/o AAM with pmh of ESRD on HD, history of chronic non compliance to dialysis and medication regimen admitted for hyperkalemia and DKA DKA 2/2 DM1, Poorly Controlled A- Currently on DKA protocol, BG has improved greatly however anion gap remains 16 this AM. P- f/u on repeat metabolic panel, will likely be able to transition to SC insulin soon -Accuchecks Q1H -Currently NPO ESRD, Dialysis Dependent A- dialyzed last night. 1.7 liters pulled off. Nephrology: Consulted, recs appreciated P- possible dialysis again this AM hypotension A- hypotension during dialysis last night, required 1 hour of pressors, this has been weaned and BP is normalized P- will monitor BP Hx of Seizure Disorder A- No recent seizure-like activity P- Home Keppra 500mg BID HTN A- Patient unsure of current medication regimen, he has been hypotensive up to this AM P- will review chart and restart meds as BP increases Polysubstance Abuse -Patient admits to recent MJ Hyperkalemia, resolved -K: 8.2 on admission, 4.9 this morning thrombocytopenia -likely 2/2 ESRD, MD aware Code Status: Full Diet: NPO Activity: Ambulate with Assist, Fall precautions VTE PPx: SCDs due to low platelet count
[2019-11-25] MEDS ORDERED: Insulin Glargine 12 UNITS in Pre-Filled Syringe 1 EACH SC SCH (09:15)
[2019-11-25 09:41] LABS: Anion Gap 21 mmol/L (10-20); BUN (Urea Nitrogen) 69 mg/dL (8.9-20.6); Calc. Creatinine Clearance 11 mL/min (70-130); Calcium 7.7 mg/dL (7.8-10.44); Carbon Dioxide 21 mmol/L (22-29); Chloride 98 mmol/L (98-107); Estimated GFR-MDRD 7; Glucose 105 mg/dL (70-105); Potassium 5.6 mmol/L (3.5-5.1); Sodium 134 mmol/L (136-145)
--- NOTE | 2019-11-25 09:44 | CON ---
DATE OF CONSULTATION: HISTORY OF PRESENT ILLNESS: A 39-year-old gentleman who was admitted to the hospital with marked weakness. Apparently, he has missed dialysis, came with elevated potassium, 3 times a week dialysis secondary to end-stage diabetes, peripheral neuropathy. Most recent dialysis was made last night. He tells me it is hurting all over. Denies any difficulty breathing, chest pain, chills, or sweats. PAST MEDICAL HISTORY: Diabetes, renal failure, high cholesterol, hypertension. PAST SURGICAL HISTORY: Right BK amputation, access dialysis shunt, chronic right pleural effusion. SOCIAL HISTORY: Tobacco, half pack. Smokes PCP. No alcohol. HOME MEDICATIONS: Include: 1. Lantus 12 units a day. 2. Hydralazine 25. 3. Zoloft 25. 4. Aspirin. 5. Amlodipine 10. ALLERGIES: PENICILLIN. REVIEW OF SYSTEMS: Otherwise, 10-point negative. PHYSICAL EXAMINATION: GENERAL: He is awake, alert, responsive. VITAL SIGNS: Saturations are 93%, pulse 84, blood pressure 140/82, respirations 13. CHEST: Decreased breath sounds, right lung. Left lung unremarkable. Has occasional rhonchi. CARDIAC: Normal S1 and S2. No gallops. ABDOMEN: Soft. EXTREMITIES: Right BK amputation. LABORATORY DATA: White count 11,000, platelet count is low 83, H and H are 8 and 29. Creatinine is 9. Lytes are blood sugar 141 and admission potassium was 8.2. ASSESSMENT: 1. Hyperkalemia. Failed dialysis. 2. End-stage renal disease. 3. Diabetes. 4. Peripheral neuropathy. 5. Chronic pleural effusion. 6. Thrombocytopenia. PLAN: Agree with broad-spectrum antibiotics. Deescalate once we get the cultures back. Otherwise, supportive care, PT. Restart home Lantus. 70 minutes consultation note, 50 minutes direct patient care. Job ID: [id number]
--- NOTE | 2019-11-25 10:09 | PRG ---
DATE OF SERVICE: 11/25/2019 SUBJECTIVE: Patient was seen and examined at bedside and overnight events noted. Patient denies any shortness of breath or chest pain or palpitation. No history of nausea or vomiting or diarrhea or fever or chills or cramps. OBJECTIVE: GENERAL: This is a well-built male, in no apparent distress. VITAL SIGNS: Temperature 97.8. Pulse 94. Respiratory rate . Blood pressure 109/72. HEENT: Atraumatic, normocephalic. Oral mucosa is moist NECK: Supple. CARDIOVASCULAR: S1, S2 heard. Rate and rhythm regular. RESPIRATORY: Clear to auscultation. GASTROINTESTINAL: Abdomen is soft. MUSCULOSKELETAL: No tenderness. No edema. DERMATOLOGIC: No skin rash. NEUROLOGIC: Alert and awake and oriented X3. No focal neurologic deficits. Moving all the extremities. PSYCHIATRIC: Mood and affect normal. LABORATORY DATA: Potassium is 5.6, BUN is 69, and creatinine is 9.9. ASSESSMENT AND PLAN: 1. End-stage renal disease. Plan is to have dialysis today. 2. Hyperkalemia, to have dialysis today. 3. Acidosis, better. We will have dialysis. 4. Edema, remove fluid with dialysis. 5. History of hypertension. 6. History of noncompliance. 7. Anemia of chronic disease. Plan is to have dialysis today for hyperkalemia and acidosis. Continue dialysis on Monday, Monday, and Monday as tolerated. Job ID: [id number]
[2019-11-25] MEDS ORDERED: Sodium Chloride 0.9% 1,000 ML IV SCH (10:15)
[2019-11-25] MEDS: Famotidine 20 MG TAB PO SCH (10:58)
[2019-11-25] MEDS: levETIRAcetam 500 MG TAB PO SCH ×2 (10:58→20:12)
--- NOTE | 2019-11-25 11:03 | PRG ---
DATE OF SERVICE: 11/25/2019 SUBJECTIVE: Mr. Brush is a 39-year-old black male with end-stage renal disease, on dialysis. He is noncompliant and often misses dialysis. He also continues to use illicit drugs. In the event, he came in to the ER with profound renal failure on admission with potassium of 8.2. Nephrology was urgently consulted for emergency dialysis. He was also noted to be in DKA as he is a type 1 diabetic. This morning, he is much improved. I explained to him the nature of his disease and the fact that he absolutely could not miss dialysis. Hemoglobin this morning is 9.5, hematocrit 28.6. His chemistry; sodium 134, potassium now 5.6, chloride 98, bicarb 21, BUN 69 with creatinine of 9.9. We will continue to follow with [employer] consultant and the instrument processing tech. He likely can go to the floor later this afternoon. Job ID: [id number]
[2019-11-25] MEDS ORDERED: Dextrose 5% in Water 1,000 ML IV PRN (11:07)
[2019-11-25] MEDS ORDERED: Dextrose 50% Abboject 50 ML SYRINGE SLOW IVP PRN (11:07)
[2019-11-25] MEDS ORDERED: HumaLOG 300 UNITS/3 ML VIAL SC PRN (11:07)
[2019-11-25] MEDS: HumaLOG 300 UNITS/3 ML VIAL SC SCH ×2 (12:00→18:33)
[2019-11-25 12:46] LABS: Vancomycin, Random 9.1 ug/mL (See Comment)
[2019-11-25] MEDS ORDERED: Promethazine HCl 25 MG in Sodium Chloride 0.9% 50 ML IVPB PRN (20:18)
[2019-11-25] MEDS ORDERED: Dextrose 5 %-0.45 % NaCl 1,000 ML IV SCH (20:30)
[2019-11-26 05:42] LABS: ALT (SGPT) 25 U/L (8-55); AST (SGOT) 34 U/L (5-34); Albumin 3.8 g/dL (3.5-5.0); Alkaline Phosphatase 121 U/L (40-110); Anion Gap 21 mmol/L (10-20); BUN (Urea Nitrogen) 34 mg/dL (8.9-20.6); Bilirubin, Total 0.5 mg/dL (0.2-1.2); Calc. Creatinine Clearance 16 mL/min (70-130); Calcium 8.5 mg/dL (7.8-10.44); Carbon Dioxide 20 mmol/L (22-29); Chloride 99 mmol/L (98-107); Estimated GFR-MDRD 11; Globulin 3.2 g/dL (2.4-3.5); Glucose 113 mg/dL (70-105); Potassium 5.2 mmol/L (3.5-5.1); Sodium 135 mmol/L (136-145)
[2019-11-26 05:59] LABS: Band 2 % (5-11); Lymphocytes 8 % (21-51); MDiff Complete? YES; Mean Corpuscular HGB CONC 33.2 g/dL (32.0-36.0); Mean Corpuscular Hemoglobin 29.1 pg (27.0-31.0); Mean Corpuscular Volume 87.8 fL (78.0-98.0); Mean Platelet Volume 9.7 fL (7.4-10.4); Monocytes 7 % (0-10); Neutrophil 83 % (42-75); Platelet Count 57 thou/uL (130-400); Platelet Morphology Comment Appears Decreased; RBC Distribution Width 14.9 % (11.5-14.5); Red Blood Cell (RBC) Count 3.43 mill/uL (4.70-6.10); White Blood Cell (WBC) Count 7.8 thou/uL (4.8-10.8)
--- NOTE | 2019-11-26 07:30 | PDOC.FM ---
- Subjective Subjective: Feeling much better today. Denies shortness of breath, dizziness, chest pain. Ate almost all of his breakfast. - Objective MAR Reviewed: Yes Vital Signs & Weight: Vital Signs (12 hours) Temp Pulse Resp BP Pulse Ox 11/26/19 07:05 97 11/26/19 07:03 96 16 97 11/26/19 04:33 98.0 F 101 H 20 160/70 H 97 11/26/19 00:39 97.6 F 90 18 161/79 H 98 11/26/19 00:04 74 16 98 11/25/19 20:43 90 16 97 11/25/19 20:04 97.5 F L 76 18 161/71 H 96 11/25/19 19:39 96 Weight Weight 77.5 kg Most Recent Monitor Data Heart Rate from ECG 93 NIBP 150/90 NIBP BP-Mean 110 Respiration from ECG 27 SpO2 92 I&O: 11/25/19 11/26/19 11/27/19 06:59 06:59 06:59 Intake Total 4406.1 1876.7 Output Total 0 Balance 4406.1 1876.7 Result Diagrams: 11/26/19 05:17 11/26/19 05:17 Phys Exam - Physical Examination Constitutional: NAD HEENT: moist MMs Neck: supple Respiratory: no wheezing, clear to auscultation bilateral Cardiovascular: RRR, no significant murmur Gastrointestinal: soft, non-tender, positive bowel sounds trace edema. Right BKA. Neurological: moves all 4 limbs Psychiatric: normal affect, A&O x 3 Skin: normal turgor Dx/Plan - Plan Plan: 39 yo male with pmh of ESRD on HD, history of chronic noncompliance to dialysis and medication regimen admitted for hyperkalemia and DKA Hypothermia - Initial temp 90.1. Currently 98.0 and stable - Flu A/B neg. Blood cxs NGTD - Discontinue Cefepime and Vanc Hypoglycemia - Currently on D51/2NS at 50. Will discontinue as he ate all of breakfast and monitor glucose frequently DMI - Gap closed, no longer on DKA protocol - Lantus 15U qAM, Short acting with meals. Hypoglycemic protocol and CC diet. - Accuchecks ACHS ESRD, Dialysis Dependent - Nephrology consulted, apprec recs Hx of Seizure Disorder - No recent seizure-like activity - Continue home Keppra 500mg BID HTN Polysubstance Abuse - Patient admits to recent Hyperkalemia, resolved -8.2 on admission, 4.9 this morning Thrombocytopenia - likely 2/2 ESRD, aware DKA, resolved Code Status: Full DVT PPx: SCDs due to low platelet count
[2019-11-26] MEDS: HumaLOG 300 UNITS/3 ML VIAL SC SCH ×2 (08:44→12:12)
[2019-11-26] MEDS: levETIRAcetam 500 MG TAB PO SCH (08:46)
[2019-11-26] MEDS: Famotidine 20 MG TAB PO SCH (08:46)
[2019-11-26] MEDS ORDERED: Insulin Glargine 12 UNITS in Pre-Filled Syringe 1 EACH SC SCH (09:00)
[2019-11-26] MEDS ORDERED: levETIRAcetam 500 MG TAB PO SCH (10:15)
[2019-11-26] MEDS ORDERED: Amlodipine 10 MG TAB PO SCH (10:15)
[2019-11-26] MEDS ORDERED: Cinacalcet HCl 30 MG TAB PO SCH (10:15)
[2019-11-26] MEDS ORDERED: Aspirin 81 mg Enteric Coated Tablet PO SCH (10:15)
[2019-11-26] MEDS ORDERED: hydrALAZINE 25 MG TAB PO SCH ×2 (10:15→15:00)
[2019-11-26] MEDS ORDERED: Sevelamer Carbonate 800 MG TAB PO SCH ×2 (10:15→12:00)
--- NOTE | 2019-11-26 10:38 | PRG ---
DATE OF SERVICE: 11/26/2019 Mr. Brush is in an excellent mood this morning and feels fine. We just gathered a report however that one of his blood cultures out of two is growing a gram-positive buck. We had talked about letting him go today, but we will follow up on this positive blood culture and proceed accordingly. Otherwise, clinically, Mr. Brush remains improved and anxious to go home. Job ID: [id number]
[2019-11-26] MEDS: Ondansetron PF 4 MG/2 ML Vial IVP PRN (11:56)
[2019-11-26] MEDS ORDERED: Cefepime 0.5 GM, Admixture Fee 1 EACH in Sodium Chloride 0.9% 100 ML IVPB SCH (15:00)
[2019-11-26 15:34] VITALS: BP 168/80; TEMP 97.5
--- NOTE | 2019-11-26 16:19 | PRG ---
DATE OF SERVICE: 11/26/2019 SUBJECTIVE: Patient was seen and examined at bedside and overnight events noted. Patient denies any shortness of breath or chest pain or palpitation. No history of nausea or vomiting or diarrhea or fever or chills or cramps. OBJECTIVE: GENERAL: This is a well-built male, in no apparent distress. VITAL SIGNS: Temperature 97.9. Heart rate 97. Respiratory rate 20. Blood pressure 152/78. HEENT: Atraumatic, normocephalic. Oral mucosa is moist NECK: Supple. CARDIOVASCULAR: S1, S2 heard. Rate and rhythm regular. RESPIRATORY: Clear to auscultation. GASTROINTESTINAL: Abdomen is soft. MUSCULOSKELETAL: No tenderness. No edema. DERMATOLOGIC: No skin rash. NEUROLOGIC: Alert and awake and oriented X3. No focal neurologic deficits. Moving all the extremities. PSYCHIATRIC: Mood and affect normal. LABORATORY DATA: Potassium is 5.2, BUN is 34, and creatinine is 6.7. ASSESSMENT AND PLAN: 1. End-stage renal disease. Continue dialysis on Monday, Monday, and Monday. 2. Hyperkalemia. 3. Acidosis. 4. Edema. 5. Hypertensive. 6. Noncompliance. 7. Anemia of chronic disease. Hyperkalemia better, limit potassium intake. We will continue dialysis on Monday, Monday, and Monday. Job ID: [id number]
--- NOTE | 2019-11-26 20:17 | DIS ---
DATE OF ADMISSION: 11/24/2019 DATE OF DISCHARGE: 11/26/2019 RESIDENT: Taisha Núñez, PGY-2. ADMITTING ATTENDING: Juliet Stroud MD DISCHARGE ATTENDING: Medardo Shah MD CONSULTS: 1. Nephrology. 2. Pulmonology. PROCEDURES: Chest x-ray on 11/24/2019, larger right pleural effusion with bilateral vascular congestion. PRIMARY DIAGNOSES: 1. Hypothermia. 2. Diabetic ketoacidosis. SECONDARY DIAGNOSES: 1. Type 1 diabetes. 2. End stage renal disease, on dialysis. 3. History of seizure disorder. 4. Hypertension. 5. Polysubstance abuse. 6. Hyperkalemia. 7. Thrombocytopenia. 8. Hypoglycemia. DISCHARGE MEDICATIONS: 1. Sertraline 25 mg daily. 2. Lantus 12 units subcu q.a.m. 3. Tylenol 650 mg q.4 hours p.r.n. 4. Amlodipine 10 mg daily. 5. Aspirin 81 mg daily. 6. Sensipar 60 mg daily. 7. Humalog 3 units subcu t.i.d. 8. Hydralazine 25 mg t.i.d. 9. Lantus 12 units subcu q.a.m. 10. Keppra 500 mg b.i.d. 11. Renvela 2400 mg p.o. t.i.d.. HISTORY OF PRESENT ILLNESS/HOSPITAL COURSE: Mr. Brush is a 39-year-old male with past medical history of CHF, type 1 diabetes, end-stage renal disease, on hemodialysis; right BKA, CVA x2, hyperlipidemia, hypertension, presented with hypothermia and weakness. In the ED, he was given 10 units of Novolin. He was found to be in DKA secondary to type 1 diabetes, poorly controlled with an anion gap of 28 and beta hydroxybutyrate of 8.45. He was given for his potassium of 8.2, as well as two amps of bicarb and normal saline 250 mL. Nephrology was consulted for urgent dialysis. He was started on the DKA protocol and BMP was checked q.4 hours. A central line was placed. His gap closed and potassium decreased to 4.9 and had a bounce of 5.2 prior to discharge. He is being followed by Nephrology for dialysis. He was treated with cefepime and vancomycin for his and hypothermia. Blood cultures were negative and these were discontinued. In regard to his DKA, he was resumed on Lantus 15 units and short-acting with meals. He did become a little hypoglycemic, so was started on D5 half-normal saline for a period a time, but once he began to eat, this normalized and was discontinued. In regard to his history of seizure disorder, he was continued on Keppra. He was managed with SCDs for DVT prophylaxis as he was thrombocytopenic at 107 and 57 at discharge, it is likely related to his end-stage renal disease. DISPOSITION: Stable. DISCHARGE INSTRUCTIONS: 1. Location: Home. 2. Diet: Renal, high-protein, fluid restriction, carb consistent. 3. Activity: No restrictions. 4. Follow up with Nephrology for hemodialysis, Dr. Mckinley at [facility] and [facility] [email or web address]] within 5 days. Job ID: [id number]
[2019-11-27] MEDS ORDERED: Amlodipine 10 MG TAB PO SCH (09:00)
[2019-11-27] MEDS ORDERED: Cinacalcet HCl 30 MG TAB PO SCH (09:00)
[2019-11-27] MEDS ORDERED: Aspirin 81 mg Enteric Coated Tablet PO SCH (09:00)
== END 2019-11-26 17:53 | disposition home or self-care (01) | DRG 637 ==
LOC: ERS 13:21 → CCU 15:59 → T4-A 11-25 18:18
PROVIDERS: ADMIT Family Medicine; ATTEND Family Medicine
PROC: 06HY33Z Insertion of Infusion Device into Lower Vein, Percutaneous Approach (ICD-10-PCS; principal; 2019-11-24)
PROC: 5A1D70Z Performance of Urinary Filtration, Intermittent, Less than 6 Hours Per Day (ICD-10-PCS; 2019-11-24)
DX: E10.10 Type 1 diabetes mellitus with ketoacidosis without coma (principal); N18.6 End stage renal disease; I13.2 Hypertensive heart and chronic kidney disease with heart failure and with stage 5 chronic kidney disease, or end stage renal disease; E87.2 Acidosis; J90 Pleural effusion, not elsewhere classified; E87.5 Hyperkalemia; Z99.2 Dependence on renal dialysis; E78.5 Hyperlipidemia, unspecified; Z86.73 Personal history of transient ischemic attack (TIA), and cerebral infarction without residual deficits; Z89.511 Acquired absence of right leg below knee; F32.9 Major depressive disorder, single episode, unspecified; Z79.82 Long term (current) use of aspirin; E87.6 Hypokalemia; F19.10 Other psychoactive substance abuse, uncomplicated; G40.909 Epilepsy, unspecified, not intractable, without status epilepticus; Z91.15 Patient's noncompliance with renal dialysis; D69.6 Thrombocytopenia, unspecified; F41.9 Anxiety disorder, unspecified; F12.10 Cannabis abuse, uncomplicated; Z88.0 Allergy status to penicillin; E10.42 Type 1 diabetes mellitus with diabetic polyneuropathy; E10.22 Type 1 diabetes mellitus with diabetic chronic kidney disease; T68.XXXA Hypothermia, initial encounter; E10.649 Type 1 diabetes mellitus with hypoglycemia without coma; Z91.14 Patient's other noncompliance with medication regimen; E78.00 Pure hypercholesterolemia, unspecified; I95.9 Hypotension, unspecified
CPT/HCPCS: 36415; 36416; 71045; 80053; 80202; 82010; 82330; 82553; 82803; 83735; 83930; 84100; 84484; 85007; 85025; 85027; 86704; 86706; 86803; 87040; 87340; 87804; 90935; 93005; 93010; 94640; 94644; 96361; 96365; 96375; 96376; G0257; J0692; J1815; J2405; J3370; J3490; J7611; J7620

== ENCOUNTER 2020-01-05 01:52 | Inpatient (IN) | payer MEDICARE, MEDICAID ==
[2020-01-05] MEDS ORDERED: Dextrose 50% Abboject 50 ML SYRINGE ONE (02:08)
[2020-01-05] MEDS ORDERED: Calcium Chloride 1 GM/10 ML Abboject SYRINGE ONE ×2 (02:08→02:34)
[2020-01-05] MEDS ORDERED: Insulin Regular 300 UNITS/3 ML VIAL ONE (02:08)
[2020-01-05] MEDS ORDERED: Sodium Bicarb 50 MEQ/50 ML VIAL ONE (02:08)
[2020-01-05] MEDS ORDERED: Lidocaine 1% PF 5 ML VIAL ONE (02:16)
[2020-01-05] MEDS ORDERED: Albuterol Sulfate 2.5 mg/3 ml Neb ONE (02:16)
[2020-01-05 02:30] LABS: INR-International Normal Ratio 1.1; PTT 35.5 SEC (22.9-36.1); Prothrombin Time 14.1 SEC (12.0-14.7)
[2020-01-05 02:36] LABS: #Monocytes 0.4 thou/uL (0.11-0.59); #Neutrophils 4.2 thou/uL (1.40-6.50); %Basophils 0.3 % (0.0-1.0); %Eosinophils 0.2 % (0.0-10.0); %Lymphocytes 18.6 % (21.0-51.0); %Monocytes 6.8 % (0.0-10.0); %Neutrophils 74.2 % (42.0-75.0); Mean Corpuscular HGB CONC 30.2 g/dL (32.0-36.0); Mean Corpuscular Hemoglobin 29.2 pg (27.0-31.0); Mean Corpuscular Volume 96.7 fL (78.0-98.0); Platelet Count 66 thou/uL (130-400); RBC Distribution Width 16.3 % (11.5-14.5); Red Blood Cell (RBC) Count 3.43 mill/uL (4.70-6.10); White Blood Cell (WBC) Count 5.6 thou/uL (4.8-10.8)
[2020-01-05 02:42] LABS: Acetaminophen Less than 6.0 mcg/mL (10.0-30.0); Alcohol Less than 10 mg/dL (Less than 10); Magnesium 3.4 mg/dL (1.6-2.6); Salicylate Less than 8.0 mg/dL (15.0-30.0)
[2020-01-05 02:43] LABS: ALT (SGPT) 16 U/L (8-55); AST (SGOT) 17 U/L (5-34); Albumin 3.7 g/dL (3.5-5.0); Alkaline Phosphatase 157 U/L (40-110); Bilirubin, Total 0.4 mg/dL (0.2-1.2); Calc. Creatinine Clearance 0 mL/min (70-130); Calcium 8.5 mg/dL (7.8-10.44); Chloride 99 mmol/L (98-107); Estimated GFR-MDRD 5; Globulin 3.3 g/dL (2.4-3.5); Glucose 537 mg/dL (70-105); Large Platelets SLIGHT; Lipase 16 U/L (8-78); Platelet Morphology Comment Appears Decreased; Sodium 131 mmol/L (136-145)
[2020-01-05 02:51] LABS: Carbon Dioxide Less than 8 mmol/L (22-29); Potassium 8.7 mmol/L (3.5-5.1)
--- NOTE | 2020-01-05 03:07 | PDOC.FPRHP ---
- History of Present Illness Chief Complaint: Unresponsive History of Present Illness: Pt is a 39 yo male with PMH significant for DM I, MDD, HTN, ESRD on HD, Hx of CVA, polysubstance abuse who presents with an unresponsive episode, hypothermia , and hyperkalemia. He was found by his family members and brought to the ED by ambulance. Pt was responding to yes/no questions but unable to perform a full history. It was noted he has missed 2 to 3 days of dialysis and not taking his insulin. He presented in November with a similar episode but had concurrent DKA. ED Course: In the ED he was given 1 amp sodium bicarb, novolin 10 U, 1 amp D50, 1 L NaCl, and Ca 2 g for hyperkalemia, peaked 2 waves. - Allergies/Adverse Reactions Allergies Allergy/AdvReac Type Severity Reaction Status Date / Time Penicillins Allergy Unknown Verified 10/15/19 20:06 - Home Medications Medication Instructions Recorded Confirmed Type Sevelamer Carbonate [Renvela] 2,400 mg PO TID-WM 09/08/15 01/05/20 History Amlodipine Besylate [amLODIPine 10 mg PO DAILY 09/02/16 01/05/20 History Besylate] Cinacalcet HCl [Sensipar] 60 mg PO DAILY 09/02/16 01/05/20 History hydrALAZINE [Apresoline] 25 mg PO TID 09/02/16 01/05/20 History Sertraline HCl 25 mg PO DAILY 03/03/17 01/05/20 History Acetaminophen [Tylenol Regular 650 mg PO Q4H PRN tab 09/27/18 01/05/20 Rx Strength] HumaLOG [HumaLOG Vial] 3 units SC TID-WM vial 11/26/19 01/05/20 Rx Insulin Glargine [Lantus Vial] 12 units SC QAM vial 11/26/19 01/05/20 Rx levETIRAcetam [Keppra] 500 mg PO BID #0 tab 11/26/19 01/05/20 Rx - History PMHx: ESRD, DMI, MDD, HTN, Hx CVA x 2, polysubstance abuse, hx of DKA PSHx: BKA, AV fistula L arm FHx: non-contributory Social: hx of tobacco abuse, polysubstance abuse - Review of Systems ROS unobtainable: due to mental status - Vital signs BP: 105/61 HR: 57 RR: 20 Tmax: Pox: % on Wt: 81.6 kg - Physical Exam -Constitutional: GSC 15, uncomfortable appearing HEENT: normocephalic and atraumatic Neck: FROM, trachea midline Heart: RRR, normal S1/S2 -Heart: 2 + LE Pitting edema Lungs: CTAB, no wheezing Abdomen: soft, non-tender, bowel sounds present Musculoskeletal: normal tone, ROM grossly normal Neurological: no focal deficit, CN II-XII intact Skin: no rash/lesions, no jaundice Heme/Lymphatic: no purpura, no petechia -Psychiatric: unable to assess FMR H&P: Results - Labs Result Diagrams: 01/05/20 02:13 01/05/20 02:13 Lab results: WBC 5.6 thou/uL (4.8-10.8) 01/05/20 02:13 Hgb 10.0 g/dL (14.0-18.0) L 01/05/20 02:13 Hct 33.2 % (42.0-52.0) L 01/05/20 02:13 MCV 96.7 fL (78.0-98.0) 01/05/20 02:13 Plt Count 66 thou/uL (130-400) L 01/05/20 02:13 Neutrophils % 74.2 % (42.0-75.0) 01/05/20 02:13 Sodium 131 mmol/L (136-145) L 01/05/20 02:13 Potassium 8.7 mmol/L (3.5-5.1) H* 01/05/20 02:13 Chloride 99 mmol/L (98-107) 01/05/20 02:13 Carbon Dioxide Less than 8 mmol/L (22-29) L* 01/05/20 02:13 Creatinine 14.33 mg/dL (0.7-1.3) H 01/05/20 02:13 Glucose 537 mg/dL (70-105) H 01/05/20 02:13 Lactic Acid 1.7 mmol/L (0.5-2.2) 01/05/20 02:13 Calcium 8.5 mg/dL (7.8-10.44) 01/05/20 02:13 Total Bilirubin 0.4 mg/dL (0.2-1.2) 01/05/20 02:13 AST 17 U/L (5-34) 01/05/20 02:13 ALT 16 U/L (8-55) 01/05/20 02:13 Alkaline Phosphatase 157 U/L (40-110) H 01/05/20 02:13 B-Natriuretic Peptide 960.1 pg/mL (0-100) H 01/05/20 02:13 Serum Total Protein 7.0 g/dL (6.0-8.3) 01/05/20 02:13 Albumin 3.7 g/dL (3.5-5.0) 01/05/20 02:13 Lipase 16 U/L (8-78) 01/05/20 02:13 - EKG Interpretation EKG: NSR, peaked T waves - Radiology Interpretation Chest x-ray Status: image reviewed by me Additional comment: RLL effusion improved from previous visit FMR H&P: A/P - Problem List (1) Hyperkalemia Current Visit: No Status: Acute Priority: High Code(s): E87.5 - HYPERKALEMIA (2) Thrombocytopenia Current Visit: No Status: Acute Code(s): D69.6 - THROMBOCYTOPENIA, UNSPECIFIED (3) Anemia of renal disease Current Visit: No Status: Chronic Code(s): D63.1 - ANEMIA IN CHRONIC KIDNEY DISEASE (4) Depression Current Visit: No Status: Chronic Priority: Low Code(s): F32.9 - MAJOR DEPRESSIVE DISORDER, SINGLE EPISODE, UNSPECIFIED Qualifiers: Depression Type: major depressive disorder Active/Remission status: currently active Psychotic features: without psychotic features (5) Diabetes mellitus type 1 Current Visit: No Status: Chronic Code(s): E10.9 - TYPE 1 DIABETES MELLITUS WITHOUT COMPLICATIONS (6) Hypertension Current Visit: No Status: Chronic Code(s): I10 - ESSENTIAL (PRIMARY) HYPERTENSION Qualifiers: Hypertension type: essential hypertension Qualified Code(s): I10 - Essential (primary) hypertension (7) Seizure Current Visit: No Status: Chronic Code(s): R56.9 - UNSPECIFIED CONVULSIONS (8) Hyperkalemia Current Visit: No Status: Resolved Code(s): E87.5 - HYPERKALEMIA (9) Metabolic encephalopathy Current Visit: No Status: Resolved Code(s): G93.41 - METABOLIC ENCEPHALOPATHY - Plan Pt is a 29 yo with PMH significant for ESRD, DMI, MDD, HTN, Hx CVA x 2, polysubstance abuse who presents for: # Hyperkalemia Dialysis ; missed last 2 treatments - Dr. Gonzalez consulted in ED - emergency dialysis; appreciate rec's - given calcium, Novolin 10 U, D50, Sodium Bicarb in ED # DM I # Hx of DKA - continue home meds, likely non-compliant - beta hydroxybuterate pending; start DKA protocol if elevated # ESRD - dialysis as above - continue home meds # Thrombocytopenia - monitor # Elevated BNP likely fluid overload, will need to remove with dialysis - monitor fluid status # HTN - hold home meds, low normotensive # Depression - continue home meds # Hx of Seizure D/O - continue home meds # Hx of Polysubstance abuse - pending drug screen Diet: NPO Fluids: hold VTE: SCD's, thrombocytopenia Code: status as pt was altered Dispo: admit to CCU FMR H&P: Upper Level - Pertinent history 39 year old patient with PMH ESRD on HD presents via EMS after being found unresponsive at home. Patient unable to provide much history. He has reportedly missed several dialysis sessions. Patient noted to have hyperglycemia with BG in the 500's on admission. He has a history of type I DM and has been admitted many times in the past for DKA. Patient also noted to be hypothermic with temp of 90F in ED. - Pertinent findings General: Will awaken when asked some questions. Able to tell me name, year, and location before falling back asleep. HEENT: Dry MM. Card: RRR, no murmur Resp: CTA bilaterally, on NC, no acute distress Abdomen: Soft, non-tender, non-distended Ext: BKA right lower extremity, 2+ pitting edema left lower extremity - Plan Date/Time: 01/05/20 0307 I, Anabel Arcos, have evaluated this patient and agree with findings/plan as outlined by application internship resident. Pertinent changes/additions are listed here. Uremic encephalopathy - BUN 132, Cr 14.33 - Emergent dialysis - Dr. Gonzalez consulted (01/04) - Continue to monitor - HCO3 <8 - Anion gap >32 Severe hyperkalemia - K 8.9 with peaked twaves on EKG - Patient received calcium for mycardial stabilization and Novolin 10 units and 1 amp bicarb to bring down K - Dr. Gonzalez consulted from ED; patient to receive emergent dialysis - Will recheck K in 1 hour - q4h BMP - Continuous ECG monitoring in ICU DKA - Type I DM - BG 500's - Elevated beta hydroxybutyrate - Significant metabolic acidosis, but mixed picture given uremia - Anion gap >32 - DKA protocol initiated - Given hypothermia and DKA in absence of ROSC, suspect there may be underlying infection - Blood cultures and urine cultures pending - Will initiate broad spectrum antibiotics with Cefepime (01/04) and Vanc (01/04) Hypothermia - Temp noted to be as low as 90F - Bear hugger with warming protocol - Patient did not require resuscitation; while this could be from significant hypoperfusion from kidney failure, cannot rule out infection as etiology - Will start cefepime and vanc dosed based on HD - CXR with possible RLL infiltrate vs effusion Acute hypoxic respiratory failure - CXR with RLL infiltrate vs effusion - Given entirety of clinical picture, will treat with antibiotics as above - Requiring 2L NC - Continue to monitor - Blood cx pending - Procal pending Thrombocytopenia - Continue to monitor - Not currently in severe range - No active bleeding - Coags WNL ESRD on HD - See above - Missed several sessions DM type I - See above - On lantus 12 units and humalog 3 units w/ meals HTN - Continue amlodipine and hydralazine MDD - Continue sertraline when tolerating PO Hx CVA x2 - Continue ASA Polysubstance abuse history - UDS pending Anemia - Likely 2/2 ESRD, uncertain if on epogen Possible seizure disorder - Patient on Keppra BID DVT PPX: Will hold on pharmacologic management given platelet count at this time Code Status: Full code Dispo: Admit to CCU. Anticipate LOS >48 hours.
[2020-01-05 03:16] LABS: BUN (Urea Nitrogen) 132 mg/dL (8.9-20.6)
[2020-01-05] MEDS ORDERED: NS 0.9% w/ 20 MEQ KCL 1,000 ML IV PRN ×2 (04:38)
[2020-01-05] MEDS ORDERED: Sodium Chloride 0.9% 1,000 ML IV PRN ×4 (04:38)
[2020-01-05] MEDS ORDERED: Dextrose 5 %-0.45 % NaCl 1,000 ML IV PRN (04:38)
[2020-01-05] MEDS ORDERED: D5 1/2 NS w/20 mEq KCL 1,000 ML IV PRN (04:38)
[2020-01-05] MEDS ORDERED: CCU Electrolyte Replacement 1 EACH IVPB ONE (04:38)
[2020-01-05] MEDS ORDERED: Potassium Chloride 40 MEQ in Sodium Chloride 0.9% 250 ML 250 ML IVPB PRN (04:44)
[2020-01-05] MEDS ORDERED: Potassium Phosphate 15 MMOL in Sodium Chloride 0.9% 250 ML 250 ML IV PRN (04:44)
[2020-01-05] MEDS ORDERED: Magnesium Oxide 400 MG TAB PO PRN ×2 (04:44)
[2020-01-05] MEDS ORDERED: Potassium Chloride 40 MEQ in Premix Bag 1 BAG IVPB PRN (04:44)
[2020-01-05] MEDS ORDERED: Potassium Phosphate 12 MMOL in Sodium Chloride 0.9% 250 ML 250 ML IV PRN (04:44)
[2020-01-05] MEDS ORDERED: PHOS-NAK 1 PKT PACK PO PRN ×2 (04:44)
[2020-01-05] MEDS ORDERED: Magnesium 2 GM/50 ML 2 GM in Premix Bag 1 BAG IVPB PRN (04:44)
[2020-01-05] MEDS ORDERED: Potassium Chloride 20 MEQ TAB PO PRN (04:44)
[2020-01-05] MEDS ORDERED: CCU ELECTROLYTE REPLACEMENT PROTOCOL FS PRN (04:44)
[2020-01-05] MEDS ORDERED: Potassium Phosphate 9 MMOL in Sodium Chloride 0.9% 100 ML IVPB PRN (04:44)
[2020-01-05] MEDS ORDERED: HUMULIN R 100 UNITS in Sodium Chloride 0.9% 100 ML IVPB SCH (04:45)
[2020-01-05 04:48] VITALS: BMI 25.2
[2020-01-05] MEDS ORDERED: Acetaminophen 325 MG TAB PO PRN (04:50)
[2020-01-05] MEDS: Cefepime 1 GM in Sodium Chloride 0.9% 100 ML IVPB SCH (08:53)
[2020-01-05] MEDS: Famotidine/PF 20 mg/2ml Vial SLOW IVP SCH (08:55)
[2020-01-05] MEDS: Cinacalcet HCl 30 MG TAB PO SCH (08:55)
[2020-01-05] MEDS: Sevelamer Carbonate 800 MG TAB PO SCH ×3 (08:56→18:06)
[2020-01-05] MEDS: levETIRAcetam 500 MG TAB PO SCH ×2 (08:56→21:01)
[2020-01-05] MEDS ORDERED: Cefepime 2 GM in Sodium Chloride 0.9% 100 ML IVPB SCH (09:00)
[2020-01-05] MEDS ORDERED: Famotidine/PF 20 mg/2ml Vial SLOW IVP SCH (09:00)
[2020-01-05] MEDS: hydrALAZINE 25 MG TAB PO SCH ×3 (10:37→21:01)
[2020-01-05] MEDS: Amlodipine 10 MG TAB PO SCH (10:38)
[2020-01-05] MEDS ORDERED: Vancomycin HCl 1.75 GM in Sodium Chloride 0.9% 500 ML IVPB SCH (10:45)
[2020-01-05 11:11] LABS: Chloride 106 mmol/L (98-107); Potassium 5.7 mmol/L (3.5-5.1); Sodium 143 mmol/L (136-145)
[2020-01-05 11:12] LABS: Glucose 107 mg/dL (70-105)
[2020-01-05 11:14] LABS: Anion Gap 27 mmol/L (10-20); Carbon Dioxide 16 mmol/L (22-29)
[2020-01-05 11:16] LABS: Calc. Creatinine Clearance 13 mL/min (70-130); Estimated GFR-MDRD 8
[2020-01-05 11:17] LABS: BUN (Urea Nitrogen) 81 mg/dL (8.9-20.6)
--- NOTE | 2020-01-05 11:22 | RAD ---
Chest one view HISTORY: Altered mental status. Chest pain. COMPARISON: 11/24/2019. FINDINGS: Cardiac silhouette is magnified. Right cardiac margin partially obscured by right pleural f luid that is favored to be similar in volume to the previous exam. Pulmonary vasculature remains slightly engorged. Mediastinum is midline. No evidence of pneumothorax. Vascular stents overlie the left axillary and lopez bclavian vessels. IMPRESSION: Pulmonary vascular congestion and right pleural fluid favored to be stable compared to 11/24/2019 exam.
[2020-01-05] MEDS ORDERED: Insulin Regular 300 UNITS/3 ML VIAL SC PRN (13:13)
[2020-01-05] MEDS ORDERED: Dextrose 50% Abboject 50 ML SYRINGE IVP PRN (13:13)
[2020-01-05] MEDS ORDERED: Dextrose 5% in Water 1,000 ML IV PRN (13:13)
[2020-01-05 13:16] LABS: Actual Bicarbonate (HCO3a) 21.7 mEq/L (22-28); CO2 Tension 42.5 mmHg (35.0-45.0); Calcium, Ionized 1.06 mmol/L (1.12-1.30); Carboxyhemoglobin (COHb) 1.7 gm% (0.0-3.0); Hemoglobin (Hb) 9.4 g/dL (14.0-18.0); Potassium - ABG Lab 5.42 mmol/L (3.70-5.30); pH, Arterial 7.33 (7.35-7.45)
[2020-01-05 13:18] LABS: O2 Tension (PaO2) 54.2 mmHg (80.0-100.0)
[2020-01-05 13:19] LABS: Puncture Site RBA
--- NOTE | 2020-01-05 15:15 | CON ---
DATE OF CONSULTATION: REASON FOR CONSULTATION: Hyperkalemia, potassium of 8.7. HISTORY OF PRESENT ILLNESS: A 39-year-old noncompliant gentleman, presented to the hospital early this morning for hyperkalemia and poor appetite. The patient can give no further history. He was very, very somnolent at that time. PAST MEDICAL HISTORY: Significant for hypertension, anemia, diabetes mellitus, right BKA, AV fistula, tunneled dialysis catheter, noncompliance, history of depression, and history of polysubstance abuse. REVIEW OF SYSTEMS: Unobtainable. ALLERGIES: REVIEWED. HOME MEDICATIONS: List reviewed. HOSPITAL MEDICATIONS: List reviewed. PHYSICAL EXAMINATION: GENERAL: The patient is resting. VITAL SIGNS: Afebrile, pulse 80, breathing 16, and blood pressure 105/61. HEENT: Head normocephalic and atraumatic. Eyes intact, no ulcers. Nose intact, no ulcers. Ears intact, no ulcers. Neck: Supple. No JVD. Chest: Symmetrical and clear. Cardiovascular: Shows S1 and S2, no rub, no murmur. Gastrointestinal: Abdomen is soft, bowel sounds positive. Extremities: Show no edema or ulcers. Skin: Shows no rash or petechiae. Musculoskeletal: Shows no joint swelling or stiffness. Genitourinary: Shows no Cl[place] or CVA tenderness. Neurologic: The patient is somnolent. LABORATORY DATA: Reviewed. ASSESSMENT AND PLAN: 1. Stage 6 chronic kidney disease, plan urgent dialysis. 2. Hyperkalemia, plan dialysis. 3. Uremia, plan dialysis. 4. Overall prognosis is extremely poor. 5. Compliance and Pc Installation Engineer have been consulted on multiple occasions and the patient was offered choice of other providers as well. Job ID: [id number]
[2020-01-05] MEDS ORDERED: Vancomycin HCl 1.25 GM in Sodium Chloride 0.9% 250 ML 250 ML IVPB SCH (17:45)
[2020-01-05] MEDS ORDERED: Vancomycin HCl 500 MG in Sodium Chloride 0.9% 100 ML IVPB SCH (17:45)
[2020-01-05] MEDS ORDERED: HOLD VANCOMYCIN FOR LEVEL >20 FS SCH (17:45)
[2020-01-05] MEDS ORDERED: Vancomycin 1 GM in Premix Bag 1 BAG IVPB SCH (17:45)
[2020-01-05] MEDS ORDERED: Vancomycin HCl 750 MG in Sodium Chloride 0.9% 250 ML 250 ML IVPB SCH (17:45)
[2020-01-05] MEDS ORDERED: Vancomycin Sliding Scale 1 EACH FS ONE (17:45)
[2020-01-05 21:48] LABS: Anion Gap 29 mmol/L (10-20); BUN (Urea Nitrogen) 60 mg/dL (8.9-20.6); Calc. Creatinine Clearance 16 mL/min (70-130); Calcium 8.2 mg/dL (7.8-10.44); Carbon Dioxide 13 mmol/L (22-29); Chloride 105 mmol/L (98-107); Estimated GFR-MDRD 10; Glucose 164 mg/dL (70-105); Sodium 140 mmol/L (136-145)
[2020-01-05 21:50] LABS: Potassium 6.6 mmol/L (3.5-5.1)
[2020-01-05 22:30] LABS: Actual Bicarbonate (HCO3a) 18.9 mEq/L (22-28); Base Excess (BEa) -7.5 mEq/L (-2.0 to +3.0); Calcium, Ionized 1.07 mmol/L (1.12-1.30); Hemoglobin (Hb) 9.7 g/dL (14.0-18.0); O2 Tension (PaO2) 85.7 mmHg (80.0-100.0); Potassium - ABG Lab 4.95 mmol/L (3.70-5.30); pH, Arterial 7.27 (7.35-7.45)
[2020-01-05 22:35] LABS: Puncture Site LR
[2020-01-06] MEDS: Insulin Regular 300 UNITS/3 ML VIAL SC PRN ×3 (06:31→16:27)
[2020-01-06] MEDS: Cefepime 1 GM in Sodium Chloride 0.9% 100 ML IVPB SCH (08:00)
[2020-01-06] MEDS: Sevelamer Carbonate 800 MG TAB PO SCH ×3 (08:00→16:52)
[2020-01-06 09:05] LABS: Vancomycin, Random 7.2 ug/mL (See Comment)
--- NOTE | 2020-01-06 09:15 | CON ---
DATE OF CONSULTATION: 01/05/2020 HISTORY OF PRESENT ILLNESS: Mr. Brush is a 39-year-old gentleman, well known in this hospital. I have seen him multiple times in the past. Apparently, he skipped dialysis, presented requiring emergent dialysis in the middle of the night, apparently brought in unresponsive. He is awake now. PAST MEDICAL HISTORY: 1. Remarkable for end-stage renal disease. 2. Diabetes. 3. Substance abuse. 4. Hypertension. 5. Several strokes. 6. Lower extremity amputation below the knee. 7. Multiple vascular access procedures. FAMILY HISTORY: Negative for lung disease at an early age. He has a cousin that works in the radiology department here. The patient has a long history of drug abuse. so we did not see him for a while. Drug screen done last night, did have evidence of diabetic ketoacidosis with a beta hydroxybutyrate level of 5, stopped because of . REVIEW OF SYSTEMS: Not accurately obtainable. PHYSICAL EXAMINATION: VITAL SIGNS: Silvestre is afebrile. Heart rate is in 80s, blood pressure 120/71, respiratory rate in the teens. HEAD AND NECK: Unremarkable. He has multiple scars in his right subclavian area from past vascular access procedures. LUNGS: Clear. HEART: Regular rhythm. ABDOMEN: Soft. EXTREMITIES: His amputation stump is well healed. LABORATORY DATA: PH 7.33, CO2 of 42, PO2 of 54 with potassium 5.4 on arterial blood gas. He is scheduled for dialysis again this afternoon. Potassium is 5.7 on the chem 7 this morning. BUN 81, creatinine 8.7, white count 5.6, hemoglobin 10, platelets 66. IMPRESSION: Long history of noncompliance, end-stage renal disease, diabetes, drug abuse and another episode of dialysis noncompliance. He was dialyzed emergently last night. He will be dialyzed again this afternoon. He appears to be medically stable at this time. TIME SPENT: This is a 70-minute consult, 50% of the time spent on the unit coordinating care. Job ID: [id number] MTDD
[2020-01-06] MEDS: Cinacalcet HCl 30 MG TAB PO SCH (09:26)
[2020-01-06] MEDS: Amlodipine 10 MG TAB PO SCH (09:26)
[2020-01-06] MEDS: hydrALAZINE 25 MG TAB PO SCH ×3 (09:27→21:04)
[2020-01-06] MEDS: Insulin Glargine 12 UNITS in Pre-Filled Syringe 1 EACH SC SCH (09:27)
[2020-01-06] MEDS: Famotidine/PF 20 mg/2ml Vial SLOW IVP SCH (09:27)
[2020-01-06] MEDS: levETIRAcetam 500 MG TAB PO SCH ×2 (09:27→21:04)
[2020-01-06 09:56] LABS: Vancomycin, Random 13.4 ug/mL (See Comment)
--- NOTE | 2020-01-06 10:48 | PDOC.FM ---
- Subjective Subjective: Getting dialysis with no complaints, no pain no fever/chills, no cp, no sob - Objective Vital Signs & Weight: Vital Signs (12 hours) Temp Pulse BP Pulse Ox 01/06/20 09:27 90 120/84 01/06/20 09:26 90 120/84 01/06/20 08:00 98.0 F 98 01/06/20 04:00 98.5 F 01/06/20 00:00 98.4 F Weight Weight 82.01 kg Most Recent Monitor Data Heart Rate from ECG 89 NIBP 109/47 NIBP BP-Mean 67 Respiration from ECG 16 SpO2 98 I&O: 01/05/20 01/06/20 01/07/20 06:59 06:59 06:59 Intake Total 980 Balance 980 Result Diagrams: 01/05/20 02:13 01/06/20 09:33 Phys Exam - Physical Examination Constitutional: NAD HEENT: moist MMs, sclera anicteric Neck: no JVD, supple Respiratory: no wheezing, clear to auscultation bilateral Cardiovascular: RRR, no significant murmur Gastrointestinal: soft, non-tender Musculoskeletal: no edema, pulses present Neurological: normal sensation, moves all 4 limbs Psychiatric: normal affect, A&O x 3 Skin: no rash, normal turgor Dx/Plan (1) Hyperkalemia Code(s): E87.5 - HYPERKALEMIA Status: Acute (2) Hypothermia Code(s): T68.XXXA - HYPOTHERMIA, INITIAL ENCOUNTER Status: Acute (3) Increased anion gap metabolic acidosis Code(s): E87.2 - ACIDOSIS Status: Acute (4) Normocytic anemia, not due to blood loss Code(s): D64.9 - ANEMIA, UNSPECIFIED Status: Acute (5) Anxiety and depression Code(s): F41.9 - ANXIETY DISORDER, UNSPECIFIED; F32.9 - MAJOR DEPRESSIVE DISORDER, SINGLE EPISODE, UNSPECIFIED Status: Chronic (6) Diabetes mellitus type 1 with complications Code(s): E10.8 - TYPE 1 DIABETES MELLITUS WITH UNSPECIFIED COMPLICATIONS Status: Chronic (7) Drug abuse, phencyclidine Code(s): F16.10 - HALLUCINOGEN ABUSE, UNCOMPLICATED Status: Chronic (8) ESRD (end stage renal disease) on dialysis Code(s): N18.6 - END STAGE RENAL DISEASE; Z99.2 - DEPENDENCE ON RENAL DIALYSIS Status: Chronic (9) HLD (hyperlipidemia) Code(s): E78.5 - HYPERLIPIDEMIA, UNSPECIFIED Status: Chronic - Plan Plan: Pt is a 39 yo with PMH significant for ESRD, DMI, MDD, HTN, Hx CVA x 2, polysubstance abuse who presents for: Anion lori acidosis 2/2 uremic acidosis A- Improving with dialysis. Pt no longer encephalopathic, remains uremic. BUN 132->60 P- plan to recheck labs with dialysis DKA A- resolved, gap is still open however this is likely 2/2 uremia. BG has been in 100-200s. betahydroxybutyrate declining. P- home insulin regimen Hyperkalemia A- resolved, WNL on ABG last night. pt currently getting dialysis P- continue dialysis per nephro Hypothermia A- temps are now wnl with corrected glucose and dialysis. Given hypothermia we have not ruled out the possibility of underlying infection P- continue cefepime and vanc dosed based on HD -f/u BCx and UCx Acute hypoxic respiratory failure A- resolved, likely 2/2 volume overload. Resolved with dialysis P- continue normal dialysis regimen per nephro Thrombocytopenia -likely 2/2 ESRD ESRD on HD -See above, Missed several sessions DM type I -see above HTN - Continue amlodipine and hydralazine MDD - Continue sertraline when tolerating PO Hx CVA x2 - Continue ASA Polysubstance abuse history - MD aware Anemia - Likely 2/2 ESRD, uncertain if on epogen Possible seizure disorder - Patient on Keppra BID DVT PPX: Will hold on pharmacologic management given platelet count at this time Code Status: Full code Addendum - Attending - Attending Attestation Date/Time: 01/06/20 [id number] I personally evaluated the patient and discussed the management with Dr. Lazar. I agree with the History, Examination, Assessment and Plan documented above with any addition or exceptions noted below.
[2020-01-06 11:23] LABS: ALT (SGPT) 18 U/L (8-55); AST (SGOT) 15 U/L (5-34); Alkaline Phosphatase 155 U/L (40-110); Anion Gap 19 mmol/L (10-20); BUN (Urea Nitrogen) 30 mg/dL (8.9-20.6); Bilirubin, Total 0.5 mg/dL (0.2-1.2); Calc. Creatinine Clearance 25 mL/min (70-130); Calcium 8.5 mg/dL (7.8-10.44); Carbon Dioxide 24 mmol/L (22-29); Chloride 103 mmol/L (98-107); Estimated GFR-MDRD 17; Globulin 3.4 g/dL (2.4-3.5); Glucose 179 mg/dL (70-105); Potassium 3.1 mmol/L (3.5-5.1); Protein, Total 7.4 g/dL (6.0-8.3); Sodium 143 mmol/L (136-145)
[2020-01-06] MEDS ORDERED: Insulin Glargine 6 UNITS in Pre-Filled Syringe 1 EACH SC SCH (15:45)
[2020-01-06 17:02] LABS: Anion Gap 21 mmol/L (10-20); BUN (Urea Nitrogen) 34 mg/dL (8.9-20.6); Calc. Creatinine Clearance 20 mL/min (70-130); Calcium 7.8 mg/dL (7.8-10.44); Carbon Dioxide 21 mmol/L (22-29); Chloride 100 mmol/L (98-107); Estimated GFR-MDRD 14; Glucose 250 mg/dL (70-105); Potassium 4.6 mmol/L (3.5-5.1); Sodium 137 mmol/L (136-145)
--- NOTE | 2020-01-06 18:24 | PRG ---
DATE OF SERVICE: 01/06/2020 SUBJECTIVE: Patient was seen and examined at bedside and overnight events noted. Patient denies any shortness of breath or chest pain or palpitation. No history of nausea or vomiting or diarrhea or fever or chills or cramps. OBJECTIVE: GENERAL: This is a well-built male, in no apparent distress. VITAL SIGNS: Temperature 97.7, pulse 85, respiratory rate 15, and blood pressure 136/71. HEENT: Atraumatic, normocephalic. Oral mucosa is moist NECK: Supple. CARDIOVASCULAR: S1, S2 heard. Rate and rhythm regular. RESPIRATORY: Clear to auscultation. GASTROINTESTINAL: Abdomen is soft. MUSCULOSKELETAL: No tenderness. No edema. DERMATOLOGIC: No skin rash. NEUROLOGIC: Alert and awake and oriented X3. No focal neurologic deficits. Moving all the extremities. PSYCHIATRIC: Mood and affect normal. LABORATORY DATA: Hemoglobin is 10.0, potassium 6.6, BUN 34, and creatinine 5.6. ASSESSMENT AND PLAN: 1. End-stage renal disease. Plan is to have dialysis today and then continue on Monday, Monday, and Monday. 2. Hyperkalemia, limit potassium intake and we will recheck labs closely. 3. Edema. 4. Hypertension. 5. Uremia. 6. Noncompliance. Continue dialysis as tolerated. Job ID: [id number]
[2020-01-07 04:19] LABS: Anion Gap 24 mmol/L (10-20); BUN (Urea Nitrogen) 48 mg/dL (8.9-20.6); Calc. Creatinine Clearance 17 mL/min (70-130); Calcium 8.1 mg/dL (7.8-10.44); Carbon Dioxide 17 mmol/L (22-29); Chloride 104 mmol/L (98-107); Estimated GFR-MDRD 11; Glucose 179 mg/dL (70-105); Potassium 5.6 mmol/L (3.5-5.1); Sodium 139 mmol/L (136-145)
[2020-01-07] MEDS: Insulin Regular 300 UNITS/3 ML VIAL SC PRN ×2 (06:30→09:38)
[2020-01-07 08:30] LABS: Vancomycin, Random 28.4 ug/mL (See Comment)
[2020-01-07] MEDS: Sevelamer Carbonate 800 MG TAB PO SCH ×3 (08:35→17:57)
--- NOTE | 2020-01-07 08:36 | PDOC.FM ---
- Subjective Subjective: Doing well with no complaints, states he has intentions to never miss another dialysis appointment. Discussed the alternative to dialysis is hospice. No SOB no cough, no cp no palpitations - Objective Vital Signs & Weight: Vital Signs (12 hours) Temp Pulse BP 01/07/20 06:00 98 F 01/07/20 04:00 98.8 F 01/07/20 00:00 98.9 F 01/06/20 21:04 85 143/78 H Weight Weight 82.01 kg Most Recent Monitor Data Heart Rate from ECG 78 NIBP 130/68 NIBP BP-Mean 88 Respiration from ECG 13 SpO2 96 I&O: 01/06/20 01/07/20 01/08/20 06:59 06:59 06:59 Intake Total 980 1169 Balance 980 1169 Result Diagrams: 01/05/20 02:13 01/07/20 03:33 Phys Exam - Physical Examination Constitutional: NAD HEENT: moist MMs, sclera anicteric Neck: no JVD, supple Respiratory: no wheezing, clear to auscultation bilateral Cardiovascular: RRR, no significant murmur Gastrointestinal: soft, non-tender Musculoskeletal: no edema, pulses present Neurological: normal sensation, moves all 4 limbs Psychiatric: normal affect, A&O x 3 Skin: normal turgor, cap refill <2 seconds Dx/Plan (1) Hyperkalemia Code(s): E87.5 - HYPERKALEMIA Status: Acute (2) Hypothermia Code(s): T68.XXXA - HYPOTHERMIA, INITIAL ENCOUNTER Status: Acute (3) Increased anion gap metabolic acidosis Code(s): E87.2 - ACIDOSIS Status: Acute (4) Normocytic anemia, not due to blood loss Code(s): D64.9 - ANEMIA, UNSPECIFIED Status: Acute (5) Anxiety and depression Code(s): F41.9 - ANXIETY DISORDER, UNSPECIFIED; F32.9 - MAJOR DEPRESSIVE DISORDER, SINGLE EPISODE, UNSPECIFIED Status: Chronic (6) Diabetes mellitus type 1 with complications Code(s): E10.8 - TYPE 1 DIABETES MELLITUS WITH UNSPECIFIED COMPLICATIONS Status: Chronic (7) Drug abuse, phencyclidine Code(s): F16.10 - HALLUCINOGEN ABUSE, UNCOMPLICATED Status: Chronic (8) ESRD (end stage renal disease) on dialysis Code(s): N18.6 - END STAGE RENAL DISEASE; Z99.2 - DEPENDENCE ON RENAL DIALYSIS Status: Chronic (9) HLD (hyperlipidemia) Code(s): E78.5 - HYPERLIPIDEMIA, UNSPECIFIED Status: Chronic - Plan Plan: Pt is a 39 yo with PMH significant for ESRD, DMI, MDD, HTN, Hx CVA x 2, polysubstance abuse who presents for: Anion lori acidosis 2/2 uremic acidosis A- Pt no longer encephalopathic, remains uremic. BUN 132->60->48 P- possible dialysis again today vs. DC home and resuming MWF regimen -f/u nephro recs DKA A- resolved, gap is still open however this is likely 2/2 uremia. BG has been in 100-200s. betahydroxybutyrate declining. P- home insulin regimen Hyperkalemia A- stable. slight elevation on labs drawn yesterday 5.6. P- possible dialysis today per nephro Hypothermia A- temps are now wnl with corrected glucose and dialysis. Given hypothermia we have not ruled out the possibility of underlying infection P- continue cefepime and vanc dosed based on HD -f/u BCx and UCx Acute hypoxic respiratory failure A- resolved, likely 2/2 volume overload. Resolved with dialysis P- continue normal dialysis regimen per nephro Thrombocytopenia -likely 2/2 ESRD ESRD on HD -See above, Missed several sessions DM type I -see above HTN - Continue amlodipine and hydralazine MDD - Continue sertraline Hx CVA x2 - Continue ASA Polysubstance abuse history - MD aware Anemia - Likely 2/2 ESRD, uncertain if on epogen Possible seizure disorder - Patient on Keppra BID DVT PPX: Will hold on pharmacologic management given platelet count at this time Code Status: Full code Addendum - Attending - Attending Attestation Date/Time: 01/07/20 1120 I personally evaluated the patient and discussed the management with Dr. Lazar. I agree with the History, Examination, Assessment and Plan documented above with any addition or exceptions noted below.
[2020-01-07] MEDS: levETIRAcetam 500 MG TAB PO SCH (09:12)
[2020-01-07] MEDS: hydrALAZINE 25 MG TAB PO SCH ×2 (09:13→14:40)
[2020-01-07] MEDS: Amlodipine 10 MG TAB PO SCH (09:13)
[2020-01-07] MEDS: Famotidine/PF 20 mg/2ml Vial SLOW IVP SCH (09:26)
[2020-01-07] MEDS: Insulin Glargine 12 UNITS in Pre-Filled Syringe 1 EACH SC SCH (09:27)
[2020-01-07] MEDS: Cinacalcet HCl 30 MG TAB PO SCH (09:38)
--- NOTE | 2020-01-07 13:22 | PRG ---
DATE OF SERVICE: 01/07/2020 SUBJECTIVE: Patient was seen and examined at bedside and overnight events noted. Patient denies any shortness of breath or chest pain or palpitation. No history of nausea or vomiting or diarrhea or fever or chills or cramps. OBJECTIVE: General: This is a well-built male, in no apparent distress. Vital Signs: Temperature 97.8. Heart Rate 77. Respiratory rate 18. Blood pressure 135/73. HEENT: Atraumatic, normocephalic. Oral mucosa is moist. Neck: Supple. Cardiovascular: S1, S2 heard. Rate and rhythm regular. Respiratory: Clear to auscultation. Gastrointestinal: Abdomen is soft. Musculoskeletal: No tenderness. No edema. Dermatologic: No skin rash. Neurologic: Alert and awake and oriented x3. No focal neurologic deficits. Moving all the extremities. Psychiatric: Mood and affect normal. LABORATORY DATA: Potassium 5.6, BUN is 48, creatinine 6.7. ASSESSMENT AND PLAN: 1. End-stage renal disease. We will continue on dialysis. Plan is to have extra dialysis for 2 hours today. 2. Hyperkalemia. We will have dialysis. Limit potassium. 3. Edema. 4. Hypertension. 5. Uremia. Continue dialysis Monday, Monday, Monday as tolerated. We will have an extra session of dialysis for hyperkalemia today. Job ID: [id number]
[2020-01-07] MEDS ORDERED: Cefepime 1 GM in Sodium Chloride 0.9% 100 ML IVPB SCH (17:00)
[2020-01-07 17:03] VITALS: BP 96/54; TEMP 97.4
[2020-01-08] MEDS ORDERED: Famotidine 20 MG TAB PO SCH (09:00)
--- NOTE | 2020-01-08 17:03 | DIS ---
DATE OF ADMISSION: 01/05/2020 DATE OF DISCHARGE: 01/07/2020 ADMITTING ATTENDING: Dr. Antelmo Sandoval. DISCHARGE ATTENDING: Dr. Rashard Yoon. RESIDENT: Tj Lazar MD I personally saw the patient for a total of 3 days. CONSULTS: 1. Pulmonology, Dr. Segundo Moreno. 2. Nephrology, Dr. Mike Gonzalez. PROCEDURES: Chest x-ray on 01/05/2020; impression, pulmonary vascular congestion, right pleural fluid favored to be stable compared to previous exam. DISCHARGE MEDICATIONS: 1. Renvela 2400 mg p.o. t.i.d. with meals. 2. Sensipar 60 mg p.o. daily. 3. Hydralazine 25 mg p.o. t.i.d. 4. Amlodipine 10 mg p.o. daily. 5. Sertraline 25 mg p.o. daily. 6. Acetaminophen. 7. Humalog 3 units subcutaneous t.i.d. with meals. 8. Insulin glargine 12 units subcutaneous q.a.m. 9. Keppra 500 mg p.o. b.i.d. DISCONTINUED MEDICATIONS: None. PRIMARY DIAGNOSIS: Acute hypoxic respiratory failure secondary to fluid overload. SECONDARY DIAGNOSES: Severe hyperkalemia, diabetic ketoacidosis, uremic encephalopathy, hypothermia, thrombocytopenia, end-stage renal disease on hemodialysis, type 1 diabetes, hypertension, major depressive disorder, history of cerebrovascular accident, polysubstance abuse disorder, anemia, and seizure disorder. HISTORY OF PRESENT ILLNESS AND HOSPITAL COURSE: This is a 39-year-old male with past medical history of end-stage renal disease, noncompliance with diabetes, and hemodialysis with frequent admissions for DKA and volume overload and hyperkalemia secondary to his noncompliance. The patient presented to the hospital after being found down at his house and was found to be hypothermic, DKA and hypoxic respiratory failure secondary to volume overload. The patient required nasal cannula on presentation, was admitted and brought back for emergent dialysis. Regarding the hyperkalemia, DKA, and volume overload, these were corrected with dialysis quickly. Regarding the uremic encephalopathy, this was also corrected over the span of days with serial dialysis regarding the patient's hypothermia. Blood cultures and urine cultures were taken, and the patient was started on cefepime and vancomycin. As his DKA, hyperkalemia, anion gap acidosis, uremic acidosis, hypoxic respiratory failure, all were corrected with dialysis. His blood cultures resulted negative and antibiotics were stopped. Discussion was had with the patient about his compliance and the possibility of hospice care. The patient states this has been a defining moment in his life that he plans to be compliant with dialysis and insulin regimen as well as not taking PCP anymore. The patient was discharged in good condition with plans to continue normal hemodialysis regimen Monday, Monday, and Monday. DISPOSITION: Stable. DISCHARGE INSTRUCTIONS: 1. Location: Home. 2. Activity: As tolerated. 3. Diet: Renal and diabetic diet. 4. Followup: Follow up with Dr. Efraín Mckinley in [address] Rafa Hurd in 2 to 3 weeks. Job ID: [id number]
== END 2020-01-07 20:04 | disposition home or self-care (01) | DRG 637 ==
LOC: ERS 01:52 → CCU 02:57 → 2NO 01-07 11:31
PROVIDERS: ADMIT Family Medicine; ATTEND Family Medicine
PROC: 5A1D70Z Performance of Urinary Filtration, Intermittent, Less than 6 Hours Per Day (ICD-10-PCS; principal; 2020-01-06)
DX: E10.10 Type 1 diabetes mellitus with ketoacidosis without coma (principal); J96.01 Acute respiratory failure with hypoxia; N18.6 End stage renal disease; G93.49 Other encephalopathy; I13.2 Hypertensive heart and chronic kidney disease with heart failure and with stage 5 chronic kidney disease, or end stage renal disease; E87.5 Hyperkalemia; E87.70 Fluid overload, unspecified; R68.0 Hypothermia, not associated with low environmental temperature; D69.6 Thrombocytopenia, unspecified; E10.22 Type 1 diabetes mellitus with diabetic chronic kidney disease; F32.9 Major depressive disorder, single episode, unspecified; F19.10 Other psychoactive substance abuse, uncomplicated; G40.909 Epilepsy, unspecified, not intractable, without status epilepticus; E78.5 Hyperlipidemia, unspecified; I50.9 Heart failure, unspecified; F17.210 Nicotine dependence, cigarettes, uncomplicated; Z91.15 Patient's noncompliance with renal dialysis; F41.9 Anxiety disorder, unspecified; D63.1 Anemia in chronic kidney disease; Z79.4 Long term (current) use of insulin; Z86.73 Personal history of transient ischemic attack (TIA), and cerebral infarction without residual deficits; Z91.14 Patient's other noncompliance with medication regimen; Z89.511 Acquired absence of right leg below knee
CPT/HCPCS: 36415; 36416; 71045; 80048; 80053; 80202; 80307; 82010; 82805; 83605; 83690; 83735; 83880; 84443; 85025; 85610; 85730; 87040; 90935; 93005; 94760; 96361; 96374; 96375; 99292; G0257; J0692; J1815; J2001; J3370; J3490; J7050; J7611; S0028

== ENCOUNTER 2020-01-30 10:31 | Inpatient (IN) | payer MEDICARE, MEDICAID ==
[2020-01-30 11:26] LABS: #Basophils 0.1 thou/uL (0.0-0.2); #Monocytes 0.7 thou/uL (0.11-0.59); #Neutrophils 8.5 thou/uL (1.40-6.50); %Basophils 0.8 % (0.0-1.0); %Eosinophils 0.4 % (0.0-10.0); %Lymphocytes 9.5 % (21.0-51.0); %Neutrophils 82.3 % (42.0-75.0); Hemoglobin 9.9 g/dL (14.0-18.0); Mean Corpuscular HGB CONC 32.4 g/dL (32.0-36.0); Mean Corpuscular Hemoglobin 29.3 pg (27.0-31.0); Mean Corpuscular Volume 90.2 fL (78.0-98.0); Mean Platelet Volume 13.3 fL (7.4-10.4); Platelet Count 113 thou/uL (130-400); RBC Distribution Width 16.8 % (11.5-14.5); Red Blood Cell (RBC) Count 3.37 mill/uL (4.70-6.10); White Blood Cell (WBC) Count 10.3 thou/uL (4.8-10.8)
[2020-01-30 11:43] LABS: ALT (SGPT) 22 U/L (8-55); AST (SGOT) 15 U/L (5-34); Albumin 3.9 g/dL (3.5-5.0); Alkaline Phosphatase 141 U/L (40-110); Anion Gap 29 mmol/L (10-20); Bilirubin, Total 0.5 mg/dL (0.2-1.2); CK (CPK) 131 U/L (30-200); Calc. Creatinine Clearance 0 mL/min (70-130); Calcium 8.8 mg/dL (7.8-10.44); Carbon Dioxide 16 mmol/L (22-29); Chloride 101 mmol/L (98-107); Estimated GFR-MDRD 5; Globulin 3.9 g/dL (2.4-3.5); Glucose 82 mg/dL (70-105); Lipase 12 U/L (8-78); Magnesium 3.1 mg/dL (1.6-2.6); Protein, Total 7.8 g/dL (6.0-8.3); Sodium 137 mmol/L (136-145)
[2020-01-30 11:54] LABS: BUN (Urea Nitrogen) 137 mg/dL (8.9-20.6)
[2020-01-30 11:59] LABS: Potassium 8.5 mmol/L (3.5-5.1)
--- NOTE | 2020-01-30 12:02 | RAD ---
PORTABLE CHEST: Date: 01/30/2020 HISTORY: Shortness of breath. COMPARISON: 01/05/2020. FINDINGS: Right-sided effusion and right basilar infiltrate and atelectasis again noted. The infiltrate in the right upper lung noted previously has improved. However, now there is new confluent infiltrate throughout the left lung when compared to prior study. IMPRESSION: 1. New confluent and hazy infiltrate throughout the left lung. 2. Right-sided effusion and right basilar infiltrate and atelectasis again noted. Right upper lung o pacity seen previously has slightly improved. POS: AGW
[2020-01-30] MEDS ORDERED: Insulin Regular 300 UNITS/3 ML VIAL ONE ×2 (12:13→12:17)
[2020-01-30] MEDS ORDERED: Sodium Bicarbonate 2.5 MEQ/5 ML VIAL ONE (12:13)
[2020-01-30] MEDS ORDERED: Dextrose 50% Abboject 50 ML SYRINGE ONE (12:13)
[2020-01-30] MEDS ORDERED: Sodium Bicarb 50 MEQ/50 ML VIAL ONE (12:17)
--- NOTE | 2020-01-30 12:36 | CON ---
DATE OF CONSULTATION: REASON FOR CONSULTATION: Hyperkalemia. HISTORY OF PRESENT ILLNESS: This is a very pleasant 39-year-old noncompliant patient, who presented to the hospital after missing dialysis with a potassium of 8.5. The patient has a history of noncompliance and does not seek any compliance advice that was given to him. PAST MEDICAL HISTORY: Significant for hypertension, anemia, diabetes mellitus, BKA, AV fistula, tunneled dialysis catheter, depression, history of polysubstance abuse. ALLERGIES: REVIEWED. HOME MEDICATIONS: Reviewed. HOSPITAL MEDICATIONS: Reviewed. REVIEW OF SYSTEMS: Unobtainable. PHYSICAL EXAMINATION: GENERAL: The patient is awake and alert. VITAL SIGNS: Afebrile, pulse 75, breathing at 16, blood pressure 135/70. HEENT: Head normocephalic and atraumatic. Eyes intact, no ulcers. Nose intact, no ulcers. Ears intact, no ulcers. NECK: Supple. No JVD. CHEST: Symmetrical and clear. CARDIOVASCULAR: Shows S1 and S2, no rub, no murmur. GASTROINTESTINAL: Abdomen is soft, bowel sounds positive. EXTREMITIES: Show no edema or ulcers. SKIN: Shows no rash or petechiae. MUSCULOSKELETAL: Shows no joint swelling or stiffness. GENITOURINARY: Shows no [place] or CVA tenderness. NEUROLOGIC: Motor intact. Cranial nerves intact. LABORATORY DATA: Reviewed. ASSESSMENT AND PLAN: 1. Stage 6 chronic kidney disease. Plan dialysis. 2. Uremia. Plan dialysis. 3. Hyperkalemia. Plan stat dialysis. The nurse on-call was called. Job ID: [id number]
--- NOTE | 2020-01-30 12:40 | PDOC.FPRHP ---
- History of Present Illness Chief Complaint: SOB History of Present Illness: Patient is a 39M with PMHx significant for uncontrolled DM I, MDD, HTN, ESRD on HD, Hx of CVA x 2, polysubstance abuse who presents SOB. Patient reports that he started to feel SOB last night, worse when lying down. Patient has missed his last 2 dialysis sessions. Denies fever, cough, chest pain. Reports his abdomen, legs, and face feel "tight." He states that he has been taking his medications as prescribed, though he did not take them this morning. He also reports chronic diarrhea of at least 1 year that he has taken imodium for. He states he takes it with each meal, but he hasn't been taking it this week, so his diarrhea got worse, and he didn't feel like going to dialysis. He reports some days he feels like his "life isn't worth living" and he skips dialysis on purpose, and some days he's more optimistic so he goes. Financial Reporting Manager: Dr. Gonzalez, who was consulted from the ED and plans to start the patient on emergent dialysis He presented in December with a similar episode but was unresponsive at that time. ED Course: 6u novolin, 2 amp D50, 1amp bicarb - Allergies/Adverse Reactions Allergies Allergy/AdvReac Type Severity Reaction Status Date / Time Penicillins Allergy Unknown Verified 10/15/19 20:06 - Home Medications Medication Instructions Recorded Confirmed Type Sevelamer Carbonate [Renvela] 2,400 mg PO TID-WM 09/08/15 01/05/20 History Amlodipine Besylate [amLODIPine 10 mg PO DAILY 09/02/16 01/05/20 History Besylate] Cinacalcet HCl [Sensipar] 60 mg PO DAILY 09/02/16 01/05/20 History hydrALAZINE [Apresoline] 25 mg PO TID 09/02/16 01/05/20 History Sertraline HCl 25 mg PO DAILY 03/03/17 01/05/20 History Acetaminophen [Tylenol Regular 650 mg PO Q4H PRN tab 09/27/18 01/05/20 Rx Strength] HumaLOG [HumaLOG Vial] 3 units SC TID-WM vial 11/26/19 01/05/20 Rx Insulin Glargine [Lantus Vial] 12 units SC QAM vial 11/26/19 01/05/20 Rx levETIRAcetam [Keppra] 500 mg PO BID #0 tab 11/26/19 01/05/20 Rx - History PMHx: uncontrolled DM I, MDD, HTN, ESRD on HD, Hx of CVA x 2, polysubstance abuse PSHx: R BKA, R arm dialysis fistula, dialysis shunt R chest, L arm dialysis fistula FHx: non-contributory Social: smokes 1/2ppd, uses marijuana every 2-3 days, reports last used pcp 2-3 months ago, no etoh use - Review of Systems General: reports: fever/chills (Reports chills that happen all the time d/t diabetes. Denied fever.). denies: night sweats Eyes: denies: eye pain, vision changes ENT: reports: rhinorrhea (Reports chronic rhinorrhea, maybe a little increased from baseline.) Respiratory: reports: shortness of breath Cardiovascular: reports: edema, orthopnea. denies: chest pain, palpitation Gastrointestinal: reports: diarrhea, abdominal pain, GI bleeding (occasional in the past.). denies: nausea, vomiting, constipation Genitourinary: reports: other (anuric d/t CKD6). denies: incontinence, dysuria , polyuria Skin: denies: rashes, lesions Musculoskeletal: reports: other (leg cramps). denies: pain Neurological: denies: numbness, syncope, weakness, other Psychological: reports: depression - Vital signs BP: 184/135 HR: 81 RR: 22 Tmax: 97.8F Pox: 96% on 1.5L Wt: [] - Physical Exam Constitutional: awake, alert and oriented, well developed HEENT: normocephalic and atraumatic, MMM, other (edema of his face including his eyelids) Neck: supple, FROM Chest: no-tender to palpation, no lesions Heart: RRR, normal S1/S2 Lungs: other (expiratory wheezing bilateral lung bases, no crackles) Abdomen: soft, other (slightly ttp throughout) Musculoskeletal: ROM grossly normal, other (right BKA) Neurological: no focal deficit Skin: other (edema throughout legs up to knees, arms, abdomen, face; abrasion L foot, dark area on L foot 5th digit) Heme/Lymphatic: no unusual bruising or bleeding, no purpura Psychiatric: normal mood and affect, other (poor judgment and insight) FMR H&P: Results - Labs Result Diagrams: 01/30/20 10:55 01/30/20 10:55 Lab results: WBC 10.3 thou/uL (4.8-10.8) 01/30/20 10:55 Hgb 9.9 g/dL (14.0-18.0) L 01/30/20 10:55 Hct 30.4 % (42.0-52.0) L 01/30/20 10:55 MCV 90.2 fL (78.0-98.0) 01/30/20 10:55 Plt Count 113 thou/uL (130-400) L 01/30/20 10:55 Neutrophils % 82.3 % (42.0-75.0) H 01/30/20 10:55 Sodium 137 mmol/L (136-145) 01/30/20 10:55 Potassium 8.5 mmol/L (3.5-5.1) H* 01/30/20 10:55 Chloride 101 mmol/L (98-107) 01/30/20 10:55 Carbon Dioxide 16 mmol/L (22-29) L 01/30/20 10:55 BUN 137 mg/dL (8.9-20.6) H 01/30/20 10:55 Creatinine 14.50 mg/dL (0.7-1.3) H 01/30/20 10:55 Glucose 82 mg/dL (70-105) 01/30/20 10:55 Lactic Acid 0.5 mmol/L (0.5-2.2) 01/30/20 11:46 Calcium 8.8 mg/dL (7.8-10.44) 01/30/20 10:55 Total Bilirubin 0.5 mg/dL (0.2-1.2) 01/30/20 10:55 AST 15 U/L (5-34) 01/30/20 10:55 ALT 22 U/L (8-55) 01/30/20 10:55 Alkaline Phosphatase 141 U/L (40-110) H 01/30/20 10:55 Creatine Kinase 131 U/L (30-200) 01/30/20 10:55 Serum Total Protein 7.8 g/dL (6.0-8.3) 01/30/20 10:55 Albumin 3.9 g/dL (3.5-5.0) 01/30/20 10:55 Lipase 12 U/L (8-78) 01/30/20 10:55 - EKG Interpretation EKG: NSR, peaked T waves - Radiology Interpretation Chest x-ray Status: report reviewed by me (new confluent and hazy infiltrate left lung, R- sided effusion and R basilar infiltrate and atelectass (stable from prior), improved RUL opacity) FMR H&P: A/P - Problem List (1) Diabetes mellitus type 1 Current Visit: No Status: Chronic Code(s): E10.9 - TYPE 1 DIABETES MELLITUS WITHOUT COMPLICATIONS (2) Diastolic CHF Current Visit: No Status: Chronic Code(s): I50.30 - UNSPECIFIED DIASTOLIC ( CONGESTIVE) HEART FAILURE Qualifiers: (3) ESRD (end stage renal disease) on dialysis Current Visit: No Status: Chronic Code(s): N18.6 - END STAGE RENAL DISEASE; Z99.2 - DEPENDENCE ON RENAL DIALYSIS (4) HLD (hyperlipidemia) Current Visit: No Status: Chronic Code(s): E78.5 - HYPERLIPIDEMIA, UNSPECIFIED (5) Hypertension Current Visit: No Status: Chronic Code(s): I10 - ESSENTIAL (PRIMARY) HYPERTENSION Qualifiers: Hypertension type: essential hypertension Qualified Code(s): I10 - Essential (primary) hypertension (6) Non-compliance with renal dialysis Current Visit: No Status: Chronic Code(s): Z91.15 - PATIENT'S NONCOMPLIANCE WITH RENAL DIALYSIS (7) Polysubstance abuse Current Visit: No Status: Chronic Priority: Low Code(s): F19.10 - OTHER PSYCHOACTIVE SUBSTANCE ABUSE, UNCOMPLICATED (8) Tobacco abuse Current Visit: No Status: Chronic Code(s): Z72.0 - TOBACCO USE (9) Hyperkalemia Current Visit: No Status: Resolved Code(s): E87.5 - HYPERKALEMIA (10) Acute respiratory failure with hypoxia Current Visit: Yes Status: Acute Code(s): J96.01 - ACUTE RESPIRATORY FAILURE WITH HYPOXIA - Plan Pt is a 29M PMH significant for ESRD on HD, DMI (poorly controlled), MDD, HTN, HLD, Hx CVA x 2, polysubstance abuse who presents for: #Acute hypoxic respiratory failure -patient requiring O2 in ED, does not usually use oxygen at home -CXR shows effusion, fluid overload -patient to go up for emergent dialysis -will monitor respiratory status s/p dialysis # Hyperkalemia - Missed last 2 Dialysis treatments - potassium 8.4 - Dr. Gonzalez and Dr. Hurd consulted in ED - emergency dialysis; appreciate rec' s - given 6u novolin with 2 amps D50 and 1 amp bicarb in ED - Will continue to monitor # DM I # Hx of DKA - continue home meds, history of non-compliance - glucose 82 in ED # ESRD - Missed last 2 dialysis sessions - emergent dialysis today - continue home meds #CHpEF -emergent dialysis to remove fluid -SL for fluids -continue home meds -repeat CXR in am post/dialysis # Thrombocytopenia - platelet count improved from last visit - monitor # HTN - continue home meds # Depression - continue home meds # Hx of Seizure D/O - continue home meds # Hx of Polysubstance abuse - pending drug screen #MDD -restart home meds #Chronic anemia -at baseline -likely from ESRD, will continue to monitor #Chronic diarrhea -stool studies pending, negative during last admission Diet: CC Fluids: SL VTE: heparin Code: Full Dispo: admit to inpatient telemetry after emergent dialysis PCP: Nasir FMR H&P: Upper Level - Plan Date/Time: 01/30/20 1239 IIbis DO, have evaluated this patient and agree with findings/plan as outlined by advisory intern resident. Pertinent changes/additions are listed here. Pt is a 39 yo M with PMH of ESRD, uncontrolled T1DM, Polysubstance abuse disorder, and noncompliance presenting for SOB, onset last night. He reports missing 2 days of dialysis 2/2 diarrhea he reports is chronic x1-2 years. Normally takes daily Imodium but did not take Imodium over the last two days. Occasionally reports hematochezia on toilet paper when wiping, not currently. Did not take meds this am and did not eat. VS: 129/46, P81, R25, O296 on 1.5L, T97.8F PE: Gen: well developed, NAD HEENT: Moist MM, no LAD Heart: RRR, no murmurs or extra sounds. Distal pulses 2+ Lungs: Expiratory wheezing at bases, no crackles. No increased work of breathing. NC in place. Speaking in full sentences without difficulty Abd: soft, nontender, BS+ Ext: significant edema of LLE and UE as well as face and back. R BKA. Skin: L foot with pink abrasion on dorsal surface. Also tip of 5th digit with small <0.5cm dark area. Psych: AOx3, normal mood Pertinent Labs/Imaging: Hgb 9.9 K 8.5 BUN 137, Cr 14.5 Mg 3.1 CXR: L midlung hazy infiltrate. R sided effusion and R basilar infiltrate and atelectasis comparable to prior CXR on 01/04 R upper lung opacity improved from prior EKG: Peaked T waves. No ST changes. A/P: Acute Hypoxic Respiratory failure 2/2 Volume overload, Hyperkalemia, Anion Gap Metabolic Acidosis 2/2 Uremia, ESRD, and Noncompliance with Dialysis: -Dr. Gonzalez consulted in the ED and plans for stat dialysis. -CXR with findings of volume overload but concern for possible infiltrate. Repeat CXR tomorrow. -procal pending -repeat BMP tomorrow -s/p 6u novolin with 2 amps D50 and 1 amp bicarb in ED -encourage compliance with dialysis Chronic Diarrhea: -c-diff, stool cx pending, negative on last admission -imodium prn after stool is collected. MDD -appears depressed, restart home meds, will need outpt f/u Chronic Anemia: -At baseline. Likely 2/2 CKD and possibly some GI losses with reported occasional hematochezia. -No overt hematochezia at this time or symptomatic anemia. Needs GI workup outpatient. -CBC tomorrow T1DM: -BS wnl on admission. Continue home insulin and SSI Chronic Thrombocytopenia: -at baseline DVT PPx: Heparin GI PPx: none Dispo: stable, LOS likely >48h.
[2020-01-30] MEDS ORDERED: Dextrose 5% in Water 1,000 ML IV PRN (13:45)
[2020-01-30] MEDS ORDERED: HumaLOG 300 UNITS/3 ML VIAL SC PRN ×2 (13:45)
[2020-01-30] MEDS ORDERED: Dextrose 50% Abboject 50 ML SYRINGE SLOW IVP PRN (13:45)
[2020-01-30] MEDS ORDERED: Acetaminophen 325 MG TAB PO PRN (17:59)
[2020-01-30] MEDS: levETIRAcetam 500 MG TAB PO SCH (20:28)
[2020-01-30] MEDS: Heparin 5,000 UNITS/ML VIAL SC SCH (20:28)
[2020-01-30] MEDS: hydrALAZINE 25 MG TAB PO SCH (20:28)
--- NOTE | 2020-01-31 05:26 | PDOC.FM ---
- Subjective Subjective: Patient doing well this morning, reports he feels much better after HD yesterday. Reports his breathing is greatly improved and he feels better now that his swelling has decreased. - Objective Vital Signs & Weight: Vital Signs (12 hours) Temp Pulse Resp BP BP Pulse Ox 01/31/20 03:15 98.2 F 92 16 140/62 98 01/31/20 01:00 98.2 F 85 16 125/59 L 94 L 01/30/20 23:20 98.2 F 85 16 125/59 L 94 L 01/30/20 20:28 85 143/67 H 01/30/20 20:08 96.0 F L 85 20 143/67 H 98 01/30/20 18:41 98 Weight Weight 82.645 kg Result Diagrams: 01/31/20 04:32 01/31/20 04:32 EKG Reviewed by me: Yes (sinus 70s-80s) Phys Exam - Physical Examination Constitutional: NAD HEENT: moist MMs, sclera anicteric edematous eyelids bilaterally, improved from admission Neck: supple, full ROM Respiratory: no wheezing decreased breath sounds RLL Cardiovascular: RRR, no significant murmur Gastrointestinal: soft, non-tender 1+ pitting edema LLE, right BKA Neurological: non-focal, moves all 4 limbs Psychiatric: normal affect, A&O x 3 Deviation from normal: lesion on top of left foot, bandaging c/d/i Dx/Plan (1) Diabetes mellitus type 1 Code(s): E10.9 - TYPE 1 DIABETES MELLITUS WITHOUT COMPLICATIONS Status: Chronic (2) Diastolic CHF Code(s): I50.30 - UNSPECIFIED DIASTOLIC (CONGESTIVE) HEART FAILURE Status: Chronic Qualifiers: (3) ESRD (end stage renal disease) on dialysis Code(s): N18.6 - END STAGE RENAL DISEASE; Z99.2 - DEPENDENCE ON RENAL DIALYSIS Status: Chronic (4) HLD (hyperlipidemia) Code(s): E78.5 - HYPERLIPIDEMIA, UNSPECIFIED Status: Chronic (5) Hypertension Code(s): I10 - ESSENTIAL (PRIMARY) HYPERTENSION Status: Chronic Qualifiers: Hypertension type: essential hypertension Qualified Code(s): I10 - Essential (primary) hypertension (6) Non-compliance with renal dialysis Code(s): Z91.15 - PATIENT'S NONCOMPLIANCE WITH RENAL DIALYSIS Status: Chronic (7) Polysubstance abuse Code(s): F19.10 - OTHER PSYCHOACTIVE SUBSTANCE ABUSE, UNCOMPLICATED Status: Chronic (8) Tobacco abuse Code(s): Z72.0 - TOBACCO USE Status: Chronic (9) Hyperkalemia Code(s): E87.5 - HYPERKALEMIA Status: Resolved (10) Acute respiratory failure with hypoxia Code(s): J96.01 - ACUTE RESPIRATORY FAILURE WITH HYPOXIA Status: Acute - Plan Plan: Pt is a 29M PMH significant for ESRD on HD, DMI (poorly controlled), MDD, HTN, HLD, Hx CVA x 2, polysubstance abuse who presents for: #Acute hypoxic respiratory failure -patient requiring O2 in ED, does not usually use oxygen at home -CXR shows effusion, fluid overload -patient had emergent dialysis 01/29, 1.6L fluid off -will continue to monitor respiratory status s/p dialysis # Hyperkalemia - Missed last 2 Dialysis treatments - potassium 8.4>6.2 - Dr. Gonzalez and Dr. Hurd consulted in ED - emergency dialysis 01/29; appreciate rec's - given 6u novolin with 2 amps D50 and 1 amp bicarb in ED - Will continue to monitor with continued HD # DM I # Hx of DKA - continue home meds, history of non-compliance - glucose 82 in ED # ESRD - Missed last 2 dialysis sessions - emergent dialysis 01/29 - continue MWF dialysis - Dr. Gonzalez consulted, appreciate recs - continue home meds #HFpEF -emergent dialysis to remove fluid -SL for fluids -continue home meds -repeat CXR today s/p dialysis: read as stable # Thrombocytopenia - platelet count improved from last visit - monitor # HTN - continue home meds # Depression - continue home meds # Hx of Seizure D/O - continue home meds # Hx of Polysubstance abuse - pending drug screen #MDD -restart home meds #Chronic anemia -at baseline -likely from ESRD, will continue to monitor #Chronic diarrhea -c diff antigen positive, toxin negative -campylobacter negative -imodium Diet: CC Fluids: SL VTE: heparin Code: Full Dispo: admitted to inpatient telemetry for cardiac monitoring, monitoring potassium; continue MWF dialysis; Dr. Gonzalez consulted, appreciate recs PCP: Nasir
[2020-01-31 05:52] LABS: Mean Corpuscular Volume 90.7 fL (78.0-98.0); RBC Distribution Width 17.1 % (11.5-14.5)
[2020-01-31 05:57] LABS: Anion Gap 28 mmol/L (10-20); BUN (Urea Nitrogen) 76 mg/dL (8.9-20.6); Calc. Creatinine Clearance 13 mL/min (70-130); Calcium 8.8 mg/dL (7.8-10.44); Carbon Dioxide 18 mmol/L (22-29); Chloride 100 mmol/L (98-107); Estimated GFR-MDRD 8; Glucose 180 mg/dL (70-105); Potassium 6.2 mmol/L (3.5-5.1); Sodium 140 mmol/L (136-145)
[2020-01-31 06:36] LABS: #Lymphocytes 0.7 thou/uL (1.20-3.40); #Monocytes 0.7 thou/uL (0.11-0.59); #Neutrophils 6.3 thou/uL (1.40-6.50); %Basophils 0.1 % (0.0-1.0); %Eosinophils 0.4 % (0.0-10.0); %Lymphocytes 9.5 % (21.0-51.0); %Monocytes 8.5 % (0.0-10.0); %Neutrophils 81.6 % (42.0-75.0); Anisocytosis SLIGHT = 6-15 cells (100X) (0-5/hpf); Large Platelets SLIGHT; MDiff Complete? YES; Mean Platelet Volume 13.1 fL (7.4-10.4); Platelet Count 99 thou/uL (130-400); Platelet Morphology Comment Appears Decreased; White Blood Cell (WBC) Count 7.7 thou/uL (4.8-10.8)
--- NOTE | 2020-01-31 07:31 | RAD ---
SINGLE VIEW CHEST: Date: 01/31/2020 COMPARISON: 01/30/2020. HISTORY: Fluid overload. Post dialysis chest x-ray. FINDINGS: Single view of the chest shows normal sized cardiomediastinal silhouette. There is a moderate right p leural effusion with adjacent atelectasis. Multifocal infiltrates are again seen in the lungs. IMPRESSION: Stable exam. POS: [facility]
[2020-01-31] MEDS: Sevelamer Carbonate 800 MG TAB PO SCH ×3 (08:25→15:50)
[2020-01-31] MEDS: hydrALAZINE 25 MG TAB PO SCH ×3 (08:26→20:57)
[2020-01-31] MEDS: Insulin Glargine 12 UNITS in Pre-Filled Syringe 1 EACH SC SCH (08:28)
[2020-01-31] MEDS: HumaLOG 300 UNITS/3 ML VIAL SC SCH ×3 (08:28→15:52)
[2020-01-31] MEDS: Heparin 5,000 UNITS/ML VIAL SC SCH ×3 (08:28→20:57)
[2020-01-31] MEDS ORDERED: Loperamide HCl 1 MG/7.5 ML UDCUP PO PRN (09:28)
--- NOTE | 2020-01-31 11:06 | PRG ---
DATE OF SERVICE: 01/31/2020 SUBJECTIVE: This is a 39-year-old gentleman being seen for end-stage renal disease. The patient denied nausea, vomiting, or chest pain. OBJECTIVE: GENERAL: The patient is awake and alert. VITAL SIGNS: Afebrile, pulse 75, breathing at 16, blood pressure 167/72. HEENT: Head normocephalic and atraumatic. Eyes intact, no ulcers. Nose intact, no ulcers. Ears intact, no ulcers. NECK: Supple. No JVD. CHEST: Symmetrical and clear. CARDIOVASCULAR: Shows S1 and S2, no rub, no murmur. GASTROINTESTINAL: Abdomen is soft, bowel sounds positive. EXTREMITIES: Show no edema or ulcers. SKIN: Shows no rash or petechiae. MUSCULOSKELETAL: Shows no joint swelling or stiffness. GENITOURINARY: Shows no Clifton or CVA tenderness. NEUROLOGIC: Motor intact. Cranial nerves intact. LABORATORY DATA: Reviewed. ASSESSMENT AND PLAN: 1. Stage 6 chronic kidney disease. Plan dialysis. 2. Hypertension, stable. 3. Anemia, stable. 4. Medications based on glomerular filtration rate are appropriate. 5. Hyperkalemia. Plan dialysis. Job ID: [id number]
[2020-01-31 12:33] VITALS: BMI 25.6
--- NOTE | 2020-01-31 13:07 | EKG ---
Test Reason : Blood Pressure : / mmHG Vent. Rate : 079 BPM Atrial Rate : 079 BPM P-R Int : 234 ms QRS Dur : 164 ms QT Int : 428 ms P-R-T Axes : 031 -65 077 degrees QTc Int : 490 ms Sinus rhythm with 1st degree A-V block Left axis deviation Left bundle branch block Abnormal ECG Confirmed by LANEY DONATO DO ([id number]), book editor VINI DE LA CRUZ ([id number]) on 01/31/2020 1:06:35 PM Referred By: Confirmed By:LANEY DONATO DO
[2020-01-31] MEDS ORDERED: Heparin 10,000 UNITS/ 10 ML VIAL ONE (13:19)
[2020-01-31] MEDS: Cinacalcet HCl 30 MG TAB PO SCH (15:50)
[2020-01-31] MEDS: Amlodipine 10 MG TAB PO SCH (15:51)
[2020-01-31] MEDS: levETIRAcetam 500 MG TAB PO SCH ×2 (15:52→20:57)
[2020-01-31] MEDS: Loperamide HCl 1 MG/7.5 ML UDCUP PO PRN (21:36)
[2020-02-01 04:48] LABS: Anion Gap 20 mmol/L (10-20); BUN (Urea Nitrogen) 40 mg/dL (8.9-20.6); Calc. Creatinine Clearance 20 mL/min (70-130); Calcium 8.3 mg/dL (7.8-10.44); Carbon Dioxide 22 mmol/L (22-29); Chloride 103 mmol/L (98-107); Estimated GFR-MDRD 13; Glucose 61 mg/dL (70-105); Potassium 4.7 mmol/L (3.5-5.1); Sodium 140 mmol/L (136-145)
--- NOTE | 2020-02-01 05:33 | PDOC.FM ---
- Subjective Subjective: Patient doing well this morning, reports his breathing is greatly improved and he is not requiring oxygen. Discussed plans of possible discharge today, strongly encouraged patient to continue his MWF HD. Patient agreeable with plan of care. - Objective Vital Signs & Weight: Vital Signs (12 hours) Temp Pulse Resp BP BP Pulse Ox 02/01/20 03:36 97.2 F L 86 18 124/72 96 01/31/20 20:57 88 120/68 01/31/20 20:54 93 L 01/31/20 20:00 98.5 F 88 20 120/68 93 L Weight Admit Weight 82.645 kg Weight 83.416 kg I&O: 01/30/20 01/31/20 02/01/20 06:59 06:59 06:59 Intake Total 300 100 Output Total 0 5800 Balance 300 -5700 Result Diagrams: 01/31/20 04:32 02/01/20 04:04 Phys Exam - Physical Examination Constitutional: NAD HEENT: moist MMs, sclera anicteric eyelid/facial edema greatly improved Neck: supple, full ROM Respiratory: no wheezing, no rales Cardiovascular: RRR, no significant murmur Gastrointestinal: soft, non-tender Musculoskeletal: pulses present trace lower extremity edema Neurological: non-focal, moves all 4 limbs Psychiatric: normal affect, A&O x 3 Skin: normal turgor Deviation from normal: abrasion foot bandaging c/d/i Dx/Plan (1) Diabetes mellitus type 1 Code(s): E10.9 - TYPE 1 DIABETES MELLITUS WITHOUT COMPLICATIONS Status: Chronic (2) Diastolic CHF Code(s): I50.30 - UNSPECIFIED DIASTOLIC (CONGESTIVE) HEART FAILURE Status: Chronic Qualifiers: (3) ESRD (end stage renal disease) on dialysis Code(s): N18.6 - END STAGE RENAL DISEASE; Z99.2 - DEPENDENCE ON RENAL DIALYSIS Status: Chronic (4) HLD (hyperlipidemia) Code(s): E78.5 - HYPERLIPIDEMIA, UNSPECIFIED Status: Chronic (5) Hypertension Code(s): I10 - ESSENTIAL (PRIMARY) HYPERTENSION Status: Chronic Qualifiers: Hypertension type: essential hypertension Qualified Code(s): I10 - Essential (primary) hypertension (6) Non-compliance with renal dialysis Code(s): Z91.15 - PATIENT'S NONCOMPLIANCE WITH RENAL DIALYSIS Status: Chronic (7) Polysubstance abuse Code(s): F19.10 - OTHER PSYCHOACTIVE SUBSTANCE ABUSE, UNCOMPLICATED Status: Chronic (8) Tobacco abuse Code(s): Z72.0 - TOBACCO USE Status: Chronic (9) Hyperkalemia Code(s): E87.5 - HYPERKALEMIA Status: Resolved (10) Acute respiratory failure with hypoxia Code(s): J96.01 - ACUTE RESPIRATORY FAILURE WITH HYPOXIA Status: Acute - Plan Plan: Pt is a 29M PMH significant for ESRD on HD, DMI (poorly controlled), MDD, HTN, HLD, Hx CVA x 2, polysubstance abuse who presents for: #Acute hypoxic respiratory failure, resolved -patient requiring O2 in ED, does not usually use oxygen at home -CXR on admission shows effusion, fluid overload -patient had emergent dialysis 01/29, 1.6L fluid off -HD on 01/30, 5.8L taken off -patient no longer requiring oxygen # Hyperkalemia, resolved - Missed last 2 Dialysis treatments - potassium 8.4>6.2>4.7 - Dr. Gonzalez and Dr. Hurd consulted in ED - emergency dialysis 01/29; appreciate rec's - given 6u novolin with 2 amps D50 and 1 amp bicarb in ED - HD on 01/30, 5.8L taken off # DM I # Hx of DKA - continue home meds, history of non-compliance - glucose 82 in ED # ESRD - Missed last 2 dialysis sessions - emergent dialysis 01/29, HD on 01/30 - continue MWF dialysis - Dr. Gonzalez consulted, appreciate recs - continue home meds #HFpEF -emergent dialysis to remove fluid -SL for fluids -continue home meds # Thrombocytopenia - platelet count improved from last visit - monitor # HTN - continue home meds # Depression - continue home meds # Hx of Seizure D/O - continue home meds # Hx of Polysubstance abuse - pending drug screen #MDD -restarted home meds #Chronic anemia -at baseline -likely from ESRD, will continue to monitor #Chronic diarrhea -c diff antigen positive, toxin negative -campylobacter negative -imodium Diet: CC Fluids: SL VTE: heparin Code: Full Dispo: admitted to inpatient telemetry for cardiac monitoring, monitoring potassium which is now stable; patient will likely be d/c today with recommendations to continue MWF dialysis; Dr. Gonzalez consulted, appreciate recs PCP: Nasir
--- NOTE | 2020-02-01 08:27 | RAD ---
SINGLE VIEW CHEST: HISTORY: Fluid overload status post hemodialysis. COMPARISON: 01/31/20 FINDINGS: A single view of the chest shows the cardiomediastinal silhouette which is at the upper limits of nor mal in size. There is a moderate right pleural effusion with adjacent atelectasis. No significant patel nge has occurred compared to the prior examination. Vascular stents are seen in both subclavian regio ns. IMPRESSION: Stable examination. POS: [facility]
[2020-02-01] MEDS: Insulin Glargine 12 UNITS in Pre-Filled Syringe 1 EACH SC SCH (08:59)
[2020-02-01] MEDS: HumaLOG 300 UNITS/3 ML VIAL SC SCH ×3 (08:59→16:55)
[2020-02-01] MEDS: Amlodipine 10 MG TAB PO SCH (09:00)
[2020-02-01] MEDS: Cinacalcet HCl 30 MG TAB PO SCH (09:00)
[2020-02-01] MEDS: Sevelamer Carbonate 800 MG TAB PO SCH ×3 (09:00→16:56)
[2020-02-01] MEDS: levETIRAcetam 500 MG TAB PO SCH ×2 (09:00→20:51)
[2020-02-01] MEDS: hydrALAZINE 25 MG TAB PO SCH ×3 (09:01→20:51)
[2020-02-01] MEDS: Heparin 5,000 UNITS/ML VIAL SC SCH ×3 (09:18→20:50)
--- NOTE | 2020-02-01 15:37 | PRG ---
DATE OF SERVICE: 02/01/2020 SUBJECTIVE: A 39-year-old gentleman, being seen for end-stage renal disease. The patient denied nausea, vomiting, or chest pain. OBJECTIVE: GENERAL: The patient is awake and alert. VITAL SIGNS: Afebrile. Pulse 85, breathing 16, blood pressure 134/70. HEENT: Head normocephalic and atraumatic. Eyes intact, no ulcers. Nose intact, no ulcers. Ears intact, no ulcers. NECK: Supple. No JVD. CHEST: Symmetrical and clear. CARDIOVASCULAR: Shows S1 and S2, no rub, no murmur. GASTROINTESTINAL: Abdomen is soft, bowel sounds positive. EXTREMITIES: Show no edema or ulcers. SKIN: Shows no rash or petechiae. MUSCULOSKELETAL: Shows no joint swelling or stiffness. GENITOURINARY: Shows no Clifton or CVA tenderness. NEUROLOGIC: Motor intact. Cranial nerves intact. LABORATORY DATA: Reviewed. ASSESSMENT AND PLAN: 1. Stage 6 chronic kidney disease. Plan dialysis per schedule. 2. Hypertension, stable. 3. Anemia, stable. 4. Medication based on glomerular filtration rate are appropriate. Job ID: [id number]
--- NOTE | 2020-02-01 22:54 | PDOC.BPN ---
- Brief Progress Note paged at 1800 for low glucose, patient had not had anything to eat for lunch or supper fed patient, checked again 1 hour later, 110 Prepping for d/c and temp noted to be 95.3 on 2 checks Otherwise asymptomatic applied bear hugger will keep patient overnight
[2020-02-02 04:40] LABS: Anion Gap 22 mmol/L (10-20); BUN (Urea Nitrogen) 50 mg/dL (8.9-20.6); Calc. Creatinine Clearance 14 mL/min (70-130); Calcium 7.9 mg/dL (7.8-10.44); Carbon Dioxide 23 mmol/L (22-29); Chloride 102 mmol/L (98-107); Estimated GFR-MDRD 10; Glucose 260 mg/dL (70-105); Potassium 5.5 mmol/L (3.5-5.1); Sodium 141 mmol/L (136-145)
[2020-02-02 04:52] LABS: Hemoglobin 8.6 g/dL (14.0-18.0); Mean Corpuscular HGB CONC 32.5 g/dL (32.0-36.0); Mean Corpuscular Hemoglobin 29.6 pg (27.0-31.0); Mean Corpuscular Volume 91.1 fL (78.0-98.0); Mean Platelet Volume 12.2 fL (7.4-10.4); Platelet Count 87 thou/uL (130-400); RBC Distribution Width 16.8 % (11.5-14.5); Red Blood Cell (RBC) Count 2.89 mill/uL (4.70-6.10); White Blood Cell (WBC) Count 5.5 thou/uL (4.8-10.8)
--- NOTE | 2020-02-02 05:12 | PDOC.FM ---
- Subjective Subjective: Patient kept overnight due to rectal temp of 95.3F, which has since come up after bear-hugger placement and then removal. He also had a low BG last night due to the patient not eating lunch or supper. Patient reports he doesn't like the hospital food but states he will try to eat breakfast this morning. He otherwise reports he is feeling well, swelling improved - Objective Vital Signs & Weight: Vital Signs (12 hours) Temp Pulse Resp BP BP Pulse Ox 02/02/20 04:00 99.7 F H 82 18 120/57 L 97 02/02/20 00:00 98.2 F 88 20 137/65 96 02/01/20 22:00 97.7 F 02/01/20 20:51 79 124/58 L 02/01/20 20:17 95.3 F L 79 20 124/58 L 95 Weight Admit Weight 82.645 kg Weight 75.16 kg I&O: 01/31/20 02/01/20 02/02/20 06:59 06:59 06:59 Intake Total 217 445 1541 Output Total 0 5800 0 Balance 300 -5400 2040 Result Diagrams: 02/02/20 04:00 02/02/20 04:00 EKG Reviewed by me: Yes (sinus 80s-90s) Phys Exam - Physical Examination Constitutional: NAD HEENT: moist MMs, sclera anicteric Neck: supple, full ROM Respiratory: no wheezing, no rales Cardiovascular: RRR, no significant murmur Gastrointestinal: soft, non-tender trace lower extremity edema Neurological: non-focal, moves all 4 limbs Psychiatric: normal affect, A&O x 3 Skin: normal turgor Deviation from normal: lac on foot bandaging c/d/i Dx/Plan (1) Diabetes mellitus type 1 Code(s): E10.9 - TYPE 1 DIABETES MELLITUS WITHOUT COMPLICATIONS Status: Chronic (2) Diastolic CHF Code(s): I50.30 - UNSPECIFIED DIASTOLIC (CONGESTIVE) HEART FAILURE Status: Chronic Qualifiers: (3) ESRD (end stage renal disease) on dialysis Code(s): N18.6 - END STAGE RENAL DISEASE; Z99.2 - DEPENDENCE ON RENAL DIALYSIS Status: Chronic (4) HLD (hyperlipidemia) Code(s): E78.5 - HYPERLIPIDEMIA, UNSPECIFIED Status: Chronic (5) Hypertension Code(s): I10 - ESSENTIAL (PRIMARY) HYPERTENSION Status: Chronic Qualifiers: Hypertension type: essential hypertension Qualified Code(s): I10 - Essential (primary) hypertension (6) Non-compliance with renal dialysis Code(s): Z91.15 - PATIENT'S NONCOMPLIANCE WITH RENAL DIALYSIS Status: Chronic (7) Polysubstance abuse Code(s): F19.10 - OTHER PSYCHOACTIVE SUBSTANCE ABUSE, UNCOMPLICATED Status: Chronic (8) Tobacco abuse Code(s): Z72.0 - TOBACCO USE Status: Chronic (9) Hyperkalemia Code(s): E87.5 - HYPERKALEMIA Status: Resolved (10) Acute respiratory failure with hypoxia Code(s): J96.01 - ACUTE RESPIRATORY FAILURE WITH HYPOXIA Status: Acute - Plan Plan: Pt is a 29M PMH significant for ESRD on HD, DMI (poorly controlled), MDD, HTN, HLD, Hx CVA x 2, poly-substance abuse who presents for: #Acute hypoxic respiratory failure, resolved -patient requiring O2 in ED, does not usually use oxygen at home -CXR on admission shows effusion, fluid overload -patient had emergent dialysis 01/29, 1.6L fluid off -HD on 01/30, 5.8L taken off -required oxygen after being placed in beargger, will wean oxygen today # Hyperkalemia - Missed last 2 Dialysis treatments - potassium 8.4>6.2>4.7>5.5 - Dr. Gonzalez and Dr. Hurd consulted in ED - emergency dialysis 01/29; appreciate rec's - given 6u novolin with 2 amps D50 and 1 amp bicarb in ED - HD on 01/30, 5.8L taken off # DM I # Hx of DKA - continue home meds, history of non-compliance - glucose 82 in ED - patient has had some BG lows in the hospital as he has not been eating meals, states he will try to eat breakfast today # ESRD - Missed last 2 dialysis sessions - emergent dialysis 01/29, HD on 01/30 - continue MWF dialysis - Dr. Gonzalez consulted, appreciate recs - continue home meds #HFpEF -emergent dialysis to remove fluid -SL for fluids -continue home meds # Thrombocytopenia - platelet count improved from last visit - monitor # HTN - continue home meds # Depression - continue home meds # Hx of Seizure D/O - continue home meds # Hx of Polysubstance abuse - pending drug screen #MDD -restarted home meds #Chronic anemia -at baseline -likely from ESRD, will continue to monitor #Chronic diarrhea -c diff antigen positive, toxin negative -campylobacter negative -imodium Diet: CC Fluids: SL VTE: heparin Code: Full Dispo: admitted to inpatient telemetry for cardiac monitoring, monitoring potassium; patient kept overnight due to decreased temps and glucose, which are now stable; patient will wean oxygen today and if patient continues to do will he will likely be d/c today with recommendations to continue MWF dialysis; Dr. Gonzalez consulted, appreciate recs PCP: Nasir
[2020-02-02 07:50] LABS: Hemoglobin A1c 10.1 % (4.0-6.0)
[2020-02-02] MEDS: Insulin Glargine 12 UNITS in Pre-Filled Syringe 1 EACH SC SCH (09:48)
[2020-02-02] MEDS: Cinacalcet HCl 30 MG TAB PO SCH (09:48)
[2020-02-02] MEDS: Amlodipine 10 MG TAB PO SCH (09:50)
[2020-02-02] MEDS: Sevelamer Carbonate 800 MG TAB PO SCH ×3 (09:50→21:52)
[2020-02-02] MEDS: HumaLOG 300 UNITS/3 ML VIAL SC SCH ×3 (09:50→21:51)
[2020-02-02] MEDS: levETIRAcetam 500 MG TAB PO SCH ×2 (09:51→21:53)
[2020-02-02] MEDS: hydrALAZINE 25 MG TAB PO SCH ×3 (09:51→21:53)
[2020-02-02] MEDS: Heparin 5,000 UNITS/ML VIAL SC SCH ×3 (09:51→21:52)
[2020-02-02] MEDS: Loperamide HCl 1 MG/7.5 ML UDCUP PO PRN ×2 (12:29→18:14)
--- NOTE | 2020-02-02 15:58 | PRG ---
DATE OF SERVICE: 02/02/2020 SUBJECTIVE: A 39-year-old gentleman being seen for end-stage renal disease. The patient denied any nausea, vomiting, or chest pain. OBJECTIVE: GENERAL: The patient is awake and alert. VITAL SIGNS: Afebrile, pulse 85, breathing 16, blood pressure 126/64. HEENT: Head normocephalic and atraumatic. Eyes intact, no ulcers. Nose intact, no ulcers. Ears intact, no ulcers. NECK: Supple. No JVD. CHEST: Symmetrical and clear. CARDIOVASCULAR: Shows S1 and S2, no rub, no murmur. GASTROINTESTINAL: Abdomen is soft, bowel sounds positive. EXTREMITIES: Show no edema or ulcers. SKIN: Shows no rash or petechiae. MUSCULOSKELETAL: Shows no joint swelling or stiffness. GENITOURINARY: Shows no Clif[place] or CVA tenderness. NEUROLOGIC: Motor intact. Cranial nerves intact. LABORATORY DATA: Reviewed. ASSESSMENT AND PLAN: 1. Stage 6 chronic kidney disease, plan dialysis. 2. Hypoxia, plan dialysis. 3. Pleural effusion management per primary team. 4. Anemia, stable. Overall prognosis is poor. Job ID: [id number]
--- NOTE | 2020-02-02 17:03 | RAD ---
AP CHEST: History: Change in respiratory status. Shortness of breath. Comparison: 02-01-2020 FINDINGS: Right side effusion with right lung infiltrate and atelectasis does not appear significantly changed. The left lung remains aerated and clear. IMPRESSION: No significant interval change. POS: [facility]
[2020-02-03] MEDS: Loperamide HCl 1 MG/7.5 ML UDCUP PO PRN ×2 (03:49→09:03)
[2020-02-03 04:55] LABS: Anion Gap 18 mmol/L (10-20); BUN (Urea Nitrogen) 39 mg/dL (8.9-20.6); Calc. Creatinine Clearance 16 mL/min (70-130); Calcium 7.7 mg/dL (7.8-10.44); Carbon Dioxide 24 mmol/L (22-29); Chloride 102 mmol/L (98-107); Estimated GFR-MDRD 11; Glucose 313 mg/dL (70-105); Sodium 139 mmol/L (136-145)
--- NOTE | 2020-02-03 07:07 | PDOC.FM ---
- Subjective Subjective: Doing well this morning, no acute events overnight. Eager for discharge. States he missed dialysis due to just not going, no transportation issues. Spoke at length regarding risks of missing dialysis and not taking his insulin, voiced understanding of risks. Tolerating PO well, no n/v. Still with chronic diarrhea. No fever/chills. Ambulating. - Objective Vital Signs & Weight: Vital Signs (12 hours) Temp Pulse Resp BP BP Pulse Ox 02/03/20 04:00 98.0 F 76 18 127/74 97 02/02/20 21:55 88 L 02/02/20 21:53 94 130/65 02/02/20 21:47 97.4 F L 94 19 130/60 93 L Weight Admit Weight 82.645 kg Weight 75.16 kg I&O: 02/02/20 02/03/20 02/04/20 06:59 06:59 06:59 Intake Total 2040 840 Output Total 0 1000 Balance 2040 -160 Result Diagrams: 02/02/20 04:00 02/03/20 04:08 EKG Reviewed by me: Yes (Tele: NSR) Phys Exam - Physical Examination Constitutional: NAD (resting comfortably, good spirits) HEENT: moist MMs Neck: supple Respiratory: no wheezing, no rales, no rhonchi, clear to auscultation bilateral Cardiovascular: RRR, no significant murmur, no rub Gastrointestinal: soft, non-tender, no distention, positive bowel sounds Musculoskeletal: no edema Dx/Plan (1) Acute respiratory failure with hypoxia Code(s): J96.01 - ACUTE RESPIRATORY FAILURE WITH HYPOXIA Status: Acute - Plan Plan: Pt is a 29M PMH significant for ESRD on HD, DMI (poorly controlled), MDD, HTN, HLD, Hx CVA x 2, poly-substance abuse who presents for: #Acute hypoxic respiratory failure, resolved - patient required O2 in ED, does not usually use oxygen at home; now weaned to RA and satting well - CXR on admission shows R effusion, fluid overload. Repeat CXR with effusion still present. - Pulm, Dr. Moreno, consulted, known to pt, apprec recs - patient had emergent dialysis 01/29, 1.6L fluid off - HD on 01/30, 5.8L taken off, again on 02/01 with 1L removed #Hyperkalemia, resolved - Missed last 2 Dialysis treatments prior to admission - potassium 8.4>6.2>4.7>5.5 -> 5.0 - Dr. Gonzalez and Dr. Hurd consulted in ED - emergency dialysis 01/29; appreciate rec's - given 6u novolin with 2 amps D50 and 1 amp bicarb in ED #DMI with h/o DKA - continue home meds, history of non-compliance - glucose 82 in ED - patient has had some BG lows in the hospital as he has not been eating meals - will need continued management of insulin regime. Discussed at length risks of missing insulin including DKA and , pt voiced understanding and risks but states he thinks he will cont to miss doses and skip meals #ESRD - Missed last 2 dialysis sessions. Counseled at length on risks of missing dialysis, no transportation issues, voiced understanding of risks - emergent dialysis 01/29, HD on 01/30 and 02/01 - continue MWF dialysis - Dr. Gonzalez consulted, appreciate recs - continue home meds #HFpEF - emergent dialysis to remove fluid - SL for fluids - continue home meds #Thrombocytopenia - platelet count improved from last visit - monitor #HTN - continue home meds #Depression - continue home meds #Hx of Seizure D/O - continue home meds #Hx of Polysubstance abuse - pending drug screen #Chronic anemia - at baseline - likely from ESRD, will continue to monitor #Chronic diarrhea - c diff antigen positive, toxin negative - campylobacter negative - imodium prn - consider pancreatic insufficiency, may need outpt workup Diet: CC Fluids: SL VTE: heparin Code: Full Dispo: Admitted to inpatient telemetry for hyperkalemia, patient kept overnight due to decreased temps and glucose, which are now stable; patient weaned to RA. Cont MWF dialysis; Dr. Gonzalez consulted, appreciate recs, anticipate discharge soon. Overall poor prognosis with multiple readmissions. PCP: Nasir Addendum - Attending - Attending Attestation Date/Time: 02/03/20 1110 I personally evaluated the patient and discussed the management with Dr. Pittman. I agree with the History, Examination, Assessment and Plan documented above with any addition or exceptions noted below. Patient stable. Known history of noncompliance with medical therapy. Awaiting HD completion today and should be stable for discharge.
[2020-02-03] MEDS: Sevelamer Carbonate 800 MG TAB PO SCH ×2 (08:47→13:59)
[2020-02-03] MEDS: Insulin Glargine 12 UNITS in Pre-Filled Syringe 1 EACH SC SCH (08:47)
--- NOTE | 2020-02-03 09:01 | RAD ---
PORTABLE CHEST 1 VIEW: Date: 02/03/2020 Time: 0510 hours HISTORY: Congestive heart failure. COMPARISON: Previous day. FINDINGS: The heart size is stable. Left-sided vascular stents are again seen. Right-sided pleural effusion and right lung infiltrates are again noted. The left lung is well-aerated and clear. No pneumothoraces a re seen. IMPRESSION: Stable exam. POS: [facility]
[2020-02-03] MEDS ORDERED: Loperamide HCl 2 MG CAP PO PRN (09:39)
--- NOTE | 2020-02-03 12:48 | PRG ---
DATE OF SERVICE: 02/03/2020 SUBJECTIVE: Patient was seen and examined at bedside and overnight events noted. Patient denies any shortness of breath or chest pain or palpitation. No history of nausea or vomiting or diarrhea or fever or chills or cramps. OBJECTIVE: GENERAL: This is a well-built male, in no apparent distress. VITAL SIGNS: Temperature 98.0, heart Rate 73, respiratory rate 18, and blood pressure 127/74. HEENT: Atraumatic, normocephalic. Oral mucosa is moist. NECK: Supple. CARDIOVASCULAR: S1, S2 heard. Rate and rhythm regular. RESPIRATORY: Clear to auscultation. GASTROINTESTINAL: Abdomen is soft. MUSCULOSKELETAL: No tenderness. No edema. DERMATOLOGIC: No skin rash. NEUROLOGIC: Alert and awake and oriented x3. No focal neurologic deficits. Moving all the extremities. PSYCHIATRIC: Mood and affect normal. LABORATORY DATA: Potassium 5.0, BUN is 39, and creatinine 6.6. ASSESSMENT AND PLAN: 1. End-stage renal disease, continue on dialysis. 2. Hypertension. 3. Anemia. 4. . 5. We will continue on dialysis as tolerated. Job ID: [id number]
--- NOTE | 2020-02-03 13:14 | CON ---
DATE OF CONSULTATION: 02/03/2020 HISTORY OF PRESENT ILLNESS: Silvestre Brush is a 39-year-old male, well known to me. I was consulted because of a pleural effusion. He admits that he is not always adhering to his fluid restriction. He says his mom tries to help him, but sometimes he goes a little too far in what he drinks from a liquid standpoint. He had a waxing and waning pleural effusion. He has not been febrile. PAST MEDICAL HISTORY: Remarkable for: 1. End-stage renal disease. 2. History of drug use in the distant past (PCP). 3. History of incarceration for several years. We did not see him during that time. 4. Status post lower extremity amputation. 5. Diabetes type 1. 6. Multiple admissions for diabetic ketoacidosis. 7. Hypertension. 8. History of CVA x2. MEDICATIONS: Have been reviewed. FAMILY HISTORY: Negative for lung disease in early age. SOCIAL HISTORY: His cousin works in the hospital. He smokes and still uses marijuana. Denies drinking. REVIEW OF SYSTEMS: Otherwise negative. PHYSICAL EXAMINATION: GENERAL: He is in no distress. He is examined in dialysis. VITAL SIGNS: He is afebrile, heart rate 70s, blood pressure 125/58, respiratory rate 16, and oximetry is improved to 91% on room air. He was 88% on 2 L yesterday, being dialyzed every day. LUNGS: Remarkable for decreased breath sounds at his right base. HEART: Regular rhythm. ABDOMEN: Soft. EXTREMITIES: Without clubbing, cyanosis, or edema. LABORATORY DATA: White count 5.5, hemoglobin 8.6, and platelets 87,000. Electrolytes are unremarkable. BUN 39 and creatinine 6.67. Creatinine was 14.5 on admission. BNP yesterday was 588. IMPRESSION AND PLAN: Pleural effusion secondary to volume overload. At this point in time, I do not feel thoracentesis is indicated. His x-ray tends to improve when he comes and gets frequent dialysis and has supervision over his intake. ____ and worsening of his x-ray, argues that compliance is the biggest issue. I do not feel a tap is indicated, but I will be happy to reassess him should his clinical condition fail. This is a 50 min consult with greater 50% of the time spent on unit with coordination of care. Job ID: [id number] [facility]
[2020-02-03] MEDS: HumaLOG 300 UNITS/3 ML VIAL SC SCH ×2 (13:45→13:55)
[2020-02-03] MEDS: hydrALAZINE 25 MG TAB PO SCH ×2 (13:46→16:30)
[2020-02-03] MEDS: Cinacalcet HCl 30 MG TAB PO SCH (13:46)
[2020-02-03] MEDS: levETIRAcetam 500 MG TAB PO SCH (13:46)
[2020-02-03] MEDS: Amlodipine 10 MG TAB PO SCH (13:47)
[2020-02-03] MEDS: Heparin 5,000 UNITS/ML VIAL SC SCH ×2 (13:55→16:30)
[2020-02-03 14:09] VITALS: TEMP 97.6
[2020-02-03 16:30] VITALS: BP 128/60
--- NOTE | 2020-02-04 07:57 | DIS ---
DATE OF ADMISSION: 01/30/2020 DATE OF DISCHARGE: 02/03/2020 RESIDENT: Dr. Jarad Pittman. ADMITTING ATTENDING: Dr. Doron Fisher. DISCHARGE ATTENDING: Dr. Efraín Mckinley. CONSULTS: 1. Nephrology, Dr. Gonzalez. 2. Pulmonology, Dr. Moreno. PROCEDURES: 1. Emergent hemodialysis on 01/30/2020. 2. Continued routine hemodialysis on Monday, Monday, and Monday. 3. Chest x-ray on 01/30/2020, demonstrating new confluent and hazy infiltrate throughout the left lung. Right-sided effusion and right basilar infiltrate and atelectasis are noted. Right upper lung opacity seen previously is slightly improved. 4. Chest x-ray on 02/03/2020 demonstrating stable exam and no acute changes from admission. PRIMARY DIAGNOSES: 1. Acute hypoxic respiratory failure, resolved. 2. Hyperkalemia, resolved. SECONDARY DIAGNOSES: 1. End-stage renal disease, on hemodialysis. 2. Insulin-dependent type 1 diabetic with history of diabetic ketoacidosis, poorly controlled. 3. Heart failure with preserved ejection fraction. 4. Thrombocytopenia. 5. Hypertension. 6. Depression. 7. History of seizure disorder. 8. History of polysubstance abuse. 9. Chronic anemia. 10. Chronic diarrhea. DISCHARGE MEDICATIONS: 1. Renvela 2400 mg p.o. t.i.d. with meals. 2. Sensipar 60 mg p.o. daily. 3. Hydralazine 25 mg p.o. t.i.d. 4. Amlodipine 10 mg p.o. daily. 5. Sertraline 25 mg p.o. daily. 6. Tylenol 650 mg p.o. q.4 hours p.r.n. 7. Humalog 3 units subcu t.i.d. with meals. 8. Keppra 500 mg p.o. b.i.d. 9. Lantus 12 units subcu daily in the morning. HISTORY OF PRESENT ILLNESS AND HOSPITAL COURSE: The patient is a 39-year-old male with past medical history significant for uncontrolled type 1 diabetic, end-stage renal disease, on hemodialysis, history of CVA x2, and polysubstance abuse including use of PCP, who presented with shortness of breath. He reported that he began to feel short of breath the night prior to admission, worse with lying down. He had missed two dialysis sessions due to just not feeling like getting out. He states he has been taking his medications as prescribed. In the ED, he was found to be hyperkalemic with a potassium of 8.5. He was given insulin with glucose and an amp of bicarb, and Nephrology was consulted for emergent hemodialysis. The patient was then admitted for further evaluation and management. Regarding the patient's hyperkalemia, this is likely secondary to missed dialysis. He is well known to Dr. Gonzalez and the [facility]. He was given emergent dialysis on 01/30/2020 with resolution of his hyperkalemia and continued on routine hemodialysis. The patient also presented with acute hypoxic respiratory failure secondary to missed dialysis. Chest x-ray showed worsening pleural effusions. Status post dialysis, his respiratory status improved, and he was able to be weaned to room air. The patient is well known to Dr. Moreno, who recommended continued hemodialysis as previously arranged. The patient has poorly controlled type 1 diabetes. He states he does not take his insulin at home and skips meals many times. The patient was beginning to be ready for discharge on 02/02/2020. However, skipped a meal and had an episode of hypoglycemia and hypothermia. This improved with Grabiel Hugger and p.o. intake, and at the time of discharge, the patient was stable. The patient also has end-stage renal disease on hemodialysis. It was recommended he continue on hemodialysis. Regarding the patient's chronic medical conditions of heart failure with preserved ejection fraction, thrombocytopenia, hypertension, depression, seizure disorder, chronic anemia, and chronic diarrhea, his home medications were continued. Of note, a Campylobacter was negative, and a C diff antigen was positive and toxin negative. At the time of discharge, the patient was stable. Respiratory status at baseline. Sugars appeared at baseline. It was discussed at length with the patient the need to continue on his home insulin regimen and to not miss dialysis appointments. Risks including were discussed with the patient regarding continued missed appointments. The patient voiced agreement and understanding of the discharge plan and was eager to be discharged home. All questions were answered appropriately. DISPOSITION: Stable. DISCHARGE INSTRUCTIONS: 1. Location: Home. 2. Diet: Renal, diabetic. 3. Activity: As tolerated. 4. Followup: The patient is to follow up with his primary care physician within one week of discharge at [facility]. The patient is to also follow up with dialysis on Monday, Monday, and Monday with Dr. Gonzalez as previously directed. Job ID: [id number]
== END 2020-02-03 17:10 | disposition home or self-care (01) | DRG 189 ==
LOC: ERS 10:31 → 2NO 13:17
PROVIDERS: ADMIT Family Medicine; ATTEND Family Medicine
PROC: 5A1D70Z Performance of Urinary Filtration, Intermittent, Less than 6 Hours Per Day (ICD-10-PCS; principal; 2020-01-31)
DX: J96.01 Acute respiratory failure with hypoxia (principal); N18.6 End stage renal disease; I50.32 Chronic diastolic (congestive) heart failure; J90 Pleural effusion, not elsewhere classified; I13.2 Hypertensive heart and chronic kidney disease with heart failure and with stage 5 chronic kidney disease, or end stage renal disease; E87.5 Hyperkalemia; D69.6 Thrombocytopenia, unspecified; F32.9 Major depressive disorder, single episode, unspecified; G40.909 Epilepsy, unspecified, not intractable, without status epilepticus; D63.1 Anemia in chronic kidney disease; K52.9 Noninfective gastroenteritis and colitis, unspecified; E10.22 Type 1 diabetes mellitus with diabetic chronic kidney disease; E10.65 Type 1 diabetes mellitus with hyperglycemia; F17.200 Nicotine dependence, unspecified, uncomplicated; F19.10 Other psychoactive substance abuse, uncomplicated; E87.70 Fluid overload, unspecified; E10.649 Type 1 diabetes mellitus with hypoglycemia without coma; Z99.2 Dependence on renal dialysis; Z86.73 Personal history of transient ischemic attack (TIA), and cerebral infarction without residual deficits; Z91.15 Patient's noncompliance with renal dialysis; Z88.0 Allergy status to penicillin; Z79.899 Other long term (current) drug therapy; Z79.4 Long term (current) use of insulin; Z89.511 Acquired absence of right leg below knee
CPT/HCPCS: 36415; 36416; 71045; 80048; 80053; 82550; 83036; 83605; 83690; 83735; 83880; 84145; 85025; 85027; 87045; 87046; 87081; 87324; 87427; 87449; 87493; 90935; 93005; 96374; 96375; G0257; J1644; J1815

== ENCOUNTER 2020-02-17 12:37 | Inpatient (IN) | payer MEDICARE, MEDICAID, OTHER ==
[~2020-02-17 12:37] MED LIST changes: +Heparin 1,000 UNITS/ML VIAL ONE; -Heparin 10,000 UNITS/ 10 ML VIAL ONE
--- NOTE | 2020-02-17 13:23 | RAD ---
RADIOGRAPH CHEST 1 VIEW: DATE: 02/17/2020 TIME: 1:12 PM HISTORY: 39-year-old male with altered mental status. Concern for aspiration. Follow-up abnormal chest radiogr aph.. COMPARISON: 02/03/2020 FINDINGS: The previously demonstrated right pleural effusion, and the underlying dense diffuse consolidation of the lower half of the right lung, have worsened. Right apex is clear. Right midlung zone is partially opacified. Cardiac size near upper limits of normal. Multiple left axillary, subclavian, an d brachiocephalic vascular stents are again noted. No pneumothorax. Visualized portions of left lung are grossly clear. IMPRESSION: Interval worsening of moderate to large right pleural effusion and underlying consolidation of right lower lobe and right middle lobe.
[2020-02-17 13:38] LABS: #Basophils 0.1 thou/uL (0.0-0.2); #Lymphocytes 1.3 thou/uL (1.20-3.40); #Monocytes 0.8 thou/uL (0.11-0.59); #Neutrophils 3.8 thou/uL (1.40-6.50); %Basophils 1.1 % (0.0-1.0); %Eosinophils 0.2 % (0.0-10.0); %Lymphocytes 21.4 % (21.0-51.0); %Monocytes 13.7 % (0.0-10.0); %Neutrophils 63.5 % (42.0-75.0); Hemoglobin 9.4 g/dL (14.0-18.0); Mean Corpuscular HGB CONC 31.3 g/dL (32.0-36.0); Mean Corpuscular Hemoglobin 29.4 pg (27.0-31.0); Platelet Count 113 thou/uL (130-400); RBC Distribution Width 16.7 % (11.5-14.5); Red Blood Cell (RBC) Count 3.19 mill/uL (4.70-6.10)
[2020-02-17 13:44] LABS: Actual Bicarbonate (HCO3v) 11 mEq/L (22-28); Analyzer IN Cardio ER; Base Excess -17.8 mEq/L (-2.0 to +3.0); Calcium, Ionized 1.04 mmol/L (1.16-1.32); Chloride (ABG LAB) 92 mmol/L (98-106); Hemoglobin (Hb) 10.4 g/dL (13.2-17.3); Potassium - ABG Lab 6.43 mmol/L (3.70-5.30)
[2020-02-17 13:48] LABS: pH (venous) 7.08 (7.32-7.43)
[2020-02-17] MEDS ORDERED: Insulin Regular 300 UNITS/3 ML VIAL ONE (13:57)
[2020-02-17] MEDS ORDERED: Sodium Bicarb 50 MEQ/50 ML VIAL ONE (13:57)
[2020-02-17] MEDS ORDERED: Ondansetron PF 4 MG/2 ML Vial ONE ×2 (13:57→14:01)
[2020-02-17] MEDS ORDERED: Albuterol Sulfate 2.5 mg/3 ml Neb ONE (13:59)
[2020-02-17] MEDS ORDERED: Albuterol Sulfate 2.5 mg/0.5 ml Neb ONE (13:59)
[2020-02-17] MEDS ORDERED: Calcium Chloride 1 GM/10 ML Abboject SYRINGE ONE (14:03)
[2020-02-17] MEDS ORDERED: Sodium Bicarb 50 MEQ/50 ML Abboject 8.4% SYRINGE ONE (14:03)
[2020-02-17 14:07] LABS: ALT (SGPT) 19 U/L (8-55); AST (SGOT) 12 U/L (5-34); Albumin 3.8 g/dL (3.5-5.0); Alkaline Phosphatase 164 U/L (40-110); Anion Gap 40 mmol/L (10-20); BUN (Urea Nitrogen) 111 mg/dL (8.9-20.6); Bilirubin, Total 0.4 mg/dL (0.2-1.2); CK (CPK) 65 U/L (30-200); Calc. Creatinine Clearance 0 mL/min (70-130); Calcium 7.8 mg/dL (7.8-10.44); Chloride 92 mmol/L (98-107); Estimated GFR-MDRD 5; Globulin 3.1 g/dL (2.4-3.5); Lipase 65 U/L (8-78); Potassium 6.4 mmol/L (3.5-5.1); Protein, Total 6.9 g/dL (6.0-8.3); Sodium 134 mmol/L (136-145)
[2020-02-17 14:14] LABS: Carbon Dioxide 8 mmol/L (22-29); Glucose 631 mg/dL (70-105)
[2020-02-17] MEDS ORDERED: Insulin Regular 100 units/100 ml in NS IVPB SCH (14:15)
--- NOTE | 2020-02-17 14:53 | PDOC.FPRHP ---
- History of Present Illness Chief Complaint: Hyperglycemia History of Present Illness: Pt is a 39 yo with a significant PMH including ESRD on dialysis, diabetes mellitus who presented to the emergency department with elevated blood sugars. He missed 2 rounds of dialysis. He has been seen multiple times for fluid overload and DKA. Pt is obtunded and unable to appropriately answer questions. ED Course: SPS (with sorbitol) oral 30 g Oral Acknowledged 13:53 02/17/2020 NovoLIN R Regular U-100 Insuln 6 units/hr IV Fluid Infusion Given 14:47 02/17/2020 calcium chloride 100 mg/ml IV Push Given 14:27 02/17/2020 *sodium bicarbonate intravenous 1 amp(s) IV Push Given 14:23 02/17/2020 NovoLIN R Regular U-100 Insuln 10 units IV Push Given 14:18 02/17/2020 ondansetron HCl intravenous 8 mg IV Push Given 14:11 02/17/2020 *albuterol sulfate inhalation 5 mg Nebulize Given 14:02 02/17/2020 sodium chloride 0.9 % intravenous 1 L IV Fluid Infusion Given 13 :13 02/17/2020 - Allergies/Adverse Reactions Allergies Allergy/AdvReac Type Severity Reaction Status Date / Time Penicillins Allergy Unknown Verified 01/30/20 17:14 - Home Medications Medication Instructions Recorded Confirmed Type Sevelamer Carbonate [Renvela] 2,400 mg PO TID-WM 09/08/15 01/30/20 History Amlodipine Besylate [amLODIPine 10 mg PO DAILY 09/02/16 01/30/20 History Besylate] Cinacalcet HCl [Sensipar] 60 mg PO DAILY 09/02/16 01/30/20 History hydrALAZINE [Apresoline] 25 mg PO TID 09/02/16 01/30/20 History Sertraline HCl 25 mg PO DAILY 03/03/17 01/30/20 History Acetaminophen [Tylenol Regular 650 mg PO Q4H PRN tab 09/27/18 01/30/20 Rx Strength] HumaLOG [HumaLOG Vial] 3 units SC TID-WM vial 11/26/19 01/30/20 Rx levETIRAcetam [Keppra] 500 mg PO BID #0 tab 11/26/19 01/30/20 Rx Insulin Glargine [Lantus Vial] 12 units SC QAM vial 02/01/20 Rx Albumin 25% 100 ml IVPB ASDIR PRN #1 bot 02/17/20 Rx - History PMHx: uncontrolled DM I, MDD, HTN, ESRD on HD, Hx of CVA x 2, polysubstance abuse PSHx: R BKA, R arm dialysis fistula, dialysis shunt R chest, L arm dialysis fistula FHx: non-contributory Social: smokes 1/2ppd, uses marijuana every 2-3 days, reports last used pcp 2-3 months ago, no etoh use - Review of Systems ROS unobtainable: due to mental status - Vital signs VITAL SIGNS MonFeb 17, 2020 12:41 KANWAL Batista Tammy BP: 96/44, MAP: 61, Pulse: 78, Resp: 18, Pain: UTR, O2 sat: 95 on (Room Air), Time: 02/17/2020 12:41. VITAL SIGNS MonFeb 17, 2020 13:15 KANWAL Batista Tammy BP: 113/58, Pulse: 73, Resp: 12, Pain: UTR, O2 sat: 94 on (2L Oxygen), Time: 13:15. VITAL SIGNS MonFeb 17, 2020 14:34 KANWAL Batista Tammy BP: 101/55, MAP: 70, Pulse: 75, Resp: 16, Pain: UTR, O2 sat: 96 on (2L Oxygen), Time: 02/17/2020 14:34 weight 67kg - Physical Exam -Constitutional: AAO x [address], responsive but unable to respond appropriately, understands commands HEENT: normocephalic and atraumatic, EOMI Neck: FROM, trachea midline, no JVD Heart: RRR, normal S1/S2 Lungs: CTAB, no respiratory distress, no wheezing Abdomen: soft, non-tender, bowel sounds present Musculoskeletal: normal structure, normal tone Neurological: normal sensation -Neurological: GSC 15 Skin: no rash/lesions, capillary refill <2 seconds Heme/Lymphatic: no purpura, no petechia FMR H&P: Results - Labs Result Diagrams: 02/17/20 13:21 02/17/20 13:21 Lab results: WBC 6.0 thou/uL (4.8-10.8) 02/17/20 13:21 Hgb 9.4 g/dL (14.0-18.0) L 02/17/20 13:21 Hct 30.0 % (42.0-52.0) L 02/17/20 13:21 MCV 94.0 fL (78.0-98.0) 02/17/20 13:21 Plt Count 113 thou/uL (130-400) L 02/17/20 13:21 Neutrophils % 63.5 % (42.0-75.0) 02/17/20 13:21 VBG pH 7.08 (7.32-7.43) L* 02/17/20 13:37 VBG pCO2 38.9 mmHg (42-51) L 02/17/20 13:37 VBG pO2 206.6 mmHg (35-45) H 02/17/20 13:37 Sodium 134 mmol/L (136-145) L 02/17/20 13:21 Potassium 6.4 mmol/L (3.5-5.1) H 02/17/20 13:21 Chloride 92 mmol/L (98-107) L 02/17/20 13:21 Carbon Dioxide 8 mmol/L (22-29) L* 02/17/20 13:21 BUN 111 mg/dL (8.9-20.6) H 02/17/20 13:21 Creatinine 12.90 mg/dL (0.7-1.3) H 02/17/20 13:21 Glucose 631 mg/dL (70-105) H* 02/17/20 13:21 Calcium 7.8 mg/dL (7.8-10.44) 02/17/20 13:21 Total Bilirubin 0.4 mg/dL (0.2-1.2) 02/17/20 13:21 AST 12 U/L (5-34) 02/17/20 13:21 ALT 19 U/L (8-55) 02/17/20 13:21 Alkaline Phosphatase 164 U/L (40-110) H 02/17/20 13:21 Creatine Kinase 65 U/L (30-200) 02/17/20 13:21 B-Natriuretic Peptide 1381.2 pg/mL (0-100) H 02/17/20 13:21 Serum Total Protein 6.9 g/dL (6.0-8.3) 02/17/20 13:21 Albumin 3.8 g/dL (3.5-5.0) 02/17/20 13:21 Lipase 65 U/L (8-78) 02/17/20 13:21 FMR H&P: A/P - Problem List (1) Acute respiratory failure with hypoxia Current Visit: No Status: Acute Code(s): J96.01 - ACUTE RESPIRATORY FAILURE WITH HYPOXIA (2) Elevated brain natriuretic peptide (BNP) level Current Visit: No Status: Acute Code(s): R79.89 - OTHER SPECIFIED ABNORMAL FINDINGS OF BLOOD CHEMISTRY (3) Hyperkalemia Current Visit: No Status: Acute Priority: High Code(s): E87.5 - HYPERKALEMIA (4) Increased anion gap metabolic acidosis Current Visit: No Status: Acute Code(s): E87.2 - ACIDOSIS (5) Thrombocytopenia Current Visit: No Status: Acute Code(s): D69.6 - THROMBOCYTOPENIA, UNSPECIFIED (6) Depression Current Visit: No Status: Chronic Priority: Low Code(s): F32.9 - MAJOR DEPRESSIVE DISORDER, SINGLE EPISODE, UNSPECIFIED Qualifiers: Depression Type: major depressive disorder Active/Remission status: currently active Psychotic features: without psychotic features (7) Diabetes mellitus type 1 with complications Current Visit: No Status: Chronic Priority: High Code(s): E10.8 - TYPE 1 DIABETES MELLITUS WITH UNSPECIFIED COMPLICATIONS (8) Drug abuse, phencyclidine Current Visit: No Status: Chronic Code(s): F16.10 - HALLUCINOGEN ABUSE, UNCOMPLICATED (9) ESRD (end stage renal disease) on dialysis Current Visit: No Status: Chronic Code(s): N18.6 - END STAGE RENAL DISEASE; Z99.2 - DEPENDENCE ON RENAL DIALYSIS (10) Hypertension Current Visit: No Status: Chronic Code(s): I10 - ESSENTIAL (PRIMARY) HYPERTENSION Qualifiers: Hypertension type: essential hypertension Qualified Code(s): I10 - Essential (primary) hypertension (11) Non-compliance with renal dialysis Current Visit: No Status: Chronic Code(s): Z91.15 - PATIENT'S NONCOMPLIANCE WITH RENAL DIALYSIS (12) Polysubstance abuse Current Visit: No Status: Chronic Priority: Low Code(s): F19.10 - OTHER PSYCHOACTIVE SUBSTANCE ABUSE, UNCOMPLICATED FMR H&P: Upper Level - Plan Pt is a 29M PMH significant for ESRD on HD, DMI (poorly controlled), MDD, HTN, HLD, Hx CVA x 2, polysubstance abuse who presents for: Acute hypoxic respiratory failure A- Pt requiring O2 on admission, CXR shows worsening of chronic pleural effusion. 2/2 missed dialysis, volume overload. Treatment plan is challenged by the need for IVF for DKA. He is s/p 1L IVF in ED. P- Dialysis -hold further fluids right now -O2 as needed -admit to IMCU DKA 2/2 non compliance to insulin, type 1 diabetes A- Pt stable on insulin drip in ED. on admission pH - 7.08, beta- hydroxybutyrate 7, BG in 600s on admission P- continue insulin drip -dialysis -BMP q2h -BG q1h -holding fluids and potassium replacement part of DKA protocol considering pts ESRD status. Hyperkalemia A- secondary to above, pt stable. P- going to emergency dialysis Chest consolidation A- CXR shows underlying consolidation however pt not showing over s/s of PNA P- will order procal -consider adding ABX if appropriate ESRD on HD -dialysis per above Thrombocytopenia -2/2 ESRD, stable from previous admissions HTN -continue home meds, will restart when home meds reconciled Depression -continue home meds Hx of Seizure D/O -continue home meds Hx of Polysubstance abuse -MD aware, advise cessation MDD -restart home meds Chronic anemia -at baseline, likely from ESRD, will continue to monitor Diet: NPO Fluids: SL VTE: heparin Code: Full Dispo: inpt, IMCU PCP: JANELL Hardwick Addendum - Attending - Attending Attestation Date/Time: 02/17/20 1616 I personally evaluated the patient and discussed the management with Dr. Lazar. I agree with the History, Examination, Assessment and Plan documented above with any addition or exceptions noted below. Patient with longstanding history of med noncompliance here with volume overload and DKA. Will need HD, IV insulin and frequent metabolic checks. History of similar presentations all due to noncompliance.
[2020-02-17] MEDS ORDERED: Sodium Chloride 0.9% 1,000 ML IV SCH (17:13)
[2020-02-17] MEDS ORDERED: Ondansetron PF 4 MG/2 ML Vial IVP PRN (17:13)
[2020-02-17] MEDS ORDERED: Ondansetron ODT 4 MG TAB SL PRN (17:13)
[2020-02-17] MEDS ORDERED: NS 0.9% w/ 20 MEQ KCL 1,000 ML/1,000 ML BAG IV PRN ×2 (17:14)
[2020-02-17] MEDS ORDERED: Dextrose 5% in Water 1,000 ML IV PRN (17:14)
[2020-02-17] MEDS ORDERED: D5 1/2 NS w/20 mEq KCL 1,000 ML IV PRN (17:14)
[2020-02-17] MEDS ORDERED: Dextrose 5 %-0.45 % NaCl 1,000 ML IV PRN (17:14)
[2020-02-17] MEDS ORDERED: Dextrose 50% Abboject 50 ML SYRINGE SLOW IVP PRN ×2 (17:14)
[2020-02-17] MEDS ORDERED: Sodium Chloride 0.9% 1,000 ML IV PRN ×4 (17:14)
[2020-02-17] MEDS ORDERED: ADD ELECTROLYTE REPLACEMENT SET TO PROFILE FS SCH (17:15)
[2020-02-17] MEDS ORDERED: HUMULIN R 100 UNITS in Sodium Chloride 0.9% 100 ML IVPB SCH (17:15)
[2020-02-17] MEDS ORDERED: Cefepime 1 GM in Sodium Chloride 0.9% 100 ML IVPB SCH (18:00)
[2020-02-17 18:08] LABS: Chloride 97 mmol/L (98-107); Potassium 5.4 mmol/L (3.5-5.1); Sodium 136 mmol/L (136-145)
[2020-02-17 18:09] LABS: Calcium 7.9 mg/dL (7.8-10.44); Glucose 439 mg/dL (70-105)
[2020-02-17 18:11] LABS: Anion Gap 27 mmol/L (10-20); Carbon Dioxide 17 mmol/L (22-29)
[2020-02-17 18:12] LABS: Calc. Creatinine Clearance 8 mL/min (70-130); Estimated GFR-MDRD 6
[2020-02-17 18:13] LABS: BUN (Urea Nitrogen) 91 mg/dL (8.9-20.6)
[2020-02-17] MEDS ORDERED: Norepinephrine 8 MG in Dextrose 5% in Water 242 ML IVPB PRN (18:14)
[2020-02-17] MEDS ORDERED: Norepinephrine 8 MG/0.9% NS 250 ML IVPB SCH (18:17)
--- NOTE | 2020-02-17 18:56 | CON ---
DATE OF CONSULTATION: 02/17/2020 CONSULTING PHYSICIAN: Tj Lazar MD REASON FOR CONSULTATION: End-stage renal disease evaluation and care. REASON FOR ADMISSION: Altered mentation. HISTORY OF PRESENT ILLNESS: This is a 39-year-old male with history of type 2 diabetes, end-stage renal disease, hypertension, and noncompliance, who came to the hospital with above complaints and he missed dialysis for a few days. The patient was seen during dialysis and dialysis nurse was trying to access. PAST MEDICAL HISTORY: Positive for end-stage renal disease, type 2 diabetes, hypertension, and substance abuse. PAST SURGICAL HISTORY: Fistula placement and BKA. SOCIAL HISTORY: Smoking and illicit drug abuse present. FAMILY HISTORY: No history of kidney disease. MEDICATIONS: Reviewed. ALLERGIES: TO PENICILLIN. REVIEW OF SYSTEMS: Could not be obtained as the patient is having an altered mentation. PHYSICAL EXAMINATION: GENERAL: Reveals a well-built male, confused and altered. VITAL SIGNS: Temperature is 97.4, pulse 78, respiratory rate 18, and blood pressure 96/44. HEENT: Atraumatic, normocephalic. NECK: Supple. Cardiovascular: S1 and S2 heard. RESPIRATORY: Clear. GASTROINTESTINAL: Abdomen is soft. MUSCULOSKELETAL: Trace edema. NEUROLOGIC: Confused. LABORATORY DATA: Hemoglobin 9.4. Potassium 6.4, , glucose 631, and creatinine 12.9. BNP is 1381. ASSESSMENT AND PLAN: 1. End-stage renal disease. We will have emergent dialysis due to hyperkalemia, severe acidosis, altered mentation, and uremia. 2. Severe hyperkalemia. 3. Severe acidosis. 4. Hyperglycemia. 5. Altered mentation. 6. Uremic encephalopathy. 7. Anemia of chronic disease. 8. Metabolic acidosis. 9. Elevated BNP. 10. History of hypertension. 11. Polysubstance abuse. Plan is to have emergent dialysis. Dialysis nurse notified. There is concerns for access not working well. If that is the case, surgeon is also being notified and is willing to put a temporary femoral dialysis catheter. We will continue to follow. Thank you for the consult. Job ID: [id number]
[2020-02-17] MEDS ORDERED: Vancomycin 1 GM in Premix Bag 1 BAG IVPB SCH (19:15)
[2020-02-17] MEDS ORDERED: Vancomycin HCl 500 MG in Sodium Chloride 0.9% 100 ML IVPB SCH (19:15)
[2020-02-17] MEDS ORDERED: Vancomycin HCl 750 MG in Sodium Chloride 0.9% 250 ML 250 ML IVPB SCH (19:15)
[2020-02-17] MEDS ORDERED: Vancomycin 1.5 GRAM/300 ML BAG 1.5 GM in Premix Bag 1 BAG IVPB SCH (19:15)
[2020-02-17] MEDS ORDERED: HOLD VANCOMYCIN FOR LEVEL >20 FS SCH (19:15)
[2020-02-17] MEDS ORDERED: Vancomycin HCl 250 MG in Sodium Chloride 0.9% 100 ML IVPB SCH (19:15)
--- NOTE | 2020-02-17 19:53 | CON ---
DATE OF CONSULTATION: 02/17/2020 HISTORY OF PRESENT ILLNESS: Silvestre Brush is a 39-year-old male with one leg, long-standing history of type 1 diabetes, and end-stage renal disease. He also has a longstanding history of medical noncompliance. He presented with hyperglycemia and a metabolic acidosis. He was transferred to critical care unit from the dialysis unit after he was noted to be hypotensive. Dr. Isaebl is placing a central line. PAST MEDICAL HISTORY: Also remarkable for history of hypertension, CVA, substance abuse, right BKA, multiple dialysis access procedures. FAMILY HISTORY: Negative for lung disease in early age. His aunt works here in the radiology department. SOCIAL HISTORY: He is a smoker, still uses drugs intermittently. He is not a drinker. PHYSICAL EXAMINATION: VITAL SIGNS: Blood pressure is currently 105/50, heart rates in the 70s, respiratory rate in the teens, oximetry is 99%. HEENT: Pupils reactive. Sclerae are anicteric. He is confused. NECK: Without lymphadenopathy. LUNGS: Remarkable for equal breath sounds. HEART: Regular rhythm. ABDOMEN: Soft and nontender. EXTREMITIES: Without edema. LABORATORY DATA: PH by venous gas is 7.08. White count 6, hemoglobin 9.4, platelets 113,000. Bicarb was 8 on chem-7, potassium was 6.4, glucose was 631. IMPRESSION: 1. Diabetic ketoacidosis. 2. Chronic right-sided pleural effusion. 3. History of medical noncompliance. 4. End-stage renal disease. 5. Diabetes. 6. Status post right lower extremity amputation for peripheral vascular disease. PLAN: Continue supportive care with pressors as needed. Empiric antimicrobial therapy for presumed sepsis and dialysis urgently. This is a 70 min consult with 50% of time spent on unit with coordination of care. Job ID: [id number] [facility]
[2020-02-17 20:31] LABS: Anion Gap 20 mmol/L (10-20); BUN (Urea Nitrogen) 61 mg/dL (8.9-20.6); Calc. Creatinine Clearance 12 mL/min (70-130); Calcium 8.2 mg/dL (7.8-10.44); Carbon Dioxide 24 mmol/L (22-29); Chloride 98 mmol/L (98-107); Estimated GFR-MDRD 9; Glucose 230 mg/dL (70-105); Potassium 4.6 mmol/L (3.5-5.1); Sodium 137 mmol/L (136-145)
--- NOTE | 2020-02-17 20:40 | CON ---
DATE OF CONSULTATION: HISTORY OF PRESENT ILLNESS: A 39-year-old male patient, well known to me. I placed a right arm fistula in 2018. The patient has inflow proximal radial artery and outflow cephalic vein. Apparently, recently, he saw Dr. Yanez and a stent was placed in the cephalic arch. The patient has a history of noncompliance with dialysis. On this occasion, however, he reported to [facility] on Monday 3 days ago, underwent dialysis and reported that it took longer than usual and clearances were poor and the dialysis unit felt that there were still suboptimal function of his fistula. The patient was feeling ill over the weekend and was brought to the emergency room, found to be acidotic, hyperglycemic, glucose in the 600, pH is 7.08. He is relatively hypotensive. Reported that over the weekend he is having nausea and feeling ill, but the family did not take him seriously. In the emergency room, his blood pressure initially was 85/42, 87/43. When he arrived following the dialysis unit later in the afternoon, his pressure was in the 50s. I was called. We moved him in urgently to the intensive care unit. Due to his suboptimally functioning right upper arm fistula, although I can feel a thrill and hear a bruit, a temporary dialysis catheter was placed both to provide IV access and the back up for dialysis in case he was not adequately able to dialyze. The patient was noted to be confused on admission in the emergency room. His white count was 6 and hemoglobin 9.4. Sodium 133, potassium 6.4, carbon dioxide 8, BUN 111, creatinine 12, GFR 5, and glucose 550. BNP 1381. Echocardiogram in 08/2018, normal EF. Minimal valvular disease. The patient is admitted and prepared to undergo dialysis. X-ray reveals a stent in the cephalic arch area. ALLERGIES: PENICILLIN AND TOBACCO. PAST SURGICAL HISTORY: Right arm fistula, stent placed by Dr. Yanez recently, fistula performed in 2018. Right BKA. Eye surgery with Dr. Eid. He has had a prior left arm graft that has failed. SOCIAL HISTORY: History of polysubstance abuse. The patient lives with his family. PHYSICAL EXAMINATION: GENERAL: The patient arouses to sternal rub. The patient is confused, does not answer questions appropriately. VITAL SIGNS: Blood pressure in the dialysis unit systolic 58, once in ICU systolic blood pressure 80, on Levophed blood pressure systolic over 100. LUNGS: Clear to auscultation. CARDIAC: Regular rate and rhythm. ABDOMEN: Soft. EXTREMITIES: Right upper extremity fistula is soft. I can feel a thrill, hear a bruit. Right upper arm fistula thrombosed. Right BKA status. Left ankle, no edema. ASSESSMENT AND PLAN: 1. Severe acidosis and hyperglycemia. Plan emergent dialysis. Plan placement of femoral dialysis lining for backup dialysis access and to provide IV access for pressors. 2. Uremic and hypotensive. 3. Dysfunctional right arm fistula per above repeat his fistulogram while he present in this hospitalization, would not place any more stents. This fistula could be revised to a more durable access axillary vein. If it is dysfunctional, we will await fistulogram reports. 4. History of polysubstance abuse. Job ID: [id number]
[2020-02-17] MEDS: Heparin 5,000 UNITS/ML VIAL SC SCH (21:02)
[2020-02-17 22:19] LABS: Anion Gap 18 mmol/L (10-20); BUN (Urea Nitrogen) 54 mg/dL (8.9-20.6); Calc. Creatinine Clearance 13 mL/min (70-130); Calcium 8.3 mg/dL (7.8-10.44); Carbon Dioxide 26 mmol/L (22-29); Chloride 98 mmol/L (98-107); Estimated GFR-MDRD 10; Glucose 172 mg/dL (70-105); Potassium 4.5 mmol/L (3.5-5.1); Sodium 137 mmol/L (136-145)
[2020-02-17] MEDS ORDERED: Insulin Glargine 12 UNITS in Pre-Filled Syringe 1 EACH SC SCH (23:15)
[2020-02-18 00:27] LABS: Anion Gap 19 mmol/L (10-20); BUN (Urea Nitrogen) 57 mg/dL (8.9-20.6); Calc. Creatinine Clearance 12 mL/min (70-130); Calcium 8.2 mg/dL (7.8-10.44); Carbon Dioxide 27 mmol/L (22-29); Chloride 100 mmol/L (98-107); Estimated GFR-MDRD 9; Glucose 115 mg/dL (70-105); Potassium 4.5 mmol/L (3.5-5.1); Sodium 141 mmol/L (136-145)
[2020-02-18 02:44] LABS: Anion Gap 20 mmol/L (10-20); BUN (Urea Nitrogen) 58 mg/dL (8.9-20.6); Calc. Creatinine Clearance 11 mL/min (70-130); Calcium 8.1 mg/dL (7.8-10.44); Carbon Dioxide 26 mmol/L (22-29); Chloride 100 mmol/L (98-107); Estimated GFR-MDRD 9; Glucose 130 mg/dL (70-105); Potassium 4.7 mmol/L (3.5-5.1); Sodium 141 mmol/L (136-145)
[2020-02-18] MEDS ORDERED: HumaLOG 300 UNITS/3 ML VIAL SC PRN ×2 (03:46)
--- NOTE | 2020-02-18 07:35 | PDOC.FM ---
- Subjective Subjective: Eating, pleasant, doing well. States breathing much improved, on nasal cannula. No fevers, chills No concerns - Objective MAR Reviewed: Yes Vital Signs & Weight: Vital Signs (12 hours) Temp Pulse Ox 02/18/20 04:00 97.3 F L 02/18/20 00:00 96.8 F L 100 02/17/20 20:00 97.1 F L 100 Weight Weight 71 kg Most Recent Monitor Data Heart Rate from ECG 83 NIBP 112/59 NIBP BP-Mean 76 Respiration from ECG 16 SpO2 100 I&O: 02/17/20 02/18/20 02/19/20 06:59 06:59 06:59 Intake Total 1108.5 0 Balance 1108.5 0 Result Diagrams: 02/18/20 07:51 02/18/20 07:51 Phys Exam - Physical Examination Constitutional: NAD HEENT: PERRLA Neck: full ROM dec lung sounds in bases Cardiovascular: RRR, no significant murmur Gastrointestinal: soft, non-tender lower leg amputation right arm fistula Neurological: non-focal Psychiatric: normal affect, A&O x 3 Dx/Plan (1) Sepsis Code(s): A41.9 - SEPSIS, UNSPECIFIED ORGANISM Status: Acute (2) CAP (community acquired pneumonia) Code(s): J18.9 - PNEUMONIA, UNSPECIFIED ORGANISM Status: Acute (3) Hyperkalemia Code(s): E87.5 - HYPERKALEMIA Status: Acute (4) Diabetes mellitus type 1 with complications Code(s): E10.8 - TYPE 1 DIABETES MELLITUS WITH UNSPECIFIED COMPLICATIONS Status: Chronic (5) Drug abuse, phencyclidine Code(s): F16.10 - HALLUCINOGEN ABUSE, UNCOMPLICATED Status: Chronic - Plan Plan: Pt is a 29M PMH significant for ESRD on HD, DMI (poorly controlled), MDD, HTN, HLD, Hx CVA x 2, polysubstance abuse who presents for: Acute hypoxic respiratory failure A- Pt requiring O2 on admission, CXR shows worsening of chronic pleural effusion. 2/2 missed dialysis, volume overload P- Continue dialysis -Repeat CXR Septic shock 2/2 PNA -Vanc/cefepime, continue pending BCx -Had required 1 hour of levophed, BPs stable off for several hours DKA 2/2 non compliance to insulin, type 1 diabetes -Gap closed, transition to lantus this AM -Cover with SS today, then restart lantus this evening; qHS -Possible issue with fistula, gen surg on board. Plan for vein mapping COVID NEGATIVE -COVID precautions Hyperkalemia -2/2 to missed HD -Resolved -Continue BMPs Chest consolidation A- CXR shows underlying consolidation however pt not showing over s/s of PNA P- will order procal -consider adding ABX if appropriate ESRD on HD -dialysis per above Thrombocytopenia -2/2 ESRD, stable from previous admissions HTN -continue home meds, will restart when home meds reconciled Depression -continue home meds Hx of Seizure D/O -continue home meds Hx of Polysubstance abuse -MD aware, advise cessation MDD -restart home meds Chronic anemia -at baseline, likely from ESRD, will continue to monitor Diet: Renal Diet Fluids: SL VTE: heparin Code: Full Dispo: inpt, IMCU Lines: Right trialysis catheter PCP: JANELL Hardwick Addendum - Attending - Attending Attestation Date/Time: 02/18/20 1311 I personally evaluated the patient and discussed the management with Dr. Dalton. I agree with the History, Examination, Assessment and Plan documented above with any addition or exceptions noted below. Patient improved. On empiric abx. Needs continued HD. Now on SQ insulin. Adjust as needed.
--- NOTE | 2020-02-18 07:51 | OP ---
DATE OF PROCEDURE: 02/17/2020 PREOPERATIVE DIAGNOSIS: Poor IV access, dysfunctional fistula right upper arm cephalic vein type. POSTOPERATIVE DIAGNOSIS: Poor IV access, dysfunctional fistula right upper arm cephalic vein type. PROCEDURE PERFORMED: Right femoral vein Trialysis catheter. ANESTHESIA: 1% Xylocaine. DESCRIPTION OF PROCEDURE: With the patient at bedside in ICU, right groin was clipped of hair, prepared with ChloraPrep, and draped in routine fashion. Local anesthetic with 1% Xylocaine was infiltrated in the skin and subcutaneous tissue. Trocar catheter cannulated the femoral vein, J-wire threaded, trocar catheter was removed. Skin site was enlarged sharply. Small and medium size dilators were placed over the J-wire in the femoral vein and removed. Trialysis catheter of distal port was placed with J-wire into the femoral vein. J-wire was removed. Each port filled with blood, flushed with saline solution, heparinized solution, and purple IV port connected to pressure line. Catheter was secured with 3-0 nylon suture. Sterile dressing was applied. Job ID: [id number]
--- NOTE | 2020-02-18 08:13 | PRG ---
DATE OF SERVICE: 02/18/2020 Mr. Brush is acid-base disorder resolved with dialysis. His bicarb is 26 this morning, BUN is 58, creatinine is 8.4, potassium is 4.7. COVID screen was ordered last night, so he is in isolation. Met with his aunt. He has not taken insulin for 3 days, had not been dialysis for over 3 days and has not been eating for over 3 days. She tells me that the family understands that his time on earth is limited based on his chronic and recurrent behavior. I doubt he will be COVID positive. Job ID: [id number]
[2020-02-18 08:19] LABS: #Eosinphils 0.1 thou/uL (0.0-0.7); #Lymphocytes 1.2 thou/uL (1.20-3.40); #Neutrophils 5.6 thou/uL (1.40-6.50); %Basophils 0.6 % (0.0-1.0); %Eosinophils 1.1 % (0.0-10.0); %Monocytes 12.1 % (0.0-10.0); %Neutrophils 71.2 % (42.0-75.0); Hemoglobin 8.6 g/dL (14.0-18.0); Mean Corpuscular HGB CONC 32.3 g/dL (32.0-36.0); Mean Corpuscular Hemoglobin 29.3 pg (27.0-31.0); Mean Corpuscular Volume 90.8 fL (78.0-98.0); Mean Platelet Volume 11.9 fL (7.4-10.4); Platelet Count 93 thou/uL (130-400); RBC Distribution Width 16.8 % (11.5-14.5); Red Blood Cell (RBC) Count 2.92 mill/uL (4.70-6.10); White Blood Cell (WBC) Count 7.9 thou/uL (4.8-10.8)
[2020-02-18] MEDS: Heparin 5,000 UNITS/ML VIAL SC SCH ×3 (08:23→20:51)
[2020-02-18 08:27] LABS: Anion Gap 17 mmol/L (10-20); BUN (Urea Nitrogen) 59 mg/dL (8.9-20.6); Calc. Creatinine Clearance 12 mL/min (70-130); Calcium 8.2 mg/dL (7.8-10.44); Carbon Dioxide 27 mmol/L (22-29); Chloride 101 mmol/L (98-107); Estimated GFR-MDRD 9; Glucose 64 mg/dL (70-105); Potassium 4.7 mmol/L (3.5-5.1); Sodium 140 mmol/L (136-145)
--- NOTE | 2020-02-18 09:13 | PRG ---
DATE OF SERVICE: SUBJECTIVE: Patient was seen and examined at bedside and overnight events noted. Patient denies any shortness of breath or chest pain or palpitation. No history of nausea or vomiting or diarrhea or fever or chills or cramps. OBJECTIVE: GENERAL: This is a well developed male in no apparent distress. VITAL SIGNS: Temperature 97.3. Heart rate 83. Respiratory rate 16. Blood pressure 112/59. HEENT: Atraumatic, normocephalic. Oral mucosa is moist NECK: Supple. CARDIOVASCULAR: S1, S2 heard. Rate and rhythm regular. RESPIRATORY: Clear to auscultation. GASTROINTESTINAL: Abdomen is soft. MUSCULOSKELETAL: No tenderness. No edema. DERMATOLOGIC: No skin rash. NEUROLOGIC: Alert and awake and oriented X3. No focal neurologic deficits. Moving all the extremities. PSYCHIATRIC: Mood and affect normal. LABORATORY DATA: Potassium 4.7, BUN is 59, and creatinine is 8.3. ASSESSMENT AND PLAN: 1. End-stage renal disease. Continue dialysis. 2. Severe hyperkalemia and severe acidosis, uremic encephalopathy. 3. Metabolic acidosis. PLAN: Continue dialysis as tolerated Monday, Monday, Monday. Job ID: [id number]
[2020-02-18 10:04] LABS: SARS-CoV-2 MS2 Positive; SARS-CoV-2 N Gene Negative; SARS-CoV-2 S Gene Negative; SARS-CoV-2 orf1ab Negative
--- NOTE | 2020-02-18 12:05 | RAD ---
RADIOGRAPH CHEST 1 VIEW: DATE: 02/18/2020 TIME: 11:54 AM HISTORY: 39-year-old male follow-up pleural effusion COMPARISON: 02/17/2020 FINDINGS: Large right pleural effusion. Dense opacification of lower two thirds of right lung remains. The righ t perihilar upper lobe opacification has worsened. Left lung remains clear. Left lateral costophrenic angle remains sharp. Probably no cardiomegaly. Multiple left-sided vascular stents again noted. No pneumothorax. IMPRESSION: 1. Large right pleural effusion. 2. Worsening of aeration of right perihilar region of the right upper lobe.
[2020-02-18] MEDS ORDERED: Iopamidol 300 61% 100 ML VIAL FS ONE (12:07)
[2020-02-18 12:20] VITALS: BMI 24.5
--- NOTE | 2020-02-18 14:24 | SPC ---
Right upper extremity dialysis fistulogram Sonographic guided vascular access HISTORY: Renal failure. Suboptimal functioning dialysis fistula FINDINGS: After explaining the procedure and answering all questions, the right upper extremity was p repped and draped in usual sterile fashion. Sterile technique, buffered local anesthesia, sonographic guidance, and a 22-gauge needle were used t o carefully access the most peripheral portion of the right upper arm cephalic dialysis fistula. A 4 Algerian micropuncture dilator/sheath was placed for serial imaging. Cephalic fistula and venous outflow are widely patent. Superior vena cava is patent. Metallic stent a t the central portion of the cephalic vein at the arch. Arterial anastomosis is widely patent. Focal area of narrowing is noted at the access site, due to th e iatrogenic compression. Catheter was removed and hemostasis obtained using direct pressure. Patient tolerated procedure well and was returned in unchanged condition. Fluoroscopy time 0.6 minutes. IMPRESSION : Good flow and function of the right upper extremity dialysis fistula. No evidence of complication.
[2020-02-18] MEDS ORDERED: Insulin Glargine 12 UNITS in Pre-Filled Syringe 1 EACH SC SCH (21:00)
[2020-02-18] MEDS ORDERED: Cefepime 0.5 GM, Admixture Fee 1 EACH in Sodium Chloride 0.9% 100 ML IVPB SCH (21:00)
[2020-02-19 07:04] LABS: #Eosinphils 0.1 thou/uL (0.0-0.7); #Lymphocytes 1.2 thou/uL (1.20-3.40); #Monocytes 0.8 thou/uL (0.11-0.59); #Neutrophils 4.7 thou/uL (1.40-6.50); %Basophils 0.4 % (0.0-1.0); %Eosinophils 1.4 % (0.0-10.0); %Lymphocytes 17.7 % (21.0-51.0); %Monocytes 10.9 % (0.0-10.0); %Neutrophils 69.5 % (42.0-75.0); Hemoglobin 9.2 g/dL (14.0-18.0); Mean Corpuscular HGB CONC 32.5 g/dL (32.0-36.0); Mean Corpuscular Hemoglobin 29.7 pg (27.0-31.0); Mean Corpuscular Volume 91.2 fL (78.0-98.0); Mean Platelet Volume 8.9 fL (7.4-10.4); Platelet Count 85 thou/uL (130-400); RBC Distribution Width 16.9 % (11.5-14.5); White Blood Cell (WBC) Count 6.8 thou/uL (4.8-10.8)
[2020-02-19 07:20] LABS: Anion Gap 22 mmol/L (10-20); BUN (Urea Nitrogen) 67 mg/dL (8.9-20.6); Calc. Creatinine Clearance 10 mL/min (70-130); Calcium 8.5 mg/dL (7.8-10.44); Carbon Dioxide 22 mmol/L (22-29); Chloride 100 mmol/L (98-107); Estimated GFR-MDRD 7; Glucose 269 mg/dL (70-105); Potassium 5.4 mmol/L (3.5-5.1); Sodium 139 mmol/L (136-145)
[2020-02-19] MEDS: Heparin 5,000 UNITS/ML VIAL SC SCH (08:07)
--- NOTE | 2020-02-19 08:50 | PDOC.FM ---
- Subjective Subjective: pt doing well. no complaints discussed goals of care with pt the possibility of hospice. Pt states he still wants aggressive treatment of all medical problems. States he will try to not miss dialysis appts in the future. - Objective Vital Signs & Weight: Vital Signs (12 hours) Temp Pulse Resp BP Pulse Ox 02/19/20 08:22 98.4 F 86 18 123/70 97 02/19/20 07:18 95 02/19/20 05:17 95 02/19/20 04:42 97.9 F 85 20 158/83 H 95 02/19/20 00:00 77 20 163/82 H 94 L Weight Admit Weight 70.76 kg Weight 71 kg Most Recent Monitor Data Heart Rate from ECG 81 NIBP 120/64 NIBP BP-Mean 82 Respiration from ECG 15 SpO2 100 I&O: 02/18/20 02/19/20 02/20/20 06:59 06:59 06:59 Intake Total 1108.5 830 Output Total 0 Balance 1108.5 830 Result Diagrams: 02/19/20 06:30 02/19/20 06:30 Phys Exam - Physical Examination Constitutional: NAD HEENT: moist MMs, sclera anicteric Neck: supple, full ROM Respiratory: no wheezing, clear to auscultation bilateral Cardiovascular: RRR, no significant murmur Gastrointestinal: soft, non-tender Musculoskeletal: no edema, pulses present Neurological: normal sensation, moves all 4 limbs Psychiatric: normal affect, A&O x 3 Skin: no rash, normal turgor Dx/Plan (1) Acute respiratory failure with hypoxia Code(s): J96.01 - ACUTE RESPIRATORY FAILURE WITH HYPOXIA Status: Acute (2) Elevated brain natriuretic peptide (BNP) level Code(s): R79.89 - OTHER SPECIFIED ABNORMAL FINDINGS OF BLOOD CHEMISTRY Status : Acute (3) Hyperkalemia Code(s): E87.5 - HYPERKALEMIA Status: Acute (4) Increased anion gap metabolic acidosis Code(s): E87.2 - ACIDOSIS Status: Acute (5) Thrombocytopenia Code(s): D69.6 - THROMBOCYTOPENIA, UNSPECIFIED Status: Acute (6) Depression Code(s): F32.9 - MAJOR DEPRESSIVE DISORDER, SINGLE EPISODE, UNSPECIFIED Status : Chronic Qualifiers: Depression Type: major depressive disorder Active/Remission status: currently active Psychotic features: without psychotic features (7) Diabetes mellitus type 1 with complications Code(s): E10.8 - TYPE 1 DIABETES MELLITUS WITH UNSPECIFIED COMPLICATIONS Status: Chronic (8) Drug abuse, phencyclidine Code(s): F16.10 - HALLUCINOGEN ABUSE, UNCOMPLICATED Status: Chronic (9) ESRD (end stage renal disease) on dialysis Code(s): N18.6 - END STAGE RENAL DISEASE; Z99.2 - DEPENDENCE ON RENAL DIALYSIS Status: Chronic (10) Hypertension Code(s): I10 - ESSENTIAL (PRIMARY) HYPERTENSION Status: Chronic Qualifiers: Hypertension type: essential hypertension Qualified Code(s): I10 - Essential (primary) hypertension (11) Non-compliance with renal dialysis Code(s): Z91.15 - PATIENT'S NONCOMPLIANCE WITH RENAL DIALYSIS Status: Chronic (12) Polysubstance abuse Code(s): F19.10 - OTHER PSYCHOACTIVE SUBSTANCE ABUSE, UNCOMPLICATED Status: Chronic - Plan Plan: Pt is a 29M PMH significant for ESRD on HD, DMI (poorly controlled), MDD, HTN, HLD, Hx CVA x 2, polysubstance abuse who presents for: Acute hypoxic respiratory failure A- resolved, pt on RA. Likely was 2/2 volume overload P- continue normal dialysis regimen DKA 2/2 non compliance to insulin, type 1 diabetes A- resolved. Pt now back on basal insulin. had 12u HS yesterday and required 4 additional u fast acting SSI. P- will increase glargine to 15u HS Hyperkalemia A- stable, asymptomatic P- dialysis Sepsis 2/2 CAP vs. SIRS positive 2/2 DKA and questionable consolidation on CXR A- CXR shows underlying consolidation however pt not showing over s/s of PNA. He required pressors for 1 h early on admission. Currently asymptomatic P- continue vanc and cefepime, will consider DCing after BCx result. ESRD on HD -dialysis per above Thrombocytopenia -2/2 ESRD, stable from previous admissions HTN -continue home meds, will restart when home meds reconciled Depression -continue home meds Hx of Seizure D/O -continue home meds Hx of Polysubstance abuse -MD aware, advise cessation MDD -restart home meds Chronic anemia -at baseline, likely from ESRD, will continue to monitor Code: Full Addendum - Attending - Attending Attestation Date/Time: 02/19/20 6319 I personally evaluated the patient and discussed the management with Dr. Lazar. I agree with the History, Examination, Assessment and Plan documented above with any addition or exceptions noted below. Patient stable. Counselled on med compliance. Stable for discharge.
--- NOTE | 2020-02-19 11:13 | PRG ---
DATE OF SERVICE: 02/19/2020 SUBJECTIVE: Patient was seen and examined at bedside and overnight events noted. Patient denies any shortness of breath or chest pain or palpitation. No history of nausea or vomiting or diarrhea or fever or chills or cramps. OBJECTIVE: GENERAL: This is a well-built male, in no apparent distress. VITAL SIGNS: Temperature 98.4. Heart rate 86. Respiratory rate 18. Blood pressure 123/70. HEENT: Atraumatic, normocephalic. Oral mucosa is moist. NECK: Supple. CARDIOVASCULAR: S1, S2 heard. Rate and rhythm regular. RESPIRATORY: Clear to auscultation. GASTROINTESTINAL: Abdomen is soft. MUSCULOSKELETAL: No tenderness. No edema. DERMATOLOGIC: No skin rash. NEUROLOGIC: Alert and awake and oriented x3. No focal neurologic deficits. Moving all the extremities. PSYCHIATRIC: Mood and affect normal. LABORATORY DATA: Potassium is 5.4, BUN is 67, and creatinine is 9.5. ASSESSMENT AND PLAN: 1. End-stage renal disease. Continue on dialysis as tolerated. 2. Hyperkalemia. 3. Edema. 4. Hypertension. 5. Noncompliance consult. Dialysis access issues. Follow with Dr. Isabel. Job ID: [id number]
--- NOTE | 2020-02-19 12:01 | PRG ---
DATE OF SERVICE: 02/19/2020 Mr. Brush underwent fistulogram yesterday. His cephalic vein fistula right upper arm is patent with a patent stent in his cephalic arch. This is not a durable solution. He will have recurrent problems and eventually this will occlude. I have recommended surgical revision with changing the outflow from the subclavian vein to the axillary vein. The patient is agreeable, that will be done as an outpatient on a nondialysis day on Monday in the next few weeks, probably second week in February. The patient can be discharged home after dialysis today and he followup for his outpatient surgery. He has given me his cell phone #[phone], but requested that we contact his mother, whose number is listed as [phone] to arrange outpatient surgery on Monday. He can be discharged home after dialysis today. His fistula is functioning right arm. We will plan removal of his right groin catheter. Job ID: [id number]
[2020-02-19 12:15] LABS: Vancomycin, Random 5.4 ug/mL (See Comment)
--- NOTE | 2020-02-19 14:24 | EKG ---
Test Reason : AMS Blood Pressure : / mmHG Vent. Rate : 077 BPM Atrial Rate : 077 BPM P-R Int : 160 ms QRS Dur : 102 ms QT Int : 412 ms P-R-T Axes : 078 102 033 degrees QTc Int : 466 ms Normal sinus rhythm Rightward axis Septal infarct , age undetermined Abnormal ECG Confirmed by MERLIN DUMONT, WICHO ([id number]), newspaper or periodical editor VINI DE LA CRUZ ([id number]) on 02/19/2020 2:23:33 PM Referred By: Confirmed By:WICHO BOYER MD
[2020-02-19 16:09] VITALS: BP 167/82; TEMP 97.5
--- NOTE | 2020-02-19 21:34 | DIS ---
DATE OF ADMISSION: 02/17/2020 DATE OF DISCHARGE: 02/19/2020 RESIDENT: Tj Lazar MD I saw the patient for a total of 2 days. ADMITTING ATTENDING: Efraín Mckinley MD DISCHARGE ATTENDING: Efraín Mckinley MD CONSULTS: 1. Rafa Hurd MD. 2. Segundo Moreno MD. 3. Milad Isabel MD. PROCEDURES: 1. On 02/17/2020, chest x-ray, impression; interval worsening of [id number] right pleural effusion and underlying consolidation of the right lower lobe and right middle lobe. 2. AV shunt angiogram on 02/18/2020. 3. Chest x-ray on 02/18/2020, impression; large right pleural effusion, worsening of aeration of the right perihilar region of the right upper lobe. DISCHARGE MEDICATIONS: 1. Renvela 2400 mg t.i.d. with meals. 2. Sensipar 60 mg p.o. daily. 3. Hydralazine 25 mg p.o. t.i.d. 4. Amlodipine 10 mg p.o. daily. 5. Sertraline 25 mg p.o. daily. 6. Tylenol. 7. Humalog 3 units subcutaneous t.i.d. with meals. 8. Keppra 500 mg p.o. b.i.d. 9. Lantus glargine 15 units subcutaneous at bedtime. 10. Albumin 25%, 25 g in 100 mL bottle to be given p.r.n. with dialysis. 11. Lomotil 2 tablets p.o. t.i.d. p.r.n. for diarrhea. DISCONTINUED MEDICATIONS: Insulin glargine 12 units subcutaneous q.a.m. PRIMARY DIAGNOSES: Diabetic ketoacidosis and hypoxic respiratory failure secondary to noncompliance to end-stage renal disease. SECONDARY DIAGNOSES: Hyperkalemia, Systemic inflammatory response syndrome positive secondary to diabetic ketoacidosis, right pleural effusion and lobar consolidation seen on chest x-ray, end-stage renal disease, on hemodialysis, thrombocytopenia, hypertension, depression, history of seizures, polysubstance abuse, major depressive disorder, chronic anemia. HISTORY OF PRESENT ILLNESS/HOSPITAL COURSE: This is a 39-year-old male with a history of end-stage renal disease, on hemodialysis, history of chronic noncompliance to hemodialysis, who presented for diabetic ketoacidosis and hypoxic respiratory failure secondary to dialysis noncompliance. The patient was admitted and treated as such with insulin drip for diabetic ketoacidosis. The patient was also dialyzed to take off fluid for respiratory status. Of note, on admission, the patient had chest x-ray, which was concerning for pneumonia and so was treated for such. The patient had one hypotensive event during dialysis and it was thought that he may have sepsis and septic shock and so the patient was brought back to the unit, started on pressors and blood cultures were drawn. Antibiotics were started. The patient was able to wean pressors in less than an hour seemingly indicating that it had not been shock secondary to sepsis, but potentially secondary to dialysis versus an outlier blood pressure reading. However, the patient was kept on antibiotics until blood cultures resulted negative, at which point, they were stopped and the patient was discharged home because by this time his diabetic ketoacidosis had been resolved. He had been stable on home medications at a slightly increased regimen and respiratory status has also improved with dialysis. Of note, goals of care conversation was once again had with this patient considering his chronic noncompliance with end-stage renal disease to discuss if he would want hospice care as he seemed to really did not have motivation to go to dialysis. At this time, the patient expressed a strong desire to live, had been tearful and stated he had further plans to go to dialysis any time without missing any. He did say that the reason he had been missing was because his diarrhea was uncontrolled. He has tried Imodium in the past, but he still has diarrhea and is unable to sit for long periods of time because of this, and so I explained risks, benefits of more aggressive control of his diarrhea versus the risks of not attending dialysis. The patient was discharged with a prescription for Lomotil in this regard. The patient was encouraged to follow up with PCP, Mela Hardwick or [facility] and to call if there are any further barriers in going to dialysis because this will keep him out of the hospital. DISPOSITION: Stable. DISCHARGE INSTRUCTIONS: Location: Home. Activity: As tolerated. Diet: Renal diet. Followup: Follow up with [facility], PCP, Mela Hardwick in 7 days. Follow up with Dr. Isabel in 7 days. Follow up to dialysis as scheduled. Job ID: [id number]
--- NOTE | 2020-02-20 08:39 | PQF ---
JACQUIE KAMARA JASON MD [id number] CLINICAL DOCUMENTATION CLARIFICATION FORM: POST DISCHARGE Addendum to original discharge summary date: ____ Late entry note date: __ DATE:02/20/2020 ATTN:Efraín Cardenas Please exercise your independent, professional judgment in responding to the clarification form. Clinical indicators are provided on the bottom of this form for your review Please check appropriate box(s) to clarify if the following diagnosis has been ruled in or ruled out: Sepsis [ ] Ruled in diagnosis [ ] Continue to treat [ ] Resolved [ X ] Ruled out diagnosis [ ] Cannot rule out diagnosis [ ] Other diagnosis [ ] Unable to determine In addition, please specify: Present on Admission (POA): [ ] Yes [ ] No [ X ] Unable to determine RULED OUT For continuity of documentation, please document condition throughout progress notes and discharge summary. Thank You. CLINICAL INDICATORS - SIGNS / SYMPTOMS / LABS Laboratory 02/16 WBC 6.0, Plt count 113, Neutrophils 63.5 Blood culture 02/16 Negative for nitin at 48 hours Vital signs 02/16 BP 96/44, Pulse 78, Resp 18 Chest Xray 02/16 Impression shows worsening chronic pleural effusion H&P p4 02/16 Acute respiratory failure H&P p4 02/16 Increased anion gap acidosis H&P p6 02/16 Chest consolidation Cxr shows underlying consolidation however pt not showing over s/s PNA Hospitalist PN p4 Sepsis 2/2 CAP vs SIRS positive 2/2 DKA and questionable consolidation on CXR RISK FACTORS H&P p1 02/16 ESRD on dialysis H&P p2 02/16 HTN H&P p5 02/16 DKA type 1 DM Hospitalist PN p4 - Hyperkalemia Hospitalist PN p4 - CAP TREATMENTS DEC 24 IV Cefepime 1gm DEC 24 Norepinephrine 8gm DEC 24 Ventolin 2.5 mg DEC 24 IVF NS 1L Blood culture 02/16 Chest X-ray 02/16 Respiratory panel 02/16 Oxygen 2L (This form is maintained as a part of the permanent medical record) 2014 [employer]. All Rights Reserved [email or web address]
== END 2020-02-19 16:39 | disposition home or self-care (01) | DRG 637 ==
LOC: ERS 12:37 → CCU 16:47 → T4-B 02-18 14:27
PROVIDERS: ADMIT Specialist; ATTEND Specialist
PROC: 5A1D70Z Performance of Urinary Filtration, Intermittent, Less than 6 Hours Per Day (ICD-10-PCS; principal; 2020-02-17)
PROC: 3E033XZ Introduction of Vasopressor into Peripheral Vein, Percutaneous Approach (ICD-10-PCS; 2020-02-17)
PROC: 8E0ZXY6 Isolation (ICD-10-PCS; 2020-02-17)
PROC: 06HY33Z Insertion of Infusion Device into Lower Vein, Percutaneous Approach (ICD-10-PCS; 2020-02-17)
PROC: B51MZZA Fluoroscopy of Right Upper Extremity Veins, Guidance (ICD-10-PCS; 2020-02-18)
DX: E10.10 Type 1 diabetes mellitus with ketoacidosis without coma (principal); J96.01 Acute respiratory failure with hypoxia; N18.6 End stage renal disease; J18.9 Pneumonia, unspecified organism; J90 Pleural effusion, not elsewhere classified; G93.49 Other encephalopathy; R65.10 Systemic inflammatory response syndrome (SIRS) of non-infectious origin without acute organ dysfunction; I12.0 Hypertensive chronic kidney disease with stage 5 chronic kidney disease or end stage renal disease; Z20.828 Contact with and (suspected) exposure to other viral communicable diseases; F32.9 Major depressive disorder, single episode, unspecified; F17.200 Nicotine dependence, unspecified, uncomplicated; F12.10 Cannabis abuse, uncomplicated; R79.89 Other specified abnormal findings of blood chemistry; E87.5 Hyperkalemia; D69.6 Thrombocytopenia, unspecified; F15.10 Other stimulant abuse, uncomplicated; D63.1 Anemia in chronic kidney disease; E10.51 Type 1 diabetes mellitus with diabetic peripheral angiopathy without gangrene; G40.909 Epilepsy, unspecified, not intractable, without status epilepticus; Z99.2 Dependence on renal dialysis; Z88.0 Allergy status to penicillin; Z79.899 Other long term (current) drug therapy; Z79.4 Long term (current) use of insulin; Z86.73 Personal history of transient ischemic attack (TIA), and cerebral infarction without residual deficits; Z89.511 Acquired absence of right leg below knee; Z91.15 Patient's noncompliance with renal dialysis; Z91.14 Patient's other noncompliance with medication regimen; Z91.19 Patient's noncompliance with other medical treatment and regimen
CPT/HCPCS: 36415; 36416; 36901; 71045; 80048; 80053; 80202; 82010; 82550; 82805; 83690; 83880; 84145; 84484; 85025; 87040; 87635; 90935; 93005; G0257; J0692; J1642; J1644; J1815; J2405; J3370; J3490; J7611; Q9967; U0002

== ENCOUNTER 2020-02-27 06:06 | Outpatient (CLI) | payer MEDICARE, MEDICAID, OTHER ==
[2020-03-03 18:03] LABS: SARS-CoV-2 MS2 Positive; SARS-CoV-2 N Gene Negative; SARS-CoV-2 S Gene Negative; SARS-CoV-2 orf1ab Negative
== END 2020-02-27 06:07 | disposition home or self-care (01) ==
LOC: LABBT 06:06
PROVIDERS: ATTEND Specialist
DX: Z01.812 Encounter for preprocedural laboratory examination (principal); Z11.59 Encounter for screening for other viral diseases; N18.6 End stage renal disease; T82.590D Other mechanical complication of surgically created arteriovenous fistula, subsequent encounter
CPT/HCPCS: 87635; U0003

== ENCOUNTER 2020-03-04 06:12 | Day surgery (SDC) | payer MEDICARE, MEDICAID ==
[2020-02-27 16:39] VITALS: BMI 26.4
[2020-03-04] MEDS ORDERED: Propofol 1,000 MG/100 ML VIAL IV ONE (07:21)
[2020-03-04] MEDS ORDERED: Fentanyl 100 MCG/2 ML VIAL ONE (07:21)
[2020-03-04] MEDS ORDERED: Acetaminophen 500 MG TAB ONE (07:56)
[2020-03-04 08:03] LABS: #Eosinphils 0.1 thou/uL (0.0-0.7); #Lymphocytes 1.6 thou/uL (1.20-3.40); #Monocytes 0.9 thou/uL (0.11-0.59); #Neutrophils 5.4 thou/uL (1.40-6.50); %Basophils 0.5 % (0.0-1.0); %Eosinophils 1.4 % (0.0-10.0); %Monocytes 11.2 % (0.0-10.0); %Neutrophils 66.8 % (42.0-75.0); Hemoglobin 10.7 g/dL (14.0-18.0); Mean Corpuscular HGB CONC 31.5 g/dL (32.0-36.0); Mean Corpuscular Hemoglobin 29.5 pg (27.0-31.0); Mean Corpuscular Volume 93.7 fL (78.0-98.0); Platelet Count 139 thou/uL (130-400); RBC Distribution Width 17.7 % (11.5-14.5); Red Blood Cell (RBC) Count 3.64 mill/uL (4.70-6.10); White Blood Cell (WBC) Count 8.1 thou/uL (4.8-10.8)
[2020-03-04] MEDS ORDERED: Bupivacaine 0.25% HCL 30 ML VIAL ONE (08:24)
[2020-03-04] MEDS ORDERED: Protamine Sulfate 50 MG/5 ML VIAL ONE (08:24)
[2020-03-04] MEDS ORDERED: Heparin 5,000 UNITS/ML VIAL ONE (08:24)
[2020-03-04] MEDS ORDERED: Lidocaine 1% w/Epinephrine 1:100K 20 ML VIAL ONE (08:24)
[2020-03-04 08:30] LABS: Anion Gap 24 mmol/L (10-20); BUN (Urea Nitrogen) 82 mg/dL (8.9-20.6); Calc. Creatinine Clearance 13 mL/min (70-130); Calcium 9.4 mg/dL (7.8-10.44); Carbon Dioxide 23 mmol/L (22-29); Chloride 93 mmol/L (98-107); Estimated GFR-MDRD 7; Glucose 434 mg/dL (70-105); Potassium 5.5 mmol/L (3.5-5.1); Sodium 134 mmol/L (136-145)
[2020-03-04] MEDS ORDERED: Clindamycin/D5W 600 mg/50 ml Premix Bag ONE (08:30)
[2020-03-04] MEDS ORDERED: Insulin Regular 300 UNITS/3 ML VIAL ONE (08:35)
[2020-03-04] MEDS ORDERED: Ondansetron PF 4 MG/2 ML Vial ONE (11:23)
[2020-03-04] MEDS ORDERED: PHENYLEPHRINE-NS 100 MCG/ML 10 ML SYRINGE ONE (11:23)
[2020-03-04] MEDS ORDERED: PROPOFOL 200 MG/20 ML VIAL ONE (11:23)
[2020-03-04] MEDS ORDERED: Lidocaine 1% PF 5 ML VIAL ONE (11:23)
[2020-03-04] MEDS ORDERED: Rocuronium Bromide 10 MG/ML (10ML VIAL) ONE (11:23)
[2020-03-04] MEDS ORDERED: SUGAMMADEX SODIUM 200 MG/2 ML VIAL ONE ×2 (12:13→13:21)
[2020-03-04] MEDS ORDERED: Dextrose 50% Abboject 50 ML SYRINGE ONE ×2 (13:46→16:14)
[2020-03-04 15:55] LABS: Hemoglobin 9.2 g/dL (14.0-18.0)
--- NOTE | 2020-03-04 16:22 | RAD ---
SINGLE VIEW OF THE CHEST: 03/04/20 COMPARISON: 02/18/20. HISTORY: Postoperative x-ray. Shortness of breath. FINDINGS: Single view of the chest shows a normal sized cardiomediastinal silhouette. There is a moderate right pleural effusion with adjacent atelectasis versus infiltrate. Stents are seen in the left arm. IMPRESSION: Stable moderate right pleural effusion. POS: [facility]
--- NOTE | 2020-03-04 19:10 | OP ---
DATE OF PROCEDURE: 03/04/2020 PREOPERATIVE DIAGNOSES: 1. End-stage renal disease. 2. Dysfunctional right arm fistula with stenting of the cephalic arch, unusually long stenting towards the shoulder. POSTOPERATIVE DIAGNOSES: 1. End-stage renal disease. 2. Dysfunctional right arm fistula with stenting of the cephalic arch, unusually long stenting towards the shoulder. PROCEDURE PERFORMED: Revision of the right upper arm dialysis fistula without thrombectomy, in essence cephalic vein transposition from outflow subclavian vein to the axillary vein, which was of excellent caliber and condition. ANESTHESIA: General, local with 0.5% Marcaine 30 mL, mixed with 1% Xylocaine with epinephrine 20 mL, total volume used. DESCRIPTION OF PROCEDURE: The patient was taken to the operating room where under general anesthesia, neck and chest and right upper extremity were prepared with ChloraPrep and draped in routine fashion. Incision was made over the cephalic vein in the proximal arm, mobilized, dissecting it free from the patella to pectoral groove, surrounding with silastic vessel loop. It was dissected up free towards the shoulder, where a stent extended unusually long distance. This junction was identified. Incision was made in the right axilla, dissecting the axillary vein, noting to be very large with excellent caliber, controlled proximally and distally with silastic vessel loops. The small branch clipped. The patient was given 6000 units of heparin intravenously and a tunnel created from the upper arm to the axilla using a blunt dissection using Luci clamp. The cephalic vein at the level of the stent was transected and stump ligated on the shoulder side with 2-0 silk suture. Vein was then opened and was noted to have good arterial inflow. This was then placed with a tunnel, rechecked, having good arterial inflow, marked for proper orientation to maintain. An atraumatic bulldog vascular clamp placed to control this, axillary vein controlled proximally and distally with silastic vessel loops. A longitudinal venotomy made sharply and elongated with the Ness scissors and stay suture of 6-0 Prolene was used to keep it open. Vein accordingly spatulated for a 3 cm anastomosis using continuous suture of 6-0 Prolene. After completing the anastomosis and arterial inflow was released, there was good distention and flow. Good hemostasis noted. The patient was given 25 mg of protamine. The vein inflow in the arm was inspected and it was without kinks or torsion. Good hemostasis was noted. Abdulkadir placed in the vein harvest bed in the axilla. Subcutaneous tissue was approximated with 3-0 Monocryl on both wounds, skin with continuous suture of 4-0 Monocryl. Local anesthetic was infiltrated in the skin and subcutaneous tissue about the operative site. The patient tolerated the procedure well. Job ID: [id number]
== END 2020-03-04 18:45 | disposition home or self-care (01) ==
LOC: SDC 06:12
PROVIDERS: ATTEND Specialist
PROC: 03WY33Z Revision of Infusion Device in Upper Artery, Percutaneous Approach (ICD-10-PCS; principal; 2020-03-04)
DX: T82.520A Displacement of surgically created arteriovenous fistula, initial encounter (principal); I13.2 Hypertensive heart and chronic kidney disease with heart failure and with stage 5 chronic kidney disease, or end stage renal disease; E11.22 Type 2 diabetes mellitus with diabetic chronic kidney disease; N18.6 End stage renal disease; I50.9 Heart failure, unspecified; Z79.82 Long term (current) use of aspirin; Z79.899 Other long term (current) drug therapy; Z88.0 Allergy status to penicillin
CPT/HCPCS: 36832; 71045; 80048; 82962; 85014; 85018; 85025; 86850; 86900; 86901; J1610; 36415; 36416; J1644; J1815; J2001; J2405; J2704; J2720; J3010; J3490; S0020

== ENCOUNTER 2020-03-22 08:03 | Inpatient (IN) | payer MEDICARE, MEDICAID ==
[2020-03-22] MEDS ORDERED: Insulin Regular 300 UNITS/3 ML VIAL ONE (08:38)
[2020-03-22 09:28] LABS: #Basophils 0.1 thou/uL (0.0-0.2); #Lymphocytes 0.7 thou/uL (1.20-3.40); #Monocytes 0.5 thou/uL (0.11-0.59); %Basophils 1.7 % (0.0-1.0); %Eosinophils 0.2 % (0.0-10.0); %Lymphocytes 8.6 % (21.0-51.0); %Monocytes 5.5 % (0.0-10.0); Hemoglobin 9.2 g/dL (14.0-18.0); Mean Corpuscular HGB CONC 31.3 g/dL (32.0-36.0); Mean Corpuscular Hemoglobin 29.9 pg (27.0-31.0); Mean Corpuscular Volume 95.4 fL (78.0-98.0); Mean Platelet Volume 10.6 fL (7.4-10.4); Platelet Count 237 thou/uL (130-400); RBC Distribution Width 16.9 % (11.5-14.5); Red Blood Cell (RBC) Count 3.08 mill/uL (4.70-6.10); White Blood Cell (WBC) Count 8.4 thou/uL (4.8-10.8)
[2020-03-22 09:30] LABS: Base Excess-Venous -11.5 mmol/L (-2.0 to 3.0); Bicarbonate (HCO3v) 14.8 mmol/L (22.0-28.0); CO2 Tension (PvCO2) 33.8 mmHg (40.0-50.0); Calcium, Ionized 0.88 mmol/L (See Comments:); Chloride 103 mmol/L (98-107); Hemoglobin - Calc 9.9 g/dL (14.0-18.0); Potassium 4.9 mmol/L (3.5-5.1); Sodium 127 mmol/L (138-145); T. Carbon Dioxide 15.8 mmol/L (22.0-28.0); vO2 Saturation-calc 95.7 % (60.0-85.0)
[2020-03-22 09:49] LABS: ALT (SGPT) 11 U/L (8-55); AST (SGOT) 10 U/L (5-34); Albumin 3.5 g/dL (3.5-5.0); Alkaline Phosphatase 125 U/L (40-110); Anion Gap 32 mmol/L (10-20); BUN (Urea Nitrogen) 81 mg/dL (8.9-20.6); Bilirubin, Total 0.4 mg/dL (0.2-1.2); Calc. Creatinine Clearance 0 mL/min (70-130); Calcium 8.3 mg/dL (7.8-10.44); Carbon Dioxide 13 mmol/L (22-29); Chloride 92 mmol/L (98-107); Estimated GFR-MDRD 7; Globulin 3.6 g/dL (2.4-3.5); Glucose 475 mg/dL (70-105); Magnesium 2.7 mg/dL (1.6-2.6); Potassium 5.1 mmol/L (3.5-5.1); Protein, Total 7.1 g/dL (6.0-8.3); Sodium 132 mmol/L (136-145)
[2020-03-22 09:50] LABS: Phosphorus 9.9 mg/dL (2.3-4.7)
[2020-03-22 10:59] LABS: Analyzer IN Cardio ER; Base Excess (BEa) -11.9 mEq/L (-2.0 to +3.0); CO2 Tension 53.1 mmHg (35.0-45.0); Calcium, Ionized 1.08 mmol/L (1.12-1.30); Carboxyhemoglobin (COHb) 0.8 gm% (0.0-3.0); Hemoglobin (Hb) 9.6 g/dL (14.0-18.0); O2 Tension (PaO2), arterial 77.4 mmHg (80.0-100.0)
[2020-03-22 11:03] LABS: ALV-art Gradient 55.865 (0-20); pH, Arterial 7.12 (7.35-7.45)
[2020-03-22 11:24] LABS: Actual Bicarbonate (HCO3v) 18 mEq/L (22-28); Base Excess -10.7 mEq/L (-2.0 to +3.0); Calcium, Ionized 1.08 mmol/L (1.16-1.32); Chloride (ABG LAB) 95 mmol/L (98-106); Hemoglobin (Hb) 9.3 g/dL (13.2-17.3); Potassium - ABG Lab 4.99 mmol/L (3.70-5.30); Sodium 134.1 mmol/L (133-146)
[2020-03-22 11:25] LABS: pH (venous) 7.12 (7.32-7.43)
[2020-03-22 11:26] LABS: Analyzer IN Cardio ER
--- NOTE | 2020-03-22 11:29 | CT ---
CT BRAIN WITHOUT CONTRAST: Date: 03/22/2020 HISTORY: Altered mental status. Diabetes and end-stage renal disease. COMPARISON: 03/10/2020. FINDINGS: No evidence of acute infarct, hemorrhage, midline shift, or abnormal extra-axial fluid collections ar e seen. The ventricular size is appropriate and the basilar cisterns are patent. The bony calvarium i s intact. The visualized paranasal sinuses and mastoid air cells are well aerated. IMPRESSION: No CT evidence of acute intracranial process. POS: OFF
--- NOTE | 2020-03-22 11:33 | RAD ---
PORTABLE CHEST 1 VIEW: Date: 03/22/2020 Time: 0919 hours HISTORY: Altered mental status. Central line placement. Patient missed dialysis this morning. FINDINGS: Comparison made with exam of 03/10/2020. There has been interval placement of a right internal jugular central venous catheter which traverses inferiorly to cross the midline. The positioning does not appear to be in the course of the SVC or t he right atrium. No pneumothorax seen. Cardiomegaly, right pleural effusion, and bilateral vascular stents are again seen. Discussed over the telephone with ER physician, Dr. Brandan Kinsey, at 1026 hours. CODE CR. POS: OFF
[2020-03-22] MEDS ORDERED: Dextrose 5% in Water 1,000 ML IV PRN (11:52)
[2020-03-22] MEDS ORDERED: Dextrose 50% Abboject 50 ML SYRINGE IVP PRN (11:52)
[2020-03-22] MEDS ORDERED: HUMULIN R 100 UNITS in Sodium Chloride 0.9% 100 ML IVPB SCH ×2 (12:00→15:09)
--- NOTE | 2020-03-22 12:01 | PDOC.FPRHP ---
- History of Present Illness Chief Complaint: AMS, Hyperglycemia History of Present Illness: 39 yo M with pmhx of DM II, ESRD presents to the ED with AMS. Pt missed dialysis on Monday due to diarrhea. States this continued a bit through the weekend but is improved. Today mother felt pt's mental status was not at baseline so called EMS. Upon admission pt was found to be in DKA. Pt was recently admitted for similar situation on 03/10 and discharged 2 days later. Pt states he takes basal bolus insulin but is unsure how much he takes as his mother draws it up for him. History is limited due to AMS. Pt denies any current abdominal pain, N/V, headache. He does not make much urine at baseline. Confirms mild continuation of his diarrhea. ED Course: 6 u x2 regular insulin. 1L NS bolus. IJ central line placed due to difficult acess. - Allergies/Adverse Reactions Allergies Allergy/AdvReac Type Severity Reaction Status Date / Time Penicillins Allergy Unknown Verified 03/10/20 19:58 - Home Medications Medication Instructions Recorded Confirmed Type Sevelamer Carbonate [Renvela] 2,400 mg PO TID-WM 09/08/15 03/22/20 History Amlodipine Besylate [amLODIPine 10 mg PO DAILY 09/02/16 03/22/20 History Besylate] Cinacalcet HCl [Sensipar] 60 mg PO DAILY 09/02/16 03/22/20 History hydrALAZINE [Apresoline] 25 mg PO TID 09/02/16 03/22/20 History Sertraline HCl 25 mg PO DAILY 03/03/17 03/22/20 History Acetaminophen [Tylenol Regular 650 mg PO Q4H PRN tab 09/27/18 03/22/20 Rx Strength] HumaLOG [HumaLOG Vial] 3 units SC TID-WM vial 11/26/19 03/22/20 Rx levETIRAcetam [Keppra] 500 mg PO BID #0 tab 11/26/19 03/22/20 Rx Diphenoxylate HCl/Atropine 2 tab PO TID PRN #60 tab 02/19/20 03/22/20 Rx [Lomotil] Aspirin [Ecotrin Low Strength] 81 mg PO DAILY 02/27/20 03/22/20 History Dextrose 50% 25 gm IVP PRN PRN syringe 03/12/20 03/22/20 Rx Insulin Glargine [Lantus Vial] 15 units SC QAM #1 vial 03/12/20 03/22/20 Rx - History PMHx: ESRD, Polysubstance Abuse, DM II PSHx: Right BKA, Fistula Placement Right Arm FHx: Unable to obtain due to AMS Social: Patient endorsed Tobacco, MJ and PCP Abuse, but denied EtOH Abuse Code: Full - Review of Systems ROS unobtainable: due to mental status General: denies: fever/chills Respiratory: denies: shortness of breath Gastrointestinal: reports: diarrhea. denies: nausea, vomiting, abdominal pain - Vital signs BP: 107/60, Pulse: 73, Resp: 12, Temp: UTR (Oral), Pain: 0, O2 sat: 96 on (Room Air), Wt: 79kg - Physical Exam Constitutional: NAD -Constitutional: Sleepy, hard of hearing, difficult to carry conversation HEENT: conjunctiva clear, no scleral icterus, other (mild palpebral mattering) -HEENT: Very hard of hearing Neck: FROM -Neck: Right IJ in place Heart: RRR -Heart: Mild s1/s2 splitting Lungs: CTAB, no respiratory distress Abdomen: soft, non-tender, bowel sounds present Musculoskeletal: ROM grossly normal -Musculoskeletal: Right BKA Neurological: no focal deficit, normal sensation -Neurological: Sleepy but easily arousable, follows simple commands, does not process complex questions well, Skin: no rash/lesions Psychiatric: normal mood and affect FMR H&P: Results - Labs Result Diagrams: 03/22/20 09:18 03/22/20 15:09 Lab results: WBC 8.4 thou/uL (4.8-10.8) 03/22/20 09:18 Hgb 9.2 g/dL (14.0-18.0) L 03/22/20 09:18 Hct 29.4 % (42.0-52.0) L 03/22/20 09:18 MCV 95.4 fL (78.0-98.0) 03/22/20 09:18 Plt Count 237 thou/uL (130-400) 03/22/20 09:18 Neutrophils % 84.0 % (42.0-75.0) H 03/22/20 09:18 ABG pH 7.12 (7.35-7.45) L* 03/22/20 10:50 ABG pCO2 53.1 mmHg (35.0-45.0) H 03/22/20 10:50 ABG pO2 77.4 mmHg (80.0-100.0) L 03/22/20 10:50 VBG pH 7.12 (7.32-7.43) L* 03/22/20 11:10 VBG pCO2 58.0 mmHg (42.0-51.0) H 03/22/20 11:10 VBG pO2 43.5 mmHg (35.0-45.0) 03/22/20 11:10 Sodium 132 mmol/L (136-145) L 03/22/20 09:18 Potassium 5.1 mmol/L (3.5-5.1) 03/22/20 09:18 Chloride 92 mmol/L (98-107) L 03/22/20 09:18 Carbon Dioxide 13 mmol/L (22-29) L 03/22/20 09:18 BUN 81 mg/dL (8.9-20.6) H 03/22/20 09:18 Creatinine 10.44 mg/dL (0.7-1.3) H 03/22/20 09:18 Glucose 475 mg/dL (70-105) H 03/22/20 09:18 Calcium 8.3 mg/dL (7.8-10.44) 03/22/20 09:18 Total Bilirubin 0.4 mg/dL (0.2-1.2) 03/22/20 09:18 AST 10 U/L (5-34) 03/22/20 09:18 ALT 11 U/L (8-55) 03/22/20 09:18 Alkaline Phosphatase 125 U/L (40-110) H 03/22/20 09:18 Serum Total Protein 7.1 g/dL (6.0-8.3) 03/22/20 09:18 Albumin 3.5 g/dL (3.5-5.0) 03/22/20 09:18 - Radiology Interpretation Chest x-ray Status: report reviewed by me (No pneumothorax seen. Cardiomegaly, right pleural effusion, and bilateral vascular stents are again seen.) CT scan - head Status: report reviewed by me (No CT evidence of acute intracranial process.) FMR H&P: A/P - Plan Acute metabolic encephalopathy 2/2 DKA and Uremia -DKA with initial glucose of 475 and gap of 27 -Uremia in setting of ESRD with missed HD Monday -Start on modified DKA protocol: -Step 4 will use D10 at 100ml/hr rather than D5 to decrease fluid usage in pt prone to overload -Trend BMP for potassium and GAP -Due to missed HD gap may remain due to unmeasured anions present -ABG in ED pH 7.12, pCO2 53.1, pO2 77, Bicarb 17.0 - Received 12 u regular and 1L NS ESRD on Hemodialysis -Consult Dr. Hurd, who is contract engineer for Dr. Gonzalez, he plans to dialyze tonight -This will address hyper -mg and phos DM 1 -DKA protocol as above until controlled -Resume home meds once patient is eating and glucose levels have stabilized HTN -Currently having low pressures, will hold home antihypertensives for now Code: Full VTE: Heparin IVF: Per protocol with adjustments as above Diet: NPO Disposition: Admit to [facility] for DKA protocol drip and dialysis tonight. ELOS > 48hr. PCP: Dr. Mckinley FMR H&P: Upper Level - Plan Date/Time: 03/22/20 1201 I, Kaiser Hdz DO, have evaluated this patient and agree with findings/plan as outlined by advertising internship resident. Pertinent changes/additions are listed here. This is a 39 yo male well known to our service for multiple admissions, the most recent being for acute metabolic and toxic encephalopathy 2/2 DKA, uremia, and polysubastance abuse. He was discharged on 03/12/20. Today he presents to the ER with a cc of hyperglycemia and AMS. Per his , the pt woke up this AM more confused than usual. He states that he had missed his dialysis on Monday because had diarrhea. He also states that his sugar has been running high and always tends to be elevated. He states otherwise, he feels ok right now. Objective: Vitals: BP 99/61, HR 70, RR 12, Temp: UTR, SPo2 95% General: Lethargic, cooperative HEENT: AT/NC, mmm Cardio: RRR, 2/6 systolic murmur Respiratory: CTAB, no rhonchi or signs of fluid overload Abdomen: Soft, nontender, BS present Extremities: Right BKA, left leg 1+ pitting edema A/P Acute metabolic encephalopathy 2/2 DKA and Uremia -Admit to IMCU -Start on modified DKA protocol: Will skip to step 4 and use D10 at 100ml/hr maintain his blood sugar without fluid overloading pt. We will try to limit fluid boluses only for hypotension. We will continue monitoring for hypokalemia and replace as needed. Of note, we will be following his anion gap, however this may not completely close until after his dialysis due to his ESRD. -Per ABG pH 7.12, pCO2 53.1, pO2 77, Bicarb 17.0 DKA -As above Uremia -Plans for dialysis this evening ESRD on HD -Consult Dr. Hurd -Dialyze Hyperphosphatemia -Dialyze tonight Hypermagnesemia -Dialyze tonight DM1 -DKA protocol for now as documented above -Will restart home medications Management of chronic illnesses and further historical/physical findings per advertising internship note. Code: Full Prophylaxis: Heparin Family: None at bedside Fluids: Per protocol Diet: NPO Drips: Insulin at 6 Lines: Right IJ, left IO Disposition: DC in 3-4 days PCP: Dr. Mckinley Addendum - Attending - Attending Attestation Date/Time: 03/22/20 1300 I personally evaluated the patient and discussed the management with [ Ruthann] I agree with the History, Examination, Assessment and Plan documented above with any addition or exceptions noted below.
--- NOTE | 2020-03-22 14:49 | CON ---
DATE OF CONSULTATION: 03/22/2020 CONSULTING PHYSICIAN: Raul Meeks DO REASON FOR CONSULTATION: End-stage renal disease evaluation. REASON FOR ADMISSION: Altered mentation and hyperglycemia. HISTORY OF PRESENT ILLNESS: This is a 39-year-old male with history of end-stage renal disease, type 2 diabetes, polysubstance abuse, peripheral vascular disease, came to the hospital with altered mentation. The patient not able to give a good history. He is hard of hearing and also denies any symptoms. He said he did not feel well, but is feeling well now. He missed dialysis on Monday, usually he has dialysis on Monday, Monday, and Monday. PAST MEDICAL HISTORY: Positive for end-stage renal disease, polysubstance abuse, type 2 diabetes. PAST SURGICAL HISTORY: Right BKA, fistula placement. HOME MEDICATIONS: Reviewed. ALLERGIES: PENICILLIN. SOCIAL HISTORY: History of tobacco, alcohol, or illicit drug abuse in the past. FAMILY HISTORY: No history of any kidney disease. REVIEW OF SYSTEMS: Could not be obtained due to altered mentation. PHYSICAL EXAMINATION: GENERAL: This is a well-built male, in no apparent distress. VITAL SIGNS: Reviewed. HEENT: Atraumatic, normocephalic. NECK: Supple. CARDIOVASCULAR: S1 and S2. Rate and rhythm regular. RESPIRATORY: Clear. GASTROINTESTINAL: Abdomen is soft. MUSCULOSKELETAL: 1+ edema. DERMATOLOGIC: No skin rash. NEUROLOGICAL: Confused. PSYCHIATRIC: Depressed. LABORATORY DATA: Hemoglobin is 9.2, potassium 5.1, bicarb is 13, BUN is 81, creatinine is 10.4, phosphorus 9.9, magnesium 2.7, and albumin 3.5. ASSESSMENT AND PLAN: 1. End-stage renal disease. Plan is to have 2 hours of dialysis today and then continue dialysis on Monday, Monday, and Monday. 2. Hyperkalemia, but in the context of diabetic ketoacidosis, we will use 3K bath. 3. Acidosis, most likely from diabetic ketoacidosis. We will have dialysis. 4. Diabetic ketoacidosis. 5. Azotemia. 6. Hyperglycemia. 7. Hyperphosphatemia. 8. Hypermagnesemia. 9. Anemia of chronic disease. 10. History of hypertension. 11. Altered mentation. Plan to continue dialysis as tolerated. Thank you for the consult. Job ID: [id number]
[2020-03-22 15:04] LABS: HBSAg Index 0.18 S/CO (0-0.99); Hep B Surf Ag Non-Reactive S/CO (NonReactive)
[2020-03-22] MEDS ORDERED: Acetaminophen 325 MG TAB PO PRN (15:09)
[2020-03-22] MEDS ORDERED: Heparin 5,000 UNITS/ML VIAL SC SCH ×2 (15:09→23:59)
[2020-03-22] MEDS ORDERED: CCU Electrolyte Replacement 1 EACH IVPB ONE (15:09)
[2020-03-22 15:18] VITALS: BMI 25.0
[2020-03-22] MEDS ORDERED: Potassium Phosphate 12 MMOL in Sodium Chloride 0.9% 250 ML 250 ML IV PRN (15:21)
[2020-03-22] MEDS ORDERED: CCU ELECTROLYTE REPLACEMENT PROTOCOL FS PRN (15:21)
[2020-03-22] MEDS ORDERED: Potassium Phosphate 15 MMOL in Sodium Chloride 0.9% 250 ML 250 ML IV PRN (15:21)
[2020-03-22] MEDS ORDERED: Magnesium Oxide 400 MG TAB PO PRN ×2 (15:21)
[2020-03-22] MEDS ORDERED: Magnesium 2 GM/50 ML 2 GM in Premix Bag 1 BAG IVPB PRN (15:21)
[2020-03-22] MEDS ORDERED: Potassium Chloride 40 MEQ in Sodium Chloride 0.9% 250 ML 250 ML IVPB PRN (15:21)
[2020-03-22] MEDS ORDERED: PHOS-NAK 1 PKT PACK PO PRN ×2 (15:21)
[2020-03-22] MEDS ORDERED: Potassium Chloride 20 MEQ TAB PO PRN (15:21)
[2020-03-22] MEDS ORDERED: Potassium Phosphate 9 MMOL in Sodium Chloride 0.9% 100 ML IVPB PRN (15:21)
[2020-03-22] MEDS ORDERED: Potassium Chloride 40 MEQ in Premix Bag 1 BAG IVPB PRN (15:21)
[2020-03-22] MEDS: Dextrose 10% in Water 1,000 ML IV SCH (16:15)
[2020-03-22 16:17] LABS: Anion Gap 18 mmol/L (10-20); BUN (Urea Nitrogen) 46 mg/dL (8.9-20.6); Calc. Creatinine Clearance 18 mL/min (70-130); Carbon Dioxide 25 mmol/L (22-29); Chloride 101 mmol/L (98-107); Estimated GFR-MDRD 12; Glucose 205 mg/dL (70-105); Magnesium 2.3 mg/dL (1.6-2.6); Phosphorus 5.3 mg/dL (2.3-4.7); Sodium 140 mmol/L (136-145)
[2020-03-22 19:36] LABS: Anion Gap 17 mmol/L (10-20); BUN (Urea Nitrogen) 54 mg/dL (8.9-20.6); Calc. Creatinine Clearance 15 mL/min (70-130); Calcium 7.9 mg/dL (7.8-10.44); Carbon Dioxide 26 mmol/L (22-29); Chloride 98 mmol/L (98-107); Estimated GFR-MDRD 10; Glucose 190 mg/dL (70-105); Potassium 4.5 mmol/L (3.5-5.1); Sodium 136 mmol/L (136-145)
[2020-03-22 23:47] LABS: Anion Gap 17 mmol/L (10-20); BUN (Urea Nitrogen) 57 mg/dL (8.9-20.6); Calc. Creatinine Clearance 14 mL/min (70-130); Calcium 7.8 mg/dL (7.8-10.44); Carbon Dioxide 26 mmol/L (22-29); Chloride 99 mmol/L (98-107); Estimated GFR-MDRD 9; Glucose 198 mg/dL (70-105); Potassium 4.7 mmol/L (3.5-5.1); Sodium 137 mmol/L (136-145)
[2020-03-23] MEDS: Dextrose 10% in Water 1,000 ML IV SCH ×2 (02:06→14:44)
--- NOTE | 2020-03-23 03:05 | PDOC.BPN ---
- Brief Progress Note AG 12 ordered 1 time dose 15 U lantus (home dose per med rec) stop insulin drip 2 hrs following lantus
[2020-03-23] MEDS ORDERED: Insulin Glargine 15 UNITS in Pre-Filled Syringe 1 EACH SC SCH (03:30)
[2020-03-23 03:49] LABS: Anion Gap 17 mmol/L (10-20); BUN (Urea Nitrogen) 57 mg/dL (8.9-20.6); Calc. Creatinine Clearance 14 mL/min (70-130); Calcium 7.8 mg/dL (7.8-10.44); Carbon Dioxide 26 mmol/L (22-29); Chloride 97 mmol/L (98-107); Estimated GFR-MDRD 9; Glucose 188 mg/dL (70-105); Potassium 4.8 mmol/L (3.5-5.1); Sodium 135 mmol/L (136-145)
[2020-03-23 03:50] LABS: Band 2 % (5-11); Hemoglobin 8.1 g/dL (14.0-18.0); Hypochromia SLIGHT = 6-15 cells (100X) (0-5/hpf); Lymphocytes 12 % (21-51); MDiff Complete? YES; Mean Corpuscular HGB CONC 31.4 g/dL (32.0-36.0); Mean Corpuscular Hemoglobin 29.9 pg (27.0-31.0); Mean Corpuscular Volume 95.1 fL (78.0-98.0); Mean Platelet Volume 10.7 fL (7.4-10.4); Metamyelocyte 1 % (0-0); Monocytes 3 % (0-10); Neutrophil 82 % (42-75); Platelet Count 187 thou/uL (130-400); Platelet Morphology Comment Appears Adequate; RBC Distribution Width 17.1 % (11.5-14.5); Red Blood Cell (RBC) Count 2.72 mill/uL (4.70-6.10); White Blood Cell (WBC) Count 9.1 thou/uL (4.8-10.8)
--- NOTE | 2020-03-23 06:57 | PDOC.FM ---
- Subjective Subjective: Patient reports that he is feeling bad this morning, he is unable to articulate in what way. He states he wants to get out of the hospital and go home. He has been refusing peripheral blood glucose draws this morning. Anion gap closed overnight, Lantus 15 u was given this morning around 0300, DKA protocol stopped 2 hours later. He is currently on D10 which was just ordered to be stopped, last BS 226. He remains on a alejandro hugger for low T of 95.6 yesterday afternoon. His Temp is normal this AM. - Objective Vital Signs & Weight: Vital Signs (12 hours) Temp Resp Pulse Ox 03/23/20 04:00 98.1 F 16 03/23/20 00:27 96 03/23/20 00:00 13 03/22/20 23:38 98.1 F 03/22/20 20:00 16 97 03/22/20 19:19 97.4 F L Weight Weight 78.925 kg Most Recent Monitor Data Heart Rate from ECG 82 NIBP 99/50 NIBP BP-Mean 66 Respiration from ECG 10 SpO2 92 I&O: 03/21/20 03/22/20 03/23/20 06:59 06:59 06:59 Intake Total 3700 Output Total 0 Balance 3700 Result Diagrams: 03/23/20 03:10 03/23/20 03:10 Phys Exam - Physical Examination Constitutional: NAD Respiratory: no wheezing, clear to auscultation bilateral Cardiovascular: RRR Gastrointestinal: soft, no distention diffuse TTP Musculoskeletal: pulses present 1+ edema all extremities Neurological: non-focal, moves all 4 limbs Deviation from normal: Patient is sleepy and somewhat uncooperative. AO to person and place Skin: normal turgor, cap refill <2 seconds Dx/Plan (1) Acute metabolic encephalopathy Code(s): G93.41 - METABOLIC ENCEPHALOPATHY Status: Acute (2) Diabetes mellitus type 1 Code(s): E10.9 - TYPE 1 DIABETES MELLITUS WITHOUT COMPLICATIONS Status: Chronic (3) ESRD (end stage renal disease) on dialysis Code(s): N18.6 - END STAGE RENAL DISEASE; Z99.2 - DEPENDENCE ON RENAL DIALYSIS Status: Chronic (4) Hypertension Code(s): I10 - ESSENTIAL (PRIMARY) HYPERTENSION Status: Chronic Qualifiers: Hypertension type: essential hypertension Qualified Code(s): I10 - Essential (primary) hypertension (5) DKA (diabetic ketoacidoses) Code(s): E13.10 - OTH DIABETES MELLITUS WITH KETOACIDOSIS WITHOUT COMA Status : Acute (6) Hypothermia Code(s): T68.XXXA - HYPOTHERMIA, INITIAL ENCOUNTER Status: Acute - Plan Plan: Acute metabolic encephalopathy 2/2 DKA and Uremia -Currently admitted to [facility] -Per ABG pH 7.12, pCO2 53.1, pO2 77, Bicarb 17.0 -Dialyzed yesterday, no fluid removed as BP unable to tolerate -Anion gap: 27-> 12 this AM -Stop DKA protocol as anion gap closed overnight. Lantus 15 u given this AM, stop insulin drip and stop IV D10. Diet started this AM: Consistent carb 1800 renata/day, fluid restrict 1800 ml/day, HH. DKA -As above -Gap now closed, protocol stopped Hypothermia, resolved -Started on Alejandro hugger yesterday -Stop today, monitor temperatures today Uremia -S/p dialysis -continue to monitor ESRD on HD - Dr. Hurd covering for Dr. Gonzalez, appreciate recs -Dialyzed 03/22 -Plan for dialysis again today -strict I/Os Hyperphosphatemia -Dialyzed overnight -phosphate remains high at 6.7 this AM -Vannessa consulted, appreciate recs Hypermagnesemia, resolved -Dialyzed 03/22 -Magnesium now wnl DM1 -DKA protocol now DC -Continue home medications -accuchecks q2h Hx HTN -BP soft today -Hold home BP medications Code: Full Prophylaxis: Heparin Family: None at bedside Diet: HH, CC 1800, fluid restrict 1800 ml/day Fluids: SL Lines: Right IJ Disposition: Likely DC to home in 2-3 days. Possible transition out of IMCU later today if BS stabilize and BP stable PCP: Dr. Ava Hardwick MD Addendum - Attending - Attending Attestation Date/Time: 03/23/20 6572 I personally evaluated the patient and discussed the management with Dr. Hardwick. I agree with the History, Examination, Assessment and Plan documented above with any addition or exceptions noted below. Continue HD. Transfer to telemetry. Anion gap closed.
[2020-03-23 08:00] LABS: Magnesium 2.3 mg/dL (1.6-2.6); Phosphorus 6.7 mg/dL (2.3-4.7)
[2020-03-23] MEDS ORDERED: Diphenoxylate HCl/Atropine Tablet PO PRN (11:25)
--- NOTE | 2020-03-23 12:24 | PRG ---
DATE OF SERVICE: 03/23/2020 SUBJECTIVE: A 39-year-old gentleman, being seen for end-stage renal disease. The patient denies any nausea, vomiting, or chest pain. OBJECTIVE: General: The patient is awake and alert. Vital Signs: Afebrile, pulse , breathing at 16, blood pressure 132/61. HEENT: Head normocephalic and atraumatic. Eyes intact, no ulcers. Nose intact, no ulcers. Ears intact, no ulcers. Neck: Supple. No JVD. Chest: Symmetrical and clear. Cardiovascular: Shows S1 and S2, no rub, no murmur. Gastrointestinal: Abdomen is soft, bowel sounds positive. Extremities: Show no edema or ulcers. Skin: Shows no rash or petechiae. Musculoskeletal: Shows no joint swelling or stiffness. Genitourinary: Shows no Clifton or CVA tenderness. Neurologic: Motor intact. Cranial nerves intact. LABORATORY DATA: Reviewed. ASSESSMENT AND PLAN: 1. Stage 6 chronic kidney disease, stable. 2. Hypertension, stable. 3. Anemia, stable. 4. Medication based on GFR appropriate. Job ID: [id number]
[2020-03-23] MEDS: Heparin 5,000 UNITS/ML VIAL SC SCH ×3 (14:43→21:37)
[2020-03-23] MEDS: Sevelamer Carbonate 800 MG TAB PO SCH ×2 (14:43→18:30)
[2020-03-23] MEDS: levETIRAcetam 500 MG TAB PO SCH (21:37)
[2020-03-24] MEDS ORDERED: Dextrose 5% in Water 1,000 ML IV PRN (03:00)
[2020-03-24] MEDS ORDERED: Dextrose 50% Abboject 50 ML SYRINGE SLOW IVP PRN (03:00)
[2020-03-24 04:08] LABS: #Eosinphils 0.1 thou/uL (0.0-0.7); #Lymphocytes 1.8 thou/uL (1.20-3.40); #Monocytes 1.1 thou/uL (0.11-0.59); #Neutrophils 4.7 thou/uL (1.40-6.50); %Basophils 0.4 % (0.0-1.0); %Eosinophils 1.1 % (0.0-10.0); %Lymphocytes 23.9 % (21.0-51.0); %Monocytes 13.7 % (0.0-10.0); %Neutrophils 60.9 % (42.0-75.0); Hemoglobin 8.7 g/dL (14.0-18.0); Mean Corpuscular HGB CONC 31.8 g/dL (32.0-36.0); Mean Corpuscular Hemoglobin 29.8 pg (27.0-31.0); Mean Corpuscular Volume 93.7 fL (78.0-98.0); Mean Platelet Volume 11.3 fL (7.4-10.4); Platelet Count 180 thou/uL (130-400); RBC Distribution Width 17.1 % (11.5-14.5); Red Blood Cell (RBC) Count 2.91 mill/uL (4.70-6.10); White Blood Cell (WBC) Count 7.7 thou/uL (4.8-10.8)
[2020-03-24 04:34] LABS: Anion Gap 16 mmol/L (10-20); BUN (Urea Nitrogen) 24 mg/dL (8.9-20.6); Calc. Creatinine Clearance 22 mL/min (70-130); Calcium 8.2 mg/dL (7.8-10.44); Carbon Dioxide 27 mmol/L (22-29); Chloride 96 mmol/L (98-107); Estimated GFR-MDRD 16; Glucose 140 mg/dL (70-105); Phosphorus 4.7 mg/dL (2.3-4.7); Potassium 3.7 mmol/L (3.5-5.1); Sodium 135 mmol/L (136-145)
[2020-03-24] MEDS: Heparin 5,000 UNITS/ML VIAL SC SCH (08:43)
[2020-03-24] MEDS: Sevelamer Carbonate 800 MG TAB PO SCH ×2 (08:46→12:41)
[2020-03-24] MEDS: levETIRAcetam 500 MG TAB PO SCH (08:47)
[2020-03-24] MEDS ORDERED: Insulin Glargine 15 UNITS in Pre-Filled Syringe 1 EACH SC SCH (09:00)
[2020-03-24] MEDS ORDERED: Cinacalcet HCl 30 MG TAB PO SCH (09:00)
[2020-03-24] MEDS ORDERED: Aspirin 81 mg Enteric Coated Tablet PO SCH (09:00)
[2020-03-24] MEDS ORDERED: Amlodipine 10 MG TAB PO SCH (09:00)
--- NOTE | 2020-03-24 09:05 | PDOC.FM ---
- Subjective Subjective: Patient is much more alert this morning. Low BS in the 50s this AM. Given juice Patient denies chest pain, palpitations, or SOB. States he is feeling much better. - Objective Vital Signs & Weight: Vital Signs (12 hours) Temp Pulse Resp BP Pulse Ox 03/24/20 07:03 99 03/24/20 03:51 98.4 F 97 14 119/59 L 99 03/23/20 23:03 81 12 Weight Admit Weight 78.925 kg Weight 78.925 kg Most Recent Monitor Data Heart Rate from ECG 85 NIBP 167/92 NIBP BP-Mean 117 Respiration from ECG 0 SpO2 91 I&O: 03/23/20 03/24/20 03/25/20 06:59 06:59 06:59 Intake Total 3700 1211 Output Total 0 0 Balance 3700 1211 Result Diagrams: 03/24/20 03:36 03/24/20 03:36 Phys Exam - Physical Examination Constitutional: NAD HEENT: moist MMs Respiratory: no wheezing, clear to auscultation bilateral Cardiovascular: RRR, no significant murmur Gastrointestinal: soft, non-tender, no distention edema improved in upper and lower extremities Neurological: non-focal, moves all 4 limbs Psychiatric: normal affect, A&O x 3 Skin: normal turgor, cap refill <2 seconds Dx/Plan (1) Acute metabolic encephalopathy Code(s): G93.41 - METABOLIC ENCEPHALOPATHY Status: Acute (2) Diabetes mellitus type 1 Code(s): E10.9 - TYPE 1 DIABETES MELLITUS WITHOUT COMPLICATIONS Status: Chronic (3) ESRD (end stage renal disease) on dialysis Code(s): N18.6 - END STAGE RENAL DISEASE; Z99.2 - DEPENDENCE ON RENAL DIALYSIS Status: Chronic (4) Hypertension Code(s): I10 - ESSENTIAL (PRIMARY) HYPERTENSION Status: Chronic Qualifiers: Hypertension type: essential hypertension Qualified Code(s): I10 - Essential (primary) hypertension (5) DKA (diabetic ketoacidoses) Code(s): E13.10 - OTH DIABETES MELLITUS WITH KETOACIDOSIS WITHOUT COMA Status : Acute (6) Hypothermia Code(s): T68.XXXA - HYPOTHERMIA, INITIAL ENCOUNTER Status: Acute - Plan Plan: Acute metabolic encephalopathy 2/2 DKA and Uremia, resolved -Mental status at baseline this morning -s/p dialysis x2 03/22 and 03/23 -Anion gap: 27-> 12 -plan to discharge to home today, follow up with myself Dr. Ava Hardwick in 2-3 days DKA, resolved -As above Hypothermia, resolved -Temperatures stable Uremia, resolved -S/p dialysis ESRD on HD - Dr. Hurd covering for Dr. Gonzalez, appreciate recs - Dialyzed 03/22 and 03/23 -strict I/Os Hyperphosphatemia, resolved -Resolved after dialysis -Vannessa consulted, appreciate recs -resume home phosphate binder Hypermagnesemia, resolved -Magnesium now wnl DM1 -Continue home medications -accuchecks achs Hx HTN -restart home antihypertensives Code: Full Prophylaxis: Heparin Family: None at bedside Diet: HH, CC 1800, fluid restrict 1800 ml/day Fluids: SL Lines: Right IJ Disposition: Likely DC to home today, pending nephrology recommendations. Follow up closely in clinic outpatient. PCP: Dr. Ava Hardwick MD Addendum - Attending - Attending Attestation Date/Time: 03/24/20 1401 I personally evaluated the patient and discussed the management with Dr. Hardwick. I agree with the History, Examination, Assessment and Plan documented above with any addition or exceptions noted below. d/c home stressed compliance.
[2020-03-24] MEDS ORDERED: HumaLOG 300 UNITS/3 ML VIAL SC PRN (09:07)
[2020-03-24 11:21] VITALS: BP 126/58
--- NOTE | 2020-03-24 11:23 | PRG ---
DATE OF SERVICE: 03/24/2020 SUBJECTIVE: A 39-year-old gentleman being seen for end-stage renal disease. The patient denied any nausea, vomiting, or chest pain. OBJECTIVE: GENERAL: The patient is awake and alert. VITAL SIGNS: Afebrile, pulse 72, breathing 16, and blood pressure 127/51. HEENT: Head normocephalic and atraumatic. Eyes intact, no ulcers. Nose intact, no ulcers. Ears intact, no ulcers. NECK: Supple. No JVD. CHEST: Symmetrical and clear. CARDIOVASCULAR: Shows S1 and S2, no rub, no murmur. GASTROINTESTINAL: Abdomen is soft, bowel sounds positive. EXTREMITIES: Show no edema or ulcers. SKIN: Shows no rash or petechiae. MUSCULOSKELETAL: Shows no joint swelling or stiffness. GENITOURINARY: Shows no Clifton or CVA tenderness. NEUROLOGIC: Motor intact. Cranial nerves intact. LABORATORY DATA: Reviewed. ASSESSMENT AND PLAN: 1. Stage 6 chronic kidney disease, stable. 2. Hypertension, stable. 3. Anemia, stable. 4. Medication based on GFR appropriate. Job ID: [id number]
[2020-03-24 12:28] VITALS: TEMP 96.2
[2020-03-24] MEDS ORDERED: hydrALAZINE 25 MG TAB PO SCH (15:00)
--- NOTE | 2020-03-25 11:24 | DIS ---
DATE OF ADMISSION: 03/22/2020 DATE OF DISCHARGE: 03/24/2020 RESIDENT: Mela Hardwick MD ADMITTING ATTENDING: Dr. Saji Rao. DISCHARGE ATTENDING: Dr. Doron Fisher. CONSULT: Nephrology, Dr. Hurd on 03/22/2020. PROCEDURES: 1. Chest x-ray, 03/22/2020; cardiomegaly, right pleural effusion, and bilateral vascular stents. Interval placement of right IJ central venous catheter. 2. Brain CT, 03/22/2020, impression; no CT evidence of acute intracranial process. 3. Dialysis, 03/22 and 03/23. PRIMARY DIAGNOSIS: Acute metabolic encephalopathy secondary to diabetic ketoacidosis and uremia. SECONDARY DIAGNOSES: 1. Diabetic ketoacidosis. 2. Uremia. 3. Hypothermia. 4. End-stage renal disease, on hemodialysis. 5. Hyperphosphatemia. 6. Hypermagnesemia. 7. Diabetes mellitus, type 1. 8. Hypertension. 9. Polysubstance abuse. DISCHARGE MEDICATIONS: 1. Renvela 2400 mg oral t.i.d. with meals. 2. Sensipar 60 mg p.o. daily. 3. Hydralazine 25 mg p.o. t.i.d. 4. Amlodipine 10 mg p.o. daily. 5. Sertraline 25 mg p.o. daily. 6. Tylenol 650 mg p.o. q.4 hours p.r.n. for headache, fever, or mild pain. 7. Humalog 3 units subcutaneously t.i.d. with meals. 8. Keppra 500 mg p.o. b.i.d. 9. Lomotil 2 tabs p.o. t.i.d. p.r.n. for diarrhea or loose stools. 10. Aspirin 81 mg p.o. daily. 11. Insulin glargine (Lantus) 15 units subcutaneously every morning. DISCONTINUED MEDICATIONS: None. HISTORY OF PRESENT ILLNESS/HOSPITAL COURSE: A 39-year-old male with past medical history of type 1 diabetes mellitus and end-stage renal disease, presents to the emergency department with altered mental status. The patient missed dialysis on March 20, 2020, due to diarrhea. The patient's mother felt that the patient's mental status was not at baseline, so she called EMS. The patient was found to be in DKA. In the ED, he was given 12 units of regular insulin and 1 L normal saline bolus. An IJ central line was placed due to difficult access. The patient was dialyzed twice during the stay and was started on the DKA protocol. His anion gap closed, and he was transferred to the floor. The patient did have an episode of hypothermia, which resolved. The patient's uremia resolved with dialysis. His hyperphosphatemia and hypermagnesemia also resolved, and the patient was discharged on his home phosphate binder. His antihypertensives were held while he was in the IMCU due to low pressures, but his pressures were back to normal at discharge. DISPOSITION: Stable. DISCHARGE INSTRUCTIONS: 1. Location: Home. 2. Diet: Heart healthy, consistent carbohydrate at 800 calories a day, fluid restrict to 1800 mL per day. 3. Followup: With Dr. Mela Hardwick at [facility] in 1 week. Job ID: [id number]
--- NOTE | 2020-03-28 15:05 | EKG ---
Test Reason : HYPOTENSION Blood Pressure : / mmHG Vent. Rate : 074 BPM Atrial Rate : 074 BPM P-R Int : 172 ms QRS Dur : 100 ms QT Int : 408 ms P-R-T Axes : 064 116 025 degrees QTc Int : 452 ms Normal sinus rhythm Right axis deviation Low voltage QRS Incomplete right bundle branch block Septal infarct , age undetermined Abnormal ECG Confirmed by TRACI DUMONT, BETINA ([id number]), digital editor ABRIL VAZQUEZ ([id number]) on 03/28/2020 3:04:35 PM Referred By: TRACI Confirmed By:BETINA AVILES MD
== END 2020-03-24 14:40 | disposition home health service (06) | DRG 637 ==
LOC: ERS 08:03 → IMCU/EMU 14:52 → 2NO 03-23 18:51
PROVIDERS: ADMIT Family Medicine; ATTEND Family Medicine
PROC: 5A1D70Z Performance of Urinary Filtration, Intermittent, Less than 6 Hours Per Day (ICD-10-PCS; principal; 2020-03-22)
PROC: 05HM33Z Insertion of Infusion Device into Right Internal Jugular Vein, Percutaneous Approach (ICD-10-PCS; 2020-03-22)
DX: E10.10 Type 1 diabetes mellitus with ketoacidosis without coma (principal); N18.6 End stage renal disease; G93.41 Metabolic encephalopathy; I12.0 Hypertensive chronic kidney disease with stage 5 chronic kidney disease or end stage renal disease; R19.7 Diarrhea, unspecified; F17.200 Nicotine dependence, unspecified, uncomplicated; F16.10 Hallucinogen abuse, uncomplicated; F12.10 Cannabis abuse, uncomplicated; E83.41 Hypermagnesemia; E83.39 Other disorders of phosphorus metabolism; E87.5 Hyperkalemia; E10.22 Type 1 diabetes mellitus with diabetic chronic kidney disease; D63.1 Anemia in chronic kidney disease; T68.XXXA Hypothermia, initial encounter; Z99.2 Dependence on renal dialysis; Z88.0 Allergy status to penicillin; Z79.82 Long term (current) use of aspirin; Z79.4 Long term (current) use of insulin; Z79.899 Other long term (current) drug therapy; Z89.511 Acquired absence of right leg below knee
CPT/HCPCS: 36415; 36416; 36556; 70450; 71045; 80048; 80053; 82010; 82330; 82803; 82805; 83735; 84100; 85025; 87340; 90935; 93005; 96361; 96365; 96374; G0257; J1644; J1815; J3490

== ENCOUNTER 2020-04-12 13:34 | Emergency (ER) | payer MEDICARE, MEDICAID ==
[2020-04-12] MEDS ORDERED: Dextrose 10% in Water 1,000 ML IV SCH (14:45)
[2020-04-12 14:49] LABS: #Eosinphils 0.1 thou/uL (0.0-0.7); #Monocytes 0.8 thou/uL (0.11-0.59); #Neutrophils 7.7 thou/uL (1.40-6.50); %Basophils 0.4 % (0.0-1.0); %Eosinophils 0.7 % (0.0-10.0); %Lymphocytes 10.6 % (21.0-51.0); %Monocytes 8.3 % (0.0-10.0); Hemoglobin 12.2 g/dL (14.0-18.0); Mean Corpuscular HGB CONC 31.3 g/dL (32.0-36.0); Mean Corpuscular Hemoglobin 29.7 pg (27.0-31.0); Mean Corpuscular Volume 94.8 fL (78.0-98.0); Mean Platelet Volume 10.6 fL (7.4-10.4); Platelet Count 142 thou/uL (130-400); RBC Distribution Width 17.6 % (11.5-14.5); Red Blood Cell (RBC) Count 4.12 mill/uL (4.70-6.10); White Blood Cell (WBC) Count 9.6 thou/uL (4.8-10.8)
[2020-04-12 15:09] LABS: Anion Gap 22 mmol/L (10-20); BUN (Urea Nitrogen) 64 mg/dL (8.9-20.6); Calc. Creatinine Clearance 0 mL/min (70-130); Calcium 8.6 mg/dL (7.8-10.44); Carbon Dioxide 22 mmol/L (22-29); Chloride 100 mmol/L (98-107); Estimated GFR-MDRD 7; Glucose 117 mg/dL (70-105); Potassium 4.8 mmol/L (3.5-5.1); Sodium 139 mmol/L (136-145)
== END 2020-04-12 16:29 | disposition home or self-care (01) ==
LOC: ERS 13:34
DX: E10.649 Type 1 diabetes mellitus with hypoglycemia without coma (principal); E78.5 Hyperlipidemia, unspecified; E78.00 Pure hypercholesterolemia, unspecified; I11.0 Hypertensive heart disease with heart failure; I50.9 Heart failure, unspecified; F17.210 Nicotine dependence, cigarettes, uncomplicated; Z99.2 Dependence on renal dialysis
CPT/HCPCS: 36415; 36416; 80048; 85025; 96365

== ENCOUNTER 2020-05-04 20:24 | Observation (INO) | payer MEDICARE, MEDICAID ==
[2020-05-04 21:23] LABS: #Eosinphils 0.1 thou/uL (0.0-0.7); #Monocytes 0.6 thou/uL (0.11-0.59); #Neutrophils 3.6 thou/uL (1.40-6.50); %Basophils 0.6 % (0.0-1.0); %Eosinophils 1.7 % (0.0-10.0); %Lymphocytes 18.2 % (21.0-51.0); %Monocytes 11.1 % (0.0-10.0); %Neutrophils 68.3 % (42.0-75.0); Hemoglobin 12.8 g/dL (14.0-18.0); Mean Corpuscular HGB CONC 32.4 g/dL (32.0-36.0); Mean Corpuscular Hemoglobin 29.2 pg (27.0-31.0); Mean Platelet Volume 12.5 fL (7.4-10.4); Platelet Count 145 thou/uL (130-400); RBC Distribution Width 16.3 % (11.5-14.5); Red Blood Cell (RBC) Count 4.37 mill/uL (4.70-6.10); White Blood Cell (WBC) Count 5.3 thou/uL (4.8-10.8)
[2020-05-04 22:00] LABS: CKMB 3.3 ng/mL (0-6.6)
[2020-05-04 22:06] LABS: ALT (SGPT) 74 U/L (8-55); AST (SGOT) 94 U/L (5-34); Albumin 3.7 g/dL (3.5-5.0); Alkaline Phosphatase 141 U/L (40-110); Anion Gap 25 mmol/L (10-20); BUN (Urea Nitrogen) 72 mg/dL (8.9-20.6); Bilirubin, Total 0.4 mg/dL (0.2-1.2); Calc. Creatinine Clearance 0 mL/min (70-130); Calcium 8.2 mg/dL (7.8-10.44); Carbon Dioxide 24 mmol/L (22-29); Chloride 97 mmol/L (98-107); Estimated GFR-MDRD 6; Globulin 3.3 g/dL (2.4-3.5); Glucose 131 mg/dL (70-105); Potassium 5.5 mmol/L (3.5-5.1); Sodium 140 mmol/L (136-145)
--- NOTE | 2020-05-04 22:33 | RAD ---
PORTABLE CHEST: Date: 05/04/2020 HISTORY: Diarrhea. Dialysis patient. COMPARISON: 03/22/2020. FINDINGS: A moderate size right pleural effusion is again noted. There is cardiomegaly and mild vascular conge stion. Right lung atelectasis and/or infiltrate, although the right lung is poorly evaluated due to l arge effusion. IMPRESSION: Large right effusion producing right lung atelectasis. Cardiomegaly. The right-sided effusion appears to have increased slightly since the 03/22/2020 exam. POS: AGW
[2020-05-05] MEDS ORDERED: Dextrose 5% in Water 1,000 ML IV PRN (00:30)
[2020-05-05] MEDS ORDERED: Acetaminophen 325 MG TAB PO PRN ×2 (00:30→03:12)
[2020-05-05] MEDS ORDERED: Dextrose 50% Abboject 50 ML SYRINGE SLOW IVP PRN (00:30)
[2020-05-05] MEDS ORDERED: HumaLOG 300 UNITS/3 ML VIAL SC PRN (00:33)
[2020-05-05 00:46] LABS: Troponin I 0.095 ng/mL (< 0.028)
--- NOTE | 2020-05-05 01:12 | PDOC.FPRHP ---
- History of Present Illness Chief Complaint: Diarrhea History of Present Illness: Pt reports to ED today he states due to low BS, CP, and diarrhea. Pt states that this AM his BS was 38 and he was unsure whether he had taken his insulin before that. After drinking some soda pt states that his BS brandie and he began to feel better. He also stated that today he started having substernal CP with no radiation. He had some SOB and dizziness as this was happening. He says the pain was intermittent today, lasting for about an hour at a time. Pt says he has not had anything like this before, and denies any precipitating factors for the CP. Of note, he is on dialysis MWF and missed today today d/t having 10+ watery bowel movements. He said he was able to complete his dialysis on Monday and he oftentimes has to miss dialysis due to this diarrhea. This problem is chronic and he takes imodium regularly for it. He states that he was diagnosed with c. diff at a prior hospitalization and is unsure what the treatment was for it. Pt denied having: fever/chills, N/V/constipation, abdominal pain. ED Course: Pt labs were found to be: K = 5.5, Troponin 0.101. BUN/Presidential Support Specialist 72/11.75. AST/ALT = 94/74. EKG = normal sinus rhythm. CXR showed large R pleural effusion increased since 03/22/20 causing atelectasis of R lung, and cardiomegaly. - Allergies/Adverse Reactions Allergies Allergy/AdvReac Type Severity Reaction Status Date / Time Penicillins Allergy Unknown Verified 03/10/20 19:58 - Home Medications Medication Instructions Recorded Confirmed Type Sevelamer Carbonate [Renvela] 2,400 mg PO TID- 09/08/15 05/05/20 History Amlodipine Besylate [amLODIPine 10 mg PO DAILY 09/02/16 05/05/20 History Besylate] Cinacalcet HCl [Sensipar] 60 mg PO DAILY 09/02/16 05/05/20 History hydrALAZINE [Apresoline] 25 mg PO TID 09/02/16 05/05/20 History Sertraline HCl 25 mg PO DAILY 03/03/17 05/05/20 History Acetaminophen [Tylenol Regular 650 mg PO Q4H PRN tab 09/27/18 05/05/20 Rx Strength] HumaLOG [HumaLOG Vial] 3 units SC TID-WM vial 11/26/19 05/05/20 Rx levETIRAcetam [Keppra] 500 mg PO BID #0 tab 11/26/19 05/05/20 Rx Diphenoxylate HCl/Atropine 2 tab PO TID PRN #60 tab 02/19/20 05/05/20 Rx [Lomotil] Aspirin [Ecotrin Low Strength] 81 mg PO DAILY 02/27/20 05/05/20 History Dextrose 50% 25 gm IVP PRN PRN syringe 03/12/20 05/05/20 Rx Insulin Glargine [Lantus Vial] 15 units SC QAM #1 vial 03/12/20 05/05/20 Rx - History PMHx: -ESRD on hemodialysis MWF -T1DM -HTN -HLD -Prior CVA x2 PSHx: -R BKA, 2-3 years ago FHx: -unsure of family history, reports familial hx of HTN Social: occasional ETOH, marijuana and PCP, no tobacco use - Review of Systems General: denies: fever/chills ENT: denies: nasal congestion Respiratory: reports: shortness of breath. denies: cough Cardiovascular: reports: chest pain. denies: palpitation, edema Gastrointestinal: reports: diarrhea. denies: nausea, vomiting, constipation, abdominal pain Skin: denies: rashes Musculoskeletal: denies: pain - Vital signs BP: 156/99 HR: 90 RR: 10 Pox: 100% on NC Wt: 71.8kg - Physical Exam Constitutional: NAD HEENT: normocephalic and atraumatic Chest: no-tender to palpation Heart: RRR Lungs: no respiratory distress, no rales/rhonchi, no wheezing Abdomen: soft, non-tender, bowel sounds present -Musculoskeletal: R BKA Skin: no rash/lesions, capillary refill <2 seconds, no jaundice Psychiatric: normal mood and affect FMR H&P: Results - Labs Result Diagrams: 05/04/20 20:59 05/05/20 08:49 Lab results: WBC 5.3 thou/uL (4.8-10.8) 05/04/20 20:59 Hgb 12.8 g/dL (14.0-18.0) L 05/04/20 20:59 Hct 39.4 % (42.0-52.0) L 05/04/20 20:59 MCV 90.0 fL (78.0-98.0) 05/04/20 20:59 Plt Count 145 thou/uL (130-400) 05/04/20 20:59 Neutrophils % 68.3 % (42.0-75.0) 05/04/20 20:59 Sodium 140 mmol/L (136-145) 05/04/20 20:59 Potassium 5.5 mmol/L (3.5-5.1) H 05/04/20 20:59 Chloride 97 mmol/L (98-107) L 05/04/20 20:59 Carbon Dioxide 24 mmol/L (22-29) 05/04/20 20:59 BUN 72 mg/dL (8.9-20.6) H 05/04/20 20:59 Creatinine 11.75 mg/dL (0.7-1.3) H 05/04/20 20:59 Glucose 131 mg/dL (70-105) H 05/04/20 20:59 Calcium 8.2 mg/dL (7.8-10.44) 05/04/20 20:59 Total Bilirubin 0.4 mg/dL (0.2-1.2) 05/04/20 20:59 AST 94 U/L (5-34) H 05/04/20 20:59 ALT 74 U/L (8-55) H 05/04/20 20:59 Alkaline Phosphatase 141 U/L (40-110) H 05/04/20 20:59 CK-MB (CK-2) 3.3 ng/mL (0-6.6) 05/04/20 20:59 Serum Total Protein 7.0 g/dL (6.0-8.3) 05/04/20 20:59 Albumin 3.7 g/dL (3.5-5.0) 05/04/20 20:59 FMR H&P: A/P - Problem List (1) Diabetes mellitus type 1 Status: Chronic Code(s): E10.9 - TYPE 1 DIABETES MELLITUS WITHOUT COMPLICATIONS (2) Diarrhea Status: Chronic Code(s): R19.7 - DIARRHEA, UNSPECIFIED (3) Drug abuse, phencyclidine Status: Chronic Code(s): F16.10 - HALLUCINOGEN ABUSE, UNCOMPLICATED (4) ESRD (end stage renal disease) on dialysis Status: Chronic Code(s): N18.6 - END STAGE RENAL DISEASE; Z99.2 - DEPENDENCE ON RENAL DIALYSIS (5) HLD (hyperlipidemia) Status: Chronic Code(s): E78.5 - HYPERLIPIDEMIA, UNSPECIFIED (6) Hypertension Status: Chronic Code(s): I10 - ESSENTIAL (PRIMARY) HYPERTENSION Qualifiers: Hypertension type: essential hypertension Qualified Code(s): I10 - Essential (primary) hypertension (7) Marijuana abuse, continuous Status: Chronic Code(s): F12.10 - CANNABIS ABUSE, UNCOMPLICATED (8) Hyperkalemia Status: Acute Code(s): E87.5 - HYPERKALEMIA (9) Elevated liver enzymes Status: Acute Code(s): R74.8 - ABNORMAL LEVELS OF OTHER SERUM ENZYMES - Plan ## ESRD on hemodialysis -unable to complete outpatient dialysis, will dialyze tonight -Nephro: Dr. Gonzalez ## Chronic Diarrhea -previous admission 03/10/20 positive C. diff Ag, negative PCR -C diff assay ordered -if CDI present, will treat accordingly -on lomitol at home--will hold -can also consider organic vs. functional causes as well as w/u for malabsorption issues, prior stool studies have been w/u and been negative ## Large R pleural effusion -cxr showed enlarging effusion since 03/22 now causing R lung atelectasis -repeat CXR in AM, after dialysis ## Hyperkalemia -K @ 5.5 -no EKG changes -dialysis today -re check CMP in AM ## Elevated Transaminases -AST/ALT = 94/74 -CMP in AM ## Type 1 DM -mild SSI -home med: lantus 15U qAM, restarted -monitor glucose ## HTN -home meds: hydralyzine 25mg TID, amlodipine 10mg, restarted ## Depression/Anxiety -home med: sertraline 25mg, restarted ## Drug Abuse -MJ and PCP abuse -counseled with patient VTE: Heparin Diet: CC PCP: Arlen Dispo: admit to observation, expected length of stay < 48 hours will dialyze tonight. Contact: Dread (Dad): [phone] R H&P: Upper Level - Plan Date/Time: 05/05/20 0101 ITerra, have evaluated this patient and agree with findings/plan as outlined by music intern resident. Pertinent changes/additions are listed here. 39 yo M presents for volume overload, chronic diarrhea presents after missed dialysis appt. He did not go to dialysis today because of frequent watery stools that have caused issues with his dialysis treatments. Taken Imodium daily to try to suppress frequency. Diarrhea is unchanged to prior. Has had this for at least a year with also positive Cdiff Ag on 01/29 and 03/10. He said he completed antibiotic course in February but with no improvement in stools. Consideration for diabetic induced chronic diarrhea in past. He reports some SOB though this has improved since being in the ED. Denies CP, palpitations, cough. Notes BG in 30s this am after administering insulin and not eating. He is to get dialysis tx soon. PE: Gen: NAD, resting in bed Heart: RRR Lungs: decreased breath sounds at bases, no wheeze or rhonchi Ext: 1+ pitting edema BLE Volume overload 2/2 missed dialysis -Carlos Conde notified from ED with plan for HD tonight -K+ of 5.5, on 2L NC. Trop 0.095. -CXR with large R effusion causing atelectasis and increased compared to prior, cardiomegaly -Plan for dialysis treatment and then will repeat CXR in am to see if effusion has improved Indeterminate troponin -No chest pain, continue to trend, EKG no ST elevation or depression, RAD and low voltage Elevated liver enzymes -AST 94, ALT 74. Elevated compared to prior. Could be 2/2 congestion in setting of volume overload. Will recheck CMP in am. If persistently elevated could be worked up outpatient Pleural effusion - as above Chronic diarrhea -C diff antigen+ 01/29 and 03/10, s/p treatment multiple time per patient with no improvement in diarrhea. Other + antigen tests in 2019 but toxin is often negative. Consider other etiologies for chronic diarrhea. -C diff collected on admission, pending result -Most recent stool cultures negative 01/29 -On chart review, difficult to see extent of workup. No known GI consult on chart review. Could be 2/2 diabetic complications. Celiac ruled out in 2018. Would benefit from further outpatient workup/management. Anemia of chronic disease -Hgb 12.8, baseline overall improving on chart review Dispo: admit for observation for missed dialysis appt, expected stay <48h. Would benefit to have diarrhea better controlled as this will likely be cause for future missed appts. Addendum - Attending - Attending Attestation Date/Time: 05/05/20 1028 I personally evaluated the patient and discussed the management with Dr. Pearce/ Grace. I agree with the History, Examination, Assessment and Plan documented above with any addition or exceptions noted below. 39 yo AAM pmh ESRD. Missed multiple rounds of HD found to be fluid overloaded. felt better after HD. Had CP prior to admission. Had large right pleural effusion that likely needs to be drained. Had NM stress test ordered but patient left AMA before evaluation and treatment could be completed.
[2020-05-05] MEDS ORDERED: Diphenoxylate HCl/Atropine Tablet PO PRN (03:12)
[2020-05-05 03:26] LABS: Troponin I 0.072 ng/mL (< 0.028)
[2020-05-05 03:34] LABS: Anion Gap 25 mmol/L (10-20); BUN (Urea Nitrogen) 72 mg/dL (8.9-20.6); Calc. Creatinine Clearance 0 mL/min (70-130); Calcium 8.2 mg/dL (7.8-10.44); Carbon Dioxide 22 mmol/L (22-29); Chloride 98 mmol/L (98-107); Estimated GFR-MDRD 6; Glucose 105 mg/dL (70-105); Potassium 4.8 mmol/L (3.5-5.1); Sodium 140 mmol/L (136-145)
[2020-05-05] MEDS ORDERED: Loperamide HCl 2 MG CAP PO PRN (06:39)
--- NOTE | 2020-05-05 07:52 | RAD ---
SINGLE VIEW CHEST: Date: 05/05/2020 COMPARISON: 05/04/2020. HISTORY: Pleural effusion. FINDINGS: Single view of the chest shows normal sized cardiomediastinal silhouette. There is a moderate to larg e right pleural effusion. No left pleural effusion is seen. A stent is seen in both arms. IMPRESSION: Moderate to large right pleural effusion. POS: EAA
[2020-05-05] MEDS ORDERED: HumaLOG 300 UNITS/3 ML VIAL SC SCH (08:00)
[2020-05-05] MEDS ORDERED: Aspirin 81 mg Enteric Coated Tablet PO SCH (09:00)
[2020-05-05] MEDS ORDERED: Heparin 5,000 UNITS/ML VIAL SC SCH (09:00)
[2020-05-05] MEDS ORDERED: Insulin Glargine 15 UNITS in Pre-Filled Syringe 1 EACH SC SCH (09:00)
[2020-05-05] MEDS ORDERED: Cinacalcet HCl 30 MG TAB PO SCH (09:00)
[2020-05-05] MEDS ORDERED: hydrALAZINE 25 MG TAB PO SCH (09:00)
[2020-05-05] MEDS ORDERED: Amlodipine 10 MG TAB PO SCH (09:00)
[2020-05-05 09:40] LABS: ALT (SGPT) 71 U/L (8-55); AST (SGOT) 69 U/L (5-34); Albumin 3.6 g/dL (3.5-5.0); Alkaline Phosphatase 139 U/L (40-110); Anion Gap 24 mmol/L (10-20); BUN (Urea Nitrogen) 40 mg/dL (8.9-20.6); Bilirubin, Total 0.4 mg/dL (0.2-1.2); Calc. Creatinine Clearance 0 mL/min (70-130); Calcium 8.8 mg/dL (7.8-10.44); Carbon Dioxide 24 mmol/L (22-29); Chloride 93 mmol/L (98-107); Estimated GFR-MDRD 9; Globulin 3.5 g/dL (2.4-3.5); Glucose 236 mg/dL (70-105); Potassium 4.3 mmol/L (3.5-5.1); Protein, Total 7.1 g/dL (6.0-8.3); Sodium 137 mmol/L (136-145)
[2020-05-05 09:58] LABS: HBSAg Index 0.12 S/CO (0-0.99); Hep B Core Total Ab Non-Reactive (NonReactive); Hep B Core Total Index 0.06 S/CO (0-0.79); Hep B Surf Ag Non-Reactive S/CO (NonReactive); Hep C IgG Ab Non-Reactive (NonReactive); Hep C Index 0.05 S/CO (0-0.79)
--- NOTE | 2020-05-05 11:44 | CON ---
DATE OF CONSULTATION: 05/04/2020 TIME OF CONSULTATION: 11 p.m. in the emergency room. REASON FOR CONSULTATION: Hyperkalemia. HISTORY OF PRESENT ILLNESS: A 39-year-old gentleman presented to the hospital after missing dialysis and was noted to have hyperkalemia as well as dyspnea and shortness of breath. The patient denies any nausea, vomiting, or chest pain. PAST MEDICAL HISTORY: Significant for end-stage renal disease, hypertension, multiple hospitalizations, anemia, amputation, tunneled dialysis catheter, AV fistula, hyperkalemia, history of CVA, history of right BKA. SOCIAL HISTORY: No alcohol use, but has used drugs in the past. ALLERGIES: REVIEWED. MEDICATIONS: Home medication list reviewed. Hospital medication list reviewed. REVIEW OF SYSTEMS: Fifteen-point review of system was performed and negative except for positive noted above. HEENT: Eyes intact, no diplopia. Ears: No hearing loss or earache. Nose: No discharge or bleeding. CHEST: No cough or phlegm. ABDOMEN: No nausea or vomiting. GENITOURINARY: No hematuria. No Clifton catheter. MUSCULOSKELETAL: No low back pain. No joint swelling or pain. NEUROLOGICAL: No syncope. No seizures. SKIN: No complaints of rash or itching. PSYCHIATRIC: No depression. CONSTITUTIONAL: No weight loss or loss of appetite. LABORATORY DATA: Shows potassium 5.5. ASSESSMENT AND PLAN: 1. Stage 6 chronic kidney disease with volume overload. Plan urgent dialysis. The nurse was called. 2. Anemia, stable. 3. Medication based on GFR, appropriate. Job ID: [id number]
--- NOTE | 2020-05-05 11:58 | PRG ---
DATE OF SERVICE: 05/05/2020 SUBJECTIVE: A 39-year-old gentleman being seen for end-stage renal disease. The patient denied any nausea, vomiting, or chest pain. OBJECTIVE: General: The patient is awake and alert. Vital Signs: Afebrile, pulse 75, breathing at 16, blood pressure 130/70. HEENT: Head normocephalic and atraumatic. Eyes intact, no ulcers. Nose intact, no ulcers. Ears intact, no ulcers. Neck: Supple. No JVD. Chest: Symmetrical and clear. Cardiovascular: Shows S1 and S2, no rub, no murmur. Gastrointestinal: Abdomen is soft, bowel sounds positive. Extremities: Show no edema or ulcers. Skin: Shows no rash or petechiae. Musculoskeletal: Shows no joint swelling or stiffness. Genitourinary: Shows no Clifton or CVA tenderness. Neurologic: Motor intact. Cranial nerves intact. LABORATORY DATA: Reviewed. ASSESSMENT AND PLAN: 1. Stage 6 chronic kidney disease. Continue hemodialysis per schedule. 2. Hypertension, stable. 3. Anemia, stable. 4. Medication based on GFR appropriate. Job ID: [id number]
== END 2020-05-05 12:15 | disposition home or self-care (01) ==
LOC: ERS 20:24 → ERHOLD 23:45
PROVIDERS: ADMIT Family Medicine; ATTEND Family Medicine
DX: E87.5 Hyperkalemia (principal); E87.70 Fluid overload, unspecified; I12.0 Hypertensive chronic kidney disease with stage 5 chronic kidney disease or end stage renal disease; E10.22 Type 1 diabetes mellitus with diabetic chronic kidney disease; N18.6 End stage renal disease; D63.1 Anemia in chronic kidney disease; K52.9 Noninfective gastroenteritis and colitis, unspecified; E78.5 Hyperlipidemia, unspecified; J90 Pleural effusion, not elsewhere classified; F41.9 Anxiety disorder, unspecified; F32.9 Major depressive disorder, single episode, unspecified; F19.10 Other psychoactive substance abuse, uncomplicated; Z79.4 Long term (current) use of insulin; Z79.82 Long term (current) use of aspirin; Z79.899 Other long term (current) drug therapy; Z86.73 Personal history of transient ischemic attack (TIA), and cerebral infarction without residual deficits; Z88.0 Allergy status to penicillin; Z99.2 Dependence on renal dialysis
CPT/HCPCS: 36415; 71045; 80048; 80053; 82553; 84484; 85025; 86704; 86803; 87340; 90935; 93005; 94760; G0257; G0378

== ENCOUNTER 2020-05-23 11:02 | Inpatient (IN) | payer MEDICARE, MEDICAID, OTHER ==
[~2020-05-23 11:02] MED LIST changes: -Heparin 1,000 UNITS/ML VIAL ONE; +Heparin 10,000 UNITS/ 10 ML VIAL ONE
--- NOTE | 2020-05-23 11:53 | RAD ---
PORTABLE CHEST: Date: 06/01/2020 PROVIDED CLINICAL HISTORY: Altered mental status. FINDINGS: Comparison with 05/05/2020. Opacification of the majority of the right hemithorax is redemonstrated, similar to prior. The left l nancy appears clear. Prominence of the pulmonary vasculature and pulmonary interstitium are redemonstra abran. Vascular stent material overlies the left chest. There is no evidence for pneumothorax. IMPRESSION: Similar radiographic appearance of the chest. POS: PHYLLIS
[2020-05-23 12:29] LABS: #Basophils 0.1 thou/uL (0.0-0.2); #Lymphocytes 1.1 thou/uL (1.20-3.40); #Monocytes 0.4 thou/uL (0.11-0.59); #Neutrophils 4.1 thou/uL (1.40-6.50); %Basophils 1.1 % (0.0-1.0); %Eosinophils 0.3 % (0.0-10.0); %Lymphocytes 18.9 % (21.0-51.0); %Monocytes 7.3 % (0.0-10.0); %Neutrophils 72.4 % (42.0-75.0); Anisocytosis SLIGHT = 6-15 cells (100X) (0-5/hpf); Hemoglobin 11.6 g/dL (14.0-18.0); MDiff Complete? YES; Mean Corpuscular HGB CONC 32.3 g/dL (32.0-36.0); Mean Corpuscular Hemoglobin 29.7 pg (27.0-31.0); Mean Corpuscular Volume 91.9 fL (78.0-98.0); Mean Platelet Volume 12.9 fL (7.4-10.4); Platelet Count 93 thou/uL (130-400); Platelet Morphology Comment Appears Decreased; Poikilocytosis SLIGHT = 6-15 cells (100X) (0-5/hpf); RBC Distribution Width 16.5 % (11.5-14.5); Red Blood Cell (RBC) Count 3.92 mill/uL (4.70-6.10); White Blood Cell (WBC) Count 5.7 thou/uL (4.8-10.8)
[2020-05-23 12:33] LABS: ALT (SGPT) 12 U/L (8-55); AST (SGOT) 10 U/L (5-34); Albumin 3.7 g/dL (3.5-5.0); Alkaline Phosphatase 111 U/L (40-110); BUN (Urea Nitrogen) 117 mg/dL (8.9-20.6); Bilirubin, Total 0.4 mg/dL (0.2-1.2); Calc. Creatinine Clearance 0 mL/min (70-130); Calcium 7.9 mg/dL (7.8-10.44); Chloride 91 mmol/L (98-107); Estimated GFR-MDRD 4; Globulin 3.3 g/dL (2.4-3.5); Glucose 503 mg/dL (70-105); Sodium 130 mmol/L (136-145)
[2020-05-23 12:43] LABS: Carbon Dioxide Less than 8 mmol/L (22-29); Phosphorus 12.9 mg/dL (2.3-4.7); Potassium 7.5 mmol/L (3.5-5.1)
[2020-05-23] MEDS ORDERED: Calcium Chloride 1 GM/10 ML Abboject SYRINGE ONE ×2 (13:14→16:40)
[2020-05-23] MEDS ORDERED: Sodium Bicarb 50 MEQ/50 ML Abboject 8.4% SYRINGE ONE (13:14)
[2020-05-23] MEDS ORDERED: Sodium Bicarbonate 2.5 MEQ/5 ML VIAL ONE (13:14)
--- NOTE | 2020-05-23 13:15 | PDOC.FPRHP ---
- History of Present Illness Chief Complaint: DKA, missed dialysis History of Present Illness: Patient is a 39yo M with a PMH of ESRD on HD (MWF), DM1, HTN, HLD, prior CVA x2 , drug abuse, depression/anxiety who presents in DKA. Patient is non cooperative with questioning and exam. He missed dialysis all this week. When asked if he stopped taking his insulin he said "I guess". He states he did not go to dialysis this week because he "just doesn't want to do it anymore." ER doctor told me patient stated he wants to and that is why he did not go to dialysis. He endorses nausea and was vomiting before he came to the ED. Denies abdominal pain, NAJERA, vision changes, CP, SOB, changes in bowel movements, fever, recent illness. ED Course: patient received 2amp sodium bicarb, 1g calcium chloride, 16U Novolin, started on insulin gtt - Allergies/Adverse Reactions Allergies Allergy/AdvReac Type Severity Reaction Status Date / Time Penicillins Allergy Unknown Verified 03/10/20 19:58 - Home Medications Medication Instructions Recorded Confirmed Type Sevelamer Carbonate [Renvela] 2,400 mg PO TID-WM 09/08/15 05/05/20 History Amlodipine Besylate [amLODIPine 10 mg PO DAILY 09/02/16 05/05/20 History Besylate] Cinacalcet HCl [Sensipar] 60 mg PO DAILY 09/02/16 05/05/20 History hydrALAZINE [Apresoline] 25 mg PO TID 09/02/16 05/05/20 History Sertraline HCl 25 mg PO DAILY 03/03/17 05/05/20 History Acetaminophen [Tylenol Regular 650 mg PO Q4H PRN tab 09/27/18 05/05/20 Rx Strength] HumaLOG [HumaLOG Vial] 3 units SC TID-WM vial 11/26/19 05/05/20 Rx levETIRAcetam [Keppra] 500 mg PO BID #0 tab 11/26/19 05/05/20 Rx Diphenoxylate HCl/Atropine 2 tab PO TID PRN #60 tab 02/19/20 05/05/20 Rx [Lomotil] Aspirin [Ecotrin Low Strength] 81 mg PO DAILY 02/27/20 05/05/20 History Dextrose 50% 25 gm IVP PRN PRN syringe 03/12/20 05/05/20 Rx Insulin Glargine [Lantus Vial] 15 units SC QAM #1 vial 03/12/20 05/05/20 Rx - History PMHx: -ESRD on hemodialysis MWF -T1DM -HTN -HLD -Prior CVA x2 -anxiety/depression PSHx: -BKA, 2-3 years ago FHx: -unsure of family history, reports familial hx of HTN Social: occasional ETOH, marijuana and PCP, no tobacco use - Review of Systems General: reports: fatigue. denies: fever/chills Eyes: denies: eye pain, vision changes ENT: denies: nasal congestion, rhinorrhea Respiratory: denies: cough, shortness of breath Cardiovascular: denies: chest pain, palpitation Gastrointestinal: reports: nausea, vomiting Genitourinary: denies: incontinence, dysuria Skin: denies: rashes, jaundice Musculoskeletal: denies: tenderness, swelling Neurological: denies: syncope, seizure Psychological: denies: anxiety, depression - Vital signs BP: 114/63 HR: 79 RR: 18 Tmax: Pox: 96% on RA Wt: 72.6kg - Physical Exam -Constitutional: patient is drowsy, uncooperative during exam HEENT: normocephalic and atraumatic, EOMI, no scleral icterus Neck: trachea midline, no JVD Chest: no-tender to palpation Heart: RRR, normal S1/S2, pulses present -Heart: 1+ pitting edema LE Lungs: CTAB, no respiratory distress, no wheezing Abdomen: soft, non-tender, bowel sounds present Musculoskeletal: normal tone, ROM grossly normal -Musculoskeletal: R BKA Neurological: no focal deficit, normal sensation -Skin: dry skin/scales on lower extremities and on elbows and forearms Heme/Lymphatic: no unusual bruising or bleeding -Psychiatric: hard to assess psychiatric exam. patient is uncooperative and guarded. State he just does not want to do dialysis anymore and understands that means he will . appears to be A&Ox3. FMR H&P: Results - Labs Result Diagrams: 05/23/20 12:07 05/24/20 08:55 Lab results: WBC 5.7 thou/uL (4.8-10.8) 05/23/20 12:07 Hgb 11.6 g/dL (14.0-18.0) L 05/23/20 12:07 Hct 36.0 % (42.0-52.0) L 05/23/20 12:07 MCV 91.9 fL (78.0-98.0) 05/23/20 12:07 Plt Count 93 thou/uL (130-400) L 05/23/20 12:07 Neutrophils % 72.4 % (42.0-75.0) 05/23/20 12:07 Sodium 130 mmol/L (136-145) L 05/23/20 12:07 Potassium 7.5 mmol/L (3.5-5.1) H* 05/23/20 12:07 Chloride 91 mmol/L (98-107) L 05/23/20 12:07 Carbon Dioxide Less than 8 mmol/L (22-29) L* 05/23/20 12:07 BUN 117 mg/dL (8.9-20.6) H 05/23/20 12:07 Creatinine 16.16 mg/dL (0.7-1.3) H 05/23/20 12:07 Glucose 503 mg/dL (70-105) H 05/23/20 12:07 Calcium 7.9 mg/dL (7.8-10.44) 05/23/20 12:07 Total Bilirubin 0.4 mg/dL (0.2-1.2) 05/23/20 12:07 AST 10 U/L (5-34) 05/23/20 12:07 ALT 12 U/L (8-55) 05/23/20 12:07 Alkaline Phosphatase 111 U/L (40-110) H 05/23/20 12:07 Serum Total Protein 7.0 g/dL (6.0-8.3) 05/23/20 12:07 Albumin 3.7 g/dL (3.5-5.0) 05/23/20 12:07 - EKG Interpretation EKG: no ST changes noted. No peaked T waves. FMR H&P: A/P - Plan DKA -Type 1 diabetic -on home insulin, lantus 15U qAM -DKA protocol in place -AGAP 31, glucose 503, AGAP 31 -monitor glucose, BMP q4H -B-hydroxybutarate 12.16 ESRD on hemodialysis -on MWF, missed this week -Nephro, Dr. Gonzalez, on board; appreciate the recs. - plan for dialysis today - re asses after dialysis Hyperkalemia -K 7.5 -no EKG changes -dialysis today -re check BMP q4H -continue to monitor Hyponatremia -Na 130 -BMP q4H -continue to monitor Hyperphosphatemia -12.9 today -dialysis today -recheck BMP q4H -continue to monitor Chronic Diarrhea -aware, will investigate if needed HTN -aware, will restart home meds Depression/Anxiety -aware, will restart home meds Drug Abuse -Marijuana and PCP abuse HLD -aware, will restart home meds VTE: Heparin Diet: NPO PCP: Arlen Dispo: admit to inpatient ICU, palliative consult to get goals of care Right fem central catheter in place. Contact: Dread (Dad): [phone] FMR H&P: Upper Level - Plan Date/Time: 05/23/20 1314 ITerra, have evaluated this patient and agree with findings/plan as outlined by culinary internship resident. Pertinent changes/additions are listed here. 39 yo M presents to ED after missing dialysis. He reports having some CP, SOB that has improved since hes been in ED. History difficult to obtain. He has not gone to dialysis for 1 week, does not give reason. Cannot remember the last time he took his insulin. He says he is tired of it. Nursing working on getting better IV access at bedside. -1 amp bicarb, insulin drip, CaCl in ED PE: 112/59, 80,16, 98% on RA Gen: NAD, resting in bed, will follow commands, answer questions appropriately though with shortened responses, lethargic and not at baseline mentation, slightly confused HEENT: eyelids swollen b/l, MM dry Heart: RRR, no murmur, cap refill <2 secs Lungs: auscultated anteriorly, decreased breath sounds, exam limited Ext: 1+ pitting edema LLE, R BKA Anion gap metabolic acidosis 2/2 DKA -Insulin gtt started in ED, DKA protocol to start -Initial gap 30, bicarb <8, B-hydroxy 12, glucose 503 -VBG in ED pH 7.0/33.5/230 -continue to trend with q4h BMP -Nephro recommended bicarb prior to HD AMS 2/2 above Severe Hyperkalemia -2/2 missed HD. 7.5 on admission. -Dr. Gonzalez consulted from ED -Plan for urgent HD today, no EKG changes Electrolyte abnormalities -Hyperphosphatemia, hypermagnesemia, will recheck after dialysis. Presume that many electrolyte abnormalities will be corrected post treatment Hx pleural effusion -CXR today unchanged compared to prior. R hemithorax opacification, prominent pulm vasculature. Chronic medical problems per culinary internship note Patient has expressed to both ER physician and our team that he is tired of treatment. Palliative care consult and would be beneficial to further discuss goals of care when patient a bit less confused. Closely monitor serial BMPs overnight. Central line placed in ED d/t difficulty obtaining IV access. Addendum - Attending - Attending Attestation Date/Time: 05/23/20 1420 I personally evaluated the patient and discussed the management with Dr. Saul. I agree with the History, Examination, Assessment and Plan documented above with any addition or exceptions noted below. The patient is well known to myself. He missed dialysis all weak and presented with multiple electrolyte abnormalities and dka as mentioned above. Nephrology was consulted and will proceed with emergent dialysis. Pt will be admitted to icu/imcu depending on bed availability. Pt is getting a central line as no iv access could be established. DKA protocol has been started. I anticipate most of this will correct with dialysis. Pt was counseled on compliance with dialysis and insulin regimen. He did mention to the team that he is tired of all of this including dialysis. Will continue the conversation in the morning when confusion improves.
[2020-05-23] MEDS ORDERED: Insulin Regular 300 UNITS/3 ML VIAL ONE (13:16)
[2020-05-23] MEDS ORDERED: HUMULIN R 100 UNITS in Sodium Chloride 0.9% 99 ML IVPB SCH (13:30)
[2020-05-23] MEDS ORDERED: Ondansetron PF 4 MG/2 ML Vial IVP PRN (13:38)
[2020-05-23] MEDS ORDERED: Dextrose 5 %-0.45 % NaCl 1,000 ML IV PRN (13:38)
[2020-05-23] MEDS ORDERED: NS 0.9% w/ 20 MEQ KCL 1,000 ML IV PRN ×2 (13:38)
[2020-05-23] MEDS ORDERED: Electrolyte Replacement Protoc 1 EACH EACH IVPB PRN (13:38)
[2020-05-23] MEDS ORDERED: Sodium Chloride 0.9% 1,000 ML IV PRN ×4 (13:38)
[2020-05-23] MEDS ORDERED: D5 1/2 NS w/20 mEq KCL 1,000 ML IV PRN (13:38)
--- NOTE | 2020-05-23 13:42 | CON ---
DATE OF CONSULTATION: REASON FOR CONSULTATION: Hyperkalemia. HISTORY OF PRESENTING ILLNESS: This is a very pleasant, 39-year-old gentleman, who missed dialysis for more than a week, presented to the hospital with severe hyperkalemia. The patient denies any nausea, vomiting, or chest pain. PAST MEDICAL HISTORY: End-stage kidney disease, hypertension, anemia, amputation, history of AV fistula, hyperkalemia, history of CVA, history of right BKA. SOCIOECONOMIC HISTORY: Drug use. ALLERGIES: REVIEWED. HOME MEDICATIONS: List reviewed. HOSPITAL MEDICATIONS: List reviewed. REVIEW OF SYSTEMS: A 15-point review of system was performed, negative except for positive noted above. HEENT: Eyes intact, no diplopia. Ears: No hearing loss or earache. Nose: No discharge or bleeding. Chest: No cough or phlegm. Abdomen: No nausea or vomiting. Genitourinary: No hematuria. No Clifton catheter. Musculoskeletal: No low back pain. No joint swelling or pain. Neurological: No syncope. No seizures. Skin: No complaints of rash or itching. Psychiatric: No depression. Constitutional: No weight loss or loss of appetite. PHYSICAL EXAMINATION: GENERAL: The patient is awake and alert. VITAL SIGNS: Afebrile, pulse 75, breathing at 16, blood pressure 130/70. HEENT: Head normocephalic and atraumatic. Eyes intact, no ulcers. Nose intact, no ulcers. Ears intact, no ulcers. Neck: Supple. No JVD. Chest: Symmetrical and clear. Cardiovascular: Shows S1 and S2, no rub, no murmur. Gastrointestinal: Abdomen is soft, bowel sounds positive. Extremities: Show no edema or ulcers. Skin: Shows no rash or petechiae. Musculoskeletal: Shows no joint swelling or stiffness. Genitourinary: Shows no Clifton or CVA tenderness. Neurologic: Motor intact. Cranial nerves intact. LABORATORY DATA: Reviewed. ASSESSMENT AND PLAN: 1. Stage 6 chronic kidney disease, plan urgent dialysis. 2. Hyperkalemia, plan dialysis. 3. Metabolic acidosis. We will recommend sodium bicarbonate until dialysis is available. Dialysis nurse was called. Job ID: [id number]
[2020-05-23] MEDS ORDERED: HUMULIN R 100 UNITS in Sodium Chloride 0.9% 100 ML IVPB SCH (13:45)
[2020-05-23 13:59] LABS: Bicarbonate (HCO3v) 8.3 mmol/L (22.0-28.0); CO2 Tension (PvCO2) 33.5 mmHg (40.0-50.0); Calcium, Ionized 0.85 mmol/L (See Comments:); Chloride 105 mmol/L (98-107); Hemoglobin - Calc 11.7 g/dL (14.0-18.0); Potassium 6.6 mmol/L (3.5-5.1); Sodium 122 mmol/L (138-145); T. Carbon Dioxide 9.3 mmol/L (22.0-28.0); vO2 Saturation-calc 99.4 % (60.0-85.0)
[2020-05-23] MEDS ORDERED: Sodium Bicarb 50 MEQ/50 ML VIAL ONE ×2 (14:05→16:40)
[2020-05-23 14:14] LABS: BUN (Urea Nitrogen) 120 mg/dL (8.9-20.6); Calc. Creatinine Clearance 0 mL/min (70-130); Calcium 7.9 mg/dL (7.8-10.44); Chloride 91 mmol/L (98-107); Estimated GFR-MDRD 4; Glucose 507 mg/dL (70-105); Sodium 131 mmol/L (136-145)
[2020-05-23 14:17] LABS: Carbon Dioxide Less than 8 mmol/L (22-29); Potassium 7.2 mmol/L (3.5-5.1)
[2020-05-23] MEDS ORDERED: Diazepam 5 MG TAB ONE (16:10)
[2020-05-23] MEDS ORDERED: Midazolam HCl 2 mg/2 ml Vial ONE (16:12)
[2020-05-23 18:27] LABS: Anion Gap 38 mmol/L (10-20); BUN (Urea Nitrogen) 123 mg/dL (8.9-20.6); Calc. Creatinine Clearance 0 mL/min (70-130); Calcium 8.2 mg/dL (7.8-10.44); Carbon Dioxide 12 mmol/L (22-29); Chloride 93 mmol/L (98-107); Estimated GFR-MDRD 4; Glucose 471 mg/dL (70-105); Potassium 5.7 mmol/L (3.5-5.1); Sodium 137 mmol/L (136-145)
[2020-05-23] MEDS ORDERED: Norepinephrine 8 MG/0.9% NS 250 ML IVPB PRN (19:58)
[2020-05-23] MEDS ORDERED: Norepinephrine 8 MG/0.9% NS 0 ML ONE (20:15)
[2020-05-23] MEDS: Heparin 5,000 UNITS/ML VIAL SC SCH ×2 (20:31)
[2020-05-23] MEDS: Nicotine 14 MG PATCH TD SCH (20:31)
[2020-05-23] MEDS ORDERED: Lidocaine 1% w/Epinephrine 1:100K 20 ML VIAL ONE (21:05)
[2020-05-23 23:46] LABS: Chloride 96 mmol/L (98-107); Potassium 4.1 mmol/L (3.5-5.1); Sodium 139 mmol/L (136-145)
[2020-05-23 23:47] LABS: Calcium 8.4 mg/dL (7.8-10.44); Glucose 227 mg/dL (70-105)
[2020-05-23 23:49] LABS: Anion Gap 26 mmol/L (10-20); Carbon Dioxide 21 mmol/L (22-29)
[2020-05-23 23:51] LABS: BUN (Urea Nitrogen) 78 mg/dL (8.9-20.6); Calc. Creatinine Clearance 9 mL/min (70-130); Estimated GFR-MDRD 6
--- NOTE | 2020-05-24 00:25 | OP ---
DATE OF PROCEDURE: 05/23/2020 PREOPERATIVE DIAGNOSIS: ___Acute renal failure. POSTOPERATIVE DIAGNOSIS: __Acute renal failure. PROCEDURE PERFORMED: Left femoral Trialysis catheter placement. ANESTHESIA: Local. ESTIMATED BLOOD LOSS: Minimal. COMPLICATION: None. DESCRIPTION OF PROCEDURE: The left groin was shaved, prepped and draped in a sterile fashion. Local anesthetic was infiltrated over the left femoral vein. Femoral vein was cannulated using a Seldinger needle. Wire was passed under no tension. Wire was used to guide to dilate the femoral vein Trialysis catheter to its fullest extent, sewn in place using closed nylon and connector. All ports were flushed and kristal blood without difficulties, just flushed with a saline solution. Sterile dressings were placed. The patient tolerated the procedure well. Job ID: [id number] [facility]
[2020-05-24 05:14] LABS: Anion Gap 19 mmol/L (10-20); BUN (Urea Nitrogen) 53 mg/dL (8.9-20.6); Calc. Creatinine Clearance 11 mL/min (70-130); Calcium 8.2 mg/dL (7.8-10.44); Carbon Dioxide 27 mmol/L (22-29); Chloride 97 mmol/L (98-107); Estimated GFR-MDRD 8; Glucose 99 mg/dL (70-105); Potassium 4.5 mmol/L (3.5-5.1); Sodium 138 mmol/L (136-145)
--- NOTE | 2020-05-24 06:12 | PDOC.FM ---
- Subjective Subjective: Pt states he has improved since being at the hospital. He received emergent dialysis yesterday. He stated yesterday he did not want to live but today he wants to keep fighting. He does not go to dialysis bc of diarrhea and it makes him feel uncomfortable. This has been a recurrent theme for him over the previous year. He denies abdominal pain, N/V, and endorsed an appetite. He states his mentation is at baseline. He has friends and family he wants to keep living for. He denies SI/HI at this time. - Objective Vital Signs & Weight: Vital Signs (12 hours) Temp Pulse Ox 05/24/20 04:00 97.6 F 05/24/20 01:45 100 05/24/20 00:00 97.8 F 05/23/20 22:53 97 05/23/20 22:00 97.1 F L 05/23/20 20:00 96.2 F L 100 Weight Weight 71.5 kg Most Recent Monitor Data Heart Rate from ECG 96 NIBP 149/97 NIBP BP-Mean 118 Respiration from ECG 18 SpO2 99 I&O: 05/22/20 05/23/20 05/24/20 06:59 06:59 06:59 Intake Total 82.2 Output Total 0 Balance 82.2 Result Diagrams: 05/23/20 12:07 05/24/20 08:55 Phys Exam - Physical Examination Constitutional: NAD HEENT: moist MMs, TM's clear Neck: no JVD, full ROM Respiratory: no wheezing, clear to auscultation bilateral Cardiovascular: RRR, no significant murmur Gastrointestinal: soft, no distention, positive bowel sounds mild tenderness to palpation Musculoskeletal: no edema, pulses present R AKA Neurological: non-focal, normal sensation Psychiatric: normal affect, A&O x 3 Skin: no rash, normal turgor Dx/Plan (1) Acute metabolic encephalopathy Code(s): G93.41 - METABOLIC ENCEPHALOPATHY Status: Acute (2) DKA (diabetic ketoacidoses) Code(s): E13.10 - OTH DIABETES MELLITUS WITH KETOACIDOSIS WITHOUT COMA Status : Acute (3) Hyperkalemia Code(s): E87.5 - HYPERKALEMIA Status: Acute (4) Anxiety and depression Code(s): F41.9 - ANXIETY DISORDER, UNSPECIFIED; F32.9 - MAJOR DEPRESSIVE DISORDER, SINGLE EPISODE, UNSPECIFIED Status: Chronic (5) Diabetes mellitus type 1 with complications Code(s): E10.8 - TYPE 1 DIABETES MELLITUS WITH UNSPECIFIED COMPLICATIONS Status: Chronic (6) Increased anion gap metabolic acidosis Code(s): E87.2 - ACIDOSIS Status: Resolved - Plan Plan: # DKA -Type 1 diabetic -on home insulin, lantus 15U qAM -DKA improved but AG still open (19)- will reassess after dialysis but is not currently on DKA protocol as he cannot receive more fluids in the setting of ESRD, currently fluid overloaded. -BMP after dialysis to assess AG # ESRD on hemodialysis -on MWF, missed this week -Nephro, Dr. Gonzalez, on board; appreciate the recs. - plan for dialysis again today # Hyperkalemia - resolved -Continue dialysis # Hyponatremia - resolved - 2/2 hyperglycemia # Hyperphosphatemia - continue dialysis Chronic Diarrhea -aware, pt needs to continue anti-diarrheal agents at the time of dialysis HTN -aware, will restart home meds Depression/Anxiety -aware, will restart home meds Drug Abuse -Marijuana and PCP abuse HLD -aware, will restart home meds VTE: Heparin Diet: Will advance after dialysis if AG closed PCP: Arlen Dispo: admit to inpatient ICU, palliative consult to get goals of care Right fem central catheter in place. Contact: Dread (Akshat): [phone] Addendum - Attending - Attending Attestation Date/Time: 05/24/20 4267 I personally evaluated the patient and discussed the management with Dr. Dubose. I agree with the History, Examination, Assessment and Plan documented above with any addition or exceptions noted below. Pt's mentation is improved this morning. He states he wants to live and continue dialysis. Pt had dialysis last night removing 1.5 liters and may have dialysis again today. Dialysis mgmt per Dr. Gonzalez. Pt still had a gap overnight but I expect this to improve with dialysis. Blood sugars stable. Counseled pt on compliance.
[2020-05-24] MEDS ORDERED: Insulin Glargine 15 UNITS in Pre-Filled Syringe 1 EACH SC SCH (09:00)
[2020-05-24] MEDS: Heparin 5,000 UNITS/ML VIAL SC SCH ×3 (09:15→20:26)
[2020-05-24 09:21] LABS: Anion Gap 21 mmol/L (10-20); BUN (Urea Nitrogen) 56 mg/dL (8.9-20.6); Calc. Creatinine Clearance 10 mL/min (70-130); Calcium 7.8 mg/dL (7.8-10.44); Carbon Dioxide 25 mmol/L (22-29); Chloride 98 mmol/L (98-107); Estimated GFR-MDRD 7; Glucose 91 mg/dL (70-105); Potassium 4.8 mmol/L (3.5-5.1); Sodium 139 mmol/L (136-145)
[2020-05-24 14:02] LABS: SARS-CoV-2 MS2 Positive; SARS-CoV-2 N Gene Negative; SARS-CoV-2 S Gene Negative; SARS-CoV-2 by NAA Not Detected (NotDetected); SARS-CoV-2 orf1ab Negative
--- NOTE | 2020-05-24 15:21 | PRG ---
DATE OF SERVICE: 05/24/2020 SUBJECTIVE: A 39-year-old gentleman being seen for end-stage renal disease. The patient denied any nausea, vomiting, or chest pain. OBJECTIVE: General: The patient is awake and alert. Vital Signs: Afebrile, pulse 75, breathing at 16, blood pressure 117/44. HEENT: Head normocephalic and atraumatic. Eyes intact, no ulcers. Nose intact, no ulcers. Ears intact, no ulcers. Neck: Supple. No JVD. Chest: Symmetrical and clear. Cardiovascular: Shows S1 and S2, no rub, no murmur. Gastrointestinal: Abdomen is soft, bowel sounds positive. Extremities: Show no edema or ulcers. Skin: Shows no rash or petechiae. Musculoskeletal: Shows no joint swelling or stiffness. Genitourinary: Shows no Clifton or CVA tenderness. Neurologic: Motor intact. Cranial nerves intact. LABORATORY DATA: Reviewed. ASSESSMENT AND PLAN: 1. Stage 6 chronic kidney disease. Continue hemodialysis. 2. Hypertension, stable. 3. Anemia, stable. We will plan for dialysis tomorrow. Job ID: [id number]
[2020-05-24] MEDS: Nicotine 14 MG PATCH TD SCH (16:27)
[2020-05-24] MEDS ORDERED: Dextrose 50% Abboject 50 ML SYRINGE IVP PRN (18:42)
[2020-05-24] MEDS ORDERED: Dextrose 5% in Water 1,000 ML IV PRN (18:42)
[2020-05-24] MEDS: HumaLOG 300 UNITS/3 ML VIAL SC PRN (20:25)
[2020-05-24] MEDS: Loperamide HCl 2 MG CAP PO PRN (22:09)
[2020-05-25] MEDS: HumaLOG 300 UNITS/3 ML VIAL SC PRN ×3 (00:02→13:29)
[2020-05-25] MEDS: Loperamide HCl 2 MG CAP PO PRN ×2 (01:56→10:55)
[2020-05-25] MEDS: Acetaminophen 325 MG TAB PO PRN ×2 (02:29→10:55)
[2020-05-25 04:17] VITALS: BMI 24.5
--- NOTE | 2020-05-25 07:44 | PDOC.FM ---
- Subjective Subjective: Pt states he feels well. denies abd pain or chest pain. will receive HD today states his LUE has been swelling since ~2 days before admission. c/o pain LUE. - Objective MAR Reviewed: Yes Vital Signs & Weight: Vital Signs (12 hours) Temp Pulse Resp BP Pulse Ox 05/25/20 07:25 98.5 F 97 18 121/49 L 95 05/25/20 03:48 98.4 F 96 18 162/84 H 96 05/25/20 00:00 97.5 F L 89 18 168/80 H 97 Weight Weight 79.651 kg Most Recent Monitor Data Heart Rate from ECG 91 NIBP 157/68 NIBP BP-Mean 134 Respiration from ECG 16 SpO2 100 I&O: 05/24/20 05/25/20 05/26/20 06:59 06:59 06:59 Intake Total 82.2 500 Output Total 0 0 Balance 82.2 500 Result Diagrams: 05/23/20 12:07 05/25/20 10:24 Phys Exam - Physical Examination Constitutional: NAD HEENT: moist MMs Neck: supple, full ROM Respiratory: no wheezing, no rales, no rhonchi, clear to auscultation bilateral Cardiovascular: RRR Gastrointestinal: soft, non-tender, no distention, positive bowel sounds R LE amputated LUE edematous. Neurological: non-focal, moves all 4 limbs Psychiatric: normal affect, A&O x 3 Skin: no rash, normal turgor Dx/Plan (1) Left upper extremity swelling Code(s): M79.89 - OTHER SPECIFIED SOFT TISSUE DISORDERS Status: Acute (2) Diabetes mellitus type 1 with complications Code(s): E10.8 - TYPE 1 DIABETES MELLITUS WITH UNSPECIFIED COMPLICATIONS Status: Chronic (3) Diastolic CHF Code(s): I50.30 - UNSPECIFIED DIASTOLIC (CONGESTIVE) HEART FAILURE Status: Chronic Qualifiers: (4) ESRD (end stage renal disease) on dialysis Code(s): N18.6 - END STAGE RENAL DISEASE; Z99.2 - DEPENDENCE ON RENAL DIALYSIS Status: Chronic (5) HLD (hyperlipidemia) Code(s): E78.5 - HYPERLIPIDEMIA, UNSPECIFIED Status: Chronic (6) Hypertension Code(s): I10 - ESSENTIAL (PRIMARY) HYPERTENSION Status: Chronic Qualifiers: Hypertension type: essential hypertension Qualified Code(s): I10 - Essential (primary) hypertension (7) Non-compliance with renal dialysis Code(s): Z91.15 - PATIENT'S NONCOMPLIANCE WITH RENAL DIALYSIS Status: Chronic - Plan Plan: # DKA, resolved -Type 1 diabetic -on home insulin, lantus 15U qAM -DKA improved but AG still open (19)- will reassess after dialysis but is not currently on DKA protocol as he cannot receive more fluids in the setting of ESRD, currently fluid overloaded. -BMP after dialysis to assess AG # ESRD on hemodialysis -on MWF, missed this week -Nephro, Dr. Gonzalez, on board; appreciate the recs. - plan for dialysis again today # LUE swelling and TTP - LUE doppler ordered - hx 02/2020 AV fistual malfunction # Hyperkalemia - resolved -Continue dialysis # Hyponatremia - resolved - 2/2 hyperglycemia # Hyperphosphatemia - continue dialysis Chronic Diarrhea -aware, pt needs to continue anti-diarrheal agents at the time of dialysis HTN -aware, will restart home meds Depression/Anxiety -aware, will restart home meds Drug Abuse -Marijuana and PCP abuse HLD -aware, will restart home meds VTE: Heparin Diet: Will advance after dialysis if AG closed PCP: Arlen Dispo: admit to inpatient ICU, palliative consult to get goals of care Right fem central trialysis catheter in place. Contact: Dread (Akshat): [phone] Addendum - Attending - Attending Attestation Date/Time: 05/25/20 1808 I personally evaluated the patient and discussed the management with Dr. Kendrick. I agree with the History, Examination, Assessment and Plan documented above with any addition or exceptions noted below. Patient feels well. HD today and possible discharge afterwards. He has some arm swelling in setting of known fistula issue. Repeat U/S and mgmt pending that result. Glucose levels improved. Patient historically very noncompliant with frequent bouncebacks due to noncompliance.
[2020-05-25] MEDS: Heparin 5,000 UNITS/ML VIAL SC SCH (08:22)
[2020-05-25] MEDS ORDERED: Insulin Glargine 15 UNITS in Pre-Filled Syringe 1 EACH SC SCH (09:00)
[2020-05-25 10:56] LABS: Anion Gap 22 mmol/L (10-20); BUN (Urea Nitrogen) 65 mg/dL (8.9-20.6); Calc. Creatinine Clearance 10 mL/min (70-130); Calcium 8.4 mg/dL (7.8-10.44); Carbon Dioxide 21 mmol/L (22-29); Chloride 98 mmol/L (98-107); Estimated GFR-MDRD 6; Glucose 259 mg/dL (70-105); Sodium 136 mmol/L (136-145)
--- NOTE | 2020-05-25 13:24 | ULT ---
ULTRASOUND DOPPLER DUPLEX VENOUS LEFT UPPER EXTREMITY: DATE: 05/25/2020 HISTORY: 39-year-old male with left upper extremity swelling/edema. Dr. Mane discussed the thrombosis and occlusion of the left subclavian vein by telephone with Dr. Vishnu Kendrick at 1:19 PM 05/25/2020. TECHNIQUE: Grayscale, color-flow, and spectral analysis, of the major veins of left upper extremity. FINDINGS: There is an old left AV hemodialysis fistula or graft which is chronically occluded and calcified. Th ere is complete occlusion by what is probably acute thrombosis, of the entire left subclavian vein, including at the junction with the fistula/graft. There is no thrombosis of the left internal jugular, axillary, cephalic, brachial, basilic, radial, u lnar, veins. There is soft tissue edema of moderate to severe degree in the left arm. 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 3) soft tissue edema of the left arm.
[2020-05-25] MEDS ORDERED: Rivaroxaban 15 MG TAB PO SCH (13:36)
--- NOTE | 2020-05-25 13:38 | PRG ---
DATE OF SERVICE: 05/25/2020 SUBJECTIVE: The patient was seen and examined at bedside and overnight events noted. The patient denies any shortness of breath or chest pain or palpitation. No history of nausea or vomiting or diarrhea or fever or chills or cramps. OBJECTIVE: GENERAL: This is a well-built male, in no apparent distress. VITAL SIGNS: Temperature 98.4. Heart rate 77. Respiratory rate 16. Blood pressure 174/93. HEENT: Atraumatic, normocephalic. Oral mucosa is moist. NECK: Supple. CARDIOVASCULAR: S1, S2 heard. Rate and rhythm regular. RESPIRATORY: Clear to auscultation. GASTROINTESTINAL: Abdomen is soft. MUSCULOSKELETAL: No tenderness. No edema. DERMATOLOGIC: No skin rash. NEUROLOGIC: Alert and awake and oriented x3. No focal neurologic deficits. Moving all the extremities. PSYCHIATRIC: Mood and affect normal. LABORATORY DATA: Potassium is 5.0, BUN is 65, creatinine is 11.1. ASSESSMENT AND PLAN: 1. End-stage renal disease. Continue dialysis Monday, Monday, and Monday. 2. Hyperkalemia, better. 3. Hypertension. 4. Anemia of chronic disease. Continue dialysis Monday, Monday, and Monday. Job ID: [id number]
--- NOTE | 2020-05-25 14:59 | PDOC.PALPN ---
Palliative Progress Note - Subjective Denies complaints, states "I am ready to go home". Sitting on side of bed. - Objective Vital Signs: Vital Signs - Most Recent Temp Pulse Resp BP Pulse Ox 98.4 F 97 16 174/93 H 97 05/25/20 11:58 05/25/20 11:58 05/25/20 11:58 05/25/20 11:58 05/25/20 11:58 - Physical Exam Constitutional: ill appearing HEENT: moist MMs, sclera anicteric Respiratory: no wheezing, unlabored breathing Cardiovascular: RRR Gastrointestinal: soft, non-tender, positive bowel sounds Musculoskeletal: edema present Deviation from normal: right BKA Neurology: moves all 4 limbs Skin: cap refill <2 seconds, no lesions, no rash Psychiatric: A&O x 3, normal affect - Assessment (1) Palliative care encounter Code(s): Z51.5 - ENCOUNTER FOR PALLIATIVE CARE Current Visit: Yes Status: Acute (2) Type 1 diabetes mellitus with hyperosmolarity without nonketotic hyperglycemic hyperosmolar coma Code(s): E10.69 - TYPE 1 DIABETES MELLITUS WITH OTHER SPECIFIED COMPLICATION; E10.65 - TYPE 1 DIABETES MELLITUS WITH HYPERGLYCEMIA Current Visit: No Status: Acute (3) Anemia of renal disease Code(s): D63.1 - ANEMIA IN CHRONIC KIDNEY DISEASE Current Visit: No Status: Chronic (4) Anxiety and depression Code(s): F41.9 - ANXIETY DISORDER, UNSPECIFIED; F32.9 - MAJOR DEPRESSIVE DISORDER, SINGLE EPISODE, UNSPECIFIED Current Visit: No Status: Chronic (5) Diastolic CHF Code(s): I50.30 - UNSPECIFIED DIASTOLIC (CONGESTIVE) HEART FAILURE Current Visit: No Status: Chronic Qualifiers: (6) ESRD (end stage renal disease) on dialysis Code(s): N18.6 - END STAGE RENAL DISEASE; Z99.2 - DEPENDENCE ON RENAL DIALYSIS Current Visit: No Status: Chronic (7) Non-compliance with renal dialysis Code(s): Z91.15 - PATIENT'S NONCOMPLIANCE WITH RENAL DIALYSIS Current Visit: No Status: Chronic - Plan Plan: Short life review, states his family is most important to him. Confirms he lives with his mother, close to siblings and enjoys his nieces and nephews. Goal of Care is to "live". Discussed dialysis, burden of dialysis. Mr Huber confirmed he gets "tired of going to dialysis" but that after he "gets there" it is "ok". Discussed that compliance with dialysis is imperative to meet the goal of "living". Reinforced the value of his family as well as affirmed the frustration of dialysis. Emotional Support and Therapeutic listening. Confirmed he desires to continue with dialysis, and although he feels "burdened at times" knows he must continue if he desires to continue to live. Palliative Care will sign off as patient confirms understanding of importance and need for compliance of dialysis. If we can assist again with Goal of care, complex decision making, coping, education in relation to disease trajectory, or family support please reconsult our team. Thank you very much for the opportunity to participate with the care of Mr Brush. [25] minutes spent on this encounter with >50% of the time in counseling and coordination of care. - ROS Constitutional: alert, weakness ENT: other (denies difficulity swallowing or throat irritaiton) Respiratory: other (denies cough, or congestion) Cardiology: other (denies palpitations, positive for edema to left lower extremity) Gastrointestinal: other (denies nausea, vomiting, constipation) Musculoskeletal: other (phantom pain) Psychological: depression
--- NOTE | 2020-05-25 15:10 | PDOC.FMACP ---
Advance Care Planning - Problem (1) Palliative care encounter Status: Acute Code(s): Z51.5 - ENCOUNTER FOR PALLIATIVE CARE (2) Type 1 diabetes mellitus with hyperosmolarity without nonketotic hyperglycemic hyperosmolar coma Status: Acute Code(s): E10.69 - TYPE 1 DIABETES MELLITUS WITH OTHER SPECIFIED COMPLICATION; E10.65 - TYPE 1 DIABETES MELLITUS WITH HYPERGLYCEMIA (3) Anemia of renal disease Status: Chronic Code(s): D63.1 - ANEMIA IN CHRONIC KIDNEY DISEASE (4) Anxiety and depression Status: Chronic Code(s): F41.9 - ANXIETY DISORDER, UNSPECIFIED; F32.9 - MAJOR DEPRESSIVE DISORDER, SINGLE EPISODE, UNSPECIFIED (5) Diastolic CHF Status: Chronic Code(s): I50.30 - UNSPECIFIED DIASTOLIC (CONGESTIVE) HEART FAILURE Qualifiers: (6) ESRD (end stage renal disease) on dialysis Status: Chronic Code(s): N18.6 - END STAGE RENAL DISEASE; Z99.2 - DEPENDENCE ON RENAL DIALYSIS (7) Non-compliance with renal dialysis Status: Chronic Code(s): Z91.15 - PATIENT'S NONCOMPLIANCE WITH RENAL DIALYSIS - Note Participants: patient, palliative care Summary: Revisited Advanced Care Planning, allowed an opportunity to decline. The diagnosis, prognosis and goals of care were discussed. Appropriate forms and documentation to accomplish the goals of care were discussed. All questions were answered. Mr Brush states he has MPOA paperwork at home, listing his mother Rosa Aguayo as his MPOA. He is not . He confirmes full resuscitation measures and continue with all aggressive measures and treatments. The Palliative Care Team will to assist with completion of any outstanding forms as identified. Time Spent (mins): 20
[2020-05-25] MEDS: Nicotine 14 MG PATCH TD SCH (17:49)
[2020-05-25] MEDS ORDERED: Apixaban 5 MG TAB PO SCH (18:45)
[2020-05-25] MEDS: levETIRAcetam 500 MG TAB PO SCH (20:29)
[2020-05-26] MEDS: Insulin Regular 300 UNITS/3 ML VIAL SC PRN ×3 (01:19→07:20)
[2020-05-26] MEDS: Acetaminophen 325 MG TAB PO PRN (04:16)
[2020-05-26 05:53] LABS: Anion Gap 18 mmol/L (10-20); BUN (Urea Nitrogen) 33 mg/dL (8.9-20.6); Calc. Creatinine Clearance 16 mL/min (70-130); Calcium 8.6 mg/dL (7.8-10.44); Carbon Dioxide 26 mmol/L (22-29); Chloride 100 mmol/L (98-107); Estimated GFR-MDRD 11; Glucose 416 mg/dL (70-105); Potassium 4.2 mmol/L (3.5-5.1); Sodium 140 mmol/L (136-145)
--- NOTE | 2020-05-26 07:52 | PDOC.FM ---
- Subjective Subjective: Pt denies cp. swelling still present in LUE, slight pain present. stable and no acute overnight events. had HD yesterday and scheduled for outpt HD tomorrow at [facility]. - Objective MAR Reviewed: Yes Vital Signs & Weight: Vital Signs (12 hours) Temp Pulse Resp BP BP Pulse Ox 05/26/20 07:02 99.0 F 102 H 20 138/74 95 05/26/20 03:49 99.8 F H 103 H 18 179/82 H 100 05/26/20 00:00 98.5 F 97 18 165/84 H 97 Weight Weight 77.6 kg Most Recent Monitor Data Heart Rate from ECG 91 NIBP 157/68 NIBP BP-Mean 134 Respiration from ECG 16 SpO2 100 I&O: 05/25/20 05/26/20 05/27/20 06:59 06:59 06:59 Intake Total 500 640 Output Total 0 0 Balance 500 640 Result Diagrams: 05/23/20 12:07 05/26/20 05:20 Phys Exam - Physical Examination Constitutional: NAD HEENT: moist MMs Neck: supple, full ROM Respiratory: no wheezing, no rales, no rhonchi, clear to auscultation bilateral Cardiovascular: RRR Gastrointestinal: soft, no distention BKA Neurological: non-focal, moves all 4 limbs Psychiatric: normal affect, A&O x 3 Skin: no rash, normal turgor Deviation from normal: diaphoretic skin Dx/Plan (1) Left upper extremity swelling Code(s): M79.89 - OTHER SPECIFIED SOFT TISSUE DISORDERS Status: Acute (2) Diabetes mellitus type 1 with complications Code(s): E10.8 - TYPE 1 DIABETES MELLITUS WITH UNSPECIFIED COMPLICATIONS Status: Chronic (3) Diastolic CHF Code(s): I50.30 - UNSPECIFIED DIASTOLIC (CONGESTIVE) HEART FAILURE Status: Chronic Qualifiers: (4) ESRD (end stage renal disease) on dialysis Code(s): N18.6 - END STAGE RENAL DISEASE; Z99.2 - DEPENDENCE ON RENAL DIALYSIS Status: Chronic (5) HLD (hyperlipidemia) Code(s): E78.5 - HYPERLIPIDEMIA, UNSPECIFIED Status: Chronic (6) Hypertension Code(s): I10 - ESSENTIAL (PRIMARY) HYPERTENSION Status: Chronic Qualifiers: Hypertension type: essential hypertension Qualified Code(s): I10 - Essential (primary) hypertension (7) Non-compliance with renal dialysis Code(s): Z91.15 - PATIENT'S NONCOMPLIANCE WITH RENAL DIALYSIS Status: Chronic - Plan Plan: # DKA, resolved -Type 1 diabetic -on home insulin, lantus 15U qAM increased to 20 units -DKA resolved. # ESRD on hemodialysis -on MWF, missed this week -Nephro, Dr. Gonzalez, on board; appreciate the recs. - plan for dialysis outpt tomorrow # L subclavian vein acute thrombosis - LUE doppler: acute thrombus of L subclavian vein. Chronic thrombus of AV fistula LUE. - hx 02/2020 AV fistual malfunction - started on eliquis 5 mg bid. Discussed with Pharmacy about dosing and agreed upon 5 mg bid to start and stay on as pt on HD. # Hyperkalemia - resolved -Continue dialysis # Hyponatremia - resolved - 2/2 hyperglycemia # Hyperphosphatemia - continue dialysis Chronic Diarrhea -aware, pt needs to continue anti-diarrheal agents at the time of dialysis HTN -aware, will restart home meds Depression/Anxiety -aware, will restart home meds Drug Abuse -Marijuana and PCP abuse HLD -aware, will restart home meds VTE: eliquis 5 mg bid Diet: CC PCP: Arlen Dispo: admit to inpatient ICU, palliative consult to get goals of care (pt still seeks full interventions and HD) Right fem central trialysis catheter in place. Contact: Dread (Akshat): [phone] Addendum - Attending - Attending Attestation Date/Time: 05/26/20 1151 I personally evaluated the patient and discussed the management with Dr. Kendrick. I agree with the History, Examination, Assessment and Plan documented above with any addition or exceptions noted below. Patient feeling well. Explained the blood clot in his L arm and the importance of OAC. He agrees and understands. His blood glucose is labile as it always is due to diet and med noncompliance. He is overall stable for discharge and will follow up with HD tomorrow.
[2020-05-26] MEDS ORDERED: Diphenoxylate HCl/Atropine Tablet PO PRN (07:53)
[2020-05-26] MEDS: levETIRAcetam 500 MG TAB PO SCH (08:21)
[2020-05-26] MEDS ORDERED: Cinacalcet HCl 30 MG TAB PO SCH (09:00)
[2020-05-26] MEDS ORDERED: Amlodipine 10 MG TAB PO SCH (09:00)
[2020-05-26] MEDS ORDERED: Apixaban 5 MG TAB PO SCH ×4 (09:00→21:00)
[2020-05-26] MEDS ORDERED: Insulin Glargine 20 UNITS in Pre-Filled Syringe 1 EACH SC SCH ×3 (09:00)
[2020-05-26] MEDS ORDERED: Aspirin 81 mg Enteric Coated Tablet PO SCH (09:00)
[2020-05-26 11:07] VITALS: BP 163/90; TEMP 97.8
--- NOTE | 2020-05-26 14:12 | PRG ---
DATE OF SERVICE: 05/26/2020 SUBJECTIVE: Patient was seen and examined at bedside and overnight events noted. Patient denies any shortness of breath or chest pain or palpitation. No history of nausea or vomiting or diarrhea or fever or chills or cramps. OBJECTIVE: General: This is well-build male, in no apparent distress. Vital Signs: Temperature 97.8. Heart rate 82. Respiratory rate 18. Blood pressure 163/90. HEENT: Atraumatic, normocephalic. Oral mucosa is moist. Neck: Supple. Cardiovascular: S1, S2 heard. Rate and rhythm regular. Respiratory: Clear to auscultation. Gastrointestinal: Abdomen is soft. Musculoskeletal: No tenderness. No edema. Dermatologic: No skin rash. Neurologic: Alert and awake and oriented x3. No focal neurologic deficits. Moving all the extremities. Psychiatric: Mood and affect normal. LABORATORY DATA: Potassium 4.2, BUN 33, and creatinine 6.8. ASSESSMENT AND PLAN: 1. End-stage renal disease. Continue dialysis on Monday, Monday, and Monday. 2. Hyperkalemia. 3. Hypertension. 4. Anemia of chronic disease. We will continue on dialysis Monday, Monday, and Monday. Job ID: [id number]
--- NOTE | 2020-05-27 07:48 | DIS ---
DATE OF ADMISSION: 05/23/2020 DATE OF DISCHARGE: 05/26/2020 RESIDENT: Atiya Kendrick DO. ADMITTING ATTENDING: Juliet Stroud MD. DISCHARGE ATTENDING: Efraín Mckinley M.D. PROCEDURES: Right femoral central line on 05/23, left femoral Trialysis catheter on 05/23, dialysis on 05/23 and 05/25. CONSULT: Dr. Hurd with stripper soft plastic, Physical Therapy, and Occupational Therapy. DIAGNOSES: 1. Diabetic ketoacidosis, resolved. 2. End-stage renal disease, on hemodialysis. 3. Left subclavian vein acute thrombus. 4. Hyperkalemia, resolved. 5. Hyponatremia, resolved. 6. Hypophosphatemia, resolving. 7. Chronic diarrhea. 8. Hypertension. 9. Depression/anxiety. 10. Drug abuse. 11. Hyperlipidemia. DISCHARGE MEDICATIONS: 1. Eliquis b.i.d. 5 mg. This is a new medication. The patient counseled extensively on the use of this medication. 2. Acetaminophen 650 p.o. q.4 hours p.r.n. for pain. 3. Amlodipine 10 mg p.o. daily. 4. Aspirin 81 mg p.o. daily. 5. Sensipar 60 mg p.o. daily. 6. Lomotil 2 mg p.o. t.i.d. p.r.n. 7. Humalog sliding scale. 8. Lantus 20 units subcu a.m. 9. Keppra 500 mg p.o. b.i.d. 10. Sertraline 50 mg p.o. daily. DISCONTINUED MEDICATION: Lantus 15 units subcu a.m. HISTORY OF PRESENT ILLNESS/HOSPITAL COURSE: Mr. Brush is a 39-year-old male with a medical history of insulin-dependent type 1 diabetes and ESRD on hemodialysis, came into the emergency department and found to be in DKA, was admitted to the ICU for an insulin drip and received a Trialysis catheter as well as central line for these medication. He received insulin drip until his gap closed and then he also received emergent dialysis on 05/23 and then again on 05/25. His blood sugars remained elevated, however, he was no longer in DKA. He also began to tell us about the swelling that occurred a few days before admission to the hospital on his left upper extremity. We ordered a left upper extremity Doppler and this showed a left subclavian vein acute thrombosis, for which he was placed on 5 mg p.o. b.i.d. for this. This medication dosing was discussed with pharmacist, Spenser Becker; he recommended dosing o5 mg b.i.d. initially and to continue as the patient is on hemodialysis and would not need a regular dosing pattern. After dialysis, the patient's electrolyte abnormalities grossly improved. He felt tons better, denying any chest pain, shortness of breath or feeling poorly as when he came in. The patient was counseled extensively on the use of the Eliquis with the new thrombosis and he understands that this needs to be a medication that compliance is of utmost importance as well as his insulin and home dialysis regimen. He was very apologetic for skipping dialysis before coming into the hospital as well as being noncompliant with his medications and states he will try to do better on his part to uphold the responsibility to take care of himself upon discharge. DISPOSITION: Stable, much improved. DISCHARGE INSTRUCTIONS: 1. Location: To home. 2. Diet: Renal diet. 3. Activity: As tolerated. 4. Followup: Follow up with primary care physician, Dr. Mckinley in 1 week's time. Job ID: [id number]
== END 2020-05-26 13:51 | disposition home or self-care (01) | DRG 637 ==
LOC: ERS 11:02 → CCU 13:38 → T4-B 05-24 15:07
PROVIDERS: ADMIT Family Medicine; ATTEND Family Medicine
PROC: 06HY33Z Insertion of Infusion Device into Lower Vein, Percutaneous Approach (ICD-10-PCS; principal; 2020-05-23)
PROC: 5A1D70Z Performance of Urinary Filtration, Intermittent, Less than 6 Hours Per Day (ICD-10-PCS; 2020-05-23)
PROC: 3E043XZ Introduction of Vasopressor into Central Vein, Percutaneous Approach (ICD-10-PCS; 2020-05-23)
DX: E10.10 Type 1 diabetes mellitus with ketoacidosis without coma (principal); N18.6 End stage renal disease; I82.B12 Acute embolism and thrombosis of left subclavian vein; E87.1 Hypo-osmolality and hyponatremia; I12.0 Hypertensive chronic kidney disease with stage 5 chronic kidney disease or end stage renal disease; E87.5 Hyperkalemia; E83.39 Other disorders of phosphorus metabolism; K52.9 Noninfective gastroenteritis and colitis, unspecified; F32.9 Major depressive disorder, single episode, unspecified; F41.9 Anxiety disorder, unspecified; E78.5 Hyperlipidemia, unspecified; Z20.828 Contact with and (suspected) exposure to other viral communicable diseases; F12.10 Cannabis abuse, uncomplicated; F16.10 Hallucinogen abuse, uncomplicated; E78.00 Pure hypercholesterolemia, unspecified; E10.22 Type 1 diabetes mellitus with diabetic chronic kidney disease; F17.210 Nicotine dependence, cigarettes, uncomplicated; Z91.14 Patient's other noncompliance with medication regimen; Z89.511 Acquired absence of right leg below knee; Z86.73 Personal history of transient ischemic attack (TIA), and cerebral infarction without residual deficits; Z99.2 Dependence on renal dialysis; Z88.0 Allergy status to penicillin; Z79.899 Other long term (current) drug therapy; Z79.4 Long term (current) use of insulin; Z79.82 Long term (current) use of aspirin
CPT/HCPCS: 36415; 36416; 36556; 71045; 80048; 80053; 82010; 82330; 82803; 83735; 84100; 85025; 87635; 90935; 93005; 96365; 96366; 96372; 96375; 96376; 99292; C1752; G0257; J1644; J1815; J2250; J3490; U0003

== ENCOUNTER 2020-05-26 16:48 | Emergency (ER) | payer MEDICARE, OTHER ==
[~2020-05-26 16:48] MED LIST changes: -Heparin 10,000 UNITS/ 10 ML VIAL ONE; +Iopamidol-370 76% 500 ML 1 ML ONE
[2020-05-26] MEDS ORDERED: Tranexamic Acid 1,000 MG/10 ML VIAL ONE (16:51)
[2020-05-26 17:25] LABS: #Eosinphils 0.1 thou/uL (0.0-0.7); #Lymphocytes 1.2 thou/uL (1.20-3.40); #Monocytes 0.8 thou/uL (0.11-0.59); #Neutrophils 4.4 thou/uL (1.40-6.50); %Basophils 0.4 % (0.0-1.0); %Eosinophils 1.1 % (0.0-10.0); %Lymphocytes 18.2 % (21.0-51.0); %Monocytes 12.6 % (0.0-10.0); %Neutrophils 67.8 % (42.0-75.0); Hemoglobin 8.6 g/dL (14.0-18.0); Mean Corpuscular HGB CONC 31.7 g/dL (32.0-36.0); Mean Corpuscular Hemoglobin 28.3 pg (27.0-31.0); Mean Corpuscular Volume 89.3 fL (78.0-98.0); Platelet Count 62 thou/uL (130-400); RBC Distribution Width 16.5 % (11.5-14.5); Red Blood Cell (RBC) Count 3.04 mill/uL (4.70-6.10); White Blood Cell (WBC) Count 6.5 thou/uL (4.8-10.8)
[2020-05-26 17:28] LABS: INR-International Normal Ratio 1.4; PTT 47.7 sec (22.9-36.1); Prothrombin Time 17.4 sec (12.0-14.7)
[2020-05-26] MEDS ORDERED: Lidocaine 1% w/Epinephrine 1:100K 20 ML VIAL ONE (17:42)
[2020-05-26 17:57] LABS: Chloride 101 mmol/L (98-107); Potassium 4.7 mmol/L (3.5-5.1); Sodium 137 mmol/L (136-145)
[2020-05-26 18:00] LABS: Albumin 3.3 g/dL (3.5-5.0)
[2020-05-26] MEDS ORDERED: ADMIXTURE FEE SC SCH (18:00)
[2020-05-26] MEDS ORDERED: DESMOPRESSIN ACETATE SC SCH (18:00)
[2020-05-26] MEDS ORDERED: Tranexamic Acid 650 MG TAB PO SCH (18:00)
[2020-05-26 18:02] LABS: Calcium 7.5 mg/dL (7.8-10.44); Glucose 105 mg/dL (70-105)
[2020-05-26 18:03] LABS: Globulin 2.5 g/dL (2.4-3.5); Protein, Total 5.8 g/dL (6.0-8.3)
[2020-05-26 18:04] LABS: Anion Gap 16 mmol/L (10-20); Bilirubin, Total 0.5 mg/dL (0.2-1.2); Carbon Dioxide 25 mmol/L (22-29)
[2020-05-26 18:05] LABS: Alkaline Phosphatase 147 U/L (40-110)
[2020-05-26 18:06] LABS: Calc. Creatinine Clearance 0 mL/min (70-130); Estimated GFR-MDRD 10
[2020-05-26 18:07] LABS: AST (SGOT) 26 U/L (5-34); BUN (Urea Nitrogen) 41 mg/dL (8.9-20.6)
[2020-05-26 18:08] LABS: ALT (SGPT) 24 U/L (8-55)
--- NOTE | 2020-05-26 19:40 | CT ---
CT ABDOMEN AND PELVIS WITH IV CONTRAST: 05/26/20 INDICATIONS: Retroperitoneal bleed. Patient was discharged from the hospital this morning and central lines remove d. Bleeding from central line site. Correlation made to the chest x-ray of 05/23/20 which revealed a large right pleural effusion. FINDINGS: Images through the lung bases again shows a large right pleural effusion with right lung atelectasis. Review of the liver reveals contrast extravasation throughout the left lobe of the liver indicating a ctive hemorrhage. The site of the active hemorrhage appears to originate from the anterior wall of th e inferior vena cava as it enters the hepatic segment as seen on image 24 axial. There are numerous collateral veins in the subcutaneous tissues of the upper abdomen which are opacif ied on this study. 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 This history is obtained after speaking to the ER physician. At least one of the se venous structures does penetrate the anterior abdominal wall and extends into the falciform ligame nt. This could potentially be a site of origin of the hemorrhage. These collateral veins also extend inferiorly to the iliac veins bilaterally. These veins are all opacified from the IV injection. The venous opacification extending from the inferior vena cava has a linear configuration and could p otentially represent a left lobe hepatic vein. No other hepatic veins are opacified and this has an a bnormal appearance for the main left hepatic vein and blood flow within this structure is retrograde to normal hepatic vein flow. However, it does appear to branch peripherally within the left lobe. The spleen and pancreas are unremarkable. The kidneys show numerous bilateral renal cysts and decreas ed enhancement consistent with renal insufficiency. Small bowel loops show nonspecific distention. No free fluid or blood in the abdomen or pelvis. IMPRESSION: Active contrast extravasation into the left lobe of the liver is seen. There are numerous collateral venous structures in the anterior abdominal wall some of which penetrates the abdominal wall and exte nd into the liver via the falciform ligament. There is an opacified vessel or linear extravasation ex tending from the anterior aspect of the inferior vena cava as it enters its hepatic segment which may be the origin of the liver extravasation. I cannot exclude inferior vena cava injury. The findings were discussed with Dr. Sauer. Case was also reviewed with Dr. Agarwal. POS: AGW
== END 2020-05-26 20:29 | disposition home or self-care (01) ==
LOC: ERS 16:48
DX: I97.620 Postprocedural hemorrhage of a circulatory system organ or structure following other procedure (principal); D62 Acute posthemorrhagic anemia; Z86.73 Personal history of transient ischemic attack (TIA), and cerebral infarction without residual deficits; E10.22 Type 1 diabetes mellitus with diabetic chronic kidney disease; E78.5 Hyperlipidemia, unspecified; I12.0 Hypertensive chronic kidney disease with stage 5 chronic kidney disease or end stage renal disease; N18.6 End stage renal disease; Z99.2 Dependence on renal dialysis; F17.210 Nicotine dependence, cigarettes, uncomplicated
CPT/HCPCS: 36430; 74177; 80053; 85025; 85610; 85730; 86850; 86900; 86901; 86920; 93005; P9016; 12001; 36415; 96372; J2597; Q9967

== ENCOUNTER 2020-06-11 11:33 | Observation (INO) | payer MEDICARE, MEDICAID, OTHER ==
[2020-06-11 12:29] LABS: #Eosinphils 0.1 thou/uL (0.0-0.7); #Lymphocytes 1.3 thou/uL (1.20-3.40); #Monocytes 0.6 thou/uL (0.11-0.59); #Neutrophils 5.6 thou/uL (1.40-6.50); %Lymphocytes 17.4 % (21.0-51.0); %Monocytes 7.4 % (0.0-10.0); %Neutrophils 74.2 % (42.0-75.0); Hemoglobin 8.2 g/dL (14.0-18.0); Mean Corpuscular HGB CONC 32.7 g/dL (32.0-36.0); Mean Corpuscular Hemoglobin 29.5 pg (27.0-31.0); Mean Platelet Volume 12.2 fL (7.4-10.4); Platelet Count 122 thou/uL (130-400); RBC Distribution Width 16.5 % (11.5-14.5); Red Blood Cell (RBC) Count 2.78 mill/uL (4.70-6.10); White Blood Cell (WBC) Count 7.6 thou/uL (4.8-10.8)
[2020-06-11 12:57] LABS: ALT (SGPT) 8 U/L (8-55); AST (SGOT) 8 U/L (5-34); Acetaminophen Less than 6.0 mcg/mL (10.0-30.0); Albumin 3.3 g/dL (3.5-5.0); Alcohol Less than 10 mg/dL (Less than 10); Alkaline Phosphatase 112 U/L (40-110); Anion Gap 24 mmol/L (10-20); BUN (Urea Nitrogen) 95 mg/dL (8.9-20.6); Bilirubin, Total 0.4 mg/dL (0.2-1.2); Calc. Creatinine Clearance 0 mL/min (70-130); Calcium 6.4 mg/dL (7.8-10.44); Carbon Dioxide 20 mmol/L (22-29); Chloride 96 mmol/L (98-107); Estimated GFR-MDRD 4; Globulin 3.2 g/dL (2.4-3.5); Glucose 339 mg/dL (70-105); Protein, Total 6.5 g/dL (6.0-8.3); Salicylate Less than 8.0 mg/dL (15.0-30.0); Sodium 135 mmol/L (136-145)
--- NOTE | 2020-06-11 13:10 | RAD ---
PORTABLE CHEST 1 VIEW: Date: 06/11/2020 Time: 1219 hours HISTORY: Patient missed dialysis. Hypotension. COMPARISON: 05/23/2020. FINDINGS: Opacification of the major portion of the right hemithorax is again seen. The left lung is clear. The heart size is normal. Vascular stents are again noted bilaterally. No pneumothoraces or left pleural effusion seen. IMPRESSION: Stable exam. POS: SALOME
--- NOTE | 2020-06-11 13:49 | PDOC.FPRHP ---
- History of Present Illness Chief Complaint: SOB History of Present Illness: 39yo M presents for several day hx of feeling SOB. He has hx of ESRD and has not gone to dialysis in 1 week. States he did not feel up to going. He has been having diarrhea. No fever/chills, no sick contacts. His diarrhea is chronic. At his last hospitalization he was diagnosed with subclavian DVT and started on eliquis. He states he has been taking this med and was able to provide details about taking it BID for his DVT. He also endorses intermittent bright red blood per rectum and pain when he wipes. States he has hx of hemorrhoids. His last BM was normal. ED Course: nephro consulted, plans to send to dialysis before telemetry. - Allergies/Adverse Reactions Allergies Allergy/AdvReac Type Severity Reaction Status Date / Time Penicillins Allergy Unknown Verified 06/11/20 21:14 - Home Medications Medication Instructions Recorded Confirmed Type Sevelamer Carbonate [Renvela] 2,400 mg PO TID-WM 09/08/15 05/05/20 History Amlodipine Besylate [amLODIPine 10 mg PO DAILY 09/02/16 06/11/20 History Besylate] Cinacalcet HCl [Sensipar] 60 mg PO DAILY 09/02/16 06/11/20 History Sertraline HCl 25 mg PO DAILY 03/03/17 06/11/20 History Acetaminophen [Tylenol Regular 650 mg PO Q4H PRN tab 09/27/18 05/05/20 Rx Strength] HumaLOG [HumaLOG Vial] 3 units SC TID-WM vial 11/26/19 06/11/20 Rx levETIRAcetam [Keppra] 500 mg PO BID #0 tab 11/26/19 06/11/20 Rx Diphenoxylate HCl/Atropine 2 tab PO TID PRN #60 tab 02/19/20 06/11/20 Rx [Lomotil] Aspirin [Ecotrin Low Strength] 81 mg PO DAILY 02/27/20 06/11/20 History Apixaban [Eliquis] 5 mg PO BID #60 tab 05/26/20 06/11/20 Rx Insulin Glargine [Lantus Vial] 20 units SC QAM vial 05/26/20 06/11/20 Rx - History PMHx: -ESRD on hemodialysis MWF -T1DM -HTN -HLD -Prior CVA x2 -anxiety/depression -subclavian DVT PSHx: -BKA, 2-3 years ago FHx: -unsure of family history, reports familial hx of HTN Social: occasional ETOH, marijuana and PCP, no tobacco use - Review of Systems General: denies: fever/chills, fatigue Eyes: denies: eye pain, vision changes ENT: denies: nasal congestion, rhinorrhea Respiratory: reports: shortness of breath. denies: cough, congestion Cardiovascular: denies: chest pain, palpitation Gastrointestinal: reports: diarrhea. denies: nausea, vomiting, constipation Genitourinary: denies: incontinence, dysuria Skin: denies: rashes, lesions Musculoskeletal: denies: pain, tenderness Neurological: denies: numbness, syncope Psychological: denies: anxiety, depression - Vital signs BP: 116/78, MAP: 90, Pulse: 82, Resp: 16, Temp: 97.9 (Oral), Pain: 0, O2 sat: 95 on (2L Oxygen) - Physical Exam Constitutional: NAD, awake, alert and oriented HEENT: EOMI, grossly normal vision, grossly normal hearing Neck: supple, trachea midline Chest: no-tender to palpation Heart: RRR, normal S1/S2 Lungs: no respiratory distress, no wheezing Abdomen: soft, non-tender Musculoskeletal: normal structure, normal tone Neurological: no focal deficit, normal sensation Skin: no rash/lesions, good turgor Heme/Lymphatic: no unusual bruising or bleeding, no purpura Psychiatric: normal mood and affect, intact recent and remote memory FMR H&P: Results - Labs Result Diagrams: 06/12/20 04:21 06/12/20 04:21 Lab results: WBC 7.6 thou/uL (4.8-10.8) 06/11/20 12:17 Hgb 8.2 g/dL (14.0-18.0) L 06/11/20 12:17 Hct 25.0 % (42.0-52.0) L 06/11/20 12:17 MCV 90.0 fL (78.0-98.0) 06/11/20 12:17 Plt Count 122 thou/uL (130-400) L 06/11/20 12:17 Neutrophils % 74.2 % (42.0-75.0) 06/11/20 12:17 Sodium 135 mmol/L (136-145) L 06/11/20 12:17 Potassium 5.0 mmol/L (3.5-5.1) 06/11/20 12:17 Chloride 96 mmol/L (98-107) L 06/11/20 12:17 Carbon Dioxide 20 mmol/L (22-29) L 06/11/20 12:17 BUN 95 mg/dL (8.9-20.6) H 06/11/20 12:17 Creatinine 15.14 mg/dL (0.7-1.3) H 06/11/20 12:17 Glucose 339 mg/dL (70-105) H 06/11/20 12:17 Calcium 6.4 mg/dL (7.8-10.44) L 06/11/20 12:17 Total Bilirubin 0.4 mg/dL (0.2-1.2) 06/11/20 12:17 AST 8 U/L (5-34) 06/11/20 12:17 ALT 8 U/L (8-55) 06/11/20 12:17 Alkaline Phosphatase 112 U/L (40-110) H 06/11/20 12:17 Serum Total Protein 6.5 g/dL (6.0-8.3) 06/11/20 12:17 Albumin 3.3 g/dL (3.5-5.0) L 06/11/20 12:17 - Radiology Interpretation Chest x-ray Status: image reviewed by me, report reviewed by me Additional comment: opacification of the major portion of the R hemithorax is again seen. the left lung is clear. the heart size is normal. vascular stents are again noted bilaterally. no pnuemataces or left pleural effusion seen. stable exam. FMR H&P: A/P - Plan 39 y/o M with PMHx of T1DM, ESRD, Chronic Diarrhea, hx of recurrent hospitalizations, and non compliance with HD presents today with SOB. ##Acute Hypoxic Respiratory Failure most likely 2/2 Volume Overload Pt had missed over a week of HD. CXR showed R pleural effusion. DDX does still include PE, covid pna -Presented hypoxic in high 80s on RA, now on 2L NC -Pt will have HD today, will monitor for improvement ##Anion Gap Metabolic Acidosis most likely 2/2 Uremia -Bun/[employer] 95/15 -BG 331, BHB 1.3 -Most likely will improved with HD ##Hx of L subclavian DVT -Pt currently on Eliquis -Considering CTA ##ESRD on hemodialysis -on MWF, missed over a week -Nephro with Dr. Gonzalez -plan to dialysis today ##T1DM -BG 331 -home insulin ##Chronic Diarrhea -pt will need SELENE ##HTN -home meds ##HLD -home meds ##Depression/Anxiety -home meds ##Substance Abuse -hx of MJ and PCP abuse CODE: Full VTE: Eliquis DIET: CC PCP: Arlen Contact: Dread (Dad) [phone] Dispo: admitted inpatient FMR H&P: Upper Level - Plan Phong Lazar, PGY3 hypoxic respiratory failure 2/2 fluid overload and HD non-compliance A- CXR shows chronic pleural effusion, pt has some crackles on exam. considering missing dialysis x3 times i suspect etiology is volume overload. Am mindful of possibility of PE and covid-19 P- dialysis -will get CTA chest if still hypoxic after dialysis -covid 19 (rapid swab) anion gap metabolic acidosis 2/2 uremia A- stable, nephro consulted. BUN 95, beta hydroxybutyrate was 1.3, glucose 330, and anion gap 19 on admission P- dialysis and BMP in AM Hematochezia A- Likely 2/2 hemorrhoids. Rectal exam attempted but pt started having BM during exam P- plan for rectal exam after admission -FOBT -continuing eliquis for now as stated below for DVT L subclavian vein thrombosis A- Previous admission LUE doppler: acute thrombus of L subclavian vein. Chronic thrombus of AV fistula LUE. 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 Was started on eliquis 5 mg bid. Discussed with Pharmacy about dosing and agreed upon 5 mg bid to start and stay on as pt on HD. P- discussed risks vs benefits of continuing this considering hematochezia. Pt desires to continue as of now -eliquis 5mg BID ESRD on hemodialysis -on MWF, Dr. Gonzalez, on board; appreciate the recs. Chronic Diarrhea -MD aware, home meds HTN -aware, will restart home meds Depression/Anxiety -quiescent, will restart home meds Drug Abuse -Marijuana and PCP abuse HLD -aware, will restart home meds VTE: eliquis 5 mg bid Diet: CC PCP: Mela Hardwick Dispo: tele, observation. Expect less than 2 midnights stay Addendum - Attending - Attending Attestation Date/Time: 06/12/20 2021 I personally evaluated the patient and discussed the management with Dr. Lazar. I agree with the History, Examination, Assessment and Plan documented above with any addition or exceptions noted below.
[2020-06-11 13:57] LABS: Lactic Acid 0.7 mmol/L (0.5-2.2)
[2020-06-11 16:53] LABS: SARS-CoV-2 NAA Rapid Test Not Detected (NotDetected)
[2020-06-11] MEDS ORDERED: Acetaminophen 325 MG TAB PO PRN (18:07)
[2020-06-11] MEDS ORDERED: Ondansetron PF 4 MG/2 ML Vial IVP PRN (18:07)
[2020-06-11] MEDS ORDERED: Ondansetron ODT 4 MG TAB SL PRN (18:07)
[2020-06-11] MEDS ORDERED: Dextrose 50% Abboject 50 ML SYRINGE SLOW IVP PRN (18:14)
[2020-06-11] MEDS ORDERED: Dextrose 5% in Water 1,000 ML IV PRN (18:14)
[2020-06-11] MEDS ORDERED: HumaLOG 300 UNITS/3 ML VIAL SC PRN (18:14)
[2020-06-12] MEDS: levETIRAcetam 500 MG TAB PO SCH ×2 (00:13→14:45)
[2020-06-12] MEDS: Apixaban 5 MG TAB PO SCH ×2 (00:13→14:45)
[2020-06-12 04:34] LABS: #Eosinphils 0.1 thou/uL (0.0-0.7); #Lymphocytes 0.8 thou/uL (1.20-3.40); #Monocytes 0.6 thou/uL (0.11-0.59); #Neutrophils 4.5 thou/uL (1.40-6.50); %Basophils 0.3 % (0.0-1.0); %Eosinophils 1.2 % (0.0-10.0); %Lymphocytes 13.2 % (21.0-51.0); %Monocytes 9.6 % (0.0-10.0); %Neutrophils 75.8 % (42.0-75.0); Hemoglobin 9.6 g/dL (14.0-18.0); Mean Corpuscular HGB CONC 32.8 g/dL (32.0-36.0); Mean Corpuscular Hemoglobin 29.5 pg (27.0-31.0); Mean Corpuscular Volume 90.2 fL (78.0-98.0); Mean Platelet Volume 11.7 fL (7.4-10.4); Platelet Count 131 thou/uL (130-400); RBC Distribution Width 16.5 % (11.5-14.5); Red Blood Cell (RBC) Count 3.24 mill/uL (4.70-6.10); White Blood Cell (WBC) Count 5.9 thou/uL (4.8-10.8)
[2020-06-12 04:50] LABS: Anion Gap 24 mmol/L (10-20); BUN (Urea Nitrogen) 46 mg/dL (8.9-20.6); Calc. Creatinine Clearance 10 mL/min (70-130); Carbon Dioxide 22 mmol/L (22-29); Chloride 96 mmol/L (98-107); Estimated GFR-MDRD 8; Glucose 371 mg/dL (70-105); Potassium 4.1 mmol/L (3.5-5.1); Sodium 138 mmol/L (136-145)
--- NOTE | 2020-06-12 05:54 | PDOC.FM ---
- Subjective Subjective: Pt resting comfortably in bed this AM. States that he is feeling much better than yesterday. Was requiring to use NC last night, however, early this morning he was saturating well on RA. He is not having SOB at this time. No CP. States that he had dialysis for 3 hours yesterday and will go again today for the full 4 hours. States that he continues to have diarrhea, which effects if he misses outpatient dialysis. No changes to the occurrence of this. - Objective Vital Signs & Weight: Vital Signs (12 hours) Temp Pulse Resp BP Pulse Ox 06/12/20 03:44 97.8 F 93 18 131/64 99 06/11/20 22:30 97.5 F L 93 17 144/83 H 98 Weight Weight 66.423 kg Result Diagrams: 06/12/20 04:21 06/12/20 04:21 Phys Exam - Physical Examination Constitutional: NAD HEENT: moist MMs Neck: supple Respiratory: no wheezing, no rales, no rhonchi L lung sounds clear at apices and bases R lung apice clear, hard to hear air movement in R base Cardiovascular: RRR, no significant murmur, no rub Gastrointestinal: soft, non-tender, no distention, positive bowel sounds Musculoskeletal: no edema, pulses present R BKA Neurological: moves all 4 limbs Psychiatric: normal affect, A&O x 3 Deviation from normal: tearful Skin: no rash, normal turgor Dx/Plan - Plan Plan: ##Acute hypoxic respiratory failure 2/2 fluid overload and HD non-compliance HD compliance seems to be consistently due to his chronic diarrhea as he is unable to finish/tolerate most of his sessions due to this. I believe that this to be an important barrier in his ability to have dialysis. Encouraged patient to keep track of foods that contribute to this, continue with antidiarrheals and close follow up with PCP for this. CXR showed chronic pleural effusion -covid 19 neg ##Anion gap metabolic acidosis 2/2 uremia stable, nephro consulted. BUN 95, beta hydroxybutyrate was 1.3, glucose 330, and anion gap 19 on admission dialysis BUN 46/9.48 today ##ESRD on hemodialysis -on [facility], Dr. Gonzalez, on board; appreciate the recs. - pt will go for dialysis today ##L subclavian vein thrombosis Previous admission LUE doppler: acute thrombus of L subclavian vein. Chronic thrombus of AV fistula LUE. 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 Was started on eliquis 5 mg bid. Discussed with Pharmacy about dosing and agreed upon 5 mg bid to start and stay on as pt on HD. discussed risks vs benefits of continuing this considering hematochezia. Pt desires to continue as of now eliquis 5mg BID ##Hematochezia likely 2/2 hemorrhoids FOBT neg continuing eliquis for now as stated below for DVT ##Chronic Diarrhea -MD aware, home meds -See above note for this ##HTN -aware, will restart home meds ##Depression/Anxiety -quiescent, will restart home meds ##Drug Abuse -Marijuana and PCP abuse ##HLD -aware, will restart home meds VTE: eliquis 5 mg bid Diet: CC PCP: Mela Hardwick Dispo: tele, observation. ELOS < 48 hours. improved today. HD session again today. will re-assess afterwards. Addendum - Attending - Attending Attestation Date/Time: 06/12/20 2085 I personally evaluated the patient and discussed the management with the team. I agree with the History, Examination, Assessment and Plan documented above with any addition or exceptions noted below.
[2020-06-12] MEDS ORDERED: Cinacalcet HCl 30 MG TAB PO SCH (09:00)
[2020-06-12] MEDS ORDERED: Insulin Glargine 20 UNITS in Pre-Filled Syringe 1 EACH SC SCH (09:00)
--- NOTE | 2020-06-12 09:03 | CON ---
DATE OF CONSULTATION: 06/11/2020 CONSULTING PHYSICIAN: Dr. Abigail Pearce. REASON FOR CONSULTATION: End-stage renal disease evaluation and care. REASON FOR ADMISSION: Shortness of breath. HISTORY OF PRESENT ILLNESS: This is a 39-year-old male with history of end-stage renal disease, hypertension, CVA, and hyperlipidemia, came to the hospital with shortness of breath. He missed dialysis for few days and he is a frequent flyer to the hospital with noncompliance on dialysis. Denies any chest pain. He does not feel good, but cannot explain why. PAST MEDICAL HISTORY: Positive for end-stage renal disease, type 1 diabetes, hypertension, hyperlipidemia, CVA, anxiety, depression, and DVT. PAST SURGICAL HISTORY: BKA, dialysis access surgery. HOME MEDICATIONS: Reviewed. ALLERGIES: PENICILLIN. SOCIAL HISTORY: History of substance abuse and alcohol use and smoking in the past. FAMILY HISTORY: No history of any kidney disease. REVIEW OF SYSTEMS: CONSTITUTIONAL: Negative for weight loss or gain, ability to conduct usual activities. SKIN: Negative for rash, itching. EYES: Negative for double vision, pain. ENT/MOUTH: Negative for nose bleeding, neck stiffness, pain, tenderness. CARDIOVASCULAR: Negative for palpitations, dyspnea on exertion, orthopnea. RESPIRATORY: Negative for shortness of breath, wheezing, cough, hemoptysis, fever or night sweats. GASTROINTESTINAL: Negative for poor appetite, abdominal pain, heartburn, nausea, vomiting, constipation, or diarrhea. GENITOURINARY: Negative for urgency, frequency, dysuria, nocturia. MUSCULOSKELETAL: Negative for pain, swelling. NEUROLOGIC/PSYCHIATRIC: Negative for anxiety, depression. ALLERGY/IMMUNOLOGIC: Negative for skin rash, bleeding tendency. PHYSICAL EXAMINATION: GENERAL: This is a well-built male, in no apparent distress. VITAL SIGNS: Temperature 97.9, pulse 90, respiratory rate 18, and blood pressure 116/78. HEENT: Atraumatic, normocephalic. Oral mucosa moist. NECK: Supple. CV: S1 and S2. Rate and rhythm regular. RESPIRATORY: Clear. GASTROINTESTINAL: Abdomen is soft. MUSCULOSKELETAL: 2+ edema. DERMATOLOGIC: No skin rash. NEUROLOGICAL: Alert and awake. PSYCHIATRIC: Mood and affect normal. LABORATORY DATA: Hemoglobin is 8.2. Potassium 5.0, BUN is 95, and creatinine is 15.1. ASSESSMENT AND PLAN: 1. End-stage renal disease. Plan is to have dialysis today. 2. Edema. We will remove fluid. 3. Fluid overload. 4. Hyperkalemia. 5. History of hypertension. 6. Anemia of chronic disease. 7. Hyponatremia. 8. Hypoalbuminemia. 9. Noncompliance consult. Plan to have dialysis today, then continue dialysis on Monday, Monday, and Monday. Remove fluid with dialysis as tolerated. Limit potassium intake. Prognosis guarded. We will continue to follow. Thank you for the consult. Job ID: [id number]
--- NOTE | 2020-06-12 10:01 | PRG ---
DATE OF SERVICE: 06/12/2020 SUBJECTIVE: Patient was seen and examined at bedside and overnight events noted. Patient denies any shortness of breath or chest pain or palpitation. No history of nausea or vomiting or diarrhea or fever or chills or cramps. OBJECTIVE: GENERAL: This is a well-built male, in no apparent distress. VITAL SIGNS: Temperature 97.8, heart rate 92, respiratory rate 18, blood pressure 131/65. HEENT: Atraumatic, normocephalic. Oral mucosa is moist. Neck: Supple. CARDIOVASCULAR: S1, S2 heard. Rate and rhythm regular. RESPIRATORY: Clear to auscultation. GASTROINTESTINAL: Abdomen is soft. MUSCULOSKELETAL: No tenderness. No edema. DERMATOLOGIC: No skin rash. NEUROLOGIC: Alert and awake and oriented x3. No focal neurologic deficits. Moving all the extremities. PSYCHIATRIC: Mood and affect normal. LABORATORY DATA: Potassium 4.9, BUN is 46, and creatinine is 9.4. ASSESSMENT AND PLAN: 1. End-stage renal disease. We will continue dialysis as tolerated Monday, Monday, and Monday. 2. Edema. 3. Hyperkalemia. 4. Hypertension. 5. Anemia of chronic disease. Plan to have dialysis as tolerated today and Monday, Monday, Monday as tolerated. The patient was counseled to be compliant with his sessions as tolerated. Job ID: [id number]
[2020-06-12] MEDS: Sevelamer Carbonate 800 MG TAB PO SCH ×2 (14:44)
[2020-06-12 14:53] VITALS: BMI 20.4
[2020-06-12 17:21] VITALS: TEMP 97.9
[2020-06-12 17:36] VITALS: BP 139/63
--- NOTE | 2020-06-12 19:43 | DIS ---
DATE OF ADMISSION: 06/11/2020 DATE OF DISCHARGE: 06/12/2020 RESIDENT: Jennifer Pearce DO ADMITTING ATTENDING: Rashard Yoon MD DISCHARGE ATTENDING: Rashard Yoon MD CONSULTS: Dr. Gonzalez and Dr. Hurd of Nephrology. PROCEDURES: Chest x-ray done on 06/11/2020 showed opacification of the right hemithorax is again seen. Left lung is clear. The heart size is normal. Vascular stents are again noted bilaterally. No pneumothoraces. The left pleural effusion is seen. PRIMARY DIAGNOSES: Acute hypoxic respiratory failure, most likely secondary to volume overload and anion gap metabolic acidosis, most likely secondary to uremia. SECONDARY DIAGNOSES: History of left subclavian deep venous thrombosis, end- stage renal disease on hemodialysis, type 1 diabetes, chronic diarrhea, hypertension, hyperlipidemia, depression, anxiety, and substance abuse. DISCHARGE MEDICATIONS: 1. Renvela 2400 mg p.o. t.i.d. 2. Sensipar 60 mg p.o. daily. 3. Amlodipine 10 mg p.o. daily. 4. Sertraline 25 mg p.o. daily. 5. Tylenol 650 mg p.o. q.4. 6. Humalog 3 units subcu t.i.d. 7. Keppra 500 mg p.o. b.i.d. 8. Lomotil 2 tablets p.o. t.i.d. 9. Aspirin 81 mg p.o. daily. 10. Eliquis 5 mg p.o. b.i.d. 11. Lantus 20 units subcu q.a.m. DISCONTINUED MEDICATIONS: None. HISTORY OF PRESENT ILLNESS/HOSPITAL COURSE: This is a very pleasant 39-year- old male, who presents after several days of feeling shortness of breath. He has history of end-stage renal disease and had not gone to dialysis for a week and states he did not feel up to going due to his chronic diarrhea. He had not been having fever, chills, or any sick contacts. At last hospitalization, he was diagnosed with subclavian DVT, and was started on Eliquis. He states that he was taking his medication b.i.d. daily, as prescribed. The patient presented hypoxic in the high 80s on room air and then was saturating at 95% on 2 L of nasal cannula. He had hemodialysis on day of admission and then, proceeded to have hemodialysis the following day for the full 4 hours. The patient was not requiring nasal cannula during the group manager of the day of discharge and throughout the rest of that day. He stated that he was feeling much better after his second round dialysis. The patient was encouraged and counseled extensively on keeping his dialysis appointments and the patient agreed to plan and voiced understanding and stated that he had no barriers to going to his dialysis appointments. Encouraged close followup with PCP and encouraged him to keep his appointments, the patient voiced understanding. Encouraged patient to also talk in length with PCP about his chronic diarrhea issue. He was tested for c.diff during this admission and it was positive for Ag (like it has been in the past) but not positive for toxin. DISPOSITION: Stable. DISCHARGE INSTRUCTIONS: Location, home. Diet, renal. Activity, as tolerated. Follow up in 1 to 2 weeks with primary care physician. Job ID: [id number] MTDD
--- NOTE | 2020-06-20 15:32 | EKG ---
Test Reason : Blood Pressure : / mmHG Vent. Rate : 081 BPM Atrial Rate : 081 BPM P-R Int : 164 ms QRS Dur : 082 ms QT Int : 404 ms P-R-T Axes : 065 077 030 degrees QTc Int : 469 ms Normal sinus rhythm Low voltage QRS Cannot rule out Anteroseptal infarct , age undetermined Abnormal ECG Confirmed by TOMI SANDRA DO ([id number]), editor & co founder ABRIL VAZQUEZ ([id number]) on 06/20/2020 3:32:31 PM Referred By: Confirmed By:TOMI SANDRA DO
== END 2020-06-12 17:50 | disposition home or self-care (01) ==
LOC: EDBD → ERS 11:33 → 2NO 13:35
PROVIDERS: ADMIT Emergency Medicine; ATTEND Emergency Medicine
DX: E87.70 Fluid overload, unspecified (principal); J96.01 Acute respiratory failure with hypoxia; I12.0 Hypertensive chronic kidney disease with stage 5 chronic kidney disease or end stage renal disease; E10.22 Type 1 diabetes mellitus with diabetic chronic kidney disease; N18.6 End stage renal disease; E78.5 Hyperlipidemia, unspecified; F41.9 Anxiety disorder, unspecified; F32.9 Major depressive disorder, single episode, unspecified; K52.9 Noninfective gastroenteritis and colitis, unspecified; K57.93 Diverticulitis of intestine, part unspecified, without perforation or abscess with bleeding; F12.10 Cannabis abuse, uncomplicated; Z20.828 Contact with and (suspected) exposure to other viral communicable diseases; Z79.01 Long term (current) use of anticoagulants; Z79.4 Long term (current) use of insulin; Z79.82 Long term (current) use of aspirin; Z79.899 Other long term (current) drug therapy; Z86.73 Personal history of transient ischemic attack (TIA), and cerebral infarction without residual deficits; Z91.15 Patient's noncompliance with renal dialysis; Z99.2 Dependence on renal dialysis
CPT/HCPCS: 71045; 80048; 80053; 80307; 82010; 82274; 82962 ×2; 83605; 84484; 85025 ×2; 87040; 87324; 87449; 87493; 93005; 99285; U0002; 36415; 36416; 90935; G0257; G0378; J1815

== ENCOUNTER 2020-06-26 11:16 | Inpatient (IN) | payer MEDICARE, MEDICAID, OTHER ==
[2020-06-26 12:05] LABS: ALT (SGPT) 9 U/L (8-55); AST (SGOT) 13 U/L (5-34); Albumin 3.5 g/dL (3.5-5.0); Alkaline Phosphatase 148 U/L (40-110); Anion Gap 30 mmol/L (10-20); BUN (Urea Nitrogen) 102 mg/dL (8.9-20.6); Bilirubin, Total 0.4 mg/dL (0.2-1.2); Calc. Creatinine Clearance 0 mL/min (70-130); Chloride 102 mmol/L (98-107); Estimated GFR-MDRD 6; Globulin 3.4 g/dL (2.4-3.5); Glucose 330 mg/dL (70-105); Lipase 21 U/L (8-78); Magnesium 2.9 mg/dL (1.6-2.6); Protein, Total 6.9 g/dL (6.0-8.3); Sodium 133 mmol/L (136-145)
--- NOTE | 2020-06-26 12:05 | RAD ---
RADIOGRAPH CHEST 1 VIEW: DATE: 06/26/2020 TIME: 12:00 PM HISTORY: 39-year-old male with dyspnea COMPARISON: 06/11/2020 FINDINGS: There continues to be a large right pleural effusion but it has decreased in size since prior study. It currently opacifies the lower half to two thirds of the right hemithoracic cavity. Infiltrate-like densities in the right perihilar upper lobe remain. No pneumothorax or pulmonary polo a. Left lung is grossly clear. Multiple left brachial, axillary, and subclavian vascular stents. No cardiomegaly. No pneumothorax. IMPRESSION: 1) interval decrease in volume of right pleural effusion, but large amount of pleural fluid remains, opacifying much of the right lung. 2) no pneumothorax..
[2020-06-26 12:12] LABS: Carbon Dioxide 9 mmol/L (22-29); Potassium 8.2 mmol/L (3.5-5.1)
[2020-06-26 12:13] LABS: #Eosinphils 0.1 thou/uL (0.0-0.7); #Lymphocytes 0.9 thou/uL (1.20-3.40); #Monocytes 0.6 thou/uL (0.11-0.59); #Neutrophils 5.4 thou/uL (1.40-6.50); %Basophils 0.3 % (0.0-1.0); %Eosinophils 0.9 % (0.0-10.0); %Lymphocytes 12.6 % (21.0-51.0); %Monocytes 9.1 % (0.0-10.0); %Neutrophils 77.2 % (42.0-75.0); Mean Corpuscular HGB CONC 31.6 g/dL (32.0-36.0); Mean Corpuscular Hemoglobin 29.4 pg (27.0-31.0); Mean Corpuscular Volume 92.9 fL (78.0-98.0); Mean Platelet Volume 11.1 fL (7.4-10.4); Platelet Count 149 thou/uL (130-400); RBC Distribution Width 17.6 % (11.5-14.5); Red Blood Cell (RBC) Count 3.07 mill/uL (4.70-6.10)
[2020-06-26] MEDS ORDERED: Calcium Gluconate 9.2 MEQ in Sodium Chloride 0.9% 100 ML IVPB SCH (12:45)
[2020-06-26] MEDS ORDERED: Sodium Bicarb 50 MEQ/50 ML Abboject 8.4% SYRINGE ONE (13:57)
[2020-06-26] MEDS ORDERED: Calcium Gluc 4.6 MEQ/10 ML (100 MG/ML) ONE (13:57)
--- NOTE | 2020-06-26 14:06 | RAD ---
RADIOGRAPH CHEST 1 VIEW: DATE: 06/26/2020 TIME: 2:01 PM HISTORY: Central line placement COMPARISON: 06/26/2020 12 00 p.m. FINDINGS: There is a new vertically oriented central vascular catheter descending from the right neck, with tip overlying the right mediastinum, in the vicinity of the SVC. No pneumothorax. The large right pleural effusion with underlying consolidation is again noted. There is pulmonary venous congestion w hich appears worse now. New finding of pulmonary interstitial edema in the left mid and lower lung zones. IMPRESSION: 1) status post right internal jugular central venous catheter placement without pneumothorax. 2.) Interval development of mild pulmonary interstitial edema, consistent with fluid volume overload
[2020-06-26] MEDS ORDERED: Insulin Regular 300 UNITS/3 ML VIAL ONE (14:15)
[2020-06-26] MEDS ORDERED: Dextrose 50% Abboject 50 ML SYRINGE ONE (14:17)
--- NOTE | 2020-06-26 14:26 | PDOC.FPRHP ---
- History of Present Illness Chief Complaint: AMS History of Present Illness: Patient presents to the ED due to missing his dialysis, noting he last went 1 week ago. He states that he feels pretty good and has no pain currently. He notes that he has been taking his blood sugar medications, last taken last night. He takes lantus and humalogue. Denies CP/SOB now, but notes before he came in had some dyspnea. Patient states his mom organizes his medicines in the mornings, but he is unsure if he is taking his Eliquis. ED Course: D50 1 amp insulin 10u sodium bicarb 2amp Calcium chloride 1g - Allergies/Adverse Reactions Allergies Allergy/AdvReac Type Severity Reaction Status Date / Time Penicillins Allergy Unknown Verified 06/26/20 13:37 - Home Medications Medication Instructions Recorded Confirmed Type Sevelamer Carbonate [Renvela] 2,400 mg PO TID-WM 09/08/15 06/26/20 History Amlodipine Besylate [amLODIPine 10 mg PO DAILY 09/02/16 06/26/20 History Besylate] Cinacalcet HCl [Sensipar] 60 mg PO DAILY 09/02/16 06/26/20 History Sertraline HCl 25 mg PO DAILY 03/03/17 06/26/20 History Acetaminophen [Tylenol Regular 650 mg PO Q4H PRN tab 09/27/18 06/26/20 Rx Strength] HumaLOG [HumaLOG Vial] 3 units SC TID-WM vial 11/26/19 06/26/20 Rx levETIRAcetam [Keppra] 500 mg PO BID #0 tab 11/26/19 06/26/20 Rx Diphenoxylate HCl/Atropine 2 tab PO TID PRN #60 tab 02/19/20 06/26/20 Rx [Lomotil] Aspirin [Ecotrin Low Strength] 81 mg PO DAILY 02/27/20 06/26/20 History Apixaban [Eliquis] 5 mg PO BID #60 tab 05/26/20 06/26/20 Rx Insulin Glargine [Lantus Vial] 20 units SC QAM vial 05/26/20 06/26/20 Rx - History PMHx: -ESRD on hemodialysis MWF -T1DM -HTN -HLD -Prior CVA x2 -anxiety/depression -subclavian DVT PSHx: R Knee Amputation, Dialysis ports FHx: HTN Social: Smoked marijuana and used PCP last night, no alcohol, no smoking - Review of Systems General: denies: fever/chills, weight/appetite/sleep changes Eyes: denies: eye pain, vision changes ENT: denies: nasal congestion, rhinorrhea Respiratory: reports: shortness of breath. denies: cough, congestion Gastrointestinal: reports: diarrhea. denies: nausea, vomiting, abdominal pain Genitourinary: denies: incontinence, dysuria Skin: denies: rashes, lesions Musculoskeletal: denies: pain, tenderness Neurological: denies: numbness, syncope Psychological: denies: anxiety, depression - Vital signs BP: 105/48, Pulse: 90, O2 sat: 93 on (Room Air), Wt 77kg - Physical Exam Constitutional: NAD, awake, alert and oriented HEENT: normocephalic and atraumatic, PERRLA Neck: supple, FROM -Heart: 2/6 Systolic Ejection murmur, best heard at Left lower sternal border, 1+ nonpitting edema in left leg Lungs: CTAB, no respiratory distress Abdomen: soft, non-tender, bowel sounds present -Musculoskeletal: R & L dialysis port; right knee amputation, no pulses detected LLE -Neurological: Patient awake and oriented x 3, however would smile and daze off in the middle of a thought, unable to track finger with eyes, states unable to wiggle his left toes Heme/Lymphatic: no unusual bruising or bleeding, no purpura FMR H&P: Results - Labs Result Diagrams: 06/26/20 11:57 06/26/20 11:32 Lab results: WBC 7.0 thou/uL (4.8-10.8) 06/26/20 11:57 Hgb 9.0 g/dL (14.0-18.0) L 06/26/20 11:57 Hct 28.5 % (42.0-52.0) L 06/26/20 11:57 MCV 92.9 fL (78.0-98.0) 06/26/20 11:57 Plt Count 149 thou/uL (130-400) 06/26/20 11:57 Neutrophils % 77.2 % (42.0-75.0) H 06/26/20 11:57 Sodium 133 mmol/L (136-145) L 06/26/20 11:32 Potassium 8.2 mmol/L (3.5-5.1) H* 06/26/20 11:32 Chloride 102 mmol/L (98-107) 06/26/20 11:32 Carbon Dioxide 9 mmol/L (22-29) L* 06/26/20 11:32 BUN 102 mg/dL (8.9-20.6) H 06/26/20 11:32 Creatinine 12.26 mg/dL (0.7-1.3) H 06/26/20 11:32 Glucose 330 mg/dL (70-105) H 06/26/20 11:32 Lactic Acid 0.8 mmol/L (0.5-2.2) 06/26/20 11:57 Calcium 7.0 mg/dL (7.8-10.44) L 06/26/20 11:32 Total Bilirubin 0.4 mg/dL (0.2-1.2) 06/26/20 11:32 AST 13 U/L (5-34) 06/26/20 11:32 ALT 9 U/L (8-55) 06/26/20 11:32 Alkaline Phosphatase 148 U/L (40-110) H 06/26/20 11:32 B-Natriuretic Peptide 155.5 pg/mL (0-100) H 06/26/20 11:57 Serum Total Protein 6.9 g/dL (6.0-8.3) 06/26/20 11:32 Albumin 3.5 g/dL (3.5-5.0) 06/26/20 11:32 Lipase 21 U/L (8-78) 06/26/20 11:32 - EKG Interpretation EKG: NS at 91, right axis deviation, no ST changes FMR H&P: A/P - Plan Acute encephalopathy 2/2 uremia and drug intoxication Reported PCP and marijuana use Skipped dialysis, last went 1 week ago BUN/Cr: 102/12.26, GFR 6 - emergent hemodialysis - monitor mental status - education on drug cessation AG metabolic acidosis Bicarb 9 on CMP - ABG ordered - BMPs q2hrs - HD as above - monitor acid-base status Hyperkalemia Na 133, CO2 9, K 8.2 -s/p Calcium chloride and albuterol in ED -HD, continue to check with BMP Type I DM BG 330 initially - 10u in ED with D50 - will give 10u now - moderate SS - glucose checks q1hour - will hold lantus and humalog now, restart once patient's eating ESRD on dialysis, non compliant M/W/F non compliant - case management consulted - PT/OT Chronic Pleural Effusion: -CXR appears volume overloaded, dialysis in process -no respiratory distress at this time Anemia - likely anemia of chronic disease Hgb 9.0 - will have f/u with PCP for further workup Hx of L subclavian DVT -Pt currently on Eliquis, non-compliant - will resume here Chronic Diarrhea Hx of frequent testing for cdiff, always antigen negative toxin positive - will give lamotil HTN - borderline hypotensive, will hold meds for now Hx of Drug-Induced Seizures On keppra at home - will check keppra level Dispo: stable, inpatient DVT PPx: home eliquis GI PPx: none Code Status: Full FMR H&P: Upper Level - Plan Date/Time: 06/26/20 1423 IIbis DO, have evaluated this patient and agree with findings/plan as outlined by director internal communications resident. Pertinent changes/additions are listed here. Pt is a 39 yo M with PMH of ESRD on HD, T1DM, HTN, recurrent DVT, and noncompliance with dialysis requiring multiple admissions presents to ED for missed dialysis. Last dialysis about [address] Gonzalez. Reports PCP and cannabis use last night. VS: BP116/55, P91, R16, O2 94%RA, Wt 77kg PE: Gen: NAD HEENT: Dry MM Heart: RRR, systolic murmur with S3 gallop Lungs: RLL with decreased breath sounds, no wheezing. No increased work of breathing Abd: soft, nontender, BS+, no masses or hernias Ext: R BKA, L ext with chronic venous stasis skin changes, some very superficial skin wounds without erythema, drainage Psych: AOx2, appears intoxicated Pertinent Labs/Imaging: BNP 155 LA 0.8 Hgb 9.0, MCV 92 Mg 2.9 Na 133, K 8.2, Cl 102, CO2 9, BUN 102, Cr 12.26 CXR: decrease in R pleural effusion in comparison A/P: Acute Metabolic Encephalopathy 2/2 Uremia and Acute Drug Intoxication: -Dr. Gonzalez consulted in ED, emergent dialysis in process -encourage drug cessation Anion Gap Metabolic Acidosis and Hyperglycemia: -likely largely secondary to uremia but borderlining DKA. -s/p 2amp of bicarb in ED. -ABG pending to further characterize acid/base status -BMPs q2h until bicarb improves -s/p humalog 10U in ED, however given with 1 amp of D50, repeat BS worsened -repeat humalog 10U and q1h accuchecks -monitor for need for IVF however will defer a this time d/t clinical Hyperkalemia -s/p Calcium chloride and albuterol in ED -HD, continue to check with BMP Chronic Pleural Effusion: -CXR appears volume overloaded, dialysis in process -no respiratory distress at this time Anemia of Chronic Disease: -lower than baseline but likely d/t volume overload. Drug Induced Seizures: -on Keppra in the past for this, unsure of compliance -Keppra level Subclavian DVT: -does not endorse recent Eliquis use, will restart Chronic Diarrhea: -has been thoroughly worked up outpatient, has hx of C. Diff Ag positive but never toxin positive. -continue home Lomotil HTN -BP boderline hypotensive, hold BP meds for now -restart when pressures rise. T1DM: -SSI for now, will restart home Lantus once he is eating Noncompliance: -CM consulted Dispo: stable, inpatient DVT PPx: home eliquis GI PPx: none Code Status: Full Addendum - Attending - Attending Attestation Date/Time: 06/26/20 1390 I personally evaluated the patient and discussed the management with Dr. Moss/ Ioana. I agree with the History, Examination, Assessment and Plan documented above with any addition or exceptions noted below. Patient here with complications due to noncompliance with insulin therapy for DM1 as well as failure to have his scheduled HD. He is hyperkalemic and hyperglycemic. Anion gap metabolic acidosis, caused from combo of ESRD and possible mild DKA. He will go for emergent HD, trend labs closely, give insulin to obtain euglycemia. Suspect most of this metabolic derangements will improve with these interventions. He is also currently in a state of euphoria from his admitted drug use in the last 24 hours.
[2020-06-26] MEDS ORDERED: Sodium Bicarb 50 MEQ/50 ML VIAL ONE (14:28)
[2020-06-26] MEDS ORDERED: Calcium Carbonate 500 MG ChewTAB PO PRN (14:29)
[2020-06-26] MEDS ORDERED: Acetaminophen 650 MG Suppository PR PRN (14:29)
[2020-06-26] MEDS ORDERED: Ondansetron ODT 4 MG TAB PO PRN (14:29)
[2020-06-26] MEDS ORDERED: Ondansetron PF 4 MG/2 ML Vial IVP PRN (14:29)
[2020-06-26] MEDS ORDERED: Acetaminophen 325 MG TAB PO PRN (14:29)
[2020-06-26 15:08] VITALS: BMI 24.6
[2020-06-26 15:36] LABS: Actual Bicarbonate (HCO3a) 11.4 mEq/L (22-28); Base Excess (BEa) -15.8 mEq/L (-2.0 to +3.0); CO2 Tension 31.8 mmHg (35.0-45.0); Calcium, Ionized (arterial) 0.98 mmol/L (1.12-1.30); Carboxyhemoglobin (COHb) 1.2 gm% (0.0-3.0); Hemoglobin (Hb) 9.5 g/dL (14.0-18.0); O2 Tension (PaO2), arterial 85.8 mmHg (80.0-100.0); Potassium - ABG Lab 6.74 mmol/L (3.70-5.30)
[2020-06-26 15:37] LABS: pH, Arterial 7.17 (7.35-7.45)
[2020-06-26] MEDS ORDERED: Dextrose 5% in Water 1,000 ML IV PRN (15:41)
[2020-06-26] MEDS ORDERED: HumaLOG 300 UNITS/3 ML VIAL SC PRN ×2 (15:41)
[2020-06-26] MEDS ORDERED: Dextrose 50% Abboject 50 ML SYRINGE SLOW IVP PRN (15:41)
[2020-06-26] MEDS ORDERED: HumaLOG 300 UNITS/3 ML VIAL SC SCH (15:45)
[2020-06-26] MEDS ORDERED: Diphenoxylate HCl/Atropine Tablet PO PRN (16:29)
[2020-06-26 17:46] LABS: Anion Gap 20 mmol/L (10-20); BUN (Urea Nitrogen) 43 mg/dL (8.9-20.6); Calc. Creatinine Clearance 19 mL/min (70-130); Calcium 7.6 mg/dL (7.8-10.44); Carbon Dioxide 22 mmol/L (22-29); Chloride 99 mmol/L (98-107); Estimated GFR-MDRD 13; Glucose 165 mg/dL (70-105); Potassium 3.9 mmol/L (3.5-5.1); Sodium 137 mmol/L (136-145)
[2020-06-26] MEDS: Apixaban 5 MG TAB PO SCH (20:10)
[2020-06-26] MEDS: levETIRAcetam 500 MG TAB PO SCH (20:10)
[2020-06-26 22:30] LABS: Anion Gap 18 mmol/L (10-20); BUN (Urea Nitrogen) 48 mg/dL (8.9-20.6); Calc. Creatinine Clearance 16 mL/min (70-130); Calcium 7.3 mg/dL (7.8-10.44); Carbon Dioxide 26 mmol/L (22-29); Chloride 101 mmol/L (98-107); Estimated GFR-MDRD 11; Glucose 106 mg/dL (70-105); Potassium 4.6 mmol/L (3.5-5.1); Sodium 140 mmol/L (136-145)
[2020-06-27 00:35] LABS: Anion Gap 18 mmol/L (10-20); BUN (Urea Nitrogen) 49 mg/dL (8.9-20.6); Calc. Creatinine Clearance 16 mL/min (70-130); Calcium 7.1 mg/dL (7.8-10.44); Carbon Dioxide 25 mmol/L (22-29); Chloride 100 mmol/L (98-107); Estimated GFR-MDRD 10; Glucose 103 mg/dL (70-105); Potassium 4.9 mmol/L (3.5-5.1); Sodium 138 mmol/L (136-145)
[2020-06-27 05:00] LABS: #Eosinphils 0.1 thou/uL (0.0-0.7); #Monocytes 0.8 thou/uL (0.11-0.59); #Neutrophils 3.2 thou/uL (1.40-6.50); %Basophils 0.1 % (0.0-1.0); %Eosinophils 1.9 % (0.0-10.0); %Lymphocytes 20.6 % (21.0-51.0); %Monocytes 14.7 % (0.0-10.0); %Neutrophils 62.8 % (42.0-75.0); Hemoglobin 8.3 g/dL (14.0-18.0); Mean Corpuscular HGB CONC 31.4 g/dL (32.0-36.0); Mean Corpuscular Hemoglobin 28.6 pg (27.0-31.0); Mean Corpuscular Volume 91.2 fL (78.0-98.0); Platelet Count 139 thou/uL (130-400); RBC Distribution Width 17.4 % (11.5-14.5); White Blood Cell (WBC) Count 5.1 thou/uL (4.8-10.8)
[2020-06-27 05:26] LABS: Anion Gap 18 mmol/L (10-20); BUN (Urea Nitrogen) 51 mg/dL (8.9-20.6); Calc. Creatinine Clearance 15 mL/min (70-130); Calcium 6.7 mg/dL (7.8-10.44); Carbon Dioxide 24 mmol/L (22-29); Chloride 100 mmol/L (98-107); Estimated GFR-MDRD 10; Glucose 89 mg/dL (70-105); Potassium 5.3 mmol/L (3.5-5.1); Sodium 137 mmol/L (136-145)
--- NOTE | 2020-06-27 07:31 | CON ---
DATE OF CONSULTATION: 06/26/2020 CONSULTING PHYSICIAN: ER physician. REASON FOR CONSULTATION: End-stage renal disease evaluation and care. HISTORY OF PRESENT ILLNESS: This is a 39-year-old male with history of end-stage renal disease, hypertension, substance abuse, and diabetes, who missed dialysis for two more sessions again. He is a frequent flyer to the hospital. He was found with altered mentation and was sent to the hospital and is getting admitted to ICU. His potassium was elevated as well as creatinine and other renal labs. The patient is highly noncompliant with dialysis. PAST MEDICAL HISTORY: Positive for end-stage renal disease, type 1 diabetes, hypertension, hyperlipidemia, CVA, and DVT. PAST SURGICAL HISTORY: Dialysis access placement, BKA. HOME MEDICATIONS: Reviewed. ALLERGIES: PENICILLIN. SOCIAL HISTORY: History of substance abuse and alcohol and tobacco use. FAMILY HISTORY: No history of kidney disease. REVIEW OF SYSTEMS: Could not be obtained as patient had altered mentation. PHYSICAL EXAMINATION: GENERAL: This is a well-built male, in no apparent distress. VITAL SIGNS: Reviewed. HEENT: Atraumatic, normocephalic. NECK: Supple. CV: S1 and S2. Rate and rhythm regular. RESPIRATORY: Clear. GASTROINTESTINAL: Abdomen is soft. MUSCULOSKELETAL: No tenderness. No edema. DERMATOLOGIC: No skin rash. . LABORATORY DATA: Sodium 13, potassium 8.2, BUN is 102, creatinine is 12.2. ASSESSMENT AND PLAN: 1. End-stage renal disease. Plan to have dialysis. 2. Severe hyperkalemia. We will have emergent dialysis. 3. Acidosis secondary to missing dialysis. 4. Hypercalcemia. 5. Hypoalbuminemia. 6. Altered mentation. Prognosis is very poor. Plan is to have emergent dialysis. Dialysis nurse notified. Thank you for the consult. Job ID: [id number]
[2020-06-27] MEDS: Sevelamer Carbonate 800 MG TAB PO SCH ×3 (07:41→16:53)
--- NOTE | 2020-06-27 07:49 | PDOC.EVN ---
Addendum - Attending - Attending Attestation Date/Time: 06/27/20 5389 I personally evaluated the patient and discussed the management with Dr. Vero Rai. I agree with the History, Examination, Assessment and Plan documented in the progress note with any addition or exceptions noted below. Patient feeling improved. His lab derangements have improved now that he has received HD and insulin, both of which he was skipping in outpatient setting. Monitor glucose, discuss with nephro the need for continued HD during this hospitalization.
--- NOTE | 2020-06-27 07:57 | PDOC.FM ---
- Subjective Subjective: Pt is feeling well this morning. He got dialysis yesterday and says he was told he would be getting dialysis again today. He has no complaints at this time. He denied dyspnea/SOB/chest pain/V/D. - Objective Vital Signs & Weight: Vital Signs (12 hours) Temp Pulse Ox 06/27/20 07:18 93 L 06/27/20 07:00 97.9 F 06/27/20 04:00 98.1 F 06/27/20 00:00 97.6 F Weight Weight 80.1 kg Most Recent Monitor Data Heart Rate from ECG 87 NIBP 115/55 NIBP BP-Mean 75 Respiration from ECG 0 SpO2 77 I&O: 06/26/20 06/27/20 06/28/20 06:59 06:59 06:59 Intake Total 440 Output Total 0 0 Balance 440 0 Result Diagrams: 06/27/20 04:20 06/27/20 04:20 Phys Exam - Physical Examination Constitutional: NAD Neck: full ROM Crackles in R lung consistent with hx of chronic R pleural effusion. L lung CTA 2/6 Systolic Ejection murmur, loudest at L lower sternal border Neurological: non-focal Psychiatric: normal affect, A&O x 3 Dx/Plan - Plan Plan: Acute encephalopathy 2/2 uremia and drug intoxication - Reported PCP and marijuana use - Skipped dialysis, last went 1 week ago - BUN/Cr: 102/12.26, GFR 6 - Emergent hemodialysis on 06/26. BUN/Cr improved to 49/7.1 Repeat hemodialysis scheduled for 06/27 - Monitor mental status. A&O x3 on 06/27 - Education on drug cessation AG metabolic acidosis - Bicarb 9 on CMP on admission. Improved to 24 on 06/27. - ABG showed actual bicarb 11.4, pH 7.17. pCO2 31.8, pO2 85.8, Na 134, K 6.74, iCa 0.98 - Gap closed overnight. Start home Lantus - HD as above monitor acid-base status - Continue monitoring with BMPs Hyperkalemia - K 8.2 on admission corrected to 5.3 on 06/27 - s/p Calcium chloride and albuterol in ED - Gap closed overnight. Start home Lantus - HD as above - Continue to check with BMP Type I DM - BG 330 initially - 10u in ED with D50 - Gap closed, start home Lantus - Glucose checks ac/hs ESRD on dialysis, non compliant - Scheduled for M/W/F but pt is non compliant - CM consulted. Plan to discharge home - PT/OT eval pending - HD as above Chronic Pleural Effusion: - R sided, audible on PE - CXR appears volume overloaded, dialysis in process - No respiratory distress at this time. Continue to monitor Anemia - likely anemia of chronic disease - Hgb 9 on 06/26 and 8.3 on 06/27 - Monitor H/H and consider transfusion if drops below 7 - Will have f/u with PCP for further workup Hx of L subclavian DVT - Pt currently on Eliquis, non-compliant - Will resume here Chronic Diarrhea - Hx of frequent testing for cdiff, always antigen negative toxin positive - Will give lamotil - Denies D currently (06/27) HTN - BP starting to rise - Restart home Amlodipine Hx of Drug-Induced Seizures - On Keppra at home, non-compliant - Keppra level normal (06/27) - Admin Keppra here Dispo: stable, transfer to tele DVT PPx: home Eliquis GI PPx: none Code Status: Full
[2020-06-27] MEDS: Apixaban 5 MG TAB PO SCH ×2 (08:26→21:01)
[2020-06-27] MEDS: levETIRAcetam 500 MG TAB PO SCH ×2 (08:26→21:01)
[2020-06-27] MEDS: Cinacalcet HCl 30 MG TAB PO SCH (08:26)
[2020-06-27] MEDS ORDERED: Amlodipine 10 MG TAB PO SCH (10:00)
[2020-06-27] MEDS ORDERED: Insulin Glargine 20 UNITS in Pre-Filled Syringe 1 EACH SC SCH (10:00)
[2020-06-27 12:38] LABS: SARS-CoV-2 MS2 Positive; SARS-CoV-2 N Gene Negative; SARS-CoV-2 S Gene Negative; SARS-CoV-2 by NAA Not Detected (NotDetected); SARS-CoV-2 orf1ab Negative
--- NOTE | 2020-06-27 14:13 | PRG ---
DATE OF SERVICE: 06/27/2020 SUBJECTIVE: Patient was seen and examined at bedside and overnight events noted. Patient denies any shortness of breath or chest pain or palpitation. No history of nausea or vomiting or diarrhea or fever or chills or cramps. OBJECTIVE: GENERAL: This is well-built male, in no apparent distress. VITAL SIGNS: Temperature 97.9. Heart Rate 84. Respiratory rate . Blood pressure 93/45. HEENT: Atraumatic, normocephalic. Oral mucosa is moist. NECK: Supple. CARDIOVASCULAR: S1, S2 heard. Rate and rhythm regular. RESPIRATORY: Clear to auscultation. GASTROINTESTINAL: Abdomen is soft. MUSCULOSKELETAL: No tenderness. No edema. DERMATOLOGIC: No skin rash. NEUROLOGIC: Alert and awake and oriented x3. No focal neurologic deficits. Moving all the extremities. PSYCHIATRIC: Mood and affect normal. LABORATORY DATA: Potassium is 5.3, BUN is 51, and creatinine is 7.3. ASSESSMENT AND PLAN: 1. End-stage renal disease. Continue dialysis. 2. Severe hyperkalemia, better. 3. Acidosis. 4. Hypercalcemia. 5. Altered mentation. Labs are better. He will have extra dialysis today, then continue dialysis Monday, Monday, and Monday. Job ID: [id number]
[2020-06-27 16:13] LABS: HBSAg Index 0.18 S/CO (0-0.99); Hep B Surf Ag Non-Reactive S/CO (NonReactive)
[2020-06-28 04:30] LABS: #Basophils 0.1 thou/uL (0.0-0.2); #Eosinphils 0.1 thou/uL (0.0-0.7); #Lymphocytes 1.1 thou/uL (1.20-3.40); #Monocytes 0.7 thou/uL (0.11-0.59); %Basophils 1.8 % (0.0-1.0); %Eosinophils 1.9 % (0.0-10.0); %Lymphocytes 22.1 % (21.0-51.0); %Monocytes 13.7 % (0.0-10.0); %Neutrophils 60.5 % (42.0-75.0); Hemoglobin 8.5 g/dL (14.0-18.0); Mean Corpuscular HGB CONC 31.4 g/dL (32.0-36.0); Mean Corpuscular Volume 92.5 fL (78.0-98.0); Mean Platelet Volume 10.7 fL (7.4-10.4); Platelet Count 105 thou/uL (130-400); RBC Distribution Width 16.9 % (11.5-14.5); Red Blood Cell (RBC) Count 2.92 mill/uL (4.70-6.10); White Blood Cell (WBC) Count 4.9 thou/uL (4.8-10.8)
[2020-06-28 04:53] LABS: Anion Gap 17 mmol/L (10-20); BUN (Urea Nitrogen) 35 mg/dL (8.9-20.6); Calc. Creatinine Clearance 21 mL/min (70-130); Calcium 6.5 mg/dL (7.8-10.44); Carbon Dioxide 22 mmol/L (22-29); Chloride 102 mmol/L (98-107); Estimated GFR-MDRD 15; Glucose 77 mg/dL (70-105); Potassium 4.4 mmol/L (3.5-5.1); Sodium 137 mmol/L (136-145)
--- NOTE | 2020-06-28 05:24 | PDOC.FM ---
- Subjective Subjective: Mr. Brush is doing well this morning and has no complaints. He received dialysis again yesterday and is scheduled to go back to his [facility] dialysis schedule. He endorses D which is chronic for him. He takes Lomotil at home but states it does not help much; he is not Lomotil here. He is feeling pretty sleepy which he says is because he never sleeps well in the hospital. He is going to try to eat today and had his breakfast laid out in front of him. He denies dyspnea/SOB/CP/V/edema/pain on his sacrum. - Objective Vital Signs & Weight: Vital Signs (12 hours) Temp Pulse Resp BP Pulse Ox 06/28/20 03:01 97.2 F L 81 15 126/59 L 93 L 06/27/20 19:59 93 L 06/27/20 19:26 97.9 F 88 18 125/71 93 L Weight Admit Weight 80.1 kg Weight 73.754 kg Most Recent Monitor Data Heart Rate from ECG 84 NIBP 93/45 NIBP BP-Mean 61 Respiration from ECG 20 SpO2 85 I&O: 06/26/20 06/27/20 06/28/20 06:59 06:59 06:59 Intake Total 440 1140 Output Total 0 3600 Balance 440 -2460 Result Diagrams: 06/28/20 04:15 06/28/20 04:15 Phys Exam - Physical Examination Constitutional: NAD (Sitting up comfortably in bed. Sitting on inflated padding on top of his mattress. Looks tired; his eyes are half closed.) Neck: supple CTAB b/l in upper lobes. Unsure about mid/lower lobes b/c uncooperative Cardiovascular: RRR (2/6 systolic murmur heard best at apex. Endorses hx of murmur) Musculoskeletal: no edema (in UE or LE b/l), pulses present (radial pulses 2+ b/ l) Neurological: non-focal, moves all 4 limbs Psychiatric: normal affect, A&O x 3 Skin: no rash -: Multiple scars and open sores on LLE and on UE b/l. Not new, per pt Dx/Plan - Plan Plan: ESRD on dialysis, non compliant - Scheduled for M/W/F but pt is non compliant - CM consulted. Plan to discharge home - HD as above - Reiterate importance of compliance with dialysis Type I DM - BG 330 on arrival - 10u in ED with D50 - Gap closed, started home Lantus 06/27 - Glucose checks ac/hs - BGs improving, <200 Sacral ulcers - Documented by wound care - On inflated mattress topper - Frequent turning - Monitor Chronic Diarrhea - Hx of frequent testing for cdiff, always antigen negative toxin positive - Takes Lomotil at home which doesn't help Acute encephalopathy 2/2 uremia and drug intoxication - Reported PCP and marijuana use - Skipped dialysis, last went 1 week prior to admission - BUN/Cr: 35/5.3, eGFR 15 - Emergent hemodialysis on 06/26. Repeat hemodialysis on 06/27 Nephro recs for scheduled MWF dialysis - A&O x3 on 06/28 - Education on drug cessation AG metabolic acidosis - Bicarb 9 on CMP on admission. Improved to 22 on 06/28. - ABG on 06/26 showed actual bicarb 11.4, pH 7.17. pCO2 31.8, pO2 85.8, Na 134, K 6.74, iCa 0.98 - Gap closed by 06/27 am. Started home Lantus on 06/27. BGs improving - HD as above - Continue monitoring with BMPs and accu-checks Hx of L subclavian DVT - Pt currently on Eliquis, non-compliant - Will resume here - Reiterate importance of taking Eliquis Chronic Pleural Effusion: - R sided, audible on PE - CXR appears volume overloaded, dialysis in process - No respiratory distress at this time. Continue to monitor Hyperkalemia - K 8.2 on admission corrected to 4.4 on 06/28 - s/p Calcium chloride and albuterol in ED - Gap closed by 06/27 am. Started home Lantus 06/27 - HD as above - Continue to check with BMP Anemia - likely anemia of chronic disease - Hgb has been stable since admission - Monitor H/H and consider transfusion if drops below 7 - Will have f/u with PCP for further workup HTN - BP starting to rise - Restarted home Amlodipine on 06/27 but SBPs stayed in 120s - Has a hx of BPs resolving once no longer fluid overloaded. - SBP continues to be in 120s. Continue to hold Amlodipine. Hx of Drug-Induced Seizures - On Keppra at home, non-compliant - Keppra level normal (06/27) - Admin Keppra here - Drug cessation education Dispo: ready for discharge home DVT PPx: home Eliquis GI PPx: none Code Status: Full Addendum - Attending - Attending Attestation Date/Time: 06/28/20 0708 I personally evaluated the patient and discussed the management with Dr. Vero Rai. I agree with the History, Examination, Assessment and Plan documented above with any addition or exceptions noted below. Patient stable. Labs normalizing. Glucose improved. Awaiting further nephro recs but patient likely nearing stability for discharge.
[2020-06-28] MEDS ORDERED: Insulin Glargine 20 UNITS in Pre-Filled Syringe 1 EACH SC SCH (09:00)
[2020-06-28] MEDS ORDERED: Amlodipine 10 MG TAB PO SCH (09:00)
[2020-06-28] MEDS: Cinacalcet HCl 30 MG TAB PO SCH (09:09)
[2020-06-28] MEDS: Sevelamer Carbonate 800 MG TAB PO SCH ×2 (09:09→11:38)
[2020-06-28] MEDS: levETIRAcetam 500 MG TAB PO SCH (09:10)
[2020-06-28] MEDS: Apixaban 5 MG TAB PO SCH (09:12)
[2020-06-28 11:44] VITALS: BP 136/75; TEMP 96.5
--- NOTE | 2020-06-28 14:26 | PRG ---
DATE OF SERVICE: 06/28/2020 SUBJECTIVE: Patient was seen and examined at bedside and overnight events noted. Patient denies any shortness of breath or chest pain or palpitation. No history of nausea or vomiting or diarrhea or fever or chills or cramps. OBJECTIVE: GENERAL: This is a well-built male, in no apparent distress. VITAL SIGNS: Temperature 96.5. Heart rate 80. Respiratory rate 18. Blood pressure 136/75. HEENT: Atraumatic, normocephalic. Oral mucosa is moist NECK: Supple. CARDIOVASCULAR: S1, S2 heard. Rate and rhythm regular. RESPIRATORY: Clear to auscultation. GASTROINTESTINAL: Abdomen is soft. MUSCULOSKELETAL: No tenderness. No edema. DERMATOLOGIC: No skin rash. NEUROLOGIC: Alert and awake and oriented X3. No focal neurologic deficits. Moving all the extremities. PSYCHIATRIC: Mood and affect normal. LABORATORY DATA: Potassium 4.4, BUN is 35, creatinine is 5.3. ASSESSMENT AND PLAN: 1. End-stage renal disease. Continue dialysis on Monday, Monday, and Monday. 2. Hyperkalemia, better. 3. Acidosis. 4. Edema. 5. History of hypertension. 6. Labs are much better. Continue dialysis on Monday, Monday, and Monday. 7. Noncompliance. The patient counseled. Job ID: [id number]
--- NOTE | 2020-06-30 05:20 | PQF ---
Dear : Efraín Vides Date : 06/30/2020 Please exercise your independent, professional judgment in responding to the clarification form. Clinical indicators are provided on the bottom of this form for your review Can you please further clarify the renal status of the patient? Please check appropriate box(es): [ ] Acute Renal Failure on ESRD [ ] ESRD [ ] Other diagnosis please specify [ ] Unable to determine Physician Signature: Date/Time: For continuity of documentation, please document condition throughout progress notes and discharge summary. Thank You. To be completed by CDI/Coding staff for physician review: Present Clinical Indicators - Signs / Symptoms / Labs Results and Location in Medical Record [ x ] Crea: 12.26H, 5.81H, 6.98H, 7.13H, 7.30H, 5.33H Laboratory [ x ] Presents to ED due to missing his dialysis, noting he last went 1 week ago. Family H and P pg.1 [ x ] Encephalopathy 2/2 uremia and drug intoxication H and P pg.3 [ x ] Anion gap metabolic acidosis and hyperglycemia likely 2/2 uremia H and P pg.6 [ x ] Uremia ED Provider pg.3 [ x ] Reports Fatigue ED Notes 06/26 [ x ] BUN: 06/2665=371 06/27=51 06/28=35 Labs 06/26 [ x ] GFR: 06/26=6 06/27=10 06/28=15 Labs 06/26 Present Risk Factors Results and Location in Medical Record [ x ] ESRD on hemodialysis H and P pg.2 [ x ] Non complaint H and P pg.2 [ x ] DM1 H and P pg.2 [ x ] HTN H and P pg.2 [ x ] HLD H and P pg.2 [ x ] Prior CVA H and P pg.2 [ x ] Anxiety/ depression H and P pg.2 [ x ] Hyperkalemia HP 06/26 Present Treatments Results and Location in Medical Record [ x ] IV fluid challenge result DEC [ x ] Pharmacy / nephrology consult Dr. Hurd 06/26 [ x ] Dialysis Event note [ x ] Correction of electrolytes / acidosis Laboratory [ x ] Creatinine monitoring Laboratory [ x ] Nephrology Consult Consult 06/26 [ x ] Sodium Bicarbonate 50meq IV DEC 29 CDS/Needle Punch Machine Operator Signature: Jesus Rowland Phone #: ext [phone] Date/Time:06/30/20 This is a permanent part of the Medical Record [facility]
--- NOTE | 2020-06-30 10:41 | DIS ---
DATE OF ADMISSION: 06/26/2020 DATE OF DISCHARGE: 06/28/2020 RESIDENT: Shannan Emmanuel MD. ADMITTING ATTENDING: Efraín Mckinley M.D. DISCHARGING ATTENDING: Efraín Mckinley MD. CONSULTS: Nephrology ([place], 06/26) PROCEDURE: Central line placed in the ED (06/26), hemodialysis x2. PRIMARY DIAGNOSIS: Metabolic encephalopathy 2/2 uremia and drug abuse. SECONDARY DIAGNOSES: ESRD on hemodialysis, AG metabolic acidosis, hyperkalemia, type 1 diabetes, CVA x2, HTN, HLD, R BKA DISCHARGE MEDICATIONS: 1. Cinacalcet. 2. Lomotil 2.5 mg/0.025 mg two tabs t.i.d. 3. Keppra 500 mg. 4. Sertraline 25 mg. 5. Renvela 800 mg 3 tabs t.i.d. 6. Eliquis 5 mg b.i.d. 7. Aspirin 81 mg s.i.d. 8. Humalog 3 units subcu t.i.d. 9. Insulin glargine 20 units subcu q.a.m. Discontinued Medications: None HISTORY OF PRESENT ILLNESS/HOSPITAL COURSE: The patient is a 39-year-old male that presented to the ED due to altered mental status 2/2 skipping dialysis for 1 week. He had a BUN of 102, creatinine of 12.26, potassium of 8.2, AG metabolic acidosis with a bicarb of 9 on CMP and actual bicarb of 11.4 on ABG. He had a hemoglobin of 9 suspected to be due to anemia of chronic disease. Chest x-ray on arrival had showed a right pleural effusion consistent with fluid overload. Nephrology was consulted on 06/26 and recommended emergent dialysis. Anion gap closed by 06/27 and he received a second course of dialysis that day. On arrival, his systolic blood pressure was elevated but, as fluid was removed, his pressures came down. Hep B surface antigen was nonreactive. On 06/27, Wound Care saw him for the development of 2 sacral ulcers. By 06/28, his BUN had improved to 35 and creatinine had improved to 5.33. Dr. Hurd recommended reinstatement of MWF dialysis. DISPOSITION: Stable. DISCHARGE INSTRUCTIONS: Location: Home. Diet: Diabetic. Activity: As tolerated. Followup: Dialysis Monday/Monday/Monday; followup with Dr. Hardwick (PCP) within the next week. Job ID: [id number] MTDD
--- NOTE | 2020-07-04 15:25 | EKG ---
Test Reason : Blood Pressure : / mmHG Vent. Rate : 091 BPM Atrial Rate : 091 BPM P-R Int : 196 ms QRS Dur : 122 ms QT Int : 386 ms P-R-T Axes : 049 249 059 degrees QTc Int : 474 ms Normal sinus rhythm Right superior axis deviation Possible Anteroseptal infarct , age undetermined Abnormal ECG Confirmed by TOMI SANDRA DO ([id number]), website/blog editor VINI DE LA CRUZ ([id number] on 07/04/2020 3:24:28 PM Referred By: Confirmed By:TOMI SANDRA DO
== END 2020-06-28 16:04 | disposition home health service (06) | DRG 896 ==
LOC: ERS 11:16 → CCU 13:25 → 2NO 14:43 → CCU 14:54 → 2NO 06-27 11:18
PROVIDERS: ADMIT Student in an Organized Health Care Education/Training Program; ATTEND Student in an Organized Health Care Education/Training Program
PROC: 5A1D70Z Performance of Urinary Filtration, Intermittent, Less than 6 Hours Per Day (ICD-10-PCS; principal; 2020-06-26)
PROC: 02HV33Z Insertion of Infusion Device into Superior Vena Cava, Percutaneous Approach (ICD-10-PCS; 2020-06-26)
DX: F12.129 Cannabis abuse with intoxication, unspecified (principal); G93.41 Metabolic encephalopathy; N18.6 End stage renal disease; I13.2 Hypertensive heart and chronic kidney disease with heart failure and with stage 5 chronic kidney disease, or end stage renal disease; J90 Pleural effusion, not elsewhere classified; E87.2 Acidosis; E87.5 Hyperkalemia; Z20.828 Contact with and (suspected) exposure to other viral communicable diseases; E10.22 Type 1 diabetes mellitus with diabetic chronic kidney disease; E78.5 Hyperlipidemia, unspecified; F17.210 Nicotine dependence, cigarettes, uncomplicated; E78.00 Pure hypercholesterolemia, unspecified; F41.9 Anxiety disorder, unspecified; F32.9 Major depressive disorder, single episode, unspecified; D63.1 Anemia in chronic kidney disease; E10.65 Type 1 diabetes mellitus with hyperglycemia; E88.09 Other disorders of plasma-protein metabolism, not elsewhere classified; T50.905A Adverse effect of unspecified drugs, medicaments and biological substances, initial encounter; L89.152 Pressure ulcer of sacral region, stage 2; F19.10 Other psychoactive substance abuse, uncomplicated; K59.09 Other constipation; Z99.2 Dependence on renal dialysis; Z89.511 Acquired absence of right leg below knee; Z88.0 Allergy status to penicillin; Z79.82 Long term (current) use of aspirin; Z79.4 Long term (current) use of insulin; Z79.899 Other long term (current) drug therapy; Z79.01 Long term (current) use of anticoagulants; Z86.718 Personal history of other venous thrombosis and embolism; Z91.15 Patient's noncompliance with renal dialysis
CPT/HCPCS: 36415; 36416; 36556; 71045; 80048; 80053; 80177; 82010; 82805; 83605; 83690; 83735; 83880; 84484; 85025; 87340; 87635; 90935; 93005; 96374; 96375; 96376; G0257; J1815; J3490; U0003

== ENCOUNTER 2020-07-31 08:11 | Inpatient (IN) | payer MEDICARE, MEDICAID, OTHER ==
[2020-07-31 08:57] LABS: Hemoglobin 11.7 g/dL (14.0-18.0); Mean Corpuscular HGB CONC 31.5 g/dL (32.0-36.0); Mean Corpuscular Hemoglobin 29.6 pg (27.0-31.0); Mean Corpuscular Volume 93.7 fL (78.0-98.0); Mean Platelet Volume 12.4 fL (7.4-10.4); Platelet Count 132 thou/uL (130-400); RBC Distribution Width 17.4 % (11.5-14.5); Red Blood Cell (RBC) Count 3.95 mill/uL (4.70-6.10); White Blood Cell (WBC) Count 8.9 thou/uL (4.8-10.8)
[2020-07-31] MEDS ORDERED: Ondansetron ODT 4 MG TAB SL PRN (09:00)
[2020-07-31] MEDS ORDERED: Ondansetron PF 4 MG/2 ML Vial IVP PRN ×2 (09:00→12:14)
--- NOTE | 2020-07-31 09:13 | RAD ---
RADIOGRAPH CHEST 1 VIEW: Supine DATE: 07/31/2020 8:44 am HISTORY: 39-year-old male with dyspnea Comparison: 07/20/2020 FINDINGS: Supine positioning makes this study insensitive for the detection of pneumothorax. Again noted is the large right pleural effusion. There is dense total opacification of two third of the right lung. No cardiomegaly. No shift of midline structures. Multiple left brachial, axillary, subclavian, and in nominate vein stents. No cardiomegaly. No consolidation in left lung. Left lateral costophrenic angle is sharp. Allowing for positional differences, probably no significant interval change. IMPRESSION: 1) moderate to large right pleural effusion with underlying dense opacification of lower two thirds o f right lung, which presumably represents severe atelectasis, although pneumonia can also have this appearance. 2) no major interval change detected.
[2020-07-31 09:17] LABS: #Lymphocytes 1.2 thou/uL (1.20-3.40); #Monocytes 0.6 thou/uL (0.11-0.59); #Neutrophils 7.1 thou/uL (1.40-6.50); %Eosinophils 0.2 % (0.0-10.0); %Lymphocytes 13.7 % (21.0-51.0); %Monocytes 6.2 % (0.0-10.0); %Neutrophils 79.9 % (42.0-75.0)
[2020-07-31 09:18] LABS: Anisocytosis SLIGHT = 6-15 cells (100X) (0-5/hpf); Hypochromia SLIGHT = 6-15 cells (100X) (0-5/hpf); Large Platelets SLIGHT; MDiff Complete? YES; Platelet Morphology Comment Appears Adequate; Poikilocytosis SLIGHT = 6-15 cells (100X) (0-5/hpf); Schistocytes SLIGHT = 2-5 cells (100X) (0-1/hpf)
[2020-07-31 09:20] LABS: ALT (SGPT) 11 U/L (8-55); AST (SGOT) 20 U/L (5-34); Albumin 3.8 g/dL (3.5-5.0); Alkaline Phosphatase 161 U/L (40-110); Anion Gap 33 mmol/L (10-20); BUN (Urea Nitrogen) 100 mg/dL (8.9-20.6); Bilirubin, Total 0.4 mg/dL (0.2-1.2); CK (CPK) 113 U/L (30-200); Calc. Creatinine Clearance 0 mL/min (70-130); Calcium 7.3 mg/dL (7.8-10.44); Chloride 104 mmol/L (98-107); Estimated GFR-MDRD 7; Globulin 3.2 g/dL (2.4-3.5); Sodium 136 mmol/L (136-145)
[2020-07-31 09:25] LABS: Carbon Dioxide 8 mmol/L (22-29); Glucose 577 mg/dL (70-105); Potassium 9.1 mmol/L (3.5-5.1)
[2020-07-31] MEDS ORDERED: Dextrose 50% Abboject 50 ML SYRINGE ONE (09:58)
[2020-07-31] MEDS ORDERED: Sodium Bicarb 50 MEQ/50 ML Abboject 8.4% SYRINGE ONE ×2 (09:58→11:07)
[2020-07-31] MEDS ORDERED: Insulin Regular 300 UNITS/3 ML VIAL ONE (09:58)
[2020-07-31] MEDS ORDERED: Calcium Chloride 1 GM/10 ML Abboject SYRINGE ONE ×2 (09:58→11:07)
--- NOTE | 2020-07-31 10:52 | PDOC.FPRHP ---
- History of Present Illness Chief Complaint: SOB History of Present Illness: 39 y/o M with PMHx ESRD, T1DM, polysubstance abuse, medical non-compliance presents feeling SOB, generally weak and unwell after missing dialysis. States he missed dialysis 4 days ago, attended 2 days ago, and began feeling unwell this morning. Record review suggests he has not attended dialysis for the past 1 week. He usually does dialysis MWF. He also reports intermittent cough which he states is unchanged from when he has missed dialysis in the past. Endorses edema. He missed dialysis due to chronic diarrhea. He denies additional comp laints including fever, chills, congestion, rhinorrhea, abd pain, nausea, vomiting. He has been using SSI only with the help of his mother at home. He denies current use of long-acting insulin. ED Course: K 9.1; calcium chloride x2, sodium bicarb x2, D50 x1, SPS, 10u novolin, Dr. Gonzalez consulted for emergent dialysis - Allergies/Adverse Reactions Allergies Allergy/AdvReac Type Severity Reaction Status Date / Time Penicillins Allergy Verified 07/12/20 05:42 - Home Medications Medication Instructions Recorded Confirmed Type Acetaminophen [Tylenol Regular 650 mg PO Q4HR PRN 07/12/20 07/31/20 History Strength] Apixaban [Eliquis] 5 mg PO BID 07/12/20 07/31/20 History Aspirin [Ecotrin Low Strength] 81 mg PO DAILY 07/12/20 07/31/20 History Cinacalcet HCl [Sensipar] 60 mg PO DAILY 07/12/20 07/31/20 History Diphenoxylate HCl/Atropine 2 tab PO TID PRN 07/12/20 07/31/20 History [Lomotil] Sertraline HCl 25 mg PO DAILY 07/12/20 07/31/20 History Sevelamer Carbonate [Renvela] 2,400 mg PO TID 07/12/20 07/31/20 History levETIRAcetam [Keppra] 500 mg PO BID 07/12/20 07/31/20 History Amlodipine [Norvasc] 10 mg PO DAILY #14 tab 07/16/20 07/31/20 Rx Glucagon 1 mg IM PRN PRN #5 vial 07/16/20 07/31/20 Rx HumaLOG [HumaLOG Vial] 2 units SQ TID #5 vial 07/16/20 07/31/20 Rx hydrALAZINE [Apresoline] 25 mg PO DAILY #14 tab 07/16/20 07/31/20 Rx Insulin Glargine [Lantus] 20 units SC QAM 07/31/20 07/31/20 History - History PMHx: DMI, HTN, ESRD on HD, sz disorder, anxiety/depression, CVAx2 PSHx: Fistula R arm, R BKA FHx: non-contributory Social: tobacco-smokes 1/2 ppd, smokes marijuana 3-4x/wk - last used a week ago, uses PCP- last used 1 week ago - Review of Systems General: reports: weight/appetite/sleep changes, fatigue. denies: fever/chills Eyes: denies: vision changes ENT: denies: nasal congestion, rhinorrhea Respiratory: reports: cough, shortness of breath. denies: congestion Cardiovascular: reports: edema. denies: chest pain Gastrointestinal: reports: diarrhea. denies: nausea, vomiting, constipation, abdominal pain Genitourinary: denies: polyuria Skin: reports: lesions. denies: rashes Musculoskeletal: denies: pain Neurological: denies: syncope, weakness - Vital signs BP: 125/69, MAP: 87, Pulse: 141, Resp: 12, O2 sat: 98 on (Room Air), wt 7.16 kg T 97.9F - Physical Exam Constitutional: NAD, awake, alert and oriented HEENT: normocephalic and atraumatic, PERRLA, conjunctiva clear, grossly normal vision, grossly normal hearing, MMM, other (poor dentition) Neck: supple, no LAD Chest: no-tender to palpation Heart: RRR, pulses present, other (4+ pitting edema LLE) Lungs: CTAB, no respiratory distress Abdomen: soft, non-tender, bowel sounds present Musculoskeletal: other (R BKA stump) Neurological: no focal deficit, other (moves all 4 extremities, drug purchaser strength intact and equal bilaterally) Skin: other (dry ulceration approx 4 mm to tip of L thumb, CDI dressing over L arreaga) Heme/Lymphatic: no unusual bruising or bleeding Psychiatric: other (recent memory not intact, mood pleasant although seems to lack insight into chronic health conditions) FMR H&P: Results - Labs Result Diagrams: 10/09/20 08:41 07/31/20 12:31 Lab results: WBC 8.9 thou/uL (4.8-10.8) 07/31/20 08:41 Hgb 11.7 g/dL (14.0-18.0) L 07/31/20 08:41 Hct 37.0 % (42.0-52.0) L 07/31/20 08:41 MCV 93.7 fL (78.0-98.0) 07/31/20 08:41 Plt Count 132 thou/uL (130-400) 07/31/20 08:41 Neutrophils % 79.9 % (42.0-75.0) H 07/31/20 08:41 Sodium 136 mmol/L (136-145) 07/31/20 08:41 Potassium 9.1 mmol/L (3.5-5.1) H* 07/31/20 08:41 Chloride 104 mmol/L (98-107) 07/31/20 08:41 Carbon Dioxide 8 mmol/L (22-29) L* 07/31/20 08:41 BUN 100 mg/dL (8.9-20.6) H 07/31/20 08:41 Creatinine 10.14 mg/dL (0.7-1.3) H 07/31/20 08:41 Glucose 577 mg/dL (70-105) H* 07/31/20 08:41 Calcium 7.3 mg/dL (7.8-10.44) L 07/31/20 08:41 Total Bilirubin 0.4 mg/dL (0.2-1.2) 07/31/20 08:41 AST 20 U/L (5-34) 07/31/20 08:41 ALT 11 U/L (8-55) 07/31/20 08:41 Alkaline Phosphatase 161 U/L (40-110) H 07/31/20 08:41 Creatine Kinase 113 U/L (30-200) 07/31/20 08:41 B-Natriuretic Peptide 459.6 pg/mL (0-100) H 07/31/20 08:41 Serum Total Protein 7.0 g/dL (6.0-8.3) 07/31/20 08:41 Albumin 3.8 g/dL (3.5-5.0) 07/31/20 08:41 Lipase 32 U/L (8-78) 07/31/20 08:41 - EKG Interpretation EKG: ED EKG: peaked T waves, ST change in lead V2 only FMR H&P: A/P - Plan Hyperkalemia 2/2 ESRD Missed dialysis this week 2/2 chronic diarrhea. s/p calcium gluconate x2, sodium bicarb x2, D50 x1, SPS, 10u novolin in ED. Nephro Dr. Gonzalez consulted from ED for emergent dialysis. -K 9.1; Calcium, Insulin and bicarb given in ED -Nephro consulted, emergent dialysis -will recheck K after dialysis, monitor q4h DKA High anion gap metabolic acidosis BG 500s on admission, with mild elevation of b-hydroxybutyrate to 5.1 and anion gap 24. Likely -insulin drip, q1hr glucose checks, admit to IMCU -No extra fluids/K on DKA protocol given hypervolemic, hyperkalemic -NPO until gap closes, BMP q4h -recheck b-hydroxybutyrate in 4 hours Abnormal EKG Peaked T waves, flattened P waves, ST change in lead V2 only. - will repeat EKG Chronic diarrhea No acute changes per patient. - imodium prn when able to take PO - will r/o c diff; will not start precautions unless toxin positive given chronic nature of symptoms Seizure disorder -continue home meds -seizure precautions HTN -continue home meds Hx of CVA -DVT ppx- heparin -hold home eliquis Substance Abuse -hx of marijuana and PCP use one week ago -encourage cessation Tobacco Abuse -encourage cessation Code Status: Full DVT ppx: Heparin PCP: TAMP - L Buse Diet: NPO Dispo: Admit to IMCU, LOS >48hours FMR H&P: Upper Level - Plan Date/Time: 07/31/20 1052 ITerra, have evaluated this patient and agree with findings/plan as outlined by gallery intern resident. Pertinent changes/additions are listed here. 39 yo M with PMH of ESRD on HD, T1DM, HTN, recurrent DVT, and noncompliance with dialysis requiring multiple admissions presents to ED for missed dialysis. Last dialysis [address] Gonzalez. Reports last drug use 1 week ago. He was feeling short of breath, and weak today with mild cough and presented to ED. Has continued chronic diarrhea. Unsure how much insulin he has been using. Says family member administers sliding scale, does not use long acting. VS: BP116/55, P91, R16, O2 94%RA, Wt 77kg PE: Gen: NAD, resting in bed, will follow commands, answer questions appropriately HEENT: eyelids swollen b/l, MM dry Heart: RRR, no murmur, cap refill <2 secs Lungs: auscultated anteriorly, clear breath sounds, exam limited Ext: 1+ pitting edema LLE, R BKA, wound to L lower leg, bandaged In ED given 2 amp sodium bicarb, calcium chloride x2, 1 amp d50, 10u insulin R A/P: Anion gap metabolic acidosis 2/2 missed dialysis, uremia, and likely component of DKA as well -Insulin gtt ordered, will limit IVF in protocol considering volume overload -Initial gap 24, bicarb 8, B-hydroxy 5.6, glucose 577 -continue to trend with q4h BMP, pending repeat -Nephro consulted from ED, receiving emergent HD currently Severe Hyperkalemia -2/2 missed HD. 9.1 on admission. -Dr. Gonzalez consulted from ED -EKG with peaked T waves, prolonged QRS, rate 88, qtc 556 Hx pleural effusion -CXR today unchanged compared to prior. R hemithorax opacification, prominent pulm vasculature. Chronic Pleural Effusion: -CXR with R pelural effusion, no significant interval change -no respiratory distress at this time Anemia of Chronic Disease: -at baseline Chronic Diarrhea: -has been thoroughly worked up outpatient, has hx of C. Diff Ag positive but never toxin positive. -continue home Lomotil DVT PPx: home eliquis GI PPx: none Code Status: Full Attending: Mahogany PCP: RANULFO-[place] Dispo: admit to IMCU, HD in progress and on insulin gtt Addendum - Attending - Attending Attestation Date/Time: 07/31/20 5430 I personally evaluated the patient and discussed the management with Dr. Joaquin/Grace. I agree with the History, Examination, Assessment and Plan documented above with any addition or exceptions noted below. Patient here due to his noncompliance with medical therapy. He is hyperkalemic, needs emergent HD, and insulin drip for possible mild DKA. His other labs appear at chronic baseline. Further mgmt pending clinical course.
--- NOTE | 2020-07-31 11:16 | RAD ---
PORTABLE CHEST: Date: 07/31/2020 HISTORY: Central line placement. FINDINGS: Heart size is enlarged. Pleural and parenchymal changes are stable in the right lung. A left axillary and subclavian stent is noted. A right central line is present. Catheter tip is angled slightly cent rally and lies along the right margin of the tracheal outline. The patient is slightly rotated. This would overlie the region of the superior vena cava and right brachiocephalic vein. No pneumothorax is identified. IMPRESSION: Right-sided jugular line. The catheter tip angles slightly centrally with the tip adjacent to the rig ht side of the trachea. This overlies the region of the brachiocephalic vein and superior vena cava. I cannot totally exclude the possibility of an arterial position on the basis of this film. Clinical correlation suggested. POS: STACIA
--- NOTE | 2020-07-31 12:01 | CON ---
DATE OF CONSULTATION: REASON FOR CONSULTATION: Hyperkalemia. HISTORY OF PRESENT ILLNESS: This is a 39-year-old noncompliant gentleman who presented to the hospital with DKA as well as severe hyperkalemia and acidosis. I have been consulted. His potassium was 9.1. The patient has a history of noncompliance and misses dialysis periodically. PAST MEDICAL HISTORY: End-stage renal disease, hypertension, amputation, multiple fistula surgeries, multiple tunneled dialysis catheter, noncompliance, diabetes mellitus, seizure disorder, drug use. FAMILY HISTORY: Negative for ESRD. ALLERGIES: REVIEWED. HOME MEDICATIONS: List reviewed. HOSPITAL MEDICATIONS: List reviewed. PHYSICAL EXAMINATION: GENERAL: Patient is resting. VITAL SIGNS: Afebrile, pulse 75, breathing 16, blood pressure 130/70. HEENT: Head normocephalic and atraumatic. Eyes intact, no ulcers. Nose intact, no ulcers. Ears intact, no ulcers. NECK: Supple. No JVD. CHEST: Symmetrical and clear. CARDIOVASCULAR: Shows S1 and S2, no rub, no murmur. GASTROINTESTINAL: Abdomen is soft, bowel sounds positive. EXTREMITIES: Show no edema or ulcers. SKIN: Shows no rash or petechiae. MUSCULOSKELETAL: Shows no joint swelling or stiffness. GENITOURINARY: Shows no Clifton or CVA tenderness. NEUROLOGIC: Motor intact. Cranial nerves intact. LABORATORY DATA: Reviewed. IMPRESSION: 1. Stage 6 chronic kidney disease. Plan dialysis. 2. Hyperkalemia. Plan dialysis. 3. Metabolic acidosis. Plan dialysis. 4. Uremia. Plan dialysis. 5. Prognosis is poor. Radio Interference Trouble Shooter and adult protective services have been consulted on multiple occasions as outpatient. Job ID: [id number]
[2020-07-31 12:04] VITALS: BMI 23.8
[2020-07-31] MEDS ORDERED: Loperamide HCl 2 MG CAP PO PRN (12:14)
[2020-07-31] MEDS ORDERED: Ondansetron ODT 4 MG TAB PO PRN (12:14)
[2020-07-31] MEDS: HUMULIN R 100 UNITS in Sodium Chloride 0.9% 100 ML IVPB SCH ×2 (13:31→20:38)
[2020-07-31 13:40] LABS: Anion Gap 24 mmol/L (10-20); BUN (Urea Nitrogen) 72 mg/dL (8.9-20.6); Calc. Creatinine Clearance 14 mL/min (70-130); Calcium 8.2 mg/dL (7.8-10.44); Carbon Dioxide 17 mmol/L (22-29); Chloride 104 mmol/L (98-107); Estimated GFR-MDRD 9; Glucose 376 mg/dL (70-105); Potassium 5.9 mmol/L (3.5-5.1); Sodium 139 mmol/L (136-145)
[2020-07-31 13:41] LABS: Magnesium 2.7 mg/dL (1.6-2.6); Phosphorus 6.9 mg/dL (2.3-4.7)
[2020-07-31] MEDS ORDERED: Heparin 5,000 UNITS/ML VIAL SC SCH (15:00)
[2020-07-31] MEDS ORDERED: HumaLOG 300 UNITS/3 ML VIAL SC SCH (15:00)
[2020-07-31] MEDS ORDERED: Electrolyte Replacement Protoc 1 EACH EACH IVPB ONE (15:07)
[2020-07-31] MEDS ORDERED: Dextrose 5 %-0.45 % NaCl 1,000 ML IV PRN (15:07)
[2020-07-31] MEDS ORDERED: NS 0.9% w/ 20 MEQ KCL 1,000 ML IV PRN ×2 (15:07)
[2020-07-31] MEDS ORDERED: Sodium Chloride 0.9% 1,000 ML IV PRN ×4 (15:07)
[2020-07-31] MEDS ORDERED: D5 1/2 NS w/20 mEq KCL 1,000 ML IV PRN (15:07)
[2020-07-31] MEDS ORDERED: Dextrose 50% Abboject 50 ML SYRINGE SLOW IVP PRN (15:10)
[2020-07-31] MEDS ORDERED: Dextrose 5% in Water 1,000 ML IV PRN (15:10)
[2020-07-31] MEDS ORDERED: Dextrose 5% in Water 1,000 ML IV SCH (15:30)
[2020-07-31] MEDS ORDERED: Dextrose 10% in Water 1,000 ML IV SCH (16:30)
[2020-07-31] MEDS: Sevelamer Carbonate 800 MG TAB PO SCH (16:36)
[2020-07-31 16:52] LABS: Anion Gap 13 mmol/L (10-20); BUN (Urea Nitrogen) 33 mg/dL (8.9-20.6); Calc. Creatinine Clearance 25 mL/min (70-130); Carbon Dioxide 27 mmol/L (22-29); Chloride 101 mmol/L (98-107); Estimated GFR-MDRD 19; Glucose 120 mg/dL (70-105); Potassium 4.1 mmol/L (3.5-5.1); Sodium 137 mmol/L (136-145)
[2020-07-31] MEDS ORDERED: Insulin Glargine 20 UNITS in Pre-Filled Syringe 1 EACH SC ONE (17:08)
[2020-07-31] MEDS ORDERED: HumaLOG 300 UNITS/3 ML VIAL SC PRN (17:15)
[2020-07-31] MEDS ORDERED: Acetaminophen 325 MG TAB PO PRN (17:18)
[2020-07-31] MEDS ORDERED: Electrolyte Replacement Protocol FS PRN (17:30)
[2020-07-31] MEDS ORDERED: Insulin Glargine 20 UNITS in Pre-Filled Syringe 1 EACH SC SCH (17:30)
[2020-07-31 20:26] LABS: Anion Gap 20 mmol/L (10-20); BUN (Urea Nitrogen) 40 mg/dL (8.9-20.6); Calc. Creatinine Clearance 20 mL/min (70-130); Calcium 7.8 mg/dL (7.8-10.44); Carbon Dioxide 22 mmol/L (22-29); Chloride 103 mmol/L (98-107); Estimated GFR-MDRD 14; Glucose 175 mg/dL (70-105); Sodium 140 mmol/L (136-145)
[2020-07-31] MEDS ORDERED: Insulin Glargine 10 UNITS in Pre-Filled Syringe 1 EACH SC SCH ×2 (21:00→23:15)
[2020-07-31] MEDS: Apixaban 5 MG TAB PO SCH (21:10)
[2020-07-31] MEDS: levETIRAcetam 500 MG TAB PO SCH (21:10)
[2020-07-31] MEDS: Diphenoxylate HCl/Atropine Tablet PO PRN (21:14)
[2020-08-01 00:11] LABS: Anion Gap 16 mmol/L (10-20); BUN (Urea Nitrogen) 41 mg/dL (8.9-20.6); Calc. Creatinine Clearance 19 mL/min (70-130); Calcium 7.4 mg/dL (7.8-10.44); Carbon Dioxide 26 mmol/L (22-29); Chloride 102 mmol/L (98-107); Estimated GFR-MDRD 13; Glucose 241 mg/dL (70-105); Potassium 5.1 mmol/L (3.5-5.1); Sodium 139 mmol/L (136-145)
[2020-08-01 05:17] LABS: #Eosinphils 0.1 thou/uL (0.0-0.7); #Lymphocytes 1.3 thou/uL (1.20-3.40); #Monocytes 0.7 thou/uL (0.11-0.59); #Neutrophils 5.1 thou/uL (1.40-6.50); %Basophils 0.4 % (0.0-1.0); %Eosinophils 1.5 % (0.0-10.0); %Lymphocytes 17.4 % (21.0-51.0); %Monocytes 9.7 % (0.0-10.0); Anisocytosis SLIGHT = 6-15 cells (100X) (0-5/hpf); Hemoglobin 10.7 g/dL (14.0-18.0); MDiff Complete? YES; Mean Corpuscular HGB CONC 32.1 g/dL (32.0-36.0); Mean Corpuscular Hemoglobin 29.4 pg (27.0-31.0); Mean Corpuscular Volume 91.6 fL (78.0-98.0); Mean Platelet Volume 11.3 fL (7.4-10.4); Platelet Count 115 thou/uL (130-400); Platelet Morphology Comment Appears Decreased; RBC Distribution Width 17.3 % (11.5-14.5); Red Blood Cell (RBC) Count 3.64 mill/uL (4.70-6.10); White Blood Cell (WBC) Count 7.2 thou/uL (4.8-10.8)
[2020-08-01 05:32] LABS: Anion Gap 18 mmol/L (10-20); BUN (Urea Nitrogen) 44 mg/dL (8.9-20.6); Calc. Creatinine Clearance 19 mL/min (70-130); Calcium 7.3 mg/dL (7.8-10.44); Carbon Dioxide 25 mmol/L (22-29); Chloride 101 mmol/L (98-107); Estimated GFR-MDRD 13; Glucose 255 mg/dL (70-105); Potassium 5.1 mmol/L (3.5-5.1); Sodium 139 mmol/L (136-145)
--- NOTE | 2020-08-01 05:57 | PDOC.FM ---
- Subjective Subjective: Overnight was transitioned from insulin gtt to subcutaneous insulin. Reports he is feeling much better this morning than yesterday when he presented. He c/o continued diarrhea that is unchanged from his chronic diarrhea. He denies any chest pain, SOB, dizziness, shakiness, abdominal pain. - Objective Vital Signs & Weight: Vital Signs (12 hours) Temp Pulse Ox 08/01/20 04:19 97.3 F L 07/31/20 23:35 98.3 F 07/31/20 20:00 98 07/31/20 19:32 98.0 F Weight Admit Weight 77.564 kg Weight 77.564 kg Most Recent Monitor Data Heart Rate from ECG 86 NIBP 119/57 NIBP BP-Mean 77 Respiration from ECG 13 SpO2 98 I&O: 07/30/20 07/31/20 08/01/20 06:59 06:59 06:59 Intake Total 1020 Output Total 2000 Balance -980 Result Diagrams: 08/01/20 04:00 08/01/20 04:00 Phys Exam - Physical Examination Constitutional: NAD HEENT: moist MMs Respiratory: clear to auscultation bilateral Cardiovascular: RRR, no significant murmur Gastrointestinal: soft, non-tender, no distention, positive bowel sounds 2+ edema LLE, R BKA Neurological: moves all 4 limbs Psychiatric: A&O x 3 Skin: no rash Deviation from normal: CDI dressing L arreaga, dry ulceration tip L thumb Dx/Plan - Plan Plan: Hyperkalemia 2/2 ESRD Missed dialysis this week 2/2 chronic diarrhea. s/p calcium gluconate x2, sodium bicarb x2, D50 x1, SPS, 10u novolin in ED. Nephro Dr. Gonzalez consulted from ED for emergent dialysis, K improved to 5.1 after interventions including dialysis. - Nephro consulted, appreciate recs - Continue to monitor electrolytes DKA High anion gap metabolic acidosis BG 500s on admission, with mild elevation of b-hydroxybutyrate to 5.1 and anion gap 24. Was eventually transitioned from insulin gtt to subcutaneous insulin last night. - diabetic renal diet - q4hr glucose checks today - will hold AM lantus as patient received 20 units late last night during transition - cover with SSI today and will resume 20 u lantus q AM tomorrow morning Abnormal EKG Peaked T waves, flattened P waves, ST change in lead V2 only on initial EKG. Repeat EKG shows resolution of peaked T waves/flattened P waves and ST change in V2. - on cardiac monitoring in IMCU Chronic diarrhea No acute changes per patient. - c diff negative - continue home lomotil Seizure disorder -continue home meds -seizure precautions HTN -continue home meds Hx of CVA - aware Substance Abuse -hx of marijuana and PCP use one week ago -encourage cessation Tobacco Abuse -encourage cessation Code Status: Full DVT ppx: cesar PCP: RANULFO Hardwick Diet: CC renal Dispo: Admit to [facility], LOS >48hours Addendum - Attending - Attending Attestation Date/Time: 08/01/20 8849 I personally evaluated the patient and discussed the management with Dr. Joaquin. I agree with the History, Examination, Assessment and Plan documented above with any addition or exceptions noted below. Pt doing well this morning. He has been transitioned off the insulin drip and onto basal insulin. Dialysis per Dr. Gonzalez.
[2020-08-01] MEDS ORDERED: Insulin Glargine 20 UNITS in Pre-Filled Syringe 1 EACH SC SCH (09:00)
[2020-08-01] MEDS: levETIRAcetam 500 MG TAB PO SCH ×2 (09:53→21:18)
[2020-08-01] MEDS: Apixaban 5 MG TAB PO SCH ×2 (09:53→21:18)
[2020-08-01] MEDS: Cinacalcet HCl 30 MG TAB PO SCH (09:53)
[2020-08-01] MEDS: Sevelamer Carbonate 800 MG TAB PO SCH ×3 (09:53→17:22)
[2020-08-01] MEDS: Aspirin 81 mg Enteric Coated Tablet PO SCH (09:53)
[2020-08-01] MEDS: hydrALAZINE 25 MG TAB PO SCH (09:54)
[2020-08-01] MEDS: Amlodipine 10 MG TAB PO SCH (09:54)
--- NOTE | 2020-08-01 11:24 | PRG ---
DATE OF SERVICE: 08/01/2020 SUBJECTIVE: A 39-year-old gentleman being seen for end-stage renal disease. The patient denied nausea, vomiting or chest pain. OBJECTIVE: GENERAL: Patient is awake, alert. VITAL SIGNS: Afebrile, pulse 86, breathing 16, blood pressure 132/67. HEENT: Head normocephalic and atraumatic. Eyes intact, no ulcers. Nose intact, no ulcers. Ears intact, no ulcers. NECK: Supple. No JVD. CHEST: Symmetrical and clear. CARDIOVASCULAR: Shows S1 and S2, no rub, no murmur. GASTROINTESTINAL: Abdomen is soft, bowel sounds positive. EXTREMITIES: Show no edema or ulcers. SKIN: Shows no rash or petechiae. MUSCULOSKELETAL: Shows no joint swelling or stiffness. GENITOURINARY: Shows no Clifton or CVA tenderness. NEUROLOGIC: Motor intact. Cranial nerves intact. LABORATORY DATA: Reviewed. ASSESSMENT: 1. Stage chronic kidney disease, plan dialysis scheduled. 2. Hypertension, stable. 3. Anemia, stable. Medication based on GFR appropriate. Job ID: [id number]
[2020-08-01 15:24] LABS: SARS-CoV-2 MS2 Positive; SARS-CoV-2 N Gene Negative; SARS-CoV-2 S Gene Negative; SARS-CoV-2 by NAA Not Detected (NotDetected); SARS-CoV-2 orf1ab Negative
[2020-08-02 03:08] LABS: Anion Gap 18 mmol/L (10-20); BUN (Urea Nitrogen) 53 mg/dL (8.9-20.6); Calc. Creatinine Clearance 15 mL/min (70-130); Calcium 6.8 mg/dL (7.8-10.44); Carbon Dioxide 25 mmol/L (22-29); Chloride 102 mmol/L (98-107); Estimated GFR-MDRD 11; Glucose 84 mg/dL (70-105); Potassium 5.3 mmol/L (3.5-5.1); Sodium 140 mmol/L (136-145)
[2020-08-02] MEDS: Diphenoxylate HCl/Atropine Tablet PO PRN (03:13)
--- NOTE | 2020-08-02 05:37 | PDOC.FM ---
- Subjective Subjective: No acute overnight events. Patient has no new complaints this morning. States he is tired but otherwise feeling fine. No SOB, chest pains, increased swelling. - Objective Vital Signs & Weight: Vital Signs (12 hours) Temp Resp 08/02/20 05:00 12 08/02/20 04:49 98.4 F 08/02/20 02:00 14 08/01/20 23:46 97.7 F 08/01/20 19:47 98.2 F Weight Admit Weight 77.564 kg Weight 77.564 kg Most Recent Monitor Data Heart Rate from ECG 84 NIBP 133/63 NIBP BP-Mean 86 Respiration from ECG 3 SpO2 97 I&O: 07/31/20 08/01/20 08/02/20 06:59 06:59 06:59 Intake Total 1020 980 Output Total 2000 0 Balance -980 980 Result Diagrams: 08/01/20 04:00 08/02/20 02:15 Phys Exam - Physical Examination Constitutional: NAD HEENT: moist MMs Respiratory: clear to auscultation bilateral Cardiovascular: RRR, no significant murmur Gastrointestinal: soft, non-tender, positive bowel sounds LLE pulse difficult to palpate, warm ext, R BKA Neurological: non-focal, moves all 4 limbs Psychiatric: A&O x 3 Deviation from normal: pleasant mood Deviation from normal: CDI dressing on L arreaga wound Dx/Plan - Plan Plan: Hyperkalemia 2/2 ESRD Missed dialysis this week 2/2 chronic diarrhea. s/p calcium gluconate x2, sodium bicarb x2, D50 x1, SPS, 10u novolin in ED. Nephro Dr. Gonzalez consulted from ED for emergent dialysis, K improved to 5.1 after interventions including dialysis. - Nephro consulted, appreciate recs - Continue to monitor electrolytes Type 1 DM DKA, resolved High anion gap metabolic acidosis, resolved BG 500s on admission, with mild elevation of b-hydroxybutyrate to 5.1 and anion gap 24. Was eventually transitioned from insulin gtt to subcutaneous insulin last night. - diabetic renal diet - qACHS checks - lantus 20 u qAM - mild SSI Abnormal EKG Peaked T waves, flattened P waves, ST change in lead V2 only on initial EKG. Repeat EKG shows resolution of peaked T waves/flattened P waves and ST change in V2. - cardiac monitoring Chronic diarrhea No acute changes per patient. - c diff negative - continue home lomotil Seizure disorder -continue home meds -seizure precautions HTN -continue home meds Hx of CVA - aware Substance Abuse -hx of marijuana and PCP use one week ago -encourage cessation Tobacco Abuse -encourage cessation Code Status: Full DVT ppx: cesar PCP: RANULFO Hardwick Diet: CC renal Addendum - Attending - Attending Attestation Date/Time: 08/02/20 5646 I personally evaluated the patient and discussed the management with Dr. Joaquin. I agree with the History, Examination, Assessment and Plan documented above with any addition or exceptions noted below. Pt's blood sugars are improved. Will continue dialysis with Dr. Gonzalez. tamy monsivais on compliance.
[2020-08-02] MEDS: hydrALAZINE 25 MG TAB PO SCH (08:54)
[2020-08-02] MEDS: Amlodipine 10 MG TAB PO SCH (08:54)
[2020-08-02] MEDS: Cinacalcet HCl 30 MG TAB PO SCH (08:55)
[2020-08-02] MEDS: Aspirin 81 mg Enteric Coated Tablet PO SCH (08:55)
[2020-08-02] MEDS: Sevelamer Carbonate 800 MG TAB PO SCH ×3 (08:55→17:13)
[2020-08-02] MEDS: levETIRAcetam 500 MG TAB PO SCH ×2 (08:55→20:53)
[2020-08-02] MEDS: Apixaban 5 MG TAB PO SCH ×2 (08:55→20:53)
--- NOTE | 2020-08-02 08:58 | EKG ---
Test Reason : Blood Pressure : / mmHG Vent. Rate : 094 BPM Atrial Rate : 094 BPM P-R Int : 130 ms QRS Dur : 086 ms QT Int : 360 ms P-R-T Axes : 069 080 047 degrees QTc Int : 450 ms Normal sinus rhythm Low voltage QRS Poor anterior R wave progression When compared with ECG of 12-JUL-2020 04:49, Previous ECG has undetermined rhythm, needs review (RBBB and left anterior fascicular block) is no longer Present Criteria for Septal infarct are no longer Present Confirmed by DR. Siria DOCKERY ([id number]) on 08/02/2020 8:58:02 AM Referred By: REHG Confirmed By:DR. Siria DOCKERY
--- NOTE | 2020-08-02 12:44 | PRG ---
DATE OF SERVICE: 08/02/2020 SUBJECTIVE: A 39-year-old male, being seen for end-stage renal disease. The patient denies any nausea, vomiting, or chest pain. OBJECTIVE: General: The patient is awake and alert. Vital Signs: Afebrile, pulse 85, breathing at 16, blood pressure 131/66. HEENT: Head normocephalic and atraumatic. Eyes intact, no ulcers. Nose intact, no ulcers. Ears intact, no ulcers. Neck: Supple. No JVD. Chest: Symmetrical and clear. Cardiovascular: Shows S1 and S2, no rub, no murmur. Gastrointestinal: Abdomen is soft, bowel sounds positive. Extremities: Show no edema or ulcers. Skin: Shows no rash or petechiae. Musculoskeletal: Shows no joint swelling or stiffness. Genitourinary: Shows no Clifton or CVA tenderness. Neurologic: Motor intact. Cranial nerves intact. LABORATORY DATA: Reviewed. ASSESSMENT AND PLAN: 1. Stage 6 chronic kidney disease, plan dialysis. 2. Hyperkalemia, plan dialysis. 3. Anemia, stable. 4. Uremia, plan dialysis. 5. Prognosis is poor. Job ID: [id number]
[2020-08-02 22:22] VITALS: BP 130/70; TEMP 97.7
--- NOTE | 2020-08-03 14:17 | DIS ---
DATE OF ADMISSION: 07/31/2020 DATE OF DISCHARGE: 08/02/2020 ADMITTING ATTENDING: Efraín Mckinley MD DISCHARGE ATTENDING: Juliet Stroud MD CONSULTS: Nephrology, Dr. Gonzalez. PROCEDURES: Emergent dialysis. PRIMARY DIAGNOSIS: Hyperkalemia. SECONDARY DIAGNOSES: 1. Diabetic ketoacidosis. 2. End-stage renal disease. 3. Type 1 diabetes. 4. Chronic diarrhea. 5. Seizure disorder. 6. Hypertension. 7. History of stroke. 8. Substance abuse. DISCHARGE MEDICATIONS: 1. Eliquis 5 mg p.o. b.i.d. 2. Lomotil 2.5/0.025 mg two tabs p.o. t.i.d. p.r.n. 3. Keppra 500 mg p.o. b.i.d. 4. Tylenol 650 mg p.o. q.4 hours p.r.n. 5. Sertraline 25 mg p.o. daily. 6. Renvela 2400 mg p.o. t.i.d. 7. Cinacalcet 60 mg p.o. daily. 8. Aspirin 81 mg p.o. daily. 9. Hydralazine 25 mg p.o. daily. 10. Glucagon 1 mg IM p.r.n. 11. Amlodipine 10 mg p.o. daily. 12. Humalog 2 units subcu t.i.d. 13. Lantus 20 units subcu q.a.m. Discontinued medications: None. HOSPITAL COURSE: This is a 39-year-old male with a past history of end-stage renal disease, type 1 diabetes, polysubstance abuse, and noncompliance, who was brought to the hospital after being found short of breath and generally weak after missing dialysis. Record review suggests he missed 2 sessions of dialysis before this admission. Upon evaluation in the ER, he was found to be hypokalemic with a potassium of 9.1. Nephrology was consulted for emergent dialysis, which was performed. He was hyperglycemic and found to also be in diabetic ketoacidosis. He was admitted to the [facility] and started on an insulin drip to treat his DKA. Overnight, on his first night of admission, his potassium had been corrected by dialysis and his DKA had resolved with the insulin drip. He remained hospitalized for another session of dialysis that was not emergent, and after being found stable, he was discharged to home with instructions to follow up for his routine dialysis on Mondays, Wednesdays, and Fridays. DISPOSITION: Stable. DISCHARGE INSTRUCTIONS: 1. Location: Home. 2. Diet: Diabetic and renal diet. 3. Activity: As tolerated. 4. Followup: The patient is to see his primary care, Dr. Mela Hardwick at [facility] and within 1 week. The patient should also follow up with Nephrology as scheduled and attend his dialysis as previously scheduled on Mondays, Wednesdays, and Fridays. Job ID: [id number]
== END 2020-08-02 22:10 | disposition home or self-care (01) | DRG 637 ==
LOC: ERS 08:11 → ERHOLD 10:21 → MERGE 10:21 → IMCU/EMU 11:25 → 2NO 08-02 06:43
PROVIDERS: ADMIT Student in an Organized Health Care Education/Training Program; ATTEND Student in an Organized Health Care Education/Training Program
PROC: 5A1D70Z Performance of Urinary Filtration, Intermittent, Less than 6 Hours Per Day (ICD-10-PCS; principal; 2020-07-31)
DX: E10.10 Type 1 diabetes mellitus with ketoacidosis without coma (principal); N18.6 End stage renal disease; I12.0 Hypertensive chronic kidney disease with stage 5 chronic kidney disease or end stage renal disease; J90 Pleural effusion, not elsewhere classified; E87.5 Hyperkalemia; Z20.828 Contact with and (suspected) exposure to other viral communicable diseases; E10.22 Type 1 diabetes mellitus with diabetic chronic kidney disease; F41.9 Anxiety disorder, unspecified; F32.9 Major depressive disorder, single episode, unspecified; F17.210 Nicotine dependence, cigarettes, uncomplicated; G40.909 Epilepsy, unspecified, not intractable, without status epilepticus; R94.31 Abnormal electrocardiogram [ECG] [EKG]; D63.1 Anemia in chronic kidney disease; K52.9 Noninfective gastroenteritis and colitis, unspecified; F12.11 Cannabis abuse, in remission; Z88.0 Allergy status to penicillin; Z79.82 Long term (current) use of aspirin; Z99.2 Dependence on renal dialysis; Z86.73 Personal history of transient ischemic attack (TIA), and cerebral infarction without residual deficits; Z89.511 Acquired absence of right leg below knee; Z91.15 Patient's noncompliance with renal dialysis; Z71.51 Drug abuse counseling and surveillance of drug abuser; Z71.6 Tobacco abuse counseling; Z86.718 Personal history of other venous thrombosis and embolism
CPT/HCPCS: 36415; 36416; 36556; 71045; 80048; 80053; 82010; 82550; 83690; 83735; 83880; 84100; 84484; 85025; 87324; 87449; 87635; 90935; 93005; 93010; 96374; 96375; 96376; G0257; J1644; J1815; J3490; U0003

== ENCOUNTER 2020-08-20 22:13 | Inpatient (IN) | payer MEDICARE, MEDICAID ==
[2020-08-20 23:52] LABS: #Eosinphils 0.1 thou/uL (0.0-0.7); #Lymphocytes 1.2 thou/uL (1.20-3.40); #Monocytes 1.1 thou/uL (0.11-0.59); #Neutrophils 7.9 thou/uL (1.40-6.50); %Basophils 0.4 % (0.0-1.0); %Eosinophils 1.2 % (0.0-10.0); %Monocytes 10.2 % (0.0-10.0); %Neutrophils 76.2 % (42.0-75.0); Hemoglobin 12.7 g/dL (14.0-18.0); Mean Corpuscular HGB CONC 32.1 g/dL (32.0-36.0); Mean Corpuscular Hemoglobin 29.4 pg (27.0-31.0); Mean Corpuscular Volume 91.6 fL (78.0-98.0); Platelet Count 151 thou/uL (130-400); Red Blood Cell (RBC) Count 4.32 mill/uL (4.70-6.10); White Blood Cell (WBC) Count 10.3 thou/uL (4.8-10.8)
[2020-08-21 00:13] LABS: ALT (SGPT) 12 U/L (8-55); AST (SGOT) 13 U/L (5-34); Albumin 3.4 g/dL (3.5-5.0); Alkaline Phosphatase 112 U/L (40-110); Anion Gap 23 mmol/L (10-20); BUN (Urea Nitrogen) 65 mg/dL (8.9-20.6); Bilirubin, Total 0.5 mg/dL (0.2-1.2); CK (CPK) 77 U/L (30-200); Calc. Creatinine Clearance 0 mL/min (70-130); Calcium 7.2 mg/dL (7.8-10.44); Carbon Dioxide 17 mmol/L (22-29); Chloride 102 mmol/L (98-107); Estimated GFR-MDRD 8; Globulin 3.6 g/dL (2.4-3.5); Glucose 126 mg/dL (70-105); Lipase 22 U/L (8-78); Sodium 136 mmol/L (136-145)
[2020-08-21] MEDS ORDERED: Dextrose 50% Abboject 50 ML SYRINGE ONE ×2 (00:47→05:32)
[2020-08-21] MEDS ORDERED: Sodium Bicarb 50 MEQ/50 ML VIAL ONE (00:47)
[2020-08-21] MEDS ORDERED: INSULIN REGULAR IN 0.9 % NACL 100 UNIT/100 ML BAG ONE (00:47)
[2020-08-21] MEDS ORDERED: Insulin Regular 300 UNITS/3 ML VIAL ONE (00:50)
[2020-08-21] MEDS ORDERED: Ondansetron ODT 4 MG TAB PO PRN (01:40)
[2020-08-21] MEDS ORDERED: Acetaminophen 325 MG TAB PO PRN (01:40)
[2020-08-21] MEDS ORDERED: Ondansetron PF 4 MG/2 ML Vial IVP PRN (01:40)
--- NOTE | 2020-08-21 01:40 | PDOC.FPRHP ---
- History of Present Illness Chief Complaint: SOB History of Present Illness: Patient is a 39 year old male with a history of ESRD (M/W/F dialysis), DM1, seziures, HTN, and substance abuse who presents to the ED with complains of SOB since last pm. The patient says he missed his monday dialysis session due to chronic diarrhea. He felt increased generalized weakness this am and was unable to transition from the chair to his wheelchair. He laid on the ground until his mother came home and called EMS. He reports nausea this am now resolved but denies headache, chest pain, palpitations, vomiting, abdominal pain, dysuria, dizziness, and lightheadedness. ED Course: In the ED, patient noted to have K 6 with anion gap of 18. Given 1 amp bicarb, novolin 10 units and 1 amp D50. - Allergies/Adverse Reactions Allergies Allergy/AdvReac Type Severity Reaction Status Date / Time Penicillins Allergy Unknown Verified 08/21/20 02:56 - Home Medications Medication Instructions Recorded Confirmed Type Sevelamer Carbonate [Renvela] 2,400 mg PO TID-WM 09/08/15 06/26/20 History Cinacalcet HCl [Sensipar] 60 mg PO DAILY 09/02/16 06/26/20 History Sertraline HCl 25 mg PO DAILY 03/03/17 06/26/20 History Acetaminophen [Tylenol Regular 650 mg PO Q4H PRN tab 09/27/18 06/26/20 Rx Strength] HumaLOG [HumaLOG Vial] 3 units SC TID-WM vial 11/26/19 06/26/20 Rx levETIRAcetam [Keppra] 500 mg PO BID #0 tab 11/26/19 06/26/20 Rx Diphenoxylate HCl/Atropine 2 tab PO TID PRN #60 tab 02/19/20 06/26/20 Rx [Lomotil] Aspirin [Ecotrin Low Strength] 81 mg PO DAILY 02/27/20 06/26/20 History Apixaban [Eliquis] 5 mg PO BID #60 tab 05/26/20 06/26/20 Rx Insulin Glargine [Lantus Vial] 20 units SC QAM vial 05/26/20 06/26/20 Rx Acetaminophen [Tylenol Regular 650 mg PO Q4HR PRN 07/12/20 07/31/20 History Strength] Apixaban [Eliquis] 5 mg PO BID 07/12/20 07/31/20 History Aspirin [Ecotrin Low Strength] 81 mg PO DAILY 07/12/20 07/31/20 History Cinacalcet HCl [Sensipar] 60 mg PO DAILY 07/12/20 07/31/20 History Diphenoxylate HCl/Atropine 2 tab PO TID PRN 07/12/20 07/31/20 History [Lomotil] Sertraline HCl 25 mg PO DAILY 07/12/20 07/31/20 History Sevelamer Carbonate [Renvela] 2,400 mg PO TID 07/12/20 07/31/20 History levETIRAcetam [Keppra] 500 mg PO BID 07/12/20 07/31/20 History Amlodipine [Norvasc] 10 mg PO DAILY #14 tab 07/16/20 07/31/20 Rx Glucagon 1 mg IM PRN PRN #5 vial 07/16/20 07/31/20 Rx HumaLOG [HumaLOG Vial] 2 units SQ TID #5 vial 07/16/20 07/31/20 Rx hydrALAZINE [Apresoline] 25 mg PO DAILY #14 tab 07/16/20 07/31/20 Rx Insulin Glargine [Lantus] 20 units SC QAM 07/31/20 07/31/20 History - History PMHx: DMI, HTN, ESRD on HD, sz disorder, anxiety/depression, CVAx2 PSHx: Fistula R arm, L BKA FHx: non-contributory Social: tobacco-smokes 1/2 ppd, smokes marijuana 3-4x/wk - last used a week ago, hx PCP use - Review of Systems General: denies: fever/chills, fatigue Eyes: denies: vision changes ENT: denies: nasal congestion Respiratory: reports: shortness of breath. denies: cough, congestion Cardiovascular: denies: chest pain, palpitation, edema Gastrointestinal: reports: diarrhea (chronic). denies: nausea, abdominal pain Genitourinary: denies: dysuria, polyuria Skin: reports: other (open sores, right leg) Musculoskeletal: denies: pain, tenderness Neurological: reports: weakness (generalized). denies: numbness, seizure Psychological: denies: anxiety, depression - Vital signs BP: [163/89] HR: [83] RR: [16] Tmax: [97.9F] Pox: [93]% on [RA] Wt: [76.8kg] - Physical Exam Constitutional: NAD, awake, alert and oriented HEENT: normocephalic and atraumatic, conjunctiva clear, MMM Neck: FROM, trachea midline Chest: no-tender to palpation Heart: RRR, normal S1/S2, no edema -Heart: Unable to palpate dorsalis pedis pulse of right foot Lungs: CTAB, no respiratory distress, good air movement Abdomen: soft, non-tender, bowel sounds present -Musculoskeletal: L BKA Neurological: no focal deficit -Skin: 3 open sores of R lower leg with erythema and serous fluid present. Nontender. Dry skin with flaking present on R foot. Sock was crusted with dried serous fluid to foot. Psychiatric: normal mood and affect FMR H&P: Results - Labs Result Diagrams: 08/20/20 23:35 08/21/20 01:39 Lab results: WBC 10.3 thou/uL (4.8-10.8) 08/20/20 23:35 Hgb 12.7 g/dL (14.0-18.0) L 08/20/20 23:35 Hct 39.6 % (42.0-52.0) L 08/20/20 23:35 MCV 91.6 fL (78.0-98.0) 08/20/20 23:35 Plt Count 151 thou/uL (130-400) 08/20/20 23:35 Neutrophils % 76.2 % (42.0-75.0) H 08/20/20 23:35 Sodium 136 mmol/L (136-145) 08/20/20 23:35 Potassium 6.0 mmol/L (3.5-5.1) H 08/20/20 23:35 Chloride 102 mmol/L (98-107) 08/20/20 23:35 Carbon Dioxide 17 mmol/L (22-29) L 08/20/20 23:35 BUN 65 mg/dL (8.9-20.6) H 08/20/20 23:35 Creatinine 9.25 mg/dL (0.7-1.3) H 08/20/20 23:35 Glucose 126 mg/dL (70-105) H 08/20/20 23:35 Calcium 7.2 mg/dL (7.8-10.44) L 08/20/20 23:35 Total Bilirubin 0.5 mg/dL (0.2-1.2) 08/20/20 23:35 AST 13 U/L (5-34) 08/20/20 23:35 ALT 12 U/L (8-55) 08/20/20 23:35 Alkaline Phosphatase 112 U/L (40-110) H 08/20/20 23:35 Creatine Kinase 77 U/L (30-200) 08/20/20 23:35 B-Natriuretic Peptide 326.7 pg/mL (0-100) H 08/20/20 23:35 Serum Total Protein 7.0 g/dL (6.0-8.3) 08/20/20 23:35 Albumin 3.4 g/dL (3.5-5.0) L 08/20/20 23:35 Lipase 22 U/L (8-78) 08/20/20 23:35 - EKG Interpretation EKG: NSR, no ST segment changes FMR H&P: A/P - Plan Anion gap metabolic acidosis 2/2 missed dialysis in setting of ESRD Hyperkalemia 2/2 missed dialysis Missed monday session of dialysis. K 6 with anion gap 18.5. Cr 9.25. Dr. Hurd (nephrology) was consulted in ED and recommended dialysis in am. s/p sodium bicarb x1, D50 x 1, 10u novolin. CXR showed fluid overload, official read pending -F/u nephro recs in am -Repeat BMP in 4 hours to monitor K -BMP daily DM2 BG 126 in ED. Anion gap of 18 present. S/p 10u novolin in ED -Diabetic hyperglycemia protocol in place -Order b-hydroxybutyrate level Chronic diarrhea No acute changes per patient. - Imodium prn Seizure disorder -continue home meds -seizure precautions HTN -continue home meds Hx of CVA -Aware Hx DVTs -Continue home eliquis Substance Abuse -hx of marijuana and PCP use -encourage cessation Tobacco Abuse -encourage cessation Code Status: Full DVT ppx: Eliquis PCP: RANULFO Hardwick Dispo: Admit to medicine inpatient, expected LOS > 48 hours FMR H&P: Upper Level - Plan Date/Time: 08/21/20 0140 ITerra, have evaluated this patient and agree with findings/plan as outlined by architecture intern resident. Pertinent changes/additions are listed here. 39 yo M with PMH of ESRD on HD, T1DM, HTN, recurrent DVT, and noncompliance with dialysis requiring multiple admissions presents to ED for SOB due to missed d ialysis. Last dialysis was Monday. He missed Monday due to diarrhea. Reports last used marijuana a few weeks ago. He reports falling to floor from his wheelchair and the SOB he felt prompted him to come to ED. Reports compliance with insulin and actually had hypoglycemia in the 20s last night. Also has 1 week history of LLE wounds that began as blisters but popped and mother has been applying neosporin and homemade bandage. Denies trauma or any known cause. Chart review shows this was present on admission 3-4 weeks ago as well. PE: Gen: NAD, resting sitting up in bed HEENT: eyelids swollen b/l Heart: RRR, no murmur, cap refill <2 secs Lungs: auscultated anteriorly, clear breath sounds, exam limited Ext: R BKA, wound to L lower leg, bandaged Anion gap metabolic acidosis 2/2 missed dialysis, uremia -Nephro consulted from ED, plan for dialysis in am -Albumin correceted anion gap of 18.5. Considered DKA but less suspicious. He was given amp of bicarb in ED. Will repeat BMP now to see if improves. Also ordered B-hydroxy. Consider ABG. Hyperkalemia -2/2 missed HD. 6.0 on admission. -EKG without changes Hx pleural effusion -CXR similar if not improved compared to prior admission, R hemithorax opacification, prominent pulm vasculature. - No respiratory distress at this time Anemia of Chronic Disease: -at baseline Chronic Diarrhea: -has been thoroughly worked up outpatient, has hx of C. Diff Ag positive but never toxin positive. Last admission screen toxin and Ag negative -continue home Lomotil DVT PPx: home eliquis GI PPx: none Code Status: Full Attending: Mahogany PCP: Cindy Dispo: admit to telemetry inpatient. Pending BMP recheck. Plan for HD in am. Addendum - Attending - Attending Attestation Date/Time: 08/21/20808 I personally evaluated the patient and discussed the management with Dr. Andrea anderson/Grace I agree with the History, Examination, Assessment and Plan documented above with any addition or exceptions noted below. Obtain HD, Wound care. Continue chronic meds for chronic conditions.
[2020-08-21] MEDS ORDERED: Diphenoxylate HCl/Atropine Tablet PO PRN (02:20)
[2020-08-21 02:24] LABS: Anion Gap 22 mmol/L (10-20); BUN (Urea Nitrogen) 67 mg/dL (8.9-20.6); Calc. Creatinine Clearance 0 mL/min (70-130); Carbon Dioxide 19 mmol/L (22-29); Chloride 102 mmol/L (98-107); Estimated GFR-MDRD 8; Glucose 177 mg/dL (70-105); Potassium 5.5 mmol/L (3.5-5.1); Sodium 137 mmol/L (136-145)
[2020-08-21 02:47] VITALS: BMI 23.6
[2020-08-21] MEDS ORDERED: Sodium Bicarb 50 MEQ/50 ML Abboject 8.4% SYRINGE IVP SCH (03:00)
[2020-08-21] MEDS ORDERED: Dextrose 50% Abboject 50 ML SYRINGE SLOW IVP PRN (05:32)
[2020-08-21] MEDS ORDERED: Dextrose 5% in Water 1,000 ML IV PRN (05:32)
[2020-08-21] MEDS ORDERED: Dextrose 50% Abboject 50 ML SYRINGE SLOW IVP SCH (05:45)
--- NOTE | 2020-08-21 07:30 | RAD ---
PORTABLE CHEST: History: Dyspnea Comparison: 07-31-2020 FINDINGS: Large right effusion, some of which may be loculated. There may be associated right consolidation. Cardiomegaly. Mild vascular engorgement. The left lung appears clear and unchanged. There is was a large right effusion noted on the prior study which was a supine exam. When comparison is made to an upright exam of 07-12-2020, the right effusion appears to have increased since that graham e. IMPRESSION: Right pleural effusion with some evidence of some loculation and right basilar atelectasis and/or con solidation. POS: AGW
[2020-08-21 12:02] LABS: SARS-CoV-2 MS2 Positive; SARS-CoV-2 N Gene Negative; SARS-CoV-2 S Gene Negative; SARS-CoV-2 by NAA Not Detected (NotDetected); SARS-CoV-2 orf1ab Negative
[2020-08-21] MEDS: hydrALAZINE 25 MG TAB PO SCH (12:56)
[2020-08-21] MEDS: HumaLOG 300 UNITS/3 ML VIAL SC SCH ×3 (12:56→18:43)
[2020-08-21] MEDS: Sevelamer Carbonate 800 MG TAB PO SCH ×3 (12:58→18:07)
[2020-08-21] MEDS: Cinacalcet HCl 30 MG TAB PO SCH (12:58)
[2020-08-21] MEDS: Amlodipine 10 MG TAB PO SCH (12:59)
[2020-08-21] MEDS: Aspirin 81 mg Enteric Coated Tablet PO SCH (12:59)
[2020-08-21] MEDS: levETIRAcetam 500 MG TAB PO SCH ×2 (12:59→21:04)
[2020-08-21] MEDS: Insulin Glargine 20 UNITS in Pre-Filled Syringe 1 EACH SC SCH (13:00)
[2020-08-21] MEDS: Apixaban 5 MG TAB PO SCH ×2 (13:00→21:04)
[2020-08-21 13:03] LABS: Hemoglobin 12.9 g/dL (14.0-18.0); Platelet Count 141 thou/uL (130-400)
[2020-08-21 15:40] LABS: Anion Gap 19 mmol/L (10-20); BUN (Urea Nitrogen) 27 mg/dL (8.9-20.6); Calc. Creatinine Clearance 21 mL/min (70-130); Calcium 7.9 mg/dL (7.8-10.44); Carbon Dioxide 24 mmol/L (22-29); Chloride 100 mmol/L (98-107); Estimated GFR-MDRD 15; Glucose 143 mg/dL (70-105); Potassium 4.6 mmol/L (3.5-5.1); Sodium 138 mmol/L (136-145)
[2020-08-21] MEDS ORDERED: HumaLOG 300 UNITS/3 ML VIAL SC PRN ×2 (21:34)
[2020-08-22 05:12] LABS: Anion Gap 18 mmol/L (10-20); BUN (Urea Nitrogen) 38 mg/dL (8.9-20.6); Calc. Creatinine Clearance 16 mL/min (70-130); Carbon Dioxide 27 mmol/L (22-29); Chloride 101 mmol/L (98-107); Estimated GFR-MDRD 12; Glucose 134 mg/dL (70-105); Potassium 4.6 mmol/L (3.5-5.1); Sodium 141 mmol/L (136-145)
--- NOTE | 2020-08-22 05:54 | PDOC.FM ---
- Subjective Subjective: Pt awake and alert this morning. States he feels back at his baseline and would like to go home. No acute events overnight. No complaints this morning. - Objective Vital Signs & Weight: Vital Signs (12 hours) Temp Pulse Resp BP Pulse Ox 08/22/20 04:40 95 08/22/20 03:32 98.8 F 87 14 129/70 95 08/21/20 20:00 98.2 F 94 16 134/69 97 Weight Admit Weight 76.839 kg Weight 69 kg I&O: 08/20/20 08/21/20 08/22/20 06:59 06:59 06:59 Intake Total 100 Balance 100 Result Diagrams: 08/21/20 12:53 08/22/20 04:00 Phys Exam - Physical Examination Constitutional: NAD HEENT: moist MMs, sclera anicteric Neck: supple, full ROM Respiratory: no wheezing, clear to auscultation bilateral Cardiovascular: RRR, no significant murmur Gastrointestinal: soft, non-tender, no distention Musculoskeletal: no edema, pulses present Neurological: non-focal, moves all 4 limbs Psychiatric: normal affect, A&O x 3 Skin: no rash, cap refill <2 seconds Deviation from normal: LLE wrapped Dx/Plan - Plan Plan: Anion gap metabolic acidosis 2/2 missed dialysis in setting of ESRD Hyperkalemia 2/2 missed dialysis -POA, now resolved s/p dialysis on 08/21 -consult nephrology: appreciate recs -BMP daily -CM consulted for outpatient dialysis -Wound care consulted for LLE wounds. Pending recs on outpatient wound care -stable, likely discharge soon, pending nephrology, CM, and wound care recs DM2 -hypoglycemia protocol, accuchecks ACHS -continue home meds Chronic diarrhea - Imodium prn Seizure disorder -continue home meds -seizure precautions HTN -continue home meds Hx of CVA -Aware Hx DVTs -Continue home eliquis Substance Abuse -hx of marijuana and PCP use -encourage cessation Tobacco Abuse -encourage cessation Code Status: Full DVT ppx: Eliquis PCP: RANULFO Hardwick Diet: renal high protein Dispo: Admit to tele inpatient, pending nephro, CM and wound care recs. expected LOS > 48 hours Addendum - Attending - Attending Attestation Date/Time: 08/22/20 2945 I personally evaluated the patient and discussed the management with Dr. Garzon. I agree with the History, Examination, Assessment and Plan documented above with any addition or exceptions noted below. Patient feeling well. No major issues overnight. Awaiting Nephro recs regarding repeat HD or if he may be stable for dc today.
--- NOTE | 2020-08-22 07:47 | CON ---
DATE OF CONSULTATION: 08/21/2020 CONSULTING PHYSICIAN: Dr. Dickerson REASON FOR CONSULTATION: End-stage renal disease evaluation and care. REASON FOR ADMISSION: Shortness of breath. HISTORY OF PRESENT ILLNESS: A 39-year-old male with history of end-stage renal disease, noncompliance, type 1 diabetes, hypertension, came to the hospital with shortness of breath. He missed dialysis as usual and came to the hospital and Nephrology consulted for emergency dialysis due to hyperkalemia and fluid overload. The patient was seen during dialysis and tolerating well. His potassium was elevated on admission and got a little bit better with medical management overnight. No fever or chills. No nausea or vomiting reported. PAST MEDICAL HISTORY: Positive for end-stage renal disease, type 1 diabetes, hypertension, seizure disorder, anxiety, depression. PAST SURGICAL HISTORY: Fistula surgery, BKA surgery. HOME MEDICATIONS: Reviewed. ALLERGIES: PENICILLIN. SOCIAL HISTORY: History of smoking and illicit drug abuse present. FAMILY HISTORY: No history of kidney disease. REVIEW OF SYSTEMS: CONSTITUTIONAL: Negative for weight loss or gain, ability to conduct usual activities. SKIN: Negative for rash, itching. EYES: Negative for double vision, pain. ENT/MOUTH: Negative for nose bleeding, neck stiffness, pain, tenderness. CARDIOVASCULAR: Negative for palpitations, dyspnea on exertion, orthopnea. RESPIRATORY: Negative for shortness of breath, wheezing, cough, hemoptysis, fever or night sweats. GASTROINTESTINAL: Negative for poor appetite, abdominal pain, heartburn, nausea, vomiting, constipation, or diarrhea. GENITOURINARY: Negative for urgency, frequency, dysuria, nocturia. MUSCULOSKELETAL: Negative for pain, swelling. NEUROLOGIC/PSYCHIATRIC: Negative for anxiety, depression. ALLERGY/IMMUNOLOGIC: Negative for skin rash, bleeding tendency. PHYSICAL EXAMINATION: GENERAL: This is a well-built male, in no apparent distress. VITAL SIGNS: Temperature 97.8, pulse 86, respiratory rate 16, and blood pressure 143/66. HEENT: Atraumatic, normocephalic. Oral mucosa moist. NECK: Supple. CV: S1 and S2. Rate and rhythm regular. RESPIRATORY: Clear. GASTROINTESTINAL: Abdomen is soft. MUSCULOSKELETAL: No tenderness. No edema. DERMATOLOGIC: No skin rash. NEUROLOGIC: Alert and awake. PSYCHIATRIC: Mood and affect normal. LABORATORY DATA: Potassium 6.0, BUN is 65, and creatinine is 9.2. Hemoglobin 12.7. ASSESSMENT AND PLAN: 1. End-stage renal disease, on dialysis. The patient is seen during dialysis, tolerating well. 2. Hyperkalemia. The patient is having emergency dialysis. 3. Edema, controlled. 4. Hypertension. 5. Anemia of chronic disease. 6. Fluid overload. We will remove fluid. 7. Hypoalbuminemia. The patient is seen during dialysis, tolerating well. The patient had emergent dialysis for hyperkalemia and fluid overload. We will continue to follow. Thank you for the consult. Job ID: [id number]
[2020-08-22] MEDS: Cinacalcet HCl 30 MG TAB PO SCH (08:46)
[2020-08-22] MEDS: Aspirin 81 mg Enteric Coated Tablet PO SCH (08:46)
[2020-08-22] MEDS: Sevelamer Carbonate 800 MG TAB PO SCH ×2 (08:46→12:42)
[2020-08-22] MEDS: hydrALAZINE 25 MG TAB PO SCH (08:46)
[2020-08-22] MEDS: Amlodipine 10 MG TAB PO SCH (08:47)
[2020-08-22] MEDS: levETIRAcetam 500 MG TAB PO SCH (08:47)
[2020-08-22] MEDS: Apixaban 5 MG TAB PO SCH (08:47)
[2020-08-22] MEDS: HumaLOG 300 UNITS/3 ML VIAL SC SCH ×2 (11:11→12:41)
[2020-08-22] MEDS: Insulin Glargine 20 UNITS in Pre-Filled Syringe 1 EACH SC SCH (11:12)
[2020-08-22] MEDS ORDERED: Insulin Glargine 10 UNITS in Pre-Filled Syringe 1 EACH SC SCH (11:15)
--- NOTE | 2020-08-22 14:39 | PDOC.NEPPN ---
- Subjective Encounter Date: 08/22/20 Subjective: Patient is seen and examined in the room. Patient complains of intermittent loose BM. - Objective Vital Signs & Weight: Vital Signs (12 hours) Temp Pulse Resp BP BP Pulse Ox 08/22/20 12:50 97.8 F 90 16 111/63 95 08/22/20 08:41 98.4 F 92 12 154/81 H 93 L 08/22/20 04:40 95 08/22/20 03:32 98.8 F 87 14 129/70 95 Weight Admit Weight 169 lb 6.4 oz Weight 152 lb 1.903 oz I&O: 08/21/20 08/22/20 08/23/20 06:59 06:59 05:59 Intake Total 100 Balance 100 Result Diagrams: 08/21/20 12:53 08/22/20 04:00 Additional Labs: Accuchecks 08/22/20 08/22/20 10:17 06:00 POC Glucose 118 H 83 Nephrology ROS - Review of Systems Other: Review of systems Gen.: No fever, no chills All the 14 systems reviewed except for the ones mentioned above are negative - Medication Medications: Active Medications Generic Name Dose Route Start Last Admin Trade Name Freq PRN Reason Stop Dose Admin Amlodipine Besylate 10 mg 08/21/20 09:00 08/22/20 08:47 Amlodipine 10 Mg Tab PO 10 mg DAILY GALEN Administration Apixaban 5 mg 08/21/20 09:00 08/22/20 08:47 Apixaban 5 Mg Tab PO 5 mg BID GALEN Administration Aspirin 81 mg 08/21/20 09:00 08/22/20 08:46 Aspirin 81 Mg Enteric Coated Tablet PO 81 mg DAILY GALEN Administration Cinacalcet 60 mg 08/21/20 09:00 08/22/20 08:46 Cinacalcet Hcl 30 Mg Tab PO 60 mg DAILY GALEN Administration Hydralazine HCl 25 mg 08/21/20 09:00 08/22/20 08:46 Hydralazine 25 Mg Tab PO 25 mg DAILY GALEN Administration Insulin Glargine 20 units/ 0.2 mls @ 0 mls/hr 08/21/20 09:00 08/22/20 11:12 Miscellaneous Medication SC Not Given QAM [facility] Insulin Human Lispro 2 units 08/21/20 08:00 08/22/20 12:41 Humalog 300 Units/3 Ml Vial SC Not Given TID-WM GALEN Insulin Human Lispro 0 units 08/21/20 21:34 08/21/20 21:53 Humalog 300 Units/3 Ml Vial SC 3 unit .BEDTIME SLIDING SC PRN Administration Bedtime Correctional Scale Levetiracetam 500 mg 08/21/20 09:00 08/22/20 08:47 Levetiracetam 500 Mg Tab PO 500 mg BID GALEN Administration Sertraline HCl 25 mg 08/21/20 09:00 08/22/20 08:47 Sertraline Hcl 25 Mg Tab PO 25 mg DAILY GALEN Administration Sevelamer Carbonate 2,400 mg 08/21/20 08:00 08/22/20 12:42 Sevelamer Carbonate 800 Mg Tab PO 2,400 mg TID-WM GALEN Administration - Exam General - other findings: Patient is not in pain or discomfort Eye: PERRL ENT: normocephalic atraumatic Neck: supple, no lymphadenopathy Respiratory - other findings: air entry equal bilateral, no crackles or wheezing Cardiovascular: RRR, no murmur, no gallops, no rubs, normal peripheral pulses Gastrointestinal: soft, non-tender, non-distended Extremities: no cyanosis Extremities - other findings: Right below-knee amputation; left lower extremity in dressing Skin: normal turgor Neurological: CN's grossly intact Neurological - other findings: Patient is awake, following commands Musculoskeletal: normal strength PSYCH: normal affect, normal behavior, A&O x 3 Nephrology Results - Labs Result Diagrams: 08/21/20 12:53 08/22/20 04:00 Lab results: WBC 10.3 thou/uL (4.8-10.8) 08/20/20 23:35 Hgb 12.9 g/dL (14.0-18.0) L 08/21/20 12:53 Hct 41.6 % (42.0-52.0) L 08/21/20 12:53 MCV 91.6 fL (78.0-98.0) 08/20/20 23:35 Plt Count 141 thou/uL (130-400) 08/21/20 12:53 Neutrophils % 76.2 % (42.0-75.0) H 08/20/20 23:35 Sodium 141 mmol/L (136-145) 08/22/20 04:00 Potassium 4.6 mmol/L (3.5-5.1) 08/22/20 04:00 Chloride 101 mmol/L (98-107) 08/22/20 04:00 Carbon Dioxide 27 mmol/L (22-29) 08/22/20 04:00 BUN 38 mg/dL (8.9-20.6) H 08/22/20 04:00 Creatinine 6.15 mg/dL (0.7-1.3) H 08/22/20 04:00 Glucose 134 mg/dL (70-105) H 08/22/20 04:00 Calcium 7.0 mg/dL (7.8-10.44) L 08/22/20 04:00 Total Bilirubin 0.5 mg/dL (0.2-1.2) 08/20/20 23:35 AST 13 U/L (5-34) 08/20/20 23:35 ALT 12 U/L (8-55) 08/20/20 23:35 Alkaline Phosphatase 112 U/L (40-110) H 08/20/20 23:35 Creatine Kinase 77 U/L (30-200) 08/20/20 23:35 Troponin I Less than 0.010 ng/mL (< 0.028) 08/20/20 23:35 B-Natriuretic Peptide 326.7 pg/mL (0-100) H 08/20/20 23:35 Serum Total Protein 7.0 g/dL (6.0-8.3) 08/20/20 23:35 Albumin 3.4 g/dL (3.5-5.0) L 08/20/20 23:35 Lipase 22 U/L (8-78) 08/20/20 23:35 Sodium 141 mmol/L (136-145) 08/22/20 04:00 Potassium 4.6 mmol/L (3.5-5.1) 08/22/20 04:00 Chloride 101 mmol/L (98-107) 08/22/20 04:00 Carbon Dioxide 27 mmol/L (22-29) 08/22/20 04:00 Anion Gap 18 mmol/L (10-20) 08/22/20 04:00 BUN 38 mg/dL (8.9-20.6) H 08/22/20 04:00 Creatinine 6.15 mg/dL (0.7-1.3) H 08/22/20 04:00 Glucose 134 mg/dL (70-105) H 08/22/20 04:00 Calcium 7.0 mg/dL (7.8-10.44) L 08/22/20 04:00 Albumin 3.4 g/dL (3.5-5.0) L 08/20/20 23:35 Nephrology AP PN - Plan Assessment and plan ESRD on hemodialysis Hypertension Anemia Chronic diarrhea Continue with hemodialysis as per schedule. Patient had hemodialysis yesterday. Monitor hemoglobin and improvement in transfuse PRBC as needed. Discussed with RN
[2020-08-22 16:00] VITALS: BP 128/62; TEMP 97.6
--- NOTE | 2020-08-25 01:46 | DIS ---
DATE OF ADMISSION: 08/21/2020 DATE OF DISCHARGE: 08/22/2020 RESIDENT: Karlie Garzon, PGY-1. ADMITTING ATTENDING: Dr. Chela Contreras. DISCHARGE ATTENDING: Dr. Efraín Mckinley. CONSULTS: Nephrology. PROCEDURES: None. PRIMARY DIAGNOSIS: Hyperkalemia secondary to missed dialysis. SECONDARY DIAGNOSES: 1. Diabetes, type 2. 2. Chronic diarrhea. 3. Seizure disorder. 4. Hypertension. 5. History of cerebrovascular accident. 6. History of deep venous thrombosis. 7. Substance abuse. 8. Tobacco abuse. DISCHARGE MEDICATIONS: 1. Acetaminophen 650 mg q.4 hours p.r.n. 2. Amlodipine 10 mg daily. 3. Eliquis 5 mg b.i.d. 4. Aspirin 81 mg daily. 5. Sensipar 60 mg daily. 6. Lomotil 2 tabs t.i.d. p.r.n. 7. Glucagon 1 mg IM as needed. 8. Humalog 3 units subcu t.i.d. 9. Hydralazine 25 mg daily. 10. Glargine 20 units q.a.m. 11. Keppra 500 mg b.i.d. 12. Sertraline 25 mg daily. 13. Sevelamer carbonate 2400 mg t.i.d. HISTORY OF PRESENT ILLNESS: A 39-year-old male with history of end-stage renal disease, type 2 diabetes, seizures, hypertension, substance abuse, presented to the ED with complaints of shortness of breath. The patient's normal hemodialysis schedule is Monday, Monday, and Monday. He states he missed his most recent dialysis session due to chronic diarrhea. He had generalized weakness, was unable to transition to his wheelchair, and laid on the ground until his mother came home and found him and called EMS. Upon arrival in the ED, noted to have a potassium of 6, BUN is 65, creatinine 9.25, glucose 126, calcium 7.2. BNP 326. Anion gap was 18. The patient given 1 amp of bicarb, 10 units of Novolin, and 1 amp of D50. Anion gap resolved quickly. EKG showed normal sinus rhythm with no ST changes. Nephrology was consulted from the ED and stated the patient would have dialysis the next day. After dialysis, the patient's potassium was 4.6; BUN 27; creatinine 4.54, which was back to baseline. The patient stated that he felt back to his baseline after dialysis. He was noted to have large wounds on left lower extremity. Wound Care was consulted. They cleaned and wrapped left lower extremity and recommended outpatient wound care followup. The patient was stable for discharge. DISPOSITION: Discharged home. DISCHARGE INSTRUCTIONS: Diet: Renal, high protein. Activity: As tolerated. Followup: Follow up with outpatient wound care on 08/24. Follow up with primary care provider in 1 week; and with Dr. Hurd, storm door maker, in 2 to 3 weeks; and follow up with outpatient dialysis as regularly scheduled. Follow up with [facility] as scheduled. Job ID: [id number]
--- NOTE | 2020-08-29 16:03 | EKG ---
Test Reason : Blood Pressure : / mmHG Vent. Rate : 090 BPM Atrial Rate : 090 BPM P-R Int : 136 ms QRS Dur : 084 ms QT Int : 372 ms P-R-T Axes : 069 033 048 degrees QTc Int : 455 ms Normal sinus rhythm Low voltage QRS Septal infarct , age undetermined Abnormal ECG Confirmed by MERLIN DUMONT, WICHO ([id number]), editor dictionary ABRIL VAZQUEZ ([id number]) on 08/29/2020 4:03:17 PM Referred By: Confirmed By:WICHO BOYER MD
== END 2020-08-22 16:50 | disposition home or self-care (01) | DRG 640 ==
LOC: ERS 22:13 → 2NO 08-21 00:39
PROVIDERS: ADMIT Student in an Organized Health Care Education/Training Program; ATTEND Student in an Organized Health Care Education/Training Program
PROC: 5A1D70Z Performance of Urinary Filtration, Intermittent, Less than 6 Hours Per Day (ICD-10-PCS; principal; 2020-08-21)
DX: E87.5 Hyperkalemia (principal); N18.6 End stage renal disease; I12.0 Hypertensive chronic kidney disease with stage 5 chronic kidney disease or end stage renal disease; J81.1 Chronic pulmonary edema; E87.2 Acidosis; E11.22 Type 2 diabetes mellitus with diabetic chronic kidney disease; G40.909 Epilepsy, unspecified, not intractable, without status epilepticus; L89.892 Pressure ulcer of other site, stage 2; Z20.828 Contact with and (suspected) exposure to other viral communicable diseases; K52.9 Noninfective gastroenteritis and colitis, unspecified; F17.210 Nicotine dependence, cigarettes, uncomplicated; E88.09 Other disorders of plasma-protein metabolism, not elsewhere classified; E78.00 Pure hypercholesterolemia, unspecified; Z79.4 Long term (current) use of insulin; Z99.2 Dependence on renal dialysis; Z88.0 Allergy status to penicillin; Z79.82 Long term (current) use of aspirin; Z79.899 Other long term (current) drug therapy; Z86.73 Personal history of transient ischemic attack (TIA), and cerebral infarction without residual deficits; Z86.718 Personal history of other venous thrombosis and embolism; Z89.511 Acquired absence of right leg below knee; D63.1 Anemia in chronic kidney disease
CPT/HCPCS: 36415; 36416; 71045; 80048; 80053; 82010; 82550; 83690; 83880; 84484; 85014; 85018; 85025; 85049; 87635; 90935; 93005; 96374; 96375; G0257; J1815; U0003

== ENCOUNTER 2020-09-02 05:57 | Inpatient (IN) | payer MEDICARE, MEDICAID ==
[2020-09-02 07:20] LABS: #Monocytes 0.8 thou/uL (0.11-0.59); #Neutrophils 9.9 thou/uL (1.40-6.50); %Basophils 0.1 % (0.0-1.0); %Eosinophils 0.1 % (0.0-10.0); %Lymphocytes 8.9 % (21.0-51.0); %Monocytes 6.4 % (0.0-10.0); %Neutrophils 84.5 % (42.0-75.0); Hemoglobin 10.8 g/dL (14.0-18.0); Mean Corpuscular Hemoglobin 27.7 pg (27.0-31.0); Mean Corpuscular Volume 95.5 fL (78.0-98.0); Mean Platelet Volume 11.3 fL (7.4-10.4); Platelet Count 167 thou/uL (130-400); RBC Distribution Width 16.9 % (11.5-14.5); White Blood Cell (WBC) Count 11.8 thou/uL (4.8-10.8)
[2020-09-02 07:41] LABS: Band 1 % (5-11); Hypochromia SLIGHT = 6-15 cells (100X) (0-5/hpf); Lymphocytes 12 % (21-51); MDiff Complete? YES; Monocytes 5 % (0-10); Neutrophil 82 % (42-75); Platelet Morphology Comment Appears Adequate; Polychromasia SLIGHT = 2-3 cells (100X) (0-2/hpf)
[2020-09-02 07:47] LABS: ALT (SGPT) Less than 7 U/L (8-55); AST (SGOT) 15 U/L (5-34); Albumin 3.4 g/dL (3.5-5.0); Alkaline Phosphatase 144 U/L (40-110); BUN (Urea Nitrogen) 123 mg/dL (8.9-20.6); Bilirubin, Total 0.4 mg/dL (0.2-1.2); CK (CPK) 180 U/L (30-200); Calc. Creatinine Clearance 0 mL/min (70-130); Calcium 6.7 mg/dL (7.8-10.44); Chloride 99 mmol/L (98-107); Globulin 3.4 g/dL (2.4-3.5); Glucose 380 mg/dL (70-105); Magnesium 3.1 mg/dL (1.6-2.6); Protein, Total 6.8 g/dL (6.0-8.3); Sodium 137 mmol/L (136-145)
[2020-09-02 07:57] LABS: Carbon Dioxide Less than 8 mmol/L (22-29); Phosphorus 13.5 mg/dL (2.3-4.7); Potassium 8.2 mmol/L (3.5-5.1)
[2020-09-02] MEDS ORDERED: Calcium Chloride 1 GM/10 ML Abboject SYRINGE ONE (08:23)
[2020-09-02] MEDS ORDERED: Insulin Regular 300 UNITS/3 ML VIAL ONE (08:23)
[2020-09-02] MEDS ORDERED: Sodium Bicarb 50 MEQ/50 ML Abboject 8.4% SYRINGE ONE (08:23)
[2020-09-02] MEDS ORDERED: INSULIN REGULAR IN 0.9 % NACL 100 UNIT/100 ML BAG ONE (09:01)
[2020-09-02 09:18] LABS: Base Excess-Venous -23.6 mmol/L (-2.0 to 3.0); Bicarbonate (HCO3v) 8.8 mmol/L (22.0-28.0); CO2 Tension (PvCO2) 46.4 mmHg (40.0-50.0); Calcium, Ionized 0.78 mmol/L (1.15-1.33); Chloride 110 mmol/L (98-107); Hemoglobin - Calc 10.8 g/dL (14.0-18.0); Potassium 7.6 mmol/L (3.5-5.1); Sodium 127 mmol/L (138-145); T. Carbon Dioxide 10.2 mmol/L (22.0-28.0); vO2 Saturation-calc 87.1 % (60.0-85.0)
[2020-09-02] MEDS ORDERED: Vancomycin 1 GM/200 ML BAG ONE (09:32)
[2020-09-02] MEDS ORDERED: Cefepime 1 GM VIAL ONE (09:32)
--- NOTE | 2020-09-02 09:35 | RAD ---
CHEST 1 VIEW: Date: 09/02/2020 HISTORY: Follow-up dyspnea. COMPARISON: 08/20/2020. FINDINGS: Right central line in place. Bilateral vascular grafts of the right and left subclavian veins and bra chial vein region on the left. Large right pleural effusion. Minimal bilateral vascular congestion. N o overt cardiomegaly. Slight blunting of the left costophrenic angle. IMPRESSION: 1. Large right pleural effusion. 2. Right central line in place. 3. Slight blunting of left costophrenic angle. POS: RRE
[2020-09-02] MEDS ORDERED: INSULIN REGULAR IN 0.9 % NACL 100 UNIT in Premix Bag 1 BAG IVPB SCH (09:45)
[2020-09-02] MEDS ORDERED: Cefepime 1 GM in Sodium Chloride 0.9% 100 ML IVPB SCH (09:45)
[2020-09-02] MEDS ORDERED: Vancomycin 1 GM in Premix Bag 1 BAG IVPB SCH (09:45)
--- NOTE | 2020-09-02 11:12 | PDOC.FPRHP ---
- History of Present Illness Chief Complaint: altered History of Present Illness: Mr. Brush is a 39 yo AAM well known to our service with ESRD on HD and type 2 DM. He came into the ER by EMS for AMS. He is unable to provide any history currently but he has poor compliance with HD so I suspect that is the reason is here today. He was found to be acidotic, hyperkalemic and in DKA and started in insulin gtt and given 1g CaCl in the ER, 1 amp Bicarb and a dose of vanc & cefepime. Dr. Hurd was consulted in which urgent HD is planned. He is hyperkalemic ~7 with no T wave changes. On my exam he is disoriented responding to some commands and arousable with no signs of respiratory distress. He had a R IJ central line placed in the ER. ED Course: 1g Cefepime, 1g Vanc, 150mL/hr of D5W, 16U Novolin, 1 amp bicarb, 1 g CaCl - Allergies/Adverse Reactions Allergies Allergy/AdvReac Type Severity Reaction Status Date / Time Penicillins Allergy Unknown Verified 08/21/20 02:56 - Home Medications Medication Instructions Recorded Confirmed Type HumaLOG [HumaLOG Vial] 3 units SC TID-WM vial 11/26/19 06/26/20 Rx levETIRAcetam [Keppra] 500 mg PO BID #0 tab 11/26/19 06/26/20 Rx Diphenoxylate HCl/Atropine 2 tab PO TID PRN #60 tab 02/19/20 06/26/20 Rx [Lomotil] Apixaban [Eliquis] 5 mg PO BID #60 tab 05/26/20 06/26/20 Rx Insulin Glargine [Lantus Vial] 20 units SC QAM vial 05/26/20 06/26/20 Rx Acetaminophen [Tylenol Regular 650 mg PO Q4HR PRN 07/12/20 07/31/20 History Strength] Aspirin [Ecotrin Low Strength] 81 mg PO DAILY 07/12/20 07/31/20 History Cinacalcet HCl [Sensipar] 60 mg PO DAILY 07/12/20 07/31/20 History Sertraline HCl 25 mg PO DAILY 07/12/20 07/31/20 History Sevelamer Carbonate [Renvela] 2,400 mg PO TID 07/12/20 07/31/20 History Amlodipine [Norvasc] 10 mg PO DAILY #14 tab 07/16/20 07/31/20 Rx Glucagon 1 mg IM PRN PRN #5 vial 07/16/20 07/31/20 Rx hydrALAZINE [Apresoline] 25 mg PO DAILY #14 tab 07/16/20 07/31/20 Rx Insulin Glargine [Lantus] 20 units SC QAM 07/31/20 07/31/20 History Amlodipine [Norvasc] 10 mg PO DAILY tab 08/22/20 Rx Apixaban [Eliquis] 5 mg PO BID tab 08/22/20 Rx Aspirin [Ecotrin Low Strength] 81 mg PO DAILY tab 08/22/20 Rx Cinacalcet HCl [Sensipar] 60 mg PO DAILY tab 08/22/20 Rx Diphenoxylate HCl/Atropine 2 tab PO TID PRN tab 08/22/20 Rx [Lomotil] HumaLOG [HumaLOG Vial] 2 units SC TID-WM vial 08/22/20 Rx Insulin Glargine [Lantus Vial] 20 units SC QAM vial 08/22/20 Rx Sertraline HCl [Zoloft] 25 mg PO DAILY tab 08/22/20 Rx Sevelamer Carbonate [Renvela] 2,400 mg PO TID-WM tab 08/22/20 Rx hydrALAZINE [Apresoline] 25 mg PO DAILY tab 08/22/20 Rx levETIRAcetam [Keppra] 500 mg PO BID tab 08/22/20 Rx - History PMHx: DMI, HTN, ESRD on HD, sz disorder, anxiety/depression, CVAx2 PSHx: Fistula R arm, L BKA FHx: non-contributory Social: tobacco-smokes 1/2 ppd, smokes marijuana 3-4x/wk - last used a week ago, hx PCP use - Review of Systems ROS unobtainable: due to mental status - Vital signs BP: 107/53 HR: 80 RR: 19 Tmax: 97.3 Pox: 95% on 1L Wt: 74.7kg - Physical Exam Constitutional: NAD -Constitutional: awake responding to verbal and physical commands but disoriented HEENT: normocephalic and atraumatic, PERRLA, EOMI, normal nasal mucosa, oropharynx clear Neck: supple, trachea midline Heart: no murmurs/rubs/gallops, pulses present -Heart: tachycardic Lungs: CTAB, no respiratory distress, good air movement Abdomen: soft, non-tender -Neurological: unable to assess due to mental status Heme/Lymphatic: no unusual bruising or bleeding, no purpura -Psychiatric: unable to assess mentation FMR H&P: Results - Labs Result Diagrams: 09/02/20 07:07 09/02/20 07:07 Lab results: WBC 11.8 thou/uL (4.8-10.8) H 09/02/20 07:07 Hgb 10.8 g/dL (14.0-18.0) L 09/02/20 07:07 Hct 37.2 % (42.0-52.0) L 09/02/20 07:07 MCV 95.5 fL (78.0-98.0) 09/02/20 07:07 Plt Count 167 thou/uL (130-400) 09/02/20 07:07 Neutrophils % 84.5 % (42.0-75.0) H 09/02/20 07:07 Band Neuts % (Manual) 1 % (5-11) L 09/02/20 07:07 VBG pCO2 46.4 mmHg (40.0-50.0) 09/02/20 09:14 VBG pO2 89.3 mmHg (35.0-45.0) H 09/02/20 09:14 Sodium 137 mmol/L (136-145) 09/02/20 07:07 Potassium 8.2 mmol/L (3.5-5.1) H* 09/02/20 07:07 Chloride 99 mmol/L (98-107) 09/02/20 07:07 Carbon Dioxide Less than 8 mmol/L (22-29) L* 09/02/20 07:07 BUN 123 mg/dL (8.9-20.6) H 09/02/20 07:07 Creatinine 13.39 mg/dL (0.7-1.3) H 09/02/20 07:07 Glucose 380 mg/dL (70-105) H 09/02/20 07:07 Lactic Acid 1.0 mmol/L (0.5-2.2) 09/02/20 08:43 Calcium 6.7 mg/dL (7.8-10.44) L 09/02/20 07:07 Total Bilirubin 0.4 mg/dL (0.2-1.2) 09/02/20 07:07 AST 15 U/L (5-34) 09/02/20 07:07 ALT Less than 7 U/L (8-55) L 09/02/20 07:07 Alkaline Phosphatase 144 U/L (40-110) H 09/02/20 07:07 Creatine Kinase 180 U/L (30-200) 09/02/20 07:07 B-Natriuretic Peptide 1990.9 pg/mL (0-100) H 09/02/20 07:07 Serum Total Protein 6.8 g/dL (6.0-8.3) 09/02/20 07:07 Albumin 3.4 g/dL (3.5-5.0) L 09/02/20 07:07 - EKG Interpretation EKs tdegree AVB, QTc 495ms, no acute ST/T wave changes. LBBB. - Radiology Interpretation Chest x-ray Status: image reviewed by me, report reviewed by me Additional comment: Large right pleural effusion, right central line in place, slight blunting of left costophrenic angle FMR H&P: A/P - Plan A/P: #AG acidosis 2/2 DKA -Started on DKA protocol, continue with q2hour BMP until AG closes and can transition pending mentation -Likely 2/2 to non compliance -pH 6.8, AG 30s -Vital signs can be explained by DKA, will not continue abx. Low supsicion for infection at this time -Admit to IMCU/Inpatient #DKA -see above -diabetes education when stabilized #Hyperkalemia 2/2 missed HD -No T wave changes -s/p 1g CaCl & now on insulin gtt -Urgent dialysis planned, can recheck after #IDDM2 -See above #Hx of CVA -Stable, aware #Hx of DVTs -Can continue home eliquis #Substance abuse -encourage cessation #Seizure disorder -Continue home meds -Seizure precuations #Chronic diarrhea -Stable, no imodium Code: Full PCP: LBuse/Tamp dvt ppx: heparin admit: IMCU/inpt Lines: R IJ Dispo: >2 midnights FMR H&P: Upper Level - Plan Date/Time: 09/02/20 1110 Addendum - Attending - Attending Attestation Date/Time: 09/02/20 1131 I personally evaluated the patient and discussed the management with Dr. Saul/Sha. I agree with the History, Examination, Assessment and Plan documented above with any addition or exceptions noted below. Patient here due to noncompliance with medical therapy. Needs emergent HD and insulin for his hyperkalemia in setting of ESRD on HD. Begin insulin drip for now but anticipate that as he obtains HD that his acid/base disturbance will subside. He has been adequately covered with antibiotics in the ED, do not see major suspicion for infectious cause at this time.
[2020-09-02] MEDS ORDERED: Acetaminophen 325 MG TAB PO PRN (12:15)
[2020-09-02] MEDS ORDERED: Dextrose 5% in Water 1,000 ML IV PRN (12:15)
[2020-09-02] MEDS ORDERED: Senokot S 8.6-50 MG TAB PO PRN (12:15)
[2020-09-02] MEDS ORDERED: Ondansetron ODT 4 MG TAB PO PRN (12:15)
--- NOTE | 2020-09-02 12:22 | CON ---
DATE OF CONSULTATION: 09/02/2020 CONSULTING PHYSICIAN: ER physician. REASON FOR CONSULTATION: Hyperkalemia. REASON FOR ADMISSION: Shortness of breath and altered mentation. HISTORY OF PRESENT ILLNESS: This is a 39-year-old male with history of end-stage renal disease, hypertension, substance abuse, came to the hospital with altered mentation. The patient was found down. He is not able to give a good history. He is noncompliant with dialysis. He missed 2 sessions of dialysis and is not feeling well. PAST MEDICAL HISTORY: Positive for end-stage renal disease, on hemodialysis; hypertension; type 1 diabetes; seizure disorder; anxiety; depression. PAST SURGICAL HISTORY: Fistula surgery, amputations, dialysis access placement. HOME MEDICATIONS: Reviewed. ALLERGIES: PENICILLIN. SOCIAL HISTORY: History of tobacco and illicit drug abuse present. FAMILY HISTORY: No history of kidney disease. REVIEW OF SYSTEMS: The following complete review of systems was negative, unless otherwise mentioned in the HPI or below: Constitutional: Weight loss or gain, ability to conduct usual activities. Skin: Rash, itching. Eyes: Double vision, pain. ENT/Mouth: Nose bleeding, neck stiffness, pain, tenderness. Cardiovascular: Palpitations, dyspnea on exertion, orthopnea. Respiratory: Shortness of breath, wheezing, cough, hemoptysis, fever or night sweats. Gastrointestinal: Poor appetite, abdominal pain, heartburn, nausea, vomiting, constipation, or diarrhea. Genitourinary: Urgency, frequency, dysuria, nocturia. Musculoskeletal: Pain, swelling. Neurologic/Psychiatric: Anxiety, depression. Allergy/Immunologic: Skin rash, bleeding tendency. PHYSICAL EXAMINATION: GENERAL: This is a well-built male, in no apparent distress. VITAL SIGNS: Reviewed. HEENT: Atraumatic and normocephalic. NECK: Supple. CV: S1 and S2 heard. RESPIRATORY: Clear. GI: Abdomen is distended. MUSCULOSKELETAL: No tenderness. 1 to 2+ edema. DERMATOLOGIC: No skin rash. NEUROLOGIC: Somnolent. LABORATORY DATA: Hemoglobin 10.8. Potassium is 7.6, sodium 127, bicarb less than 8, phosphorus 13.5. ASSESSMENT AND PLAN: 1. End-stage renal disease. Plan to have emergent dialysis for hyperkalemia. 2. Severe life-threatening hyperkalemia. 3. Hyponatremia. 4. Hyperglycemia. 5. Possible DKA, acidosis. 6. Hypocalcemia. 7. Hyperphosphatemia. 8. Hypoalbuminemia. 9. History of hypertension. 10. Noncompliance. Prognosis is guarded. Plan is to have emergent dialysis. Dialysis nurse notified. Thank you for the consult. Job ID: [id number]
[2020-09-02] MEDS ORDERED: Sodium Chloride 0.9% 1,000 ML IV PRN ×4 (12:25)
[2020-09-02] MEDS ORDERED: Dextrose 5 %-0.45 % NaCl 1,000 ML IV PRN (12:25)
[2020-09-02] MEDS ORDERED: D5 1/2 NS w/20 mEq KCL 1,000 ML IV PRN (12:25)
[2020-09-02] MEDS ORDERED: NS 0.9% w/ 20 MEQ KCL 1,000 ML IV PRN ×2 (12:25)
[2020-09-02] MEDS ORDERED: Electrolyte Replacement Protocol 1 EACH IVPB ONE (12:25)
[2020-09-02] MEDS ORDERED: HUMULIN R 100 UNITS in Sodium Chloride 0.9% 100 ML IVPB SCH (12:30)
[2020-09-02] MEDS ORDERED: Electrolyte Replacement Protocol FS PRN (13:00)
[2020-09-02 13:30] LABS: Anion Gap 33 mmol/L (10-20); BUN (Urea Nitrogen) 123 mg/dL (8.9-20.6); Calc. Creatinine Clearance 0 mL/min (70-130); Carbon Dioxide 12 mmol/L (22-29); Chloride 100 mmol/L (98-107); Glucose 381 mg/dL (70-105); Potassium 6.2 mmol/L (3.5-5.1); Sodium 139 mmol/L (136-145)
[2020-09-02 15:42] LABS: Anion Gap 26 mmol/L (10-20); BUN (Urea Nitrogen) 70 mg/dL (8.9-20.6); Calc. Creatinine Clearance 0 mL/min (70-130); Calcium 7.4 mg/dL (7.8-10.44); Carbon Dioxide 19 mmol/L (22-29); Chloride 98 mmol/L (98-107); Glucose 235 mg/dL (70-105); Potassium 3.9 mmol/L (3.5-5.1); Sodium 139 mmol/L (136-145)
[2020-09-02 17:27] LABS: Anion Gap 22 mmol/L (10-20); BUN (Urea Nitrogen) 53 mg/dL (8.9-20.6); Calc. Creatinine Clearance 0 mL/min (70-130); Calcium 7.6 mg/dL (7.8-10.44); Carbon Dioxide 23 mmol/L (22-29); Chloride 98 mmol/L (98-107); Glucose 172 mg/dL (70-105); Potassium 3.7 mmol/L (3.5-5.1); Sodium 139 mmol/L (136-145)
[2020-09-02] MEDS ORDERED: Dextrose 10% in Water 1,000 ML IV SCH ×2 (18:15→23:45)
[2020-09-02] MEDS: Sodium Bicarbonate 150 MEQ in Dextrose 5% in Water 1,000 ML IV SCH (19:00)
[2020-09-02] MEDS: levETIRAcetam 500 MG TAB PO SCH (20:40)
[2020-09-02] MEDS: Apixaban 5 MG TAB PO SCH (20:41)
[2020-09-02 20:53] LABS: Anion Gap 22 mmol/L (10-20); BUN (Urea Nitrogen) 62 mg/dL (8.9-20.6); Calc. Creatinine Clearance 12 mL/min (70-130); Calcium 7.1 mg/dL (7.8-10.44); Carbon Dioxide 23 mmol/L (22-29); Chloride 98 mmol/L (98-107); Glucose 114 mg/dL (70-105); Potassium 4.2 mmol/L (3.5-5.1); Sodium 139 mmol/L (136-145)
[2020-09-02] MEDS: D5 1/2 NS w/20 mEq KCL 1,000 ML IV SCH (21:37)
[2020-09-02 22:45] LABS: Anion Gap 21 mmol/L (10-20); BUN (Urea Nitrogen) 64 mg/dL (8.9-20.6); Calc. Creatinine Clearance 12 mL/min (70-130); Calcium 6.9 mg/dL (7.8-10.44); Carbon Dioxide 23 mmol/L (22-29); Chloride 99 mmol/L (98-107); Glucose 97 mg/dL (70-105); Potassium 4.2 mmol/L (3.5-5.1); Sodium 139 mmol/L (136-145)
[2020-09-03] MEDS: NS 0.9% w/ 20 MEQ KCL 1,000 ML/1,000 ML BAG IV SCH ×2 (00:29→20:29)
[2020-09-03 00:52] LABS: Anion Gap 22 mmol/L (10-20); BUN (Urea Nitrogen) 63 mg/dL (8.9-20.6); Calc. Creatinine Clearance 12 mL/min (70-130); Calcium 6.8 mg/dL (7.8-10.44); Carbon Dioxide 20 mmol/L (22-29); Chloride 100 mmol/L (98-107); Glucose 73 mg/dL (70-105); Potassium 4.5 mmol/L (3.5-5.1); Sodium 137 mmol/L (136-145)
[2020-09-03] MEDS: Dextrose 50% Abboject 50 ML SYRINGE SLOW IVP PRN (01:03)
[2020-09-03] MEDS: D5 1/2 NS w/20 mEq KCL 1,000 ML IV SCH ×3 (01:07→09:32)
[2020-09-03] MEDS: Sodium Bicarbonate 150 MEQ in Dextrose 5% in Water 1,000 ML IV SCH ×2 (01:08→09:32)
[2020-09-03] MEDS: Dextrose 10% in Water 1,000 ML IV SCH ×3 (04:43→21:42)
[2020-09-03 07:11] LABS: ALT (SGPT) 9 U/L (8-55); AST (SGOT) 17 U/L (5-34); Albumin 3.1 g/dL (3.5-5.0); Alkaline Phosphatase 125 U/L (40-110); Anion Gap 18 mmol/L (10-20); BUN (Urea Nitrogen) 63 mg/dL (8.9-20.6); Bilirubin, Total 0.4 mg/dL (0.2-1.2); Calc. Creatinine Clearance 12 mL/min (70-130); Calcium 6.6 mg/dL (7.8-10.44); Carbon Dioxide 25 mmol/L (22-29); Chloride 97 mmol/L (98-107); Globulin 3.2 g/dL (2.4-3.5); Glucose 81 mg/dL (70-105); Potassium 4.8 mmol/L (3.5-5.1); Protein, Total 6.3 g/dL (6.0-8.3); Sodium 135 mmol/L (136-145)
[2020-09-03 07:20] LABS: #Eosinphils 0.1 thou/uL (0.0-0.7); #Lymphocytes 0.9 thou/uL (1.20-3.40); #Monocytes 1.2 thou/uL (0.11-0.59); #Neutrophils 9.8 thou/uL (1.40-6.50); %Basophils 0.2 % (0.0-1.0); %Eosinophils 0.5 % (0.0-10.0); %Lymphocytes 7.5 % (21.0-51.0); %Monocytes 10.2 % (0.0-10.0); %Neutrophils 81.6 % (42.0-75.0); Hemoglobin 11.2 g/dL (14.0-18.0); Mean Corpuscular HGB CONC 31.1 g/dL (32.0-36.0); Mean Corpuscular Hemoglobin 28.2 pg (27.0-31.0); Mean Corpuscular Volume 90.8 fL (78.0-98.0); Mean Platelet Volume 11.9 fL (7.4-10.4); Platelet Count 166 thou/uL (130-400); RBC Distribution Width 16.7 % (11.5-14.5); Red Blood Cell (RBC) Count 3.97 mill/uL (4.70-6.10)
--- NOTE | 2020-09-03 08:07 | PDOC.FM ---
- Subjective Subjective: Patient reports doing well this am. No acute concerns, feeling better. Relative in the room who I discussed care with. - Objective Vital Signs & Weight: Vital Signs (12 hours) Temp Pulse Ox 09/03/20 07:05 97.9 F 09/03/20 03:45 98.4 F 09/03/20 00:00 97.2 F L 09/02/20 23:10 97.5 F L 09/02/20 22:00 98.5 F 09/02/20 20:00 97 Weight Weight 71.441 kg Most Recent Monitor Data Heart Rate from ECG 86 NIBP 117/62 NIBP BP-Mean 80 Respiration from ECG 35 SpO2 96 I&O: 09/02/20 09/03/20 09/04/20 06:59 06:59 06:59 Intake Total 1796 Output Total 0 Balance 1796 Result Diagrams: 09/03/20 06:20 09/03/20 06:20 Phys Exam - Physical Examination Constitutional: NAD Respiratory: no wheezing, no rales, no rhonchi Cardiovascular: RRR, no significant murmur, no rub Gastrointestinal: soft, non-tender, no distention, positive bowel sounds Musculoskeletal: no edema R BKA Dx/Plan - Plan Plan: AG acidosis 2/2 DKA - On DKA protocol, continue with q2hour BMP until AG closes and can transition pending mentation - Likely 2/2 to non compliance, on admission pH 6.8, AG 30s - AG 17 this AM, continue to monitor, on D5 NS with KCl - When gap closes, BG <200, bicarb >15, will give home dose insulin, let patient eat, and continue to monitor BMP DKA -see above -diabetes education when stabilized Hyperkalemia, resolved - No T wave changes - Resolved, now wnl-4.5 on am BMP IDDM2 -See above Hx of CVA -Stable, aware Hx of DVTs -Can continue home eliquis Substance abuse -encourage cessation Seizure disorder -Continue home meds -Seizure precuations Chronic diarrhea -Stable, no imodium Code: Full PCP: LBuse/Tamp dvt ppx: heparin admit: IMCU/inpt Lines: R IJ Dispo: >2 midnights Addendum - Attending - Attending Attestation Date/Time: 09/03/20 1133 I personally evaluated the patient and discussed the management with Dr. Little. I agree with the History, Examination, Assessment and Plan documented above with any addition or exceptions noted below. Improved after HD and insulin drip. Transition to SQ insulin, continue HD per Nephro. Monitor blood sugars.
[2020-09-03] MEDS: levETIRAcetam 500 MG TAB PO SCH ×2 (08:46→20:30)
[2020-09-03] MEDS: Apixaban 5 MG TAB PO SCH ×2 (08:47→20:29)
[2020-09-03] MEDS: Insulin Glargine 20 UNITS in Pre-Filled Syringe 1 EACH SC SCH (09:52)
--- NOTE | 2020-09-03 11:11 | PRG ---
DATE OF SERVICE: 09/03/2020 SUBJECTIVE: Patient was seen and examined at bedside and overnight events noted. Patient denies any shortness of breath or chest pain or palpitation. No history of nausea or vomiting or diarrhea or fever or chills or cramps. OBJECTIVE: GENERAL: This is a well-built male, in no apparent distress. VITAL SIGNS: Temperature 97.7. Pulse 87. Respiratory rate 18. Blood pressure 120/71. HEENT: Atraumatic, normocephalic. Oral mucosa is moist. NECK: Supple. CARDIOVASCULAR: S1, S2 heard. Rate and rhythm regular. RESPIRATORY: Clear to auscultation. GASTROINTESTINAL: Abdomen is soft. MUSCULOSKELETAL: No tenderness. No edema. DERMATOLOGIC: No skin rash. NEUROLOGIC: Alert and awake and oriented x3. No focal neurologic deficits. Moving all the extremities. PSYCHIATRIC: Mood and affect normal. LABORATORY DATA: Potassium 4.8, BUN is 63, creatinine is 8.1. ASSESSMENT AND PLAN: 1. End-stage renal disease. Labs are better after emergency dialysis yesterday. 2. Severe life-threatening hyperkalemia on admission and much better today. 3. Noncompliance. 4. Hyponatremia. 5. DKA. 6. Hyperphosphatemia. 7. Hypertension. 8. Prognosis guarded. The patient remains noncompliant despite repeated counseling from multiple providers and health care workers. We will continue dialysis as tolerated Monday, Monday, and Monday. Job ID: [id number]
[2020-09-03 11:33] LABS: SARS-CoV-2 MS2 Positive; SARS-CoV-2 N Gene Negative; SARS-CoV-2 S Gene Negative; SARS-CoV-2 by NAA Not Detected (NotDetected); SARS-CoV-2 orf1ab Negative
[2020-09-03 13:43] LABS: Anion Gap 19 mmol/L (10-20); BUN (Urea Nitrogen) 64 mg/dL (8.9-20.6); Calc. Creatinine Clearance 12 mL/min (70-130); Calcium 6.8 mg/dL (7.8-10.44); Carbon Dioxide 25 mmol/L (22-29); Chloride 97 mmol/L (98-107); Glucose 80 mg/dL (70-105); Potassium 4.8 mmol/L (3.5-5.1); Sodium 136 mmol/L (136-145)
[2020-09-03] MEDS ORDERED: FLU VACC QS2020-21(6MOS UP)/PF 60 MCG/0.5 ML SYRINGE IM ONE (21:00)
[2020-09-03 21:43] LABS: Anion Gap 20 mmol/L (10-20); BUN (Urea Nitrogen) 64 mg/dL (8.9-20.6); Calc. Creatinine Clearance 12 mL/min (70-130); Calcium 6.5 mg/dL (7.8-10.44); Carbon Dioxide 23 mmol/L (22-29); Chloride 94 mmol/L (98-107); Glucose 108 mg/dL (70-105); Potassium 4.8 mmol/L (3.5-5.1); Sodium 132 mmol/L (136-145)
[2020-09-04 03:27] LABS: #Basophils 0.1 thou/uL (0.0-0.2); #Eosinphils 0.1 thou/uL (0.0-0.7); #Lymphocytes 1.4 thou/uL (1.20-3.40); #Monocytes 1.1 thou/uL (0.11-0.59); #Neutrophils 5.6 thou/uL (1.40-6.50); %Basophils 0.7 % (0.0-1.0); %Lymphocytes 16.5 % (21.0-51.0); %Monocytes 13.8 % (0.0-10.0); Hemoglobin 11.2 g/dL (14.0-18.0); Mean Corpuscular Hemoglobin 28.7 pg (27.0-31.0); Mean Corpuscular Volume 89.8 fL (78.0-98.0); Mean Platelet Volume 10.8 fL (7.4-10.4); Platelet Count 145 thou/uL (130-400); RBC Distribution Width 16.8 % (11.5-14.5); White Blood Cell (WBC) Count 8.2 thou/uL (4.8-10.8)
[2020-09-04 03:47] LABS: ALT (SGPT) 35 U/L (8-55); AST (SGOT) 49 U/L (5-34); Alkaline Phosphatase 117 U/L (40-110); Anion Gap 19 mmol/L (10-20); BUN (Urea Nitrogen) 62 mg/dL (8.9-20.6); Bilirubin, Total 0.4 mg/dL (0.2-1.2); Calc. Creatinine Clearance 12 mL/min (70-130); Calcium 6.5 mg/dL (7.8-10.44); Carbon Dioxide 22 mmol/L (22-29); Chloride 95 mmol/L (98-107); Globulin 3.6 g/dL (2.4-3.5); Glucose 126 mg/dL (70-105); Potassium 4.9 mmol/L (3.5-5.1); Protein, Total 6.6 g/dL (6.0-8.3); Sodium 131 mmol/L (136-145)
--- NOTE | 2020-09-04 06:12 | PDOC.FM ---
- Subjective Subjective: Patient reports nausea this AM with poor appetite yesterday which limited his ability to eat. - Objective Vital Signs & Weight: Vital Signs (12 hours) Temp Resp Pulse Ox 09/04/20 04:00 98.1 F 12 09/04/20 00:00 97.9 F 09/03/20 20:00 97.9 F 97 Weight Admit Weight 71.441 kg Weight 71.441 kg Most Recent Monitor Data Heart Rate from ECG 82 NIBP 147/71 NIBP BP-Mean 96 Respiration from ECG 12 SpO2 94 I&O: 09/02/20 09/03/20 09/04/20 06:59 06:59 06:59 Intake Total 1796 1683.2 Output Total 0 0 Balance 1796 1683.2 Result Diagrams: 09/04/20 03:07 09/04/20 03:07 Phys Exam - Physical Examination Constitutional: NAD Respiratory: no wheezing, no rales, no rhonchi, clear to auscultation bilateral Cardiovascular: RRR, no significant murmur, no rub Gastrointestinal: soft, non-tender, no distention, positive bowel sounds Musculoskeletal: no edema R BKA, L leg wrapped with NIK bandage @ ankle Dx/Plan - Plan Plan: Metabolic acidosis likely 2/2 resolving DKA - Likely 2/2 to non compliance, on admission pH 6.8, AG 30s - AG 14 this AM, continue to monitor, on IVF - On home SC insulin, encouraged patient to eat - Zofran prn FOR nausea - monitor BMP, likely txfr to floor today DKA, resolved -AG 14, bicarb 22, BG 126 -diabetes education when stabilized Hyperphosphatemia - recheck today Hypocalcemia - could be 2/2 hyperphosphatemia, recheck and replete PRN Hyperkalemia, resolved - No T wave changes - Resolved, now wnl-4.9 on am BMP IDDM2 -See above Hx of CVA -Stable, aware Hx of DVTs -Can continue home eliquis Substance abuse -encourage cessation Seizure disorder -Continue home meds -Seizure precuations Chronic diarrhea -Stable, no imodium Code: Full PCP: LBuse/Tamp dvt ppx: heparin admit: IMCU/inpt Lines: R IJ Dispo: >2 midnights, HH will likely not accept patient per CM, will consult palliative care for discussion of hospice vs alternative planning. Addendum - Attending - Attending Attestation Date/Time: 09/04/20 7552 I personally evaluated the patient and discussed the management with Dr. Little. I agree with the History, Examination, Assessment and Plan documented above with any addition or exceptions noted below. Stable from his ESRD and DM standpoints. Admitted once again due to noncompliance. Monitoring blood glucose and volume status but hopeful to discharge in the next day or so if he does not leave AMA like he tends to do.
[2020-09-04] MEDS: Apixaban 5 MG TAB PO SCH ×2 (08:07→20:09)
[2020-09-04] MEDS: levETIRAcetam 500 MG TAB PO SCH ×2 (08:07→20:09)
[2020-09-04] MEDS: Dextrose 10% in Water 1,000 ML IV SCH (08:08)
[2020-09-04 09:05] LABS: Phosphorus 7.2 mg/dL (2.3-4.7)
[2020-09-04] MEDS ORDERED: Calcium Carbonate 500 MG ChewTAB PO SCH (09:30)
[2020-09-04] MEDS: Insulin Glargine 20 UNITS in Pre-Filled Syringe 1 EACH SC SCH (09:41)
[2020-09-04] MEDS ORDERED: Ondansetron PF 4 MG/2 ML Vial IVP PRN ×2 (12:41→13:20)
[2020-09-04] MEDS ORDERED: HumaLOG 300 UNITS/3 ML VIAL SC PRN (14:11)
[2020-09-04] MEDS: NS 0.9% w/ 20 MEQ KCL 1,000 ML/1,000 ML BAG IV SCH (16:13)
--- NOTE | 2020-09-04 17:16 | PRG ---
DATE OF SERVICE: 09/04/2020 SUBJECTIVE: Patient was seen and examined at bedside and overnight events noted. Patient denies any shortness of breath or chest pain or palpitation. No history of nausea or vomiting or diarrhea or fever or chills or cramps. OBJECTIVE: General: This is a well-built male, in no apparent distress. Vital Signs: Temperature . Heart Rate 87. Respiratory rate 18. Blood pressure 158/92. HEENT: Atraumatic, normocephalic. Oral mucosa is moist. Neck: Supple. Cardiovascular: S1, S2 heard. Rate and rhythm regular. Respiratory: Clear to auscultation. Gastrointestinal: Abdomen is soft. Musculoskeletal: No tenderness. No edema. Dermatologic: No skin rash. Neurologic: Alert and awake and oriented x3. No focal neurologic deficits. Moving all the extremities. Psychiatric: Mood and affect normal. LABORATORY DATA: Potassium 4.9, BUN is 62, and creatinine is 8.5. ASSESSMENT AND PLAN: 1. End-stage renal disease. The patient is seen on dialysis, tolerating well. 2. Fluid overload, limit fluid intake. 3. Hyponatremia. 4. DKA. 5. Hypertension. 6. Noncompliance. Limit fluid intake. We will continue dialysis as tolerated. Labs are looking better. Hyperkalemia, better. Job ID: [id number]
[2020-09-04] MEDS: Dextrose 50% Abboject 50 ML SYRINGE SLOW IVP PRN (20:10)
[2020-09-04] MEDS: Calcium Carbonate 500 MG ChewTAB PO SCH (20:10)
[2020-09-05] MEDS: Dextrose 50% Abboject 50 ML SYRINGE SLOW IVP PRN (00:06)
[2020-09-05 04:46] LABS: #Basophils 0.1 thou/uL (0.0-0.2); #Eosinphils 0.1 thou/uL (0.0-0.7); #Lymphocytes 1.3 thou/uL (1.20-3.40); #Monocytes 0.9 thou/uL (0.11-0.59); #Neutrophils 3.6 thou/uL (1.40-6.50); %Basophils 1.1 % (0.0-1.0); %Eosinophils 1.3 % (0.0-10.0); %Lymphocytes 21.6 % (21.0-51.0); %Monocytes 14.7 % (0.0-10.0); %Neutrophils 61.3 % (42.0-75.0); Hemoglobin 11.2 g/dL (14.0-18.0); Mean Corpuscular HGB CONC 31.4 g/dL (32.0-36.0); Mean Corpuscular Hemoglobin 28.8 pg (27.0-31.0); Mean Corpuscular Volume 91.7 fL (78.0-98.0); Mean Platelet Volume 11.1 fL (7.4-10.4); Platelet Count 124 thou/uL (130-400); RBC Distribution Width 16.3 % (11.5-14.5); Red Blood Cell (RBC) Count 3.88 mill/uL (4.70-6.10); White Blood Cell (WBC) Count 5.9 thou/uL (4.8-10.8)
[2020-09-05 05:07] LABS: ALT (SGPT) 39 U/L (8-55); AST (SGOT) 40 U/L (5-34); Alkaline Phosphatase 113 U/L (40-110); Anion Gap 17 mmol/L (10-20); BUN (Urea Nitrogen) 33 mg/dL (8.9-20.6); Bilirubin, Total 0.5 mg/dL (0.2-1.2); Calc. Creatinine Clearance 17 mL/min (70-130); Carbon Dioxide 26 mmol/L (22-29); Chloride 94 mmol/L (98-107); Globulin 3.4 g/dL (2.4-3.5); Glucose 61 mg/dL (70-105); Potassium 4.4 mmol/L (3.5-5.1); Protein, Total 6.4 g/dL (6.0-8.3); Sodium 133 mmol/L (136-145)
--- NOTE | 2020-09-05 05:34 | PDOC.FM ---
- Subjective Subjective: Pt doing well this morning. States he feels back to baseline. No CP, SOB, N/V. Was able to tolerate diet last night. - Objective Vital Signs & Weight: Vital Signs (12 hours) Temp Pulse Ox 09/05/20 04:55 100 09/05/20 03:36 97.6 F 09/04/20 23:26 98.4 F 09/04/20 20:00 98.9 F 98 Weight Admit Weight 71.441 kg Weight 74.1 kg Most Recent Monitor Data Heart Rate from ECG 83 NIBP 159/88 NIBP BP-Mean 111 Respiration from ECG 7 SpO2 100 I&O: 09/03/20 09/04/20 09/05/20 06:59 06:59 06:59 Intake Total 1796 3533.2 1856 Output Total 0 0 3800 Balance 1796 3533.2 -1944 Result Diagrams: 09/05/20 04:17 09/05/20 03:30 Phys Exam - Physical Examination Constitutional: NAD Respiratory: no wheezing, clear to auscultation bilateral Cardiovascular: RRR, no significant murmur Gastrointestinal: soft, non-tender, no distention R BKA Neurological: non-focal Psychiatric: normal affect, A&O x 3 Deviation from normal: Left leg wrapped Dx/Plan - Plan Plan: Metabolic acidosis likely 2/2 resolving DKA - resolved, AG 13 this AM - On home insulin, monitoring BG closely due to pt not eating well - Zofran prn - monitor BMP, likely txfr to floor today DKA, resolved -diabetes education when stabilized Hyperphosphatemia -13.5-->7.2 Hypocalcemia - Ca 7.0, this appears to be at baseline Hyperkalemia, resolved - No T wave changes - qam BMP IDDM2 -See above Hx of CVA -Stable, aware Hx of DVTs -Can continue home eliquis Substance abuse -encourage cessation Seizure disorder -Continue home meds -Seizure precautions Chronic diarrhea -Stable, no immodium Code: Full PCP: LBuse/Tamp dvt ppx: heparin admit: medical Lines: R IJ Dispo: Nephrology, wound care, CM and palliative consulted, appreciate recs, LOS>48hrs Addendum - Attending - Attending Attestation Date/Time: 09/05/20 1218 I personally evaluated the patient and discussed the management with Dr. Garzon I agree with the History, Examination, Assessment and Plan documented above with any addition or exceptions noted below. Consider more controlled environment i.e. NH doubt if patient would agree however discussed as a possibility with patient during rounds today. Patient with frequent readmissions due to noncompliance with RX and HD and frequent DKA.
[2020-09-05] MEDS: levETIRAcetam 500 MG TAB PO SCH ×2 (09:40→20:52)
[2020-09-05] MEDS: Apixaban 5 MG TAB PO SCH ×2 (09:41→20:53)
[2020-09-05] MEDS: Insulin Glargine 20 UNITS in Pre-Filled Syringe 1 EACH SC SCH (09:43)
[2020-09-05] MEDS: Calcium Carbonate 500 MG ChewTAB PO SCH ×2 (09:43→20:53)
--- NOTE | 2020-09-05 16:56 | PRG ---
DATE OF SERVICE: 09/05/2020 SUBJECTIVE: Patient was seen and examined at bedside and overnight events noted. Patient denies any shortness of breath or chest pain or palpitation. No history of nausea or vomiting or diarrhea or fever or chills or cramps. OBJECTIVE: GENERAL: This is well-built male, in no apparent distress. VITAL SIGNS: Temperature 97.9. Pulse 86. Respiratory rate 20. Blood pressure 191/90. HEENT: Atraumatic, normocephalic. Oral mucosa is moist. NECK: Supple. CARDIOVASCULAR: S1, S2 heard. Rate and rhythm regular. RESPIRATORY: Clear to auscultation. GASTROINTESTINAL: Abdomen is soft. MUSCULOSKELETAL: No tenderness. No edema. DERMATOLOGIC: No skin rash. NEUROLOGIC: Alert and awake and oriented x3. No focal neurologic deficits. Moving all the extremities. PSYCHIATRIC: Mood and affect normal. LABORATORY DATA: Potassium is 4.4, BUN is 33, creatinine 6.06. ASSESSMENT AND PLAN: 1. End-stage renal disease. Continue dialysis. 2. Fluid overload. 3. Hyponatremia. 4. DKA. 5. Hypertension. 6. Noncompliance. 7. Continue dialysis as tolerated. Job ID: [id number]
[2020-09-05] MEDS ORDERED: Labetalol HCl 100 MG/20 ML VIAL SLOW IVP PRN (17:51)
[2020-09-05] MEDS: Amlodipine 10 MG TAB PO SCH (19:10)
[2020-09-05] MEDS: Cinacalcet HCl 30 MG TAB PO SCH (19:10)
[2020-09-05] MEDS: Sevelamer Carbonate 800 MG TAB PO SCH (19:10)
[2020-09-05] MEDS: hydrALAZINE 25 MG TAB PO SCH (20:53)
[2020-09-05] MEDS: Diphenoxylate HCl/Atropine Tablet PO PRN (21:33)
[2020-09-06] MEDS: HumaLOG 300 UNITS/3 ML VIAL SC PRN ×2 (02:21→04:14)
[2020-09-06 04:21] LABS: #Lymphocytes 1.2 thou/uL (1.20-3.40); #Monocytes 0.7 thou/uL (0.11-0.59); %Basophils 0.2 % (0.0-1.0); %Lymphocytes 23.7 % (21.0-51.0); %Monocytes 14.5 % (0.0-10.0); %Neutrophils 60.7 % (42.0-75.0); Hemoglobin 10.9 g/dL (14.0-18.0); Mean Corpuscular HGB CONC 31.2 g/dL (32.0-36.0); Mean Corpuscular Hemoglobin 28.3 pg (27.0-31.0); Mean Corpuscular Volume 90.4 fL (78.0-98.0); Mean Platelet Volume 10.8 fL (7.4-10.4); Platelet Count 123 thou/uL (130-400); RBC Distribution Width 16.2 % (11.5-14.5); Red Blood Cell (RBC) Count 3.85 mill/uL (4.70-6.10)
[2020-09-06 04:48] LABS: ALT (SGPT) 52 U/L (8-55); AST (SGOT) 46 U/L (5-34); Alkaline Phosphatase 112 U/L (40-110); Anion Gap 19 mmol/L (10-20); BUN (Urea Nitrogen) 44 mg/dL (8.9-20.6); Bilirubin, Total 0.4 mg/dL (0.2-1.2); Calc. Creatinine Clearance 14 mL/min (70-130); Calcium 7.1 mg/dL (7.8-10.44); Carbon Dioxide 23 mmol/L (22-29); Chloride 95 mmol/L (98-107); Globulin 3.3 g/dL (2.4-3.5); Glucose 288 mg/dL (70-105); Potassium 4.5 mmol/L (3.5-5.1); Protein, Total 6.3 g/dL (6.0-8.3); Sodium 132 mmol/L (136-145)
--- NOTE | 2020-09-06 05:47 | PDOC.FM ---
- Subjective Subjective: Pt doing well, no complaints. Says he was able to eat a little more yesterday with no N/V. Blood sugars have been more stable. He is considering going to a NH after discharge. He has gone in the past and felt he had good care but he is still unsure if he would rather go back home. - Objective Vital Signs & Weight: Vital Signs (12 hours) Temp Pulse BP Pulse Ox 09/06/20 04:00 97.8 F 09/06/20 03:46 99 09/05/20 23:29 97.1 F L 09/05/20 20:53 90 181/105 H 09/05/20 20:00 96 09/05/20 19:21 97.9 F Weight Admit Weight 71.441 kg Weight 74.1 kg Most Recent Monitor Data Heart Rate from ECG 92 NIBP 139/83 NIBP BP-Mean 101 Respiration from ECG 17 SpO2 100 I&O: 09/04/20 09/05/20 09/06/20 06:59 06:59 06:59 Intake Total 3533.2 2096 450 Output Total 0 3800 Balance 3533.2 -1704 450 Result Diagrams: 09/06/20 04:09 09/06/20 04:09 Phys Exam - Physical Examination Constitutional: NAD Neck: supple R IJ Respiratory: no wheezing, clear to auscultation bilateral Cardiovascular: RRR, no significant murmur Gastrointestinal: soft, non-tender, no distention R BKA Neurological: non-focal Psychiatric: normal affect, A&O x 3 Deviation from normal: L leg wrapped Dx/Plan - Plan Plan: Metabolic acidosis likely 2/2 resolving DKA - resolved - On home insulin - Zofran prn - monitor BMP, likely txfr to floor today - CM consulted for outpatient dialysis chair and possible placement. He has a pattern of non-compliance and frequent bounce back DKA, resolved -diabetes education when stabilized Hyperphosphatemia -13.5-->7.2 Hypocalcemia - Ca 7.0, this appears to be at baseline Hyperkalemia, resolved - No T wave changes - continue to monitor IDDM2 -See above Hx of CVA -Stable, aware Hx of DVTs -Can continue home eliquis Substance abuse -encourage cessation Seizure disorder -Continue home meds -Seizure precautions Chronic diarrhea -Stable, no immodium Code: Full PCP: Latricia/Tamp dvt ppx: heparin admit: medical Lines: R IJ Dispo: Nephrology, wound care, CM and palliative consulted, appreciate recs, LOS>48hrs Addendum - Attending - Attending Attestation Date/Time: 09/06/20 4332 I personally evaluated the patient and discussed the management with Dr. Garzon I agree with the History, Examination, Assessment and Plan documented above with any addition or exceptions noted below. Patient should be stable for transfer to floor continue to consider most supportive outpatient environment options home verse FRANCIS WONG.
[2020-09-06] MEDS: Sevelamer Carbonate 800 MG TAB PO SCH ×3 (08:11→17:38)
[2020-09-06] MEDS: Apixaban 5 MG TAB PO SCH ×2 (08:12→21:51)
[2020-09-06] MEDS: hydrALAZINE 25 MG TAB PO SCH ×3 (08:12→21:50)
[2020-09-06] MEDS: levETIRAcetam 500 MG TAB PO SCH ×2 (08:12→21:52)
[2020-09-06] MEDS: Amlodipine 10 MG TAB PO SCH (08:12)
[2020-09-06] MEDS: Cinacalcet HCl 30 MG TAB PO SCH (08:12)
[2020-09-06] MEDS: Calcium Carbonate 500 MG ChewTAB PO SCH ×2 (08:13→21:52)
[2020-09-06] MEDS: Insulin Glargine 20 UNITS in Pre-Filled Syringe 1 EACH SC SCH (08:13)
[2020-09-06] MEDS: Aspirin Chewable 81 MG TAB PO SCH (08:13)
--- NOTE | 2020-09-06 14:40 | PRG ---
DATE OF SERVICE: 09/06/2020 SUBJECTIVE: Patient was seen and examined at bedside and overnight events noted. Patient denies any shortness of breath or chest pain or palpitation. No history of nausea or vomiting or diarrhea or fever or chills or cramps. OBJECTIVE: GENERAL: This is a well-built male, in no apparent distress. VITAL SIGNS: Temperature 97.4. Heart rate 83. Respiratory rate 16. Blood pressure 138/74. HEENT: Atraumatic, normocephalic. Oral mucosa is moist. NECK: Supple. CARDIOVASCULAR: S1, S2 heard. Rate and rhythm regular. RESPIRATORY: Clear to auscultation. GASTROINTESTINAL: Abdomen is soft. MUSCULOSKELETAL: No tenderness. No edema. DERMATOLOGIC: No skin rash. NEUROLOGIC: Alert and awake and oriented x3. No focal neurologic deficits. Moving all the extremities. PSYCHIATRIC: Mood and affect normal. LABORATORY DATA: Potassium 4.5, BUN is 44, and creatinine is 7.3. ASSESSMENT AND PLAN: 1. End-stage renal disease. We will continue dialysis on Monday, Monday, and Monday. 2. Fluid overload. Limit fluid intake. 3. Hyponatremia. Limit fluid. 4. Hypertension. 5. Noncompliance. 6. Diabetic ketoacidosis. Limit fluid intake. Continue dialysis on Monday, Monday, and Monday. Job ID: [id number]
--- NOTE | 2020-09-07 06:13 | PDOC.FM ---
- Subjective Subjective: Pt resting comfortably. Says he feels back to baseline and would like to go home. - Objective Vital Signs & Weight: Vital Signs (12 hours) Pulse BP Pulse Ox 09/07/20 00:03 92 L 09/06/20 21:50 83 168/80 H 09/06/20 20:00 97 Weight Admit Weight 71.441 kg Weight 74.1 kg Most Recent Monitor Data Heart Rate from ECG 86 NIBP 164/84 NIBP BP-Mean 110 Respiration from ECG 0 SpO2 99 I&O: 09/05/20 09/06/20 09/07/20 06:59 06:59 06:59 Intake Total 2096 690 300 Output Total 3800 Balance -1704 690 300 Result Diagrams: 09/06/20 04:09 09/06/20 04:09 Phys Exam - Physical Examination Constitutional: NAD Neck: supple, full ROM Respiratory: no wheezing, clear to auscultation bilateral Cardiovascular: RRR, no significant murmur Gastrointestinal: soft, non-tender, no distention Neurological: non-focal Psychiatric: A&O x 3 Dx/Plan - Plan Plan: Metabolic acidosis likely 2/2 resolving DKA - resolved - On home insulin - Zofran prn - CM consulted for outpatient dialysis chair and possible placement. He has a pattern of non-compliance and frequent bounce back DKA, resolved -diabetes education Hyperphosphatemia -13.5-->7.2 Hypocalcemia - Ca 7.0, this appears to be at baseline Hyperkalemia, resolved - on HD MWF - continue to monitor IDDM2 -See above Hx of CVA -Stable, aware Hx of DVTs -Can continue home eliquis Substance abuse -encourage cessation Seizure disorder -Continue home meds -Seizure precautions Chronic diarrhea -Stable, no immodium ESRD -on HD MWF Code: Full PCP: LBuse/Tamp dvt ppx: eliquis admit: medical Lines: R IJ Dispo: Stable, Nephrology, wound care, CM and palliative consulted, likely to discharge soon Addendum - Attending - Attending Attestation Date/Time: 09/07/20 2656 I personally evaluated the patient and discussed the management with Dr. Garzon. I agree with the History, Examination, Assessment and Plan documented above with any addition or exceptions noted below. HD per nephro. CM arranged HH agency as his prior HH agency had dismissed him due to non-compliance. possible d/c today.
[2020-09-07] MEDS: Dextrose 50% Abboject 50 ML SYRINGE SLOW IVP PRN ×2 (06:29→16:51)
[2020-09-07] MEDS: Cinacalcet HCl 30 MG TAB PO SCH (10:06)
[2020-09-07] MEDS: Amlodipine 10 MG TAB PO SCH (10:07)
[2020-09-07] MEDS: levETIRAcetam 500 MG TAB PO SCH ×2 (10:07→22:16)
[2020-09-07] MEDS: hydrALAZINE 25 MG TAB PO SCH ×3 (10:07→22:15)
[2020-09-07] MEDS: Aspirin Chewable 81 MG TAB PO SCH (10:07)
[2020-09-07] MEDS: Sevelamer Carbonate 800 MG TAB PO SCH ×3 (10:07→18:14)
[2020-09-07] MEDS: Calcium Carbonate 500 MG ChewTAB PO SCH ×2 (10:07→22:18)
[2020-09-07] MEDS: Apixaban 5 MG TAB PO SCH ×2 (10:08→22:17)
[2020-09-07] MEDS: Insulin Glargine 20 UNITS in Pre-Filled Syringe 1 EACH SC SCH (10:09)
--- NOTE | 2020-09-07 11:19 | PRG ---
DATE OF SERVICE: 09/07/2020 SUBJECTIVE: A 39-year-old gentleman, being seen for end-stage renal disease. The patient denies any nausea, vomiting, or chest pain. OBJECTIVE: General: The patient is awake and alert. Vital Signs: Afebrile, pulse 82, breathing at 16, blood pressure 130/60. HEENT: Head normocephalic and atraumatic. Eyes intact, no ulcers. Nose intact, no ulcers. Ears intact, no ulcers. Neck: Supple. No JVD. Chest: Symmetrical and clear. Cardiovascular: Shows S1 and S2, no rub, no murmur. Gastrointestinal: Abdomen is soft, bowel sounds positive. Extremities: Show no edema or ulcers. Skin: Shows no rash or petechiae. Musculoskeletal: Shows no joint swelling or stiffness. Genitourinary: Shows no Clifton or CVA tenderness. Neurologic: Motor intact. Cranial nerves intact. LABORATORY DATA: Reviewed. ASSESSMENT AND PLAN: 1. Stage 6 chronic kidney disease. Plan dialysis. 2. Hypertension, stable. 3. Anemia, stable. 4. Medication based on GFR appropriate. Job ID: [id number]
--- NOTE | 2020-09-07 16:43 | PDOC.FMACP ---
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 The diagnosis, prognosis and goals of care were discussed. Appropriate forms and documentation to accomplish the goals of care were discussed. All questions were answered. Mr Brush elected to complete MPOA and Directive to Physician. Original and Copy given to patient as well as copy placed on chart for medical records. Confirmed full resuscitation status at this time. Time Spent (mins): 20
[2020-09-08] MEDS: Diphenoxylate HCl/Atropine Tablet PO PRN ×2 (04:56→14:10)
[2020-09-08 05:33] LABS: Anion Gap 16 mmol/L (10-20); BUN (Urea Nitrogen) 29 mg/dL (8.9-20.6); Calc. Creatinine Clearance 17 mL/min (70-130); Calcium 7.4 mg/dL (7.8-10.44); Carbon Dioxide 27 mmol/L (22-29); Chloride 95 mmol/L (98-107); Glucose 134 mg/dL (70-105); Potassium 4.2 mmol/L (3.5-5.1); Sodium 134 mmol/L (136-145)
--- NOTE | 2020-09-08 07:45 | PDOC.FM ---
- Subjective Subjective: Pt was awake and alert this morning. Was ready to go home yesterday but was not able to get a ride after late dialysis, says his dad is coming to get him today as soon as he calls. - Objective Vital Signs & Weight: Vital Signs (12 hours) Temp Pulse Resp BP BP Pulse Ox 09/07/20 22:20 97.8 F 92 16 130/62 92 L 09/07/20 22:15 97.8 F 92 16 130/62 130/62 92 L Weight Admit Weight 71.441 kg Weight 74.1 kg Most Recent Monitor Data Heart Rate from ECG 86 NIBP 164/84 NIBP BP-Mean 110 Respiration from ECG 0 SpO2 99 I&O: 09/07/20 09/08/20 09/09/20 06:59 06:59 06:59 Intake Total 510 600 Balance 510 600 Result Diagrams: 09/06/20 04:09 09/08/20 05:00 Phys Exam - Physical Examination Constitutional: NAD Neck: supple Respiratory: no wheezing, clear to auscultation bilateral Cardiovascular: RRR, no significant murmur Gastrointestinal: soft, non-tender Dx/Plan - Plan Plan: Metabolic acidosis likely 2/2 resolving DKA - resolved - On home insulin - Zofran prn - CM consulted: pt refused home health, placement and hospice care DKA, resolved -diabetes education Hyperphosphatemia -13.5-->7.2 Hypocalcemia - Ca 7.0, this appears to be at baseline Hyperkalemia, resolved - on HD MWF - continue to monitor IDDM2 -See above Hx of CVA -Stable, aware Hx of DVTs -Can continue home eliquis Substance abuse -encourage cessation Seizure disorder -Continue home meds -Seizure precautions Chronic diarrhea -Stable, no immodium ESRD -on HD MWF Code: Full PCP: LBuse/Tamp dvt ppx: eliquis admit: medical Lines: R IJ Dispo: Stable, discharge today Addendum - Attending - Attending Attestation Date/Time: 09/08/20 3174 I personally evaluated the patient and discussed the management with Dr. Garzon. I agree with the History, Examination, Assessment and Plan documented above with any addition or exceptions noted below. D/C home today. patient declined HH agency. Off O2 this morning. He expressed understanding that he needs to go to HD in order for him to stay out of the [facility]. Given that this is his 14th hospitalization in 2020, I anticipate that he will likely bounce back soon.
[2020-09-08 08:26] VITALS: BP 138/74; TEMP 97.5
[2020-09-08] MEDS: Calcium Carbonate 500 MG ChewTAB PO SCH (08:32)
[2020-09-08] MEDS: Amlodipine 10 MG TAB PO SCH (08:32)
[2020-09-08] MEDS: hydrALAZINE 25 MG TAB PO SCH ×2 (08:32→14:11)
[2020-09-08] MEDS: Sevelamer Carbonate 800 MG TAB PO SCH ×3 (08:32→18:24)
[2020-09-08] MEDS: levETIRAcetam 500 MG TAB PO SCH (08:32)
[2020-09-08] MEDS: Cinacalcet HCl 30 MG TAB PO SCH (08:33)
[2020-09-08] MEDS: Apixaban 5 MG TAB PO SCH (08:40)
[2020-09-08] MEDS: Aspirin Chewable 81 MG TAB PO SCH (08:40)
--- NOTE | 2020-09-08 09:31 | PDOC.PALPN ---
Palliative Progress Note - Subjective Eating breakfast, denies complaints. 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 Deviation from normal: Wound left lower ext, chronic Psychiatric: A&O x 3 - Assessment (1) ESRD (end stage renal disease) on dialysis Code(s): N18.6 - END STAGE RENAL DISEASE; Z99.2 - DEPENDENCE ON RENAL DIALYSIS Current Visit: No Status: Acute (2) Normocytic anemia, not due to blood loss Code(s): D64.9 - ANEMIA, UNSPECIFIED Current Visit: No Status: Acute (3) Palliative care encounter Code(s): Z51.5 - ENCOUNTER FOR PALLIATIVE CARE Current Visit: No Status: Acute (4) Diabetes mellitus type 1 with complications Code(s): E10.8 - TYPE 1 DIABETES MELLITUS WITH UNSPECIFIED COMPLICATIONS Current Visit: No Status: Chronic (5) Diastolic CHF Code(s): I50.30 - UNSPECIFIED DIASTOLIC (CONGESTIVE) HEART FAILURE Current Visit: No Status: Chronic Qualifiers: - Plan Plan: Lengthy discussion in relation to impact of non compliance. States issue with compliance is part "just not wanting to go to dialysis" and chronic diarrhea. Suggested utilizing Home Health to not only care for chronic wound but to make suggestions in relation to chronic diarrhea and assist adjusting medications. States the diarrhea makes him "embarrassed", impacts dignity. Discussed Hospice, and if he ever decides to not pursue dialysis he can transition from home health to Hospice. He is hopeful for increase in motivation to be compliant with dialysis and care with Home Health. Emotional Support, therapeutic listening. [35] minutes spent on this encounter with >50% of the time in counseling and coordination of care. - ROS Constitutional: alert, weakness ENT: other (Denies throat irritation congestion) Respiratory: other (Deniec cough, shortness of breath) Cardiology: other (Denies chest pain, palpitations) Gastrointestinal: other (Denies diarrhea today, ) Musculoskeletal: other (Intermittant right phantom pain, worse with dialysis) Psychological: depression
[2020-09-08] MEDS: Insulin Glargine 20 UNITS in Pre-Filled Syringe 1 EACH SC SCH (09:34)
--- NOTE | 2020-09-08 11:25 | PRG ---
DATE OF SERVICE: 09/08/2020 SUBJECTIVE: This is a 39-year-old gentleman, being seen for end-stage renal disease. The patient denies any nausea, vomiting, or chest pain. The patient has bleeding from fistula. OBJECTIVE: GENERAL: The patient is awake and alert. VITAL SIGNS: Afebrile, pulse 75, breathing at 16, blood pressure 132/74. HEENT: Head normocephalic and atraumatic. Eyes intact, no ulcers. Nose intact, no ulcers. Ears intact, no ulcers. NECK: Supple. No JVD. CHEST: Symmetrical and clear. CARDIOVASCULAR: Shows S1 and S2, no rub, no murmur. GASTROINTESTINAL: Abdomen is soft, bowel sounds positive. EXTREMITIES: Show no edema or ulcers. SKIN: Shows no rash or petechiae. MUSCULOSKELETAL: Shows no joint swelling or stiffness. GENITOURINARY: Shows no Clifton or CVA tenderness. NEUROLOGIC: Motor intact. Cranial nerves intact. LABORATORY DATA: Hemoglobin 10.9. ASSESSMENT AND PLAN: 1. Stage 6 chronic kidney disease, plan dialysis per schedule. 2. Hypertension, stable. 3. Anemia, stable. Medication based on GFR appropriate. Job ID: [id number]
[2020-09-08 11:59] LABS: INR-International Normal Ratio 1.1; Prothrombin Time 14.7 sec (12.0-14.7)
[2020-09-08 12:00] LABS: PTT 42.7 sec (22.9-36.1)
[2020-09-08 15:50] VITALS: BMI 22.8
[2020-09-08] MEDS ORDERED: Lidocaine 1% (PF) 30 ML VIAL IJ SCH (17:15)
--- NOTE | 2020-09-09 09:54 | OP ---
DATE OF PROCEDURE: 09/08/2020 PREOPERATIVE DIAGNOSIS: End-stage renal disease, functioning fistula right upper arm with a cephalic vein fistula transposed 03/04/2020 from the subclavian vein to the axillary vein, bleeding from his fistula after dialysis. Patient has not had any problems of bleeding in the past. He is noncompliant, has missed several dialysis, he is admitted for hyperkalemia. Patient had a bandage over this right upper arm and has continued to ooze. I have been asked to see him. Evaluation of right upper arm fistula reveals that there is a small puncture wound oozing. That is very small. This should stop. Nurse indicates to me that an IJ central line catheter was removed and he had copious bleeding indicating high venous pressures. Patient is obviously fluid overloaded. He is noncompliant with dialysis. I would recommend continued pressure and I have placed 4 x 4s and a Coban. If this continues to ooze, then we will place a Surgicel over the puncture site, a suture could be placed. At this point, I will see him as needed. Call if necessary. Job ID: [id number]
--- NOTE | 2020-09-09 13:45 | DIS ---
DATE OF ADMISSION: 09/02/2020 DATE OF DISCHARGE: 09/08/2020 RESIDENT: Karlie Garzon MD, PGY1 ADMITTING ATTENDING: Dr. Mckinley. DISCHARGE ATTENDING: Doron Fisher MD CONSULTS: General Surgery, Case Management, PT, OT, Palliative Care, Wound Care, and nephrology. PROCEDURES: Right internal jugular central line placed on 09/02/2020. PRIMARY DIAGNOSIS: Metabolic acidosis, secondary to DKA due to missing dialysis. SECONDARY DIAGNOSES: 1. DKA. 2. Hyperphosphatemia. 3. Hypocalcemia. 4. Hyperkalemia. 5. Insulin-dependent diabetes mellitus 2. 6. History of CVA. 7. History of DVTs. 8. Substance abuse. 9. Seizure disorder. 10. Chronic diarrhea. 11. ESRD. DISCHARGE MEDICATIONS: 1. Tylenol 650 p.o. q.4 hours p.r.n. 2. Amlodipine 10 daily. 3. Eliquis 5 mg b.i.d. 4. Aspirin 81 mg daily. 5. Cinacalcet 60 mg daily. 6. Lomotil 2 tabs t.i.d. p.r.n. 7. Hydralazine 25 t.i.d. 8. Lantus 20 units daily. 9. Keppra 500 b.i.d. 10. Sertraline 25 daily. 11. Renvela 2400 t.i.d. DISCONTINUED MEDICATIONS: None. HISTORY OF PRESENT ILLNESS: The patient is a 39-year-old male, well known to our service with end-stage renal disease, on hemodialysis, and type 2 diabetes, who presented to the ED via EMS for altered mental status. He has a history of frequent hospitalizations due to missing dialysis. Upon presentation to the ER, he was found to be acidotic, hyperkalemic, and in DKA, so started on an insulin drip, given calcium bicarb and started on vancomycin and cefepime for empiric treatment. Dr. Hurd of Nephrology consulted and planned for urgent hemodialysis. Potassium was 7. EKG stable. No ST changes. He had a right IJ central line placed in the ED. Potassium was originally 8.2 on admission, improved with hemodialysis down to normal levels. BNP was 1990.9 on admission. Phosphorus 13.5. BUN and creatinine 123/13.39, glucose 380. During hospital stay, Case Management worked with the patient to try to arrange home health care in attempts to help with medication and dialysis adherence. His last home health agency had decided to stop services due to his history of noncompliance. The patient then stated he refused home health care and would like to go home. Palliative Care also talked to the patient and the patient's mother to discuss goals of care and possible hospice placement. Attempted to set up to have a family meeting, but this is not able to be done at this time. In the past, they have denied hospice services, but it is important to talk to them in the future. Of note, the day before he was discharged, he had dialysis and had some bleeding from his fistula site. Dr. Yanez was called and came and saw the patient and placed sutures in two locations. He was hemostatic before discharge. DISPOSITION: He is stable. DISCHARGE INSTRUCTIONS: LOCATION: Home. DIET: Renal diet. ACTIVITY: As tolerated. FOLLOWUP: Follow up with PCP and for outpatient dialysis. Job ID: [id number] MTDAngelia
--- NOTE | 2020-09-12 13:11 | EKG ---
Test Reason : Blood Pressure : / mmHG Vent. Rate : 069 BPM Atrial Rate : 074 BPM P-R Int : 000 ms QRS Dur : 124 ms QT Int : 462 ms P-R-T Axes : 000 -61 058 degrees QTc Int : 495 ms Sinus rhythm with 1st degree AV block Left axis deviation Left bundle branch block Abnormal ECG Confirmed by JAMEE SAMUEL ([id number]), commercial production editor ABRIL VAZQUEZ ([id number]) on 09/12/2020 1:11:43 PM Referred By: Confirmed By:JAMEE SAMUEL
== END 2020-09-08 19:20 | disposition home or self-care (01) | DRG 637 ==
LOC: ERS 05:57 → ERHOLD 08:48 → IMCU/EMU 19:00 → ONC 09-06 10:33
PROVIDERS: ADMIT Student in an Organized Health Care Education/Training Program; ATTEND Student in an Organized Health Care Education/Training Program
PROC: 5A1D70Z Performance of Urinary Filtration, Intermittent, Less than 6 Hours Per Day (ICD-10-PCS; principal; 2020-09-02)
PROC: 2W4 Placement, Anatomical Regions, Packing (ICD-10-PCS; 2020-09-02)
DX: E10.10 Type 1 diabetes mellitus with ketoacidosis without coma (principal); N18.6 End stage renal disease; E87.1 Hypo-osmolality and hyponatremia; I50.32 Chronic diastolic (congestive) heart failure; I13.2 Hypertensive heart and chronic kidney disease with heart failure and with stage 5 chronic kidney disease, or end stage renal disease; T82.838A Hemorrhage due to vascular prosthetic devices, implants and grafts, initial encounter; E87.5 Hyperkalemia; Z20.828 Contact with and (suspected) exposure to other viral communicable diseases; G40.909 Epilepsy, unspecified, not intractable, without status epilepticus; K52.9 Noninfective gastroenteritis and colitis, unspecified; F41.9 Anxiety disorder, unspecified; F32.9 Major depressive disorder, single episode, unspecified; F17.210 Nicotine dependence, cigarettes, uncomplicated; F12.10 Cannabis abuse, uncomplicated; E10.22 Type 1 diabetes mellitus with diabetic chronic kidney disease; E83.39 Other disorders of phosphorus metabolism; E87.70 Fluid overload, unspecified; E88.09 Other disorders of plasma-protein metabolism, not elsewhere classified; D63.1 Anemia in chronic kidney disease; Y83.8 Other surgical procedures as the cause of abnormal reaction of the patient, or of later complication, without mention of misadventure at the time of the procedure; Z86.718 Personal history of other venous thrombosis and embolism; Z99.2 Dependence on renal dialysis; Z88.0 Allergy status to penicillin; Z79.4 Long term (current) use of insulin; Z79.01 Long term (current) use of anticoagulants; Z79.82 Long term (current) use of aspirin; Z79.899 Other long term (current) drug therapy; Z86.73 Personal history of transient ischemic attack (TIA), and cerebral infarction without residual deficits; Z89.512 Acquired absence of left leg below knee; Z91.14 Patient's other noncompliance with medication regimen; Z91.15 Patient's noncompliance with renal dialysis
CPT/HCPCS: 36415; 36416; 36556; 71045; 80048; 80053; 82330; 82803; 83605; 83735; 83880; 84100; 84484; 85025; 85610; 85730; 87040; 87635; 90935; 93005; 96365; 96366; 96368; 96375; G0257; J0692; J1610; J1815; J2001; J2405; J3370; J3480; J3490; J7070; U0003

== ENCOUNTER 2020-09-15 07:43 | Inpatient (IN) | payer MEDICARE, MEDICAID ==
[2020-09-15] MEDS ORDERED: Calcium Chloride 1 GM/10 ML Abboject SYRINGE ONE ×2 (08:02→11:17)
--- NOTE | 2020-09-15 08:33 | RAD ---
EXAM: Single view of the chest HISTORY: Altered mental status. The patient has missed hemodialysis twice COMPARISON: 09/02/2020 FINDINGS: Single view of the chest shows an enlarged but stable cardiomediastinal silhouette. There is a large right pleural effusion with adjacent atelectasis versus infiltrate. There is no evidence of consolidation, mass, or pleural effusion. Stents are seen in both upper extremities. IMPRESSION: Large right pleural effusion with adjacent atelectasis versus infiltrate
[2020-09-15 10:46] LABS: Hemoglobin 10.6 g/dL (14.0-18.0); Mean Corpuscular HGB CONC 29.2 g/dL (32.0-36.0); Mean Corpuscular Hemoglobin 28.4 pg (27.0-31.0); Mean Corpuscular Volume 97.5 fL (78.0-98.0); Mean Platelet Volume 11.1 fL (7.4-10.4); Platelet Count 213 thou/uL (130-400); RBC Distribution Width 16.9 % (11.5-14.5); Red Blood Cell (RBC) Count 3.74 mill/uL (4.70-6.10); White Blood Cell (WBC) Count 9.9 thou/uL (4.8-10.8)
--- NOTE | 2020-09-15 10:54 | PDOC.FPRHP ---
- History of Present Illness Chief Complaint: missed dialysis History of Present Illness: Pt is a 39 yo male with hx of ESRD on HD and IDDM, who is well known to our service, presents with SOB and AMS after missing dialysis. He has a history of chronic diarrhea and this causes him to miss dialysis. Unclear how many days he has missed. He states he was having a hard time breathing so he called EMS. Upon arrival he was found to have blood sugar >900, K 7.4, AG not measurable due to extremely low bicarb. Given calcium chloride, sodium bicarb, IVF, and insulin. Nephrology was consulted from the ED and planned for emergent dialysis. He was recently discharged from our hospital on 09/08/20, having been admitted for the same complaint. ED Course: L femoral central line meds as above - Allergies/Adverse Reactions Allergies Allergy/AdvReac Type Severity Reaction Status Date / Time Penicillins Allergy Unknown Verified 09/15/20 15:54 - Home Medications Medication Instructions Recorded Confirmed Type Acetaminophen [Tylenol Regular 650 mg PO Q4HR PRN 07/12/20 09/15/20 History Strength] Acetaminophen [Tylenol Regular 650 mg PO Q4H PRN tab 09/03/20 09/15/20 Rx Strength] Amlodipine [Norvasc] 10 mg PO DAILY 30 Days #30 tab 09/03/20 09/15/20 Rx Apixaban [Eliquis] 5 mg PO BID 30 Days #60 tab 09/03/20 09/15/20 Rx Aspirin [Ecotrin Low Strength] 81 mg PO DAILY 30 Days #30 tab 09/03/20 09/15/20 Rx Cinacalcet HCl [Sensipar] 60 mg PO DAILY 30 Days #60 tab 09/03/20 09/15/20 Rx Diphenoxylate HCl/Atropine 2 tab PO TID PRN 15 Days #90 tab 09/03/20 09/15/20 Rx [Lomotil] Glucagon 1 mg IM PRN PRN #5 vial 09/03/20 09/15/20 Rx HumaLOG [HumaLOG Vial] 2 units SC TID-WM 30 Days #1 vial 09/03/20 09/15/20 Rx HumaLOG [HumaLOG Vial] 3 units SC TID-WM 30 Days #1 vial 09/03/20 09/15/20 Rx Insulin Glargine [Lantus] 20 units SC QAM 30 Days #2 vial 09/03/20 09/15/20 Rx Sertraline HCl 50 mg PO BID 30 Days #120 tablet 09/03/20 09/15/20 Rx Sevelamer Carbonate [Renvela] 2,400 mg PO TID-WM 30 Days #360 tab 09/03/20 09/15/20 Rx hydrALAZINE [Apresoline] 25 mg PO TID 30 Days #90 tab 09/03/20 09/15/20 Rx levETIRAcetam [Keppra] 500 mg PO BID 30 Days #60 tab 09/03/20 09/15/20 Rx - History PMHx: DMI, HTN, ESRD on HD, sz disorder, anxiety/depression, CVAx2 PSHx: Fistula R arm, L BKA FHx: non-contributory Social: tobacco-smokes 1/2 ppd, smokes marijuana 3-4x/wk - last used a week ago, hx PCP use - Review of Systems General: denies: fever/chills Eyes: denies: eye pain, vision changes ENT: denies: nasal congestion Respiratory: reports: shortness of breath. denies: cough Cardiovascular: denies: chest pain, palpitation Gastrointestinal: reports: diarrhea. denies: nausea, vomiting Genitourinary: denies: dysuria, polyuria Skin: reports: lesions. denies: rashes Musculoskeletal: denies: pain, tenderness Neurological: reports: weakness. denies: numbness - Vital signs BP: 95/46, Pulse: 76, Resp: 12, Pain: 0, O2 sat: 96 on (Room Air), - Physical Exam -Constitutional: somnolent, will answer questions appropriately -HEENT: sclera injected, purulent exudate with crusting around eyelids, oral mucosa very dry Neck: supple Chest: no-tender to palpation Heart: RRR, normal S1/S2, no murmurs/rubs/gallops Lungs: CTAB, no wheezing -Lungs: poor air movement Abdomen: soft -Abdomen: tender to palpation of midepigatric region -Musculoskeletal: R BKA Neurological: no focal deficit -Neurological: A&O to person and place -Skin: L LE: dry, flaking skin, multiple chronic ulcerations, one was covered with gauze -Psychiatric: poor judgement and insight FMR H&P: Results - Labs Result Diagrams: 09/15/20 10:18 09/15/20 18:40 Lab results: WBC 9.9 thou/uL (4.8-10.8) 09/15/20 10:18 Hgb 10.6 g/dL (14.0-18.0) L 09/15/20 10:18 Hct 36.4 % (42.0-52.0) L 09/15/20 10:18 MCV 97.5 fL (78.0-98.0) 09/15/20 10:18 Plt Count 213 thou/uL (130-400) 09/15/20 10:18 - EKG Interpretation EKG: reviewed, sinus rhythm, no ST changes - Radiology Interpretation Chest x-ray Status: image reviewed by me, report reviewed by me FMR H&P: A/P - Plan 39yo male w/ hx IDDM, ESRD on HD who presents w/ hyperkalemia and AG metab acidosis after missing dialysis #AG metabolic acidosis 2/2 DKA -pH 6.9, AG 28, B-hydroxybutyrate 10 -ED: sodium bicarb, insulin and IVF given -Started on DKA protocol, continue with q2hour BMP, monitor for closure of AG -Likely 2/2 to non compliance -NPO until AG closes #Hyperkalemia 2/2 missed HD -K 7.4, ekg: no ST changes -given calcium chloride in ED, started on insulin gtt -nephrology consulted: plan for urgent dialysis #elevated lipase -lipase 144, higher than previous admissions -AST/ALT, Tbili: WNL -currently on IVF and NPO for DKA protocol -will recheck #allergic conjunctivitis -anti-histamine eye drops ordered #IDDM2 -See above #ESRD on HD -see above #Hx of CVA -Stable, aware #Hx of DVTs -continue home eliquis #Substance abuse -encourage cessation #Seizure disorder -Continue home meds -Seizure precautions #Chronic diarrhea -Stable -continue home meds Code: Full PCP: LBuse/Tamp dvt ppx: eliquis Lines: L femoral Diet: NPO Dispo:admit: IMCU/inpt, pending emergent dialysis, DKA protocol, LOS >48hrs FMR H&P: Upper Level - Pertinent history 39YO AAM with a PMH notable for ESRD on HD (MWF), T1DM, HTN, and recurrent DVT who presents to ED after missing dialysis. Of note, patient is well known to o ur service as he is routinely admitted q1-3 weeks for HD noncompliance. Patient was oriented only to person and place at time of exam so history was limited. Reports missed HD due to diarrhea but could not recall the last time he went. States his mom called the ambulance to bring him to the ED for evaluation. Cannot recall the last time he took his home insulin. Denied any abdominal pain, SOB, chest pain, N/V or fever/chills on exam. See pharmacy intern note for pertinent history. - Pertinent findings PE: VITALS: HR: 67, BP: 93/42, O2 sat: 97% on RA, RR: 19, Temp: 97.5F Gen: NAD, resting laying HEENT: B/L periorbital edema with purulent d/c & conjunctival injection noted Heart: RRR, no murmur, cap refill <2 secs Lungs: auscultated anteriorly, clear breath sounds, exam limited Abd: mild TTP in epigastrium with no guarding or rebound. NL bowel sounds. Ext: RUE IO & L femoral central line in place. s/p RLE AKA & LLE w/ multiple wounds in various stages of healing noted, one with purulent discharge. - Plan Date/Time: 09/15/20 1054 IVivienne, have evaluated this patient and agree with findings/plan as outlined by pharmacy intern resident. Pertinent changes/additions are listed here. Severe AG acidosis 2/2 DKA: -BG 986 with albumin corrected AG of 29.9 & serum ketones of 10 on presentation. He was given 2 amps of bicarb, 10U of SQ insulin before being started on an insulin drip and 2L NS in ED. Plan to admit to IMCU and follow DKA protocol until AG closes. NPO while on protocol w/ Q2HR BMPs for now to ensure BG levels are not dropping too rapidly. Hyperkalemia 2/2 missed HD. - K 7.4 on presentation. s/p 100mEq CaCl x2 in ED. Nephro, Dr. Yanez, consulted & patient to undergo urgent HD today. - Will continue to trend KCl levels with BMPs per DKA protocol as well. Bacterial conjunctivitis: - B/L periorbital edema with purulent discharge & conjunctival injection noted on exam. Will start on Erythromycin drops. Elevated lipase: - lipase elevated at 144 on presentation with epigastric pain on exam. However, afebrile without an elevated WBC count. Will repeat level in AM. Anemia of Chronic Disease: -H/H at baseline. Continue home meds. Chronic Diarrhea: -Has been thoroughly worked up outpatient, has hx of C. Diff Ag positive but has never toxin positive. Last admission screen toxin and Ag negative -continue home Lomotil DVT PPx: home eliquis GI PPx: none Code Status: Full Attending: Maximus PCP: SANDY Hardwick Dispo: Admit to [facility] on insulin drip for DKA & plans for urgent HD for hyperK. Anticipated LOS at least 2 midnights pending clinical course. Addendum - Attending - Attending Attestation Date/Time: 09/15/20 9694 I personally evaluated the patient and discussed the management with Dr. Garzon. I agree with the History, Examination, Assessment and Plan documented above with any addition or exceptions noted below. The patient presents again with DKA and altered mental status after missing an unknown number of dialysis sessions. He has had numerous admissions for the same thing. Pt is admitting to the [facility]. Will follow DKA protocol. Nephrology will be consulted for emergent dialysis. Trend lab values. Inside Barrel Polisher on importance of compliance with dialysis.
[2020-09-15 10:59] LABS: ALT (SGPT) 14 U/L (8-55); AST (SGOT) 10 U/L (5-34); Albumin 3.3 g/dL (3.5-5.0); Alkaline Phosphatase 153 U/L (40-110); BUN (Urea Nitrogen) 88 mg/dL (8.9-20.6); Bilirubin, Total 0.3 mg/dL (0.2-1.2); CK (CPK) 105 U/L (30-200); Calc. Creatinine Clearance 0 mL/min (70-130); Calcium 7.6 mg/dL (7.8-10.44); Carbon Dioxide Less than 8 mmol/L (22-29); Chloride 92 mmol/L (98-107); Estimated GFR-MDRD 5; Globulin 3.4 g/dL (2.4-3.5); Glucose 986 mg/dL (70-105); Lipase 144 U/L (8-78); Potassium 7.4 mmol/L (3.5-5.1); Protein, Total 6.7 g/dL (6.0-8.3); Sodium 128 mmol/L (136-145)
[2020-09-15 11:12] LABS: Hypochromia SLIGHT = 6-15 cells (100X) (0-5/hpf); Lymphocytes 11 % (21-51); MDiff Complete? YES; Monocytes 11 % (0-10); Neutrophil 78 % (42-75); Platelet Morphology Comment Appears Adequate; Poikilocytosis SLIGHT = 6-15 cells (100X) (0-5/hpf)
[2020-09-15] MEDS ORDERED: Insulin Regular 300 UNITS/3 ML VIAL ONE (11:17)
[2020-09-15] MEDS ORDERED: Sodium Bicarb 50 MEQ/50 ML Abboject 8.4% SYRINGE ONE ×2 (11:17→11:27)
[2020-09-15 11:24] LABS: CKMB 6.6 ng/mL (0-6.6)
[2020-09-15] MEDS ORDERED: INSULIN REGULAR IN 0.9 % NACL 100 UNIT/100 ML BAG ONE (11:29)
[2020-09-15 11:42] LABS: Base Excess-Venous -23.9 mmol/L (-2.0 to 3.0); Bicarbonate (HCO3v) 7.8 mmol/L (22.0-28.0); CO2 Tension (PvCO2) 37.1 mmHg (40.0-50.0); Calcium, Ionized 0.97 mmol/L (1.15-1.33); Chloride 102 mmol/L (98-107); Hemoglobin - Calc 12.2 g/dL (14.0-18.0); Potassium 7.2 mmol/L (3.5-5.1); Sodium 121 mmol/L (138-145); vO2 Saturation-calc 78.5 % (60.0-85.0)
[2020-09-15] MEDS ORDERED: NS 0.9% w/ 20 MEQ KCL 1,000 ML IV PRN ×2 (12:13)
[2020-09-15] MEDS ORDERED: D5 1/2 NS w/20 mEq KCL 1,000 ML IV PRN (12:13)
[2020-09-15] MEDS ORDERED: Electrolyte Replacement Protoc 1 EACH EACH IVPB ONE (12:13)
[2020-09-15] MEDS ORDERED: Acetaminophen 325 MG TAB PO PRN (12:13)
[2020-09-15] MEDS ORDERED: Sodium Chloride 0.9% 1,000 ML IV PRN ×4 (12:13)
[2020-09-15] MEDS ORDERED: Dextrose 5 %-0.45 % NaCl 1,000 ML IV PRN (12:13)
[2020-09-15] MEDS ORDERED: HUMULIN R 100 UNITS in Sodium Chloride 0.9% 100 ML IVPB SCH (12:15)
[2020-09-15] MEDS ORDERED: Calcium Carbonate 500 MG ChewTAB PO PRN (12:25)
[2020-09-15] MEDS ORDERED: Diphenoxylate HCl/Atropine Tablet PO PRN (12:40)
[2020-09-15 13:22] LABS: Troponin I 0.096 ng/mL (< 0.028)
[2020-09-15 13:23] LABS: BUN (Urea Nitrogen) 85 mg/dL (8.9-20.6); Calc. Creatinine Clearance 0 mL/min (70-130); Calcium 7.8 mg/dL (7.8-10.44); Chloride 94 mmol/L (98-107); Estimated GFR-MDRD 6; Magnesium 2.8 mg/dL (1.6-2.6); Potassium 6.2 mmol/L (3.5-5.1); Sodium 131 mmol/L (136-145)
[2020-09-15 13:45] LABS: Carbon Dioxide Less than 8 mmol/L (22-29); Glucose 916 mg/dL (70-105)
[2020-09-15 13:46] LABS: Phosphorus 9.4 mg/dL (2.3-4.7)
[2020-09-15 14:35] LABS: Anion Gap 34 mmol/L (10-20); BUN (Urea Nitrogen) 88 mg/dL (8.9-20.6); Calc. Creatinine Clearance 0 mL/min (70-130); Calcium 7.7 mg/dL (7.8-10.44); Chloride 94 mmol/L (98-107); Estimated GFR-MDRD 6; Potassium 5.6 mmol/L (3.5-5.1); Sodium 131 mmol/L (136-145)
[2020-09-15 14:50] LABS: Carbon Dioxide 9 mmol/L (22-29); Glucose 900 mg/dL (70-105)
[2020-09-15 15:30] LABS: SARS-CoV-2 NAA Rapid Test Not Detected (NotDetected)
[2020-09-15] MEDS: hydrALAZINE 25 MG TAB PO SCH ×2 (16:28→21:22)
[2020-09-15] MEDS: Sevelamer Carbonate 800 MG TAB PO SCH (16:29)
[2020-09-15 17:03] LABS: Anion Gap 31 mmol/L (10-20); BUN (Urea Nitrogen) 87 mg/dL (8.9-20.6); Calc. Creatinine Clearance 0 mL/min (70-130); Calcium 7.6 mg/dL (7.8-10.44); Chloride 97 mmol/L (98-107); Estimated GFR-MDRD 6; Potassium 5.2 mmol/L (3.5-5.1); Sodium 132 mmol/L (136-145)
[2020-09-15 17:09] LABS: Troponin I 0.164 ng/mL (< 0.028)
[2020-09-15 17:11] VITALS: BMI 20.9
[2020-09-15 17:36] LABS: Carbon Dioxide 9 mmol/L (22-29); Glucose 881 mg/dL (70-105)
[2020-09-15 19:17] LABS: Anion Gap 22 mmol/L (10-20); BUN (Urea Nitrogen) 47 mg/dL (8.9-20.6); Calc. Creatinine Clearance 13 mL/min (70-130); Calcium 7.5 mg/dL (7.8-10.44); Carbon Dioxide 20 mmol/L (22-29); Chloride 97 mmol/L (98-107); Estimated GFR-MDRD 10; Potassium 3.4 mmol/L (3.5-5.1); Sodium 136 mmol/L (136-145)
[2020-09-15 19:27] LABS: Glucose 564 mg/dL (70-105)
[2020-09-15 20:52] LABS: Anion Gap 17 mmol/L (10-20); BUN (Urea Nitrogen) 32 mg/dL (8.9-20.6); Calc. Creatinine Clearance 18 mL/min (70-130); Calcium 7.6 mg/dL (7.8-10.44); Carbon Dioxide 24 mmol/L (22-29); Chloride 100 mmol/L (98-107); Estimated GFR-MDRD 15; Glucose 374 mg/dL (70-105); Sodium 138 mmol/L (136-145)
[2020-09-15 20:58] LABS: Potassium 2.9 mmol/L (3.5-5.1)
[2020-09-15] MEDS: Apixaban 5 MG TAB PO SCH (21:16)
[2020-09-15] MEDS: levETIRAcetam 500 MG TAB PO SCH (21:17)
[2020-09-15] MEDS: Ketotifen Fumarate 0.025% Ophth Soln 5 ml Bottle L EYE SCH (21:18)
[2020-09-15] MEDS: Ketotifen Fumarate 0.025% Ophth Soln 5 ml Bottle R EYE SCH (21:18)
--- NOTE | 2020-09-15 22:51 | CON ---
DATE OF CONSULTATION: CONSULTING PHYSICIAN: Beau Palmer MD REQUESTING PHYSICIANS: Dr. Garzon and the emergency room doctor, Aaron. REASON FOR CONSULTATION: Severe hyperkalemia with severe metabolic acidosis in the context of end-stage renal disease and diabetic ketoacidosis. IMPRESSION: 1. End-stage renal disease, severely noncompliant. 2. Severe hyperkalemia in the context of poor dialysis compliance and diabetic ketoacidosis. 3. Metabolic acidosis, combination of end-stage renal disease and diabetic ketoacidosis. PLAN: 1. Medical management of the hyperkalemia in addition to emergent hemodialysis. 2. DKA management per the primary team. 3. Counseling on compliance. 4. Further management to be dependent on the clinical course. HISTORY OF PRESENT ILLNESS: History is that of a 39-year-old gentleman with end-stage renal disease, insulin-dependent diabetes, medical noncompliance, who has missed his two previous dialysis sessions, ended up in the emergency room with potassium of and blood sugar above 900, severely metabolically acidotic. As a result of these findings, decision has been taken to involve Renal in the management of this case. PAST MEDICAL HISTORY: Significant for diabetes mellitus, hypertension, reflux disease, end-stage renal disease on dialysis, seizure disorder, anxiety, depression, and cerebrovascular accident x2. FAMILY HISTORY: Nonsignificantly related to present illness. SOCIAL HISTORY: Significant for tobacco and marijuana. REVIEW OF SYSTEMS: As documented in the body of the history. All other systems found not to be significant. PHYSICAL EXAMINATION: VITAL SIGNS: The patient noted with the following vital signs. Blood pressure , pulse 72, respiratory rate of 17, and O2 saturations are 95%. HEENT: Unremarkable. CARDIOVASCULAR SYSTEM: First and second heart sounds were heard. RESPIRATORY SYSTEM: Clear to auscultation. DIGESTIVE SYSTEM: Revealed a benign abdomen. EXTREMITIES: No peripheral edema. SKIN: No new gross rash. LYMPHATICS: No peripheral lymphadenopathy. SUMMARY: A 39-year-old medically noncompliant with dialysis. The patient presented here with severe metabolic acidosis and hyperkalemia in the context of dialysis noncompliance and diabetic ketoacidosis. Job ID: [id number]
[2020-09-16 02:54] LABS: Anion Gap 22 mmol/L (10-20); BUN (Urea Nitrogen) 54 mg/dL (8.9-20.6); Calc. Creatinine Clearance 11 mL/min (70-130); Calcium 7.6 mg/dL (7.8-10.44); Carbon Dioxide 20 mmol/L (22-29); Chloride 101 mmol/L (98-107); Estimated GFR-MDRD 8; Glucose 342 mg/dL (70-105); Potassium 3.7 mmol/L (3.5-5.1); Sodium 139 mmol/L (136-145)
[2020-09-16 04:40] LABS: Anion Gap 20 mmol/L (10-20); BUN (Urea Nitrogen) 54 mg/dL (8.9-20.6); Calc. Creatinine Clearance 11 mL/min (70-130); Calcium 7.5 mg/dL (7.8-10.44); Carbon Dioxide 19 mmol/L (22-29); Chloride 102 mmol/L (98-107); Estimated GFR-MDRD 8; Glucose 243 mg/dL (70-105); Lipase 512 U/L (8-78); Potassium 3.8 mmol/L (3.5-5.1); Sodium 137 mmol/L (136-145)
[2020-09-16 05:08] LABS: #Monocytes 1.3 thou/uL (0.11-0.59); #Neutrophils 7.8 thou/uL (1.40-6.50); %Basophils 0.1 % (0.0-1.0); %Eosinophils 0.2 % (0.0-10.0); %Lymphocytes 9.7 % (21.0-51.0); %Monocytes 12.8 % (0.0-10.0); %Neutrophils 77.2 % (42.0-75.0); Mean Corpuscular HGB CONC 30.9 g/dL (32.0-36.0); Mean Corpuscular Hemoglobin 27.7 pg (27.0-31.0); Mean Corpuscular Volume 89.8 fL (78.0-98.0); Mean Platelet Volume 11.4 fL (7.4-10.4); Platelet Count 179 thou/uL (130-400); Red Blood Cell (RBC) Count 4.32 mill/uL (4.70-6.10); White Blood Cell (WBC) Count 10.1 thou/uL (4.8-10.8)
--- NOTE | 2020-09-16 05:21 | PDOC.FM ---
- Subjective Subjective: Patient was sleeping in bed and did not want to be bothered. He was able to tell me that he is feeling much better. He denied all pain including chest and abdominal pain. Per nursing, he was requesting to eat. The patient was still on the insulin drip but fluids were stopped due to the request of Dr. Yanez in the setting of the patient's ESRD. He underwent dialysis last night. - Objective MAR Reviewed: Yes Vital Signs & Weight: Vital Signs (12 hours) Temp Pulse Ox 09/16/20 03:52 97.4 F L 09/15/20 20:00 97 09/15/20 19:20 97.8 F Weight Weight 68.039 kg Most Recent Monitor Data Heart Rate from ECG 84 NIBP 102/63 NIBP BP-Mean 76 Respiration from ECG 0 SpO2 96 I&O: 09/14/20 09/15/20 09/16/20 06:59 06:59 06:59 Intake Total 944 Balance 944 Result Diagrams: 09/16/20 03:34 09/16/20 09:45 Phys Exam - Physical Examination Constitutional: NAD HEENT: moist MMs Neck: supple, full ROM Respiratory: no wheezing, no rales, no rhonchi, clear to auscultation bilateral Cardiovascular: RRR, no significant murmur Gastrointestinal: soft, non-tender, no distention, positive bowel sounds Musculoskeletal: no edema Neurological: non-focal Deviation from normal: dry flaking skin, chronic ulceration Dx/Plan - Plan Plan: 39yo male w/ hx IDDM, ESRD on HD who presents w/ hyperkalemia and AG metab acidosis after missing dialysis #AG metabolic acidosis 2/2 DKA, improving -on admission: pH 6.9, AG 28, B-hydroxybutyrate 10 -ED: s/p sodium bicarb, insulin and IVF given -likely 2/2 to noncompliance -s/p DKA protocol -AG of 16 this morning -fluids were stopped after dialysis last night at the request of Dr. Yanez due to patient's ESRD -insulin drip stopped around 0900 on 09/16; started on home insulin and given renal/diabetic diet -Q2Hr glucose checks x2 followed by ACHS glucose checks #Hyperkalemia 2/2 missed HD, resolved -K 7.4, ekg: no ST changes -s/p calcium chloride in ED and insulin gtt -nephrology consulted: urgent dialysis last night -K: 3.8 this am #ESRD on HD -noncompliant -Dr. Yanez consulted, appreciate recs * urgent dialysis last night * dialysis prior to DC tomorrow #elevated lipase -lipase 144 > 512 -AST/ALT, Tbili: WNL -no abdominal tenderness on exam this morning -will obtain Abdominal US and continue to monitor #allergic conjunctivitis -anti-histamine eye drops ordered #IDDM2 -See above #Hx of CVA -Stable, aware #Hx of DVTs -continue home eliquis #Substance abuse -encourage cessation #Seizure disorder -Continue home meds -Seizure precautions #Chronic diarrhea -Stable -continue home meds Dispo: will transfer patient to medical for continued medical management; pt to undergo dialysis tomorrow with likely DC after Addendum - Attending - Attending Attestation Date/Time: 09/16/20 7904 I personally evaluated the patient and discussed the management with Dr. Fisher. I agree with the History, Examination, Assessment and Plan documented above with any addition or exceptions noted below. The patient is resting this morning. Dr. Yanez did dialysis yesterday. Patient's lipase is elevated today, however he has no abdominal pain or tenderness on exam today. will give patient a diet and restart home insulin. Getting abdominal ultrasound to further evaluate. Plan for dialysis tomorrow and then likely d/c if pt continues to improve. Counseled on importance of compliance with treatment regimen.
[2020-09-16] MEDS: levETIRAcetam 500 MG TAB PO SCH ×2 (08:13→21:30)
[2020-09-16] MEDS: Aspirin 81 mg Enteric Coated Tablet PO SCH (08:13)
[2020-09-16] MEDS: Apixaban 5 MG TAB PO SCH ×2 (08:13→21:30)
[2020-09-16] MEDS: Cinacalcet HCl 30 MG TAB PO SCH (08:13)
[2020-09-16] MEDS: Sevelamer Carbonate 800 MG TAB PO SCH ×3 (08:13→17:44)
[2020-09-16] MEDS: hydrALAZINE 25 MG TAB PO SCH ×3 (08:13→20:45)
[2020-09-16] MEDS: Amlodipine 10 MG TAB PO SCH (08:13)
[2020-09-16] MEDS: Ketotifen Fumarate 0.025% Ophth Soln 5 ml Bottle L EYE SCH ×2 (08:14→21:30)
[2020-09-16] MEDS: Ketotifen Fumarate 0.025% Ophth Soln 5 ml Bottle R EYE SCH ×2 (08:14→21:31)
[2020-09-16] MEDS ORDERED: Dextrose 50% Abboject 50 ML SYRINGE SLOW IVP PRN (09:04)
[2020-09-16] MEDS ORDERED: Dextrose 5% in Water 1,000 ML IV PRN (09:04)
[2020-09-16 09:48] LABS: ALT (SGPT) 14 U/L (8-55); AST (SGOT) 23 U/L (5-34); Alkaline Phosphatase 120 U/L (40-110); Anion Gap 21 mmol/L (10-20); BUN (Urea Nitrogen) 60 mg/dL (8.9-20.6); Bilirubin, Total 0.4 mg/dL (0.2-1.2); Calc. Creatinine Clearance 11 mL/min (70-130); Calcium 7.7 mg/dL (7.8-10.44); Carbon Dioxide 17 mmol/L (22-29); Chloride 106 mmol/L (98-107); Estimated GFR-MDRD 8; Globulin 3.4 g/dL (2.4-3.5); Glucose 81 mg/dL (70-105); Potassium 5.4 mmol/L (3.5-5.1); Protein, Total 6.4 g/dL (6.0-8.3); Sodium 139 mmol/L (136-145)
[2020-09-16] MEDS ORDERED: Insulin Glargine 20 UNITS in Pre-Filled Syringe 1 EACH SC SCH (10:00)
[2020-09-16 10:34] LABS: Anion Gap 18 mmol/L (10-20); BUN (Urea Nitrogen) 55 mg/dL (8.9-20.6); Calc. Creatinine Clearance 11 mL/min (70-130); Calcium 7.4 mg/dL (7.8-10.44); Carbon Dioxide 23 mmol/L (22-29); Chloride 102 mmol/L (98-107); Estimated GFR-MDRD 8; Glucose 82 mg/dL (70-105); Potassium 4.1 mmol/L (3.5-5.1); Sodium 139 mmol/L (136-145)
[2020-09-16] MEDS ORDERED: HumaLOG 300 UNITS/3 ML VIAL SC SCH (12:00)
[2020-09-16] MEDS: HumaLOG 300 UNITS/3 ML VIAL SC SCH ×2 (12:05→17:44)
--- NOTE | 2020-09-16 12:08 | ULT ---
ULTRASOUND ABDOMEN COMPLETE: DATE: 09/16/2020 HISTORY: 39-year-old male with elevated lipase. TECHNIQUE: Grayscale ultrasound evaluation of the liver, gallbladder, spleen, pancreas, common duct, kidneys, ab dominal aorta, and inferior vena cava (IVC). FINDINGS: Abdominal aorta: No aneurysm. Pancreas: Nonspecific sonographic appearance of body and portion of head. Tail obscured by shadowing from bowel gas. Liver: Normal echogenicity. Mild intrahepatic biliary ductal dilation Common duct: 7 mm. Gallbladder: Lumen is not excessively distended. Wall thickness 3 mm, upper limits of normal. No xochitl cholecystic fluid. No gallstones or sludge identified. Bilateral kidneys: Abnormally diffusely moderately hyperechoic parenchyma. Large number of small bila teral renal cysts, with the largest 1's up to 1.4 cm. No hydronephrosis. Spleen: No splenomegaly. Large right pleural effusion IMPRESSION: 1) mild dilation of intrahepatic and extrahepatic biliary tree. 2) large right pleural effusion. 3) evidence for end-stage renal disease. 4) no cholelithiasis identified.
--- NOTE | 2020-09-16 18:18 | PRG ---
DATE OF SERVICE: 09/16/2020 OBJECTIVE: VITAL SIGNS: The patient was seen, noted with the following vital signs. Afebrile, temperature 97.8, blood pressure 94/51 with pulse of 84. HEENT: Unremarkable. CARDIOVASCULAR SYSTEM: First and second heart sounds were heard. RESPIRATORY SYSTEM: Clear to auscultation. DIGESTIVE SYSTEM: Revealed a benign abdomen. Positive bowel sounds. EXTREMITIES: No peripheral edema. SKIN: No new gross rash. LYMPHATICS: No peripheral lymphadenopathy. IMPRESSION: 1. End-stage renal disease with severe medical noncompliance. 2. Diabetes mellitus with diabetic ketoacidosis. 3. Severe metabolic acidosis, resolved. 4. Hyperkalemia, resolved. PLAN: 1. The patient to be dialyzed tomorrow prior to discharge. 2. There is no emergent indication at this point for renal replacement therapy. 3. Counseling in terms of medical compliance. Job ID: [id number]
[2020-09-16] MEDS: Ondansetron PF 4 MG/2 ML Vial IVP PRN (20:05)
[2020-09-17 04:09] LABS: Hemoglobin 10.7 g/dL (14.0-18.0); Platelet Count 168 thou/uL (130-400)
[2020-09-17 04:31] LABS: ALT (SGPT) 11 U/L (8-55); AST (SGOT) 17 U/L (5-34); Alkaline Phosphatase 116 U/L (40-110); Anion Gap 19 mmol/L (10-20); BUN (Urea Nitrogen) 59 mg/dL (8.9-20.6); Bilirubin, Total 0.4 mg/dL (0.2-1.2); Calc. Creatinine Clearance 10 mL/min (70-130); Calcium 6.9 mg/dL (7.8-10.44); Carbon Dioxide 24 mmol/L (22-29); Chloride 101 mmol/L (98-107); Estimated GFR-MDRD 7; Globulin 3.1 g/dL (2.4-3.5); Glucose 137 mg/dL (70-105); Lipase 49 U/L (8-78); Potassium 4.3 mmol/L (3.5-5.1); Protein, Total 6.1 g/dL (6.0-8.3); Sodium 140 mmol/L (136-145)
[2020-09-17] MEDS ORDERED: Pantoprazole 40 MG VIAL IVP SCH ×2 (04:45→09:00)
[2020-09-17] MEDS ORDERED: Sodium Chloride 0.9% (PF) 10 ML VIAL FS PRN (04:45)
--- NOTE | 2020-09-17 05:29 | PDOC.FM ---
- Subjective Subjective: Patient was sleeping comfortably in bed. Upon awakening, he reported nausea but denied abdominal pain. Per reports from nursing and overnight residents, patient has two episodes of emesis and reported abdominal pain. He denied nausea at the time of the emesis. His O2 saturation was also found to be in the 80s and he was started on NC with a repeat Xray ordered. - Objective MAR Reviewed: Yes Vital Signs & Weight: Vital Signs (12 hours) Temp Pulse Resp BP BP Pulse Ox 09/17/20 04:00 98.4 F 86 16 120/61 96 09/17/20 00:00 97.7 F 86 16 111/57 L 85 L 09/16/20 20:45 82 91/51 L 09/16/20 20:00 97.9 F 82 16 91/51 L 97 09/16/20 19:45 97 Weight Admit Weight 68.039 kg Weight 68.039 kg Most Recent Monitor Data Heart Rate from ECG 84 NIBP 94/50 NIBP BP-Mean 64 Respiration from ECG 10 SpO2 94 I&O: 09/15/20 09/16/20 09/17/20 06:59 06:59 06:59 Intake Total 1024 62 Output Total 1 Balance 1024 61 Result Diagrams: 09/17/20 03:50 09/17/20 03:50 Phys Exam - Physical Examination Constitutional: NAD HEENT: moist MMs Neck: supple Respiratory: no wheezing, no rales, no rhonchi, clear to auscultation bilateral decreased breath sounds on the right Cardiovascular: RRR Gastrointestinal: soft, non-tender, positive bowel sounds Musculoskeletal: no edema Psychiatric: normal affect Skin: no rash Dx/Plan - Plan Plan: 39yo male w/ hx IDDM, ESRD on HD who presents w/ hyperkalemia and AG metab acidosis after missing dialysis AG metabolic acidosis 2/2 DKA, improving -on admission: pH 6.9, AG 28, B-hydroxybutyrate 10 -ED: s/p sodium bicarb, insulin and IVF given -likely 2/2 to noncompliance -s/p DKA protocol -AG of 15 this AM -fluids were stopped after dialysison 09/[address] the [address] Yanez due to patient's ESRD -insulin drip stopped around 0900 on 09/16; started on home insulin and given renal/diabetic diet on 09/16 -ACHS glucose checks Hyperkalemia 2/2 missed HD, resolved -K 7.4, ekg: no ST changes -s/p calcium chloride in ED and insulin gtt -nephrology consulted: urgent dialysis 09/15 -K: 3.8 > 4.3 Nausea/Vomiting -abdominal pain has resolved -zofran for N/V ESRD on HD -noncompliant -repeat Xray on 09/17 appears improved compared to admission Xray -Dr. Yanez consulted, appreciate recs * urgent dialysis 09/15 * will undergo dialysis prior to likely DC this afternoon elevated lipase, resolved -lipase 144 > 512 > 49 -AST/ALT, Tbili: WNL -no abdominal tenderness on exam this morning -Abd US: mild dilation of intrahepatic and extrahepatic biliary tree, large R. pleural effusion, no cholelithiasis allergic conjunctivitis -anti-histamine eye drops ordered IDDM2 -See above Hx of CVA -Stable, aware Hx of DVTs -continue home eliquis Substance abuse -encourage cessation Seizure disorder -Continue home meds -Seizure precautions Chronic diarrhea -Stable -continue home meds Dispo: dialysis today and possible DC home pending resolution of N/V Addendum - Attending - Attending Attestation Date/Time: 09/17/20 3468 I personally evaluated the patient and discussed the management with Dr. Fisher. I agree with the History, Examination, Assessment and Plan documented above with any addition or exceptions noted below. The patient will get dialysis today. Lipase improved. Overnight patient complained of nausea/vomiting. Zofran given. Will try to get patient to eat and see if he can tolerate PO.
[2020-09-17 06:06] LABS: INR-International Normal Ratio 1.5; PTT 41.4 sec (22.9-36.1); Prothrombin Time 18.1 sec (12.0-14.7)
[2020-09-17] MEDS: Ondansetron PF 4 MG/2 ML Vial IVP PRN (06:52)
--- NOTE | 2020-09-17 09:22 | RAD ---
SINGLE VIEW OF THE CHEST: COMPARISON: 09/15/2020. HISTORY: Pleural effusion and altered mental status. Decreased oxygen saturation. FINDINGS: A single view of the chest shows a cardiomediastinal silhouette which is upper limits of normal in si ze. There is a large right pleural effusion with adjacent atelectasis. No left-sided pleural effusi on or infiltrates are seen. Multiple stents are seen in both upper extremities. IMPRESSION: Stable large right pleural effusion with adjacent atelectasis versus infiltrate. POS: EAA
[2020-09-17] MEDS: HumaLOG 300 UNITS/3 ML VIAL SC SCH ×3 (09:49→17:25)
[2020-09-17] MEDS: Insulin Glargine 20 UNITS in Pre-Filled Syringe 1 EACH SC SCH (09:53)
[2020-09-17] MEDS: hydrALAZINE 25 MG TAB PO SCH ×3 (10:05→20:43)
[2020-09-17] MEDS: Apixaban 5 MG TAB PO SCH ×2 (10:05→20:38)
[2020-09-17] MEDS: Sevelamer Carbonate 800 MG TAB PO SCH ×3 (10:05→17:27)
[2020-09-17] MEDS: Aspirin 81 mg Enteric Coated Tablet PO SCH (10:06)
[2020-09-17] MEDS: Amlodipine 10 MG TAB PO SCH (10:06)
[2020-09-17] MEDS: levETIRAcetam 500 MG TAB PO SCH ×2 (10:06→20:38)
[2020-09-17] MEDS: Ketotifen Fumarate 0.025% Ophth Soln 5 ml Bottle R EYE SCH ×2 (10:06→20:39)
[2020-09-17] MEDS: Cinacalcet HCl 30 MG TAB PO SCH (10:06)
[2020-09-17] MEDS: Ketotifen Fumarate 0.025% Ophth Soln 5 ml Bottle L EYE SCH ×2 (10:06→20:39)
--- NOTE | 2020-09-18 05:37 | PDOC.FM ---
- Subjective Subjective: Patient much more alert and interactive this morning. He reports that he is feeling much better and denies N/V and abdominal pain. He reports that he feels like his appetite has returned and he would like to attempt to eat breakfast. Black stool reported overnight. This morning nurse described it as stool with spots of black that appeared to be old blood. - Objective MAR Reviewed: Yes Vital Signs & Weight: Vital Signs (12 hours) Temp Pulse Resp BP Pulse Ox 09/18/20 04:00 98.5 F 82 14 115/58 L 95 09/17/20 23:56 98.6 F 86 16 119/59 L 92 L 09/17/20 20:43 89 09/17/20 19:50 98 09/17/20 19:25 98.2 F 89 18 112/56 L 95 Weight Admit Weight 68.039 kg Weight 68.039 kg Most Recent Monitor Data Heart Rate from ECG 84 NIBP 94/50 NIBP BP-Mean 64 Respiration from ECG 10 SpO2 94 I&O: 09/16/20 09/17/20 09/18/20 06:59 06:59 06:59 Intake Total 1024 132 Output Total 1 Balance 1024 131 Result Diagrams: 09/18/20 09:09 09/17/20 03:50 Phys Exam - Physical Examination Constitutional: NAD HEENT: moist MMs Neck: supple, full ROM decreased breath sounds on the right Cardiovascular: RRR, no significant murmur Gastrointestinal: soft, non-tender, no distention, positive bowel sounds Neurological: non-focal Psychiatric: normal affect Skin: normal turgor Dx/Plan - Plan Plan: Plan: 39yo male w/ hx IDDM, ESRD on HD who presents w/ hyperkalemia and AG metab acidosis after missing dialysis AG metabolic acidosis 2/2 DKA, improving -on admission: pH 6.9, AG 28, B-hydroxybutyrate 10 -ED: s/p sodium bicarb, insulin and IVF given -likely 2/2 to noncompliance -s/p DKA protocol -AG of 15 this AM -fluids were stopped after dialysison 09/[address] the [address] Yanez due to patient's ESRD -insulin drip stopped around 0900 on 09/16; started on home insulin and given renal/diabetic diet on 09/16 -patient did not eat on 09/17 as he reported that he did not have an appetite, he reports improvement today and feels as if his appetite has returned -[facility]HS glucose checks Hyperkalemia 2/2 missed HD, resolved -K 7.4, ekg: no ST changes -s/p calcium chloride in ED and insulin gtt -nephrology consulted: urgent dialysis 09/15, dialysis again on 09/17 -K: 3.8 > 4.3 Nausea/Vomiting and Dark Stool -abdominal pain has resolved -patient reports improvement in symptoms -zofran for N/V -FOBT ordered -Hgb stable, no signs of active bleeding ESRD on HD -noncompliant -repeat Xray on 09/17 appears improved compared to admission Xray -Dr. Yanez consulted, appreciate recs * urgent dialysis 09/15 * dialysis on 09/17 elevated lipase, resolved -lipase 144 > 512 > 49 -AST/ALT, Tbili: WNL -no abdominal tenderness on exam this morning -Abd US: mild dilation of intrahepatic and extrahepatic biliary tree, large R. pleural effusion, no cholelithiasis allergic conjunctivitis -anti-histamine eye drops ordered IDDM2 -See above Hx of CVA -Stable, aware Hx of DVTs -continue home eliquis Substance abuse -encourage cessation Seizure disorder -Continue home meds -Seizure precautions Chronic diarrhea -Stable -continue home meds Dispo: possible DC home pending ability to tolerate PO intake Addendum - Attending - Attending Attestation Date/Time: 09/18/20 3029 I personally evaluated the patient and discussed the management with Dr. Fisher. I agree with the History, Examination, Assessment and Plan documented above with any addition or exceptions noted below. The patient was feeling much better this morning. He was going to try to eat. he did drink a protein shake and was going to d/c however he was noted to be hypoxic. His sats dropped to the 70's. We are getting a covid pcr, cxr and abg. Pt is not tachycardic and his blood pressure is normal. Will continue o2.
--- NOTE | 2020-09-18 08:19 | PRG ---
DATE OF SERVICE: 09/17/2020 SUBJECTIVE: The patient is seen and examined, seems to be a little bit confused. Noted with the following vital signs. OBJECTIVE: VITAL SIGNS: Afebrile, temperature 97.6, pulse 89, respiratory rate of 18, O2 saturations 92%, blood pressure 112/59. HEENT: Unremarkable. CARDIOVASCULAR SYSTEM: First and second heart sounds were heard. RESPIRATORY SYSTEM: Clear to auscultation. DIGESTIVE SYSTEM: Revealed a benign abdomen. Positive bowel sounds. EXTREMITIES: No peripheral edema. SKIN: No new gross rash. LYMPHATICS: No peripheral lymphadenopathy. IMPRESSION: 1. End-stage renal disease. 2. Severe medical noncompliance. 3. Diabetic ketoacidosis, resolved. PLAN: 1. Patient dialyzed today. 2. From the renal standpoint, patient is due for discharge. Job ID: [id number]
[2020-09-18] MEDS: HumaLOG 300 UNITS/3 ML VIAL SC SCH ×4 (08:46→16:13)
[2020-09-18] MEDS: Sevelamer Carbonate 800 MG TAB PO SCH ×3 (08:46→16:13)
[2020-09-18] MEDS: Amlodipine 10 MG TAB PO SCH (08:47)
[2020-09-18] MEDS: Cinacalcet HCl 30 MG TAB PO SCH (08:48)
[2020-09-18] MEDS: Aspirin 81 mg Enteric Coated Tablet PO SCH (08:48)
[2020-09-18] MEDS: Apixaban 5 MG TAB PO SCH ×2 (08:48→21:23)
[2020-09-18] MEDS: hydrALAZINE 25 MG TAB PO SCH ×3 (08:49→21:23)
[2020-09-18] MEDS: Insulin Glargine 20 UNITS in Pre-Filled Syringe 1 EACH SC SCH (08:49)
[2020-09-18] MEDS: Ketotifen Fumarate 0.025% Ophth Soln 5 ml Bottle R EYE SCH ×2 (08:50→21:32)
[2020-09-18] MEDS: Ketotifen Fumarate 0.025% Ophth Soln 5 ml Bottle L EYE SCH ×2 (08:50→21:31)
[2020-09-18] MEDS: levETIRAcetam 500 MG TAB PO SCH ×2 (08:50→21:23)
[2020-09-18] MEDS ORDERED: Pantoprazole 40 MG VIAL IVP SCH (09:00)
[2020-09-18 09:38] LABS: #Lymphocytes 1.6 thou/uL (1.20-3.40); #Monocytes 0.8 thou/uL (0.11-0.59); #Neutrophils 3.8 thou/uL (1.40-6.50); %Basophils 0.4 % (0.0-1.0); %Eosinophils 0.4 % (0.0-10.0); %Lymphocytes 25.3 % (21.0-51.0); %Monocytes 13.2 % (0.0-10.0); %Neutrophils 60.7 % (42.0-75.0); Hemoglobin 10.5 g/dL (14.0-18.0); Mean Corpuscular HGB CONC 30.7 g/dL (32.0-36.0); Mean Corpuscular Hemoglobin 28.2 pg (27.0-31.0); Mean Corpuscular Volume 91.6 fL (78.0-98.0); Mean Platelet Volume 11.3 fL (7.4-10.4); Platelet Count 131 thou/uL (130-400); RBC Distribution Width 16.4 % (11.5-14.5); Red Blood Cell (RBC) Count 3.72 mill/uL (4.70-6.10); White Blood Cell (WBC) Count 6.3 thou/uL (4.8-10.8)
--- NOTE | 2020-09-18 15:56 | RAD ---
PORTABLE CHEST: DATE: 09/18/2020. PROVIDED CLINICAL HISTORY: Decreased O2 saturation. FINDINGS: Comparison is made with the study dated 09/17/2020. Significant interval change with respect to the prior examination is not apparent. IMPRESSION: As above. POS: PHYLLIS
--- NOTE | 2020-09-18 17:01 | PRG ---
DATE OF SERVICE: 09/18/2020 SUBJECTIVE: The patient noted with the following vital signs. OBJECTIVE: VITAL SIGNS: Afebrile, blood pressure 155 to 151 over 72, O2 saturations are 99%. HEENT: Unremarkable. CARDIOVASCULAR: First and second heart sounds were heard. RESPIRATORY: Clear to auscultation. DIGESTIVE SYSTEM: Revealed a benign abdomen. EXTREMITIES: No peripheral edema. SKIN: No new gross rash. LYMPHATICS: No peripheral lymphadenopathy. IMPRESSION: 1. End-stage renal disease. 2. Severe medical noncompliance. 3. Diabetic ketoacidosis. 4. Hyperkalemia, resolved. PLAN: 1. There is no indication for dialysis today. Therefore, patient will be dialyzed tomorrow. 2. From the renal standpoint, status post dialysis tomorrow. The patient is due for discharge. Further management will be dependent on the clinical course. We will continue to drug and alcohol counselor this patient on the need for improved medical compliance. Job ID: [id number]
[2020-09-18 19:52] LABS: SARS-CoV-2 MS2 Positive; SARS-CoV-2 N Gene Negative; SARS-CoV-2 S Gene Negative; SARS-CoV-2 by NAA Not Detected (NotDetected); SARS-CoV-2 orf1ab Negative
[2020-09-19 04:18] LABS: Actual Bicarbonate (HCO3a) 26.1 mEq/L (22-28); Analyzer IN Cardio ER; Base Excess (BEa) -1.1 mEq/L (-2.0 to +3.0); CO2 Tension 55.7 mmHg (35.0-45.0); Calcium, Ionized (arterial) 0.92 mmol/L (1.12-1.30); Carboxyhemoglobin (COHb) 0.6 gm% (0.0-3.0); Hemoglobin (Hb) 11.2 g/dL (14.0-18.0); O2 Tension (PaO2), arterial 66.8 mmHg (80.0-100.0); pH, Arterial 7.29 (7.35-7.45)
[2020-09-19 04:20] LABS: Puncture Site LRA
--- NOTE | 2020-09-19 05:50 | PDOC.FM ---
- Subjective Subjective: Pt resting comfortably this morning. Reports a period of mild chest pain yesterday evening after he at dinner, located in center of chest, resolved on its own. Has no diagnosis of GERD but reports he sometimes takes tums for indigestion. - Objective Vital Signs & Weight: Vital Signs (12 hours) Temp Pulse Resp BP BP Pulse Ox 09/19/20 04:35 97.5 F L 87 18 119/69 96 09/18/20 23:53 97.8 F 82 18 128/77 100 09/18/20 22:50 100 09/18/20 21:23 86 126/73 09/18/20 20:00 98.2 F 86 20 126/73 99 Weight Admit Weight 68.039 kg Weight 68.039 kg Most Recent Monitor Data Heart Rate from ECG 84 NIBP 94/50 NIBP BP-Mean 64 Respiration from ECG 10 SpO2 94 I&O: 09/17/20 09/18/20 09/19/20 06:59 06:59 06:59 Intake Total 132 240 670 Output Total 1 Balance 131 240 670 Result Diagrams: 09/18/20 09:09 09/17/20 03:50 Phys Exam - Physical Examination Constitutional: NAD Neck: supple, full ROM Respiratory: no wheezing, clear to auscultation bilateral Cardiovascular: RRR Gastrointestinal: soft, non-tender, no distention Musculoskeletal: no edema R BKA Neurological: non-focal Psychiatric: A&O x 3 Deviation from normal: LLE wrapped Dx/Plan - Plan Plan: 39yo male w/ hx IDDM, ESRD on HD who presents w/ hyperkalemia and AG metab acidosis after missing dialysis AG metabolic acidosis 2/2 DKA, improving -on admission: pH 6.9, AG 28, B-hydroxybutyrate 10 -ED: s/p sodium bicarb, insulin and IVF given -likely 2/2 to noncompliance -s/p DKA protocol -AG of 15 this AM -fluids were stopped after dialysis on 09/[address] the [address] Yanez due to patient's ESRD -insulin drip stopped around 0900 on 09/16; started on home insulin and given renal/diabetic diet on 09/16 -patient did not eat on 09/17 as he reported that he did not have an appetite, he reports improvement today and feels as if his appetite has returned -ACHS glucose checks -seems to be back at baseline, likely to discharge after dialysis today Hyperkalemia 2/2 missed HD, resolved -K 7.4, ekg: no ST changes -s/p calcium chloride in ED and insulin gtt -nephrology consulted: urgent dialysis 09/15, dialysis again on 09/17 -K: 3.8 > 4.3 Nausea/Vomiting and Dark Stool -abdominal pain has resolved -patient reports improvement in symptoms -zofran for N/V -FOBT positive: has history of chronic diarrhea with extensive workup, can f/u outpatient -Hgb stable, no signs of active bleeding ESRD on HD -noncompliant -repeat Xray on 09/17 appears improved compared to admission Xray -Dr. Yanez consulted, appreciate recs * urgent dialysis 09/15 * dialysis on 09/17 and 09/19 elevated lipase, resolved -lipase 144 > 512 > 49 -AST/ALT, Tbili: WNL -no abdominal tenderness on exam this morning -Abd US: mild dilation of intrahepatic and extrahepatic biliary tree, large R. pleural effusion, no cholelithiasis allergic conjunctivitis -improved -anti-histamine eye drops ordered IDDM2 -See above Hx of CVA -Stable, aware Hx of DVTs -continue home eliquis Substance abuse -encourage cessation Seizure disorder -Continue home meds -Seizure precautions Chronic diarrhea -Stable -continue home meds Dispo:Stable, dialysis planned for today, then likely discharge
[2020-09-19] MEDS ORDERED: Sodium Chloride 0.65% Nasal 44 ML BOT EA NARE PRN (08:11)
[2020-09-19] MEDS: Sevelamer Carbonate 800 MG TAB PO SCH ×4 (08:35→18:26)
[2020-09-19] MEDS: Insulin Glargine 20 UNITS in Pre-Filled Syringe 1 EACH SC SCH (08:40)
[2020-09-19] MEDS: Aspirin 81 mg Enteric Coated Tablet PO SCH (09:04)
[2020-09-19] MEDS: levETIRAcetam 500 MG TAB PO SCH (09:05)
[2020-09-19] MEDS: Cinacalcet HCl 30 MG TAB PO SCH (09:05)
[2020-09-19] MEDS: Apixaban 5 MG TAB PO SCH (09:05)
[2020-09-19] MEDS: hydrALAZINE 25 MG TAB PO SCH ×2 (09:06→15:35)
[2020-09-19] MEDS: Ketotifen Fumarate 0.025% Ophth Soln 5 ml Bottle L EYE SCH (09:07)
[2020-09-19] MEDS: Ketotifen Fumarate 0.025% Ophth Soln 5 ml Bottle R EYE SCH (09:59)
[2020-09-19] MEDS: HumaLOG 300 UNITS/3 ML VIAL SC SCH ×3 (10:01→18:30)
--- NOTE | 2020-09-19 11:58 | PRG ---
DATE OF SERVICE: 09/19/2020 Please see the note from Dr. Garzon, for which I agree. The patient was seen, evaluated, discussed, and examined with the residents by bedside. Basically, the patient is getting dialysis again today. History of noncompliance and came in DKA after missed dialysis. He is doing better. Still poor appetite and there is some question of nurse thought he was desaturating on oxygen this morning. Does have a large pleural effusion. But, sounds like as he was awake, he is normally doing okay. No evidence of sleep apnea. No witnessed sleep apnea. So, at this point in time, I am getting dialysis and seeing his appetite increases and we will watch his oxygen level. Job ID: [id number]
[2020-09-19 15:24] VITALS: BP 142/75
[2020-09-19] MEDS: Amlodipine 10 MG TAB PO SCH (15:33)
--- NOTE | 2020-09-19 17:53 | PRG ---
DATE OF SERVICE: 09/19/2020 SUBJECTIVE: The patient was seen and examined at dialysis, noted with the following vital signs. OBJECTIVE: VITAL SIGNS: Afebrile, temperature 97.4, pulse 95, blood pressure 142/75, respiratory rate of 18, O2 saturation of 100%. HEENT: Unremarkable. CARDIOVASCULAR SYSTEM: First and second heart sounds were heard. RESPIRATORY SYSTEM: Clear to auscultation. DIGESTIVE SYSTEM: Revealed a benign abdomen with positive bowel sounds. EXTREMITIES: No peripheral edema. SKIN: No new gross rash. LYMPHATICS: No peripheral lymphadenopathy. IMPRESSION: 1. End-stage renal disease. 2. Severe medical noncompliance. 3. Diabetic ketoacidosis, status post resuscitation. 4. Severe hyperkalemia in the context of dialysis noncompliance and diabetic ketoacidosis. 5. Severe metabolic acidosis, improved. PLAN: 1. The patient is being dialyzed today in accordance with his scheduled dialysis. 2. Continue counseling on the need for medical compliance. 3. Further management to be dependent on the clinical course. Job ID: [id number]
[2020-09-19] MEDS ORDERED: Insulin Glargine 10 UNITS in Pre-Filled Syringe 1 EACH SC SCH (18:30)
[2020-09-19 20:10] VITALS: TEMP 97.8
== END 2020-09-19 19:33 | disposition home or self-care (01) | DRG 637 ==
LOC: ERS 07:43 → IMCU/EMU 11:25 → ONC 09-16 17:13 → T4-A 09-18 17:40
PROVIDERS: ADMIT Family Medicine; ATTEND Family Medicine
PROC: 5A1D70Z Performance of Urinary Filtration, Intermittent, Less than 6 Hours Per Day (ICD-10-PCS; principal; 2020-09-15)
PROC: 06HY33Z Insertion of Infusion Device into Lower Vein, Percutaneous Approach (ICD-10-PCS; 2020-09-15)
DX: E11.10 Type 2 diabetes mellitus with ketoacidosis without coma (principal); N18.6 End stage renal disease; I12.0 Hypertensive chronic kidney disease with stage 5 chronic kidney disease or end stage renal disease; J90 Pleural effusion, not elsewhere classified; Z20.828 Contact with and (suspected) exposure to other viral communicable diseases; E11.22 Type 2 diabetes mellitus with diabetic chronic kidney disease; G40.909 Epilepsy, unspecified, not intractable, without status epilepticus; F32.9 Major depressive disorder, single episode, unspecified; F41.9 Anxiety disorder, unspecified; F17.210 Nicotine dependence, cigarettes, uncomplicated; E87.5 Hyperkalemia; K52.9 Noninfective gastroenteritis and colitis, unspecified; H10.13 Acute atopic conjunctivitis, bilateral; E78.5 Hyperlipidemia, unspecified; E78.00 Pure hypercholesterolemia, unspecified; K21.9 Gastro-esophageal reflux disease without esophagitis; F12.10 Cannabis abuse, uncomplicated; Z99.2 Dependence on renal dialysis; Z88.0 Allergy status to penicillin; Z79.899 Other long term (current) drug therapy; Z79.82 Long term (current) use of aspirin; Z79.01 Long term (current) use of anticoagulants; Z79.4 Long term (current) use of insulin; Z86.73 Personal history of transient ischemic attack (TIA), and cerebral infarction without residual deficits; Z89.512 Acquired absence of left leg below knee; Z86.718 Personal history of other venous thrombosis and embolism; Z91.15 Patient's noncompliance with renal dialysis; Z91.19 Patient's noncompliance with other medical treatment and regimen
CPT/HCPCS: 36415; 36416; 36556; 36600; 71045; 80053; 82010; 82274; 82330; 82550; 82553; 82803; 82805; 83690; 83735; 83880; 84100; 84484; 85014; 85018; 85025; 85049; 85610; 85730; 87635; 90935; 93005; 93010; 93975; 96365; 96366; 96375; 96376; 99292; C9113; G0257; J1815; J2405; J3490; U0002; U0003

== ENCOUNTER 2020-09-22 13:25 | Inpatient (IN) | payer MEDICARE, MEDICAID ==
[2020-09-22] MEDS ORDERED: Calcium Gluc 4.6 MEQ/10 ML (100 MG/ML) ONE (14:19)
[2020-09-22] MEDS ORDERED: Magnesium 2 GM/50 ML BAG (IN WATER) ONE (14:57)
--- NOTE | 2020-09-22 15:06 | RAD ---
EXAM: CHEST ONE VIEW HISTORY: Altered mental status. Central line placement. COMPARISON: 09/18/2020 FINDINGS: Moderately large right pleural effusion and associated atelectasis is again present. Pleural fluid, a llowing for differences in patient positioning, has not significantly changed. Left lung remains clear. Multiple vascular stents are again seen overlying the axillary regions bilaterally as well as overlying the region of the left subclavian vessels similar to prior exam. Right cardiac border is obscured, but the cardiac silhouette is otherwise within normal limits. Pulmonary vasculature appears to be within normal limits. There is a radiopaque catheter overlying the left shoulder which may represent a peripheral intravenous catheter. No other interval change. IMPRESSION: 1. Moderately large right pleural effusion and associated atelectasis. There is slightly greater hazy density seen, but this is likely related to pleural fluid layering posteriorly. This exam is obtained in supine position with prior study obtained in upright position. 2. Provided history is central line placement. However, no central venous catheter is seen on this ex amination, and no pneumothorax is seen.
[2020-09-22 15:12] LABS: #Basophils 0.1 thou/uL (0.0-0.2); #Lymphocytes 1.5 thou/uL (1.20-3.40); #Monocytes 0.5 thou/uL (0.11-0.59); #Neutrophils 4.8 thou/uL (1.40-6.50); %Basophils 0.9 % (0.0-1.0); %Eosinophils 0.2 % (0.0-10.0); %Lymphocytes 21.9 % (21.0-51.0); %Monocytes 7.3 % (0.0-10.0); %Neutrophils 69.6 % (42.0-75.0); Hemoglobin 10.4 g/dL (14.0-18.0); Mean Corpuscular HGB CONC 30.3 g/dL (32.0-36.0); Mean Corpuscular Hemoglobin 28.6 pg (27.0-31.0); Mean Corpuscular Volume 94.5 fL (78.0-98.0); Mean Platelet Volume 11.2 fL (7.4-10.4); Platelet Count 138 thou/uL (130-400); RBC Distribution Width 16.4 % (11.5-14.5); Red Blood Cell (RBC) Count 3.62 mill/uL (4.70-6.10)
[2020-09-22] MEDS ORDERED: Norepinephrine 4 MG/4 ML VIAL ONE (15:32)
[2020-09-22] MEDS ORDERED: Norepinephrine 8 MG/0.9% NS 250 ML ONE (15:33)
[2020-09-22 15:40] LABS: ALT (SGPT) 9 U/L (8-55); AST (SGOT) 10 U/L (5-34); Albumin 2.8 g/dL (3.5-5.0); Alkaline Phosphatase 95 U/L (40-110); BUN (Urea Nitrogen) 47 mg/dL (8.9-20.6); Bilirubin, Total 0.3 mg/dL (0.2-1.2); Calc. Creatinine Clearance 0 mL/min (70-130); Calcium 6.6 mg/dL (7.8-10.44); Chloride 101 mmol/L (98-107); Globulin 2.8 g/dL (2.4-3.5); Glucose 448 mg/dL (70-105); Protein, Total 5.6 g/dL (6.0-8.3); Sodium 137 mmol/L (136-145)
[2020-09-22 15:45] LABS: Carbon Dioxide Less than 8 mmol/L (22-29)
[2020-09-22 16:28] LABS: Base Excess-Venous -22.6 mmol/L (-2.0 to 3.0); Bicarbonate (HCO3v) 6.4 mmol/L (22.0-28.0); CO2 Tension (PvCO2) 23.1 mmHg (40.0-50.0); Calcium, Ionized 0.83 mmol/L (1.15-1.33); Chloride 110 mmol/L (98-107); Hemoglobin - Calc 11.8 g/dL (14.0-18.0); Potassium 3.1 mmol/L (3.5-5.1); Sodium 132 mmol/L (138-145); T. Carbon Dioxide 7.1 mmol/L (22.0-28.0); vO2 Saturation-calc 98.9 % (60.0-85.0)
[2020-09-22] MEDS ORDERED: Cefepime 2 GM VIAL ONE (16:29)
--- NOTE | 2020-09-22 16:37 | PDOC.FPRHP ---
- History of Present Illness Chief Complaint: elevated sugar, decreased physical activity. History of Present Illness: 39yo M with known type I DM and ESRD on HD presents via EMS for elevated blood sugar, being found in feces/urine, and missed HD. HH RN reports blood sugars in the 500s and she gave 5u insulin before EMS arrived. His mom reports that he has not moved from his chair since Monday and EMS reports he was found in his feces/urine. He reportedly missed HD yesterday. He denies any specific complaints at this time. He is alert and will answer questions, however he is not conversant. ED Course: 2.5L NS, 20meq KCl, Levophed 5mcg/min, Cefepime 2g, Vanc 1.5g, Mag 2g, Calcium gluconate 3g, - Allergies/Adverse Reactions Allergies Allergy/AdvReac Type Severity Reaction Status Date / Time Penicillins Allergy Unknown Verified 09/15/20 15:54 - Home Medications Medication Instructions Recorded Confirmed Type Acetaminophen [Tylenol Regular 650 mg PO Q4HR PRN 07/12/20 09/15/20 History Strength] Amlodipine [Norvasc] 10 mg PO DAILY 30 Days #30 tab 09/03/20 09/15/20 Rx Apixaban [Eliquis] 5 mg PO BID 30 Days #60 tab 09/03/20 09/15/20 Rx Aspirin [Ecotrin Low Strength] 81 mg PO DAILY 30 Days #30 tab 09/03/20 09/15/20 Rx Cinacalcet HCl [Sensipar] 60 mg PO DAILY 30 Days #60 tab 09/03/20 09/15/20 Rx Diphenoxylate HCl/Atropine 2 tab PO TID PRN 15 Days #90 tab 09/03/20 09/15/20 Rx [Lomotil] Glucagon 1 mg IM PRN PRN #5 vial 09/03/20 09/15/20 Rx HumaLOG [HumaLOG Vial] 2 units SC TID-WM 30 Days #1 vial 09/03/20 09/15/20 Rx Insulin Glargine [Lantus] 20 units SC QAM 30 Days #2 vial 09/03/20 09/15/20 Rx Sertraline HCl 50 mg PO BID 30 Days #120 tablet 09/03/20 09/15/20 Rx Sevelamer Carbonate [Renvela] 2,400 mg PO TID-WM 30 Days #360 tab 09/03/20 09/15/20 Rx hydrALAZINE [Apresoline] 25 mg PO TID 30 Days #90 tab 09/03/20 09/15/20 Rx levETIRAcetam [Keppra] 500 mg PO BID 30 Days #60 tab 09/03/20 09/15/20 Rx - History PMHx: DM Type I, HTN, ESRD on HD, sz disorder, anxiety/depression, CVAx2 PSHx: Fistula R arm, Right BKA FHx: non-contributory Social: tobacco-smokes 1/2 ppd, smokes marijuana 3-4x/wk, hx PCP use - Review of Systems General: reports: weight/appetite/sleep changes, fatigue. denies: fever/chills ENT: denies: nasal congestion, rhinorrhea Respiratory: denies: cough, congestion, shortness of breath Cardiovascular: denies: chest pain, palpitation, edema Gastrointestinal: reports: diarrhea. denies: nausea, vomiting, constipation Genitourinary: denies: incontinence Skin: reports: lesions (Wound on LLE). denies: rashes Musculoskeletal: denies: pain, tenderness Neurological: denies: numbness, syncope, seizure Psychological: reports: anxiety, depression - Vital signs BP: 100/75 (Sitting), MAP: 83, Pulse: 72, Resp: 18 (Non-Labored), Pain: 0, O2 sat: 99 on (Room Air), Time: 09/22/2020 16:19. Weight: 68kg - Physical Exam Constitutional: NAD, awake, alert and oriented -Constitutional: Physically deconditioned. HEENT: normocephalic and atraumatic, PERRLA, EOMI, conjunctiva clear, grossly normal vision, grossly normal hearing -HEENT: Dry mucus membranes. Poor oral hygiene. Neck: supple, trachea midline, no LAD Chest: no-tender to palpation Heart: RRR, normal S1/S2, no murmurs/rubs/gallops, pulses present Lungs: CTAB, no respiratory distress, good air movement, no rales/rhonchi, no wheezing Abdomen: soft, non-tender, bowel sounds present -Musculoskeletal: Muscle wasting. R BKA Neurological: no focal deficit, CN II-XII intact Skin: good turgor -Skin: LLE wound. Heme/Lymphatic: no unusual bruising or bleeding Psychiatric: normal mood and affect FMR H&P: Results - Labs Result Diagrams: 09/23/20 04:07 09/23/20 04:07 Lab results: WBC 7.0 thou/uL (4.8-10.8) 09/22/20 14:59 Hgb 10.4 g/dL (14.0-18.0) L 09/22/20 14:59 Hct 34.3 % (42.0-52.0) L 09/22/20 14:59 MCV 94.5 fL (78.0-98.0) 09/22/20 14:59 Plt Count 138 thou/uL (130-400) 09/22/20 14:59 Neutrophils % 69.6 % (42.0-75.0) 09/22/20 14:59 Sodium 137 mmol/L (136-145) 09/22/20 14:59 Potassium 3.0 mmol/L (3.5-5.1) L 09/22/20 14:59 Chloride 101 mmol/L (98-107) 09/22/20 14:59 Carbon Dioxide Less than 8 mmol/L (22-29) L* 09/22/20 14:59 BUN 47 mg/dL (8.9-20.6) H 09/22/20 14:59 Creatinine 7.78 mg/dL (0.7-1.3) H 09/22/20 14:59 Glucose 448 mg/dL (70-105) H 09/22/20 14:59 Lactic Acid 1.0 mmol/L (0.5-2.2) 09/22/20 15:32 Calcium 6.6 mg/dL (7.8-10.44) L 09/22/20 14:59 Total Bilirubin 0.3 mg/dL (0.2-1.2) 09/22/20 14:59 AST 10 U/L (5-34) 09/22/20 14:59 ALT 9 U/L (8-55) 09/22/20 14:59 Alkaline Phosphatase 95 U/L (40-110) 09/22/20 14:59 Serum Total Protein 5.6 g/dL (6.0-8.3) L 12/01/20 14:59 Albumin 2.8 g/dL (3.5-5.0) L 09/22/20 14:59 - EKG Interpretation EKG: Normal sinus rhythm. - Radiology Interpretation Chest x-ray Status: image reviewed by me, report reviewed by me (1. Moderately large right pleural effusion and associated atelectasis. There is slightly greater hazy dens ity seen, but this is likely related to pleural fluid layering posteriorly. This exam is obtained in supine position with prior study obtained in upright position. 2. No pneumothorax.) FMR H&P: A/P - Problem List (1) DKA (diabetic ketoacidoses) Current Visit: Yes Status: Acute Code(s): E11.10 - TYPE 2 DIABETES MELLITUS WITH KETOACIDOSIS WITHOUT COMA Qualifiers: Diabetes mellitus type: type 1 Diabetes mellitus complication detail: without coma Qualified Code(s): E10.10 - Type 1 diabetes mellitus with ketoacidosis without coma (2) Hypokalemia Current Visit: Yes Status: Acute Code(s): E87.6 - HYPOKALEMIA (3) Hypothermia Current Visit: Yes Status: Acute Code(s): T68.XXXA - HYPOTHERMIA, INITIAL ENCOUNTER (4) Increased anion gap metabolic acidosis Current Visit: Yes Status: Acute Code(s): E87.2 - ACIDOSIS (5) Metabolic encephalopathy Current Visit: Yes Status: Acute Code(s): G93.41 - METABOLIC ENCEPHALOPATHY (6) Uremia Current Visit: Yes Status: Acute Code(s): N19 - UNSPECIFIED KIDNEY FAILURE (7) Diabetes mellitus type 1 with complications Current Visit: Yes Status: Chronic Priority: High Code(s): E10.8 - TYPE 1 DIABETES MELLITUS WITH UNSPECIFIED COMPLICATIONS (8) ESRD (end stage renal disease) on dialysis Current Visit: Yes Status: Chronic Code(s): N18.6 - END STAGE RENAL DISEASE; Z99.2 - DEPENDENCE ON RENAL DIALYSIS (9) Non-compliance with renal dialysis Current Visit: Yes Status: Chronic Code(s): Z91.15 - PATIENT'S NONCOMPLIANCE WITH RENAL DIALYSIS (10) Acute metabolic encephalopathy Current Visit: No Status: Acute Code(s): G93.41 - METABOLIC ENCEPHALOPATHY - Plan General: - No acute distress. Neuro: DX: h/o seizure disorder and CVA x 2 - A&O x 3. - ED ordered brain CT, pending. - Continue Keppra Respiratory: - VBG: pH 7.047, O2 181, pCO2 23.1, Bicarb 6.4, K 3.1. - CXR: Moderately large right pleural effusion and associated atelectasis. Cardiovascular: DX: h/o DVT - Abnormal cardio monitor strips in ED consistent with when patient is moving hand across chest wall. 12 Lead was NSR. Will monitor continuously. - On Eliquis, will continue. - Hypotensive in ED. On Levophed gtt. Gastrointestinal: - h/o severe, chronic diarrhea. Will restart Lomotil. Endocrine: DX: ESRD on HD, Type 1 DM, DKA, Anion gap metabolic acidosis, hypokalemia - Pt presents in DKA. Blood glucose of ~450s. pH 7.047. Bicarb 6.4. K 3.1. BhB 12.92. - Aggressively replete K and then begin DKA protocol. - Admit to CCU for close observation. - q2hr BMP until improvement in electrolytes. - q1hr accuchecks. - Dr. Yanez, town marshal, consulted. Dr. Moreno, aboriginal ceremonial celebrant, consulted. /Renal: - Urine cultures pending Infectious: - Hypotensive, hypothermic. - Blood and urine cultures pending. - CXR negative. - s/p 2g cefepime, 1.5g vancomycin. Will monitor overnight and determine need for continued antibiotic therapy. Lines/Tubes: - R Femoral central line 09/22/20. - Disposition/LOS: Admit to CCU for further management. LOS > 48hours likely. Case discussed with Dr. Yoon attending. Addendum - Attending - Attending Attestation Date/Time: 09/23/20 1551 I personally evaluated the patient and discussed the management with Dr. Leos in the ER. I agree with the History, Examination, Assessment and Plan documented above with any addition or exceptions noted below. On exam he is in no distress and answers yes/no questions. No sig inc wob. No obvious source of infection. Patient with DKA, recurrent, from nonadherence to medications and nonadherence to dialysis, with hypokalemia and hypothermia and shock with possible arrhythmia -Replete K prior to insulin as it is so low, then begin insulin per protocol -alejandro hugger, empiric antibiotics -notify nephrology -I was told he has an arrhythmia, but I was at bedside for two of these events and his pulse never changed, but his left arm he started moving rhythmically across his ECG leads at the same time. I suspect spurious, but monitor nonetheless -taper levophed for MAP > 65 -monitor respiratory status
[2020-09-22] MEDS ORDERED: Dextrose 5 %-0.45 % NaCl 1,000 ML IV PRN (16:42)
[2020-09-22] MEDS ORDERED: Sodium Chloride 0.9% 1,000 ML IV PRN ×4 (16:42)
[2020-09-22] MEDS ORDERED: Electrolyte Replacement Protocol 1 EACH IVPB ONE (16:42)
[2020-09-22] MEDS ORDERED: NS 0.9% w/ 20 MEQ KCL 1,000 ML IV PRN ×2 (16:42)
[2020-09-22] MEDS ORDERED: Acetaminophen 650 MG Suppository PR PRN (16:42)
[2020-09-22] MEDS ORDERED: Sodium Bicarb 50 MEQ/50 ML VIAL ONE (16:43)
[2020-09-22] MEDS ORDERED: HUMULIN R 100 UNITS in Sodium Chloride 0.9% 100 ML IVPB SCH (16:45)
[2020-09-22] MEDS ORDERED: Potassium Chloride 20 MEQ/100 ML PREMIX BAG ONE (16:50)
[2020-09-22] MEDS ORDERED: Potassium Chloride 40 MEQ in Sodium Chloride 0.9% 250 ML 250 ML IVPB SCH ×2 (17:00→20:00)
[2020-09-22] MEDS ORDERED: Vancomycin 1.5 GRAM/300 ML BAG 1.5 GM in Premix Bag 1 BAG IVPB SCH (17:30)
[2020-09-22 17:45] LABS: Magnesium 2.9 mg/dL (1.6-2.6)
[2020-09-22 17:53] LABS: Troponin I 0.029 ng/mL (< 0.028)
[2020-09-22 18:02] LABS: ALT (SGPT) 10 U/L (8-55); AST (SGOT) 12 U/L (5-34); Albumin 3.3 g/dL (3.5-5.0); Alkaline Phosphatase 110 U/L (40-110); BUN (Urea Nitrogen) 49 mg/dL (8.9-20.6); Bilirubin, Total 0.3 mg/dL (0.2-1.2); Calc. Creatinine Clearance 0 mL/min (70-130); Chloride 100 mmol/L (98-107); Globulin 3.3 g/dL (2.4-3.5); Glucose 438 mg/dL (70-105); Potassium 3.5 mmol/L (3.5-5.1); Protein, Total 6.6 g/dL (6.0-8.3); Sodium 138 mmol/L (136-145)
[2020-09-22 18:19] LABS: Carbon Dioxide Less than 8 mmol/L (22-29)
--- NOTE | 2020-09-22 18:45 | CT ---
CT OF THE BRAIN WITHOUT CONTRAST: 09/22/20 COMPARISON: 03/22/20. HISTORY: Hyperglycemia with altered mental status. Patient missed dialysis on Monday. TECHNIQUE: Multiple contiguous axial images were obtained in a CT of the brain without contrast. FINDINGS: The brain is normal in morphology and attenuation without focal lesions or confluent areas of infarct ion. There is no evidence of hydrocephalus, intracranial hemorrhage or extra-axial fluid collection. The calvarium and overlying soft tissues are unremarkable. The visualized paranasal sinuses and masto id air cells are well aerated. Extensive vascular calcifications are seen in the scalp. IMPRESSION: No evidence of acute intracranial abnormality. POS: EAA
[2020-09-22] MEDS ORDERED: INSULIN REGULAR IN 0.9 % NACL 100 UNIT/100 ML BAG ONE (19:04)
[2020-09-22 21:24] LABS: Anion Gap 33 mmol/L (10-20); BUN (Urea Nitrogen) 51 mg/dL (8.9-20.6); Calc. Creatinine Clearance 0 mL/min (70-130); Calcium 6.9 mg/dL (7.8-10.44); Chloride 101 mmol/L (98-107); Glucose 404 mg/dL (70-105); Potassium 4.5 mmol/L (3.5-5.1); Sodium 138 mmol/L (136-145)
[2020-09-22 21:28] LABS: Carbon Dioxide 9 mmol/L (22-29)
[2020-09-22] MEDS: levETIRAcetam 500 MG TAB PO SCH (22:43)
[2020-09-22] MEDS: Apixaban 5 MG TAB PO SCH (22:43)
[2020-09-22 23:00] LABS: Anion Gap 31 mmol/L (10-20); BUN (Urea Nitrogen) 52 mg/dL (8.9-20.6); Calc. Creatinine Clearance 0 mL/min (70-130); Calcium 7.1 mg/dL (7.8-10.44); Carbon Dioxide 11 mmol/L (22-29); Chloride 102 mmol/L (98-107); Glucose 371 mg/dL (70-105); Potassium 4.1 mmol/L (3.5-5.1); Sodium 140 mmol/L (136-145)
[2020-09-22] MEDS: Potassium Chloride 40 MEQ in Sodium Chloride 0.9% 250 ML 250 ML IVPB SCH (23:24)
[2020-09-22] MEDS: Potassium Chloride 40 MEQ in Premix Bag 1 BAG IVPB SCH (23:25)
[2020-09-22] MEDS: Famotidine/PF 20 mg/2ml Vial SLOW IVP SCH (23:29)
[2020-09-23] MEDS: Ondansetron PF 4 MG/2 ML Vial IVP PRN ×3 (00:32→21:42)
[2020-09-23 00:53] LABS: SARS-CoV-2 NAA Rapid Test Not Detected (NotDetected)
[2020-09-23] MEDS ORDERED: Norepinephrine 8 MG/0.9% NS 250 ML IVPB SCH (01:00)
[2020-09-23 01:40] LABS: Anion Gap 27 mmol/L (10-20); BUN (Urea Nitrogen) 50 mg/dL (8.9-20.6); Calc. Creatinine Clearance 11 mL/min (70-130); Calcium 7.2 mg/dL (7.8-10.44); Carbon Dioxide 13 mmol/L (22-29); Chloride 103 mmol/L (98-107); Glucose 332 mg/dL (70-105); Potassium 3.8 mmol/L (3.5-5.1); Sodium 139 mmol/L (136-145)
[2020-09-23] MEDS: Potassium Chloride 40 MEQ in Sodium Chloride 0.9% 250 ML 250 ML IVPB SCH ×4 (01:49→06:05)
[2020-09-23 02:48] LABS: Anion Gap 27 mmol/L (10-20); BUN (Urea Nitrogen) 51 mg/dL (8.9-20.6); Calc. Creatinine Clearance 12 mL/min (70-130); Calcium 7.1 mg/dL (7.8-10.44); Carbon Dioxide 14 mmol/L (22-29); Chloride 103 mmol/L (98-107); Glucose 301 mg/dL (70-105); Potassium 3.7 mmol/L (3.5-5.1); Sodium 140 mmol/L (136-145)
[2020-09-23] MEDS ORDERED: Dextrose 5 %-0.45 % NaCl 1,000 ML IV PRN (04:17)
[2020-09-23 05:12] LABS: Anion Gap 24 mmol/L (10-20); BUN (Urea Nitrogen) 51 mg/dL (8.9-20.6); Calc. Creatinine Clearance 12 mL/min (70-130); Calcium 7.2 mg/dL (7.8-10.44); Carbon Dioxide 17 mmol/L (22-29); Chloride 104 mmol/L (98-107); Glucose 234 mg/dL (70-105); Sodium 141 mmol/L (136-145)
[2020-09-23 05:29] LABS: Band 9 % (5-11); Lymphocytes 10 % (21-51); MDiff Complete? YES; Mean Corpuscular HGB CONC 30.5 g/dL (32.0-36.0); Mean Corpuscular Hemoglobin 27.8 pg (27.0-31.0); Mean Platelet Volume 11.7 fL (7.4-10.4); Monocytes 5 % (0-10); Neutrophil 76 % (42-75); Platelet Count 161 thou/uL (130-400); Platelet Morphology Comment Appears Adequate; RBC Distribution Width 16.4 % (11.5-14.5); Red Blood Cell (RBC) Count 4.31 mill/uL (4.70-6.10); White Blood Cell (WBC) Count 12.5 thou/uL (4.8-10.8)
[2020-09-23] MEDS: D5 1/2 NS w/20 mEq KCL 1,000 ML IV PRN ×4 (05:53→16:47)
--- NOTE | 2020-09-23 07:11 | PDOC.FM ---
- Subjective Subjective: Clinically improved this morning. States he is feeling "fine". Denies appetite or hunger at this point. Denies any specific concerns. - Objective MAR Reviewed: Yes Vital Signs & Weight: Vital Signs (12 hours) Temp Pulse Resp BP Pulse Ox 09/23/20 07:00 98.8 F 09/23/20 04:00 98.2 F 09/22/20 23:00 97.7 F 09/22/20 22:30 99 09/22/20 22:23 97.7 F 90 21 H 126/44 L 99 Weight Admit Weight 69.9 kg Weight 69.9 kg Most Recent Monitor Data Heart Rate from ECG 90 NIBP 125/75 NIBP BP-Mean 91 Respiration from ECG 13 SpO2 100 I&O: 09/22/20 09/23/20 09/24/20 06:59 06:59 06:59 Intake Total 456.4 0 Balance 456.4 0 Result Diagrams: 09/23/20 04:07 09/23/20 12:10 Phys Exam - Physical Examination Constitutional: NAD HEENT: PERRLA, moist MMs Neck: no nodes, supple Respiratory: no wheezing, no rales, no rhonchi, clear to auscultation bilateral Cardiovascular: RRR, no significant murmur Gastrointestinal: soft Mildly TTP Musculoskeletal: no edema, pulses present Neurological: non-focal Psychiatric: normal affect Skin: no rash, normal turgor Dx/Plan (1) DKA (diabetic ketoacidoses) Code(s): E11.10 - TYPE 2 DIABETES MELLITUS WITH KETOACIDOSIS WITHOUT COMA Status: Acute Qualifiers: Diabetes mellitus type: type 1 Diabetes mellitus complication detail: without coma Qualified Code(s): E10.10 - Type 1 diabetes mellitus with ketoacidosis without coma (2) Hypokalemia Code(s): E87.6 - HYPOKALEMIA Status: Acute (3) Hypothermia Code(s): T68.XXXA - HYPOTHERMIA, INITIAL ENCOUNTER Status: Acute (4) Increased anion gap metabolic acidosis Code(s): E87.2 - ACIDOSIS Status: Acute (5) Metabolic encephalopathy Code(s): G93.41 - METABOLIC ENCEPHALOPATHY Status: Acute (6) Uremia Code(s): N19 - UNSPECIFIED KIDNEY FAILURE Status: Acute (7) Diabetes mellitus type 1 with complications Code(s): E10.8 - TYPE 1 DIABETES MELLITUS WITH UNSPECIFIED COMPLICATIONS Status: Chronic (8) ESRD (end stage renal disease) on dialysis Code(s): N18.6 - END STAGE RENAL DISEASE; Z99.2 - DEPENDENCE ON RENAL DIALYSIS Status: Chronic (9) Non-compliance with renal dialysis Code(s): Z91.15 - PATIENT'S NONCOMPLIANCE WITH RENAL DIALYSIS Status: Chronic - Plan Plan: General: - No acute distress. Neuro: DX: h/o seizure disorder and CVA x 2 - A&O x 3. - Brain CT negative for acute intracranial processes. - Continue Keppra Respiratory: - CXR: Moderately large right pleural effusion and associated atelectasis. Cardiovascular: DX: h/o DVT - On Eliquis, will continue. - Was initially hypotensive and on Levophed. Able to wean off Levophed this morning. Pressures remain stable. Gastrointestinal: - h/o severe, chronic diarrhea. Will restart Lomotil. Endocrine: DX: ESRD on HD, Type 1 DM, DKA, Anion gap metabolic acidosis, hypokalemia - Pt presented in DKA. Blood glucose of ~450s. pH 7.047. Bicarb 6.4. K 3.1. BhB 12.92. - Has responded well to potassium repletion and DKA protocol. Most recent anion gap 15 adnd BhB down to 1.4. - Repeat BMP @ noon, then administer long acting insulin and turn drip off after 1-2 hours. - Dr. Yanez, molding associate, consulted. Plan for hemodialysis today. - Dr. Moreno, exercise planner, consulted. /Renal: - Urine cultures pending Infectious: - Blood cultures growing gram negative rods and gram positive cocci. - CXR negative. - s/p 2g cefepime, 1.5g vancomycin in ED. - Continue 500mg cefepime q24hr and vancomycin pharmacy to dose. Lines/Tubes: - R Femoral central line 09/22/20. Addendum - Attending - Attending Attestation Date/Time: 09/23/20 1326 I personally evaluated the patient and discussed the management with the team. I agree with the History, Examination, Assessment and Plan documented above with any addition or exceptions noted below. ROS limited as patient does not want to talk to me. Overlap gtt and LA. Continue antibiotics as now likely bacteremic. Unclear source.
[2020-09-23] MEDS: levETIRAcetam 500 MG TAB PO SCH ×2 (07:29→20:35)
[2020-09-23] MEDS: Apixaban 5 MG TAB PO SCH ×2 (07:29→20:35)
[2020-09-23] MEDS: Famotidine/PF 20 mg/2ml Vial SLOW IVP SCH (07:29)
[2020-09-23 08:16] LABS: Magnesium 2.8 mg/dL (1.6-2.6); Phosphorus 5.9 mg/dL (2.3-4.7)
[2020-09-23] MEDS ORDERED: Vancomycin 1 GM in Premix Bag 1 BAG IVPB SCH ×3 (09:00→09:45)
[2020-09-23] MEDS ORDERED: Vancomycin HCl 750 MG in Sodium Chloride 0.9% 250 ML 250 ML IVPB SCH (09:45)
[2020-09-23] MEDS ORDERED: Vancomycin HCl 500 MG in Sodium Chloride 0.9% 100 ML IVPB SCH (09:45)
[2020-09-23] MEDS ORDERED: Vancomycin HCl 250 MG in Sodium Chloride 0.9% 100 ML IVPB SCH (09:45)
[2020-09-23] MEDS ORDERED: HOLD VANCOMYCIN FOR LEVEL >20 FS SCH (09:45)
[2020-09-23 09:46] LABS: Anion Gap 19 mmol/L (10-20); BUN (Urea Nitrogen) 51 mg/dL (8.9-20.6); Calc. Creatinine Clearance 12 mL/min (70-130); Carbon Dioxide 18 mmol/L (22-29); Chloride 106 mmol/L (98-107); Potassium 4.2 mmol/L (3.5-5.1); Sodium 139 mmol/L (136-145)
[2020-09-23 09:47] LABS: Glucose 189 mg/dL (70-105)
--- NOTE | 2020-09-23 10:21 | CON ---
DATE OF CONSULTATION: 09/23/2020 REASON FOR CONSULTATION: ICU placement. HISTORY OF PRESENT ILLNESS: This is a 39-year-old male who has end-stage renal disease and type 1 diabetes mellitus, who is noncompliant with just about everything. He presented to the emergency room yesterday with altered mental status and elevated blood sugar and some hypotension. PAST MEDICAL HISTORY: 1. Type 1 diabetes mellitus. 2. Hypertension. 3. End-stage renal disease. 4. Seizure disorder. 5. Anxiety. 6. Depression. 7. Stroke. PAST SURGICAL HISTORY: 1. Right arm fistula placement. 2. Right below-knee amputation. FAMILY MEDICAL HISTORY: Unremarkable. SOCIAL HISTORY: Smokes half pack per day. Smokes marijuana. Has used PCP in the past. REVIEW OF SYSTEMS: Unobtainable because the patient is not cooperative with examination. MEDICATIONS: Prior to admission, I reviewed the medications in the chart, suspect he was taking none, but they are listed there for review. Current inpatient medications: 1. Eliquis. 2. Cefepime. 3. Famotidine. 4. Insulin drip. 5. Keppra. 6. Ondansetron. 7. Vancomycin. PHYSICAL EXAMINATION: VITAL SIGNS: Temperature 98.8, pulse 92, blood pressure 117/66, O2 saturation 100%. He is currently on insulin drip at 6 units/hour and Levophed drip of 3 mcg/minute. HEENT: Unremarkable. NECK: No JVD. LUNGS: Clear anteriorly. CARDIOVASCULAR: S1 and S2 regular without audible murmur. ABDOMEN: Soft and nontender to palpation. EXTREMITIES: No clubbing or cyanosis. DIAGNOSTIC DATA: Chest x-ray demonstrates layering right-sided pleural effusion. He has a left subclavian/brachiocephalic stent. White blood cell count 12, hematocrit 39.3, and platelet count 161. Sodium 141, potassium 4, chloride 104, CO2 of 17, BUN 51, creatinine 8.5, and glucose 234. Beta-hydroxybutyrate was originally 12.9, now down to 1.4. COVID test was negative. ASSESSMENT: 1. Diabetic ketoacidosis. Noncompliant. Diabetic. 2. Chronic renal failure, noncompliant with dialysis. 3. Pleural effusion secondary to fluid overload. RECOMMENDATIONS: 1. The patient will need dialysis with fluid removal. 2. Empiric antibiotics and follow cultures. It looks like he has gram-negative rods growing out of his blood, so he does have septicemia. He also has some gram- positive cocci. 3. Insulin drip. 4. Dr. Moreno was seen the patient in the past. I will inform him about the patient's admission. Job ID: [id number]
[2020-09-23 12:46] LABS: Anion Gap 19 mmol/L (10-20); BUN (Urea Nitrogen) 50 mg/dL (8.9-20.6); Calc. Creatinine Clearance 12 mL/min (70-130); Calcium 6.8 mg/dL (7.8-10.44); Carbon Dioxide 18 mmol/L (22-29); Chloride 106 mmol/L (98-107); Glucose 175 mg/dL (70-105); Potassium 4.2 mmol/L (3.5-5.1); Sodium 139 mmol/L (136-145)
[2020-09-23 15:31] LABS: Vancomycin, Random 18.8 ug/mL (See Comment)
[2020-09-23 15:33] LABS: Anion Gap 18 mmol/L (10-20); BUN (Urea Nitrogen) 53 mg/dL (8.9-20.6); Calc. Creatinine Clearance 12 mL/min (70-130); Calcium 6.7 mg/dL (7.8-10.44); Carbon Dioxide 18 mmol/L (22-29); Chloride 105 mmol/L (98-107); Glucose 128 mg/dL (70-105); Potassium 4.2 mmol/L (3.5-5.1); Sodium 137 mmol/L (136-145)
[2020-09-23] MEDS: Cefepime 0.5 GM, Admixture Fee 1 EACH in Sodium Chloride 0.9% 100 ML IVPB SCH (16:36)
[2020-09-23] MEDS ORDERED: Insulin Glargine 20 UNITS in Pre-Filled Syringe 1 EACH SC SCH (17:15)
[2020-09-23 19:28] LABS: Anion Gap 12 mmol/L (10-20); BUN (Urea Nitrogen) 17 mg/dL (8.9-20.6); Calc. Creatinine Clearance 29 mL/min (70-130); Calcium 7.1 mg/dL (7.8-10.44); Carbon Dioxide 27 mmol/L (22-29); Chloride 102 mmol/L (98-107); Glucose 111 mg/dL (70-105); Potassium 3.6 mmol/L (3.5-5.1); Sodium 137 mmol/L (136-145)
[2020-09-23] MEDS: D5 1/2 NS w/20 mEq KCL 1,000 ML IV SCH ×2 (20:34→21:40)
[2020-09-23] MEDS: Diphenoxylate HCl/Atropine Tablet PO PRN (22:15)
--- NOTE | 2020-09-23 23:17 | CON ---
DATE OF CONSULTATION: CONSULTING PHYSICIAN: Beau Palmer MD. REQUESTING PHYSICIAN: Dr. Newby. REASON FOR CONSULTATION: Need for maintenance hemodialysis. IMPRESSION: 1. End-stage renal disease due to severe medical noncompliance. 2. Diabetes mellitus with recurrent diabetic ketoacidosis on admission. 3. Malnutrition, failure to thrive. PLAN: 1. The patient to be dialyzed today. 2. Counseling on the need to stay compliant with dialysis. 3. We will start this patient on appetite stimulants. 4. Further management to be dependent on the clinical course. HISTORY OF PRESENT ILLNESS: A 39-year-old gentleman with end-stage renal disease, hemodialysis dependent, severely medically noncompliant, who just got discharged from the hospital and went home and has not be eating, was found in a very solid state at home and presented here where patient was noted to have a severely elevated blood sugar as well as hypotension with mental status change. The patient got admitted to ICU and the need for renal replacement therapy necessitated this renal consultation. PAST MEDICAL HISTORY: Significant for type 1 diabetes, hypertension, seizure disorder, anxiety, depression, stroke, end-stage renal disease. FAMILY HISTORY: Nonsignificantly related to present illness. SOCIAL HISTORY: Significant for marijuana usage. REVIEW OF SYSTEMS: As documented in the body of the history, but highly limited given the communication gap in this patient. MEDICATIONS: Reviewed as documented on [facility]. PHYSICAL EXAMINATION: GENERAL: Patient was found to be very ill looking, noted with the following vital signs. VITAL SIGNS: Heart rate of 91, blood pressure 164/107, respiratory rate of 35, O2 sat of 94%. HEENT EXAMINATION: Unremarkable. CARDIOVASCULAR SYSTEM: First and second heart sounds were heard. RESPIRATORY SYSTEM: Clear to auscultation. DIGESTIVE SYSTEM: Revealed a benign abdomen. EXTREMITIES: No peripheral edema. SKIN EXAMINATION: No new gross rash. LYMPHATICS: No peripheral lymphadenopathy. SUMMARY: A 39-year-old gentleman with end-stage renal disease, hemodialysis dependent, presented here with mental status change. Thank you for this consultation. We will follow with you. Please begin to deescalate all the IV fluids and all the potassium supplementations. Job ID: [id number]
[2020-09-24] MEDS ORDERED: Dextrose 50% Abboject 50 ML SYRINGE ONE ×2 (02:07→08:13)
[2020-09-24] MEDS ORDERED: Dextrose 50% Abboject 50 ML SYRINGE SLOW IVP SCH (02:45)
[2020-09-24] MEDS ORDERED: Dextrose 5 %-0.45 % NaCl 1,000 ML IV SCH (05:15)
[2020-09-24 05:45] LABS: HBSAg Index 0.16 S/CO (0-0.99); Hep B Surf Ag Non-Reactive S/CO (NonReactive)
[2020-09-24 06:19] LABS: Anion Gap 13 mmol/L (10-20); BUN (Urea Nitrogen) 24 mg/dL (8.9-20.6); Calc. Creatinine Clearance 20 mL/min (70-130); Calcium 7.1 mg/dL (7.8-10.44); Carbon Dioxide 26 mmol/L (22-29); Chloride 103 mmol/L (98-107); Glucose 61 mg/dL (70-105); Potassium 3.8 mmol/L (3.5-5.1); Sodium 138 mmol/L (136-145)
[2020-09-24] MEDS ORDERED: Dextrose 10% in Water 1,000 ML IV SCH (06:45)
--- NOTE | 2020-09-24 07:36 | PDOC.FM ---
- Subjective Subjective: Doing better this morning. States that he is "starving". He did not eat a lot yesterday after the insulin gtt was turned off. He does not feel when he is hypoglycemic. We discussed the potential of being discharged to SNF or NH and he says he will consider it. I iterated how often he is in the hospital means he doesn't get to stay home very long. He did stay in a SNF after his stroke and states it was a nice place. - Objective MAR Reviewed: Yes Vital Signs & Weight: Vital Signs (12 hours) Temp Pulse Ox 09/24/20 04:00 97.7 F 09/24/20 00:00 98.1 F 09/23/20 20:00 97.9 F 98 Weight Admit Weight 69.9 kg Weight 69.9 kg Most Recent Monitor Data Heart Rate from ECG 92 NIBP 111/85 NIBP BP-Mean 93 Respiration from ECG 20 SpO2 100 I&O: 09/23/20 09/24/20 09/25/20 06:59 06:59 06:59 Intake Total 456.4 4309.2 Output Total 0 Balance 456.4 4309.2 Result Diagrams: 09/23/20 04:07 09/24/20 04:50 Phys Exam - Physical Examination Constitutional: NAD HEENT: PERRLA, moist MMs Neck: no nodes, supple Respiratory: no wheezing, no rales, no rhonchi, clear to auscultation bilateral Cardiovascular: RRR Gastrointestinal: soft Musculoskeletal: no edema, pulses present Neurological: non-focal Psychiatric: normal affect Skin: no rash, normal turgor Dx/Plan (1) DKA (diabetic ketoacidoses) Code(s): E11.10 - TYPE 2 DIABETES MELLITUS WITH KETOACIDOSIS WITHOUT COMA Status: Acute Qualifiers: Diabetes mellitus type: type 1 Diabetes mellitus complication detail: without coma Qualified Code(s): E10.10 - Type 1 diabetes mellitus with ketoacidosis without coma (2) Hypokalemia Code(s): E87.6 - HYPOKALEMIA Status: Acute (3) Hypothermia Code(s): T68.XXXA - HYPOTHERMIA, INITIAL ENCOUNTER Status: Acute (4) Increased anion gap metabolic acidosis Code(s): E87.2 - ACIDOSIS Status: Acute (5) Metabolic encephalopathy Code(s): G93.41 - METABOLIC ENCEPHALOPATHY Status: Acute (6) Uremia Code(s): N19 - UNSPECIFIED KIDNEY FAILURE Status: Acute (7) Diabetes mellitus type 1 with complications Code(s): E10.8 - TYPE 1 DIABETES MELLITUS WITH UNSPECIFIED COMPLICATIONS Status: Chronic (8) ESRD (end stage renal disease) on dialysis Code(s): N18.6 - END STAGE RENAL DISEASE; Z99.2 - DEPENDENCE ON RENAL DIALYSIS Status: Chronic (9) Non-compliance with renal dialysis Code(s): Z91.15 - PATIENT'S NONCOMPLIANCE WITH RENAL DIALYSIS Status: Chronic - Plan Plan: General: - No acute distress. Neuro: DX: h/o seizure disorder and CVA x 2 - A&O x 3. - Brain CT negative for acute intracranial processes. - Continue Keppra Respiratory: - CXR: Moderately large right pleural effusion and associated atelectasis. Cardiovascular: DX: h/o DVT - On Eliquis, will continue. - Was initially hypotensive and on Levophed. Able to wean off Levophed yesterday. Pressures remain stable. Gastrointestinal: - h/o severe, chronic diarrhea. Will restart Lomotil. Endocrine: DX: ESRD on HD, Type 1 DM, DKA, Anion gap metabolic acidosis, hypokalemia - Pt presented in DKA. (Blood glucose of ~450s. pH 7.047. Bicarb 6.4. K 3.1. BhB 12.92) - Dr. Yanez, utility mechanic, consulted. Dialyzed 09/23/20. - Dr. Moreno, mop handle assembler, consulted. - Gap is closed, received Lantus 20u 1700 last night. Has had hypoglycemia this morning, however he has not had a significant amount of oral intake despite RN encouraging diet. Will give D10 prn until he is eating more. /Renal: - Urine cultures pending Infectious: - Bacteremia: Blood cultures growing gram negative rods and gram positive cocci. - CXR negative. - s/p 2g cefepime, 1.5g vancomycin in ED. - Continue 500mg cefepime q24hr and vancomycin pharmacy to dose. Lines/Tubes: - R Femoral central line 09/22/20. PCP: RANULFO Hardwick Code: Full Addendum - Attending - Attending Attestation Date/Time: 09/24/20 1038 I personally evaluated the patient and discussed the management with the team. I agree with the History, Examination, Assessment and Plan documented above with any addition or exceptions noted below. Doing better this AM and conversant. No f/c. No n/v. No cp/sob. Encourage PO and follow.
[2020-09-24] MEDS: Apixaban 5 MG TAB PO SCH ×2 (08:15→21:44)
[2020-09-24] MEDS: levETIRAcetam 500 MG TAB PO SCH ×2 (08:16→20:45)
[2020-09-24] MEDS: Famotidine/PF 20 mg/2ml Vial SLOW IVP SCH (08:16)
[2020-09-24] MEDS: Dronabinol 2.5 MG CAP PO SCH ×2 (10:53→17:04)
--- NOTE | 2020-09-24 17:26 | PRG ---
DATE OF SERVICE: 09/24/2020 OBJECTIVE: VITAL SIGNS: The patient noted with the following vital signs. Blood pressure 150/91, pulse 84, O2 saturations 100%. HEENT: Unremarkable. CARDIOVASCULAR SYSTEM: First and second heart sounds were heard. RESPIRATORY SYSTEM: Clear to auscultation. DIGESTIVE SYSTEM: Revealed a benign abdomen. EXTREMITIES: No peripheral edema. SKIN: No new gross rash. LYMPHATICS: No peripheral lymphadenopathy. IMPRESSION: 1. End-stage renal disease. 2. Severe medical noncompliance. 3. Failure to thrive. 4. Type 1 diabetes mellitus. 5. Hypoglycemia. PLAN: 1. The patient is started on appetite stimulant Marinol. 2. The patient dialyzed yesterday. We will continue with this current schedule. 3. Further management to be dependent on the clinical course. Job ID: [id number]
[2020-09-24] MEDS: Cefepime 0.5 GM, Admixture Fee 1 EACH in Sodium Chloride 0.9% 100 ML IVPB SCH (18:11)
[2020-09-24] MEDS: Insulin Glargine 10 UNITS in Pre-Filled Syringe SC SCH (20:43)
[2020-09-24] MEDS: Diphenoxylate HCl/Atropine Tablet PO PRN (20:45)
--- NOTE | 2020-09-25 06:42 | PDOC.FM ---
- Subjective Subjective: Doing well this morning. States he has not had breakfast. He did not sleep well last night and is very sleepy this morning. Last blood glucose was WNL within last hour. - Objective MAR Reviewed: Yes Vital Signs & Weight: Vital Signs (12 hours) Temp Pulse Resp BP Pulse Ox 09/25/20 04:00 98.2 F 95 16 128/85 94 L 09/25/20 00:00 97.5 F L 84 16 121/58 L 97 09/24/20 20:15 94 L 09/24/20 20:00 96.7 F L 82 16 147/75 H 94 L Weight Admit Weight 69.9 kg Weight 71.696 kg Most Recent Monitor Data Heart Rate from ECG 84 NIBP 152/91 NIBP BP-Mean 111 Respiration from ECG 17 SpO2 100 I&O: 09/23/20 09/24/20 09/25/20 06:59 06:59 06:59 Intake Total 456.4 4309.2 2135 Output Total 0 Balance 456.4 4309.2 2135 Result Diagrams: 09/25/20 09:05 09/25/20 08:30 Phys Exam - Physical Examination Constitutional: NAD HEENT: PERRLA, moist MMs Neck: no nodes, supple Respiratory: no wheezing, no rales, no rhonchi, clear to auscultation bilateral Cardiovascular: RRR Gastrointestinal: soft, non-tender Musculoskeletal: no edema, pulses present Neurological: non-focal Psychiatric: A&O x 3 Skin: no rash Dx/Plan (1) DKA (diabetic ketoacidoses) Code(s): E11.10 - TYPE 2 DIABETES MELLITUS WITH KETOACIDOSIS WITHOUT COMA Status: Acute Qualifiers: Diabetes mellitus type: type 1 Diabetes mellitus complication detail: without coma Qualified Code(s): E10.10 - Type 1 diabetes mellitus with ketoacidosis without coma (2) Hypokalemia Code(s): E87.6 - HYPOKALEMIA Status: Acute (3) Hypothermia Code(s): T68.XXXA - HYPOTHERMIA, INITIAL ENCOUNTER Status: Acute (4) Increased anion gap metabolic acidosis Code(s): E87.2 - ACIDOSIS Status: Acute (5) Metabolic encephalopathy Code(s): G93.41 - METABOLIC ENCEPHALOPATHY Status: Acute (6) Uremia Code(s): N19 - UNSPECIFIED KIDNEY FAILURE Status: Acute (7) Diabetes mellitus type 1 with complications Code(s): E10.8 - TYPE 1 DIABETES MELLITUS WITH UNSPECIFIED COMPLICATIONS Status: Chronic (8) ESRD (end stage renal disease) on dialysis Code(s): N18.6 - END STAGE RENAL DISEASE; Z99.2 - DEPENDENCE ON RENAL DIALYSIS Status: Chronic (9) Non-compliance with renal dialysis Code(s): Z91.15 - PATIENT'S NONCOMPLIANCE WITH RENAL DIALYSIS Status: Chronic - Plan Plan: General: - No acute distress. Neuro: DX: h/o seizure disorder and CVA x 2 - A&O x 3. - Brain CT negative for acute intracranial processes. - Continue Keppra Respiratory: - CXR: Moderately large right pleural effusion and associated atelectasis. Cardiovascular: DX: h/o DVT - On Eliquis, will continue. Gastrointestinal: - h/o severe, chronic diarrhea. Will restart Lomotil. Endocrine: DX: ESRD on HD, Type 1 DM, DKA, Anion gap metabolic acidosis, hypokalemia - Pt presented in DKA. (Blood glucose of ~450s. pH 7.047. Bicarb 6.4. K 3.1. BhB 12.92) - Dr. Yanez, data input clerk, consulted. Dialyzed 09/23/20. Will continue regular dialysis schedule. - Restarted home dose of Lantus 20 HS on 09/23, however patient experienced several episodes of hypoglycemia. Last night, due to persistently hypoglycemia his Lantus was held. - Discussed d/c plan to SNF vs NH. Patient is agreeable at this time. Awaiting CM recs. /Renal: - See above. Infectious: - Bacteremia: Blood cultures growing gram negative rods and gram positive cocci, sweet-sensitive Proteus. Will deescalate antibiotics today. Plan to remove central line as well. - CXR negative. - s/p 2g cefepime, 1.5g vancomycin in ED. - Continue 500mg cefepime q24hr and vancomycin pharmacy to dose. Lines/Tubes: - R Femoral central line 09/22/20. PCP: RANULFO Hardwick Code: Full Addendum - Attending - Attending Attestation Date/Time: 09/25/20 [id number] I personally evaluated the patient and discussed the management with Dr. Leos. I agree with the History, Examination, Assessment and Plan documented above with any addition or exceptions noted below. Denies cp/sob/n/v/f/c. Monitor sugars. Transition to PO antibiotics. Work on placement.
[2020-09-25] MEDS: Famotidine/PF 20 mg/2ml Vial SLOW IVP SCH (08:27)
[2020-09-25] MEDS: levETIRAcetam 500 MG TAB PO SCH ×2 (08:27→20:14)
[2020-09-25] MEDS: Apixaban 5 MG TAB PO SCH ×2 (08:27→20:15)
[2020-09-25] MEDS: Dronabinol 2.5 MG CAP PO SCH ×2 (08:48→18:14)
[2020-09-25 09:06] LABS: Anion Gap 15 mmol/L (10-20); BUN (Urea Nitrogen) 30 mg/dL (8.9-20.6); Calc. Creatinine Clearance 17 mL/min (70-130); Calcium 7.1 mg/dL (7.8-10.44); Carbon Dioxide 23 mmol/L (22-29); Chloride 103 mmol/L (98-107); Glucose 96 mg/dL (70-105); Potassium 4.4 mmol/L (3.5-5.1); Sodium 137 mmol/L (136-145)
[2020-09-25 09:20] LABS: Vancomycin, Random 16.2 ug/mL (See Comment)
[2020-09-25 09:48] LABS: #Lymphocytes 0.6 thou/uL (1.20-3.40); #Monocytes 0.6 thou/uL (0.11-0.59); #Neutrophils 4.9 thou/uL (1.40-6.50); %Basophils 0.6 % (0.0-1.0); %Eosinophils 0.8 % (0.0-10.0); %Lymphocytes 10.1 % (21.0-51.0); %Monocytes 9.8 % (0.0-10.0); %Neutrophils 78.8 % (42.0-75.0); Hemoglobin 9.6 g/dL (14.0-18.0); Hypochromia SLIGHT = 6-15 cells (100X) (0-5/hpf); MDiff Complete? YES; Mean Corpuscular HGB CONC 30.8 g/dL (32.0-36.0); Mean Corpuscular Hemoglobin 28.4 pg (27.0-31.0); Mean Corpuscular Volume 92.3 fL (78.0-98.0); Mean Platelet Volume 11.4 fL (7.4-10.4); Platelet Count 85 thou/uL (130-400); Platelet Morphology Comment Appears Decreased; Polychromasia SLIGHT = 2-3 cells (100X) (0-2/hpf); RBC Distribution Width 16.4 % (11.5-14.5); Red Blood Cell (RBC) Count 3.39 mill/uL (4.70-6.10); Target Cells SLIGHT = 2-5 cells (100X) (0-1/hpf); White Blood Cell (WBC) Count 6.2 thou/uL (4.8-10.8)
[2020-09-25 12:03] VITALS: BMI 22.0
--- NOTE | 2020-09-25 13:23 | PQF ---
CLINICAL DOCUMENTATION CLARIFICATION FORM: Dear / Attending Dr. Yoon Date / Time: 09/25/2020 Please exercise your independent, professional judgment in responding to the clarification form. Clinical indicators are provided on the bottom of this form for your review. Please check appropriate box(es): [ x ] Sepsis due to: Gram negative bacteremia [ ] Severe sepsis with associated acute organ dysfunction: [ ] Encephalopathy (metabolic) (septic) [ ] Additional/Other: please specify: [ ] Septic Shock [ ] Localized infection without sepsis [ ] Other diagnosis [ ] Unable to determine In addition, please specify: Present on Admission (POA): [ x ] Yes [ ] No [ ] Unable to determine For continuity of documentation, please document condition throughout progress notes and discharge summary. Thank You. To be completed by CDI/Coding staff for physician review: CLINICAL INDICATORS - SIGNS / SYMPTOMS / LABS / RESULTS AND LOCATION IN MR *ER Record 09/22: VS: BP 115/26 (lying) MAP 55, pulse 81 Doctor Notes: Critical Care: severe DKA with AMS, severe hypotension requiring aggressive fluid resuscitation, vasopressors. *H&P 09/22 ([facility]) A/P: DKA. Hypokalemia. Hypothermia. Increased anion gap metabolic acidosis. Metabolic encephalopathy Attending (Karrie): PT with DKA, recurrent, from nonadherence to medications and nonadherence to dialysis, with hypokalemia and hypothermia and shock with possible arrhythmia. *09/23 Consult (Abdulkadir) Recommendations: It looks like he has gram-negative rods growing out of his blood, so he does have septicemia. He also has some gram-positive cocci. *09/24 pn ([facility]) Infectious: Bacteremia: Blood cx's growing gram negative rods and gram positive cocci. RISK FACTORS / RESULTS AND LOCATION IN MR *H&P 09/22 ([facility]) PMHx: DM I, HTN, ESRD on HD, sz disorder, R BKA. A/P: DKA. Hypokalemia. Hypothermia. Metabolic encephalopathy *09/24 pn ([facility]) Infectious: Bacteremia: TREATMENTS / RESULTS AND LOCATION IN MR *ER Record 09/22: Doctor Notes Critical Care: severe hypotension requiring aggressive fluid resuscitation, vasopressors. *H&P 09/22 (Attending-Karrie) taper levophed for MAP > 65 09/24 pn ([facility]) S/p 2g cefepime, 1.5g vancmycin in ED. Continue 500mg cefepime q24 hr and vancomycin Pharmacy to dose. Thank you, Agnieszka Hernadez RN, [email or web address] This is a permanent part of the Medical Record [facility]
[2020-09-25] MEDS: Cefdinir 300 MG CAP PO SCH (14:13)
--- NOTE | 2020-09-25 17:16 | PRG ---
DATE OF SERVICE: 09/25/2020 SUBJECTIVE: The patient is seen with no new complaint with the following vital signs. OBJECTIVE: VITAL SIGNS: Afebrile, temperature 98.2, pulse 95, respiratory rate 16, blood pressure 128/85, O2 saturation of 94%. HEENT: Unremarkable. CARDIOVASCULAR SYSTEM: First and second heart sounds were heard. RESPIRATORY SYSTEM: Clear to auscultation. DIGESTIVE SYSTEM: Revealed a benign abdomen. EXTREMITIES: No peripheral edema. SKIN: No new gross rash. LYMPHATICS: No peripheral lymphadenopathy. IMPRESSION: 1. End-stage renal disease, on dialysis. 2. Medical noncompliance. 3. Type 1 diabetes with current metabolic acidosis. 4. Failure to thrive. PLAN: 1. The patient to be dialyzed today in accordance with his scheduled Monday, Monday, Monday dialysis. 2. Counseling on medical compliance. 3. Further management will be dependent on the clinical course. Job ID: [id number]
[2020-09-25] MEDS: Insulin Glargine 10 UNITS in Pre-Filled Syringe SC SCH (20:18)
[2020-09-25] MEDS: Diphenoxylate HCl/Atropine Tablet PO PRN (20:40)
--- NOTE | 2020-09-26 05:38 | PDOC.FM ---
- Subjective Subjective: Doing well this morning, more conversant. States he slept better last night. He is now stating he does not want to be discharged to [place], he wants to go home. - Objective MAR Reviewed: Yes Vital Signs & Weight: Vital Signs (12 hours) Temp Pulse Resp BP Pulse Ox 09/26/20 04:00 99.7 F H 91 16 100/52 L 97 09/26/20 00:00 99.8 F H 97 16 103/58 L 93 L 09/25/20 20:00 99.1 F 101 H 16 121/63 96 Weight Admit Weight 69.9 kg Weight 71.696 kg Most Recent Monitor Data Heart Rate from ECG 84 NIBP 152/91 NIBP BP-Mean 111 Respiration from ECG 17 SpO2 100 I&O: 09/24/20 09/25/20 09/26/20 06:59 06:59 06:59 Intake Total 4309.2 2135 300 Output Total 0 Balance 4309.2 2135 300 Result Diagrams: 09/26/20 06:23 09/26/20 06:23 Phys Exam - Physical Examination Constitutional: NAD HEENT: PERRLA, moist MMs Neck: no nodes, supple Respiratory: no wheezing, no rales, no rhonchi, clear to auscultation bilateral Cardiovascular: RRR, no significant murmur Gastrointestinal: soft, non-tender Musculoskeletal: no edema Neurological: non-focal Psychiatric: normal affect Skin: no rash Dx/Plan (1) DKA (diabetic ketoacidoses) Code(s): E11.10 - TYPE 2 DIABETES MELLITUS WITH KETOACIDOSIS WITHOUT COMA Status: Resolved Qualifiers: Diabetes mellitus type: type 1 Diabetes mellitus complication detail: without coma Qualified Code(s): E10.10 - Type 1 diabetes mellitus with ketoacidosis without coma (2) Hypokalemia Code(s): E87.6 - HYPOKALEMIA Status: Resolved (3) Hypothermia Code(s): T68.XXXA - HYPOTHERMIA, INITIAL ENCOUNTER Status: Resolved (4) Increased anion gap metabolic acidosis Code(s): E87.2 - ACIDOSIS Status: Resolved (5) Metabolic encephalopathy Code(s): G93.41 - METABOLIC ENCEPHALOPATHY Status: Resolved (6) Uremia Code(s): N19 - UNSPECIFIED KIDNEY FAILURE Status: Acute (7) Diabetes mellitus type 1 with complications Code(s): E10.8 - TYPE 1 DIABETES MELLITUS WITH UNSPECIFIED COMPLICATIONS Status: Chronic (8) ESRD (end stage renal disease) on dialysis Code(s): N18.6 - END STAGE RENAL DISEASE; Z99.2 - DEPENDENCE ON RENAL DIALYSIS Status: Chronic (9) Non-compliance with renal dialysis Code(s): Z91.15 - PATIENT'S NONCOMPLIANCE WITH RENAL DIALYSIS Status: Chronic - Plan Plan: General: - No acute distress. Neuro: DX: h/o seizure disorder and CVA x 2 - A&O x 3. - Brain CT negative for acute intracranial processes. - Continue Keppra Respiratory: - CXR: Moderately large right pleural effusion and associated atelectasis. This finding is on many prior CXR. Cardiovascular: DX: h/o DVT - On Eliquis, will continue. Gastrointestinal: - h/o severe, chronic diarrhea. Will restart Lomotil. Endocrine: DX: ESRD on HD, Type 1 DM, DKA, Anion gap metabolic acidosis, hypokalemia - Pt presented in DKA. (Blood glucose of ~450s. pH 7.047. Bicarb 6.4. K 3.1. BhB 12.92) - Dr. Yanez, animal husbandry worker, consulted. Dialyzed 09/23/20. Will continue regular dialysis schedule. - Restarted home dose of Lantus 20 HS on 09/23, however patient experienced several episodes of hypoglycemia. Decreased evening dose to 10u last night and will monitor sugars today. - He is now refusing d/c to NH. Will keep inpatient and monitor blood sugar through weekend until he is stable for d/c. /Renal: - See above. Infectious: - Bacteremia - Proteus species. 2nd cultures pending - CXR negative. - s/p 2g cefepime, 1.5g vancomycin in ED. - [X] 500mg cefepime q24hr and vancomycin pharmacy to dose. - Deescalated to 300mg Omnicef po q2d (renally dosed for ESRD w/ HD) Lines/Tubes: [x] R Femoral central line 09/22/20 - 09/25/20. PCP: RANULFO Hardwick Code: Full Addendum - Attending - Attending Attestation Date/Time: 09/26/20 3130 I personally evaluated the patient and discussed the management with Dr. Newby. I agree with the History, Examination, Assessment and Plan documented above with any addition or exceptions noted below. DKA-resolved Uncontrolled T1DM- had hypoglycemia yesterday so had to hold lantus. Restarted last night Proteus bacteremia- on po omnicef after dialysis ESRD- dialysis M, W, F Denies SNF placement and now wants to go home. Patient needs a few more days to ensure he gets his sugars stabalized.
[2020-09-26] MEDS: Dronabinol 2.5 MG CAP PO SCH ×2 (06:19→18:03)
[2020-09-26 06:51] LABS: Anion Gap 17 mmol/L (10-20); BUN (Urea Nitrogen) 31 mg/dL (8.9-20.6); Calc. Creatinine Clearance 21 mL/min (70-130); Calcium 7.2 mg/dL (7.8-10.44); Carbon Dioxide 24 mmol/L (22-29); Chloride 101 mmol/L (98-107); Glucose 319 mg/dL (70-105); Potassium 4.6 mmol/L (3.5-5.1); Sodium 137 mmol/L (136-145)
[2020-09-26 07:20] LABS: #Eosinphils 0.1 thou/uL (0.0-0.7); #Lymphocytes 0.9 thou/uL (1.20-3.40); #Monocytes 0.7 thou/uL (0.11-0.59); #Neutrophils 5.2 thou/uL (1.40-6.50); %Basophils 0.3 % (0.0-1.0); %Eosinophils 0.8 % (0.0-10.0); %Lymphocytes 13.2 % (21.0-51.0); %Monocytes 9.5 % (0.0-10.0); %Neutrophils 76.1 % (42.0-75.0); Mean Corpuscular HGB CONC 30.5 g/dL (32.0-36.0); Mean Corpuscular Hemoglobin 28.3 pg (27.0-31.0); Mean Corpuscular Volume 92.7 fL (78.0-98.0); Mean Platelet Volume 11.8 fL (7.4-10.4); Platelet Count 95 thou/uL (130-400); RBC Distribution Width 16.1 % (11.5-14.5); Red Blood Cell (RBC) Count 3.19 mill/uL (4.70-6.10); White Blood Cell (WBC) Count 6.8 thou/uL (4.8-10.8)
[2020-09-26] MEDS ORDERED: Dextrose 5% in Water 1,000 ML IV PRN (08:30)
[2020-09-26] MEDS ORDERED: Dextrose 50% Abboject 50 ML SYRINGE SLOW IVP PRN (08:30)
[2020-09-26] MEDS ORDERED: HumaLOG 300 UNITS/3 ML VIAL SC PRN (08:30)
[2020-09-26] MEDS: Famotidine/PF 20 mg/2ml Vial SLOW IVP SCH (08:47)
[2020-09-26] MEDS: levETIRAcetam 500 MG TAB PO SCH ×2 (08:47→20:27)
[2020-09-26] MEDS: Apixaban 5 MG TAB PO SCH ×2 (08:47→20:27)
[2020-09-26] MEDS: HumaLOG 300 UNITS/3 ML VIAL SC PRN ×2 (13:12→20:41)
[2020-09-26] MEDS: Insulin Glargine 15 UNITS in Pre-Filled Syringe 1 EACH SC SCH (20:26)
[2020-09-27] MEDS: HumaLOG 300 UNITS/3 ML VIAL SC PRN ×3 (00:25→16:42)
--- NOTE | 2020-09-27 05:51 | PDOC.FM ---
- Subjective Subjective: Doing well this morning. States he was able to sleep last night. States when he is home, his mother administers his insulin and he does not know his dose or how often. - Objective MAR Reviewed: Yes Vital Signs & Weight: Vital Signs (12 hours) Temp Pulse Resp BP Pulse Ox 09/27/20 00:00 98.2 F 88 20 115/61 97 09/26/20 20:00 97.9 F 83 18 118/60 95 Weight Admit Weight 69.9 kg Weight 71.696 kg Most Recent Monitor Data Heart Rate from ECG 84 NIBP 152/91 NIBP BP-Mean 111 Respiration from ECG 17 SpO2 100 I&O: 09/25/20 09/26/20 09/27/20 06:59 06:59 06:59 Intake Total 2135 700 240 Balance 2135 700 240 Result Diagrams: 09/26/20 06:23 09/26/20 06:23 Phys Exam - Physical Examination Constitutional: NAD HEENT: PERRLA, moist MMs Neck: no nodes, supple Respiratory: no wheezing, no rales, no rhonchi, clear to auscultation bilateral Cardiovascular: RRR Gastrointestinal: soft, non-tender Musculoskeletal: no edema Neurological: non-focal Psychiatric: normal affect, A&O x 3 Skin: no rash, normal turgor Dx/Plan (1) DKA (diabetic ketoacidoses) Code(s): E11.10 - TYPE 2 DIABETES MELLITUS WITH KETOACIDOSIS WITHOUT COMA Status: Resolved Qualifiers: Diabetes mellitus type: type 1 Diabetes mellitus complication detail: without coma Qualified Code(s): E10.10 - Type 1 diabetes mellitus with ketoacidosis without coma (2) Hypokalemia Code(s): E87.6 - HYPOKALEMIA Status: Resolved (3) Hypothermia Code(s): T68.XXXA - HYPOTHERMIA, INITIAL ENCOUNTER Status: Resolved (4) Increased anion gap metabolic acidosis Code(s): E87.2 - ACIDOSIS Status: Resolved (5) Metabolic encephalopathy Code(s): G93.41 - METABOLIC ENCEPHALOPATHY Status: Resolved (6) Uremia Code(s): N19 - UNSPECIFIED KIDNEY FAILURE Status: Acute (7) Diabetes mellitus type 1 with complications Code(s): E10.8 - TYPE 1 DIABETES MELLITUS WITH UNSPECIFIED COMPLICATIONS Status: Chronic (8) ESRD (end stage renal disease) on dialysis Code(s): N18.6 - END STAGE RENAL DISEASE; Z99.2 - DEPENDENCE ON RENAL DIALYSIS Status: Chronic (9) Non-compliance with renal dialysis Code(s): Z91.15 - PATIENT'S NONCOMPLIANCE WITH RENAL DIALYSIS Status: Chronic - Plan Plan: General: - No acute distress. Neuro: DX: h/o seizure disorder and CVA x 2 - A&O x 3. - Brain CT negative for acute intracranial processes. - Continue Keppra Respiratory: - CXR: Moderately large right pleural effusion and associated atelectasis. This finding is on many prior CXR. Cardiovascular: DX: h/o DVT - On Eliquis, will continue. Gastrointestinal: - h/o severe, chronic diarrhea. Will restart Lomotil. Endocrine: DX: ESRD on HD, Type 1 DM, DKA, Anion gap metabolic acidosis, hypokalemia - Pt presented in DKA. (Blood glucose of ~450s. pH 7.047. Bicarb 6.4. K 3.1. BhB 12.92) - Dr. Yanez, optical instrument assembler, consulted. Dialyzed 09/23/20. Will continue regu lar dialysis schedule. - Restarted home dose of Lantus 20 HS on 09/23, however patient experienced s everal episodes of hypoglycemia. Gave 15u last night. Will monitor sugars today and consider d/c home. - He is now refusing d/c to NH. Will keep inpatient and monitor blood sugar through weekend until he is stable for d/c. Will contact patient's mother to discuss D/C. /Renal: - See above. Infectious: - Bacteremia - Proteus species. 2nd cultures pending - CXR negative. - s/p 2g cefepime, 1.5g vancomycin in ED. - [X] 500mg cefepime q24hr and vancomycin pharmacy to dose. - Deescalated to 300mg Omnicef po q2d (renally dosed for ESRD w/ HD) Lines/Tubes: [x] R Femoral central line 09/22/20 - 09/25/20. PCP: RANULFO Hardwick Code: Full Addendum - Attending - Attending Attestation Date/Time: 09/27/20 1006 I personally evaluated the patient and discussed the management with Dr. Newby I agree with the History, Examination, Assessment and Plan documented above with any addition or exceptions noted below. Patient with multiple hospitalizations centered around noncompliance (DKA from missed insulin, hyperkalemia from missed dialysis). Long discussion with patient today about how to help keep him from hospitalizations and recommended that he go to SNF for reconditioning and to get on the right track. He declines and states that only he can keep himself on the right track and that he wants to do that at home. Will d/c tomorrow after dialysis with po omnicef for bacteremia and new insulin regimen.
[2020-09-27] MEDS: levETIRAcetam 500 MG TAB PO SCH ×2 (08:34→20:37)
[2020-09-27] MEDS: Apixaban 5 MG TAB PO SCH ×2 (08:34→20:37)
[2020-09-27] MEDS: Famotidine/PF 20 mg/2ml Vial SLOW IVP SCH (08:34)
[2020-09-27] MEDS: Dronabinol 2.5 MG CAP PO SCH ×2 (08:34→16:42)
[2020-09-27] MEDS: Cefdinir 300 MG CAP PO SCH (14:26)
[2020-09-27] MEDS: Insulin Glargine 15 UNITS in Pre-Filled Syringe 1 EACH SC SCH (20:37)
--- NOTE | 2020-09-28 06:39 | PRG ---
DATE OF SERVICE: 09/27/2020 SUBJECTIVE: Noted with the following vital signs. OBJECTIVE: VITAL SIGNS: Temperature 98.4, pulse 95, respiratory rate of 18, O2 saturation 97%, blood pressure 144/79. HEENT: Unremarkable. CARDIOVASCULAR: First and second heart sounds were heard. RESPIRATORY: Clear to auscultation. DIGESTIVE: Revealed a benign abdomen with positive bowel sounds. EXTREMITIES: No peripheral edema. SKIN: No new gross rash. LYMPHATICS: No peripheral lymphadenopathy. IMPRESSION: 1. End-stage renal disease, on dialysis, on Monday, Monday, and Monday schedule. 2. Severe medical noncompliance. 3. Type-1 diabetes mellitus with recurrent diabetic ketoacidosis. 4. Failure to thrive. PLAN: 1. The patient to continue with Monday, Monday, and Monday schedule dialysis. 2. Further management will be dependent on the clinical course. 3. Disposition planning is per the primary team. Job ID: [id number]
--- NOTE | 2020-09-28 07:38 | PDOC.FM ---
- Subjective Subjective: Doing well this morning. Eating breakfast. - Objective MAR Reviewed: Yes Vital Signs & Weight: Weight Admit Weight 69.9 kg Weight 71.696 kg Most Recent Monitor Data Heart Rate from ECG 84 NIBP 152/91 NIBP BP-Mean 111 Respiration from ECG 17 SpO2 100 I&O: 09/27/20 09/28/20 09/29/20 06:59 06:59 06:59 Intake Total 240 880 Balance 240 880 Result Diagrams: 09/26/20 06:23 09/26/20 06:23 Phys Exam - Physical Examination Constitutional: NAD HEENT: PERRLA, moist MMs Neck: no nodes Respiratory: no wheezing, no rales, no rhonchi, clear to auscultation bilateral Cardiovascular: RRR Gastrointestinal: soft, non-tender Musculoskeletal: no edema Neurological: non-focal Psychiatric: normal affect Dx/Plan (1) DKA (diabetic ketoacidoses) Code(s): E11.10 - TYPE 2 DIABETES MELLITUS WITH KETOACIDOSIS WITHOUT COMA Status: Resolved Qualifiers: Diabetes mellitus type: type 1 Diabetes mellitus complication detail: without coma Qualified Code(s): E10.10 - Type 1 diabetes mellitus with ketoacidosis without coma (2) Hypokalemia Code(s): E87.6 - HYPOKALEMIA Status: Resolved (3) Hypothermia Code(s): T68.XXXA - HYPOTHERMIA, INITIAL ENCOUNTER Status: Resolved (4) Increased anion gap metabolic acidosis Code(s): E87.2 - ACIDOSIS Status: Resolved (5) Metabolic encephalopathy Code(s): G93.41 - METABOLIC ENCEPHALOPATHY Status: Resolved (6) Uremia Code(s): N19 - UNSPECIFIED KIDNEY FAILURE Status: Acute (7) Diabetes mellitus type 1 with complications Code(s): E10.8 - TYPE 1 DIABETES MELLITUS WITH UNSPECIFIED COMPLICATIONS Status: Chronic (8) ESRD (end stage renal disease) on dialysis Code(s): N18.6 - END STAGE RENAL DISEASE; Z99.2 - DEPENDENCE ON RENAL DIALYSIS Status: Chronic (9) Non-compliance with renal dialysis Code(s): Z91.15 - PATIENT'S NONCOMPLIANCE WITH RENAL DIALYSIS Status: Chronic - Plan Plan: Neuro: DX: h/o seizure disorder and CVA x 2 - A&O x 3. - Brain CT negative for acute intracranial processes. - Continue Keppra Endocrine: DX: ESRD on HD, Type 1 DM, DKA, Anion gap metabolic acidosis, hypokalemia - Pt presented in DKA. (Blood glucose of ~450s. pH 7.047. Bicarb 6.4. K 3.1. BhB 12.92) - Dr. Yanez, orchestra teacher, consulted. Dialyzed 09/23/20. Will continue regular dialysis schedule. - Restarted home dose of Lantus 20 HS on 09/23, however patient experienced several episodes of hypoglycemia. Gave 15u last night. Will monitor sugars today and consider d/c home. - He is now refusing d/c to NH. Blood sugars have been stable. We will send home after dialysis today with f/u appt in clinic this week. /Renal: - See above. Infectious: - Bacteremia - Proteus species. 2nd cultures negative @ 48 hours. - CXR negative. - s/p 2g cefepime, 1.5g vancomycin in ED. - [X] 500mg cefepime q24hr and vancomycin pharmacy to dose. - Deescalated to 300mg Omnicef po q2d (renally dosed for ESRD w/ HD) We will send home with rx for Omnicef po MWF after dialysis. Lines/Tubes: [x] R Femoral central line 09/22/20 - 09/25/20. PCP: RANULFO Hardwick Code: Full Dispo: Stable for d/c home today after dialysis. Addendum - Attending - Attending Attestation Date/Time: 09/28/20 1104 I personally evaluated the patient and discussed the management with Dr. Newby. I agree with the History, Examination, Assessment and Plan documented above with any addition or exceptions noted below. Patient stable. Will undergo HD today. Anticipate dc home afterwards. He is resistant to placement and I also anticipate he will have difficulty with continuing his antibiotics for his Proteus bacteremia. Continue insulin regimen and HD regimen.
[2020-09-28 08:06] VITALS: BP 143/67; TEMP 100.4
[2020-09-28] MEDS: Famotidine/PF 20 mg/2ml Vial SLOW IVP SCH (08:27)
[2020-09-28] MEDS: Apixaban 5 MG TAB PO SCH (08:27)
[2020-09-28] MEDS: levETIRAcetam 500 MG TAB PO SCH (08:27)
[2020-09-28] MEDS: Dronabinol 2.5 MG CAP PO SCH ×2 (08:27→16:17)
--- NOTE | 2020-09-28 17:02 | PRG ---
DATE OF SERVICE: 09/28/2020 SUBJECTIVE: The patient was seen and examined, noted with the following vital signs. OBJECTIVE: VITAL SIGNS: Temperature maximum of 100.4, pulse of 92, respiratory rate of 16, O2 saturation is 98%, and blood pressure 142/67. HEENT: Unremarkable. CARDIOVASCULAR SYSTEM: First and second heart sounds were heard. RESPIRATORY SYSTEM: Clear to auscultation. DIGESTIVE SYSTEM: Revealed a benign abdomen with positive bowel sounds. EXTREMITIES: No peripheral edema. SKIN: No new gross rash. LYMPHATICS: No peripheral lymphadenopathy. IMPRESSION: 1. End-stage renal disease, hemodialysis dependent. 2. Severe medical noncompliance. 3. Diabetes mellitus, type 1 with recurrent ketoacidosis. PLAN: 1. The patient dialyzed today and discharged afterwards. 2. . 3. Further management will be dependent on the clinical course. Job ID: [id number]
== END 2020-09-28 16:40 | disposition home or self-care (01) | DRG 871 ==
LOC: ERS 13:25 → CCU 16:37 → ONC 09-24 15:41
PROVIDERS: ADMIT Emergency Medicine; ATTEND Emergency Medicine
PROC: 3E033XZ Introduction of Vasopressor into Peripheral Vein, Percutaneous Approach (ICD-10-PCS; principal; 2020-09-22)
PROC: 06HY33Z Insertion of Infusion Device into Lower Vein, Percutaneous Approach (ICD-10-PCS; 2020-09-22)
PROC: 5A1D70Z Performance of Urinary Filtration, Intermittent, Less than 6 Hours Per Day (ICD-10-PCS; 2020-09-23)
DX: A41.59 Other Gram-negative sepsis (principal); E10.10 Type 1 diabetes mellitus with ketoacidosis without coma; N18.6 End stage renal disease; G93.41 Metabolic encephalopathy; I12.0 Hypertensive chronic kidney disease with stage 5 chronic kidney disease or end stage renal disease; J91.8 Pleural effusion in other conditions classified elsewhere; E46 Unspecified protein-calorie malnutrition; Z20.828 Contact with and (suspected) exposure to other viral communicable diseases; F41.9 Anxiety disorder, unspecified; F32.9 Major depressive disorder, single episode, unspecified; F17.210 Nicotine dependence, cigarettes, uncomplicated; F12.10 Cannabis abuse, uncomplicated; E87.6 Hypokalemia; E78.5 Hyperlipidemia, unspecified; E78.00 Pure hypercholesterolemia, unspecified; G40.909 Epilepsy, unspecified, not intractable, without status epilepticus; E87.70 Fluid overload, unspecified; E10.22 Type 1 diabetes mellitus with diabetic chronic kidney disease; R62.7 Adult failure to thrive; E10.649 Type 1 diabetes mellitus with hypoglycemia without coma; Z99.2 Dependence on renal dialysis; Z88.0 Allergy status to penicillin; Z79.899 Other long term (current) drug therapy; Z79.4 Long term (current) use of insulin; Z86.73 Personal history of transient ischemic attack (TIA), and cerebral infarction without residual deficits; Z89.511 Acquired absence of right leg below knee; Z91.15 Patient's noncompliance with renal dialysis; Z91.14 Patient's other noncompliance with medication regimen; Z68.22 Body mass index [BMI] 22.0-22.9, adult
CPT/HCPCS: 36415; 36416; 36556; 70450; 71045; 80048; 80053; 80202; 82010; 82330; 82803; 83605; 83735; 84100; 84484; 85025; 87040; 87077; 87149; 87186; 87340; 90935; 93005; 96365; 96366; 96367; 96368; 96375; G0257; J0692; J1815; J2001; J2405; J3370; J3475; J3480; J3490; J7050; Q0167; S0028; U0002

== ENCOUNTER 2020-10-14 04:25 | Inpatient (IN) | payer MEDICARE, MEDICAID ==
[2020-10-14 05:43] LABS: Hemoglobin 10.3 g/dL (14.0-18.0); Mean Corpuscular HGB CONC 31.4 g/dL (32.0-36.0); Mean Corpuscular Hemoglobin 27.7 pg (27.0-31.0); Mean Corpuscular Volume 88.2 fL (78.0-98.0); Mean Platelet Volume 11.6 fL (7.4-10.4); Platelet Count 200 thou/uL (130-400); RBC Distribution Width 16.5 % (11.5-14.5); Red Blood Cell (RBC) Count 3.72 mill/uL (4.70-6.10); White Blood Cell (WBC) Count 12.8 thou/uL (4.8-10.8)
[2020-10-14 05:46] LABS: Band 8 % (5-11); Eosinophils 1 % (0-10); Lymphocytes 9 % (21-51); MDiff Complete? YES; Monocytes 17 % (0-10); Neutrophil 65 % (42-75)
[2020-10-14 05:54] LABS: ALT (SGPT) 7 U/L (8-55); AST (SGOT) 8 U/L (5-34); Albumin 3.1 g/dL (3.5-5.0); Alkaline Phosphatase 79 U/L (40-110); Anion Gap 18 mmol/L (10-20); BUN (Urea Nitrogen) 45 mg/dL (8.9-20.6); Bilirubin, Total 0.5 mg/dL (0.2-1.2); Calc. Creatinine Clearance 0 mL/min (70-130); Calcium 8.5 mg/dL (7.8-10.44); Carbon Dioxide 20 mmol/L (22-29); Chloride 101 mmol/L (98-107); Globulin 3.8 g/dL (2.4-3.5); Glucose 82 mg/dL (70-105); Potassium 4.8 mmol/L (3.5-5.1); Protein, Total 6.9 g/dL (6.0-8.3); Sodium 134 mmol/L (136-145)
[2020-10-14] MEDS ORDERED: Magnesium 2 GM/50 ML BAG (IN WATER) ONE (06:16)
[2020-10-14] MEDS ORDERED: Aspirin 325 MG TAB ONE (06:22)
[2020-10-14] MEDS ORDERED: Amiodarone 150 MG/3 ML VIAL IVP SCH (06:30)
--- NOTE | 2020-10-14 07:21 | PDOC.FPRHP ---
- History of Present Illness Chief Complaint: hypoglycemia History of Present Illness: This is a 39M with a PMH notable for DMI, ESRD on HD, and chronic non-compliance presenting from [facility] for general malaise and weakness. He was also found to have very labile BGs at rehab. He states he has not been feeling well for 2-3 days. He denies NAJERA, palpitations, CP, N/V, fever/chills, edema. He has occasional SOB/dyspnea on exertion and chronic diarrhea, with no recent changes in bowel habits. He states he has been eating well, receiving his insulin, and attending HD since he has been at rehab "for a few days". He was reported to have a BG at 600 yesterday at rehab but it was 17 on arrival to the ED, at which point he was given glucose and it came back up to 300. On arrival to the ED, he was found to have recurrent episodes of VTach lasting a few seconds each time. During one episode, the ED physician was concerned about the strip looking like Torsades. He checked on the pt to ensure it wasn't a false read but he was resting comfortably and asx. He administered 2g Mg and 150mg Amiodarone. He continued to fluctuate in/out of VTach and NSR so an Amiodarone drip was started. He has a large lesion on his R leg that he says "started as a blister" and that his mom "has been treating". ED Course: Oral glucose. ASA 325mg, 2g IV Mg sulfate, 150mg IV Amiodarone, Amiodarone drip at 1mg/min - Allergies/Adverse Reactions Allergies Allergy/AdvReac Type Severity Reaction Status Date / Time Penicillins Allergy Unknown Verified 10/14/20 10:55 - Home Medications Medication Instructions Recorded Confirmed Type Acetaminophen [Tylenol Regular 650 mg PO Q4HR PRN 07/12/20 10/14/20 History Strength] Amlodipine [Norvasc] 10 mg PO DAILY 30 Days #30 tab 09/03/20 10/14/20 Rx Apixaban [Eliquis] 5 mg PO BID 30 Days #60 tab 09/03/20 10/14/20 Rx Aspirin [Ecotrin Low Strength] 81 mg PO DAILY 30 Days #30 tab 09/03/20 10/14/20 Rx Cinacalcet HCl [Sensipar] 60 mg PO DAILY 30 Days #60 tab 09/03/20 10/14/20 Rx Diphenoxylate HCl/Atropine 2 tab PO TID PRN 15 Days #90 tab 09/03/20 10/14/20 Rx [Lomotil] HumaLOG [HumaLOG Vial] 2 units SC TID-WM 30 Days #1 vial 09/03/20 10/14/20 Rx Insulin Glargine [Lantus] 20 units SC QAM 30 Days #2 vial 09/03/20 10/14/20 Rx Sertraline HCl 50 mg PO BID 30 Days #120 tablet 09/03/20 10/14/20 Rx Sevelamer Carbonate [Renvela] 2,400 mg PO TID-WM 30 Days #360 tab 09/03/20 10/14/20 Rx hydrALAZINE [Apresoline] 25 mg PO TID 30 Days #90 tab 09/03/20 10/14/20 Rx levETIRAcetam [Keppra] 500 mg PO BID 30 Days #60 tab 09/03/20 10/14/20 Rx Cefdinir [Omnicef] 300 mg PO MWF #5 cap 09/28/20 10/14/20 Rx - History PMHx: DM1 with R BKA, ESRD on HD, HTN, HLD, substance use (marijuana, PCP, tobacco), hx CVA x2, hx of DVT, anemia of chronic disease, chronic diarrhea, seizure disorder PSHx: R BKA, fistula placements FHx: non-contributory Social: tobacco use 1/2 ppd, smokes marijuana (last 1wk ago), uses PCP (last a few wks ago) - Review of Systems General: reports: fatigue. denies: fever/chills Respiratory: reports: shortness of breath (on exertion). denies: cough, congestion Cardiovascular: denies: chest pain, palpitation, edema Gastrointestinal: reports: diarrhea (chronic). denies: nausea, vomiting, abdominal pain, GI bleeding Skin: reports: lesions (Large lesion on L leg). denies: rashes, itching Neurological: reports: weakness - Vital signs BP: 134/79 HR: 79 RR: 15 Tmax: 97.4F oral Pox: 100% on RA Wt: 59kg - Physical Exam Constitutional: NAD, awake, alert and oriented HEENT: normocephalic and atraumatic, EOMI, grossly normal vision, grossly normal hearing Neck: supple Chest: no-tender to palpation Heart: no murmurs/rubs/gallops -Heart: Irregular Lungs: CTAB, no respiratory distress, good air movement Abdomen: soft, non-tender, bowel sounds present, no masses/distention Musculoskeletal: normal structure Neurological: no focal deficit -Skin: L leg lesion, appears to be an open ulcer with crusted discharge but it is covered and difficult to peel back dressing. Psychiatric: normal mood and affect, intact recent and remote memory FMR H&P: Results - Labs Result Diagrams: 10/14/20 05:07 10/14/20 05:07 Lab results: WBC 12.8 thou/uL (4.8-10.8) H 10/14/20 05:07 Hgb 10.3 g/dL (14.0-18.0) L 10/14/20 05:07 Hct 32.9 % (42.0-52.0) L 10/14/20 05:07 MCV 88.2 fL (78.0-98.0) 10/14/20 05:07 Plt Count 200 thou/uL (130-400) 10/14/20 05:07 Band Neuts % (Manual) 8 % (5-11) 10/14/20 05:07 Sodium 134 mmol/L (136-145) L 10/14/20 05:07 Potassium 4.8 mmol/L (3.5-5.1) 10/14/20 05:07 Chloride 101 mmol/L (98-107) 10/14/20 05:07 Carbon Dioxide 20 mmol/L (22-29) L 10/14/20 05:07 BUN 45 mg/dL (8.9-20.6) H 10/14/20 05:07 Creatinine 5.60 mg/dL (0.7-1.3) H 10/14/20 05:07 Glucose 82 mg/dL (70-105) 10/14/20 05:07 Calcium 8.5 mg/dL (7.8-10.44) 10/14/20 05:07 Total Bilirubin 0.5 mg/dL (0.2-1.2) 10/14/20 05:07 AST 8 U/L (5-34) 10/14/20 05:07 ALT 7 U/L (8-55) L 10/14/20 05:07 Alkaline Phosphatase 79 U/L (40-110) 10/14/20 05:07 Serum Total Protein 6.9 g/dL (6.0-8.3) 10/14/20 05:07 Albumin 3.1 g/dL (3.5-5.0) L 10/14/20 05:07 FMR H&P: A/P - Plan 39yo male w/ hx IDDM, ESRD on HD who [facility] and was found to have VTach and possible Torsades on tele. VTach, possible Torsades -Found to have 3 episodes of 20sec of VTach and possibly Torsades in the ED. Pt asx -s/p 2g Mg, 150mg Amiodarone -Amiodarone gtt -Trop <0.01 -Cardiology, Dr. Augustin, consulted. Appreciate recs -Admit to tele -am Mg, P, BMP DMI with labile BGs Hx of noncompliance -BG of 600 prior to arrival, per ED. BG of 17 on arrival, increased to 300 with food -Hypoglycemia protocol -ACHS checks -Home meds L leg wound -Wound care consulted -WBC 12.8. This is a possible cause although it is unlikely. Will monitor with am CBC ESRD on HD -Cr 5.6 on arrival, improved from last admission -Nephro, Dr. Palmer, consulted to schedule HD. Appreciate recs Anemia of chronic disease -Hb 10.3, improved from last admission -am CBC Hx of CVA x2 -Stable, continue home ASA Hx of DVTs -continue home eliquis Substance abuse -Has hx of PCP and marijuana use -Tobacco use -Encourage cessation Seizure disorder -Continue home meds -Seizure precautions Chronic diarrhea -Stable -continue home meds HLD -continue home meds HTN -continue home meds R BKA Code: Full PCP: LBuse/Tamp DVT: eliquis Dispo: admit to inpt tele. Monitor rhythm and adjust management per Cardiology recs. FMR H&P: Upper Level - Pertinent history 39YO AAM with a PMH notable for ESRD on HD (MWF), T1DM, HTN, recurrent DVT & chronic non-compliance who presents to ED for not feeling right for the last 2-3 days. Of note, the patient was recently discharged earlier this month after an admission for missing HD & was reportedly discharged home as he refused rehab placement. However, per ER & patient report he has been at [facility] for the last 2-3 days. The patient states that since getting to rehab he has experienced generalized weakness and malaise. Denies any fever/chills, myalgias, N/V/C, decreased appetite, cough, or congestion. He also denies any palpitations, chest pain, or edema. Per the patient it was his Mom who finally told him to go to the ER to get checked out. Per ER report the rehab facility reported that he had a BG level of 600 that soon after dropped to 17 so he was sent to the ER for evaluation due to that. On arrival to the ED the patient's BG was 82 and all other labs were WNLs/in patient's baseline range. He was actually going to be discharged home until ~3 episodes non-sustained V-tach were noted on the monitor with one episode actually concerning for torsades. He was therefore given 2mg IV magnesium & 150mg IV amiodarone as well as 325mg ASA before we were called for admission for further workup for her arrhythmia. 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 Normal affect - Plan Date/Time: 10/14/20 0705 IVivienne, have evaluated this patient and agree with findings/plan as outlined by software engineer intern resident. Pertinent changes/additions are listed here. A/P: #Ventricular arrhythmia: -Per report patient had ~3 episodes of ~20 seconds of V-tach and at one point strip was concerning for torsades while being monitored in the ED. Is s/p IV 2g Mg &150 mg IV amio as well as 325mg ASA. -Will check a serum Mg level & admit to tele for continued close monitoring. Continue to monitor lytes QD. Troponin pending. -Cards consult first thing this AM. #Leukocytosis - WBC of 12.8 on presentation but vitals WNLs. No left shift. Will continue to monitor. Only potential source on exam is a LLE leg wound but no purulence or surrounding warmth or erythema noted. WC consulted. Will continue to trend QD CBCs. #ESRD on HD MWF -Renal function appears @ baseline. Will continue home meds & renally dose meds PRN. Will get nephrology on board to continue HD per his routine GALEN while inpatient #DMI -ACHS accuchecks & will resume home insulin regimen as tolerated. CC diet. Hypoglycemia protocol. #Hx pleural effusion - Aware, appears much improved on CXR today. #Anemia of Chronic Disease: -H/H at/better than baseline. Continue to monitor. #Chronic Diarrhea: -Aware, has been thoroughly worked up outpatient, has hx of C. Diff Ag positive but never toxin positive. Continue home Lomotil while inpatient. #Hx of CVA -Stable, aware. Continue home meds. #Hx of DVTs -continue home eliquis #Substance abuse -Encouraged cessation #Seizure disorder -Continue home meds -Seizure precautions Dispo: Will admit to telemetry inpatient for continued close cardiac monitoring w/ cardiology consult first thing this AM. Anticipated LOS at least 2 midnights pending clinical course. DVT PPx: home eliquis GI PPx: none Code Status: Full Attending: PCP: SANDY Hardwick
[2020-10-14] MEDS ORDERED: Dextrose 50% Abboject 50 ML SYRINGE SLOW IVP PRN (07:49)
[2020-10-14] MEDS ORDERED: Dextrose 5% in Water 1,000 ML IV PRN (07:49)
[2020-10-14] MEDS ORDERED: Diphenoxylate HCl/Atropine Tablet PO PRN (08:13)
[2020-10-14] MEDS ORDERED: Acetaminophen 325 MG TAB PO PRN (08:13)
[2020-10-14] MEDS ORDERED: Amiodarone In Dextrose 360 MG in Premix Bag 1 BAG IVPB SCH (08:30)
[2020-10-14] MEDS ORDERED: Amiodarone 450 MG in Dextrose 5% in Water 250 ML IVPB SCH ×2 (08:30→14:00)
[2020-10-14] MEDS ORDERED: Apixaban 5 MG TAB PO SCH (09:00)
[2020-10-14] MEDS ORDERED: Cinacalcet HCl 30 MG TAB PO SCH (09:00)
[2020-10-14] MEDS ORDERED: Insulin Glargine 20 UNITS in Pre-Filled Syringe 1 EACH SC SCH (09:00)
--- NOTE | 2020-10-14 10:09 | RAD ---
CHEST 1 VIEW: Date: 10/14/2020 INDICATION: Chest pain. COMPARISON: Prior exam dated 09/22/2020. FINDINGS: There is a small right pleural effusion that has improved from the prior exam. Hazy opacity remains w ithin the right mid lung and right lower lobe which may reflect pneumonia or subsegmental atelectasis . There is hazy opacity within the left lung. There are endovascular stents within the left subclavia n region and left axillary region, as well as the right axillary region. There is mild cardiomegaly. There are pacer pads overlying the right chest wall. IMPRESSION: 1. Findings suspicious for persistent volume overload and mild CHF. 2. Hazy air space opacity in both lobes may reflect a component of air space edema or pneumonia. Rec ommend continued follow-up. POS: BH
[2020-10-14 10:48] LABS: Magnesium 3.1 mg/dL (1.6-2.6); Phosphorus 3.7 mg/dL (2.3-4.7)
[2020-10-14 10:53] VITALS: BMI 18.2
[2020-10-14 10:59] LABS: Troponin I 0.021 ng/mL (< 0.028)
[2020-10-14] MEDS: HumaLOG 300 UNITS/3 ML VIAL SC SCH ×4 (12:58→18:14)
[2020-10-14] MEDS: Amlodipine 10 MG TAB PO SCH ×2 (12:58→13:33)
[2020-10-14] MEDS: levETIRAcetam 500 MG TAB PO SCH ×2 (13:32→21:25)
[2020-10-14] MEDS: Aspirin 81 mg Enteric Coated Tablet PO SCH (13:32)
[2020-10-14] MEDS: Sevelamer Carbonate 800 MG TAB PO SCH ×2 (13:32→16:28)
[2020-10-14 13:33] LABS: Troponin I Less than 0.010 ng/mL (< 0.028)
[2020-10-14] MEDS ORDERED: hydrALAZINE 25 MG TAB PO SCH (15:00)
[2020-10-14] MEDS ORDERED: Acetaminophen 500 MG TAB PO PRN (17:53)
[2020-10-14] MEDS ORDERED: Diabetic Tussin 200 MG/10 ML UDCUP PO PRN (17:53)
[2020-10-14] MEDS ORDERED: Loperamide HCl 2 MG CAP PO PRN (17:53)
[2020-10-14] MEDS ORDERED: Calcium Carbonate 500 MG ChewTAB PO PRN ×2 (17:53)
[2020-10-14] MEDS ORDERED: Simethicone Chewable 80 MG TAB PO PRN (17:53)
[2020-10-14] MEDS ORDERED: diphenhydrAMINE 25 MG CAP PO PRN (17:53)
[2020-10-14] MEDS ORDERED: cloNIDine 0.1 MG TAB PO PRN (17:53)
[2020-10-14] MEDS ORDERED: Cepastat Lozenges 1 LOZ PO PRN (18:10)
[2020-10-14] MEDS ORDERED: DARBEPOETIN ALFA IN POLYSORBAT SC SCH (18:15)
[2020-10-14 18:34] LABS: SARS-CoV-2 MS2 Positive; SARS-CoV-2 N Gene Negative; SARS-CoV-2 S Gene Negative; SARS-CoV-2 by NAA Not Detected (NotDetected); SARS-CoV-2 orf1ab Negative
--- NOTE | 2020-10-14 19:05 | CON ---
DATE OF CONSULTATION: 10/14/2020 REASON FOR CONSULTATION: Possible wide-complex tachycardia. HISTORY OF PRESENT ILLNESS: Mr. Brush is a 39-year-old gentleman with a long history of renal failure on hemodialysis, long history of noncompliance in the past as outlined in the chart. The patient was in the rehab facility when he had general malaise and weakness. He was noted to have low blood sugars. He was on a monitor and was thought that he was having wide-complex tachycardia. He has been admitted for that. He was given amiodarone in the emergency room. PAST HISTORY: 1. He has had a history of vascular insufficiency with previous below-knee amputation. 2. History of hypertension. 3. History of diabetes. 4. History of leg wound. MEDICATIONS: The patient was takin. Aspirin. 2. Clonidine. 3. Calcium. 4. He was on Eliquis apparently 2.5 mg twice a day for history of DVT. REVIEW OF SYSTEMS: CONSTITUTIONAL: He says he feels cold all the time and he shivers. VISION: No changes. HEARING: No changes. PULMONARY: No cough or wheezing. GASTROINTESTINAL: No nausea, vomiting, or diarrhea. SKIN: No rashes. NEUROLOGIC: No unilateral weakness or numbness. PSYCHIATRIC: No unusual depression or anxiety. PHYSICAL EXAMINATION: GENERAL: This is a very pleasant, but chronically ill-appearing gentleman, looks much older than his chronologic age of 39. VITAL SIGNS: Blood pressure 138/72, pulse is 80. NECK: Neck veins are normal. Carotid normal upstrokes. LUNGS: Clear. CARDIAC: Normal S1 and normal S2. ABDOMEN: Soft and nontender. EXTREMITIES: Previous below-knee amputation. NEUROLOGIC: The patient is shivering at times with a tremor in his arms. DIAGNOSTIC STUDIES: EKG; sinus rhythm, no acute changes. Hemoglobin is 10.3. The cardiac enzymes were negative. COVID was negative. Echocardiogram showed the ejection fraction is normal at 60 to 65%, there is moderate concentric left ventricular hypertrophy. CONCLUSION: 1. End-stage renal disease. 2. Longstanding hypertension. 3. Wide-complex rhythm on the monitor. I suspect this is probably artifactual, some of the P waves can be traced out. He also clearly has a tremor. PLAN: 1. We will ask Dr. Sifuentes to take a look at the rhythm strips. I think probably this is artifact. 2. Reduce the amiodarone dose and turn it off tomorrow morning. Job ID: [id number]
--- NOTE | 2020-10-14 20:42 | CON ---
DATE OF CONSULTATION: CONSULTING PHYSICIAN: Beau Palmer MD REQUESTING PHYSICIAN: Dr. Alvarado. REASON FOR CONSULTATION: Need for maintenance hemodialysis. IMPRESSION: 1. End-stage renal disease, hemodialysis dependent. 2. Medical noncompliance. 3. Type 1 diabetes, difficult to control. 4. Failure to thrive. PLAN: 1. The patient is due for dialysis today, but refused dialysis due to diarrhea. No emergent indication to dialyze this patient; therefore, we will hold off until tomorrow. 2. Counseling on compliance issues. 3. Further management to be dependent on the clinical course. HISTORY OF PRESENT ILLNESS: History is that of a 39-year-old gentleman, known very well to this hospital because of a frequent hospitalization, who has been recuperating at the rehab and was transferred over here with a complaint of [id number] hypoglycemic episodes. The patient in the ED was noted to have a low significant cardiac arrhythmia including ventricular tachycardia with possibility of Torsades, for which the patient was given magnesium and admitted for further workup. PAST MEDICAL HISTORY: Significant for type 1 diabetes, end-stage renal disease on dialysis, medical noncompliance. MEDICATIONS: Reviewed and as documented on [employer]. FAMILY HISTORY: Not significantly related to present illness. SOCIAL HISTORY: No alcohol. No tobacco. No illicit drug use. PHYSICAL EXAMINATION: GENERAL: The patient was found to be ill looking, noted with the following vital signs. VITAL SIGNS: Afebrile, temperature 98, pulse 91, respiratory rate of 18, O2 saturations of 97%, and blood pressure 138/72. HEENT: Unremarkable. CARDIOVASCULAR SYSTEM: First and second heart sounds were heard. RESPIRATORY SYSTEM: Clear to auscultation. DIGESTIVE SYSTEM: Revealed a benign abdomen with positive bowel sounds. EXTREMITIES: No peripheral edema. SKIN: No new gross rash. LYMPHATICS: No peripheral lymphadenopathy. SUMMARY: A 39-year-old gentleman with end-stage renal disease, presented here with difficult to control hypoglycemic episodes, noted with significant cardiac arrhythmias. Thank you for this consultation. We will follow with you. Job ID: [id number]
[2020-10-14] MEDS ORDERED: Insulin Glargine 10 UNITS in Pre-Filled Syringe 1 EACH SC SCH (21:00)
[2020-10-14] MEDS ORDERED: Non-Formulary Item 1 EACH (Insulin Detemir [Levemir] 100 UNIT/ML Vial) SQ SCH (21:00)
[2020-10-14] MEDS ORDERED: Vancomycin HCl 25 MG/ML Oral PO SCH (21:00)
[2020-10-14] MEDS: Apixaban 2.5 MG TAB PO SCH (21:25)
[2020-10-15 05:34] LABS: Anion Gap 18 mmol/L (10-20); BUN (Urea Nitrogen) 57 mg/dL (8.9-20.6); Calc. Creatinine Clearance 13 mL/min (70-130); Calcium 8.1 mg/dL (7.8-10.44); Carbon Dioxide 20 mmol/L (22-29); Chloride 105 mmol/L (98-107); Glucose 110 mg/dL (70-105); Magnesium 3.2 mg/dL (1.6-2.6); Phosphorus 4.2 mg/dL (2.3-4.7); Sodium 137 mmol/L (136-145)
[2020-10-15 06:26] LABS: Band 7 % (5-11); Eosinophils 4 % (0-10); Lymphocytes 14 % (21-51); MDiff Complete? YES; Mean Corpuscular HGB CONC 30.8 g/dL (32.0-36.0); Mean Corpuscular Hemoglobin 27.5 pg (27.0-31.0); Mean Corpuscular Volume 89.1 fL (78.0-98.0); Mean Platelet Volume 11.4 fL (7.4-10.4); Monocytes 20 % (0-10); Neutrophil 55 % (42-75); Platelet Count 194 thou/uL (130-400); RBC Distribution Width 16.5 % (11.5-14.5); Red Blood Cell (RBC) Count 3.26 mill/uL (4.70-6.10); White Blood Cell (WBC) Count 7.3 thou/uL (4.8-10.8)
[2020-10-15] MEDS ORDERED: HumaLOG 300 UNITS/3 ML VIAL SC SCH (08:00)
--- NOTE | 2020-10-15 08:38 | PDOC.FM ---
- Objective Vital Signs & Weight: Vital Signs (12 hours) Temp Pulse Resp BP Pulse Ox 10/15/20 03:27 98.7 F 78 20 108/55 L 96 10/14/20 23:44 98.7 F 90 20 119/54 L 97 Weight Admit Weight 58.967 kg Weight 59.222 kg I&O: 10/14/20 10/15/20 10/16/20 06:59 06:59 06:59 Intake Total 1100 Balance 1100 Result Diagrams: 10/15/20 04:21 10/15/20 04:21 Dx/Plan - Plan Plan: 39yo male w/ hx IDDM, ESRD on HD who [facility] and was found to have VTach and possible Torsades on tele. VTach, possible Torsades -Found to have 3 episodes of 20sec of VTach and possibly Torsades in the ED. Pt asx -Cardiology, Dr. Augustin, consulted. Appreciate recs * Suspicion for rhythm being d/t artifact * D/c Amiodarone gtt today -EPS, Dr. Sifuentes, consulted. Appreciate recs -Admit to tele -am Mg, P, BMP DMI with labile BGs Hx of noncompliance -BG of 600 prior to arrival, per ED. BG of 17 on arrival, increased to 300 with food -Hypoglycemia protocol -ACHS checks -Home meds L leg wound -Wound care consulted -WBC 12.8 -> 7.3 ESRD on HD -Cr 5.6 on arrival, improved from last admission -Nephro, Dr. Palmer, consulted to schedule HD. Appreciate recs * Pt refused HD yesterday. Is willing to go today -K 6.0 today Anemia of chronic disease -Hb 10.3, improved from last admission -am CBC Hx of CVA x2 -Stable, continue home ASA Hx of DVTs -continue home eliquis Substance abuse -Has hx of PCP and marijuana use -Tobacco use -Encourage cessation Seizure disorder -Continue home meds -Seizure precautions Chronic diarrhea -Stable -continue home meds -CDiff neg. Vancomycin from rehab d/c HLD -continue home meds HTN -continue home meds R BKA Code: Full PCP: LBuse/Tamp DVT: eliquis Dispo: admit to inpt tele. Monitor rhythm and adjust management per Cardiology recs. Possible d/c today s/p HD.
[2020-10-15] MEDS: Sevelamer Carbonate 800 MG TAB PO SCH ×3 (08:39→16:23)
[2020-10-15] MEDS: Apixaban 2.5 MG TAB PO SCH (08:40)
[2020-10-15] MEDS: Aspirin 81 mg Enteric Coated Tablet PO SCH (08:40)
[2020-10-15] MEDS: levETIRAcetam 500 MG TAB PO SCH (08:40)
--- NOTE | 2020-10-15 08:56 | CON ---
DATE OF CONSULTATION: 10/15/2020 REFERRING SUBASSEMBLY ASSEMBLER: Adonay Augustin M.D. REASON FOR CONSULTATION: Abnormal ECG. HISTORY OF PRESENT ILLNESS: Mr. Brush is a pleasant 39-year-old male with a history of end-stage renal disease, on hemodialysis, and noncompliance. He was admitted with hypoglycemia and volume overload. He had wide-complex tachycardia on telemetry. I have reviewed the tracings and interpreted as artifact, he has not had ventricular tachycardia. He has no history of syncope, seizures, or recent neurologic deficits. He has no chest discomfort or dyspnea. He is currently lying flat. PAST MEDICAL HISTORY: 1. Peripheral vascular disease. 2. Hypertension. 3. Diabetes. 4. Leg wound. 5. End-stage renal disease, on dialysis. REVIEW OF SYSTEMS: 12-point review of systems negative. PHYSICAL EXAMINATION: GENERAL: Alert and oriented x4. In no apparent distress. VITAL SIGNS: Afebrile, blood pressure 130/72, pulse 90, respiratory rate 12. HEENT: No lesions. Sclerae clear. SKIN: No lesions. DIAGNOSTIC STUDIES: EKG; normal sinus rhythm, rightward axis, corrected QT interval normal IMPRESSION AND PLAN: 1. Abnormal ECG. I reviewed his tracings and interpreted them as artifact. He does not have ventricular tachycardia. 2. Hypertension. 3. End-stage renal disease. 4. Diabetes. RECOMMENDATIONS: 1. Discontinue amiodarone. 2. No action needed from electrophysiology standpoint. 3. Sign off. Job ID: [id number] MTDD
[2020-10-15] MEDS ORDERED: Insulin Glargine 30 UNITS in Pre-Filled Syringe 1 EACH SC SCH (09:00)
[2020-10-15] MEDS ORDERED: Calcitriol 0.25 MCG CAP PO SCH (09:00)
[2020-10-15] MEDS ORDERED: Insulin Glargine 20 UNITS in Pre-Filled Syringe 1 EACH SC SCH (09:00)
[2020-10-15] MEDS ORDERED: Ergocalciferol 1.25 MG(50,000 UNITS) CAP PO SCH (09:00)
[2020-10-15] MEDS ORDERED: Non-Formulary Item 1 EACH (Insulin Detemir [Levemir] 100 UNIT/ML Vial) SQ SCH (09:00)
[2020-10-15] MEDS ORDERED: Famotidine 20 MG TAB PO SCH (09:00)
[2020-10-15] MEDS ORDERED: Polyethylene Glycol 3350 17 GM Packet PO SCH (09:00)
[2020-10-15 14:51] VITALS: TEMP 97.7
[2020-10-15 15:14] VITALS: BP 147/65
--- NOTE | 2020-10-15 18:06 | DIS ---
DATE OF ADMISSION: 10/14/2020 DATE OF DISCHARGE: 10/15/2020 RESIDENT: Shannan Mulligan MD ADMITTING ATTENDING: Tj Heredia MD DISCHARGE ATTENDING: Tj Heredia MD CONSULTS: 1. Cardiology, Efraín Augustin MD (10/14). 2. Nephrology, Beau Palmer MD (10/14). 3. EPS, Segundo Sifuentes MD (10/15). PROCEDURES: Chest x-ray 10/14, no acute findings. Echocardiogram (10/14). PRIMARY DIAGNOSES: Recurrent nonsustained ventricular tachycardia with possible torsade, labile blood sugars. SECONDARY DIAGNOSES: T1DM, S/P right BKA, ESRD on HD, anemia of chronic disease, seizure disorder, chronic diarrhea, CVA x2, history of DVT, HTN, HLD, history of substance abuse (marijuana, PCP, tobacco). DISCHARGE MEDICATIONS: 1. Atorvastatin 20 mg p.o. at bedtime. 2. Lomotil 2 tabs p.o. t.i.d. p.r.n. 3. Aspirin 81 mg p.o. daily. 4. Keppra 500 mg p.o. b.i.d. 5. Renvela 2400 mg p.o. t.i.d.-WM. 6. Loperamide 2 mg p.o. q.4h p.r.n. 7. Guaifenesin 10 mL p.o. q.4h p.r.n. 8. Dextrose 15 g p.o. as directed p.r.n. 9. Glucagon 1 mg intramuscular p.r.n. 10. Benadryl 25 mg p.o. q.6h p.r.n. 11. Clonidine 0.1 mg p.o. q.6h p.r.n. 12. Tums. 13. Dulcolax 10 mg rectal daily p.r.n. 14. Cepacol lozenge b.i.d. p.r.n. 15. Acetaminophen 500 mg p.o. q.4h p.r.n. 16. Zoloft 100 mg p.o. daily. 17. MiraLAX p.r.n. 18. Insulin lispro 5 units subcu t.i.d.-WM. 19. Insulin Levemir 10 units subcu at bedtime. 20. Insulin Levemir 30 units subcu q.a.m. 21. Famotidine 20 mg p.o. b.i.d. 22. Vitamin D2 50,000 units p.o. every week. 23. Aranesp 40 mcg subcu q.70. 24. Calcitriol 0.25 mcg p.o. daily. 25. Eliquis 2.5 mg p.o. b.i.d. 26. Simethicone 80 mg p.o. t.i.d. p.r.n. Discontinued medications: Vancomycin 125 mg p.o. q.i.d. HISTORY OF PRESENT ILLNESS/HOSPITAL COURSE: This is a 39-year-old male who [facility] with [facility] malaise and weakness, as well as labile blood sugars. He had been feeling unwell for 2 to 3 days, but was unable to quantify what that meant. Prior to arrival, his blood sugar had reportedly been 600 at rehab. On arrival to the ED, his blood sugar was 17, but brandie to the 300s with administration of glucose. While in the ED, he was found to have recurrent, transient episode of ventricular tachycardia with 1 episode being concerning for torsade de Pointes. As such, he was given 2 g of magnesium sulfate and 150 mg amiodarone. Despite this, he continued to have recurrent episodes of V-tach at which point he was started on amiodarone drip. Cardiology, Dr. Augustin, was consulted who approved this management. An echo was obtained which showed an EF of 60% to 65%. As such, Dr. Augustin felt the episodes of V-tach were artifact due to the patient's underlying tremor. He consulted EPS, Dr. Sifuentes, to evaluate the telemetry strip. He confirmed that they were likely artifact. As such, the amiodarone drip was discontinued. The patient has ESRD, on hemodialysis which he receives Monday, Monday, Monday. Dr. Palmer is his career agent and was contacted on his admission to set up dialysis. On Monday, the patient refused dialysis due to diarrhea, but he was agreeable the next day and was found to have a potassium of 6.0, so he received hemodialysis prior to discharge. On admission, the patient's nurse was concerned about his recurrent diarrhea and there was confusion as to whether he was being treated for C diff at rehab. As such, a stool sample was sent for C diff testing which came back negative, so the vancomycin listed as a medication in rehab was discontinued. On arrival, the patient was also found to have a large wound on his left lower leg, which he stated his mom had been treating. Wound Care was consulted for this and it was recommended he continue being treated by them upon return to rehab. DISPOSITION: Stable. DISCHARGE INSTRUCTIONS: Location: [facility]. Diet: Heart healthy, low-sodium with Ensure High Protein (as recommended by dietary). Activity: As tolerated. Followup: The patient is encouraged to follow up with his PCP, Dr. Mela Hardwick, in 7 to 10 days. Job ID: [id number]
[2020-10-15] MEDS ORDERED: Atorvastatin Calcium 20 MG TAB PO SCH (21:00)
--- NOTE | 2020-10-16 13:20 | PRG ---
DATE OF SERVICE: 10/15/2020 OBJECTIVE: VITAL SIGNS: The patient noted with the following vital Signs; afebrile, temperature pulse of 87, respiratory rate of 16, O2 saturations of 98%, blood pressure 127/68. HEENT: Unremarkable. CARDIOVASCULAR SYSTEM: First and second heart sounds were heard. RESPIRATORY SYSTEM: Clear to auscultation. DIGESTIVE SYSTEM: Revealed a benign abdomen with positive bowel sounds. EXTREMITIES: No peripheral edema. SKIN: No new gross rash. LYMPHATIC: No peripheral lymphadenopathy. IMPRESSION: 1. End-stage renal disease, on dialysis. 2. Severe medical noncompliance. 3. Diabetes mellitus type 1. PLAN: 1. The patient to be dialyzed today, and subsequently from the renal standpoint, the patient will be discharged any time. 2. Further management to be dependent on the clinical course. Job ID: [id number]
== END 2020-10-15 19:06 | DRG 308 ==
LOC: ERS 04:25 → 2NO 07:00
PROVIDERS: ADMIT Emergency Medicine; ATTEND Emergency Medicine
PROC: 5A1D70Z Performance of Urinary Filtration, Intermittent, Less than 6 Hours Per Day (ICD-10-PCS; principal; 2020-10-15)
DX: I47.1 Supraventricular tachycardia (principal); N18.6 End stage renal disease; Z20.828 Contact with and (suspected) exposure to other viral communicable diseases; I12.0 Hypertensive chronic kidney disease with stage 5 chronic kidney disease or end stage renal disease; I47.2 Ventricular tachycardia; F17.210 Nicotine dependence, cigarettes, uncomplicated; S81.802A Unspecified open wound, left lower leg, initial encounter; K52.9 Noninfective gastroenteritis and colitis, unspecified; E78.00 Pure hypercholesterolemia, unspecified; E78.5 Hyperlipidemia, unspecified; D63.1 Anemia in chronic kidney disease; G40.909 Epilepsy, unspecified, not intractable, without status epilepticus; F12.10 Cannabis abuse, uncomplicated; E10.22 Type 1 diabetes mellitus with diabetic chronic kidney disease; E10.649 Type 1 diabetes mellitus with hypoglycemia without coma; R62.7 Adult failure to thrive; Z68.1 Body mass index [BMI] 19.9 or less, adult; Z88.0 Allergy status to penicillin; Z99.2 Dependence on renal dialysis; Z91.14 Patient's other noncompliance with medication regimen; Z79.01 Long term (current) use of anticoagulants; Z79.82 Long term (current) use of aspirin; Z79.4 Long term (current) use of insulin; Z79.899 Other long term (current) drug therapy; Z86.73 Personal history of transient ischemic attack (TIA), and cerebral infarction without residual deficits; Z86.718 Personal history of other venous thrombosis and embolism; Z89.511 Acquired absence of right leg below knee
CPT/HCPCS: 36415; 36416; 71045; 80048; 83735; 84100; 84443; 84484; 85025; 87324; 87449; 87635; 93005; 93306; 96374; 96375; J0282; J1815; J3475; J7070; U0003

== ENCOUNTER 2020-10-17 05:08 | Emergency (ER) | payer MEDICAID, MEDICARE, OTHER ==
[2020-10-17 06:14] LABS: ALT (SGPT) 8 U/L (8-55); AST (SGOT) 17 U/L (5-34); Albumin 3.1 g/dL (3.5-5.0); Alkaline Phosphatase 91 U/L (40-110); Anion Gap 20 mmol/L (10-20); BUN (Urea Nitrogen) 45 mg/dL (8.9-20.6); Bilirubin, Total 0.4 mg/dL (0.2-1.2); Calc. Creatinine Clearance 0 mL/min (70-130); Calcium 8.3 mg/dL (7.8-10.44); Carbon Dioxide 19 mmol/L (22-29); Chloride 101 mmol/L (98-107); Globulin 4.4 g/dL (2.4-3.5); Glucose 146 mg/dL (70-105); Potassium 5.4 mmol/L (3.5-5.1); Protein, Total 7.5 g/dL (6.0-8.3); Sodium 135 mmol/L (136-145)
[2020-10-17 06:20] LABS: Band 15 % (5-11); Eosinophils 1 % (0-10); Hemoglobin 10.6 g/dL (14.0-18.0); Lymphocytes 15 % (21-51); MDiff Complete? YES; Mean Corpuscular HGB CONC 31.8 g/dL (32.0-36.0); Mean Corpuscular Hemoglobin 28.4 pg (27.0-31.0); Mean Corpuscular Volume 89.2 fL (78.0-98.0); Mean Platelet Volume 10.8 fL (7.4-10.4); Monocytes 13 % (0-10); Neutrophil 56 % (42-75); Platelet Count 181 thou/uL (130-400); Platelet Morphology Comment Appears Adequate; RBC Distribution Width 16.3 % (11.5-14.5); Red Blood Cell (RBC) Count 3.72 mill/uL (4.70-6.10); White Blood Cell (WBC) Count 8.2 thou/uL (4.8-10.8)
== END 2020-10-17 07:27 ==
LOC: ERS 05:08
DX: E10.649 Type 1 diabetes mellitus with hypoglycemia without coma (principal); Z86.73 Personal history of transient ischemic attack (TIA), and cerebral infarction without residual deficits; E78.5 Hyperlipidemia, unspecified; E78.00 Pure hypercholesterolemia, unspecified; I12.0 Hypertensive chronic kidney disease with stage 5 chronic kidney disease or end stage renal disease; N18.6 End stage renal disease; Z79.82 Long term (current) use of aspirin; Z79.01 Long term (current) use of anticoagulants; Z79.899 Other long term (current) drug therapy; F17.210 Nicotine dependence, cigarettes, uncomplicated
CPT/HCPCS: 36415; 36416; 80053; 85025; 93005

== ENCOUNTER 2020-10-28 07:46 | Observation (INO) | payer MEDICARE, MEDICAID ==
[2020-10-28 08:33] LABS: #Lymphocytes 1.7 thou/uL (1.20-3.40); #Monocytes 0.8 thou/uL (0.11-0.59); #Neutrophils 6.1 thou/uL (1.40-6.50); %Basophils 0.3 % (0.0-1.0); %Eosinophils 0.2 % (0.0-10.0); %Lymphocytes 19.9 % (21.0-51.0); %Monocytes 9.2 % (0.0-10.0); %Neutrophils 70.4 % (42.0-75.0); Mean Corpuscular HGB CONC 31.2 g/dL (32.0-36.0); Mean Corpuscular Hemoglobin 27.6 pg (27.0-31.0); Mean Corpuscular Volume 88.5 fL (78.0-98.0); Mean Platelet Volume 11.1 fL (7.4-10.4); Platelet Count 196 thou/uL (130-400); RBC Distribution Width 16.3 % (11.5-14.5); Red Blood Cell (RBC) Count 2.89 mill/uL (4.70-6.10); White Blood Cell (WBC) Count 8.6 thou/uL (4.8-10.8)
[2020-10-28 08:57] LABS: ALT (SGPT) 25 U/L (8-55); AST (SGOT) 29 U/L (5-34); Albumin 3.1 g/dL (3.5-5.0); Alkaline Phosphatase 146 U/L (40-110); Anion Gap 27 mmol/L (10-20); BUN (Urea Nitrogen) 58 mg/dL (8.9-20.6); Bilirubin, Total 0.3 mg/dL (0.2-1.2); Calc. Creatinine Clearance 0 mL/min (70-130); Calcium 8.5 mg/dL (7.8-10.44); Carbon Dioxide 18 mmol/L (22-29); Chloride 99 mmol/L (98-107); Potassium 5.5 mmol/L (3.5-5.1); Protein, Total 7.1 g/dL (6.0-8.3); Sodium 138 mmol/L (136-145)
[2020-10-28 09:06] LABS: Glucose 682 mg/dL (70-105)
--- NOTE | 2020-10-28 10:05 | PDOC.FPRHP ---
- History of Present Illness Chief Complaint: unwell History of Present Illness: Pt is a 39 yo gentleman with PMH significant for DM I, non-compliance, polysubstance abuse who presents to the ED for feeling "unwell". He admits to not taking insulin yesterday due to a BG 140. He then overate. He woke up this morning feeling unwell and "not himself". He decided to come to the emergency department. He denies missing dialysis. Denies respiratory symptoms. Endorsed diarrhea which is no change from chronic status. Nursing commented on a decubitus pressure ulcer, L 1st metatarsal pressure ulcer. ED Course: ED administered 1 U NS - Allergies/Adverse Reactions Allergies Allergy/AdvReac Type Severity Reaction Status Date / Time Penicillins Allergy Unknown Verified 10/14/20 10:55 - Home Medications Medication Instructions Recorded Confirmed Type Aspirin [Ecotrin Low Strength] 81 mg PO DAILY 30 Days #30 tab 09/03/20 10/14/20 Rx Sevelamer Carbonate [Renvela] 2,400 mg PO TID-WM 30 Days #360 tab 09/03/20 10/14/20 Rx levETIRAcetam [Keppra] 500 mg PO BID 30 Days #60 tab 09/03/20 10/14/20 Rx Acetaminophen [Acetaminophen Extra 500 mg PO Q4HR PRN 10/14/20 10/14/20 History Strength] Apixaban [Eliquis] 2.5 mg PO BID 10/14/20 10/14/20 History Benzocaine/Menthol [Cepacol Sore 1 each MM BID PRN 10/14/20 10/14/20 History Throat Lozenge] Bisacodyl [Dulcolax] 10 mg MD DAILY PRN 10/14/20 10/14/20 History Calcitriol 0.25 mcg PO DAILY 10/14/20 10/14/20 History Calcium Carbonate [Tums] 1,000 mg PO Q6HR PRN 10/14/20 10/14/20 History Calcium Carbonate [Tums] 500 mg PO Q6HR PRN 10/14/20 10/14/20 History Darbepoetin [place] in Polysorbat 40 mcg SC Q7D 10/14/20 10/14/20 History [Aranesp] Dextrose [Glucose] 15 gm PO ASDIR PRN 10/14/20 10/14/20 History Ergocalciferol (Vitamin D2) 50,000 unit PO Q7DAYS 10/14/20 10/14/20 History [Vitamin D2] Famotidine [Pepcid] 20 mg PO BID 10/14/20 10/14/20 History Glucagon HCL [Glucagon HCl] 1 mg IM PRN PRN 10/14/20 10/14/20 History Insulin Detemir [Levemir] 10 unit SQ HS 10/14/20 10/14/20 History Insulin Detemir [Levemir] 30 unit SQ QAM 10/14/20 10/14/20 History Insulin Lispro 5 unit SQ TID-WM 10/14/20 10/14/20 History Loperamide HCl [Loperamide] 2 mg PO Q4HR PRN 10/14/20 10/14/20 History Polyethylene Glycol 3350 17 gm PO DAILY 10/14/20 10/14/20 History Sertraline HCl [Zoloft] 100 mg PO DAILY 10/14/20 10/14/20 History Simethicone [Gas Relief] 80 mg PO TID PRN 10/14/20 10/14/20 History cloNIDine [Catapres] 0.1 mg PO Q6HR PRN 10/14/20 10/14/20 History diphenhydrAMINE [Benadryl] 25 mg PO Q6HR PRN 10/14/20 10/14/20 History guaiFENesin [Adult Tussin Chest 10 ml PO Q4HR PRN 10/14/20 10/14/20 History Congestion] Atorvastatin Calcium [Lipitor] 20 mg PO HS tab 10/15/20 Rx Diphenoxylate HCl/Atropine 2 tab PO TIDPRN PRN tab 10/15/20 Rx [Lomotil] - History PMHx: DM1 with R BKA, ESRD on HD, HTN, HLD, substance use (marijuana, PCP, tobacco), hx CVA x2, hx of DVT, anemia of chronic disease, chronic diarrhea, seizure disorder PSHx: R BKA, fistula placements FHx: non-contributory Social: tobacco use 1/2 ppd, smokes marijuana, uses PCP - Review of Systems General: reports: fatigue. denies: fever/chills, weight/appetite/sleep changes Eyes: denies: eye pain, vision changes ENT: denies: nasal congestion, rhinorrhea Respiratory: denies: cough, congestion, shortness of breath Cardiovascular: denies: chest pain, palpitation, edema Gastrointestinal: reports: diarrhea. denies: nausea, vomiting, constipation Genitourinary: denies: dysuria, polyuria Skin: denies: rashes, lesions Musculoskeletal: denies: pain, tenderness Neurological: denies: syncope, seizure Psychological: denies: anxiety, depression - Vital signs BP: 109/45 HR: 96 RR: 15 Tmax: 99.2 Pox: 98% on RA Wt: 61.7 kg - Physical Exam Constitutional: NAD, awake, alert and oriented HEENT: PERRLA, EOMI Neck: FROM, no JVD Heart: RRR, normal S1/S2 Lungs: CTAB, no respiratory distress, no wheezing Abdomen: soft, non-tender, bowel sounds present Musculoskeletal: ROM grossly normal -Musculoskeletal: R BKA Neurological: no focal deficit, CN II-XII intact Skin: no rash/lesions, no jaundice Heme/Lymphatic: no purpura, no petechia Psychiatric: normal mood and affect, intact recent and remote memory FMR H&P: Results - Labs Result Diagrams: 10/28/20 08:14 10/28/20 11:00 Lab results: WBC 8.6 thou/uL (4.8-10.8) 10/28/20 08:14 Hgb 8.0 g/dL (14.0-18.0) L 10/28/20 08:14 Hct 25.6 % (42.0-52.0) L 10/28/20 08:14 MCV 88.5 fL (78.0-98.0) 10/28/20 08:14 Plt Count 196 thou/uL (130-400) 10/28/20 08:14 Neutrophils % 70.4 % (42.0-75.0) 10/28/20 08:14 Sodium 138 mmol/L (136-145) 10/28/20 08:14 Potassium 5.5 mmol/L (3.5-5.1) H 10/28/20 08:14 Chloride 99 mmol/L (98-107) 10/28/20 08:14 Carbon Dioxide 18 mmol/L (22-29) L 10/28/20 08:14 BUN 58 mg/dL (8.9-20.6) H 10/28/20 08:14 Creatinine 5.84 mg/dL (0.7-1.3) H 10/28/20 08:14 Glucose 682 mg/dL (70-105) H* 10/28/20 08:14 Calcium 8.5 mg/dL (7.8-10.44) 10/28/20 08:14 Total Bilirubin 0.3 mg/dL (0.2-1.2) 10/28/20 08:14 AST 29 U/L (5-34) 10/28/20 08:14 ALT 25 U/L (8-55) 10/28/20 08:14 Alkaline Phosphatase 146 U/L (40-110) H 10/28/20 08:14 Serum Total Protein 7.1 g/dL (6.0-8.3) 10/28/20 08:14 Albumin 3.1 g/dL (3.5-5.0) L 10/28/20 08:14 - Radiology Interpretation Chest x-ray Status: image reviewed by me, report reviewed by me Additional comment: No acute abnormalities FMR H&P: A/P - Plan DMI with labile BGs Hx of noncompliance -Administer 10 U regular insulin IV and repeat BMP similar to initial. Will administer 10 more Units and start levemir 30 U, home am insulin. Check BMP at 1400, BG 1300 and needs dialysis to help with acidosis. -Hypoglycemia protocol -ACHS checks L leg wound Sacral Decubitus Ulcer -Wound care consulted ESRD on HD -Nephro, Dr. Palmer, consulted to schedule HD. Appreciate recs -Likely contributing to his acidosis Anemia of chronic disease -Hb 10.3, improved from last admission -am CBC Hx of CVA x2 -Stable, continue home ASA Hx of DVTs -continue home eliquis Substance abuse -Has hx of PCP and marijuana use -Tobacco use -Encourage cessation Seizure disorder -Continue home meds -Seizure precautions Chronic diarrhea -Stable -continue home meds HLD -continue home meds HTN -held home meds R BKA Code: Full PCP: LBuse/Tamp DVT: Eliquis Dispo: Admit to medical, obs with close follow up FMR H&P: Upper Level - Plan Date/Time: 10/28/20 1005 I, [], have evaluated this patient and agree with findings/plan as outlined by international nurse resident. Pertinent changes/additions are listed here. Addendum - Attending - Attending Attestation Date/Time: 10/28/20 2172 I personally evaluated the patient and discussed the management with Dr. Dubose. I agree with the History, Examination, Assessment and Plan documented above with any addition or exceptions noted below. Patient here with medication noncompliance, hyperglycemia, and very mild DKA. He is very well known to our service. We will admit, IV fluids gentle, Insulin, and recheck labs to see if we can resolve his DKA without IV insulin. Will like Nephro consult while here for HD. Further mgmt pending clinical course.
[2020-10-28] MEDS ORDERED: Insulin Regular 300 UNITS/3 ML VIAL ONE (10:10)
[2020-10-28 11:40] LABS: Anion Gap 24 mmol/L (10-20); BUN (Urea Nitrogen) 58 mg/dL (8.9-20.6); Calc. Creatinine Clearance 0 mL/min (70-130); Carbon Dioxide 17 mmol/L (22-29); Chloride 101 mmol/L (98-107); Potassium 5.3 mmol/L (3.5-5.1); Sodium 137 mmol/L (136-145)
[2020-10-28 11:46] LABS: Glucose 674 mg/dL (70-105)
[2020-10-28] MEDS ORDERED: Insulin Glargine 30 UNITS in Pre-Filled Syringe 1 EACH SC SCH (12:00)
[2020-10-28] MEDS ORDERED: Insulin Regular 300 UNITS/3 ML VIAL SC SCH (13:30)
[2020-10-28 18:44] LABS: Anion Gap 15 mmol/L (10-20); BUN (Urea Nitrogen) 17 mg/dL (8.9-20.6); Calc. Creatinine Clearance 0 mL/min (70-130); Calcium 8.3 mg/dL (7.8-10.44); Carbon Dioxide 27 mmol/L (22-29); Chloride 97 mmol/L (98-107); Glucose 103 mg/dL (70-105); Potassium 2.9 mmol/L (3.5-5.1); Sodium 136 mmol/L (136-145)
[2020-10-28] MEDS ORDERED: Dextrose 50% Abboject 50 ML SYRINGE SLOW IVP PRN (19:37)
[2020-10-28] MEDS ORDERED: HumaLOG 300 UNITS/3 ML VIAL SC PRN (19:37)
[2020-10-28] MEDS ORDERED: Dextrose 5% in Water 1,000 ML IV PRN (19:37)
[2020-10-28 21:00] LABS: Anion Gap 16 mmol/L (10-20); BUN (Urea Nitrogen) 26 mg/dL (8.9-20.6); Calc. Creatinine Clearance 0 mL/min (70-130); Calcium 8.5 mg/dL (7.8-10.44); Carbon Dioxide 25 mmol/L (22-29); Chloride 100 mmol/L (98-107); Glucose 50 mg/dL (70-105); Sodium 137 mmol/L (136-145)
[2020-10-28] MEDS ORDERED: Atorvastatin Calcium 20 MG TAB PO SCH (21:00)
[2020-10-28] MEDS: levETIRAcetam 500 MG TAB PO SCH (22:02)
[2020-10-28] MEDS: Apixaban 2.5 MG TAB PO SCH (22:02)
[2020-10-29 00:35] VITALS: BMI 19.5
[2020-10-29] MEDS ORDERED: Loperamide HCl 2 MG CAP PO PRN (00:35)
--- NOTE | 2020-10-29 07:17 | RAD ---
RADIOGRAPH CHEST 1 VIEW: DATE: 10/28/2020 TIME: 8:21 AM HISTORY: 39-year-old male with cough COMPARISON: 10/18/2020 FINDINGS: The right pleural effusion appears larger now, and more loculated, with opacification of lower three quarters of right lung. New cardiac shift to the left. Subpulmonic component of pleural effusion as well as posterior layering. No consolidation or pulmonary edema in the left lung. No pneumothorax. Left brachiocephalic, left sub clavian, and left axillary vascular stents. No cardiomegaly. IMPRESSION: Interval increase in volume of loculated right pleural effusion.
[2020-10-29] MEDS ORDERED: Calcitriol 0.25 MCG CAP PO SCH (09:00)
[2020-10-29] MEDS ORDERED: Aspirin 81 mg Enteric Coated Tablet PO SCH (09:00)
[2020-10-29] MEDS ORDERED: Insulin Glargine 30 UNITS in Pre-Filled Syringe 1 EACH SC SCH (09:00)
[2020-10-29] MEDS ORDERED: Non-Formulary Item 1 EACH (Insulin Detemir [Levemir] 100 UNIT/ML Vial) SQ SCH ×2 (09:00→21:00)
[2020-10-29 09:12] VITALS: TEMP 98.8
[2020-10-29] MEDS: Apixaban 2.5 MG TAB PO SCH (09:15)
[2020-10-29] MEDS: levETIRAcetam 500 MG TAB PO SCH (09:15)
--- NOTE | 2020-10-29 11:30 | PDOC.FM ---
- Subjective Subjective: Pt doing well. He feels much better this morning. He tolerated dialysis yesterday. Denies fever, chills. He does have diarrhea as usual. - Objective Vital Signs & Weight: Vital Signs (12 hours) Temp Pulse Resp BP Pulse Ox 10/29/20 08:06 98.8 F 84 18 88/54 L 94 L 10/29/20 04:12 97.6 F 82 18 135/80 100 10/29/20 00:36 97.2 F L 85 16 103/60 100 Weight Weight 63.458 kg I&O: 10/28/20 10/29/20 10/30/20 06:59 06:59 06:59 Intake Total 900 Balance 900 Result Diagrams: 10/28/20 08:14 10/28/20 20:19 Phys Exam - Physical Examination Constitutional: NAD HEENT: PERRLA, sclera anicteric Neck: no JVD, full ROM Respiratory: no wheezing, clear to auscultation bilateral Cardiovascular: RRR, no significant murmur Gastrointestinal: soft, positive bowel sounds Musculoskeletal: no edema Neurological: non-focal Psychiatric: normal affect, A&O x 3 Skin: no rash, cap refill <2 seconds Dx/Plan - Plan Plan: DMI with labile BGs Hx of noncompliance -Administer am Lantus -Discharge to home -Acidosis improved with dialysis L leg wound Sacral Decubitus Ulcer -Wound care consulted ESRD on HD -Nephro, Dr. Palmer, consulted to schedule HD. Appreciate recs Anemia of chronic disease -Hb 10.3, improved from last admission -am CBC Hx of CVA x2 -Stable, continue home ASA Hx of DVTs -continue home eliquis Substance abuse -Has hx of PCP and marijuana use -Tobacco use -Encourage cessation Seizure disorder -Continue home meds -Seizure precautions Chronic diarrhea -Stable -continue home meds HLD -continue home meds HTN -held home meds R BKA Code: Full PCP: LBuse/Tamp DVT: Eliquis Dispo: discharge to home Addendum - Attending - Attending Attestation Date/Time: 10/29/20 9882 I personally evaluated the patient and discussed the management with Dr. Dubose. I agree with the History, Examination, Assessment and Plan documented above with any addition or exceptions noted below. Patient and lab status improved. If blood sugars remain well controlled today, will be stable for discharge.
[2020-10-29 14:02] VITALS: BP 118/61
--- NOTE | 2020-10-29 17:40 | PRG ---
DATE OF SERVICE: 10/29/2020 OBJECTIVE: VITAL SIGNS: The patient noted with the following vital signs; temperature 98.8, pulse 86, respiratory rate of 18, O2 saturations are 94%, and blood pressure 118/61. HEENT: Unremarkable. CARDIOVASCULAR SYSTEM: First and second heart sounds were heard. RESPIRATORY SYSTEM: Clear to auscultation. DIGESTIVE SYSTEM: Revealed a benign abdomen. Positive bowel sounds. EXTREMITIES: No peripheral edema. SKIN: No new gross rash. LYMPHATICS: No peripheral lymphadenopathy. IMPRESSION: 1. End-stage renal disease, on hemodialysis. 2. Medical noncompliance. 3. Diabetes mellitus, type 1. PLAN: 1. The patient dialyzed yesterday. 2. Further management will be dependent on the clinical course as well as further recommendation from the Primary Service. Job ID: [id number]
[2020-10-29] MEDS ORDERED: Insulin Glargine 10 UNITS in Pre-Filled Syringe 1 EACH SC SCH (21:00)
--- NOTE | 2020-10-30 12:45 | DIS ---
DATE OF ADMISSION: 10/28/2020 DATE OF DISCHARGE: 10/29/2020 RESIDENT: Abdulkadir Dubose DO ADMITTING ATTENDING: Dr. Efraín Mckinley. DISCHARGE ATTENDING: Dr. Efraín Mckinley. CONSULTS: Nephrology, Dr. Beau Palmer. PROCEDURES: Chest x-ray on 10/28/2020 revealed no interval increase in volume of loculated right pleural effusion. PRIMARY DIAGNOSES: 1. Insulin-dependent diabetes with hyperglycemia. 2. End-stage renal disease. 3. Metabolic Acidosis. SECONDARY DIAGNOSES: 1. Chronic diarrhea. 2. Seizure disorder. 3. Substance abuse. 4. Noncompliance with medications. 5. History of deep venous thromboses. 6. History of CVA x2. 7. Anemia of chronic disease. 8. Left leg wound. 9. Sacral decubitus ulcer. 10. Hyperlipidemia. 11. Hypertension. 12. Right below-knee amputation. DISCHARGE MEDICATIONS: 1. Apixaban 2.5 mg p.o. b.i.d. 2. Tylenol 500 mg p.o. q.4 hours p.r.n. pain. 3. Aspirin 81 mg p.o. daily. 4. Atorvastatin 20 mg p.o. at night. 5. Cepacol sore throat lozenges p.r.n. daily. 6. Dulcolax 10 mg per rectal daily. 7. Calcitriol 0.25 mcg p.o. daily. 8. Clonidine 0.1 mg p.o. q.6 p.r.n. hypertension. 9. Aranesp 40 mcg subcu q.7 days. 10. Diphenhydramine 25 mg p.o. q.6 hours p.r.n. itching. 11. Lomotil two tabs p.o. t.i.d. p.r.n. diarrhea, loose stools. 12. Vitamin D2 of 50,000 units p.o. q.7 days. 13. Famotidine 20 mg p.o. b.i.d. 14. Guaifenesin 200 mg p.o. q.4 hours p.r.n. cough. 15. Levemir 10 units subcu h.s., Levemir 30 units subcu q.a.m. 16. Insulin lispro 5 units subcu t.i.d. 17. Keppra 500 mg p.o. b.i.d. 18. Loperamide 2 mg p.o. q.4 hours p.r.n. diarrhea. 19. MiraLAX 17 g p.o. daily. 20. Sertraline 100 mg p.o. daily. 21. Renvela 2400 mg p.o. t.i.d. 22. Simethicone 80 mg p.o. t.i.d. p.r.n. gas pain. DISCONTINUED MEDICATIONS: None. HISTORY OF PRESENT ILLNESS/HOSPITAL COURSE: Silvestre Brush is a 39-year-old gentleman with history of type 1 diabetes, ESRD, noncompliance with medications, and polysubstance abuse, who presented to the emergency department with history of not taking his nighttime insulin. He states he did not take his nighttime insulin because he was not eating at that time. Due to this, he ended up coming in feeling very fatigued and was noted to have a glucose of 674, anion gap of 24, bicarb 17, potassium 5.3, sodium 137, creatinine 5.84, beta-hydroxybutyrate 3.11. Beta-hydroxybutyrate was on the lower end of normal for this patient. He typically comes in and has elevations as great as 5, 8, even 12. His bicarb was also on the higher end of normal for the patient's presentation typically. Due to his hyperglycemia, we did not feel he required insulin drip, so we started him on regular insulin 10 units. He received two doses of this. He also was taken up for dialysis. Subsequently, after these interventions and 1 L of fluid, the patient's carbon dioxide returned to normal at 27, anion gap of 15. Next day, the patient felt tremendously better and was ready for discharge. He had no questions or concerns and was going to follow up on Monday for his next dialysis. DISPOSITION: Stable. DISCHARGE INSTRUCTIONS: 1. Location: [facility]. 2. Diet: Diabetic diet. 3. Activity: As tolerated by the patient. 4. Followup: Follow up with [facility], Dr. Mela Hardwick, within the next 7 to 10 days. 5. Follow up with dialysis on Monday, Monday, and Monday schedule. Job ID: [id number] [facility]
== END 2020-10-29 17:00 | disposition home or self-care (01) ==
LOC: ERS 07:46 → INTOOBSV 12:05 → ERHOLD 12:05 → SURG B 19:28
PROVIDERS: ADMIT Student in an Organized Health Care Education/Training Program; ATTEND Student in an Organized Health Care Education/Training Program
DX: E10.10 Type 1 diabetes mellitus with ketoacidosis without coma (principal); I12.0 Hypertensive chronic kidney disease with stage 5 chronic kidney disease or end stage renal disease; E10.22 Type 1 diabetes mellitus with diabetic chronic kidney disease; N18.6 End stage renal disease; D63.1 Anemia in chronic kidney disease; K52.9 Noninfective gastroenteritis and colitis, unspecified; G40.909 Epilepsy, unspecified, not intractable, without status epilepticus; F12.10 Cannabis abuse, uncomplicated; F16.10 Hallucinogen abuse, uncomplicated; E10.621 Type 1 diabetes mellitus with foot ulcer; L97.529 Non-pressure chronic ulcer of other part of left foot with unspecified severity; L89.159 Pressure ulcer of sacral region, unspecified stage; E78.5 Hyperlipidemia, unspecified; F17.210 Nicotine dependence, cigarettes, uncomplicated; Z86.718 Personal history of other venous thrombosis and embolism; Z86.73 Personal history of transient ischemic attack (TIA), and cerebral infarction without residual deficits; Z91.14 Patient's other noncompliance with medication regimen; Z79.01 Long term (current) use of anticoagulants; Z79.82 Long term (current) use of aspirin; Z79.899 Other long term (current) drug therapy; Z88.0 Allergy status to penicillin; Z89.511 Acquired absence of right leg below knee; Z99.2 Dependence on renal dialysis
CPT/HCPCS: 36415; 36416; 71045; 80053; 82010; 85025; 90935; 96374; 96376; G0257; G0378; J1815

== ENCOUNTER 2020-10-31 14:48 | Emergency (ER) | payer MEDICARE, MEDICAID | END 2020-10-31 16:17 | disposition home or self-care (01) | LOC: ERS 14:48 | DX: E10.649 Type 1 diabetes mellitus with hypoglycemia without coma (principal); I12.0 Hypertensive chronic kidney disease with stage 5 chronic kidney disease or end stage renal disease; N18.6 End stage renal disease; E78.5 Hyperlipidemia, unspecified; E78.00 Pure hypercholesterolemia, unspecified; E10.22 Type 1 diabetes mellitus with diabetic chronic kidney disease; F17.210 Nicotine dependence, cigarettes, uncomplicated; Z99.2 Dependence on renal dialysis; Z86.73 Personal history of transient ischemic attack (TIA), and cerebral infarction without residual deficits; Z79.82 Long term (current) use of aspirin; Z79.899 Other long term (current) drug therapy; Z79.01 Long term (current) use of anticoagulants | CPT/HCPCS: 36416; 99281 ==

== ENCOUNTER 2020-11-04 08:07 | Inpatient (IN) | payer MEDICARE, MEDICAID ==
[2020-11-04 08:37] LABS: Base Excess-Venous -10.5 mmol/L (-2.0 to 3.0); Bicarbonate (HCO3v) 18.4 mmol/L (22.0-28.0); CO2 Tension (PvCO2) 55.4 mmHg (40.0-50.0); Calcium, Ionized 0.99 mmol/L (1.15-1.33); Chloride 104 mmol/L (98-107); Hemoglobin - Calc 9.4 g/dL (14.0-18.0); Potassium 7.3 mmol/L (3.5-5.1); Sodium 125 mmol/L (138-145); T. Carbon Dioxide 20.1 mmol/L (22.0-28.0); vO2 Saturation-calc 67.6 % (60.0-85.0)
[2020-11-04 08:53] LABS: Hemoglobin 8.6 g/dL (14.0-18.0); Mean Corpuscular HGB CONC 30.8 g/dL (32.0-36.0); Mean Corpuscular Hemoglobin 27.7 pg (27.0-31.0); Mean Platelet Volume 11.8 fL (7.4-10.4); Platelet Count 246 thou/uL (130-400); RBC Distribution Width 16.1 % (11.5-14.5); Red Blood Cell (RBC) Count 3.11 mill/uL (4.70-6.10); White Blood Cell (WBC) Count 9.1 thou/uL (4.8-10.8)
[2020-11-04] MEDS ORDERED: INSULIN REGULAR IN 0.9 % NACL 100 UNIT/100 ML BAG ONE (08:55)
[2020-11-04 09:13] LABS: Magnesium 3.2 mg/dL (1.6-2.6); Phosphorus 8.3 mg/dL (2.3-4.7)
[2020-11-04 09:20] LABS: Band 12 % (5-11); Hypochromia SLIGHT = 6-15 cells (100X) (0-5/hpf); Lymphocytes 11 % (21-51); MDiff Complete? YES; Monocytes 14 % (0-10); Neutrophil 63 % (42-75); Platelet Morphology Comment Appears Adequate; Polychromasia SLIGHT = 2-3 cells (100X) (0-2/hpf)
[2020-11-04 09:32] LABS: ALT (SGPT) 10 U/L (8-55); AST (SGOT) 11 U/L (5-34); Alkaline Phosphatase 107 U/L (40-110); Anion Gap 21 mmol/L (10-20); BUN (Urea Nitrogen) 111 mg/dL (8.9-20.6); Bilirubin, Total 0.4 mg/dL (0.2-1.2); CK (CPK) 78 U/L (30-200); Calc. Creatinine Clearance 0 mL/min (70-130); Calcium 7.9 mg/dL (7.8-10.44); Carbon Dioxide 19 mmol/L (22-29); Chloride 96 mmol/L (98-107); Sodium 129 mmol/L (136-145)
[2020-11-04 09:48] LABS: Glucose 739 mg/dL (70-105); Potassium 7.3 mmol/L (3.5-5.1)
[2020-11-04 09:52] LABS: CKMB 3.9 ng/mL (0-6.6)
[2020-11-04] MEDS ORDERED: Lidocaine 1% (PF) 30 ML VIAL ONE (10:32)
[2020-11-04] MEDS ORDERED: Cefepime 2 GM VIAL ONE ×2 (10:58→20:31)
[2020-11-04] MEDS ORDERED: Vancomycin 1 GM/200 ML BAG ONE (10:58)
[2020-11-04] MEDS ORDERED: Calcium Chloride 1 GM/10 ML Abboject SYRINGE ONE (10:58)
[2020-11-04] MEDS ORDERED: Sodium Bicarb 50 MEQ/50 ML Abboject 8.4% SYRINGE ONE (10:58)
[2020-11-04] MEDS ORDERED: NS 0.9% w/ 20 MEQ KCL 1,000 ML IV PRN ×2 (11:10)
[2020-11-04] MEDS ORDERED: Senokot S 8.6-50 MG TAB PO PRN (11:10)
[2020-11-04] MEDS ORDERED: Electrolyte Replacement Protocol 1 EACH IVPB ONE (11:10)
[2020-11-04] MEDS ORDERED: Ondansetron ODT 4 MG TAB PO PRN (11:10)
[2020-11-04] MEDS ORDERED: Acetaminophen 325 MG TAB PO PRN (11:10)
[2020-11-04] MEDS ORDERED: D5 1/2 NS w/20 mEq KCL 1,000 ML IV PRN (11:10)
[2020-11-04] MEDS ORDERED: Dextrose 5 %-0.45 % NaCl 1,000 ML IV PRN (11:10)
[2020-11-04] MEDS ORDERED: Ondansetron PF 4 MG/2 ML Vial IVP PRN (11:10)
[2020-11-04] MEDS ORDERED: Sodium Chloride 0.9% 1,000 ML IV PRN ×4 (11:10)
[2020-11-04] MEDS ORDERED: HUMULIN R 100 UNITS in Sodium Chloride 0.9% 100 ML IVPB SCH (11:15)
[2020-11-04] MEDS ORDERED: Norepinephrine 8 MG/0.9% NS 250 ML IVPB SCH (11:30)
[2020-11-04] MEDS ORDERED: Norepinephrine 8 MG/0.9% NS 250 ML ONE (11:46)
[2020-11-04 12:04] LABS: Anion Gap 21 mmol/L (10-20); BUN (Urea Nitrogen) 103 mg/dL (8.9-20.6); Calc. Creatinine Clearance 0 mL/min (70-130); Calcium 8.3 mg/dL (7.8-10.44); Carbon Dioxide 18 mmol/L (22-29); Chloride 100 mmol/L (98-107); Potassium 5.8 mmol/L (3.5-5.1); Sodium 133 mmol/L (136-145)
[2020-11-04 12:24] LABS: Glucose 691 mg/dL (70-105)
[2020-11-04 12:41] LABS: SARS-CoV-2 NAA Rapid Test Not Detected (NotDetected)
[2020-11-04 13:48] LABS: Glucose 762 mg/dL (70-105)
[2020-11-04] MEDS ORDERED: Cefepime 2 GM in Sodium Chloride 0.9% 100 ML IVPB SCH (14:00)
[2020-11-04 14:55] LABS: Glucose 575 mg/dL (70-105)
[2020-11-04 15:42] LABS: Anion Gap 23 mmol/L (10-20); BUN (Urea Nitrogen) 96 mg/dL (8.9-20.6); Calc. Creatinine Clearance 0 mL/min (70-130); Calcium 8.5 mg/dL (7.8-10.44); Carbon Dioxide 17 mmol/L (22-29); Chloride 100 mmol/L (98-107); Glucose 421 mg/dL (70-105); Potassium 5.4 mmol/L (3.5-5.1); Sodium 135 mmol/L (136-145)
[2020-11-04 16:25] LABS: Glucose 322 mg/dL (70-105)
[2020-11-04 16:27] LABS: Lactic Acid 1.9 mmol/L (0.5-2.2)
[2020-11-04 17:23] LABS: Glucose 237 mg/dL (70-105)
[2020-11-04 17:29] LABS: Troponin I 0.122 ng/mL (< 0.028)
[2020-11-04 18:16] LABS: Glucose 169 mg/dL (70-105)
[2020-11-04 19:27] LABS: Glucose 132 mg/dL (70-105)
[2020-11-04] MEDS ORDERED: SODIUM CHLORIDE 0.9% IVPB SCH (21:00)
[2020-11-04] MEDS ORDERED: VANCOMYCIN HCL IVPB SCH (21:00)
[2020-11-04 21:23] LABS: Anion Gap 22 mmol/L (10-20); BUN (Urea Nitrogen) 55 mg/dL (8.9-20.6); Calc. Creatinine Clearance 12 mL/min (70-130); Calcium 8.4 mg/dL (7.8-10.44); Carbon Dioxide 21 mmol/L (22-29); Chloride 100 mmol/L (98-107); Glucose 106 mg/dL (70-105); Potassium 4.7 mmol/L (3.5-5.1); Sodium 138 mmol/L (136-145)
[2020-11-04 21:26] LABS: Glucose 107 mg/dL (70-105)
[2020-11-04 22:33] LABS: Glucose 122 mg/dL (70-105)
[2020-11-04] MEDS ORDERED: Vancomycin HCl 750 MG in Sodium Chloride 0.9% 250 ML 250 ML IVPB SCH (23:45)
[2020-11-04] MEDS ORDERED: Vancomycin HCl 500 MG in Sodium Chloride 0.9% 100 ML IVPB SCH (23:45)
[2020-11-04] MEDS ORDERED: Vancomycin 1 GM in Premix Bag 1 BAG IVPB SCH (23:45)
[2020-11-04] MEDS ORDERED: HOLD VANCOMYCIN FOR LEVEL >20 FS SCH (23:45)
[2020-11-04] MEDS ORDERED: Vancomycin HCl 250 MG in Sodium Chloride 0.9% 100 ML IVPB SCH (23:45)
[2020-11-05 00:01] LABS: Anion Gap 20 mmol/L (10-20); BUN (Urea Nitrogen) 58 mg/dL (8.9-20.6); Calc. Creatinine Clearance 12 mL/min (70-130); Calcium 8.4 mg/dL (7.8-10.44); Carbon Dioxide 21 mmol/L (22-29); Chloride 100 mmol/L (98-107); Glucose 161 mg/dL (70-105); Potassium 4.7 mmol/L (3.5-5.1); Sodium 136 mmol/L (136-145)
[2020-11-05] MEDS ORDERED: Norepinephrine 8 MG/0.9% NS 250 ML ONE (03:03)
[2020-11-05] MEDS ORDERED: Insulin Glargine 10 UNITS in Pre-Filled Syringe 1 EACH SC SCH ×2 (03:30→21:00)
[2020-11-05 03:31] LABS: ALT (SGPT) 7 U/L (8-55); AST (SGOT) 9 U/L (5-34); Alkaline Phosphatase 91 U/L (40-110); Anion Gap 23 mmol/L (10-20); BUN (Urea Nitrogen) 58 mg/dL (8.9-20.6); Bilirubin, Total 0.3 mg/dL (0.2-1.2); Calc. Creatinine Clearance 11 mL/min (70-130); Calcium 8.2 mg/dL (7.8-10.44); Carbon Dioxide 19 mmol/L (22-29); Chloride 99 mmol/L (98-107); Globulin 4.2 g/dL (2.4-3.5); Glucose 218 mg/dL (70-105); Potassium 4.7 mmol/L (3.5-5.1); Protein, Total 7.2 g/dL (6.0-8.3); Sodium 136 mmol/L (136-145)
[2020-11-05 04:20] LABS: Hemoglobin 8.9 g/dL (14.0-18.0); Mean Corpuscular HGB CONC 31.9 g/dL (32.0-36.0); Mean Corpuscular Hemoglobin 27.4 pg (27.0-31.0); Mean Corpuscular Volume 85.9 fL (78.0-98.0); Mean Platelet Volume 11.1 fL (7.4-10.4); Platelet Count 276 thou/uL (130-400); RBC Distribution Width 15.9 % (11.5-14.5); Red Blood Cell (RBC) Count 3.23 mill/uL (4.70-6.10); White Blood Cell (WBC) Count 10.2 thou/uL (4.8-10.8)
[2020-11-05 04:21] LABS: Band 8 % (5-11); Hypochromia SLIGHT = 6-15 cells (100X) (0-5/hpf); Lymphocytes 1 % (21-51); MDiff Complete? YES; Monocytes 17 % (0-10); Neutrophil 74 % (42-75); Platelet Morphology Comment Appears Adequate
[2020-11-05 05:31] LABS: Glucose 246 mg/dL (70-105)
[2020-11-05] MEDS ORDERED: Lidocaine 1% (PF) 30 ML VIAL ONE (05:58)
[2020-11-05 08:02] LABS: Anion Gap 23 mmol/L (10-20); BUN (Urea Nitrogen) 58 mg/dL (8.9-20.6); Calc. Creatinine Clearance 11 mL/min (70-130); Calcium 8.3 mg/dL (7.8-10.44); Carbon Dioxide 19 mmol/L (22-29); Chloride 100 mmol/L (98-107); Glucose 243 mg/dL (70-105); Potassium 5.2 mmol/L (3.5-5.1); Sodium 137 mmol/L (136-145)
[2020-11-05] MEDS ORDERED: Insulin Glargine 30 UNITS in Pre-Filled Syringe 1 EACH SC SCH (09:00)
[2020-11-05] MEDS ORDERED: Cefepime 1 GM in Sodium Chloride 0.9% 100 ML IVPB SCH (10:00)
[2020-11-05] MEDS ORDERED: Simethicone Chewable 80 MG TAB PO PRN (10:11)
[2020-11-05] MEDS ORDERED: [UNRECOGNIZED DRUG - OTHER] SC SCH (10:15)
[2020-11-05] MEDS ORDERED: DARBEPOETIN ALFA IN POLYSORBAT SC SCH ×2 (10:15→10:30)
[2020-11-05] MEDS ORDERED: Non-Formulary Item 1 EACH (Insulin Detemir [Levemir] 30 UNIT) SQ SCH (10:17)
[2020-11-05 10:40] LABS: Anion Gap 20 mmol/L (10-20); BUN (Urea Nitrogen) 61 mg/dL (8.9-20.6); Calc. Creatinine Clearance 11 mL/min (70-130); Calcium 8.1 mg/dL (7.8-10.44); Carbon Dioxide 20 mmol/L (22-29); Chloride 101 mmol/L (98-107); Glucose 231 mg/dL (70-105); Potassium 5.1 mmol/L (3.5-5.1); Sodium 136 mmol/L (136-145); Vancomycin, Random 10.9 ug/mL (See Comment)
[2020-11-05] MEDS ORDERED: HumaLOG 300 UNITS/3 ML VIAL SC SCH (12:00)
[2020-11-05] MEDS: Sevelamer Carbonate 800 MG TAB PO SCH ×2 (12:29→17:58)
[2020-11-05] MEDS ORDERED: HumaLOG 300 UNITS/3 ML VIAL ONE (12:33)
[2020-11-05] MEDS: HumaLOG 300 UNITS/3 ML VIAL SC SCH ×2 (12:36→18:00)
[2020-11-05 16:29] LABS: Anion Gap 19 mmol/L (10-20); BUN (Urea Nitrogen) 61 mg/dL (8.9-20.6); Calc. Creatinine Clearance 10 mL/min (70-130); Calcium 8.1 mg/dL (7.8-10.44); Carbon Dioxide 23 mmol/L (22-29); Chloride 101 mmol/L (98-107); Glucose 167 mg/dL (70-105); Potassium 5.1 mmol/L (3.5-5.1); Sodium 138 mmol/L (136-145)
[2020-11-05] MEDS ORDERED: HumaLOG 300 UNITS/3 ML VIAL SC PRN (17:05)
[2020-11-05] MEDS ORDERED: Dextrose 5% in Water 1,000 ML IV PRN (20:54)
[2020-11-05] MEDS ORDERED: Non-Formulary Item 1 EACH (Insulin Detemir [Levemir] 100 UNIT/ML Vial) SQ SCH (21:00)
[2020-11-05] MEDS: Apixaban 2.5 MG TAB PO SCH (21:03)
[2020-11-05] MEDS: Dextrose 50% Abboject 50 ML SYRINGE SLOW IVP PRN (21:03)
[2020-11-05] MEDS: levETIRAcetam 500 MG TAB PO SCH (21:03)
[2020-11-05] MEDS: Atorvastatin Calcium 20 MG TAB PO SCH (21:03)
[2020-11-06] MEDS: Dextrose 50% Abboject 50 ML SYRINGE SLOW IVP PRN ×3 (00:01→11:28)
[2020-11-06 06:00] LABS: Anion Gap 19 mmol/L (10-20); BUN (Urea Nitrogen) 67 mg/dL (8.9-20.6); Calc. Creatinine Clearance 10 mL/min (70-130); Calcium 7.7 mg/dL (7.8-10.44); Carbon Dioxide 23 mmol/L (22-29); Chloride 103 mmol/L (98-107); Potassium 5.2 mmol/L (3.5-5.1); Sodium 140 mmol/L (136-145)
[2020-11-06 06:07] LABS: Glucose 53 mg/dL (70-105)
[2020-11-06 06:25] LABS: Hemoglobin 6.8 g/dL (14.0-18.0); Mean Corpuscular HGB CONC 31.2 g/dL (32.0-36.0); Mean Corpuscular Hemoglobin 26.9 pg (27.0-31.0); Mean Corpuscular Volume 86.2 fL (78.0-98.0); Mean Platelet Volume 11.7 fL (7.4-10.4); Platelet Count 216 thou/uL (130-400); Red Blood Cell (RBC) Count 2.52 mill/uL (4.70-6.10); White Blood Cell (WBC) Count 11.6 thou/uL (4.8-10.8)
[2020-11-06 06:53] LABS: Band 16 % (5-11); Eosinophils 1 % (0-10); Lymphocytes 11 % (21-51); MDiff Complete? YES; Monocytes 4 % (0-10); Neutrophil 68 % (42-75)
[2020-11-06] MEDS ORDERED: Non-Formulary Item 1 EACH (Insulin Detemir [Levemir] 100 UNIT/ML Vial) SQ SCH (09:00)
[2020-11-06] MEDS: Sevelamer Carbonate 800 MG TAB PO SCH ×3 (09:31→17:28)
[2020-11-06] MEDS: Aspirin 81 mg Enteric Coated Tablet PO SCH (09:31)
[2020-11-06] MEDS: Calcitriol 0.25 MCG CAP PO SCH (09:31)
[2020-11-06] MEDS: levETIRAcetam 500 MG TAB PO SCH ×2 (09:32→20:49)
[2020-11-06 09:39] LABS: Vancomycin, Random 10.6 ug/mL (See Comment)
[2020-11-06] MEDS: Insulin Glargine 15 UNITS in Pre-Filled Syringe 1 EACH SC SCH (09:49)
[2020-11-06] MEDS: HumaLOG 300 UNITS/3 ML VIAL SC SCH ×3 (09:59→17:29)
[2020-11-06 11:53] LABS: Syphilis Antibody Nonreactive (Nonreactive); Syphilis Antibody Index 0.04 S/CO (<1.00 Non-Reactive)
[2020-11-06 11:55] LABS: HIV (1/2) Antibody/Antigen Non-Reactive (NonReactive); HIV 1/2 INDEX 0.19 S/CO (<1.00)
[2020-11-06] MEDS: Cefepime 1 GM in Sodium Chloride 0.9% 100 ML IVPB SCH (17:29)
[2020-11-06 18:25] LABS: Hemoglobin 8.7 g/dL (14.0-18.0); Mean Corpuscular HGB CONC 32.9 g/dL (32.0-36.0); Mean Corpuscular Hemoglobin 28.7 pg (27.0-31.0); Mean Corpuscular Volume 87.2 fL (78.0-98.0); Mean Platelet Volume 10.8 fL (7.4-10.4); Platelet Count 201 thou/uL (130-400); RBC Distribution Width 15.4 % (11.5-14.5); Red Blood Cell (RBC) Count 3.03 mill/uL (4.70-6.10); White Blood Cell (WBC) Count 15.6 thou/uL (4.8-10.8)
[2020-11-06] MEDS: Atorvastatin Calcium 20 MG TAB PO SCH (20:50)
[2020-11-06] MEDS: EPOETIN ALFA-EPBX (ESRD) 10,000 UNIT/ML VIAL SC SCH (20:50)
[2020-11-07] MEDS: Insulin Glargine 15 UNITS in Pre-Filled Syringe 1 EACH SC SCH (09:13)
[2020-11-07] MEDS: HumaLOG 300 UNITS/3 ML VIAL SC SCH ×3 (09:13→18:40)
[2020-11-07] MEDS: Calcitriol 0.25 MCG CAP PO SCH (09:14)
[2020-11-07] MEDS: Sevelamer Carbonate 800 MG TAB PO SCH ×3 (09:14→18:39)
[2020-11-07] MEDS: Apixaban 2.5 MG TAB PO SCH ×3 (09:14→22:09)
[2020-11-07] MEDS: levETIRAcetam 500 MG TAB PO SCH ×3 (09:14→22:08)
[2020-11-07 10:24] LABS: Hemoglobin 8.4 g/dL (14.0-18.0); Mean Corpuscular HGB CONC 32.6 g/dL (32.0-36.0); Mean Corpuscular Hemoglobin 28.5 pg (27.0-31.0); Mean Corpuscular Volume 87.4 fL (78.0-98.0); Mean Platelet Volume 11.1 fL (7.4-10.4); Platelet Count 205 thou/uL (130-400); RBC Distribution Width 15.3 % (11.5-14.5); Red Blood Cell (RBC) Count 2.96 mill/uL (4.70-6.10)
[2020-11-07 10:34] LABS: Band 17 % (5-11); Eosinophils 1 % (0-10); Lymphocytes 6 % (21-51); MDiff Complete? YES; Monocytes 3 % (0-10); Neutrophil 73 % (42-75)
[2020-11-07 10:37] LABS: Anion Gap 17 mmol/L (10-20); BUN (Urea Nitrogen) 32 mg/dL (8.9-20.6); Calc. Creatinine Clearance 16 mL/min (70-130); Calcium 8.2 mg/dL (7.8-10.44); Carbon Dioxide 25 mmol/L (22-29); Chloride 101 mmol/L (98-107); Glucose 281 mg/dL (70-105); Magnesium 2.2 mg/dL (1.6-2.6); Potassium 4.2 mmol/L (3.5-5.1); Sodium 139 mmol/L (136-145)
[2020-11-07] MEDS: Cefepime 1 GM in Sodium Chloride 0.9% 100 ML IVPB SCH (17:02)
[2020-11-07] MEDS: Atorvastatin Calcium 20 MG TAB PO SCH ×2 (21:57→22:08)
[2020-11-07] MEDS: Acetaminophen 500 MG TAB PO PRN (23:47)
[2020-11-07] MEDS: Loperamide HCl 2 MG CAP PO PRN (23:48)
[2020-11-08] MEDS: Dextrose 50% Abboject 50 ML SYRINGE SLOW IVP PRN (05:42)
[2020-11-08 06:00] LABS: Anion Gap 16 mmol/L (10-20); BUN (Urea Nitrogen) 39 mg/dL (8.9-20.6); Calc. Creatinine Clearance 13 mL/min (70-130); Calcium 8.4 mg/dL (7.8-10.44); Carbon Dioxide 23 mmol/L (22-29); Chloride 103 mmol/L (98-107); Potassium 4.4 mmol/L (3.5-5.1); Sodium 138 mmol/L (136-145)
[2020-11-08 06:03] LABS: Glucose 25 mg/dL (70-105)
[2020-11-08 06:07] LABS: Band 6 % (5-11); Eosinophils 1 % (0-10); Hemoglobin 8.3 g/dL (14.0-18.0); Lymphocytes 8 % (21-51); MDiff Complete? YES; Mean Corpuscular HGB CONC 30.5 g/dL (32.0-36.0); Mean Corpuscular Volume 88.5 fL (78.0-98.0); Mean Platelet Volume 11.2 fL (7.4-10.4); Monocytes 8 % (0-10); Neutrophil 77 % (42-75); Platelet Count 218 thou/uL (130-400); RBC Distribution Width 15.4 % (11.5-14.5); Red Blood Cell (RBC) Count 3.07 mill/uL (4.70-6.10); Target Cells SLIGHT = 2-5 cells (100X) (0-1/hpf); White Blood Cell (WBC) Count 20.5 thou/uL (4.8-10.8)
[2020-11-08] MEDS: HumaLOG 300 UNITS/3 ML VIAL SC SCH ×3 (08:50→17:42)
[2020-11-08] MEDS: Insulin Glargine 15 UNITS in Pre-Filled Syringe 1 EACH SC SCH (08:50)
[2020-11-08] MEDS: Aspirin 81 mg Enteric Coated Tablet PO SCH (08:51)
[2020-11-08] MEDS: Apixaban 2.5 MG TAB PO SCH ×2 (08:51→20:26)
[2020-11-08] MEDS: Sevelamer Carbonate 800 MG TAB PO SCH ×3 (08:51→17:42)
[2020-11-08] MEDS: levETIRAcetam 500 MG TAB PO SCH ×2 (08:51→20:26)
[2020-11-08] MEDS: Calcitriol 0.25 MCG CAP PO SCH (08:51)
[2020-11-08] MEDS: Loperamide HCl 2 MG CAP PO PRN (16:03)
[2020-11-08] MEDS: Cefepime 1 GM in Sodium Chloride 0.9% 100 ML IVPB SCH (16:03)
[2020-11-08] MEDS: Atorvastatin Calcium 20 MG TAB PO SCH (20:26)
[2020-11-09 05:16] LABS: Hemoglobin 7.9 g/dL (14.0-18.0); Platelet Count 236 thou/uL (130-400)
[2020-11-09 05:19] LABS: Anion Gap 15 mmol/L (10-20); BUN (Urea Nitrogen) 50 mg/dL (8.9-20.6); Calc. Creatinine Clearance 11 mL/min (70-130); Calcium 8.7 mg/dL (7.8-10.44); Carbon Dioxide 25 mmol/L (22-29); Chloride 102 mmol/L (98-107); Glucose 95 mg/dL (70-105); Potassium 4.8 mmol/L (3.5-5.1); Sodium 137 mmol/L (136-145)
[2020-11-09 07:44] LABS: White Blood Cell (WBC) Count 28.9 thou/uL (4.8-10.8)
[2020-11-09 08:09] LABS: Vancomycin, Random 6.6 ug/mL (See Comment)
[2020-11-09] MEDS: Sevelamer Carbonate 800 MG TAB PO SCH ×3 (09:15→17:49)
[2020-11-09] MEDS: HumaLOG 300 UNITS/3 ML VIAL SC SCH ×3 (09:15→17:49)
[2020-11-09] MEDS: Calcitriol 0.25 MCG CAP PO SCH (09:16)
[2020-11-09] MEDS: Insulin Glargine 15 UNITS in Pre-Filled Syringe 1 EACH SC SCH (09:16)
[2020-11-09] MEDS: levETIRAcetam 500 MG TAB PO SCH ×2 (11:36→20:50)
[2020-11-09 14:29] LABS: Ref Lab Test Ordered FECAL ELASTASE; Reference Lab Name LABCORP
[2020-11-09] MEDS: Cefepime 1 GM in Sodium Chloride 0.9% 100 ML IVPB SCH (17:49)
[2020-11-09 18:28] LABS: Hemoglobin 9.4 g/dL (14.0-18.0)
[2020-11-09] MEDS: Loperamide HCl 2 MG CAP PO PRN ×2 (18:30→22:21)
[2020-11-09] MEDS: Atorvastatin Calcium 20 MG TAB PO SCH (20:50)
[2020-11-09] MEDS ORDERED: HumaLOG 300 UNITS/3 ML VIAL SC PRN (21:42)
[2020-11-09] MEDS: HumaLOG 300 UNITS/3 ML VIAL SC PRN (22:15)
[2020-11-10] MEDS: HumaLOG 300 UNITS/3 ML VIAL SC PRN ×2 (03:32→21:50)
[2020-11-10 06:02] LABS: Anion Gap 14 mmol/L (10-20); BUN (Urea Nitrogen) 37 mg/dL (8.9-20.6); Calc. Creatinine Clearance 14 mL/min (70-130); Calcium 8.8 mg/dL (7.8-10.44); Carbon Dioxide 29 mmol/L (22-29); Glucose 177 mg/dL (70-105); Potassium 3.9 mmol/L (3.5-5.1)
[2020-11-10 06:05] LABS: Chloride 100 mmol/L (98-107); Sodium 139 mmol/L (136-145)
[2020-11-10 06:40] LABS: Hemoglobin 8.3 g/dL (14.0-18.0); Mean Corpuscular HGB CONC 30.2 g/dL (32.0-36.0); Mean Corpuscular Hemoglobin 26.7 pg (27.0-31.0); Mean Corpuscular Volume 88.5 fL (78.0-98.0); Mean Platelet Volume 10.8 fL (7.4-10.4); Platelet Count 237 thou/uL (130-400); RBC Distribution Width 15.2 % (11.5-14.5); White Blood Cell (WBC) Count 25.2 thou/uL (4.8-10.8)
[2020-11-10 07:50] LABS: Band 13 % (5-11); Bite Cells SLIGHT = 2-5 cells (100X) (0-1/hpf); Lymphocytes 9 % (21-51); MDiff Complete? YES; Metamyelocyte 1 % (0-0); Monocytes 10 % (0-10); Neutrophil 67 % (42-75); Platelet Morphology Comment Appears Adequate; Polychromasia MODERATE = 3-4 cells (100X) (0-2/hpf)
[2020-11-10] MEDS: Sevelamer Carbonate 800 MG TAB PO SCH ×3 (10:26→16:28)
[2020-11-10] MEDS: Calcitriol 0.25 MCG CAP PO SCH (10:26)
[2020-11-10] MEDS: levETIRAcetam 500 MG TAB PO SCH ×2 (10:26→21:50)
[2020-11-10] MEDS: Insulin Glargine 15 UNITS in Pre-Filled Syringe 1 EACH SC SCH (10:30)
[2020-11-10] MEDS: HumaLOG 300 UNITS/3 ML VIAL SC SCH ×4 (10:31→16:25)
[2020-11-10] MEDS: Vancomycin HCl 25 MG/ML Oral PO SCH ×2 (12:39→17:05)
[2020-11-10] MEDS: Loperamide HCl 2 MG CAP PO PRN (13:35)
[2020-11-10] MEDS: Cefepime 1 GM in Sodium Chloride 0.9% 100 ML IVPB SCH (16:25)
[2020-11-10] MEDS: Atorvastatin Calcium 20 MG TAB PO SCH (21:50)
[2020-11-11] MEDS: Vancomycin HCl 25 MG/ML Oral PO SCH ×4 (00:11→20:14)
[2020-11-11 05:43] LABS: Anion Gap 14 mmol/L (10-20); BUN (Urea Nitrogen) 44 mg/dL (8.9-20.6); Calc. Creatinine Clearance 12 mL/min (70-130); Calcium 8.7 mg/dL (7.8-10.44); Carbon Dioxide 22 mmol/L (22-29); Chloride 103 mmol/L (98-107); Glucose 125 mg/dL (70-105); Magnesium 2.3 mg/dL (1.6-2.6); Potassium 4.4 mmol/L (3.5-5.1); Sodium 135 mmol/L (136-145)
[2020-11-11 05:58] LABS: Hemoglobin 7.6 g/dL (14.0-18.0); Mean Corpuscular HGB CONC 31.3 g/dL (32.0-36.0); Mean Corpuscular Hemoglobin 27.7 pg (27.0-31.0); Mean Corpuscular Volume 88.4 fL (78.0-98.0); Mean Platelet Volume 11.2 fL (7.4-10.4); Platelet Count 219 thou/uL (130-400); RBC Distribution Width 15.3 % (11.5-14.5); Red Blood Cell (RBC) Count 2.76 mill/uL (4.70-6.10)
[2020-11-11 06:46] LABS: Band 13 % (5-11); Eosinophils 1 % (0-10); Hypochromia SLIGHT = 6-15 cells (100X) (0-5/hpf); Lymphocytes 10 % (21-51); MDiff Complete? YES; Monocytes 6 % (0-10); Neutrophil 70 % (42-75); White Blood Cell (WBC) Count 32.3 thou/uL (4.8-10.8)
[2020-11-11] MEDS: HumaLOG 300 UNITS/3 ML VIAL SC SCH (07:53)
[2020-11-11 08:22] LABS: Vancomycin, Random 4.7 ug/mL (See Comment)
[2020-11-11] MEDS: Calcitriol 0.25 MCG CAP PO SCH (09:16)
[2020-11-11] MEDS: Insulin Glargine 15 UNITS in Pre-Filled Syringe 1 EACH SC SCH (09:16)
[2020-11-11] MEDS: levETIRAcetam 500 MG TAB PO SCH ×2 (09:16→20:14)
[2020-11-11] MEDS: Sevelamer Carbonate 800 MG TAB PO SCH ×3 (09:17→18:03)
[2020-11-11] MEDS ORDERED: Iopamidol 370 76% 50 ML VIAL FS ONE (12:19)
[2020-11-11] MEDS: Atorvastatin Calcium 20 MG TAB PO SCH (20:14)
[2020-11-12] MEDS: Vancomycin HCl 25 MG/ML Oral PO SCH ×4 (02:40→20:21)
[2020-11-12] MEDS: Acetaminophen 500 MG TAB PO PRN (04:46)
[2020-11-12 06:47] LABS: Hemoglobin 8.4 g/dL (14.0-18.0); Mean Corpuscular HGB CONC 30.9 g/dL (32.0-36.0); Mean Corpuscular Hemoglobin 27.9 pg (27.0-31.0); Mean Corpuscular Volume 90.4 fL (78.0-98.0); Platelet Count 199 thou/uL (130-400); RBC Distribution Width 15.5 % (11.5-14.5); Red Blood Cell (RBC) Count 2.99 mill/uL (4.70-6.10); White Blood Cell (WBC) Count 42.5 thou/uL (4.8-10.8)
[2020-11-12 08:07] LABS: Band 16 % (5-11); Eosinophils 1 % (0-10); Hypochromia SLIGHT = 6-15 cells (100X) (0-5/hpf); Lymphocytes 5 % (21-51); MDiff Complete? YES; Monocytes 10 % (0-10); Neutrophil 68 % (42-75); Platelet Morphology Comment Appears Adequate; Polychromasia SLIGHT = 2-3 cells (100X) (0-2/hpf)
[2020-11-12] MEDS ORDERED: Ergocalciferol 1.25 MG(50,000 UNITS) CAP PO SCH ×2 (09:00)
[2020-11-12] MEDS: Sevelamer Carbonate 800 MG TAB PO SCH ×3 (09:20→16:01)
[2020-11-12] MEDS: Insulin Glargine 15 UNITS in Pre-Filled Syringe 1 EACH SC SCH (09:21)
[2020-11-12] MEDS: Calcitriol 0.25 MCG CAP PO SCH (09:21)
[2020-11-12] MEDS: levETIRAcetam 500 MG TAB PO SCH ×2 (09:21→20:19)
[2020-11-12] MEDS: Apixaban 2.5 MG TAB PO SCH ×2 (15:31→20:22)
[2020-11-12] MEDS: Aspirin 81 mg Enteric Coated Tablet PO SCH (15:31)
[2020-11-12 15:38] LABS: Neutral Fats And/Or Soaps Normal (.)
[2020-11-12] MEDS: metroNIDAZOLE 250 MG TAB PO SCH ×2 (16:00→20:22)
[2020-11-12] MEDS ORDERED: Calcium Acetate 667 MG CAP ONE (19:59)
[2020-11-12] MEDS: Cipro 250 MG TAB PO SCH (20:19)
[2020-11-12] MEDS: Atorvastatin Calcium 20 MG TAB PO SCH (20:19)
[2020-11-13] MEDS: HumaLOG 300 UNITS/3 ML VIAL SC PRN ×2 (01:09→22:07)
[2020-11-13] MEDS: Vancomycin HCl 25 MG/ML Oral PO SCH ×4 (01:45→21:59)
[2020-11-13] MEDS: Cipro 250 MG TAB PO SCH ×2 (04:48→21:59)
[2020-11-13 05:56] LABS: White Blood Cell (WBC) Count 42.1 thou/uL (4.8-10.8)
[2020-11-13 06:04] LABS: Band 9 % (5-11); Hemoglobin 8.7 g/dL (14.0-18.0); Hypochromia SLIGHT = 6-15 cells (100X) (0-5/hpf); Lymphocytes 10 % (21-51); MDiff Complete? YES; Mean Corpuscular HGB CONC 29.8 g/dL (32.0-36.0); Mean Corpuscular Hemoglobin 26.5 pg (27.0-31.0); Mean Platelet Volume 11.6 fL (7.4-10.4); Monocytes 8 % (0-10); Neutrophil 73 % (42-75); Platelet Count 232 thou/uL (130-400); Platelet Morphology Comment Appears Adequate; RBC Distribution Width 15.5 % (11.5-14.5); Red Blood Cell (RBC) Count 3.27 mill/uL (4.70-6.10)
[2020-11-13] MEDS ORDERED: Vancomycin Sliding Scale 1 EACH FS SCH (09:30)
[2020-11-13] MEDS ORDERED: Vancomycin HCl 250 MG in Sodium Chloride 0.9% 100 ML IVPB SCH (09:30)
[2020-11-13] MEDS ORDERED: Vancomycin HCl 750 MG in Sodium Chloride 0.9% 250 ML 250 ML IVPB SCH ×2 (09:30→16:00)
[2020-11-13] MEDS ORDERED: HOLD VANCOMYCIN FOR LEVEL >20 FS SCH ×2 (09:30→16:00)
[2020-11-13] MEDS ORDERED: Vancomycin 1 GM in Premix Bag 1 BAG IVPB SCH ×2 (09:30→16:00)
[2020-11-13] MEDS ORDERED: Vancomycin HCl 500 MG in Sodium Chloride 0.9% 100 ML IVPB SCH ×2 (09:30→16:00)
[2020-11-13 10:05] LABS: Hemoglobin 7.7 g/dL (14.0-18.0); Mean Corpuscular Hemoglobin 27.9 pg (27.0-31.0); Mean Corpuscular Volume 89.9 fL (78.0-98.0); Mean Platelet Volume 10.3 fL (7.4-10.4); Platelet Count 209 thou/uL (130-400); RBC Distribution Width 15.3 % (11.5-14.5); Red Blood Cell (RBC) Count 2.77 mill/uL (4.70-6.10); White Blood Cell (WBC) Count 48.1 thou/uL (4.8-10.8)
[2020-11-13 10:44] LABS: HBSAg Index 0.27 S/CO (0-0.99); Hep B Surf Ag Non-Reactive S/CO (NonReactive)
[2020-11-13] MEDS: Apixaban 2.5 MG TAB PO SCH ×2 (10:51→21:59)
[2020-11-13] MEDS: Aspirin 81 mg Enteric Coated Tablet PO SCH (10:51)
[2020-11-13] MEDS: Sevelamer Carbonate 800 MG TAB PO SCH ×3 (10:51→17:28)
[2020-11-13] MEDS: Calcitriol 0.25 MCG CAP PO SCH (10:52)
[2020-11-13] MEDS: metroNIDAZOLE 250 MG TAB PO SCH ×3 (10:52→21:59)
[2020-11-13] MEDS: levETIRAcetam 500 MG TAB PO SCH ×2 (10:52→22:00)
[2020-11-13] MEDS: Insulin Glargine 15 UNITS in Pre-Filled Syringe 1 EACH SC SCH (10:52)
[2020-11-13 15:41] LABS: Vancomycin, Random 2.3 ug/mL (See Comment)
[2020-11-13] MEDS ORDERED: Vancomycin Sliding Scale 1 EACH FS ONE (16:00)
[2020-11-13] MEDS ORDERED: Vancomycin HCl 1.25 GM in Sodium Chloride 0.9% 250 ML 250 ML IVPB SCH (16:00)
[2020-11-13] MEDS: EPOETIN ALFA-EPBX (ESRD) 10,000 UNIT/ML VIAL SC SCH (21:59)
[2020-11-13] MEDS: Atorvastatin Calcium 20 MG TAB PO SCH (21:59)
[2020-11-14] MEDS: HumaLOG 300 UNITS/3 ML VIAL SC PRN (00:57)
[2020-11-14] MEDS: Vancomycin HCl 25 MG/ML Oral PO SCH ×4 (01:22→21:22)
[2020-11-14] MEDS: Cipro 250 MG TAB PO SCH ×3 (06:42→21:22)
[2020-11-14] MEDS ORDERED: Insulin Glargine 20 UNITS in Pre-Filled Syringe 1 EACH SC SCH (07:30)
[2020-11-14] MEDS: Aspirin 81 mg Enteric Coated Tablet PO SCH (09:39)
[2020-11-14] MEDS: levETIRAcetam 500 MG TAB PO SCH ×2 (09:39→21:23)
[2020-11-14] MEDS: Sevelamer Carbonate 800 MG TAB PO SCH ×3 (09:39→18:40)
[2020-11-14] MEDS: Apixaban 2.5 MG TAB PO SCH (09:39)
[2020-11-14] MEDS: Calcitriol 0.25 MCG CAP PO SCH (09:40)
[2020-11-14] MEDS: metroNIDAZOLE 250 MG TAB PO SCH ×3 (09:40→21:23)
[2020-11-14] MEDS: Insulin Glargine 15 UNITS in Pre-Filled Syringe 1 EACH SC SCH (11:37)
[2020-11-14] MEDS: Atorvastatin Calcium 20 MG TAB PO SCH (21:23)
[2020-11-15] MEDS: Vancomycin HCl 25 MG/ML Oral PO SCH ×4 (01:47→20:40)
[2020-11-15] MEDS: Acetaminophen 500 MG TAB PO PRN ×2 (01:48→13:07)
[2020-11-15] MEDS: Cipro 250 MG TAB PO SCH ×2 (05:29→20:40)
[2020-11-15 09:37] LABS: Hemoglobin 7.9 g/dL (14.0-18.0); Mean Corpuscular Hemoglobin 27.1 pg (27.0-31.0); Mean Corpuscular Volume 90.2 fL (78.0-98.0)
[2020-11-15 09:40] LABS: Anion Gap 16 mmol/L (10-20); BUN (Urea Nitrogen) 31 mg/dL (8.9-20.6); CRP (Inflammatory) 23.27 mg/dL (= or < 0.5); Calc. Creatinine Clearance 17 mL/min (70-130); Calcium 8.9 mg/dL (7.8-10.44); Carbon Dioxide 22 mmol/L (22-29); Chloride 103 mmol/L (98-107); Glucose 60 mg/dL (70-105); Potassium 4.3 mmol/L (3.5-5.1); Sodium 137 mmol/L (136-145)
[2020-11-15] MEDS: metroNIDAZOLE 250 MG TAB PO SCH ×3 (09:59→20:40)
[2020-11-15] MEDS: Sevelamer Carbonate 800 MG TAB PO SCH ×3 (09:59→18:33)
[2020-11-15] MEDS: Aspirin 81 mg Enteric Coated Tablet PO SCH (09:59)
[2020-11-15] MEDS: Calcitriol 0.25 MCG CAP PO SCH (10:00)
[2020-11-15] MEDS: levETIRAcetam 500 MG TAB PO SCH ×2 (10:00→20:40)
[2020-11-15] MEDS: Insulin Glargine 15 UNITS in Pre-Filled Syringe 1 EACH SC SCH (11:55)
[2020-11-15 12:12] LABS: Anisocytosis SLIGHT = 6-15 cells (100X) (0-5/hpf); Band 4 % (5-11); Lymphocytes 5 % (21-51); MDiff Complete? YES; Mean Platelet Volume 11.4 fL (7.4-10.4); Monocytes 10 % (0-10); Neutrophil 81 % (42-75); Platelet Count 234 thou/uL (130-400); Platelet Morphology Comment Appears Adequate; RBC Distribution Width 15.2 % (11.5-14.5); White Blood Cell (WBC) Count 53.2 thou/uL (4.8-10.8)
[2020-11-15] MEDS: Atorvastatin Calcium 20 MG TAB PO SCH (20:40)
[2020-11-16] MEDS: Vancomycin HCl 25 MG/ML Oral PO SCH ×5 (03:25→20:46)
[2020-11-16] MEDS: Cipro 250 MG TAB PO SCH ×3 (06:26→20:46)
[2020-11-16 06:38] LABS: Band 12 % (5-11); Hemoglobin 7.6 g/dL (14.0-18.0); Lymphocytes 3 % (21-51); MDiff Complete? YES; Mean Corpuscular HGB CONC 30.3 g/dL (32.0-36.0); Mean Corpuscular Volume 89.1 fL (78.0-98.0); Mean Platelet Volume 10.9 fL (7.4-10.4); Metamyelocyte 1 % (0-0); Monocytes 5 % (0-10); Neutrophil 79 % (42-75); Platelet Count 258 thou/uL (130-400); Platelet Morphology Comment Appears Adequate; RBC Distribution Width 15.5 % (11.5-14.5); Red Blood Cell (RBC) Count 2.82 mill/uL (4.70-6.10); White Blood Cell (WBC) Count 43.1 thou/uL (4.8-10.8)
[2020-11-16 08:20] LABS: Vancomycin, Random 2.5 ug/mL (See Comment)
[2020-11-16] MEDS ORDERED: EPINEPHrine 1 MG/ML AMP ONE (10:24)
[2020-11-16] MEDS ORDERED: Bupivacaine 0.25% HCL 30 ML VIAL ONE (10:24)
[2020-11-16] MEDS ORDERED: Sodium Chloride 0.9% 0 ML ONE (10:24)
[2020-11-16] MEDS ORDERED: Fentanyl 100 MCG/2 ML VIAL ONE (10:25)
[2020-11-16] MEDS ORDERED: Dexamethasone 20 MG/5 ML VIAL ONE (11:11)
[2020-11-16] MEDS ORDERED: Calcium Chloride 1 GM/10 ML Abboject SYRINGE ONE (11:11)
[2020-11-16] MEDS ORDERED: Glycopyrrolate 0.2 MG/ML 5 ML SYRINGE ONE (11:11)
[2020-11-16] MEDS ORDERED: PHENYLEPHRINE-NS 100 MCG/ML 10 ML SYRINGE ONE (11:11)
[2020-11-16] MEDS ORDERED: PROPOFOL 200 MG/20 ML VIAL ONE (11:11)
[2020-11-16] MEDS ORDERED: Lidocaine 1% PF 5 ML VIAL ONE (11:11)
[2020-11-16] MEDS ORDERED: Rocuronium Bromide 10 MG/ML (10ML VIAL) ONE (11:11)
[2020-11-16] MEDS ORDERED: Ondansetron PF 4 MG/2 ML Vial ONE (11:11)
[2020-11-16] MEDS ORDERED: ePHEDrine 50 MG/ML VIAL ONE (11:11)
[2020-11-16] MEDS: Sevelamer Carbonate 800 MG TAB PO SCH ×2 (12:43→18:11)
[2020-11-16] MEDS: metroNIDAZOLE 250 MG TAB PO SCH ×4 (12:44→20:46)
[2020-11-16] MEDS: Calcitriol 0.25 MCG CAP PO SCH (12:44)
[2020-11-16] MEDS: Insulin Glargine 15 UNITS in Pre-Filled Syringe 1 EACH SC SCH (12:44)
[2020-11-16] MEDS: levETIRAcetam 500 MG TAB PO SCH ×3 (12:44→20:46)
[2020-11-16] MEDS ORDERED: SUGAMMADEX SODIUM 200 MG/2 ML VIAL ONE (13:35)
[2020-11-16] MEDS ORDERED: Sodium Chloride 0.9% 10 ML ONE ×2 (13:48→13:49)
[2020-11-16] MEDS ORDERED: EPOETIN ALFA-EPBX (ESRD) 10,000 UNIT/ML VIAL SC SCH (16:45)
[2020-11-16] MEDS: Atorvastatin Calcium 20 MG TAB PO SCH ×2 (20:08→20:46)
[2020-11-16] MEDS: HumaLOG 300 UNITS/3 ML VIAL SC PRN (21:21)
[2020-11-16] MEDS ORDERED: Sodium Chloride 0.9% 500 ML IV SCH (22:45)
[2020-11-16 22:54] LABS: pH, Arterial 6.99 (7.35-7.45)
[2020-11-16 22:55] LABS: Actual Bicarbonate (HCO3a) 10.6 mEq/L (22-28); Base Excess (BEa) -19.5 mEq/L (-2.0 to +3.0); CO2 Tension 45.4 mmHg (35.0-45.0); Hemoglobin (Hb) 7.6 g/dL (14.0-18.0); O2 Tension (PaO2), arterial 38.4 mmHg (80.0-100.0)
[2020-11-16 22:56] LABS: Calcium, Ionized (arterial) 1.29 mmol/L (1.12-1.30); Carboxyhemoglobin (COHb) 0.9 gm% (0.0-3.0); Potassium - ABG Lab 4.92 mmol/L (3.70-5.30); Puncture Site LRA
[2020-11-16] MEDS ORDERED: Sodium Bicarb 50 MEQ/50 ML Abboject 8.4% SYRINGE IVP SCH ×2 (23:30→23:59)
[2020-11-16 23:45] LABS: Hemoglobin 6.7 g/dL (14.0-18.0); Mean Corpuscular HGB CONC 29.1 g/dL (32.0-36.0); Mean Corpuscular Hemoglobin 27.1 pg (27.0-31.0); Mean Corpuscular Volume 93.3 fL (78.0-98.0); Mean Platelet Volume 10.6 fL (7.4-10.4); Platelet Count 273 thou/uL (130-400); RBC Distribution Width 15.7 % (11.5-14.5); Red Blood Cell (RBC) Count 2.46 mill/uL (4.70-6.10); White Blood Cell (WBC) Count 41.7 thou/uL (4.8-10.8)
[2020-11-16] MEDS: Sodium Chloride 0.9% 500 ML IV SCH (23:47)
[2020-11-16 23:54] LABS: Lactic Acid 1.9 mmol/L (0.5-2.2)
[2020-11-17] LABS: BUN (Urea Nitrogen) 52 mg/dL (8.9-20.6); Calc. Creatinine Clearance 12 mL/min (70-130); Calcium 8.8 mg/dL (7.8-10.44); Chloride 104 mmol/L (98-107); Glucose 335 mg/dL (70-105); Potassium 4.9 mmol/L (3.5-5.1); Sodium 138 mmol/L (136-145)
[2020-11-17 00:02] LABS: Carbon Dioxide Less than 8 mmol/L (22-29)
[2020-11-17 00:05] LABS: Band 22 % (5-11); Hypochromia SLIGHT = 6-15 cells (100X) (0-5/hpf); Lymphocytes 3 % (21-51); MDiff Complete? YES; Metamyelocyte 1 % (0-0); Monocytes 5 % (0-10); Neutrophil 69 % (42-75); Platelet Morphology Comment Appears Adequate
[2020-11-17] MEDS: Sodium Chloride 0.9% 500 ML IV SCH (01:44)
[2020-11-17] MEDS ORDERED: Sodium Bicarb 50 MEQ/50 ML Abboject 8.4% SYRINGE IVP SCH ×2 (02:00→07:15)
[2020-11-17] MEDS ORDERED: Dextrose 5 %-0.45 % NaCl 1,000 ML IV PRN (06:11)
[2020-11-17] MEDS ORDERED: Electrolyte Replacement Protocol 1 EACH IVPB ONE (06:11)
[2020-11-17] MEDS ORDERED: NS 0.9% w/ 20 MEQ KCL 1,000 ML IV PRN ×2 (06:11)
[2020-11-17] MEDS ORDERED: Sodium Chloride 0.9% 1,000 ML IV PRN ×4 (06:11)
[2020-11-17] MEDS ORDERED: D5 1/2 NS w/20 mEq KCL 1,000 ML IV PRN (06:11)
[2020-11-17] MEDS ORDERED: HUMULIN R 100 UNITS in Sodium Chloride 0.9% 100 ML IVPB SCH (06:15)
[2020-11-17 06:53] LABS: Hemoglobin 8.5 g/dL (14.0-18.0); Mean Corpuscular HGB CONC 30.5 g/dL (32.0-36.0); Mean Corpuscular Hemoglobin 27.9 pg (27.0-31.0); Mean Corpuscular Volume 91.5 fL (78.0-98.0); Mean Platelet Volume 11.1 fL (7.4-10.4); Platelet Count 253 thou/uL (130-400); RBC Distribution Width 14.8 % (11.5-14.5); Red Blood Cell (RBC) Count 3.03 mill/uL (4.70-6.10); White Blood Cell (WBC) Count 36.2 thou/uL (4.8-10.8)
[2020-11-17] MEDS ORDERED: Norepinephrine 8 MG/0.9% NS 250 ML IVPB PRN (06:55)
[2020-11-17 07:03] LABS: Anion Gap 30 mmol/L (10-20); BUN (Urea Nitrogen) 53 mg/dL (8.9-20.6); Calc. Creatinine Clearance 12 mL/min (70-130); Calcium 8.5 mg/dL (7.8-10.44); Carbon Dioxide 15 mmol/L (22-29); Chloride 103 mmol/L (98-107); Glucose 382 mg/dL (70-105); Potassium 5.1 mmol/L (3.5-5.1); Sodium 143 mmol/L (136-145)
[2020-11-17] MEDS: Cipro 250 MG TAB PO SCH (07:45)
[2020-11-17] MEDS: Vancomycin HCl 25 MG/ML Oral PO SCH ×2 (07:45→11:59)
[2020-11-17 07:58] LABS: Band 11 % (5-11); Lymphocytes 11 % (21-51); MDiff Complete? YES; Monocytes 1 % (0-10); Neutrophil 77 % (42-75); Platelet Morphology Comment Appears Adequate; Polychromasia SLIGHT = 2-3 cells (100X) (0-2/hpf)
[2020-11-17] MEDS ORDERED: Lorazepam 1 MG TAB PO PRN (10:44)
[2020-11-17] MEDS ORDERED: Ondansetron ODT 4 MG TAB PO PRN (10:44)
[2020-11-17] MEDS ORDERED: Acetaminophen 650 MG Suppository PR PRN (10:44)
[2020-11-17] MEDS ORDERED: Promethazine HCl 25 MG SUPP PR PRN (10:44)
[2020-11-17 11:26] VITALS: BP 74/34; TEMP 95.1
[2020-11-17] MEDS: metroNIDAZOLE 250 MG TAB PO SCH (11:59)
[2020-11-17] MEDS: Sevelamer Carbonate 800 MG TAB PO SCH (11:59)
[2020-11-17] MEDS: levETIRAcetam 500 MG TAB PO SCH (11:59)
[2020-11-17] MEDS: Calcitriol 0.25 MCG CAP PO SCH (11:59)
[2020-11-17 12:29] VITALS: BMI 20.2
[2020-11-18] MEDS ORDERED: EPOETIN ALFA-EPBX (ESRD) 3,000 UNIT/ML VIAL IVP SCH (09:00)
[2020-11-18] MEDS ORDERED: Epoetin (NON-ESRD) 20,000 UNITS/ML ML IVP SCH (09:00)
[2020-11-18] MEDS ORDERED: EPOETIN ALFA-EPBX (ESRD) 2,000 UNIT/ML VIAL IVP SCH (09:00)
== END 2020-11-17 13:37 | disposition hospice, inpatient (51) | DRG 853 ==
LOC: ERS 08:07 → ERHOLD 10:00 → SJJU 11-05 14:04 → CCU 11-17 01:22 → T4-B 11-17 09:10
PROVIDERS: ADMIT Family Medicine; ATTEND Family Medicine
PROC: 3E033XZ Introduction of Vasopressor into Peripheral Vein, Percutaneous Approach (ICD-10-PCS; principal; 2020-11-04)
PROC: 06HY33Z Insertion of Infusion Device into Lower Vein, Percutaneous Approach (ICD-10-PCS; 2020-11-04)
PROC: 5A1D70Z Performance of Urinary Filtration, Intermittent, Less than 6 Hours Per Day (ICD-10-PCS; 2020-11-04)
PROC: 30233N1 Transfusion of Nonautologous Red Blood Cells into Peripheral Vein, Percutaneous Approach (ICD-10-PCS; 2020-11-06)
PROC: B41J1ZZ Fluoroscopy of Other Lower Arteries using Low Osmolar Contrast (ICD-10-PCS; 2020-11-11)
PROC: B544ZZZ Ultrasonography of Left Jugular Veins (ICD-10-PCS; 2020-11-16)
PROC: 0JB70ZZ Excision of Back Subcutaneous Tissue and Fascia, Open Approach (ICD-10-PCS; 2020-11-16)
PROC: 02HV33Z Insertion of Infusion Device into Superior Vena Cava, Percutaneous Approach (ICD-10-PCS; 2020-11-17)
DX: A41.9 Sepsis, unspecified organism (principal); E10.10 Type 1 diabetes mellitus with ketoacidosis without coma; N18.6 End stage renal disease; G93.41 Metabolic encephalopathy; R65.21 Severe sepsis with septic shock; I12.0 Hypertensive chronic kidney disease with stage 5 chronic kidney disease or end stage renal disease; E46 Unspecified protein-calorie malnutrition; A04.72 Enterocolitis due to Clostridium difficile, not specified as recurrent; E87.2 Acidosis; T82.838A Hemorrhage due to vascular prosthetic devices, implants and grafts, initial encounter; I96 Gangrene, not elsewhere classified; E10.52 Type 1 diabetes mellitus with diabetic peripheral angiopathy with gangrene; E87.5 Hyperkalemia; Z66 Do not resuscitate; Z20.822 Contact with and (suspected) exposure to COVID-19; E10.22 Type 1 diabetes mellitus with diabetic chronic kidney disease; E78.5 Hyperlipidemia, unspecified; F17.210 Nicotine dependence, cigarettes, uncomplicated; E78.00 Pure hypercholesterolemia, unspecified; D63.1 Anemia in chronic kidney disease; E86.0 Dehydration; E83.41 Hypermagnesemia; L89.152 Pressure ulcer of sacral region, stage 2; L89.310 Pressure ulcer of right buttock, unstageable; E10.51 Type 1 diabetes mellitus with diabetic peripheral angiopathy without gangrene; F12.10 Cannabis abuse, uncomplicated; E10.42 Type 1 diabetes mellitus with diabetic polyneuropathy; K52.9 Noninfective gastroenteritis and colitis, unspecified; Z53.29 Procedure and treatment not carried out because of patient's decision for other reasons; G40.909 Epilepsy, unspecified, not intractable, without status epilepticus; Z88.0 Allergy status to penicillin; Z79.82 Long term (current) use of aspirin; Z79.01 Long term (current) use of anticoagulants; Z79.899 Other long term (current) drug therapy; Z79.4 Long term (current) use of insulin; Z99.2 Dependence on renal dialysis; Z89.511 Acquired absence of right leg below knee; Z86.73 Personal history of transient ischemic attack (TIA), and cerebral infarction without residual deficits; Z91.15 Patient's noncompliance with renal dialysis; Z91.14 Patient's other noncompliance with medication regimen; Z86.718 Personal history of other venous thrombosis and embolism; Z68.20 Body mass index [BMI] 20.0-20.9, adult; Y84.6 Urinary catheterization as the cause of abnormal reaction of the patient, or of later complication, without mention of misadventure at the time of the procedure
CPT/HCPCS: 36415; 36416; 36430; 36556; 36600; 71045; 76942; 80048; 80053; 80202; 82010; 82140; 82270; 82330; 82550; 82553; 82705; 82803; 82805; 83605; 83630; 83735; 84100; 84145; 84484; 85007; 85014; 85018; 85025; 85027; 85048; 85049; 85652; 86140; 86780; 86850; 86900; 86901; 87040; 87045; 87046; 87070; 87076; 87077; 87081; 87186; 87205; 87340; 87389; 87427; 87449; 88304; 90935; 93005; 93306; 93923; 96374; 96375; C1788; G0257; J0171; J0692; J1100; J1642; J1644; J1815; J2001; J2405; J2704; J3010; J3370; J3490; P9016; Q5105; Q9967; S0020; U0002

== ENCOUNTER 2020-11-17 13:46 | Inpatient (IN) | payer OTHER ==
[2020-11-17] MEDS ORDERED: Acetaminophen 650 MG Suppository PR PRN (14:30)
[2020-11-17] MEDS ORDERED: Haloperidol Lactate 5 MG/ML VIAL SLOW IVP PRN (14:30)
[2020-11-17] MEDS ORDERED: Ondansetron PF 4 MG/2 ML Vial IVP PRN (14:30)
[2020-11-17] MEDS: Lorazepam 2 MG/ML VIAL SLOW IVP SCH ×2 (15:59→19:59)
[2020-11-17] MEDS: Morphine 4 MG/ML VIAL SLOW IVP SCH ×4 (16:00→22:06)
[2020-11-17] MEDS ORDERED: Lorazepam 2 MG/ML VIAL SLOW IVP SCH (20:00)
[2020-11-18 00:58] VITALS: BP 61/30
== END 2020-11-17 21:40 | disposition expired | DRG 951 ==
LOC: T4-B 13:46
PROVIDERS: ADMIT Family Medicine; ATTEND Family Medicine
DX: Z51.5 Encounter for palliative care (principal); E11.10 Type 2 diabetes mellitus with ketoacidosis without coma; N18.6 End stage renal disease; G93.41 Metabolic encephalopathy; A41.9 Sepsis, unspecified organism; R65.21 Severe sepsis with septic shock; I12.0 Hypertensive chronic kidney disease with stage 5 chronic kidney disease or end stage renal disease; E87.2 Acidosis; Z66 Do not resuscitate; E78.5 Hyperlipidemia, unspecified; F17.210 Nicotine dependence, cigarettes, uncomplicated; F12.10 Cannabis abuse, uncomplicated; G40.909 Epilepsy, unspecified, not intractable, without status epilepticus; D63.1 Anemia in chronic kidney disease; L89.159 Pressure ulcer of sacral region, unspecified stage; E87.5 Hyperkalemia; E83.41 Hypermagnesemia; R79.89 Other specified abnormal findings of blood chemistry; E86.0 Dehydration; E83.39 Other disorders of phosphorus metabolism; Z89.511 Acquired absence of right leg below knee; Z88.0 Allergy status to penicillin; Z86.73 Personal history of transient ischemic attack (TIA), and cerebral infarction without residual deficits; Z86.718 Personal history of other venous thrombosis and embolism; Z91.15 Patient's noncompliance with renal dialysis; Z79.899 Other long term (current) drug therapy; Z99.2 Dependence on renal dialysis
CPT/HCPCS: J2060; J2270